=== PATIENT | male | born 1935 | race Hispanic/Latino ===

== ENCOUNTER 2017-02-28 16:13 | Inpatient (IN) | payer MEDICARE, OTHER ==
[2017-02-28 16:24] VITALS: BMI 21.2
[2017-02-28] MEDS ORDERED: Piperacill/Tazo 4.5gm in NS 4.5 GM/100 ML BAG IVPB STA (16:24)
[2017-02-28] MEDS ORDERED: Vancomycin 1gm in NS 250ml 1 GM/250 ML BAG IVPB STA (16:24)
--- NOTE | 2017-02-28 16:33 | ED PDOC ---
Arrival/HPI - General Time Seen by Provider: 02/28/17 16:15 Historian: EMS EM Caveat: Altered Mental Status - History of Present Illness Narrative History of Present Illness (Text): 02/28/17 16:29 81yo male with hx of dementia, presents with altered mental status, decreased PO intake, no urine output since yesterday. PMD: Dr. Newman Past Medical History - Provider Review Nursing Documentation Reviewed: Yes - Infectious Disease Hx of Infectious Diseases: None - Tetanus Immunization Tetanus Immunization: Unknown - Cardiac Hx Cardiac Disorders: Yes Hx Hypertension: Yes - Pulmonary Hx Respiratory Disorders: No - Neurological Hx Neurological Disorder: Yes (Syncope 08/2016, 10/2016) HX Cerebrovascular Accident: Yes (2014) - HEENT Hx Macular Degeneration: Yes - Renal Hx Renal Disorder: No - Endocrine/Metabolic Hx Diabetes Mellitus Type 2: Yes - Hematological/Oncological Hx Blood Disorders: No - Integumentary Hx Dermatological Disorder: No - Musculoskeletal/Rheumatological Hx Falls: No - Gastrointestinal Hx Gastrointestinal Disorders: No Other/Comment: egd for removal of foreigh body - Genitourinary/Gynecological Hx Incontinence: Yes - Psychiatric Hx Psychophysiologic Disorder: No Hx Emotional Abuse: No Hx Physical Abuse: No Hx Substance Use: No - Surgical History Hx Appendectomy: Yes - Anesthesia Hx Anesthesia Reactions: Yes Hx Malignant Hyperthermia: No - Suicidal Assessment Feels Threatened In Home Enviroment: No Family/Social History Family/Social History: Unknown Family HX Smoking Status: Former Smoker Hx Alcohol Use: No Hx Substance Use: No Hx Substance Use Treatment: No Allergies/Home Meds Allergies/Adverse Reactions: Allergies No Known Allergies Allergy (Verified 11/21/16 17:18) Home Medications: Home Meds Medication Instructions Recorded Confirmed QUEtiapine [SEROquel] 0 mg PO 02/28/17 Review of Systems - Review of Systems Systems not reviewed;Unavailable: Altered Mental Status Physical Exam - Physical Exam Narrative Physical Exam (Text): Physical exam cachectic in appearance, protecting his airway, following simple commands - Systems Exam Head: Present: Atraumatic, Normocephalic Pupils: Present: PERRL Extroacular Muscles: Present: EOMI Conjunctiva: Present: Normal Mouth: Present: Dry Mucous Membranes Neck: Present: Normal Range of Motion. No: MIDLINE TENDERNESS, Paraspinal Tenderness Respiratory/Chest: Present: Clear to Auscultation, Good Air Exchange. No: Respiratory Distress, Accessory Muscle Use, Tachypneic Cardiovascular: Present: Regular Rate and Rhythm, Normal S1, S2, Peripheal Pulses Present. No: Murmurs Abdomen: Present: Normal Bowel Sounds. No: Tenderness, Distention, Peritoneal Signs, Rebound, Guarding Back: Present: Normal Inspection. No: Midline Tenderness, Paraspinal Tenderness Upper Extremity: Present: Normal Inspection. No: Cyanosis, Edema Lower Extremity: Present: Normal Inspection. No: Edema Neurological: Present: motor grossly intact, following simple commands Skin: Present: Warm, Dry, Normal Color. No: Rashes Lymphatic: Present: OX3, NI, NC Psychiatric: Present: Abusable to tactile and verbal stimuli, not agitated Vital Signs Temp Pulse Resp BP Pulse Ox 02/28/17 18:04 89 19 134/51 L 95 02/28/17 16:29 99.2 F 72 20 145/66 92 L Medical Decision Making ED Course and Treatment: 02/28/17 16:33 81yo male with failure to thrive, decreased PO intake and no urine output. Appears dry and cachectic on examination. No airway compromise. As per EMS, there is no DNR/DNI order. Prior Visits: Notes and results from previous visits were reviewed. Patient discharged on after being evaluated for syncopal episode. EKG shows NSR at [address] segment elevations. Interpreted by me. 02/28/17 17:51 Chest xray interpreted by ED physician shows no pneumothorax, no cardiomegaly, no infiltrates 02/28/17 18:11 on reeval, pt alert and awake, speaking full sentence with out difficulty, no focal neurological deficits on examination dw Dr. Merly newman in detail, agrees with med/surg admission to his service - Lab Interpretations Lab Results: 02/28/17 16:50 02/28/17 16:50 Lab Results 02/28/17 16:50: Sodium 136, Chloride 105, Potassium 3.6, Carbon Dioxide 26, Anion Gap 9 L, BUN 21, Creatinine 1.2, Est GFR ( Amer) > 60, Est GFR (Non -Af Amer) 58, Random Glucose 96, Calcium 8.3 L, Phosphorus 3.1, Magnesium 1.7, Total Bilirubin 0.5, AST 20, ALT 22, Alkaline Phosphatase 63, Troponin I Pending , Total Protein 5.9, Albumin 2.8 L, Globulin 3.1, Albumin/Globulin Ratio 0.9 L 02/28/17 16:50: pO2 51, VBG pH 7.30 L, VBG pCO2 56.0, VBG HCO3 27.6, VBG Total CO2 29.3 H, VBG O2 Sat (Calc) 89.0 H, VBG Base Excess 0.1, VBG Potassium 3.7, Sodium 138.0, Chloride 110.0 H, Glucose 91, Lactate 1.2, FiO2 21.0, Venous Blood Potassium 3.7 02/28/17 16:50: PT 11.7, INR 1.08, APTT 29.8 02/28/17 16:50: WBC 10.9 D, RBC 3.51, Hgb 10.4 L, Hct 31.2 L, MCV 88.9, MCH 29.6, MCHC 33.3, RDW 13.4, Plt Count 268, MPV 10.1, Gran % 69.8 H, Lymph % (Auto ) 21.4 L, Mcculloch % (Auto) 6.1 H, Eos % (Auto) 1.7, Baso % (Auto) 1.0, Gran # 7.61 H, Lymph # 2.3, Mcculloch # 0.7 H, Eos # 0.2, Baso # 0.11 02/28/17 16:24: POC Glucose (mg/dL) 133 H - RAD Interpretation Radiology Orders: 02/28/17 16:24 CHEST PORTABLE [RAD] Stat - Medication Orders Current Medication Orders: Discontinued Medications Sodium Chloride 2,000 ml/ IV (SUPPLIES) 2,000 mls @ 3,810.18 mls/hr IV ONCE ONE PRN Reason: 60 ML/KG/HR Stop: 02/28/17 16:25 Last Admin: 02/28/17 18:04 Dose: 3,810.18 mls/hr Vancomycin HCl (Vancomycin 1gm) 1 gm in 250 mls @ 167 mls/hr IVPB STAT STA PRN Reason: Protocol Stop: 02/28/17 17:53 Piperacillin Sod/Tazobactam Sod (Zosyn 4.5 Gm In Ns 100ml) 4.5 gm in 100 mls @ 200 mls/hr IVPB STAT STA PRN Reason: Protocol Stop: 02/28/17 16:53 Last Admin: 02/28/17 18:04 Dose: 200 mls/hr Disposition/Present on Arrival - Present on Arrival Any Indicators Present on Arrival: No History of DVT/PE: No History of Uncontrolled Diabetes: Yes Urinary Catheter: No History Surgical Site Infection Following: None - Disposition Have Diagnosis and Disposition been Completed?: Yes Diagnosis: Dehydration Disposition: HOSPITALIZED Disposition Time: 18:15 Patient Plan: Observation Condition: FAIR
[2017-02-28 17:13] LABS: ADD MANUAL DIFF? NO
[2017-02-28 17:22] LABS: VENOUS BLOOD GAS BASE EXCESS 0.1 mmol/L (0.0-2.0)
[2017-02-28 17:23] LABS: BASO # 0.11 K/mm3 (0.0-2.0); EOS # 0.2 (0.0-0.7); EOS % 1.7 % (1.5-5.0); GRAN # 7.61 (1.4-6.5); GRAN % 69.8 % (50.0-68.0); HEMATOCRIT 31.2 % (42.0-52.0); LYMPH # 2.3 (1.2-3.4); LYMPH % 21.4 % (22.0-35.0); MEAN CELL VOLUME 88.9 fL (80.0-105.0); MEAN CORPUSCULAR HEMOGLOBIN 29.6 pg (25.0-35.0); MEAN CORPUSCULAR HGB CONC 33.3 g/dl (31.0-37.0); MEAN PLATELET VOLUME 10.1 fl (7.0-11.0); MONO # 0.7 (0.1-0.6); MONO % 6.1 % (1.0-6.0); PLATELET COUNT 268 10^3/uL (120.0-450.0); RED CELL DISTRIBUTION WIDTH 13.4 % (11.5-14.5); WHITE BLOOD COUNT 10.9 10^3/ul (4.5-11.0)
[2017-02-28 17:32] LABS: INR 1.08 (0.93-1.08); PARTIAL THROMBOPLASTIN TIME 29.8 Seconds (23.7-30.8)
[2017-02-28 17:34] LABS: ALB/GLOB RATIO 0.9 (1.1-1.8); ALKALINE PHOSPHATASE 63 U/L (38-133); ALT/SGPT 22 U/L (7-56); AST/SGOT 20 U/L (15-59); BILIRUBIN,TOTAL 0.5 mg/dL (0.2-1.3); BLOOD UREA NITROGEN 21 mg/dL (7-21); CALCIUM 8.3 mg/dL (8.4-10.5); CARBON DIOXIDE 26 mmol/L (21-33); CHLORIDE 105 mmol/L (98-107); GFR AFRICAN-AMERICAN > 60; GLUCOSE,RANDOM 96 mg/dL (70-110); MAGNESIUM 1.7 mg/dL (1.7-2.2); PHOSPHOROUS 3.1 mg/dL (2.5-4.5); POTASSIUM 3.6 mmol/L (3.6-5.0); SODIUM 136 mmol/L (132-148); TOTAL PROTEIN 5.9 g/dL (5.8-8.3)
[2017-02-28 18:13] LABS: TROPONIN I < 0.01 ng/mL
--- NOTE | 2017-02-28 22:12 | CARD ---
APPROVED REPORT EKG Measurement Heart [id number] <Conclusion> Normal sinus rhythm Nonspecific intraventricular block Nonspecific T wave abnormality Abnormal ECG
[2017-02-28] MEDS ORDERED: Pneumococcal 23-Valent Vaccine IM ONE (22:52)
[2017-03-01 07:20] LABS: PH,URINE 6.5 (4.7-8.0); URINE BILIRUBIN NEGATIVE (NEGATIVE); URINE BLOOD SMALL (NEGATIVE); URINE GLUCOSE (UA) NEGATIVE (NEGATIVE); URINE KETONE NEGATIVE (NEGATIVE); URINE LEUKOCYTE ESTERASE NEGATIVE Leu/uL (NEGATIVE); URINE PROTEIN NEGATIVE mg/dL (<30 mg/dL); URINE UROBILINOGEN 0.2 E.U./dL (<1 E.U./dL)
[2017-03-01 07:26] LABS: URINE APPEARANCE SL CLOUDY (CLEAR); URINE COLOR YELLOW (YELLOW)
[2017-03-01 07:35] LABS: URINE RBC 0 - 2 /hpf (0-2); URINE WBC NEGATIVE /hpf (0-6)
--- NOTE | 2017-03-01 10:07 | RAD ---
HISTORY: Sepsis Patient COMPARISON: 11/04/2016 FINDINGS: LUNGS: lung volumes are increased and fairly radiolucent -an element of emphysema/COPD is possible. Mild interstitial lung disease also is a consideration given the mild prominence of the interstitial lung markings. No significant change with the prior study is perceived. No interval consolidation suggested. PLEURA: No significant pleural effusion identified, no pneumothorax apparent. CARDIOVASCULAR: Normal heart size. Atherosclerotic vascular calcifications and thoracic aortic unfolding OSSEOUS STRUCTURES: Generalized osteopenia mild right shoulder arthrosis VISUALIZED UPPER ABDOMEN: Normal. OTHER FINDINGS: None. IMPRESSION: No interval infiltrate. Other pulmonary findings chronicity inferred are as noted above
--- NOTE | 2017-03-01 10:08 | HP ---
CHIEF COMPLAINT AND HISTORY OF PRESENT ILLNESS: This is a 81-year-old male who is coming into the [facility] with changes in his mental status. The patient lives at home with his . He has been havi ng decreased p.o. intake. The patient was recently discharged from the hospital. He is not able to give much information because of his underlying confusion. He had ripped out 2 IVs and is trying to rip out third IV this morning. He was given Ativan to help with his confusion. SOCIAL HISTORY: No history of smoking, drinking actively. PAST MEDICAL HISTORY: Syncope, fracture of T12, dementia, dyslipidemia, constipation, CVA. ALLERGIES: No known drug allergies. PAST SURGICAL HISTORY: Appendectomy. Past medical history is hypertension, osteoporosis, macular degeneration, diabetes type 2. PHYSICAL EXAMINATION: VITAL SIGNS: The patient has a temperature of 98.6, pulse of 81, blood pressure 132/85, respirations 20, O2 saturation 94%. GENERAL: Patient lying in bed, flat, and in no apparent distress. HEAD AND NECK EXAM: Atraumatic, normocephalic. Conjunctivae are pink. Throat clear and mouth with moist mucosa. Oropharynx benign. EYES: Extraocular movements are intact. PERRLA. NECK: Supple. No JVD, thyromegaly, or adenopathy. No bruits. HEART: S1 and S2 regular rate and rhythm. No murmurs, rubs, or gallops. LUNGS: Clear to auscultation bilaterally. No wheezing rales or rhonchi appreciated. No retraction s on exam. ABDOMEN: Soft, nontender, nondistended. Bowel sounds are positive in all quadrants. No rebound. No hepatosplenomegaly. EXTREMITIES: No cyanosis, clubbing, or edema. NEURO: No facial asymmetry, tongue is midline, no uvula deviation. Power is 5/5 in upper extremity and 5/5 in lower extremity. Sensation is normal in upper extremity and lower extremity. PSYCH: Awake, alert, oriented x 0. The patient has poor insight. He is agitated. : No CVA tenderness VASCULAR: 2+ pulses in carotid and pedal pulses. SKIN: No erythema or abnormal nodules noted. SPINE: Normal curvature. LYMPHADENOPATHY: No anterior cervical or posterior cervical adenopathy. No inguinal adenopathy. LABORATORY DATA: Reviewed. White count of 10.9, hemoglobin of 10.4. Chemistry shows creatinine is 1.2. Urine shows blood that is small, otherwise negative. EKG shows sinus rhythm at 78, no ST-T changes. Chest x-ray shows no infiltrates. ASSESSMENT: 1. Delirium. 2. Dementia. 3. Hypertension. 4. Osteoporosis. 5. Macular degeneration. 6. Diabetes type 2. 7. History of fracture of T12 vertebra. PLAN: The patient is going to be admitted to the hospital. He is going to be on Ativan. I will get psychiatric evaluation. The patient is going to be placed on Seroquel. The patient was given antib iotics. I do not see a need for antibiotics. The patient does not have a fever. Does not have an e levated white count. Urine looks fairly good. The patient will need physical therapy. I will speak to the patient's to give her an update. Jakob Newman MD cc: [id number] TT: 03/01/2017 10:07:59 nj
[2017-03-01] MEDS: POLYETHYLENE GLYCOL 3350 17 GM/Dose PACKET PO SCH (10:40)
--- NOTE | 2017-03-01 18:32 | CON ---
DATE: 03/01/2017 Shortly, patient is 81-year-old male with history of dementia. The patient was admitted on the medical floor for evaluation of altered mental status, decreased p.o. intake, and also no urine output for the past 24 hours. Psych consult was called for evaluation of altered mental status. Thi s production underwriter attempted to speak to this patient on the medical side. The patient was status post medicat ion. The patient got Ativan 0.5 mg IV push at the nighttime and this production underwriter was not able to have rosina ningful conversation. Moreover, patient got Seroquel 50 mg at 10:30 and patient was very sleepy. Co llateral information was obtained from the nursing staff. The patient yesterday presented to be rest less, agitated, was trying to scratch himself. Today, patient is much calmer. VITAL SIGNS: Stable. LABORATORY DATA: Labs reviewed. MEDICATIONS: Reviewed. The patient was on Ativan 0.5 mg q.6 hours p.r.n. for agitation and Seroquel was 50 mg daily. We will decrease the dose of Seroquel to 12.5 mg and move it to the nighttime. This production underwriter reviewed previous history. The patient was seen by Dr. Piña in the past, most recent w as in 06/2016. The patient was on Seroquel 50 mg at bedtime and ____ as well as Ativan. IMPRESSION: Altered mental status, most likely related to the medical issues as well as patient pron e to have delirium because of dementia. PLAN: Continue current management. As per nursing staff, patient had urine output. This production underwriter fallon pollock redistribute Seroquel and decrease the dose to 12.5 mg at the nighttime. Should continue Ativan as needed. We will try to follow up with this patient tomorrow. Thank you very much for letting me participate in care of your patient. Mela Colbert MD cc: [phone] TT: 03/01/2017 18:32:20 Confirmation # [id number] Dictation # [id number] sn
[2017-03-02 07:11] LABS: BLOOD UREA NITROGEN 16 mg/dL (7-21); CARBON DIOXIDE 27 mmol/L (21-33); CHLORIDE 104 mmol/L (98-107); GFR AFRICAN-AMERICAN > 60; GLUCOSE,RANDOM 87 mg/dL (70-110); MAGNESIUM 1.7 mg/dL (1.7-2.2); POTASSIUM 3.8 mmol/L (3.6-5.0); SODIUM 138 mmol/L (132-148)
[2017-03-02] MEDS: POLYETHYLENE GLYCOL 3350 17 GM/Dose PACKET PO SCH (10:19)
--- NOTE | 2017-03-02 10:37 | PN ---
DATE: 03/02/2017 Shortly, the patient is a 81-year-old male with long history of Alzheimer's dementia. The patient was admitted on the medical side for altered mental status. The patient was dehydrated. Als o, patient had decreased urinary output and low p.o. intake. Psych consult was called for evaluation of altered mental status. Yesterday, this lyric writer attempted to speak to the patient, but the patient was deeply sleeping, status post medication. The patient was followed up today. The patient presen anastasiya more alert, oriented to himself. The patient kept repeating that he ____ and was not able to giv e the address, but seems to be confused. The patient does not know that he is in the hospital. The patient was not in acute distress, was calm and cooperative. The patient was having intermittent eye contact. Speech was rambling. The patient was telling random things about previous rehab, about th e fact that he cannot walk. The patient denied being depressed, denied thoughts of harming himself, denied thoughts of harming others. The patient denied hallucinations. The patient does not appear t o be internally preoccupied, but appears to be confused. VITAL SIGNS: Stable. Temperature 97.5, blood pressure 158/98, respirations 20, oxygen saturation is 96. MEDICATIONS: Reviewed. The patient is on Ativan IV push q. 6 hours p.r.n. Last dose was on 02/28. The patient was on Seroquel yesterday 50 mg daily. The patient was very sedated and this lyric writer swit ched Seroquel and decrease the dose to 12.5 mg at the nighttime scheduled. The patient had a good ni ght's sleep. Did not have any behavioral incident. LABORATORIES: Reviewed. Most recent was from 02/28. MENTAL STATUS EXAMINATION: As this lyric writer described above, the patient was alert, confused, oriented in self only. Speech was monotone, low volume, underproductive. Mood described as "I'm not depress ed." Affect was flat. Thought process confabulation and disorganized. Thought content: The patien t denied visual, auditory, tactile hallucinations. Denied paranoid ideations. The patient denied th oughts of harming himself or others, denied intent or plan. The patient has episodes of restless beh avior, trying to climb off the bed, but improving. Insight and judgment are impaired. The patient h as chronic Alzheimer's dementia. Impulses are better controlled. IMPRESSION: Delirium on dementia, dehydration and poor p.o. intake, but patient is improving, had ur ine output. PLAN: This lyric writer is not sure what patient's baseline. Social work evaluation. Case management inv olvement in order to find if the patient is safe to continue to live at home. The patient is improvi ng obviously. The patient is on Seroquel 12.5 mg at the nighttime which could improve sleep and conf usion. At the same time, family needs to be involved in order to make disposition plan. Case will b e discussed with Dr. Newman. Thank you very much for letting me participate in care of your patient. Should you have any question s, give me a call back. Mela Colbert MD cc: [phone] TT: 03/02/2017 10:36:55 Confirmation # [id number] Dictation # [id number] tn
--- NOTE | 2017-03-02 11:47 | PN ---
DATE: 03/02/2017 DATE: 03/02/2017 The patient has no complaints of any chest pain. No shortness of breath, no headaches. He remains c onfused. PHYSICAL EXAMINATION: VITAL SIGNS: Temperature is 97.5, pulse of 80. Blood pressure is 158/98. Respirations 20. GENERAL: The patient comfortable, in no acute distress. HEENT: Anicteric sclerae. Moist mucosa. NECK: No JVD or adenopathy. CARDIAC: S1/S2. No murmurs. No rubs. Regular. RESPIRATORY: Clear to auscultation bilaterally. No wheezes, rales, or rhonchi. Good air entry. ABDOMEN: Bowel sounds are positive, soft, nontender, and nondistended. EXTREMITIES: No edema. Has 1+ pulses. LABS: Creatinine is 1.0. ASSESSMENT: 1. Delirium. 2. Dementia. 3. Hypertension. 4. Osteoporosis. 5. Macular degeneration. 6. Diabetes type 2. PLAN: The patient is comfortable. He is on Seroquel. He will continue. He is going to be on Kiera AX for constipation and Ativan as needed. Jakob Newman MD cc: [id number] TT: 03/02/2017 11:47:03 Confirmation # [id number] Dictation # [id number] jn
--- NOTE | 2017-03-02 15:13 | CP.PCM.CON ---
History of Present Illness - History of Present Illness History of Present Illness: PODIATRY CONSULT NOTE 81 year-old male with hx of dementia, presents with altered mental status seen concerning elongated toenails. Pt is a poor histprian and his recounting of PMH is spotty. Patient denies recent fever/ chills/ chest pain/ sob/ nausea/ vomiting. Past Patient History - Infectious Disease Hx of Infectious Diseases: None - Tetanus Immunizations Tetanus Immunization: Unknown - Past Social History Smoking Status: Former Smoker - CARDIAC Hx Cardiac Disorders: Yes Hx Hypercholesterolemia: Yes Hx Hypertension: Yes - PULMONARY Hx Respiratory Disorders: No - NEUROLOGICAL HX Cerebrovascular Accident: Yes (2014) - HEENT Hx Macular Degeneration: Yes Other/Comment: egd for removal of foreign body 06/08/14 - RENAL Hx Chronic Kidney Disease: No - ENDOCRINE/METABOLIC Hx Diabetes Mellitus Type 2: Yes - HEMATOLOGICAL/ONCOLOGICAL Hx Blood Disorders: No - INTEGUMENTARY Other/Comment: reddened sacrum/ long curled thick toenails both feet/ unable to do proper skin assesment due to agitation - MUSCULOSKELETAL/RHEUMATOLOGICAL Hx Falls: Yes (last one couple weeks ago) Hx Unsteady Gait: Yes (w/ch can't walk/stand) - GASTROINTESTINAL Hx Gastrointestinal Disorders: No Other/Comment: egd for removal of foreigh body - GENITOURINARY/GYNECOLOGICAL Hx Incontinence: Yes Other/Comment: too weak to walk to bathroom/frequent falls - PSYCHIATRIC Hx Psychophysiologic Disorder: No Hx Depression: Yes Hx Emotional Abuse: No Hx Physical Abuse: No Other/Comment: up at night/pushes furniture/ jumps oob/ can become violent - SURGICAL HISTORY Hx Appendectomy: Yes Other/Comment: sebaceous cyst removal - ANESTHESIA Hx Anesthesia Reactions: Yes Hx Malignant Hyperthermia: No Meds Allergies/Adverse Reactions: Allergies Allergy/AdvReac Type Severity Reaction Status Date / Time No Known Allergies Allergy Verified 11/21/16 17:18 - Medications Medications: Current Medications Alprazolam (Xanax) 0.5 mg PO Q6H PRN; Protocol PRN Reason: Anxiety Polyethylene Glycol (Miralax) 17 gm PO DAILY [facility] Last Admin: 03/02/17 10:19 Dose: 17 gm Quetiapine Fumarate (Seroquel) 12.5 mg PO HS [facility] Last Admin: 03/01/17 23:00 Dose: 12.5 mg Physical Exam - Constitutional Appears: Well, Non-toxic, Toxic - Extremities Exam Additional comments: VASC: DP and PT pedal pulses bilaterally were graded 1/4. Capillary refill time to level of digits was <4 seconds. Temperature gradient runs normal. No pedal edema noted. No calf tenderness bilaterally. DERM: Bilateral 4th interspace maceration with mal-odor noted, and skin flaking. No open wounds, lesions, or macerations noted bilaterally. Skin is thin bilaterally, though supple. Elongated, thickened nail plates with subungal debris to all 10 digits NEURO: Protective sensation if grossly diminished bilaterally. Negative Babinski bilaterally. MUSCK: Bilateral foot, leg, and thigh decreased muscle tone, density, and definition noted compared. Knee joints bilateral are unable to fully extend into 180 degree extension. No tenderness to palpations noted bilaterally. Pedal muscle strength weak bilaterally in all medial, lateral, and posterior muscle groups graded 5/5. Pedal muscle strength in anterior muscle groups is graded 4/5. - Neurological Exam Neurological exam: Alert Results - Vital Signs Recent Vital Signs: Last Vital Signs Temp 97.5 F L 03/02/17 07:30 Pulse 80 03/02/17 07:30 Resp 20 03/02/17 07:30 BP 158/98 H 03/02/17 07:30 Pulse Ox 96 03/02/17 07:30 - Labs Result Diagrams: 02/28/17 16:50 03/02/17 06:30 Labs: Laboratory Results - last 24 hr 03/02/17 03/02/17 06:30 06:30 Sodium 138 Potassium 3.8 Chloride 104 Carbon Dioxide 27 Anion Gap 11 BUN 16 Creatinine 1.0 Est GFR ( Amer) > 60 Est GFR (Non-Af Amer) > 60 Random Glucose 87 Calcium 9.0 Magnesium 1.7 TSH 3rd Generation 2.02 Assessment & Plan - Assessment and Plan (Free Text) Assessment: 78 year old male with 1) Onychomycosis and tinea pedis 2) Bilateral lower extremity weakness, left leg muscle atrophy. Plan: Pt was evaluated and treated with attending Dr. Goins present. Chart, labs, and vitals were reviewed. Ordered Lotrisone for used on feet bilaterally. Aseptic onycho-reduction performed to all 10 nail plates using nail nipper without incident down to hygienic length. Podiatry will continue to follow patient while in house. Pt is stable per podiatric standpoint for discharge. Thank you for allowing podiatry service to participate in the care of this patient. - Date & Time Date: 03/02/17 Time: 10:20
[2017-03-02] MEDS: Clotrimazole/Betamethasone Lotion(30 ml) TOP SCH (20:19)
--- NOTE | 2017-03-03 09:17 | PN ---
DATE: 03/03/2017 SUBJECTIVE: The patient has no complaints of any chest pain, no shortness of breath, no headaches or dizziness. PHYSICAL EXAMINATION: VITAL SIGNS: Temperature is 98.7, pulse is 71, blood pressure 130/86, respirations 18. GENERAL: The patient comfortable, in no acute distress. HEENT: Anicteric sclerae. Moist mucosa. NECK: No JVD or adenopathy. CARDIAC: S1/S2. No murmurs. No rubs. Regular. RESPIRATORY: Clear to auscultation bilaterally. No wheezes, rales, or rhonchi. Good air entry. ABDOMEN: Bowel sounds are positive, soft, nontender, and nondistended. EXTREMITIES: No edema. Has 1+ pulses. LABORATORY DATA: White count of 10.9, hemoglobin 10.4, creatinine is 1.0. ASSESSMENT: 1. Delirium. 2. Dementia, Alzheimer's type. 3. Hypertension. 4. Osteoporosis. 5. Macular degeneration. 6. Diabetes type 2. PLAN: The patient is currently comfortable. He is on MiraLax for constipation. He is on Seroquel. He is going continue on Xanax. The patient was seen by Dr. Goins. The patient is also being foll owed by psychiatry. The patient is on a heart healthy diet. His blood cultures have been negative. Behavior is better, improved. Jakob Newman MD cc: [id number] TT: 03/03/2017 09:17:05 Confirmation # [id number] Dictation # [id number] [place]
[2017-03-03] MEDS: POLYETHYLENE GLYCOL 3350 17 GM/Dose PACKET PO SCH (11:37)
[2017-03-03] MEDS: Clotrimazole/Betamethasone Lotion(30 ml) TOP SCH ×2 (11:37→17:52)
--- NOTE | 2017-03-03 14:46 | PN ---
DATE: 03/03/2017 Shortly, the patient is a 81-year-old male with a history of dementia. The patient was adm itted on the medical side for altered mental status as well as decreased urine output. Psych consult was called for evaluation of mental status and change in mental status. This display card writer changed patient 's medications. The patient was started on Seroquel 12.5 mg at the nighttime. The patient was follo wed up today. The patient presented to be sleepy, easily arousable. No behavioral incidents. The p atient has dementia. This display card writer has impression that patient is doing much better. Two days ago, yue ramos was trying to climb off the bed, was restless. Right now, patient is much calmer. This display card writer spoke to the director of social work about advanced directives because we need to discuss treatment options in the future as well as family needs to be involved. VITAL SIGNS: This display card writer reviewed vital signs. Vital signs seem to be stable. Temperature 98.7, pu lse 71, blood pressure 138/86, respirations 18, oxygen saturation is 97. MEDICATIONS: Reviewed. Seroquel 12.5 mg at the nighttime. The patient is on MiraLax, Lotrisone. L ooks much better. Urinalysis was done on the , within normal limits. Notes reviewed from Dr. Newman. MENTAL STATUS EXAMINATION: The patient appeared to be sleepy, easily arousable. No behavioral incid ents. The patient was oriented to self only. Speech is monotonous and underproductive. The patient denied being depressed. At times, thought process confabulation. The patient denied visual, audito ry, or tactile hallucinations. Denied paranoid ideations. No signs of agitation or trying to harm h imself. Insight and judgment are impaired. Impulses are better controlled. IMPRESSION: Delirium on dementia, dehydration which is much better. The patient's urine output is i mproving. PLAN: Continue current management, director of social work. This display card writer spoke to the director of social work and monika fournier. Family should be involved in order to obtain advanced directives. I know that patient li ves with . needs to be involved. Meanwhile, there are no signs of agitation or aggression. The patient is stable on Seroquel 12.5 mg at the nighttime. This display card writer will sign off. Should you have any questions, give me a call back. Thank you very much for letting me participate in the care of your patient. Mela Colbert MD cc: [phone] TT: 03/03/2017 14:45:48 Confirmation # [id number] Dictation # [id number] rn
[2017-03-03 17:01] VITALS: RESP 20
[2017-03-04] MEDS: POLYETHYLENE GLYCOL 3350 17 GM/Dose PACKET PO SCH (10:28)
[2017-03-04] MEDS: Clotrimazole/Betamethasone Lotion(30 ml) TOP SCH (10:29)
[2017-03-04 16:34] VITALS: BP 128/80; PULSE 84; TEMP 98.9; O2SAT 93
--- NOTE | 2017-03-04 19:32 | DS ---
The patient is a 81-year-old, seen and examined, lying in bed, seems to be comfortable. PHYSICAL EXAMINATION: GENERAL: He is lethargic, sleepy, only opens eyes on verbal command. VITAL SIGNS: The patient is afebrile, pulse 86, respirations 20, blood pressure 134/80. LUNGS: Bilateral fair airflow, no rhonchi or crackle. HEART: S1, S2 audible. ABDOMEN: Soft, nontender, no rebound, no guarding. NEUROLOGIC: He is sleepy, but arousable. LABORATORY DATA: No new labs available today. Dr. Plaza and Dr. Newman's notes reviewed and apprec iated. ASSESSMENT: 1. Dementia with dehydration. 2. History of hypertension. 3. History of osteoporosis. 4. Visual impairment. 5. Non-insulin dependent diabetes. PLAN: Plan is for the discharge today. According to nurse, will come and pick him up in the af [place]. Initial plan was for long-term, but apparently because of insurance reason, it did not go t hrough, so the patient will be followed by Dr. Newman as outpatient. Drew Garcia MD cc: [phone] TT: 03/04/2017 19:31:21 ln
== END 2017-03-04 18:16 | disposition home or self-care (01) | DRG 57 ==
LOC: ED 16:13 → ERH 18:15 → 5RNO 21:18 → OBSVTOIN 03-01 15:46
PROVIDERS: ADMIT Internal Medicine Nephrology; ATTEND Internal Medicine Nephrology
DX: G30.9 Alzheimer's disease, unspecified (principal); R64 Cachexia; F02.80 Dementia in other diseases classified elsewhere, unspecified severity, without behavioral disturbance, psychotic disturbance, mood disturbance, and anxiety; E11.9 Type 2 diabetes mellitus without complications; I10 Essential (primary) hypertension; B35.1 Tinea unguium; E86.0 Dehydration; M62.58 Muscle wasting and atrophy, not elsewhere classified, other site; M81.0 Age-related osteoporosis without current pathological fracture; H35.30 Unspecified macular degeneration; H54.7 Unspecified visual loss; E78.5 Hyperlipidemia, unspecified; Z87.81 Personal history of (healed) traumatic fracture; B35.3 Tinea pedis; R53.1 Weakness; E78.00 Pure hypercholesterolemia, unspecified; Z79.84 Long term (current) use of oral hypoglycemic drugs; Z86.73 Personal history of transient ischemic attack (TIA), and cerebral infarction without residual deficits; Z87.891 Personal history of nicotine dependence; Z90.49 Acquired absence of other specified parts of digestive tract; R32 Unspecified urinary incontinence; R62.7 Adult failure to thrive; K59.00 Constipation, unspecified; R41.0 Disorientation, unspecified; R26.81 Unsteadiness on feet; F32.89 Other specified depressive episodes

== ENCOUNTER 2017-03-28 16:21 | Inpatient (IN) | payer MEDICARE, OTHER ==
[2017-03-28] MEDS ORDERED: Sodium Chloride 0.9% 1,000 ML IV STA ×4 (16:28→19:14)
--- NOTE | 2017-03-28 16:30 | ED PDOC ---
Arrival/HPI <Gaurang Mckoy - Last Filed: 03/28/17 19:40> - General Historian: EMS EM Caveat: Dementia - Critical Care Critical Care Time: Excluding Proc Time <Roberto Mejia - Last Filed: 03/28/17 20:50> - General Chief Complaint: Altered Mental Status Time Seen by Provider: 03/28/17 16:26 - History of Present Illness Narrative History of Present Illness (Text): 03/28/17 16:27 The patient is a 81yo male, PMHx of dementia, multiple strokes, is brought to the Emergency department by EMS for evaluation of altered mental status, vomiting and abdominal pain. A full HPI from the patient is limited due to his dementia. Per EMS, pt was found at bedside with brown vomitus on his bed, also the pt had an episode of brown vomit on his way to the Emergency department. Pt currently states he has abdominal pain. No other complaints. PCP: Dr. Orantes (per pt's prior records) (Roberto Mejia) Past Medical History - Provider Review Nursing Documentation Reviewed: Yes - Infectious Disease Hx of Infectious Diseases: None - Tetanus Immunization Tetanus Immunization: Unknown - Cardiac Hx Cardiac Disorders: Yes Hx Hypertension: Yes - Pulmonary Hx Respiratory Disorders: No - Neurological HX Cerebrovascular Accident: Yes (2014) Hx Dementia: Yes - HEENT Hx Macular Degeneration: Yes Other/Comment: egd for removal of foreign body 06/08/14 - Renal Hx Renal Disorder: No - Endocrine/Metabolic Hx Diabetes Mellitus Type 2: Yes - Hematological/Oncological Hx Blood Disorders: No - Integumentary Other/Comment: reddened sacrum/ long curled thick toenails both feet/ unable to do proper skin assesment due to agitation - Musculoskeletal/Rheumatological Hx Falls: Yes (last one couple weeks ago) Hx Unsteady Gait: Yes (w/ch can't walk/stand) - Gastrointestinal Hx Gastrointestinal Disorders: No Other/Comment: egd for removal of foreigh body - Genitourinary/Gynecological Hx Incontinence: Yes Other/Comment: too weak to walk to bathroom/frequent falls - Psychiatric Hx Psychophysiologic Disorder: No Hx Depression: Yes Hx Emotional Abuse: No Hx Physical Abuse: No Hx Substance Use: No Other/Comment: up at night/pushes furniture/ jumps oob/ can become violent - Surgical History Hx Appendectomy: Yes Other/Comment: sebaceous cyst removal - Anesthesia Hx Anesthesia Reactions: Yes Hx Malignant Hyperthermia: No - Suicidal Assessment Feels Threatened In Home Enviroment: No <Roberto Mejia - Last Filed: 03/28/17 20:50> Family/Social History - Physician Review Nursing Documentation Reviewed: Yes Family/Social History: Unknown Family HX Smoking Status: Former Smoker Hx Alcohol Use: No Hx Substance Use: No Hx Substance Use Treatment: No <Roberto Mejia - Last Filed: 03/28/17 20:50> Allergies/Home Meds <BrayancharGaurang richardson - Last Filed: 03/28/17 19:40> <Roberto Mejia - Last Filed: 03/28/17 20:50> Allergies/Adverse Reactions: Allergies No Known Allergies Allergy (Verified 11/21/16 17:18) Review of Systems - Review of Systems Systems not reviewed;Unavailable: Dementia Gastrointestinal: Abdominal Pain (diffuse), Vomiting (x2 ) <Roberto Mejia - Last Filed: 03/28/17 20:50> Physical Exam Vital Signs Reviewed: Yes Appearance: Positive for: Other (pallor, diaphoretic) - Systems Exam Head: Present: Atraumatic, Normocephalic Pupils: Present: PERRL Extroacular Muscles: Present: Other (left eye deviation) Conjunctiva: Present: Other (pale) Cardiovascular: Present: Bradycardic Abdomen: Present: Tenderness (diffuse) Rectal: Present: Other (Stool brown; ) Upper Extremity: Present: Neurovascularly Intact, Other (weakness noted bilaterally) Lower Extremity: Present: Neurovascularly Intact, Other (weakness noted bilaterally) Neurological: Present: Other (left eye deviation, facial asymmetry) Psychiatric: Present: Alert (AO x2) <Roberto Mejia - Last Filed: 03/28/17 20:50> Vital Signs Temp Pulse Resp BP Pulse Ox 03/28/17 19:28 72 19 130/71 93 L 03/28/17 19:03 64 19 88/43 L 95 03/28/17 18:32 61 24 101/51 L 93 L 03/28/17 18:10 70 20 98/62 L 95 03/28/17 17:47 73 24 88/40 L 92 L 03/28/17 17:26 76 18 114/75 97 03/28/17 17:03 91 H 20 132/66 95 03/28/17 16:54 67 19 103/53 L 96 03/28/17 16:30 59 L 74/32 L 03/28/17 16:22 97 F L 59 L 20 81/48 L 96 Medical Decision Making <Gaurang Mckoy - Last Filed: 03/28/17 19:40> - Critical Care Critical Care Minutes: 60 minutes - RAD Interpretation [employer] Layout: ED Physician - EKG Interpretation Interpreted by ED Physician: Yes <Willian Mejiao Delores - Last Filed: 03/28/17 20:50> ED Course and Treatment: R femoral triple lumen central line was placed by Resident under the supervision of the Attending Physician. CXR was ordered after procedure because R IJ was attempted. Repeat CXR in 2 hours. (LeeleeKarlay) 03/28/17 16:37 Impression: 81 yo male presents with altered mental status, vomiting and abdominal pain. Differential Diagnosis included but are not limited to: Altered Mental Status, r /o GI Bleed vs Anemia, Abdominal Pain r/o Diverticulitis, diverticulosis Plan: -- EKG -- CT AP w/o PO or IV contrast -- CT Head w/o contrast -- IV fluids -- Protonix 80 mg IVP -- Type and screen -- Labs -- Blood culture -- Urinalysis -- Reassess and disposition Prior Visits: Notes and results from previous visits were reviewed. Patient was last seen in the Emergency department on 11/21/16. Progress Notes: 03/28/17 16:45 Called blood bank to prepare 2 units of blood since patient looked pale, was hypotensive and reported to have coffee ground emesis. Repeat vitals after bolus of fluids show: Blood pressure of 103/53; HR of 70 bpm 03/28/17 17:01 Pt's labs indicate hemoglobin levels of 11.5; blood bank order cancelled. 03/28/17 17:03 Pt with an episode of vomiting in ER; Zofran 4mg IV ordered. Guaiac test of vomit is negative. Pt w/ repeat BP of 132/88 HR of 82 s/p completion of 1.5 liter of fluids. 03/28/17 18:30 Dr. Magallanes called regarding CT AP who states the study will be read soon. I was able to reach again after second call. She states that patient was not doing well for a couple of days. He was not acting like himself and slowly decompensating. After PT therapy today at 4pm patient was very week so she called EMS. 03/28/17 19:49 Right femoral central line placed by surgical garment fitter with my supervision. Attempt made with right IJ with no success but we were able to get right femoral. CXR ordered. Pt started on levophed secondary to hypotension despite fluid resuscitations. Patient complaining of abdominal pain. Abd soft but tender diffusely with guarding. CT AP still pending results. Case discussed with ICU Dr. Woodward who accepts the case. Case discussed with Dr. Sanchez who knows patient well. He will place under his service. 03/28/17 19:[address] Mccormack. Surgical Attending who I reviewed CT results with. She recommended calling surgical garment fitter and she will see patient on admission. I discussed case with Dr. Dill, surgical garment fitter who will come see patient in ED in 30 minutes. It was reported patient had a bowel movement and pain improved. Blood pressure improved with levophed IV and IVF. CXR reviewed with no PTX s/p attempt of right IJ. (Roberto Mejia) - Lab Interpretations Lab Results: 03/28/17 16:35 03/28/17 16:35 Lab Results 03/28/17 16:35: Blood Type A POSITIVE, Antibody Screen Negative, Crossmatch See Detail, BBK History Checked Patient has bt 03/28/17 16:35: pO2 74 H, VBG pH 7.37, VBG pCO2 41.0, VBG HCO3 23.7, VBG Total CO2 25.0, VBG O2 Sat (Calc) 97.6 H, VBG Base Excess -1.5 L, VBG Potassium 3.9, Sodium 139.0, Chloride 106.0, Glucose 146 H, Lactate 3.1 H, FiO2 21.0, Venous Blood Potassium 3.9 03/28/17 16:35: Sodium 137, Chloride 105, Potassium 3.8, Carbon Dioxide 24, Anion Gap 12, BUN 21, Creatinine 1.2, Est GFR ( Amer) > 60, Est GFR (Non- Af Amer) 58, Random Glucose 133 H, Calcium 9.2, Total Bilirubin 0.6, AST 23, ALT 11, Alkaline Phosphatase 61, Lactate Dehydrogenase 379, Total Creatine Kinase 28 L, Troponin I < 0.01, Total Protein 6.3, Albumin 3.2, Globulin 3.2, Albumin/Globulin Ratio 1.0 L, Amylase 84, Lipase 48 03/28/17 16:35: PT 11.5, INR 1.06, APTT 27.5 03/28/17 16:35: WBC 10.6, RBC 3.80, Hgb 11.5 L, Hct 33.7 L, MCV 88.7, MCH 30.3, MCHC 34.1, RDW 13.4, Plt Count 346, MPV 10.4, Gran % 32.6 L, Lymph % (Auto) 54.8 H, Chase % (Auto) 4.8, Eos % (Auto) 5.1 H, Baso % (Auto) 2.7, Gran # 3.44, Lymph # 5.8 H, Chase # 0.5, Eos # 0.5, Baso # 0.29 03/28/17 16:26: Blood Type Pending, Antibody Screen Pending, BBK History Checked Patient has bt - RAD Interpretation Narrative RAD Interpretations (Text): 03/28/17 16:59 Chest X-ray reviewed, no acute disease. No infiltrates noted. No free air in diaphragm noted. (Roberto Mejia) Radiology Orders: 03/28/17 16:26 CHEST PORTABLE [RAD] Stat 03/28/17 16:28 ABD & PELVIS W/O PO OR IV CONT [CT] Stat 03/28/17 16:29 HEAD W/O CONTRAST [CT] Stat - EKG Interpretation EKG Interpretation (Text): 03/28/17 16:41 Sinus bradycardia 1st degree AV block ST changes noted in anterolateral leads (Roberto Mejia) - Medication Orders Current Medication Orders: Heparin Sodium (Porcine) (Heparin) 5,000 units SC Q12 OMAR PRN Reason: Protocol NOREPINEPHRINE BIT/0.9 % NACL (Levophed 4 Mg/ 250 Ml Ns Premixed) 4 mg in 250 mls @ 15 mls/hr IV .[id number] PRN; Protocol; 4 MCG/MIN PRN Reason: TITRATE PER MD ORDER Last Admin: 03/28/17 19:24 Dose: 3.8 mls/hr Sodium Chloride (Sodium Chloride 0.9%) 1,000 mls @ 125 mls/hr IV .Q8H OMAR Vancomycin HCl (Vancomycin 1gm) 1 gm in 250 mls @ 167 mls/hr IVPB Q12H OMAR PRN Reason: Protocol Piperacillin Sod/Tazobactam Sod (Zosyn 3.375 In Ns 100ml) 100 mls @ 200 mls/hr IVPB Q6 OMAR PRN Reason: Protocol Stop: 03/29/17 06:29 Morphine Sulfate (Morphine) 2 mg IVP Q4H PRN PRN Reason: Pain, severe (8-10) Ondansetron HCl (Zofran Inj) 4 mg IVP Q6H PRN PRN Reason: Nausea/Vomiting Pantoprazole Sodium (Protonix Inj) 40 mg IVP DAILY OMAR Discontinued Medications Sodium Chloride (Sodium Chloride 0.9%) 1,000 mls @ 999 mls/hr IV .Q1H1M STA Stop: 03/28/17 17:28 Last Admin: 03/28/17 17:00 Dose: 999 mls/hr Sodium Chloride (Sodium Chloride 0.9%) 1,000 mls @ 999 mls/hr IV .Q1H1M STA Stop: 03/28/17 17:34 Last Admin: 03/28/17 17:01 Dose: 999 mls/hr Piperacillin Sod/Tazobactam Sod (Zosyn 4.5 Gm In Ns 100ml) 4.5 gm in 100 mls @ 200 mls/hr IVPB STAT STA PRN Reason: Protocol Stop: 03/28/17 18:06 Last Admin: 03/28/17 18:08 Dose: 200 mls/hr Sodium Chloride (Sodium Chloride 0.9%) 1,000 mls @ 999 mls/hr IV .Q1H1M STA Stop: 03/28/17 19:03 Last Admin: 03/28/17 18:18 Dose: 999 mls/hr NOREPINEPHRINE BIT/0.9 % NACL (Levophed 4 Mg/ 250 Ml Ns Premixed) Confirm Administered Dose 4 mg in 250 mls @ ud IV .STK-MED ONE Stop: 03/28/17 19:11 Last Admin: 03/28/17 19:21 Dose: 1 mg Sodium Chloride (Sodium Chloride 0.9%) 1,000 mls @ 999 mls/hr IV .Q1H1M STA Stop: 03/28/17 20:14 Last Admin: 03/28/17 19:21 Dose: 999 mls/hr Lidocaine HCl (Lidocaine 1% (20ml)) Confirm Administered Dose 20 ml .ROUTE .STK- MED ONE Stop: 03/28/17 18:37 Ondansetron HCl (Zofran Inj) 4 mg IVP STAT STA Stop: 03/28/17 17:04 Last Admin: 03/28/17 17:09 Dose: 4 mg Pantoprazole Sodium (Protonix Inj) 80 mg IVP STAT STA Stop: 03/28/17 16:27 Last Admin: 03/28/17 17:02 Dose: 80 mg Procedures - Time-Out Type of Procedure: Femoral Central Line Site of Procedure: R femoral vein Correct Patient (with visual ID + MR# on ID Band): Yes Correct Procedure: Yes Correct Site Marked: Yes X-Ray Marked: NA Medication Reconciliation / Bloodwork / Allergies Checked: Yes Physician Name: Gaurang Mckoy PGY1, Dr. Mejia RN Name: Leila - Central Line Central Line Lumen: triple Central Line Procedure: betadine prep, sterile drapes applied, sterile dressing applied Central Line Postion: femoral (R) Anesthesia: Lidocaine cc's of anesthesia: 5 Complications: none Central Line Post Position: sutured, good blood return, position confirmed w/ CXR <Gaurang Mckoy - Last Filed: 03/28/17 19:40> <Roberto Mejia - Last Filed: 03/28/17 20:50> - Central Line Progress: Procedure was done by the Resident under the supervision of the ED attending ( Gaurang Mckoy) Disposition/Present on Arrival <Gaurang Mckoy - Last Filed: 03/28/17 19:40> - Present on Arrival Any Indicators Present on Arrival: No History of DVT/PE: No History of Uncontrolled Diabetes: No Urinary Catheter: No History of Decub. Ulcer: No History Surgical Site Infection Following: None - Disposition Have Diagnosis and Disposition been Completed?: Yes Disposition Time: 20:49 Patient Plan: ICU <Roberto Mejia - Last Filed: 03/28/17 20:50> - Disposition Diagnosis: Dehydration, Hypotension, Abdominal pain, Vomiting, Altered mental status Disposition: HOSPITALIZED Patient Problems: Current Active Problems Problem Status Onset Abdominal pain Acute Altered mental status Acute Dehydration Acute Hypotension Acute Vomiting Acute Condition: CRITICAL
[2017-03-28 16:55] LABS: BASO # 0.29 K/mm3 (0.0-2.0); BASO % 2.7 % (0.0-3.0); EOS # 0.5 (0.0-0.7); EOS % 5.1 % (1.5-5.0); GRAN # 3.44 (1.4-6.5); GRAN % 32.6 % (50.0-68.0); HEMOGLOBIN 11.5 gm/dL (14.0-18.0); LYMPH # 5.8 (1.2-3.4); LYMPH % 54.8 % (22.0-35.0); MEAN CELL VOLUME 88.7 fL (80.0-105.0); MEAN CORPUSCULAR HEMOGLOBIN 30.3 pg (25.0-35.0); MEAN CORPUSCULAR HGB CONC 34.1 g/dl (31.0-37.0); MEAN PLATELET VOLUME 10.4 fl (7.0-11.0); MONO # 0.5 (0.1-0.6); MONO % 4.8 % (1.0-6.0); PLATELET COUNT 346 10^3/uL (120.0-450.0); RED CELL DISTRIBUTION WIDTH 13.4 % (11.5-14.5); WHITE BLOOD COUNT 10.6 10^3/ul (4.5-11.0)
[2017-03-28 16:56] LABS: VENOUS BLOOD GAS BASE EXCESS -1.5 mmol/L (0.0-2.0); VENOUS BLOOD GAS PO2 74 mm/Hg (30-55); VENOUS BLOOD PH 7.37 (7.32-7.43)
[2017-03-28 17:04] LABS: ALBUMIN 3.2 g/dL (3.0-4.8); ALT/SGPT 11 U/L (7-56); AMYLASE 84 U/L (35-125); AST/SGOT 23 U/L (15-59); BLOOD UREA NITROGEN 21 mg/dL (7-21); CALCIUM 9.2 mg/dL (8.4-10.5); GFR AFRICAN-AMERICAN > 60; GFR NON-AFRICAN AMERICAN 58; LIPASE 48 U/L (23-300)
[2017-03-28 17:07] LABS: INR 1.06 (0.93-1.08); PARTIAL THROMBOPLASTIN TIME 27.5 Seconds (23.7-30.8); PROTHROMBIN TIME 11.5 Seconds (9.9-11.8)
[2017-03-28] MEDS ORDERED: Piperacill/Tazo 4.5gm in NS 4.5 GM/100 ML BAG IVPB STA (17:37)
--- NOTE | 2017-03-28 17:48 | CT ---
PROCEDURE: CT HEAD WITHOUT CONTRAST. HISTORY: Altered mental status h/o dementia h/o cva COMPARISON: 11/21/2016 TECHNIQUE: Axial computed tomography images were obtained through the head/brain without intravenous contrast. Radiation dose: Total exam DLP = 774.23 mGy-cm. This CT exam was performed using one or more of the following dose reduction techniques: Automated exposure control, adjustment of the mA and/or kV according to patient size, and/or use of iterative reconstruction technique. FINDINGS: HEMORRHAGE: No intracranial hemorrhage. BRAIN: No mass effect or edema. Cortical atrophy, periventricular small vessel disease old lacune or infarcts, right cerebellar infarct. Evidence of old brainstem infarction on the right. VENTRICLES: Unremarkable. No hydrocephalus. CALVARIUM: Unremarkable. PARANASAL SINUSES: Unremarkable as visualized. No significant inflammatory changes. MASTOID AIR CELLS: Unremarkable as visualized. No inflammatory changes. OTHER FINDINGS: None. IMPRESSION: No acute intracranial abnormalities. No significant findings to account for the clinical presentation. No significant interval change compared to the prior examination(s).
[2017-03-28 17:55] LABS: TROPONIN I < 0.01 ng/mL
[2017-03-28] MEDS ORDERED: Lidocaine 1% Inj (20ml) ONE (18:36)
[2017-03-28] MEDS ORDERED: NOREPINEPHRINE BIT/0.9 % NACL 4 MG/250 ML BAG IV ONE (19:10)
[2017-03-28] MEDS: NOREPINEPHRINE BIT/0.9 % NACL 4 MG/250 ML BAG IV PRN (19:24)
--- NOTE | 2017-03-28 20:01 | CT ---
EXAM: CT Abdomen and Pelvis Without Intravenous Contrast CLINICAL HISTORY: The patient age is 81 years old and is male; Pain; Abdominal pain; Generalized; Additional info: Abd pain R/O diverticulitis/osis Facility exam id and description: Ct [id number] abd pelvis w/o po or iv cont TECHNIQUE: Axial computed tomography images of the abdomen and pelvis without intravenous contrast. This CT exam was performed using one or more of the following dose reduction techniques: automated exposure control, adjustment of the mA and/or kV according to patient size, and/or use of iterative reconstruction technique. Coronal and sagittal reformatted images were created and reviewed. EXAM DATE/TIME: 03/28/2017 4:28 PM COMPARISON: CT - ABD PELVIS W/O PO OR IV CONT 11/04/2016 6:01:33 PM FINDINGS: Lower thorax: Small bilateral pleural effusions are identified, right side greater than left. Atelectatic changes are visualized at the lung bases. There is coronary artery calcification. Fluid is calcifications are visualized at the lung bases. ABDOMEN: Liver: There is heterogeneous density of the liver, without a well-defined mass. Gallbladder and bile ducts: A small calcified gallstone is visualized. Pancreas: Atrophic changes are noted of the pancreas. Spleen: No splenomegaly. Adrenals: No mass. Kidneys and ureters: Nonspecific perinephric stranding is identified bilaterally. There is no hydronephrosis bilaterally. Stomach and bowel: There is fecal distention of the rectum with rectal wall thickening. This wall thickening may be inflammatory or malignant in etiology. The degree of wall thickening has progressed compared to the prior study. There is fecal distention of the sigmoid colon as well, but to a lesser degree. Fecal distention was visualized on the prior study as well. No significant diverticular disease of the colon. Appendix: The appendix is not visualized. PELVIS: Bladder: There is mild enlargement of the prostate gland with elevation of the bladder floor. Bands of hyperdensity are seen within the dependent portion of the bladder, likely representing bladder calculi. This has mildly progressed. Within the right posterior bladder, this measures 1.9 x 0.2 cm. Reproductive: See above. Subperitoneal space: There is mild stranding of the posterior perirectal fat, similar to the prior study. ABDOMEN and PELVIS: Intraperitoneal space: No free air. Bones/joints: There is a stable compression fracture of the T12 vertebral body. Hypertrophic degenerative changes are noted within the spine. Osteopenia. A stable small nonspecific sclerotic lesion is identified within the right iliac bone. Soft tissues: See above. Vasculature: There is atherosclerotic calcification of the abdominal aorta. No abdominal aortic aneurysm. Lymph nodes: No enlarged lymph nodes. IMPRESSION: 1. There is fecal distention of the rectum with rectal wall thickening. This wall thickening may be inflammatory or malignant in etiology. The degree of wall thickening has progressed compared to the prior study. There is fecal distention of the sigmoid colon as well, but to a lesser degree. Fecal distention was visualized on the prior study as well. Due to progression of rectal wall thickening, colonoscopy is recommended. 2. There is mild stranding of the posterior perirectal fat, similar to the prior study. Stercoral ulceration cannot be excluded. 3. There is mild enlargement of the prostate gland with elevation of the bladder floor. 4. Small bilateral pleural effusions are identified, right side greater than left. Atelectatic changes are visualized at the lung bases. 5. Cholelithiasis. 6. Additional CT findings described above.
[2017-03-28 21:35] LABS: VENOUS BLOOD GAS PO2 33 mm/Hg (30-55); VENOUS BLOOD PH 7.21 (7.32-7.43)
--- NOTE | 2017-03-28 21:41 | CP.PCM.CON ---
<DYLON RAMOS - Last Filed: 03/29/17 05:09> History of Present Illness - History of Present Illness History of Present Illness: 81 year old male PMH dementia s/p stroke 2004, presented to the [facility] ED on 2016. With complaints of an episode of vomiting while laying as per family members. Patient also complained of abdominal pain in the ED. According to history provided by family members, patient is disabled due to previous episodes of stroke and his taken care of by his . Patient is known to have episodes of orthostasis when being elevated after laying down. Full HPI is limited due to patients incapacity to communicate well in conjunction with dementia. PMD: Dr. 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 absent: Acrocyanosis, Chest Pain, Edema - Respiratory Respiratory: absent: Cough, Dyspnea, Wheezing - Gastrointestinal Gastrointestinal: Abdominal Pain, Constipation, Diarrhea. absent: Bloating - Genitourinary Genitourinary: Change in Urinary Stream, Other. absent: Hx /Renal Surgery - Integumentary Integumentary: absent: Bleeding Lesions, Change in Nails - Neurological Neurological: Confusion Past Patient History - Infectious Disease Hx of Infectious Diseases: None - Tetanus Immunizations Tetanus Immunization: Unknown - Past Social History Smoking Status: Former Smoker - CARDIAC Hx Cardiac Disorders: Yes Hx Hypertension: Yes - PULMONARY Hx Respiratory Disorders: No - NEUROLOGICAL HX Cerebrovascular Accident: Yes (2014) Hx Dementia: Yes - HEENT Hx Macular Degeneration: Yes Other/Comment: egd for removal of foreign body 06/08/14 - RENAL Hx Chronic Kidney Disease: No - ENDOCRINE/METABOLIC Hx Diabetes Mellitus Type 2: Yes - HEMATOLOGICAL/ONCOLOGICAL Hx Blood Disorders: No - INTEGUMENTARY Other/Comment: reddened sacrum/ long curled thick toenails both feet/ unable to do proper skin assesment due to agitation - MUSCULOSKELETAL/RHEUMATOLOGICAL Hx Falls: Yes (last one couple weeks ago) Hx Unsteady Gait: Yes (w/ch can't walk/stand) - GASTROINTESTINAL Hx Gastrointestinal Disorders: No Other/Comment: egd for removal of foreigh body - GENITOURINARY/GYNECOLOGICAL Hx Incontinence: Yes Other/Comment: too weak to walk to bathroom/frequent falls - PSYCHIATRIC Hx Psychophysiologic Disorder: No Hx Depression: Yes Hx Emotional Abuse: No Hx Physical Abuse: No Hx Substance Use: No Other/Comment: up at night/pushes furniture/ jumps oob/ can become violent - SURGICAL HISTORY Hx Appendectomy: Yes Other/Comment: sebaceous cyst removal - ANESTHESIA Hx Anesthesia Reactions: Yes Hx Malignant Hyperthermia: No Meds Allergies/Adverse Reactions: Allergies Allergy/AdvReac Type Severity Reaction Status Date / Time No Known Allergies Allergy Verified 11/21/16 17:18 - Medications Medications: Current Medications Heparin Sodium (Porcine) (Heparin) 5,000 units SC Q12H OMAR PRN Reason: Protocol NOREPINEPHRINE BIT/0.9 % NACL (Levophed 4 Mg/ 250 Ml Ns Premixed) 4 mg in 250 mls @ 15 mls/hr IV .[id number] PRN; Protocol; 4 MCG/MIN PRN Reason: TITRATE PER MD ORDER Last Admin: 03/28/17 19:24 Dose: 3.8 mls/hr Sodium Chloride (Sodium Chloride 0.9%) 1,000 mls @ 125 mls/hr IV .Q8H [facility] Vancomycin HCl (Vancomycin 1gm) 1 gm in 250 mls @ 167 mls/hr IVPB Q12H OMAR PRN Reason: Protocol Piperacillin Sod/Tazobactam Sod (Zosyn 3.375 In Ns 100ml) 100 mls @ 200 mls/hr IVPB Q6 OMAR PRN Reason: Protocol Stop: 03/29/17 06:29 Morphine Sulfate (Morphine) 2 mg IVP Q4H PRN PRN Reason: Pain, severe (8-10) Ondansetron HCl (Zofran Inj) 4 mg IVP Q6H PRN PRN Reason: Nausea/Vomiting Pantoprazole Sodium (Protonix Inj) 40 mg IVP DAILY [facility] Results - Vital Signs Recent Vital Signs: Last Vital Signs Temp 97 F L 03/28/17 16:22 Pulse 74 03/28/17 20:30 Resp 24 03/28/17 20:30 BP 97/58 L 03/28/17 20:30 Pulse Ox 92 L 03/28/17 20:30 - Labs Result Diagrams: 03/28/17 16:35 03/28/17 16:35 Assessment & Plan - Assessment and Plan (Free Text) Assessment: 81 year old patient with PMH of strokes and dementia with colitis possible being source of shock. Plan: Neuro: patient presented to ED with altered mental status, non-communicative. After fluids and ICU transfer, patient is now communicative. Neuro checks q 4 hours, resuscitation full code in effect. CV: BP remains stable since admission. Vital signs q 1 hour. rn endoscopy. Monitor troponin I q8. Pulmonary: Patient was suspected to have vomited while laying down. Keep head of bed elevated. Aspiration precautions will be continued. Oxygen provided via nasal cannula. GI: Vomiting has resolved since being admitted. Continue with NPO diet. 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 IV heparin started as means of therapy as recommended by Gen Surg as patient might not be stable enough to recover from surgical correction. Gastroenterology also on board. Protonix 40 mg IV ordered for ulcer prophylaxis. Zofran 4 mg q6 hours for nausea. C diff toxin and antigen ordered for possible source of infection. Enema ordered to help reduce constipation and impacted bowels. Renal: Urine culture results pending. Urology: Wong catheter placement unsuccessful, Urology consulted. Endocrine: TSH ordered, results pending. HgbA1c ordered, results pending. ID: Urine cultures ordered. Blood cultures ordered. Stool cultures ordered. C diff toxin and antigen rodered. Type and screen and type and crossmatch ordered in case of need to transfuse. Hematology: Continue to monitor with CBC results. Blood cultures ordered. <Crissy MCCORMACK,Aiden - Last Filed: 03/29/17 07:57> Meds - Medications Medications: Current Medications NOREPINEPHRINE BIT/0.9 % NACL (Levophed 4 Mg/ 250 Ml Ns Premixed) 4 mg in 250 mls @ 15 mls/hr IV .[id number] PRN; Protocol; 4 MCG/MIN PRN Reason: TITRATE PER MD ORDER Last Titration: 03/29/17 07:35 Dose: 4 mcg/min, 15 mls/hr Sodium Chloride (Sodium Chloride 0.9%) 1,000 mls @ 125 mls/hr IV .Q8H [facility] Last Admin: 03/29/17 05:00 Dose: 125 mls/hr Vancomycin HCl (Vancomycin 1gm) 1 gm in 250 mls @ 167 mls/hr IVPB Q12H O[facility] PRN Reason: Protocol Last Admin: 03/28/17 22:00 Dose: 167 mls/hr Piperacillin Sod/Tazobactam Sod (Zosyn 3.375 In Ns 100ml) 100 mls @ 200 mls/hr IVPB Q6 OMAR PRN Reason: Protocol Stop: 04/06/17 00:01 Last Admin: 03/29/17 05:48 Dose: 200 mls/hr Heparin Sodium/Dextrose (Heparin 25,000 Units/250ml In D5w) 25,000 units in 250 mls @ 10.475 mls/hr IV .[id number] PRN; Protocol; 18 UNITS/KG/HR PRN Reason: ADJUST RATE PER PROTOCOL Last Admin: 03/29/17 01:47 Dose: 18 units/kg/hr, 10.475 mls/hr Morphine Sulfate (Morphine) 2 mg IVP Q4H PRN PRN Reason: Pain, severe (8-10) Last Admin: 03/29/17 02:21 Dose: 2 mg Ondansetron HCl (Zofran Inj) 4 mg IVP Q6H PRN PRN Reason: Nausea/Vomiting Pantoprazole Sodium (Protonix Inj) 40 mg IVP DAILY [facility] Quetiapine Fumarate (Seroquel) 12.5 mg PO HS OMAR PRN Reason: Protocol Last Admin: 03/28/17 22:00 Dose: Not Given Results - Vital Signs Recent Vital Signs: Last Vital Signs Temp 98 F 03/29/17 04:00 Pulse 98 H 03/29/17 04:00 Resp 18 03/29/17 04:00 BP 130/65 03/29/17 01:00 Pulse Ox 94 L 03/29/17 04:00 - Labs Result Diagrams: 03/29/17 05:00 03/29/17 05:00 Labs: Laboratory Results - last 24 hr 03/28/17 03/28/17 03/28/17 21:30 21:30 22:43 WBC RBC Hgb Hct MCV MCH MCHC RDW Plt Count MPV Gran % Lymph % (Auto) Preston % (Auto) Eos % (Auto) Baso % (Auto) Gran # Lymph # Preston # Eos # Baso # pO2 33 VBG pH 7.21 L VBG pCO2 44.0 VBG HCO3 17.6 L VBG Total CO2 19.0 L VBG O2 Sat (Calc) 73.2 H VBG Base Excess -10.0 L VBG Potassium 4.0 Sodium 139.0 Chloride 109.0 H Glucose 234 H Lactate 5.2 H* FiO2 21.0 Potassium Carbon Dioxide Anion Gap BUN Creatinine Est GFR ( Amer) Est GFR (Non-Af Amer) Random Glucose Lactic Acid 5.0 H* Calcium Phosphorus Magnesium Total Bilirubin AST ALT Alkaline Phosphatase Total Creatine Kinase 39 Troponin I < 0.01 Total Protein Albumin Globulin Albumin/Globulin Ratio TSH 3rd Generation Venous Blood Potassium 4.0 Urine Color Urine Appearance Urine pH Ur Specific [place] Urine Protein Urine Glucose (UA) Urine Ketones Urine Blood Urine Nitrate Urine Bilirubin Urine Urobilinogen Ur Leukocyte Esterase Urine RBC Urine WBC Ur Epithelial Cells Urine Bacteria 03/29/17 03/29/17 03/29/17 05:00 05:00 05:00 WBC 17.6 H D RBC 4.05 Hgb 12.0 L Hct 35.9 L MCV 88.6 MCH 29.6 MCHC 33.4 RDW 13.8 Plt Count 327 MPV 10.3 Gran % 89.7 H Lymph % (Auto) 6.3 L Preston % (Auto) 3.9 Eos % (Auto) 0.0 L Baso % (Auto) 0.1 Gran # 15.76 H Lymph # 1.1 L Preston # 0.7 H Eos # 0.0 Baso # 0.02 pO2 VBG pH VBG pCO2 VBG HCO3 VBG Total CO2 VBG O2 Sat (Calc) VBG Base Excess VBG Potassium Sodium 142 Chloride 114 H Glucose Lactate FiO2 Potassium 3.6 Carbon Dioxide 18 L Anion Gap 14 BUN 24 H Creatinine 1.1 Est GFR ( Amer) > 60 Est GFR (Non-Af Amer) > 60 Random Glucose 133 H Lactic Acid Calcium 7.8 L Phosphorus 3.0 Magnesium 2.5 H Total Bilirubin 0.8 AST 31 ALT 18 Alkaline Phosphatase 51 Total Creatine Kinase 25 L Troponin I < 0.01 Total Protein 5.0 L Albumin 2.3 L Globulin 2.7 Albumin/Globulin Ratio 0.9 L TSH 3rd Generation 1.4 Venous Blood Potassium Urine Color Urine Appearance Urine pH Ur Specific [place] Urine Protein Urine Glucose (UA) Urine Ketones Urine Blood Urine Nitrate Urine Bilirubin Urine Urobilinogen Ur Leukocyte Esterase Urine RBC Urine WBC Ur Epithelial Cells Urine Bacteria 03/29/17 03/29/17 05:00 06:00 WBC RBC Hgb Hct MCV MCH MCHC RDW Plt Count MPV Gran % Lymph % (Auto) Preston % (Auto) Eos % (Auto) Baso % (Auto) Gran # Lymph # Preston # Eos # Baso # pO2 36 VBG pH 7.24 L VBG pCO2 42.0 VBG HCO3 18.0 L VBG Total CO2 19.3 L VBG O2 Sat (Calc) 71.7 H VBG Base Excess -9.0 L VBG Potassium 3.8 Sodium 138.0 Chloride 114.0 H Glucose 141 H Lactate 4.2 H* FiO2 21.0 Potassium Carbon Dioxide Anion Gap BUN Creatinine Est GFR ( Amer) Est GFR (Non-Af Amer) Random Glucose Lactic Acid Calcium Phosphorus Magnesium Total Bilirubin AST ALT Alkaline Phosphatase Total Creatine Kinase Troponin I Total Protein Albumin Globulin Albumin/Globulin Ratio TSH 3rd Generation Venous Blood Potassium 3.8 Urine Color Dark yellow Urine Appearance Clear Urine pH 6.0 Ur Specific [place] 1.020 Urine Protein 30 H Urine Glucose (UA) Negative Urine Ketones Negative Urine Blood Negative Urine Nitrate Positive H Urine Bilirubin Small H Urine Urobilinogen 4.0 H Ur Leukocyte Esterase Negative Urine RBC 0 - 2 Urine WBC 0 - 2 Ur Epithelial Cells 0 - 2 Urine Bacteria Few Attending/Attestation - Attestation I have personally seen and examined this patient.: Yes I have fully participated in the care of the patient.: Yes I have reviewed all pertinent clinical information: Yes Notes (Text): 03/29/17 07:49 -I agree with the above consult note with the following changes: Patient is a 81 year old man with a history of dementia and CVA who is admitted with with septic shock due to colitis. Since arrival to the ICU overnight, clinically the patient appeared worse, with a rising lactic acid and more tender abdomen. Therefore, a CT-AP with IV contrast was done (since initial CT- AP done in the ED was without contrast). The repeat CT showed rapid progressive bowel dilation and wall thickening compared to the initial CT scan as well as SMA thrombus (with questionable dissection). As a result, general surgery was consulted and they didn't feel that urgent surgical was warranted overnight. The patient was started on Heparin drip after new findings of thrombus noted in CT scan. In addition, the patient is also on Levophed drip (via femoral TLC) and empiric IV antibiotics. Of note, placement of a Wong catheter was unsuccessfully attempted multiple times overnight (including by assembler surgical garment). Therefore, in addition to ID and surgery consults, a urology consult has also been placed. Stool studies and a echo have also been ordered.
[2017-03-28] MEDS: Vancomycin 1gm in NS 250ml 1 GM/250 ML BAG IVPB SCH (22:00)
--- NOTE | 2017-03-28 22:12 | CP.PCM.CON ---
History of Present Illness - History of Present Illness History of Present Illness: SURGERY CONSULT NOTE FOR DR. HERNANDEZ 81M with hx of dementia presents with abdominal pain and vomiting. Patient s called EMS after she saw the patient vomiting over the bed side and she also states patient was not behaving like himself. The pain came on suddenly and he has not had symptoms to this extreme before. Family at bedside, state patient has not been having fevers, chills. Patient has a long history of constipation and his last BM was in the ED. BM was watery diarrhea. Patient soiled himself. Upon arrival to ED patient was hypotensive and not responding to multiple boluses. Right femoral line was placed and Levophed started, bringing patient BP up. Patient transferred to ICU. PMH: Dementia, CVA, (HTN/DM not requiring meds) PSH: Appendectomy, Sebaceous cyst Social: family denies tobacco, alcohol, illicit drugs Allergies: NKDA Past Patient History - Infectious Disease Hx of Infectious Diseases: None - Tetanus Immunizations Tetanus Immunization: Unknown - Past Social History Smoking Status: Former Smoker - CARDIAC Hx Cardiac Disorders: Yes Hx Hypertension: Yes - PULMONARY Hx Respiratory Disorders: No - NEUROLOGICAL HX Cerebrovascular Accident: Yes (2014) Hx Dementia: Yes - HEENT Hx Macular Degeneration: Yes Other/Comment: egd for removal of foreign body 06/08/14 - RENAL Hx Chronic Kidney Disease: No - ENDOCRINE/METABOLIC Hx Diabetes Mellitus Type 2: Yes - HEMATOLOGICAL/ONCOLOGICAL Hx Blood Disorders: No - INTEGUMENTARY Other/Comment: reddened sacrum/ long curled thick toenails both feet/ unable to do proper skin assesment due to agitation - MUSCULOSKELETAL/RHEUMATOLOGICAL Hx Falls: Yes (last one couple weeks ago) Hx Unsteady Gait: Yes (w/ch can't walk/stand) - GASTROINTESTINAL Hx Gastrointestinal Disorders: No Other/Comment: egd for removal of foreigh body - GENITOURINARY/GYNECOLOGICAL Hx Incontinence: Yes Other/Comment: too weak to walk to bathroom/frequent falls - PSYCHIATRIC Hx Psychophysiologic Disorder: No Hx Depression: Yes Hx Emotional Abuse: No Hx Physical Abuse: No Hx Substance Use: No Other/Comment: up at night/pushes furniture/ jumps oob/ can become violent - SURGICAL HISTORY Hx Appendectomy: Yes Other/Comment: sebaceous cyst removal - ANESTHESIA Hx Anesthesia Reactions: Yes Hx Malignant Hyperthermia: No Meds Allergies/Adverse Reactions: Allergies Allergy/AdvReac Type Severity Reaction Status Date / Time No Known Allergies Allergy Verified 11/21/16 17:18 - Medications Medications: Current Medications Heparin Sodium (Porcine) (Heparin) 5,000 units SC Q12H OMAR PRN Reason: Protocol NOREPINEPHRINE BIT/0.9 % NACL (Levophed 4 Mg/ 250 Ml Ns Premixed) 4 mg in 250 mls @ 15 mls/hr IV .[id number] PRN; Protocol; 4 MCG/MIN PRN Reason: TITRATE PER MD ORDER Last Admin: 03/28/17 19:24 Dose: 3.8 mls/hr Sodium Chloride (Sodium Chloride 0.9%) 1,000 mls @ 125 mls/hr IV .Q8H [facility] Vancomycin HCl (Vancomycin 1gm) 1 gm in 250 mls @ 167 mls/hr IVPB Q12H OMAR PRN Reason: Protocol Piperacillin Sod/Tazobactam Sod (Zosyn 3.375 In Ns 100ml) 100 mls @ 200 mls/hr IVPB Q6 OMAR PRN Reason: Protocol Stop: 03/29/17 06:29 Morphine Sulfate (Morphine) 2 mg IVP Q4H PRN PRN Reason: Pain, severe (8-10) Last Admin: 03/28/17 21:00 Dose: 2 mg Ondansetron HCl (Zofran Inj) 4 mg IVP Q6H PRN PRN Reason: Nausea/Vomiting Pantoprazole Sodium (Protonix Inj) 40 mg IVP DAILY [facility] Quetiapine Fumarate (Seroquel) 12.5 mg PO HS OMAR PRN Reason: Protocol Physical Exam - Constitutional Appears: Other (uncomfortable) - Head Exam Head Exam: ATRAUMATIC - Eye Exam Eye Exam: EOMI, PERRL - ENT Exam ENT Exam: Mucous Membranes Moist - Respiratory Exam Respiratory Exam: Clear to Auscultation Bilateral, NORMAL BREATHING PATTERN - Cardiovascular Exam Cardiovascular Exam: REGULAR RHYTHM, +S1, +S2 - GI/Abdominal Exam GI & Abdominal Exam: Firm, Guarding, Rigid, Tenderness (severe diffused tenderness). absent: Distended, Soft - Rectal Exam Additional comments: patient leaking liquid stool from rectum - Extremities Exam Extremities exam: Negative for: pedal edema, tenderness - Neurological Exam Neurological exam: Alert, Oriented x3 - Psychiatric Exam Psychiatric exam: Normal Affect, Normal Mood - Skin Skin Exam: Dry, Intact, Normal Color, Warm Results - Vital Signs Recent Vital Signs: Last Vital Signs Temp 97 F L 03/28/17 16:22 Pulse 74 03/28/17 21:30 Resp 24 03/28/17 21:30 BP 90/54 L 03/28/17 21:30 Pulse Ox 94 L 03/28/17 21:30 - Labs Result Diagrams: 03/28/17 16:35 03/28/17 16:35 Labs: Laboratory Results - last 24 hr 03/28/17 03/28/17 21:30 21:30 pO2 33 VBG pH 7.21 L VBG pCO2 44.0 VBG HCO3 17.6 L VBG Total CO2 19.0 L VBG O2 Sat (Calc) 73.2 H VBG Base Excess -10.0 L VBG Potassium 4.0 Sodium 139.0 Chloride 109.0 H Glucose 234 H Lactate 5.2 H* FiO2 21.0 Lactic Acid 5.0 H* Venous Blood Potassium 4.0 Assessment & Plan - Assessment and Plan (Free Text) Assessment: 81M with abdominal pain 2/2 severe fecal distension of the rectum and distal colon CT: fecal distention of the rectum/ descending/sigmoid colon, rectal wall thickening progressed since prior image, mild debby-rectal fat stranding Repeat CT w/ IV: rapid progression of bowel wall thickening in descending colon. Thrombus of RAINA severe stenosis, thrombus vs dissection of SMA Plan: - NPO, IVF - Pain control, enemas - Currently on levophed - Serial abdominal exams - Patient started on Heparin drip - CBC/CMP/Coags/VBG repeat in couple hours. Discussed with Dr. Easton Turner, PGY2
[2017-03-28] MEDS: Sodium Chloride 0.9% 1,000 ML IV SCH (22:27)
[2017-03-28] MEDS ORDERED: Iohexol 350 MG/100 ML VIAL ONE (23:18)
[2017-03-28 23:21] LABS: TROPONIN I < 0.01 ng/mL
--- NOTE | 2017-03-29 00:21 | CT ---
EXAM: CT Abdomen and Pelvis With Intravenous Contrast CLINICAL HISTORY: The patient age is 81 years old and is male; Pain; Abdominal pain; Generalized; Additional info: Severe abd pain, rigid Facility exam id and description: Ct abdpelciv abd pelvis iv contrast only TECHNIQUE: Axial computed tomography images of the abdomen and pelvis with intravenous contrast. This CT exam was performed using one or more of the following dose reduction techniques: automated exposure control, adjustment of the mA and/or kV according to patient size, and/or use of iterative reconstruction technique. CONTRAST: 100 mL of omni 350 administered intravenously. EXAM DATE/TIME: 03/28/2017 10:46 PM COMPARISON: CT - ABD PELVIS W/O PO OR IV CONT 03/28/2017 5:25:06 PM FINDINGS: Lower thorax: Small bilateral pleural effusions are identified, right side greater than left. Atelectatic changes are visualized at the lung bases. There is coronary artery calcification. ABDOMEN: Liver: Periportal hypodensity is visualized, consistent with periportal edema. Gallbladder and bile ducts: A small gallstone is visualized. Pancreas: Atrophic changes are noted of the pancreas. Spleen: Multiple hypodense lesions are identified within the spleen. The largest measures 1.0 x 1.0 cm. The differential for these findings includes both benign and malignant etiologies. Adrenals: No mass. Kidneys and ureters: A few small hypodense probable left renal cysts are visualized. There is no hydronephrosis bilaterally. Nonspecific perinephric changes identified bilaterally. Stomach and bowel: There is stable fecal distention of the rectum with rectal wall thickening. This wall thickening may be inflammatory or malignant in etiology. There is fecal distention of the sigmoid colon as well, but to a lesser degree. Pericolonic stranding and fluid are visualized adjacent to the sigmoid colon, which is a progression compared to prior study. There is progressive wall thickening of the sigmoid colon as well, suggestive of colitis. These findings may be infectious, inflammatory or ischemic in etiology. There is significant wall thickening of the antrum of the stomach and proximal duodenum, suggestive of gastroenteritis. Moderate fecal material is visualized within the remaining colon. Appendix: The appendix is not visualized. PELVIS: Bladder: There are small foci of hyperdensity again visualized within the bladder, consistent with bladder stones. The prostate is mildly enlarged causing elevation of the bladder floor. Reproductive: See above. Subperitoneal space: There is mild stranding of the posterior perirectal fat, similar to the prior study. Stercoral ulceration cannot be excluded. ABDOMEN and PELVIS: Intraperitoneal space: There is a hypodense collection of fluid within the right anterior pelvis measuring 3.7 x 2.8 cm. This may be postoperative or infectious in etiology. Bones/joints: There is a stable compression fracture of the T12 vertebral body. Hypertrophic degenerative changes are noted within the spine. Osteopenia. A stable small nonspecific sclerotic lesion is identified within the right iliac bone. Soft tissues: See above. Vasculature: Atherosclerotic changes are visualized. No abdominal aortic aneurysm. Lymph nodes: No enlarged lymph nodes. Tubes, lines and devices: A central venous catheter is identified within the right groin, with the tip within the right iliac vein. IMPRESSION: 1. There is stable fecal distention of the rectum with rectal wall thickening. There is fecal distention of the sigmoid colon as well, but to a lesser degree. 2. Pericolonic stranding and fluid are visualized adjacent to the sigmoid colon, which is a progression compared to prior study. There is progressive wall thickening of the sigmoid colon as well, suggestive of colitis. These findings may be infectious, inflammatory or ischemic in etiology. 3. There is mild stranding of the posterior perirectal fat, similar to the prior study. Stercoral ulceration cannot be excluded. 4. There is a hypodense collection of fluid within the right anterior pelvis measuring 3.7 x 2.8 cm. This may be postoperative or infectious in etiology. 5. Periportal edema is visualized within the liver. 6. There is significant wall thickening of the antrum of the stomach and proximal duodenum, suggestive of gastroenteritis. 7. Multiple hypodense lesions are identified within the spleen. The differential for these findings includes both benign and malignant etiologies. 8. There are small bladder stones again visualized. 9. The prostate is mildly enlarged causing elevation of the bladder floor. 10. Additional CT findings described above.
[2017-03-29] MEDS: Piperacillin/Tazobact 3.375 gm 100 ML IVPB SCH ×5 (01:00→23:20)
[2017-03-29] MEDS ORDERED: Sodium Bicarbonate (8.4%) 50 Meq Syringe IVP ONE (01:18)
[2017-03-29] MEDS: Heparin 25,000units in D5W 25,000 UNITS/250 ML BAG IV PRN (01:47)
[2017-03-29] MEDS: Morphine 2 mg/ml ISec IVP PRN ×3 (02:21→18:56)
[2017-03-29 02:24] VITALS: BMI 17.5
[2017-03-29] MEDS: Sodium Chloride 0.9% 1,000 ML IV SCH ×2 (05:00→16:24)
[2017-03-29 05:50] LABS: BASO # 0.02 K/mm3 (0.0-2.0); BASO % 0.1 % (0.0-3.0); GRAN # 15.76 (1.4-6.5); GRAN % 89.7 % (50.0-68.0); LYMPH # 1.1 (1.2-3.4); LYMPH % 6.3 % (22.0-35.0); MEAN CELL VOLUME 88.6 fL (80.0-105.0); MEAN CORPUSCULAR HEMOGLOBIN 29.6 pg (25.0-35.0); MEAN CORPUSCULAR HGB CONC 33.4 g/dl (31.0-37.0); MEAN PLATELET VOLUME 10.3 fl (7.0-11.0); MONO # 0.7 (0.1-0.6); MONO % 3.9 % (1.0-6.0); PLATELET COUNT 327 10^3/uL (120.0-450.0); RBC 4.05 10^6/uL (3.5-6.1); RED CELL DISTRIBUTION WIDTH 13.8 % (11.5-14.5); WHITE BLOOD COUNT 17.6 10^3/ul (4.5-11.0)
[2017-03-29 06:01] LABS: VENOUS BLOOD GAS PO2 36 mm/Hg (30-55); VENOUS BLOOD PH 7.24 (7.32-7.43)
[2017-03-29 06:28] LABS: ALB/GLOB RATIO 0.9 (1.1-1.8); ALBUMIN 2.3 g/dL (3.0-4.8); ALT/SGPT 18 U/L (7-56); AST/SGOT 31 U/L (15-59); BLOOD UREA NITROGEN 24 mg/dL (7-21); CALCIUM 7.8 mg/dL (8.4-10.5); GFR AFRICAN-AMERICAN > 60; GFR NON-AFRICAN AMERICAN > 60; MAGNESIUM 2.5 mg/dL (1.7-2.2)
[2017-03-29 06:43] LABS: TROPONIN I < 0.01 ng/mL
[2017-03-29 07:22] LABS: URINE BILIRUBIN SMALL (NEGATIVE); URINE BLOOD NEGATIVE (NEGATIVE); URINE GLUCOSE (UA) NEGATIVE (NEGATIVE); URINE LEUKOCYTE ESTERASE NEGATIVE Leu/uL (NEGATIVE); URINE NITRATE POSITIVE (NEGATIVE); URINE PROTEIN 30 mg/dL (<30 mg/dL)
[2017-03-29 07:25] LABS: URINE APPEARANCE CLEAR (CLEAR); URINE COLOR DARK YELLOW (YELLOW)
[2017-03-29 07:37] LABS: URINE BACTERIA FEW (NEG); URINE EPITHELIAL CELLS 0 - 2 /hpf (0-5); URINE RBC 0 - 2 /hpf (0-2); URINE WBC 0 - 2 /hpf (0-6)
--- NOTE | 2017-03-29 07:51 | RAD ---
HISTORY: s/p central line COMPARISON: 03/28/2017 FINDINGS: LUNGS: No consolidation seen. On the current study 2 cm medial right infrahilar nodular density is seen. This is not seen on the very recent exam - reason for its non appearance is unclear also not noted on a 06/29/2016 study. Low-normal lung volumes Chronic interstitial lung marking prominence. Left infrahilar peribronchial thickening increased nonspecific peribronchial thickening/ inflammatory changes inferred. PLEURA: No significant pleural effusion identified, no pneumothorax apparent. CARDIOVASCULAR: Minimal cardiomegaly.Possible superimposed minimal pulmonary venous congestion aortic knob atherosclerotic vascular calcification OSSEOUS STRUCTURES: No significant abnormalities. VISUALIZED UPPER ABDOMEN: Normal. OTHER FINDINGS: None. IMPRESSION: 2 cm medial right infrahilar nodular opacity not seen on the same day earlier exam and not appreciated on and 2016. Significance (if any) and etiology indeterminate -consider CT chest noncontrast. Left infrahilar peribronchial thickening/inflammatory changes - mild Chronic interstitial lung disease. Next number possible minimal pulmonary venous congestion.
[2017-03-29] MEDS: Vancomycin 1gm in NS 250ml 1 GM/250 ML BAG IVPB SCH ×2 (08:01→21:01)
--- NOTE | 2017-03-29 09:00 | RAD ---
HISTORY: gi bleed COMPARISON: 02/28/2017 patient's subsequent 02/26/2017 study at 8 o (after this 4:37 p.m. exam) is also available FINDINGS: LUNGS: The nodular opacity projecting of the left lung apex is is most consistent with summation effects ; not seen on the very recent02/28/2017 or the subsequent 02/26/2017 study at 8 o'clock p.m - available now. The patchy areas of hyperlucency probably relating to emphysematous changes is renoted the mild interstitial lung marking prominence, probable mild chronic interstitial lung disease status, is also similar-appearing . PLEURA: No significant pleural effusion identified, no pneumothorax apparent. CARDIOVASCULAR: Normal heart size .Atherosclerotic vascular calcifications and thoracic aortic. Unfolding OSSEOUS STRUCTURES: Generalized osteopenia. Rightward convexity lumbar spine -more conspicuous on this exam. Thoracic spondylosis. Bilateral shoulder arthrosis VISUALIZED UPPER ABDOMEN: Normal. OTHER FINDINGS: None. IMPRESSION: No interval pathology noted.
--- NOTE | 2017-03-29 09:21 | CP.PCM.HP ---
History of Present Illness - History of Present Illness History of Present Illness: 81 year old male Hx of dementia- Alzh type s/p stroke with episode of vomiting and abdominal pain in the ED. Pt not able to give hx due to underlying condition. He is awake but not able to give much of hx. Pt is in the ICU due to hypotension. Present on Admission - Present on Admission Any Indicators Present on Admission: No Review of Systems - Review of Systems Systems not reviewed;Unavailable: Altered Mental Status (unable to get ROS from pt) Past Patient History - Infectious Disease Hx of Infectious Diseases: None - Tetanus Immunizations Tetanus Immunization: Unknown - Past Social History Smoking Status: Former Smoker - CARDIAC Hx Cardiac Disorders: Yes Hx Hypertension: Yes - PULMONARY Hx Respiratory Disorders: No - NEUROLOGICAL HX Cerebrovascular Accident: Yes (2014) Hx Dementia: Yes - HEENT Hx Macular Degeneration: Yes Other/Comment: egd for removal of foreign body 06/08/14 - RENAL Hx Chronic Kidney Disease: No - ENDOCRINE/METABOLIC Hx Diabetes Mellitus Type 2: Yes - HEMATOLOGICAL/ONCOLOGICAL Hx Blood Disorders: No - INTEGUMENTARY Other/Comment: reddened sacrum/ long curled thick toenails both feet/ unable to do proper skin assesment due to agitation - MUSCULOSKELETAL/RHEUMATOLOGICAL Hx Falls: Yes (last one couple weeks ago) Hx Unsteady Gait: Yes (w/ch can't walk/stand) - GASTROINTESTINAL Hx Gastrointestinal Disorders: No Other/Comment: egd for removal of foreigh body - GENITOURINARY/GYNECOLOGICAL Hx Incontinence: Yes Other/Comment: too weak to walk to bathroom/frequent falls - PSYCHIATRIC Hx Psychophysiologic Disorder: No Hx Depression: Yes Hx Emotional Abuse: No Hx Physical Abuse: No Hx Substance Use: No Other/Comment: up at night/pushes furniture/ jumps oob/ can become violent - SURGICAL HISTORY Hx Appendectomy: Yes Other/Comment: sebaceous cyst removal - ANESTHESIA Hx Anesthesia Reactions: Yes Hx Malignant Hyperthermia: No Meds Allergies/Adverse Reactions: Allergies Allergy/AdvReac Type Severity Reaction Status Date / Time No Known Allergies Allergy Verified 11/21/16 17:18 Physical Exam - Constitutional Appears: Well - Head Exam Head Exam: ATRAUMATIC - Eye Exam Eye Exam: EOMI, Normal appearance, PERRL Pupil Exam: NORMAL ACCOMODATION, PERRL - ENT Exam ENT Exam: Mucous Membranes Dry, Normal Exam - Neck Exam Neck exam: Positive for: Normal Inspection - Respiratory Exam Respiratory Exam: Clear to Auscultation Bilateral, NORMAL BREATHING PATTERN. absent: Rales, Rhonchi, Wheezes - Cardiovascular Exam Cardiovascular Exam: REGULAR RHYTHM, RRR, +S1, +S2 - GI/Abdominal Exam GI & Abdominal Exam: Normal Bowel Sounds, Soft. absent: Pulsatile Mass, Rebound , Tenderness - Neurological Exam Neurological exam: Altered, CN II-XII Intact, Reflexes Normal - Skin Skin Exam: Dry, Normal Color, Warm Results - Vital Signs Recent Vital Signs: Last Vital Signs Temp 98 F 03/29/17 04:00 Pulse 98 H 03/29/17 04:00 Resp 18 03/29/17 04:00 BP 130/65 03/29/17 01:00 Pulse Ox 94 L 03/29/17 04:00 - Labs Result Diagrams: 03/29/17 05:00 03/29/17 05:00 Labs: Laboratory Results - last 24 hr 03/28/17 03/28/17 03/28/17 21:30 21:30 22:43 WBC RBC Hgb Hct MCV MCH MCHC RDW Plt Count MPV Gran % Lymph % (Auto) Jew[place] % (Auto) Eos % (Auto) Baso % (Auto) Gran # Lymph # Jewell # Eos # Baso # pO2 33 VBG pH 7.21 L VBG pCO2 44.0 VBG HCO3 17.6 L VBG Total CO2 19.0 L VBG O2 Sat (Calc) 73.2 H VBG Base Excess -10.0 L VBG Potassium 4.0 Sodium 139.0 Chloride 109.0 H Glucose 234 H Lactate 5.2 H* FiO2 21.0 Potassium Carbon Dioxide Anion Gap BUN Creatinine Est GFR ( Amer) Est GFR (Non-Af Amer) Random Glucose Lactic Acid 5.0 H* Calcium Phosphorus Magnesium Total Bilirubin AST ALT Alkaline Phosphatase Total Creatine Kinase 39 Troponin I < 0.01 Total Protein Albumin Globulin Albumin/Globulin Ratio TSH 3rd Generation Venous Blood Potassium 4.0 Urine Color Urine Appearance Urine pH Ur Specific [place] Urine Protein Urine Glucose (UA) Urine Ketones Urine Blood Urine Nitrate Urine Bilirubin Urine Urobilinogen Ur Leukocyte Esterase Urine RBC Urine WBC Ur Epithelial Cells Urine Bacteria 03/29/17 03/29/17 03/29/17 05:00 05:00 05:00 WBC 17.6 H D RBC 4.05 Hgb 12.0 L Hct 35.9 L MCV 88.6 MCH 29.6 MCHC 33.4 RDW 13.8 Plt Count 327 MPV 10.3 Gran % 89.7 H Lymph % (Auto) 6.3 L Jewell % (Auto) 3.9 Eos % (Auto) 0.0 L Baso % (Auto) 0.1 Gran # 15.76 H Lymph # 1.1 L Jewell # 0.7 H Eos # 0.0 Baso # 0.02 pO2 VBG pH VBG pCO2 VBG HCO3 VBG Total CO2 VBG O2 Sat (Calc) VBG Base Excess VBG Potassium Sodium 142 Chloride 114 H Glucose Lactate FiO2 Potassium 3.6 Carbon Dioxide 18 L Anion Gap 14 BUN 24 H Creatinine 1.1 Est GFR ( Amer) > 60 Est GFR (Non-Af Amer) > 60 Random Glucose 133 H Lactic Acid Calcium 7.8 L Phosphorus 3.0 Magnesium 2.5 H Total Bilirubin 0.8 AST 31 ALT 18 Alkaline Phosphatase 51 Total Creatine Kinase 25 L Troponin I < 0.01 Total Protein 5.0 L Albumin 2.3 L Globulin 2.7 Albumin/Globulin Ratio 0.9 L TSH 3rd Generation 1.4 Venous Blood Potassium Urine Color Urine Appearance Urine pH Ur Specific [place] Urine Protein Urine Glucose (UA) Urine Ketones Urine Blood Urine Nitrate Urine Bilirubin Urine Urobilinogen Ur Leukocyte Esterase Urine RBC Urine WBC Ur Epithelial Cells Urine Bacteria 03/29/17 03/29/17 05:00 06:00 WBC RBC Hgb Hct MCV MCH MCHC RDW Plt Count MPV Gran % Lymph % (Auto) Jewell % (Auto) Eos % (Auto) Baso % (Auto) Gran # Lymph # [place] # Eos # Baso # pO2 36 VBG pH 7.24 L VBG pCO2 42.0 VBG HCO3 18.0 L VBG Total CO2 19.3 L VBG O2 Sat (Calc) 71.7 H VBG Base Excess -9.0 L VBG Potassium 3.8 Sodium 138.0 Chloride 114.0 H Glucose 141 H Lactate 4.2 H* FiO2 21.0 Potassium Carbon Dioxide Anion Gap BUN Creatinine Est GFR ( Amer) Est GFR (Non-Af Amer) Random Glucose Lactic Acid Calcium Phosphorus Magnesium Total Bilirubin AST ALT Alkaline Phosphatase Total Creatine Kinase Troponin I Total Protein Albumin Globulin Albumin/Globulin Ratio TSH 3rd Generation Venous Blood Potassium 3.8 Urine Color Dark yellow Urine Appearance Clear Urine pH 6.0 Ur Specific [place] 1.020 Urine Protein 30 H Urine Glucose (UA) Negative Urine Ketones Negative Urine Blood Negative Urine Nitrate Positive H Urine Bilirubin Small H Urine Urobilinogen 4.0 H Ur Leukocyte Esterase Negative Urine RBC 0 - 2 Urine WBC 0 - 2 Ur Epithelial Cells 0 - 2 Urine Bacteria Few Assessment & Plan - Assessment and Plan (Free Text) Assessment: Septic Shock Dementia- ALzh Delerium Constipation Spleen lesions Fluid collection in R pelvis Plan: Pt's hx reviewed from chart and spoke to ER. Admit to ICU to septic shock. CT of Abd/Pelvis reviewed. IV Abs. Bcx and Ucx. Hold Seroquel. GI and ID evaluation. follow labs. Meds reviewed. - Date & Time Date: 03/29/17 Time: 09:20
[2017-03-29] MEDS: NOREPINEPHRINE BIT/0.9 % NACL 4 MG/250 ML BAG IV PRN (09:43)
[2017-03-29 09:51] LABS: VENOUS BLOOD GAS PO2 107 mm/Hg (30-55); VENOUS BLOOD PH 7.23 (7.32-7.43)
[2017-03-29 09:52] LABS: VENOUS BLOOD GAS BASE EXCESS -10.9 mmol/L (0.0-2.0)
[2017-03-29 10:03] LABS: INR 1.35 (0.93-1.08); PROTHROMBIN TIME 14.6 Seconds (9.9-11.8)
[2017-03-29 10:05] LABS: PARTIAL THROMBOPLASTIN TIME > 180.0 Seconds (23.7-30.8)
--- NOTE | 2017-03-29 10:10 | CP.PCM.CON ---
<Caesar Ladd - Last Filed: 03/29/17 12:24> History of Present Illness - History of Present Illness History of Present Illness: Holden Ennis is a 81M w/ hx of CVA, dementia, chronic constipation who presented to the ED with complaints of vomiting and abd pain. Pt is demented and could not obtain any information from him. All information was taken from pt 's chart and staff. Pt had a reported bout of emesis x1 with brown emesis, though hgb stable. Initial CT abd/pelv showed significant stool burden and in the rectum and sigmoid with wall thickening. Pt eventually started to become hypotensive with worsening LA and abd exam in the ER. He was started on fluids, abx, and pressors and sent to the ICU for further eval. Pt had another CT abd/ Pelv w/ IV contrast with showed further worsening of bowel wall thickening of the sigmoid and how showed additional findings of gastric, small bowel wall thickening. 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 Pt was started on heparin drip. PMH: Dementia, CVA, Chronic constipation, HTN, DM PSH: Appendectomy, Sebaceous cyst Social: family denies tobacco, alcohol, illicit drugs Allergies: NKDA ROS: Could not obtain due to mental status Past Patient History - Infectious Disease Hx of Infectious Diseases: None - Tetanus Immunizations Tetanus Immunization: Unknown - Past Social History Smoking Status: Former Smoker - CARDIAC Hx Cardiac Disorders: Yes Hx Hypertension: Yes - PULMONARY Hx Respiratory Disorders: No - NEUROLOGICAL HX Cerebrovascular Accident: Yes (2014) Hx Dementia: Yes - HEENT Hx Macular Degeneration: Yes Other/Comment: egd for removal of foreign body 06/08/14 - RENAL Hx Chronic Kidney Disease: No - ENDOCRINE/METABOLIC Hx Diabetes Mellitus Type 2: Yes - HEMATOLOGICAL/ONCOLOGICAL Hx Blood Disorders: No - INTEGUMENTARY Other/Comment: reddened sacrum/ long curled thick toenails both feet/ unable to do proper skin assesment due to agitation - MUSCULOSKELETAL/RHEUMATOLOGICAL Hx Falls: Yes (last one couple weeks ago) Hx Unsteady Gait: Yes (w/ch can't walk/stand) - GASTROINTESTINAL Hx Gastrointestinal Disorders: No Other/Comment: egd for removal of foreigh body - GENITOURINARY/GYNECOLOGICAL Hx Incontinence: Yes Other/Comment: too weak to walk to bathroom/frequent falls - PSYCHIATRIC Hx Psychophysiologic Disorder: No Hx Depression: Yes Hx Emotional Abuse: No Hx Physical Abuse: No Hx Substance Use: No Other/Comment: up at night/pushes furniture/ jumps oob/ can become violent - SURGICAL HISTORY Hx Appendectomy: Yes Other/Comment: sebaceous cyst removal - ANESTHESIA Hx Anesthesia Reactions: Yes Hx Malignant Hyperthermia: No Meds Allergies/Adverse Reactions: Allergies Allergy/AdvReac Type Severity Reaction Status Date / Time No Known Allergies Allergy Verified 11/21/16 17:18 - Medications Medications: Current Medications NOREPINEPHRINE BIT/0.9 % NACL (Levophed 4 Mg/ 250 Ml Ns Premixed) 4 mg in 250 mls @ 15 mls/hr IV .[id number] PRN; Protocol; 4 MCG/MIN PRN Reason: TITRATE PER MD ORDER Last Admin: 03/29/17 09:43 Dose: 3 mcg/min, 11.25 mls/hr Sodium Chloride (Sodium Chloride 0.9%) 1,000 mls @ 125 mls/hr IV .Q8H OMAR Last Admin: 03/29/17 05:00 Dose: 125 mls/hr Vancomycin HCl (Vancomycin 1gm) 1 gm in 250 mls @ 167 mls/hr IVPB Q12H OMAR PRN Reason: Protocol Last Admin: 03/29/17 08:01 Dose: 167 mls/hr Piperacillin Sod/Tazobactam Sod (Zosyn 3.375 In Ns 100ml) 100 mls @ 200 mls/hr IVPB Q6 OMAR PRN Reason: Protocol Stop: 04/06/17 00:01 Last Admin: 03/29/17 05:48 Dose: 200 mls/hr Heparin Sodium/Dextrose (Heparin 25,000 Units/250ml In D5w) 25,000 units in 250 mls @ 10.475 mls/hr IV .[id number] PRN; Protocol; 18 UNITS/KG/HR PRN Reason: ADJUST RATE PER PROTOCOL Last Admin: 03/29/17 01:47 Dose: 18 units/kg/hr, 10.475 mls/hr Morphine Sulfate (Morphine) 2 mg IVP Q4H PRN PRN Reason: Pain, severe (8-10) Last Admin: 03/29/17 02:21 Dose: 2 mg Ondansetron HCl (Zofran Inj) 4 mg IVP Q6H PRN PRN Reason: Nausea/Vomiting Pantoprazole Sodium (Protonix Inj) 40 mg IVP DAILY PENDING SALE TO [facility] Last Admin: 03/29/17 09:13 Dose: 40 mg Quetiapine Fumarate (Seroquel) 12.5 mg PO HS PENDING SALE TO [facility] PRN Reason: Protocol Last Admin: 03/28/17 22:00 Dose: Not Given Physical Exam - Constitutional Appears: In Acute Distress, Confused, Cachectic, Chronically Ill - Head Exam Head Exam: ATRAUMATIC, NORMOCEPHALIC - Eye Exam Eye Exam: Normal appearance - ENT Exam ENT Exam: Mucous Membranes Dry - Respiratory Exam Respiratory Exam: Clear to Auscultation Bilateral, NORMAL BREATHING PATTERN - Cardiovascular Exam Cardiovascular Exam: REGULAR RHYTHM, +S1, +S2. absent: Gallop, Irregular Rhythm , JVD - GI/Abdominal Exam GI & Abdominal Exam: Diminished Bowel Sounds, Soft, Tenderness. absent: Distended, Guarding, Mass, Organomegaly, Rigid - Rectal Exam Additional comments: liquid stool, and impaction, brown/dodge - Extremities Exam Extremities exam: Negative for: joint swelling, pedal edema, tenderness Additional comments: cold ext, dimished dorsal and tibial pulses in both LE - Neurological Exam Additional comments: could not assess - Psychiatric Exam Psychiatric exam: Agitated - Skin Skin Exam: Dry, Intact, Pallor Results - Vital Signs Recent Vital Signs: Last Vital Signs Temp 98 F 03/29/17 04:00 Pulse 98 H 03/29/17 04:00 Resp 18 03/29/17 04:00 BP 130/65 03/29/17 01:00 Pulse Ox 94 L 03/29/17 04:00 - Labs Result Diagrams: 03/29/17 05:00 03/29/17 05:00 Labs: Laboratory Results - last 24 hr 03/28/17 03/28/17 03/28/17 21:30 21:30 22:43 WBC RBC Hgb Hct MCV MCH MCHC RDW Plt Count MPV Gran % Lymph % (Auto) [place] % (Auto) Eos % (Auto) Baso % (Auto) Gran # Lymph # [place] # Eos # Baso # PT INR APTT pO2 33 VBG pH 7.21 L VBG pCO2 44.0 VBG HCO3 17.6 L VBG Total CO2 19.0 L VBG O2 Sat (Calc) 73.2 H VBG Base Excess -10.0 L VBG Potassium 4.0 Sodium 139.0 Chloride 109.0 H Glucose 234 H Lactate 5.2 H* FiO2 21.0 Potassium Carbon Dioxide Anion Gap BUN Creatinine Est GFR ( Amer) Est GFR (Non-Af Amer) Random Glucose Lactic Acid 5.0 H* Calcium Phosphorus Magnesium Total Bilirubin AST ALT Alkaline Phosphatase Total Creatine Kinase 39 Troponin I < 0.01 Total Protein Albumin Globulin Albumin/Globulin Ratio TSH 3rd Generation Venous Blood Potassium 4.0 Urine Color Urine Appearance Urine pH Ur Specific [place] Urine Protein Urine Glucose (UA) Urine Ketones Urine Blood Urine Nitrate Urine Bilirubin Urine Urobilinogen Ur Leukocyte Esterase Urine RBC Urine WBC Ur Epithelial Cells Urine Bacteria 03/29/17 03/29/17 03/29/17 05:00 05:00 05:00 WBC 17.6 H D RBC 4.05 Hgb 12.0 L Hct 35.9 L MCV 88.6 MCH 29.6 MCHC 33.4 RDW 13.8 Plt Count 327 MPV 10.3 Gran % 89.7 H Lymph % (Auto) 6.3 L [place] % (Auto) 3.9 Eos % (Auto) 0.0 L Baso % (Auto) 0.1 Gran # 15.76 H Lymph # 1.1 L [place] # 0.7 H Eos # 0.0 Baso # 0.02 PT INR APTT pO2 VBG pH VBG pCO2 VBG HCO3 VBG Total CO2 VBG O2 Sat (Calc) VBG Base Excess VBG Potassium Sodium 142 Chloride 114 H Glucose Lactate FiO2 Potassium 3.6 Carbon Dioxide 18 L Anion Gap 14 BUN 24 H Creatinine 1.1 Est GFR ( Amer) > 60 Est GFR (Non-Af Amer) > 60 Random Glucose 133 H Lactic Acid Calcium 7.8 L Phosphorus 3.0 Magnesium 2.5 H Total Bilirubin 0.8 AST 31 ALT 18 Alkaline Phosphatase 51 Total Creatine Kinase 25 L Troponin I < 0.01 Total Protein 5.0 L Albumin 2.3 L Globulin 2.7 Albumin/Globulin Ratio 0.9 L TSH 3rd Generation 1.4 Venous Blood Potassium Urine Color Urine Appearance Urine pH Ur Specific [place] Urine Protein Urine Glucose (UA) Urine Ketones Urine Blood Urine Nitrate Urine Bilirubin Urine Urobilinogen Ur Leukocyte Esterase Urine RBC Urine WBC Ur Epithelial Cells Urine Bacteria 03/29/17 03/29/17 03/29/17 05:00 06:00 08:40 WBC RBC Hgb Hct MCV MCH MCHC RDW Plt Count MPV Gran % Lymph % (Auto) [place] % (Auto) Eos % (Auto) Baso % (Auto) Gran # Lymph # [place] # Eos # Baso # PT 14.6 H INR 1.35 H APTT > 180.0 H* pO2 36 VBG pH 7.24 L VBG pCO2 42.0 VBG HCO3 18.0 L VBG Total CO2 19.3 L VBG O2 Sat (Calc) 71.7 H VBG Base Excess -9.0 L VBG Potassium 3.8 Sodium 138.0 Chloride 114.0 H Glucose 141 H Lactate 4.2 H* FiO2 21.0 Potassium Carbon Dioxide Anion Gap BUN Creatinine Est GFR ( Amer) Est GFR (Non-Af Amer) Random Glucose Lactic Acid Calcium Phosphorus Magnesium Total Bilirubin AST ALT Alkaline Phosphatase Total Creatine Kinase Troponin I Total Protein Albumin Globulin Albumin/Globulin Ratio TSH 3rd Generation Venous Blood Potassium 3.8 Urine Color Dark yellow Urine Appearance Clear Urine pH 6.0 Ur Specific [place] 1.020 Urine Protein 30 H Urine Glucose (UA) Negative Urine Ketones Negative Urine Blood Negative Urine Nitrate Positive H Urine Bilirubin Small H Urine Urobilinogen 4.0 H Ur Leukocyte Esterase Negative Urine RBC 0 - 2 Urine WBC 0 - 2 Ur Epithelial Cells 0 - 2 Urine Bacteria Few 03/29/17 09:40 WBC RBC Hgb Hct MCV MCH MCHC RDW Plt Count MPV Gran % Lymph % (Auto) [place] % (Auto) Eos % (Auto) Baso % (Auto) Gran # Lymph # [place] # Eos # Baso # PT INR APTT pO2 107 H VBG pH 7.23 L VBG pCO2 38.0 L VBG HCO3 15.9 L VBG Total CO2 17.1 L VBG O2 Sat (Calc) 98.8 H VBG Base Excess -10.9 L VBG Potassium 4.2 Sodium 141.0 Chloride 119.0 H Glucose 129 H Lactate 4.5 H* FiO2 21.0 Potassium Carbon Dioxide Anion Gap BUN Creatinine Est GFR ( Amer) Est GFR (Non-Af Amer) Random Glucose Lactic Acid Calcium Phosphorus Magnesium Total Bilirubin AST ALT Alkaline Phosphatase Total Creatine Kinase Troponin I Total Protein Albumin Globulin Albumin/Globulin Ratio TSH 3rd Generation Venous Blood Potassium 4.2 Urine Color Urine Appearance Urine pH Ur Specific [place] Urine Protein Urine Glucose (UA) Urine Ketones Urine Blood Urine Nitrate Urine Bilirubin Urine Urobilinogen Ur Leukocyte Esterase Urine RBC Urine WBC Ur Epithelial Cells Urine Bacteria Assessment & Plan - Assessment and Plan (Free Text) Assessment: Holden Ennis is a 81M w/ hx of CVA, Dementia, chronic constipation who presented with abd pain and vomiting. Pt was found to have colitis with DDx including ischemic vs infectious. His CT findings suggest a more ischemic etiology due to RAINA and SMA thrombus w/ dissection. Pt was initially hemodynamicaly unstable and required Levophed. 1. 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 Fecal impaction -continue water enema or fleet until adequate BM -Spoke with house staff about possible disimpaction D/W Dr. Anthony <[facility] Last Filed: 03/29/17 12:47> Meds - Medications Medications: Current Medications NOREPINEPHRINE BIT/0.9 % NACL (Levophed 4 Mg/ 250 Ml Ns Premixed) 4 mg in 250 mls @ 15 mls/hr IV .[id number] PRN; Protocol; 4 MCG/MIN PRN Reason: TITRATE PER MD ORDER Last Admin: 03/29/17 09:43 Dose: 3 mcg/min, 11.25 mls/hr Sodium Chloride (Sodium Chloride 0.9%) 1,000 mls @ 125 mls/hr IV .Q8H OMAR Last Admin: 03/29/17 05:00 Dose: 125 mls/hr Vancomycin HCl (Vancomycin 1gm) 1 gm in 250 mls @ 167 mls/hr IVPB Q12H OMAR PRN Reason: Protocol Last Admin: 03/29/17 08:01 Dose: 167 mls/hr Piperacillin Sod/Tazobactam Sod (Zosyn 3.375 In Ns 100ml) 100 mls @ 200 mls/hr IVPB Q6 OMAR PRN Reason: Protocol Stop: 04/06/17 00:01 Last Admin: 03/29/17 12:12 Dose: 200 mls/hr Heparin Sodium/Dextrose (Heparin 25,000 Units/250ml In D5w) 25,000 units in 250 mls @ 10.475 mls/hr IV .[id number] PRN; Protocol; 18 UNITS/KG/HR PRN Reason: ADJUST RATE PER PROTOCOL Last Titration: 03/29/17 12:13 Dose: 15 units/kg/hr, 8.729 mls/hr Lactated Ringer's (Lactated Ringer's) 1,000 mls @ 999 mls/hr IV .Q1H1M OMAR Last Admin: 03/29/17 10:42 Dose: 999 mls/hr Morphine Sulfate (Morphine) 2 mg IVP Q4H PRN PRN Reason: Pain, severe (8-10) Last Admin: 03/29/17 09:51 Dose: 2 mg Ondansetron HCl (Zofran Inj) 4 mg IVP Q6H PRN PRN Reason: Nausea/Vomiting Pantoprazole Sodium (Protonix Inj) 40 mg IVP DAILY PENDING SALE TO [facility] Last Admin: 03/29/17 09:13 Dose: 40 mg Quetiapine Fumarate (Seroquel) 12.5 mg PO HS OMAR PRN Reason: Protocol Last Admin: 03/28/17 22:00 Dose: Not Given Results - Vital Signs Recent Vital Signs: Last Vital Signs Temp 98 F 03/29/17 04:00 Pulse 103 H 03/29/17 12:10 Resp 20 03/29/17 12:10 BP 115/68 03/29/17 12:00 Pulse Ox 93 L 03/29/17 12:10 - Labs Result Diagrams: 03/29/17 05:00 03/29/17 05:00 Labs: Laboratory Results - last 24 hr 03/28/17 03/28/17 03/28/17 21:30 21:30 22:43 WBC RBC Hgb Hct MCV MCH MCHC RDW Plt Count MPV Gran % Lymph % (Auto) [place] % (Auto) Eos % (Auto) Baso % (Auto) Gran # Lymph # [place] # Eos # Baso # PT INR APTT pO2 33 VBG pH 7.21 L VBG pCO2 44.0 VBG HCO3 17.6 L VBG Total CO2 19.0 L VBG O2 Sat (Calc) 73.2 H VBG Base Excess -10.0 L VBG Potassium 4.0 Sodium 139.0 Chloride 109.0 H Glucose 234 H Lactate 5.2 H* FiO2 21.0 Potassium Carbon Dioxide Anion Gap BUN Creatinine Est GFR ( Amer) Est GFR (Non-Af Amer) POC Glucose (mg/dL) Random Glucose Hemoglobin A1c Lactic Acid 5.0 H* Calcium Phosphorus Magnesium Total Bilirubin AST ALT Alkaline Phosphatase Total Creatine Kinase 39 Troponin I < 0.01 Total Protein Albumin Globulin Albumin/Globulin Ratio TSH 3rd Generation Venous Blood Potassium 4.0 Urine Color Urine Appearance Urine pH Ur Specific [place] Urine Protein Urine Glucose (UA) Urine Ketones Urine Blood Urine Nitrate Urine Bilirubin Urine Urobilinogen Ur Leukocyte Esterase Urine RBC Urine WBC Ur Epithelial Cells Urine Bacteria 03/29/17 03/29/17 03/29/17 05:00 05:00 05:00 WBC 17.6 H D RBC 4.05 Hgb 12.0 L Hct 35.9 L MCV 88.6 MCH 29.6 MCHC 33.4 RDW 13.8 Plt Count 327 MPV 10.3 Gran % 89.7 H Lymph % (Auto) 6.3 L [place] % (Auto) 3.9 Eos % (Auto) 0.0 L Baso % (Auto) 0.1 Gran # 15.76 H Lymph # 1.1 L [place] # 0.7 H Eos # 0.0 Baso # 0.02 PT INR APTT pO2 VBG pH VBG pCO2 VBG HCO3 VBG Total CO2 VBG O2 Sat (Calc) VBG Base Excess VBG Potassium Sodium 142 Chloride 114 H Glucose Lactate FiO2 Potassium 3.6 Carbon Dioxide 18 L Anion Gap 14 BUN 24 H Creatinine 1.1 Est GFR ( Amer) > 60 Est GFR (Non-Af Amer) > 60 POC Glucose (mg/dL) Random Glucose 133 H Hemoglobin A1c Lactic Acid Calcium 7.8 L Phosphorus 3.0 Magnesium 2.5 H Total Bilirubin 0.8 AST 31 ALT 18 Alkaline Phosphatase 51 Total Creatine Kinase 25 L Troponin I < 0.01 Total Protein 5.0 L Albumin 2.3 L Globulin 2.7 Albumin/Globulin Ratio 0.9 L TSH 3rd Generation 1.4 Venous Blood Potassium Urine Color Urine Appearance Urine pH Ur Specific [place] Urine Protein Urine Glucose (UA) Urine Ketones Urine Blood Urine Nitrate Urine Bilirubin Urine Urobilinogen Ur Leukocyte Esterase Urine RBC Urine WBC Ur Epithelial Cells Urine Bacteria 03/29/17 03/29/17 03/29/17 05:00 05:00 06:00 WBC RBC Hgb Hct MCV MCH MCHC RDW Plt Count MPV Gran % Lymph % (Auto) [place] % (Auto) Eos % (Auto) Baso % (Auto) Gran # Lymph # [place] # Eos # Baso # PT INR APTT pO2 36 VBG pH 7.24 L VBG pCO2 42.0 VBG HCO3 18.0 L VBG Total CO2 19.3 L VBG O2 Sat (Calc) 71.7 H VBG Base Excess -9.0 L VBG Potassium 3.8 Sodium 138.0 Chloride 114.0 H Glucose 141 H Lactate 4.2 H* FiO2 21.0 Potassium Carbon Dioxide Anion Gap BUN Creatinine Est GFR ( Amer) Est GFR (Non-Af Amer) POC Glucose (mg/dL) Random Glucose Hemoglobin A1c 5.4 Lactic Acid Calcium Phosphorus Magnesium Total Bilirubin AST ALT Alkaline Phosphatase Total Creatine Kinase Troponin I Total Protein Albumin Globulin Albumin/Globulin Ratio TSH 3rd Generation Venous Blood Potassium 3.8 Urine Color Dark yellow Urine Appearance Clear Urine pH 6.0 Ur Specific [place] 1.020 Urine Protein 30 H Urine Glucose (UA) Negative Urine Ketones Negative Urine Blood Negative Urine Nitrate Positive H Urine Bilirubin Small H Urine Urobilinogen 4.0 H Ur Leukocyte Esterase Negative Urine RBC 0 - 2 Urine WBC 0 - 2 Ur Epithelial Cells 0 - 2 Urine Bacteria Few 03/29/17 03/29/17 03/29/17 07:40 08:40 09:40 WBC RBC Hgb Hct MCV MCH MCHC RDW Plt Count MPV Gran % Lymph % (Auto) [place] % (Auto) Eos % (Auto) Baso % (Auto) Gran # Lymph # [place] # Eos # Baso # PT 14.6 H INR 1.35 H APTT > 180.0 H* pO2 107 H VBG pH 7.23 L VBG pCO2 38.0 L VBG HCO3 15.9 L VBG Total CO2 17.1 L VBG O2 Sat (Calc) 98.8 H VBG Base Excess -10.9 L VBG Potassium 4.2 Sodium 141.0 Chloride 119.0 H Glucose 129 H Lactate 4.5 H* FiO2 21.0 Potassium Carbon Dioxide Anion Gap BUN Creatinine Est GFR ( Amer) Est GFR (Non-Af Amer) POC Glucose (mg/dL) 128 H Random Glucose Hemoglobin A1c Lactic Acid Calcium Phosphorus Magnesium Total Bilirubin AST ALT Alkaline Phosphatase Total Creatine Kinase Troponin I Total Protein Albumin Globulin Albumin/Globulin Ratio TSH 3rd Generation Venous Blood Potassium 4.2 Urine Color Urine Appearance Urine pH Ur Specific [place] Urine Protein Urine Glucose (UA) Urine Ketones Urine Blood Urine Nitrate Urine Bilirubin Urine Urobilinogen Ur Leukocyte Esterase Urine RBC Urine WBC Ur Epithelial Cells Urine Bacteria 03/29/17 11:31 WBC RBC Hgb Hct MCV MCH MCHC RDW Plt Count MPV Gran % Lymph % (Auto) [place] % (Auto) Eos % (Auto) Baso % (Auto) Gran # Lymph # [place] # Eos # Baso # PT INR APTT pO2 VBG pH VBG pCO2 VBG HCO3 VBG Total CO2 VBG O2 Sat (Calc) VBG Base Excess VBG Potassium Sodium Chloride Glucose Lactate FiO2 Potassium Carbon Dioxide Anion Gap BUN Creatinine Est GFR ( Amer) Est GFR (Non-Af Amer) POC Glucose (mg/dL) 100 Random Glucose Hemoglobin A1c Lactic Acid Calcium Phosphorus Magnesium Total Bilirubin AST ALT Alkaline Phosphatase Total Creatine Kinase Troponin I Total Protein Albumin Globulin Albumin/Globulin Ratio TSH 3rd Generation Venous Blood Potassium Urine Color Urine Appearance Urine pH Ur Specific [place] Urine Protein Urine Glucose (UA) Urine Ketones Urine Blood Urine Nitrate Urine Bilirubin Urine Urobilinogen Ur Leukocyte Esterase Urine RBC Urine WBC Ur Epithelial Cells Urine Bacteria Attending/Attestation - Attestation I have personally seen and examined this patient.: Yes I have fully participated in the care of the patient.: Yes I have reviewed all pertinent clinical information: Yes Notes (Text): 03/29/17 12:41 81 yr old M w/ hx of CVA, Dementia, chronic constipation who presented with abd pain and vomiting found to have colitis with DDx including ischemic vs infectious. His CT findings suggest a more ischemic etiology due to RAINA and SMA thrombus w/ dissection. Pt was initially hemodynamicaly unstable and required Levophed. Will continue antibiotics and get vascular surgery involved. General surgery has recommended conservative management. GI endoscopic intervention will not pain management nurse which is either surgical or endovascular approach. Unknown if this is acute vs chronic. Recent CT shows worsening thrombus.
[2017-03-29] MEDS ORDERED: Mineral Oil Enema 135 ml RC ONE (10:11)
--- NOTE | 2017-03-29 10:11 | CP.PCM.CON ---
History of Present Illness - History of Present Illness History of Present Illness: 81 year old male with PMH of CVA, HTN, DM, dementia, chronic renal failure, macular degeneration, history of urinary retention was brought in to [facility] because the patient was noted to be having abdominal pain and vomiting since yesterday. The patient has a history of chronic constipation and the patient has not had BM's in the past several days. In the ED, the patient had some watery bowel movement and the patient was noted to have hypotension. He was then sent to the ICU and put on vasopressors. CT scan of the abdomen and pelvis showed colitis and questionable fluid collection. Infectious Diseases consult is requested to further evaluate and manage. Review of Systems - Review of Systems Systems not reviewed;Unavailable: Dementia Past Patient History - Infectious Disease Hx of Infectious Diseases: None - Tetanus Immunizations Tetanus Immunization: Unknown - Past Social History Smoking Status: Former Smoker - CARDIAC Hx Cardiac Disorders: Yes Hx Hypertension: Yes - PULMONARY Hx Respiratory Disorders: No - NEUROLOGICAL HX Cerebrovascular Accident: Yes (2014) Hx Dementia: Yes - HEENT Hx Macular Degeneration: Yes Other/Comment: egd for removal of foreign body 06/08/14 - RENAL Hx Chronic Kidney Disease: No - ENDOCRINE/METABOLIC Hx Diabetes Mellitus Type 2: Yes - HEMATOLOGICAL/ONCOLOGICAL Hx Blood Disorders: No - INTEGUMENTARY Other/Comment: reddened sacrum/ long curled thick toenails both feet/ unable to do proper skin assesment due to agitation - MUSCULOSKELETAL/RHEUMATOLOGICAL Hx Falls: Yes (last one couple weeks ago) Hx Unsteady Gait: Yes (w/ch can't walk/stand) - GASTROINTESTINAL Hx Gastrointestinal Disorders: No Other/Comment: egd for removal of foreigh body - GENITOURINARY/GYNECOLOGICAL Hx Incontinence: Yes Other/Comment: too weak to walk to bathroom/frequent falls - PSYCHIATRIC Hx Psychophysiologic Disorder: No Hx Depression: Yes Hx Emotional Abuse: No Hx Physical Abuse: No Hx Substance Use: No Other/Comment: up at night/pushes furniture/ jumps oob/ can become violent - SURGICAL HISTORY Hx Appendectomy: Yes Other/Comment: sebaceous cyst removal - ANESTHESIA Hx Anesthesia Reactions: Yes Hx Malignant Hyperthermia: No Meds Allergies/Adverse Reactions: Allergies Allergy/AdvReac Type Severity Reaction Status Date / Time No Known Allergies Allergy Verified 11/21/16 17:18 - Medications Medications: Current Medications Heparin Sodium (Porcine) (Heparin) 5,000 units SC Q12H OMAR PRN Reason: Protocol NOREPINEPHRINE BIT/0.9 % NACL (Levophed 4 Mg/ 250 Ml Ns Premixed) 4 mg in 250 mls @ 15 mls/hr IV .[id number] PRN; Protocol; 4 MCG/MIN PRN Reason: TITRATE PER MD ORDER Last Admin: 03/28/17 19:24 Dose: 3.8 mls/hr Sodium Chloride (Sodium Chloride 0.9%) 1,000 mls @ 125 mls/hr IV .Q8H OMAR Last Admin: 03/28/17 22:27 Dose: 125 mls/hr Vancomycin HCl (Vancomycin 1gm) 1 gm in 250 mls @ 167 mls/hr IVPB Q12H OMAR PRN Reason: Protocol Last Admin: 03/28/17 22:00 Dose: 167 mls/hr Piperacillin Sod/Tazobactam Sod (Zosyn 3.375 In Ns 100ml) 100 mls @ 200 mls/hr IVPB Q6 OMAR PRN Reason: Protocol Stop: 03/29/17 06:29 Morphine Sulfate (Morphine) 2 mg IVP Q4H PRN PRN Reason: Pain, severe (8-10) Last Admin: 03/28/17 21:00 Dose: 2 mg Ondansetron HCl (Zofran Inj) 4 mg IVP Q6H PRN PRN Reason: Nausea/Vomiting Pantoprazole Sodium (Protonix Inj) 40 mg IVP DAILY [facility] Quetiapine Fumarate (Seroquel) 12.5 mg PO HS OMAR PRN Reason: Protocol Physical Exam - Constitutional Appears: Non-toxic, No Acute Distress - Head Exam Head Exam: NORMAL INSPECTION - ENT Exam ENT Exam: Mucous Membranes Moist - Neck Exam Neck exam: Negative for: Lymphadenopathy, Meningismus - Respiratory Exam Respiratory Exam: Decreased Breath Sounds - Cardiovascular Exam Cardiovascular Exam: +S1, +S2 - GI/Abdominal Exam GI & Abdominal Exam: Soft, Tenderness (some tenderness noted on the lower quadrants). absent: Distended, Guarding, Rebound, Rigid Results - Vital Signs Recent Vital Signs: Last Vital Signs Temp 97 F L 03/28/17 16:22 Pulse 74 03/28/17 21:30 Resp 24 03/28/17 21:30 BP 90/54 L 03/28/17 21:30 Pulse Ox 94 L 03/28/17 21:30 - Labs Result Diagrams: 03/29/17 05:00 03/29/17 05:00 Labs: Laboratory Results - last 24 hr 03/28/17 03/28/17 03/28/17 21:30 21:30 22:43 pO2 33 VBG pH 7.21 L VBG pCO2 44.0 VBG HCO3 17.6 L VBG Total CO2 19.0 L VBG O2 Sat (Calc) 73.2 H VBG Base Excess -10.0 L VBG Potassium 4.0 Sodium 139.0 Chloride 109.0 H Glucose 234 H Lactate 5.2 H* FiO2 21.0 Lactic Acid 5.0 H* Total Creatine Kinase 39 Venous Blood Potassium 4.0 Assessment & Plan - Assessment and Plan (Free Text) Plan: Assessment Consider sepsis due to acute colitis with associated thickening of the amaya of the rectum, R/O intra-abdominal abscess; patient also has signs on fecal impaction on CT scan of the abdomen and pelvis CVA chronic renal failure HTN macular degeneration DM history of urinary retention Plan started patient on Vancomycin and Zosyn pending blood cx; will follow up GI and possibly surgery evaluation will monitor clinically Discussed with Dr. Sanchez
[2017-03-29] MEDS ORDERED: Lactated Ringer's 1,000 ML IV SCH (10:12)
--- NOTE | 2017-03-29 12:33 | CP.PCM.PN ---
Subjective - Date & Time of Evaluation Date of Evaluation: 03/29/17 Time of Evaluation: 12:30 - Subjective Subjective: Patient seen and examined at bedside. Patient is a poor historian due to dementia. Nurse mentioned CHELLY. 7 loose, nonbloody BM overnight. Enema administered before time of visit. Patient responded to name and when asked location of pain, but was not able to answer any more questions. Patient was administered morphine prior to visit at bedside. Objective - Vital Signs/Intake and Output Vital Signs (last 24 hours): Temp Pulse Resp BP Pulse Ox 98 F 103 H 20 115/68 93 L 03/29/17 04:00 03/29/17 12:10 03/29/17 12:10 03/29/17 12:00 03/29/17 12:10 Intake and Output: 03/29/17 03/29/17 06:59 18:59 Intake Total 925 362.6 Output Total 100 Balance 825 362.6 - Medications Medications: Current Medications NOREPINEPHRINE BIT/0.9 % NACL (Levophed 4 Mg/ 250 Ml Ns Premixed) 4 mg in 250 mls @ 15 mls/hr IV .[id number] PRN; Protocol; 4 MCG/MIN PRN Reason: TITRATE PER MD ORDER Last Admin: 03/29/17 09:43 Dose: 3 mcg/min, 11.25 mls/hr Sodium Chloride (Sodium Chloride 0.9%) 1,000 mls @ 125 mls/hr IV .Q8H OMAR Last Admin: 03/29/17 05:00 Dose: 125 mls/hr Vancomycin HCl (Vancomycin 1gm) 1 gm in 250 mls @ 167 mls/hr IVPB Q12H OMAR PRN Reason: Protocol Last Admin: 03/29/17 08:01 Dose: 167 mls/hr Piperacillin Sod/Tazobactam Sod (Zosyn 3.375 In Ns 100ml) 100 mls @ 200 mls/hr IVPB Q6 OMAR PRN Reason: Protocol Stop: 04/06/17 00:01 Last Admin: 03/29/17 12:12 Dose: 200 mls/hr Heparin Sodium/Dextrose (Heparin 25,000 Units/250ml In D5w) 25,000 units in 250 mls @ 10.475 mls/hr IV .[id number] PRN; Protocol; 18 UNITS/KG/HR PRN Reason: ADJUST RATE PER PROTOCOL Last Titration: 03/29/17 12:13 Dose: 15 units/kg/hr, 8.729 mls/hr Lactated Ringer's (Lactated Ringer's) 1,000 mls @ 999 mls/hr IV .Q1H1M [facility] Last Admin: 03/29/17 10:42 Dose: 999 mls/hr Morphine Sulfate (Morphine) 2 mg IVP Q4H PRN PRN Reason: Pain, severe (8-10) Last Admin: 03/29/17 09:51 Dose: 2 mg Ondansetron HCl (Zofran Inj) 4 mg IVP Q6H PRN PRN Reason: Nausea/Vomiting Pantoprazole Sodium (Protonix Inj) 40 mg IVP DAILY [facility] Last Admin: 03/29/17 09:13 Dose: 40 mg Quetiapine Fumarate (Seroquel) 12.5 mg PO HS OMAR PRN Reason: Protocol Last Admin: 03/28/17 22:00 Dose: Not Given - Labs Labs: 03/29/17 05:00 03/29/17 05:00 PT 14.6 Seconds (9.9-11.8) H 03/29/17 08:40 INR 1.35 (0.93-1.08) H 03/29/17 08:40 APTT > 180.0 Seconds (23.7-30.8) H* 03/29/17 08:40 - Constitutional Appears: Chronically Ill - Head Exam Head Exam: NORMAL INSPECTION - Eye Exam Eye Exam: EOMI, Normal appearance - ENT Exam ENT Exam: Mucous Membranes Moist, Normal Exam - Respiratory Exam Respiratory Exam: NORMAL BREATHING PATTERN. absent: Accessory Muscle Use, Rhonchi, Wheezes, Respiratory Distress - Cardiovascular Exam Cardiovascular Exam: REGULAR RHYTHM. absent: Bradycardia, Tachycardia - GI/Abdominal Exam GI & Abdominal Exam: Rigid, Tenderness. absent: Diminished Bowel Sounds - Rectal Exam Rectal Exam: absent: Black Stool, Bloody Stool - Neurological Exam Neurological Exam: absent: Alert, Awake, Normal Gait - Psychiatric Exam Psychiatric exam: Normal Affect - Skin Skin Exam: Pallor
--- NOTE | 2017-03-29 13:29 | CP.PCM.CON ---
History of Present Illness - History of Present Illness History of Present Illness: Palliative consult requested by Dr Nilson Dixon copied to Dr. Andrew Newman Goals of Care:Advance care planning 81 year old male who presented with abdominal pain and vomiting. Initial CT of abdomen showed fecal impaction,rectal and sigmoid wall thickening. 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 Subsequently the patient became hypotensive requiring fluids and pressers. He is currently being managed in the ICU. PMHx: Advanced dementia, CVA, chronic constipation, HHTN, DM, s/p appendectomy. Social History: Former smoker,no alcohol or drug. , lives with spouse. Family History: Non contributory. Advance Care Planning: The patient does not have an Advance Directive: He is currently a full code status. Review of Systems: As per HPI, history of constipation. Patient altered mental status unable to obtain complete ROS Past Patient History - Infectious Disease Hx of Infectious Diseases: None - Tetanus Immunizations Tetanus Immunization: Unknown - Past Social History Smoking Status: Former Smoker - CARDIAC Hx Cardiac Disorders: Yes Hx Hypertension: Yes - PULMONARY Hx Respiratory Disorders: No - NEUROLOGICAL HX Cerebrovascular Accident: Yes (2014) Hx Dementia: Yes - HEENT Hx Macular Degeneration: Yes Other/Comment: egd for removal of foreign body 06/08/14 - RENAL Hx Chronic Kidney Disease: No - ENDOCRINE/METABOLIC Hx Diabetes Mellitus Type 2: Yes - HEMATOLOGICAL/ONCOLOGICAL Hx Blood Disorders: No - INTEGUMENTARY Other/Comment: reddened sacrum/ long curled thick toenails both feet/ unable to do proper skin assesment due to agitation - MUSCULOSKELETAL/RHEUMATOLOGICAL Hx Falls: Yes (last one couple weeks ago) Hx Unsteady Gait: Yes (w/ch can't walk/stand) - GASTROINTESTINAL Hx Gastrointestinal Disorders: No Other/Comment: egd for removal of foreigh body - GENITOURINARY/GYNECOLOGICAL Hx Incontinence: Yes Other/Comment: too weak to walk to bathroom/frequent falls - PSYCHIATRIC Hx Psychophysiologic Disorder: No Hx Depression: Yes Hx Emotional Abuse: No Hx Physical Abuse: No Hx Substance Use: No Other/Comment: up at night/pushes furniture/ jumps oob/ can become violent - SURGICAL HISTORY Hx Appendectomy: Yes Other/Comment: sebaceous cyst removal - ANESTHESIA Hx Anesthesia Reactions: Yes Hx Malignant Hyperthermia: No Meds Allergies/Adverse Reactions: Allergies Allergy/AdvReac Type Severity Reaction Status Date / Time No Known Allergies Allergy Verified 11/21/16 17:18 - Medications Medications: Current Medications NOREPINEPHRINE BIT/0.9 % NACL (Levophed 4 Mg/ 250 Ml Ns Premixed) 4 mg in 250 mls @ 15 mls/hr IV .[id number] PRN; Protocol; 4 MCG/MIN PRN Reason: TITRATE PER MD ORDER Last Admin: 03/29/17 09:43 Dose: 3 mcg/min, 11.25 mls/hr Sodium Chloride (Sodium Chloride 0.9%) 1,000 mls @ 125 mls/hr IV .Q8H OMAR Last Admin: 03/29/17 05:00 Dose: 125 mls/hr Vancomycin HCl (Vancomycin 1gm) 1 gm in 250 mls @ 167 mls/hr IVPB Q12H OMAR PRN Reason: Protocol Last Admin: 03/29/17 08:01 Dose: 167 mls/hr Piperacillin Sod/Tazobactam Sod (Zosyn 3.375 In Ns 100ml) 100 mls @ 200 mls/hr IVPB Q6 OMAR PRN Reason: Protocol Stop: 04/06/17 00:01 Last Admin: 03/29/17 12:12 Dose: 200 mls/hr Heparin Sodium/Dextrose (Heparin 25,000 Units/250ml In D5w) 25,000 units in 250 mls @ 10.475 mls/hr IV .[id number] PRN; Protocol; 18 UNITS/KG/HR PRN Reason: ADJUST RATE PER PROTOCOL Last Titration: 03/29/17 12:13 Dose: 15 units/kg/hr, 8.729 mls/hr Lactated Ringer's (Lactated Ringer's) 1,000 mls @ 999 mls/hr IV .Q1H1M OMAR Last Admin: 03/29/17 10:42 Dose: 999 mls/hr Morphine Sulfate (Morphine) 2 mg IVP Q4H PRN PRN Reason: Pain, severe (8-10) Last Admin: 03/29/17 09:51 Dose: 2 mg Ondansetron HCl (Zofran Inj) 4 mg IVP Q6H PRN PRN Reason: Nausea/Vomiting Pantoprazole Sodium (Protonix Inj) 40 mg IVP DAILY [facility] Last Admin: 03/29/17 09:13 Dose: 40 mg Quetiapine Fumarate (Seroquel) 12.5 mg PO HS [facility] PRN Reason: Protocol Last Admin: 03/28/17 22:00 Dose: Not Given Physical Exam - Constitutional Appears: No Acute Distress, Chronically Ill - Head Exam Head Exam: NORMAL INSPECTION - Eye Exam Eye Exam: Normal appearance, PERRL - ENT Exam ENT Exam: Mucous Membranes Moist, Normal Oropharynx - Neck Exam Neck exam: Positive for: Normal Inspection - Respiratory Exam Respiratory Exam: Decreased Breath Sounds, NORMAL BREATHING PATTERN - Cardiovascular Exam Cardiovascular Exam: REGULAR RHYTHM, +S1, +S2 - GI/Abdominal Exam GI & Abdominal Exam: Diminished Bowel Sounds, Soft - Skin Skin Exam: Dry, Pallor - Additional Findings Additional findings: Palliative performance scale rating 40 % Results - Vital Signs Recent Vital Signs: Last Vital Signs Temp 98 F 03/29/17 04:00 Pulse 103 H 03/29/17 12:10 Resp 20 03/29/17 12:10 BP 115/68 03/29/17 12:00 Pulse Ox 93 L 03/29/17 12:10 - Labs Result Diagrams: 03/29/17 05:00 03/29/17 05:00 Labs: Laboratory Results - last 24 hr 03/28/17 03/28/17 03/28/17 21:30 21:30 22:43 WBC RBC Hgb Hct MCV MCH MCHC RDW Plt Count MPV Gran % Lymph % (Auto) [place] % (Auto) Eos % (Auto) Baso % (Auto) Gran # Lymph # [place] # Eos # Baso # PT INR APTT pO2 33 VBG pH 7.21 L VBG pCO2 44.0 VBG HCO3 17.6 L VBG Total CO2 19.0 L VBG O2 Sat (Calc) 73.2 H VBG Base Excess -10.0 L VBG Potassium 4.0 Sodium 139.0 Chloride 109.0 H Glucose 234 H Lactate 5.2 H* FiO2 21.0 Potassium Carbon Dioxide Anion Gap BUN Creatinine Est GFR ( Amer) Est GFR (Non-Af Amer) POC Glucose (mg/dL) Random Glucose Hemoglobin A1c Lactic Acid 5.0 H* Calcium Phosphorus Magnesium Total Bilirubin AST ALT Alkaline Phosphatase Total Creatine Kinase 39 Troponin I < 0.01 Total Protein Albumin Globulin Albumin/Globulin Ratio TSH 3rd Generation Venous Blood Potassium 4.0 Urine Color Urine Appearance Urine pH Ur Specific [place] Urine Protein Urine Glucose (UA) Urine Ketones Urine Blood Urine Nitrate Urine Bilirubin Urine Urobilinogen Ur Leukocyte Esterase Urine RBC Urine WBC Ur Epithelial Cells Urine Bacteria 03/29/17 03/29/17 03/29/17 05:00 05:00 05:00 WBC 17.6 H D RBC 4.05 Hgb 12.0 L Hct 35.9 L MCV 88.6 MCH 29.6 MCHC 33.4 RDW 13.8 Plt Count 327 MPV 10.3 Gran % 89.7 H Lymph % (Auto) 6.3 L [place] % (Auto) 3.9 Eos % (Auto) 0.0 L Baso % (Auto) 0.1 Gran # 15.76 H Lymph # 1.1 L [place] # 0.7 H Eos # 0.0 Baso # 0.02 PT INR APTT pO2 VBG pH VBG pCO2 VBG HCO3 VBG Total CO2 VBG O2 Sat (Calc) VBG Base Excess VBG Potassium Sodium 142 Chloride 114 H Glucose Lactate FiO2 Potassium 3.6 Carbon Dioxide 18 L Anion Gap 14 BUN 24 H Creatinine 1.1 Est GFR ( Amer) > 60 Est GFR (Non-Af Amer) > 60 POC Glucose (mg/dL) Random Glucose 133 H Hemoglobin A1c Lactic Acid Calcium 7.8 L Phosphorus 3.0 Magnesium 2.5 H Total Bilirubin 0.8 AST 31 ALT 18 Alkaline Phosphatase 51 Total Creatine Kinase 25 L Troponin I < 0.01 Total Protein 5.0 L Albumin 2.3 L Globulin 2.7 Albumin/Globulin Ratio 0.9 L TSH 3rd Generation 1.4 Venous Blood Potassium Urine Color Urine Appearance Urine pH Ur Specific [place] Urine Protein Urine Glucose (UA) Urine Ketones Urine Blood Urine Nitrate Urine Bilirubin Urine Urobilinogen Ur Leukocyte Esterase Urine RBC Urine WBC Ur Epithelial Cells Urine Bacteria 03/29/17 03/29/17 03/29/17 05:00 05:00 06:00 WBC RBC Hgb Hct MCV MCH MCHC RDW Plt Count MPV Gran % Lymph % (Auto) [place] % (Auto) Eos % (Auto) Baso % (Auto) Gran # Lymph # [place] # Eos # Baso # PT INR APTT pO2 36 VBG pH 7.24 L VBG pCO2 42.0 VBG HCO3 18.0 L VBG Total CO2 19.3 L VBG O2 Sat (Calc) 71.7 H VBG Base Excess -9.0 L VBG Potassium 3.8 Sodium 138.0 Chloride 114.0 H Glucose 141 H Lactate 4.2 H* FiO2 21.0 Potassium Carbon Dioxide Anion Gap BUN Creatinine Est GFR ( Amer) Est GFR (Non-Af Amer) POC Glucose (mg/dL) Random Glucose Hemoglobin A1c 5.4 Lactic Acid Calcium Phosphorus Magnesium Total Bilirubin AST ALT Alkaline Phosphatase Total Creatine Kinase Troponin I Total Protein Albumin Globulin Albumin/Globulin Ratio TSH 3rd Generation Venous Blood Potassium 3.8 Urine Color Dark yellow Urine Appearance Clear Urine pH 6.0 Ur Specific [place] 1.020 Urine Protein 30 H Urine Glucose (UA) Negative Urine Ketones Negative Urine Blood Negative Urine Nitrate Positive H Urine Bilirubin Small H Urine Urobilinogen 4.0 H Ur Leukocyte Esterase Negative Urine RBC 0 - 2 Urine WBC 0 - 2 Ur Epithelial Cells 0 - 2 Urine Bacteria Few 03/29/17 03/29/17 03/29/17 07:40 08:40 09:40 WBC RBC Hgb Hct MCV MCH MCHC RDW Plt Count MPV Gran % Lymph % (Auto) [place] % (Auto) Eos % (Auto) Baso % (Auto) Gran # Lymph # [place] # Eos # Baso # PT 14.6 H INR 1.35 H APTT > 180.0 H* pO2 107 H VBG pH 7.23 L VBG pCO2 38.0 L VBG HCO3 15.9 L VBG Total CO2 17.1 L VBG O2 Sat (Calc) 98.8 H VBG Base Excess -10.9 L VBG Potassium 4.2 Sodium 141.0 Chloride 119.0 H Glucose 129 H Lactate 4.5 H* FiO2 21.0 Potassium Carbon Dioxide Anion Gap BUN Creatinine Est GFR ( Amer) Est GFR (Non-Af Amer) POC Glucose (mg/dL) 128 H Random Glucose Hemoglobin A1c Lactic Acid Calcium Phosphorus Magnesium Total Bilirubin AST ALT Alkaline Phosphatase Total Creatine Kinase Troponin I Total Protein Albumin Globulin Albumin/Globulin Ratio TSH 3rd Generation Venous Blood Potassium 4.2 Urine Color Urine Appearance Urine pH Ur Specific [place] Urine Protein Urine Glucose (UA) Urine Ketones Urine Blood Urine Nitrate Urine Bilirubin Urine Urobilinogen Ur Leukocyte Esterase Urine RBC Urine WBC Ur Epithelial Cells Urine Bacteria 03/29/17 11:31 WBC RBC Hgb Hct MCV MCH MCHC RDW Plt Count MPV Gran % Lymph % (Auto) [place] % (Auto) Eos % (Auto) Baso % (Auto) Gran # Lymph # [place] # Eos # Baso # PT INR APTT pO2 VBG pH VBG pCO2 VBG HCO3 VBG Total CO2 VBG O2 Sat (Calc) VBG Base Excess VBG Potassium Sodium Chloride Glucose Lactate FiO2 Potassium Carbon Dioxide Anion Gap BUN Creatinine Est GFR ( Amer) Est GFR (Non-Af Amer) POC Glucose (mg/dL) 100 Random Glucose Hemoglobin A1c Lactic Acid Calcium Phosphorus Magnesium Total Bilirubin AST ALT Alkaline Phosphatase Total Creatine Kinase Troponin I Total Protein Albumin Globulin Albumin/Globulin Ratio TSH 3rd Generation Venous Blood Potassium Urine Color Urine Appearance Urine pH Ur Specific [place] Urine Protein Urine Glucose (UA) Urine Ketones Urine Blood Urine Nitrate Urine Bilirubin Urine Urobilinogen Ur Leukocyte Esterase Urine RBC Urine WBC Ur Epithelial Cells Urine Bacteria Assessment & Plan - Assessment and Plan (Free Text) Assessment: 81 year old male with history of dementia, constipation and DM who was admitted with fecal impaction, thickening of the amaya of small bowel, sigmoid and rectum, 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 I spoke with patient's via phone. Mrs. Ennis states that her has advanced dementia with occasional behavioral disturbance. reports that he needs assistance with ADL's. reports that the patient has chronic constipation, but did not see any significant changes in health/behavior over the last few days. I specifically asked about her 's resuscitation wishes. states they have never discussed resuscitation wishes or advance care planning. Benefits and burdens of resuscitation with CPR/intubation explained. Mrs. Ennis indicated that she would not make decision regarding resuscitation status until speaking with her daughters. I also met with patient's daughter Mari who was at bedside.We spoke of her understanding of patient's medical condition and the seriousness of his condition. I explained that I had an earlier conversation with her mother regarding resuscitation status. We discussed benefits and burdens of resuscitation. Encouraged daughter to have further discussion with her mother regarding goals of care and resuscitation status. Psychosocial support given. Time spent in conversation with and daughter regarding goals of care and advance care planning. Plan: Advance care planning
--- NOTE | 2017-03-29 14:43 | CP.PCM.PN ---
<MARINAKIRSTIN MAJANO - Last Filed: 03/29/17 15:08> Subjective - Date & Time of Evaluation Date of Evaluation: 03/29/17 Time of Evaluation: 11:00 - Subjective Subjective: PGY1 ICU Progress Note: Pt seen and examined at bedside. Pt admitted to ICU overnight for septic shock 2 /2 likely colitis. Pt on levophed drip, pt more awake, alert, oriented to place and person, not time (baseline mental status not well known, has dementia). Denies headache, sob, abdominal pain, n/v/d, fever, chills. Objective - Vital Signs/Intake and Output Vital Signs (last 24 hours): Temp Pulse Resp BP Pulse Ox 98 F 97 H 17 115/67 96 03/29/17 04:00 03/29/17 14:00 03/29/17 14:00 03/29/17 14:00 03/29/17 14:00 Intake and Output: 03/29/17 03/29/17 06:59 18:59 Intake Total 925 362.6 Output Total 100 Balance 825 362.6 - Medications Medications: Current Medications NOREPINEPHRINE BIT/0.9 % NACL (Levophed 4 Mg/ 250 Ml Ns Premixed) 4 mg in 250 mls @ 15 mls/hr IV .[id number] PRN; Protocol; 4 MCG/MIN PRN Reason: TITRATE PER MD ORDER Last Admin: 03/29/17 09:43 Dose: 3 mcg/min, 11.25 mls/hr Sodium Chloride (Sodium Chloride 0.9%) 1,000 mls @ 125 mls/hr IV .Q8H OMAR Last Admin: 03/29/17 05:00 Dose: 125 mls/hr Vancomycin HCl (Vancomycin 1gm) 1 gm in 250 mls @ 167 mls/hr IVPB Q12H OMAR PRN Reason: Protocol Last Admin: 03/29/17 08:01 Dose: 167 mls/hr Piperacillin Sod/Tazobactam Sod (Zosyn 3.375 In Ns 100ml) 100 mls @ 200 mls/hr IVPB Q6 OMAR PRN Reason: Protocol Stop: 04/06/17 00:01 Last Admin: 03/29/17 12:12 Dose: 200 mls/hr Heparin Sodium/Dextrose (Heparin 25,000 Units/250ml In D5w) 25,000 units in 250 mls @ 10.475 mls/hr IV .[id number] PRN; Protocol; 18 UNITS/KG/HR PRN Reason: ADJUST RATE PER PROTOCOL Last Titration: 03/29/17 12:13 Dose: 15 units/kg/hr, 8.729 mls/hr Lactated Ringer's (Lactated Ringer's) 1,000 mls @ 999 mls/hr IV .Q1H1M OMAR Last Admin: 03/29/17 10:42 Dose: 999 mls/hr Morphine Sulfate (Morphine) 2 mg IVP Q4H PRN PRN Reason: Pain, severe (8-10) Last Admin: 03/29/17 09:51 Dose: 2 mg Ondansetron HCl (Zofran Inj) 4 mg IVP Q6H PRN PRN Reason: Nausea/Vomiting Pantoprazole Sodium (Protonix Inj) 40 mg IVP DAILY [facility] Last Admin: 03/29/17 09:13 Dose: 40 mg Quetiapine Fumarate (Seroquel) 12.5 mg PO HS OMAR PRN Reason: Protocol Last Admin: 03/28/17 22:00 Dose: Not Given - Labs Labs: 03/29/17 05:00 03/29/17 05:00 PT 14.6 Seconds (9.9-11.8) H 03/29/17 08:40 INR 1.35 (0.93-1.08) H 03/29/17 08:40 APTT > 180.0 Seconds (23.7-30.8) H* 03/29/17 08:40 - Constitutional Appears: No Acute Distress - Head Exam Head Exam: ATRAUMATIC, NORMOCEPHALIC - Eye Exam Eye Exam: PERRL - ENT Exam ENT Exam: Mucous Membranes Moist - Respiratory Exam Respiratory Exam: Clear to Ausculation Bilateral - Cardiovascular Exam Cardiovascular Exam: Tachycardia, RRR, +S1, +S2 - GI/Abdominal Exam GI & Abdominal Exam: Distended, Hypoactive Bowel Sounds. absent: Guarding, Rigid Additional comments: TTP throughout abdomen. - Extremities Exam Extremities Exam: absent: Calf Tenderness, Pedal Edema - Neurological Exam Neurological Exam: Awake - Psychiatric Exam Psychiatric exam: Normal Mood - Skin Skin Exam: Dry, Intact, Warm Assessment and Plan - Assessment and Plan (Free Text) Assessment: 81M with hx dementia, several CVAs, admitted to ICU for septic shock 2/2 likely colitis, also found to have SMA and RAINA thrombosis. Plan: Neuro: baseline dementia. More awake, oriented to person and place, not time. Cont to monitor. Hold home med seroquel. CV: intiially, pt hypotensive BP 70's/30's, started on levophed, s/p 5L IVF bolus, BP stable now 130's/80's, not requiring levophed. Mild tachycardia, HR 97-110, Cont to monitor. Pulmonary: On NC, saturating well. Cont to monitor. Keep head of bed elevated. Aspiration precautions will be continued. GI: Colitis with SMA and RAINA thrombosis, as seen on CT. C/w IV abx, NPO, Heparin drip, protonix. GI and surgery c/s appreciated. No inpatient colonoscopy per GI fellow. - Zofran prn nausea Renal: Urine culture results pending. Urology: Urology consulted, bernabe cath draining urine. Monitor UO. Endocrine: BorX5w6.5. maintain euglycemia. TSH 1.4. ID: afebrile, leukocytosis 10.6->17.6 today, On Vanc and Zosyn. Blood cultures show gr+ cocci, Urine cultures pending. C diff toxin and antigen negative. ID c/ s appreciated. will f/u. Hematology: H/H stable. DVT PPX: on hep drip GI PPX: Protonix Case discussed and reviewed with PGY2 and attending, Dr. Shen. Kirstin Herrera, PGY1 <Hermelinda MCCORMACK,[facility] - Last Filed: 03/29/17 16:17> Objective - Vital Signs/Intake and Output Vital Signs (last 24 hours): Temp Pulse Resp BP Pulse Ox 98 F 97 H 17 115/67 96 03/29/17 04:00 03/29/17 14:00 03/29/17 14:00 03/29/17 14:00 03/29/17 14:00 Intake and Output: 03/29/17 03/29/17 06:59 18:59 Intake Total 925 362.6 Output Total 100 Balance 825 362.6 - Medications Medications: Current Medications NOREPINEPHRINE BIT/0.9 % NACL (Levophed 4 Mg/ 250 Ml Ns Premixed) 4 mg in 250 mls @ 15 mls/hr IV .[id number] PRN; Protocol; 4 MCG/MIN PRN Reason: TITRATE PER MD ORDER Last Admin: 03/29/17 09:43 Dose: 3 mcg/min, 11.25 mls/hr Sodium Chloride (Sodium Chloride 0.9%) 1,000 mls @ 125 mls/hr IV .Q8H [facility] Last Admin: 03/29/17 05:00 Dose: 125 mls/hr Vancomycin HCl (Vancomycin 1gm) 1 gm in 250 mls @ 167 mls/hr IVPB Q12H OMAR PRN Reason: Protocol Last Admin: 03/29/17 08:01 Dose: 167 mls/hr Piperacillin Sod/Tazobactam Sod (Zosyn 3.375 In Ns 100ml) 100 mls @ 200 mls/hr IVPB Q6 OMAR PRN Reason: Protocol Stop: 04/06/17 00:01 Last Admin: 03/29/17 12:12 Dose: 200 mls/hr Heparin Sodium/Dextrose (Heparin 25,000 Units/250ml In D5w) 25,000 units in 250 mls @ 10.475 mls/hr IV .[id number] PRN; Protocol; 18 UNITS/KG/HR PRN Reason: ADJUST RATE PER PROTOCOL Last Titration: 03/29/17 12:13 Dose: 15 units/kg/hr, 8.729 mls/hr Lactated Ringer's (Lactated Ringer's) 1,000 mls @ 999 mls/hr IV .Q1H1M [facility] Last Admin: 03/29/17 10:42 Dose: 999 mls/hr Morphine Sulfate (Morphine) 2 mg IVP Q4H PRN PRN Reason: Pain, severe (8-10) Last Admin: 03/29/17 09:51 Dose: 2 mg Ondansetron HCl (Zofran Inj) 4 mg IVP Q6H PRN PRN Reason: Nausea/Vomiting Pantoprazole Sodium (Protonix Inj) 40 mg IVP DAILY [facility] Last Admin: 03/29/17 09:13 Dose: 40 mg Quetiapine Fumarate (Seroquel) 12.5 mg PO HS OMAR PRN Reason: Protocol Last Admin: 03/28/17 22:00 Dose: Not Given - Labs Labs: 03/29/17 05:00 07/12/17 05:00 PT 14.6 Seconds (9.9-11.8) H 03/29/17 08:40 INR 1.35 (0.93-1.08) H 03/29/17 08:40 APTT > 180.0 Seconds (23.7-30.8) H* 03/29/17 08:40 Attending/Attestation - Attestation I have personally seen and examined this patient.: Yes I have fully participated in the care of the patient.: Yes I have reviewed all pertinent clinical information, including history, physical exam and plan: Yes Notes (Text): 03/29/17 16:15 81 y/o M w/ dementia admitted for Abd pain Found to have collitis and/or sma/RAINA thrombus/ desection. On Heparin drip for anticoagulation. Surgery consulted in the event any further ischemic changes in the gut. BP improved w/ IV fluids , off all vasopressors. R groin TLC placed by ER. On broad spectrum abx w/ cx pending. Needs paliative care consult. poor prognosis ppi dvt p w/ Heparin cc time 65 min
--- NOTE | 2017-03-29 16:44 | CARD ---
APPROVED REPORT EKG Measurement Heart [id number] <Conclusion> Sinus bradycardia with 1st degree AV block Low voltage QRS Nonspecific T wave abnormality Abnormal ECG
[2017-03-29] MEDS ORDERED: Vitamins A & D Oint UD Foilpak TOP ONE (17:13)
--- NOTE | 2017-03-29 18:32 | CARD ---
APPROVED REPORT EXAM: Two-dimensional and M-mode echocardiogram with Doppler and color Doppler. INDICATION EF 2D DIMENSIONS LVOT Diameter2.0 (1.8-2.4cm) Aortic Valve AoV Peak Ieyqlbma429.0cm/sAoV VTI36.3cmAO Peak GR.20mmHg LVOT Peak Ywkmyezo11.0cm/sLVOT VTI13.30cmAO Mean GR.12mmHg MAINE (VMAX)1.42cm0HDM (VTI)1.15cm2 Mitral Valve MV E Jaeabbce46.4cm/sMV A Rgfwctaz862.0cm/sE/A ratio0.7 TDI E/Lateral E'0.0E/Medial E'0.0 Tricuspid Valve TR Peak Mpxodtol530ec/sRAP [id number] Peak Gr.18mmHg [id number] LEFT VENTRICLE The left ventricle is normal size. There is mild concentric left ventricular hypertrophy. The left ventricular function is normal.EF-55-60% There is normal LV segmental wall motion. Transmitral Doppler flow pattern is Grade III-reversible restrictive diastolic dysfunction. No left ventricle thrombus noted on this study. There is no ventricular septal defect visualized. There is no left ventricular aneurysm. There is no mass noted in the left ventricle. RIGHT VENTRICLE The right ventricle is normal size. There is normal right ventricular wall thickness. The right ventricular systolic function is normal. ATRIA The left atrium is borderline dilated. The right atrium size is normal. The interatrial septum is intact with no evidence for an atrial septal defect. AORTIC VALVE The aortic valve is calcified and displays decreased opening. The aortic valve is not well visualized. There is mild aortic regurgitation. Possible mild to moderte MITRAL VALVE The mitral valve is thickened but opens well. Mitral regurgitation is trace. There is no mitral valve stenosis. There is no evidence of mitral valve prolapse. TRICUSPID VALVE The tricuspid valve leaflets are thickened , but open well. There is mild tricuspid regurgitation.RVSP-28 mmof Hg. There is no tricuspid valve stenosis. There is no tricuspid valve prolapse or vegetation. PULMONIC VALVE The pulmonic valve is not well visualized. GREAT VESSELS The aortic root is normal in size. The ascending aorta is normal in size. The pulmonary artery is normal. The IVC is normal in size and collapses >50% with inspiration. PERICARDIAL EFFUSION There is no pleural effusion. There is no pericardial effusion. <Conclusion> The left ventricle is normal size. There is mild concentric left ventricular hypertrophy. The left ventricular function is normal.EF-55-60% The aortic valve is calcified and displays decreased opening. The aortic valve is not well visualized. There is mild aortic regurgitation. Possible mild to moderte Mitral regurgitation is trace. There is mild tricuspid regurgitation.RVSP-28 mmof Hg. TDS; pt was supine during study Suggest to repeat Study when pt is stable to assess Aortic Valce Stenosis. No vegetation or thrombus noted.
[2017-03-30] MEDS: Sodium Chloride 0.9% 1,000 ML IV SCH ×2 (03:49→22:14)
[2017-03-30 06:20] LABS: HEMOGLOBIN 9.9 gm/dL (14.0-18.0); MEAN CELL VOLUME 86.7 fL (80.0-105.0); MEAN CORPUSCULAR HEMOGLOBIN 28.7 pg (25.0-35.0); MEAN CORPUSCULAR HGB CONC 33.1 g/dl (31.0-37.0); MEAN PLATELET VOLUME 10.4 fl (7.0-11.0); PLATELET COUNT 263 10^3/uL (120.0-450.0); RBC 3.45 10^6/uL (3.5-6.1); RED CELL DISTRIBUTION WIDTH 14.2 % (11.5-14.5); WHITE BLOOD COUNT 16.7 10^3/ul (4.5-11.0)
[2017-03-30] MEDS: Piperacillin/Tazobact 3.375 gm 100 ML IVPB SCH ×2 (06:28→12:29)
[2017-03-30 06:49] LABS: NEUTROPHIL 73 % (50.0-70.0)
[2017-03-30 06:50] LABS: BAND 14 % (0-2); LYMPHOCYTE 7 % (22.0-35.0); MONOCYTE 4 % (1.0-6.0); PLATELET ESTIMATE NORMAL (NORMAL)
--- NOTE | 2017-03-30 07:05 | CP.PCM.PN ---
Subjective - Date & Time of Evaluation Date of Evaluation: 03/30/17 Time of Evaluation: 07:01 - Subjective Subjective: General Surgery Progress Note Resident: Roberto Attending: [place] HPI: Pt seen and examined at bedside. Patient demented and unable to clearly answer questions. Objective - Vital Signs/Intake and Output Vital Signs (last 24 hours): Temp Pulse Resp BP Pulse Ox 98.9 F 98 H 14 138/71 99 03/30/17 04:00 03/30/17 06:30 03/30/17 06:30 03/30/17 06:30 03/30/17 06:30 Intake and Output: 03/30/17 03/30/17 06:59 18:59 Intake Total 2063.4 Output Total 750 Balance 1313.4 - Medications Medications: Current Medications NOREPINEPHRINE BIT/0.9 % NACL (Levophed 4 Mg/ 250 Ml Ns Premixed) 4 mg in 250 mls @ 15 mls/hr IV .[id number] PRN; Protocol; 4 MCG/MIN PRN Reason: TITRATE PER MD ORDER Last Titration: 03/29/17 09:45 Dose: 0 mcg/min, 0 mls/hr Sodium Chloride (Sodium Chloride 0.9%) 1,000 mls @ 125 mls/hr IV .Q8H OMAR Last Admin: 03/30/17 03:49 Dose: 125 mls/hr Vancomycin HCl (Vancomycin 1gm) 1 gm in 250 mls @ 167 mls/hr IVPB Q12H OMAR PRN Reason: Protocol Last Admin: 03/29/17 21:01 Dose: 167 mls/hr Piperacillin Sod/Tazobactam Sod (Zosyn 3.375 In Ns 100ml) 100 mls @ 200 mls/hr IVPB Q6 OMAR PRN Reason: Protocol Stop: 04/06/17 00:01 Last Admin: 03/30/17 06:28 Dose: 200 mls/hr Heparin Sodium/Dextrose (Heparin 25,000 Units/250ml In D5w) 25,000 units in 250 mls @ 10.475 mls/hr IV .[id number] PRN; Protocol; 18 UNITS/KG/HR PRN Reason: ADJUST RATE PER PROTOCOL Last Titration: 03/30/17 03:22 Dose: 0 units/kg/hr, 0 mls/hr Lactated Ringer's (Lactated Ringer's) 1,000 mls @ 999 mls/hr IV .Q1H1M [facility] Last Admin: 03/29/17 10:42 Dose: 999 mls/hr Morphine Sulfate (Morphine) 2 mg IVP Q4H PRN PRN Reason: Pain, severe (8-10) Last Admin: 03/29/17 18:56 Dose: 2 mg Ondansetron HCl (Zofran Inj) 4 mg IVP Q6H PRN PRN Reason: Nausea/Vomiting Pantoprazole Sodium (Protonix Inj) 40 mg IVP DAILY [facility] Last Admin: 03/29/17 09:13 Dose: 40 mg Quetiapine Fumarate (Seroquel) 12.5 mg PO HS OMAR PRN Reason: Protocol Last Admin: 03/28/17 22:00 Dose: Not Given - Labs Labs: 03/30/17 05:45 03/29/17 05:00 PT 14.6 Seconds (9.9-11.8) H 03/29/17 08:40 INR 1.35 (0.93-1.08) H 03/29/17 08:40 APTT > 180.0 Seconds (23.7-30.8) H* 03/30/17 03:30 - Constitutional Appears: No Acute Distress - Head Exam Head Exam: ATRAUMATIC - Eye Exam Eye Exam: EOMI - ENT Exam ENT Exam: Mucous Membranes Moist - Respiratory Exam Respiratory Exam: Clear to Ausculation Bilateral - Cardiovascular Exam Cardiovascular Exam: REGULAR RHYTHM - GI/Abdominal Exam GI & Abdominal Exam: Firm, Tenderness. absent: Distended - Neurological Exam Neurological Exam: Altered. 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
--- NOTE | 2017-03-30 07:37 | CP.PCM.PN ---
<KIRSTIN GRAY - Last Filed: 03/30/17 10:41> Subjective - Date & Time of Evaluation Date of Evaluation: 03/30/17 Time of Evaluation: 07:27 - Subjective Subjective: Pt seen and examined at bedside. Pt's PTT elevated, heparin drip held, will recheck the next PTT. No other acute events overnight. Pt awake, at baseline mental status (pt has dementia). Denies abdominal pain, sob, cp. Objective - Vital Signs/Intake and Output Vital Signs (last 24 hours): Temp Pulse Resp BP Pulse Ox 98.9 F 98 H 14 138/71 99 03/30/17 04:00 03/30/17 06:30 03/30/17 06:30 03/30/17 06:30 03/30/17 06:30 Intake and Output: 03/30/17 03/30/17 06:59 18:59 Intake Total 2063.4 Output Total 750 Balance 1313.4 - Medications Medications: Current Medications NOREPINEPHRINE BIT/0.9 % NACL (Levophed 4 Mg/ 250 Ml Ns Premixed) 4 mg in 250 mls @ 15 mls/hr IV .[id number] PRN; Protocol; 4 MCG/MIN PRN Reason: TITRATE PER MD ORDER Last Titration: 03/29/17 09:45 Dose: 0 mcg/min, 0 mls/hr Sodium Chloride (Sodium Chloride 0.9%) 1,000 mls @ 125 mls/hr IV .Q8H OMAR Last Admin: 03/30/17 03:49 Dose: 125 mls/hr Vancomycin HCl (Vancomycin 1gm) 1 gm in 250 mls @ 167 mls/hr IVPB Q12H OMAR PRN Reason: Protocol Last Admin: 03/29/17 21:01 Dose: 167 mls/hr Piperacillin Sod/Tazobactam Sod (Zosyn 3.375 In Ns 100ml) 100 mls @ 200 mls/hr IVPB Q6 OMAR PRN Reason: Protocol Stop: 04/06/17 00:01 Last Admin: 03/30/17 06:28 Dose: 200 mls/hr Heparin Sodium/Dextrose (Heparin 25,000 Units/250ml In D5w) 25,000 units in 250 mls @ 10.475 mls/hr IV .[id number] PRN; Protocol; 18 UNITS/KG/HR PRN Reason: ADJUST RATE PER PROTOCOL Last Titration: 03/30/17 03:22 Dose: 0 units/kg/hr, 0 mls/hr Lactated Ringer's (Lactated Ringer's) 1,000 mls @ 999 mls/hr IV .Q1H1M OMAR Last Admin: 03/29/17 10:42 Dose: 999 mls/hr Morphine Sulfate (Morphine) 2 mg IVP Q4H PRN PRN Reason: Pain, severe (8-10) Last Admin: 03/29/17 18:56 Dose: 2 mg Ondansetron HCl (Zofran Inj) 4 mg IVP Q6H PRN PRN Reason: Nausea/Vomiting Pantoprazole Sodium (Protonix Inj) 40 mg IVP DAILY [facility] Last Admin: 03/29/17 09:13 Dose: 40 mg Quetiapine Fumarate (Seroquel) 12.5 mg PO HS OMAR PRN Reason: Protocol Last Admin: 03/28/17 22:00 Dose: Not Given - Labs Labs: 03/30/17 05:45 03/29/17 05:00 PT 14.6 Seconds (9.9-11.8) H 03/29/17 08:40 INR 1.35 (0.93-1.08) H 03/29/17 08:40 APTT > 180.0 Seconds (23.7-30.8) H* 03/30/17 03:30 - Constitutional Appears: No Acute Distress - Head Exam Head Exam: ATRAUMATIC, NORMOCEPHALIC - Eye Exam Eye Exam: PERRL - ENT Exam ENT Exam: Mucous Membranes Moist - Respiratory Exam Respiratory Exam: Decreased Breath Sounds - Cardiovascular Exam Cardiovascular Exam: Tachycardia, RRR, +S1, +S2. absent: Gallop, Rubs, Murmur - GI/Abdominal Exam GI & Abdominal Exam: Soft, Hypoactive Bowel Sounds. absent: Distended, Guarding , Rigid, Rebound - Neurological Exam Neurological Exam: Awake. 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 Off pressors , BP improved with IVF, on heparin drip, Hgb trending down 12->9.9, no melena or overt signs of bleeding, will cont to monitor. Septic encephalopathy improving, pt returned to baseline mentation status. Leukocytosis, bandemia, elevated LA, c/w Vanc and Zosyn per ID. Per surgery, no resection of SMA/RAINA, will consult Dr. Pardo for endovascular IR intervention. Palliative on board, full code currently, will f/u with daughter and . Plan: Neuro: Septic encephalopathy improving, currently baseline mentation status. Awake, not oriented to person, place and time. Cont to monitor. Hold home med seroquel. CV: initially, pt hypotensive BP 70's/30's, started on levophed, s/p 5L IVF bolus, BP stable now 130's/80's, off pressors. R fem TLC discontinued. Mild tachycardia, HR 90's-100's, Cont to monitor. Pulmonary: On 5L NC, saturating well. Cont to monitor. Keep head of bed elevated. Aspiration precautions will be continued. GI: Colitis with SMA and RAINA thrombosis, as seen on CT. C/w IV abx, NPO, Heparin drip, protonix. GI and surgery c/s appreciated. No inpatient colonoscopy per GI. Surgery to not perform resection. Zofran prn nausea Renal: ELISEO, Elevated Cr 1.6, Urine culture results pending. Maintain euvolemia, replace lytes. UO 750 ml/12h. Urology: Urology consulted due to difficult bernabe insertion on admission, bernabe cath draining urine. Endocrine: HgbA1c 5.5. BG 100-128. maintain euglycemia. TSH 1.4. ID: afebrile, leukocytosis 16.7, bandemia, LA 4.5 today. Blood cultures show Streptococci (not yet finalized), will repeat Blood cultures, f/u ESR. CRP. Urine cultures pending. C diff toxin and antigen negative. ID c/s appreciated. C /w Vanc and Zosyn. Hematology: Hgb 12->>9.9 today. No melena or overt signs of bleeding. Cont to trend. DVT PPX: hep drip GI PPX: Protonix Case discussed and reviewed with PGY2 and attending, Dr. Calderón. Kirstin Gray, PGY1 <Daniel Calderón - Last Filed: 03/30/17 12:58> Objective - Vital Signs/Intake and Output Vital Signs (last 24 hours): Temp Pulse Resp BP Pulse Ox 99.3 F 106 H 22 135/72 92 L 03/30/17 12:00 03/30/17 12:10 03/30/17 12:10 03/30/17 12:00 03/30/17 12:10 Intake and Output: 03/30/17 03/30/17 06:59 18:59 Intake Total 2063.4 0 Output Total 750 Balance 1313.4 0 - Medications Medications: Current Medications NOREPINEPHRINE BIT/0.9 % NACL (Levophed 4 Mg/ 250 Ml Ns Premixed) 4 mg in 250 mls @ 15 mls/hr IV .[id number] PRN; Protocol; 4 MCG/MIN PRN Reason: TITRATE PER MD ORDER Last Titration: 03/29/17 09:45 Dose: 0 mcg/min, 0 mls/hr Piperacillin Sod/Tazobactam Sod (Zosyn 3.375 In Ns 100ml) 100 mls @ 200 mls/hr IVPB Q6 OMAR PRN Reason: Protocol Stop: 04/06/17 00:01 Last Admin: 03/30/17 12:29 Dose: 200 mls/hr Heparin Sodium/Dextrose (Heparin 25,000 Units/250ml In D5w) 25,000 units in 250 mls @ 10.475 mls/hr IV .[id number] PRN; Protocol; 18 UNITS/KG/HR PRN Reason: ADJUST RATE PER PROTOCOL Last Titration: 03/30/17 09:52 Dose: 12 units/kg/hr, 6.984 mls/hr Sodium Chloride (Sodium Chloride 0.9%) 100 mls @ 125 mls/hr IV .Q48M [facility] Morphine Sulfate (Morphine) 2 mg IVP Q4H PRN PRN Reason: Pain, severe (8-10) Last Admin: 03/29/17 18:56 Dose: 2 mg Ondansetron HCl (Zofran Inj) 4 mg IVP Q6H PRN PRN Reason: Nausea/Vomiting Pantoprazole Sodium (Protonix Inj) 40 mg IVP DAILY [facility] Last Admin: 03/30/17 09:27 Dose: 40 mg Quetiapine Fumarate (Seroquel) 12.5 mg PO HS OMAR PRN Reason: Protocol Last Admin: 03/28/17 22:00 Dose: Not Given - Labs Labs: 03/30/17 05:45 03/30/17 05:45 PT 14.6 Seconds (9.9-11.8) H 03/29/17 08:40 INR 1.35 (0.93-1.08) H 03/29/17 08:40 APTT 58.1 Seconds (23.7-30.8) H 03/30/17 07:00 Attending/Attestation - Attestation I have personally seen and examined this patient.: Yes I have fully participated in the care of the patient.: Yes I have reviewed all pertinent clinical information, including history, physical exam and plan: Yes Notes (Text): 03/30/17 12:52 81 yo male with cardovascilar risk factors, presented with distributive shock due to ischemic colitis. While clinically improved and off of pressors, still lactic metabolic acidosis is present. Spoke with Dr. Mccormack-surgery--no resection or laparatomy at present time. Will touch base with IR--Dr. Pardo if patient will be a candidate for endovascular procedure. Meanwhile patient is on TAC with heparin. Abx are ongoing. awaiting speciation of strep in blood--? contamination?, femoral CVL removed. Will speak with family about advanced directives as well ccm time 40 min
[2017-03-30 07:58] LABS: CALCIUM 6.9 mg/dL (8.4-10.5)
[2017-03-30] MEDS ORDERED: Sodium Chloride 0.9% 1,000 ML IV SCH (08:34)
--- NOTE | 2017-03-30 09:09 | CP.PCM.PN ---
<Cristobal Carolina - Last Filed: 03/30/17 09:06> Subjective - Date & Time of Evaluation Date of Evaluation: 03/30/17 Time of Evaluation: 07:30 - Subjective Subjective: PGY5 GI Fellow Progress Note Patient seen and examined bedside this morning. The patient does not respond to any questions but does open his eyes when name called loudly. Has obvious grimacing with abdominal palpation. No events overnight. 12 system ROS limited by clinical condition/mentation. Objective - Vital Signs/Intake and Output Vital Signs (last 24 hours): Temp Pulse Resp BP Pulse Ox 99 F 93 H 14 143/78 99 03/30/17 08:00 03/30/17 09:00 03/30/17 09:00 03/30/17 09:00 03/30/17 09:00 Intake and Output: 03/30/17 03/30/17 06:59 18:59 Intake Total 2063.4 Output Total 750 Balance 1313.4 - Medications Medications: Current Medications NOREPINEPHRINE BIT/0.9 % NACL (Levophed 4 Mg/ 250 Ml Ns Premixed) 4 mg in 250 mls @ 15 mls/hr IV .[id number] PRN; Protocol; 4 MCG/MIN PRN Reason: TITRATE PER MD ORDER Last Titration: 03/29/17 09:45 Dose: 0 mcg/min, 0 mls/hr Vancomycin HCl (Vancomycin 1gm) 1 gm in 250 mls @ 167 mls/hr IVPB Q12H OMAR PRN Reason: Protocol Last Admin: 03/29/17 21:01 Dose: 167 mls/hr Piperacillin Sod/Tazobactam Sod (Zosyn 3.375 In Ns 100ml) 100 mls @ 200 mls/hr IVPB Q6 OMAR PRN Reason: Protocol Stop: 04/06/17 00:01 Last Admin: 03/30/17 06:28 Dose: 200 mls/hr Heparin Sodium/Dextrose (Heparin 25,000 Units/250ml In D5w) 25,000 units in 250 mls @ 10.475 mls/hr IV .[id number] PRN; Protocol; 18 UNITS/KG/HR PRN Reason: ADJUST RATE PER PROTOCOL Last Titration: 03/30/17 03:22 Dose: 0 units/kg/hr, 0 mls/hr Sodium Chloride (Sodium Chloride 0.9%) 1,000 mls @ 75 mls/hr IV .[id number] [facility] Morphine Sulfate (Morphine) 2 mg IVP Q4H PRN PRN Reason: Pain, severe (8-10) Last Admin: 03/29/17 18:56 Dose: 2 mg Ondansetron HCl (Zofran Inj) 4 mg IVP Q6H PRN PRN Reason: Nausea/Vomiting Pantoprazole Sodium (Protonix Inj) 40 mg IVP DAILY [facility] Last Admin: 03/29/17 09:13 Dose: 40 mg Quetiapine Fumarate (Seroquel) 12.5 mg PO HS OMAR PRN Reason: Protocol Last Admin: 03/28/17 22:00 Dose: Not Given - Labs Labs: 03/30/17 05:45 03/30/17 05:45 PT 14.6 Seconds (9.9-11.8) H 03/29/17 08:40 INR 1.35 (0.93-1.08) H 03/29/17 08:40 APTT 58.1 Seconds (23.7-30.8) H 03/30/17 07:00 - Constitutional Appears: No Acute Distress, Chronically Ill - Eye Exam Eye Exam: PERRL - ENT Exam ENT Exam: Mucous Membranes Dry - Respiratory Exam Respiratory Exam: Clear to Ausculation Bilateral. absent: Rales, Rhonchi, Wheezes - Cardiovascular Exam Cardiovascular Exam: Tachycardia, REGULAR RHYTHM, +S1, +S2 - GI/Abdominal Exam GI & Abdominal Exam: Soft, Tenderness (diffusely, grimaces with palpation), Diminished Bowel Sounds. absent: Distended, Firm, Guarding, Rigid, Organomegaly - Extremities Exam Extremities Exam: Normal Inspection. absent: Pedal Edema - Neurological Exam Neurological Exam: Altered - Skin Skin Exam: Dry, Warm Assessment and Plan - Assessment and Plan (Free Text) Assessment: Patient is a 81yo male with PMHx significant for CVA, vascular dementia, HTN, DM , chronic constipation who presented to the ED from [place] for worsening mentation, abdominal pain, nausea and vomiting. -Ischemic colitis, compromised SMA/RAINA -Constipation, likely a result of above -Dementia -HTN -DM Plan: -Patient would benefit from vascular surgery and/or IR evaluation given SMA/RAINA occlusion and possible dissection of SMA -On Heparin gtt; PTT elevated thus currently held and will be resumed later -General surgery with no intent for intervention at this juncture -No plans for endoscopic evaluation at this time -Awaiting repeat lactic acid -Pt off pressor support -Hospice/palliative care have evaluated pt/discussed with family - goals of care to be clarified <Hany Mccormick - Last Filed: 03/30/17 09:24> Objective - Vital Signs/Intake and Output Vital Signs (last 24 hours): Temp Pulse Resp BP Pulse Ox 99 F 93 H 14 143/78 99 03/30/17 08:00 03/30/17 09:00 03/30/17 09:00 03/30/17 09:00 03/30/17 09:00 Intake and Output: 03/30/17 03/30/17 06:59 18:59 Intake Total 2063.4 Output Total 750 Balance 1313.4 - Medications Medications: Current Medications NOREPINEPHRINE BIT/0.9 % NACL (Levophed 4 Mg/ 250 Ml Ns Premixed) 4 mg in 250 mls @ 15 mls/hr IV .[id number] PRN; Protocol; 4 MCG/MIN PRN Reason: TITRATE PER MD ORDER Last Titration: 03/29/17 09:45 Dose: 0 mcg/min, 0 mls/hr Vancomycin HCl (Vancomycin 1gm) 1 gm in 250 mls @ 167 mls/hr IVPB Q12H OMAR PRN Reason: Protocol Last Admin: 03/29/17 21:01 Dose: 167 mls/hr Piperacillin Sod/Tazobactam Sod (Zosyn 3.375 In Ns 100ml) 100 mls @ 200 mls/hr IVPB Q6 OMAR PRN Reason: Protocol Stop: 04/06/17 00:01 Last Admin: 03/30/17 06:28 Dose: 200 mls/hr Heparin Sodium/Dextrose (Heparin 25,000 Units/250ml In D5w) 25,000 units in 250 mls @ 10.475 mls/hr IV .[id number] PRN; Protocol; 18 UNITS/KG/HR PRN Reason: ADJUST RATE PER PROTOCOL Last Titration: 03/30/17 03:22 Dose: 0 units/kg/hr, 0 mls/hr Sodium Chloride (Sodium Chloride 0.9%) 1,000 mls @ 75 mls/hr IV .[id number] [facility] Morphine Sulfate (Morphine) 2 mg IVP Q4H PRN PRN Reason: Pain, severe (8-10) Last Admin: 03/29/17 18:56 Dose: 2 mg Ondansetron HCl (Zofran Inj) 4 mg IVP Q6H PRN PRN Reason: Nausea/Vomiting Pantoprazole Sodium (Protonix Inj) 40 mg IVP DAILY [facility] Last Admin: 03/29/17 09:13 Dose: 40 mg Quetiapine Fumarate (Seroquel) 12.5 mg PO HS OMAR PRN Reason: Protocol Last Admin: 03/28/17 22:00 Dose: Not Given - Labs Labs: 03/30/17 05:45 03/30/17 05:45 PT 14.6 Seconds (9.9-11.8) H 03/29/17 08:40 INR 1.35 (0.93-1.08) H 03/29/17 08:40 APTT 58.1 Seconds (23.7-30.8) H 03/30/17 07:00 Attending/Attestation - Attestation I have personally seen and examined this patient.: Yes I have fully participated in the care of the patient.: Yes I have reviewed all pertinent clinical information, including history, physical exam and plan: Yes Notes (Text): 03/30/17 09:20 81 year old male with h/o Dementia, chronic constipation, h/o CVA admitted with abdominal pain and vomiting, found to have evidence of acute mesenteric ischemia. 1. Acute mesenteric ischemia Plan: -patient has both SMA and RAINA compromised blood flow -CT Scan reviewed -RAINA appears stenosed/thrombosed and SMA appears to be dissecting -recommend vascular surgery evaluation and IR evaluation to see if there is any options for revascularization or need for bowel resection, otherwise risk of mortality for this condition is very high -agree with anticoagulation and broad spectrum antibiotics -aggressive supportive measures, monitor serial abdominal exams, monitor lactic acid -he is clinically slightly improved with no need for vasopressor support, but remains critically ill with high risk of mortality -NPO
[2017-03-30] MEDS: Vancomycin 1gm in NS 250ml 1 GM/250 ML BAG IVPB SCH (09:27)
[2017-03-30] MEDS ORDERED: Sodium Chloride 0.9% 100 ML IV SCH (10:35)
[2017-03-30] MEDS ORDERED: Sodium Chloride 0.9% 1,000 ML IV STA ×2 (12:58→21:04)
[2017-03-30] MEDS ORDERED: Lidocaine 2% Inj (20ml) ONE (16:50)
[2017-03-30] MEDS ORDERED: Midazolam 2 MG/2 ML VIAL ONE ×2 (16:51→17:48)
[2017-03-30] MEDS ORDERED: Iodixanol 320 MG/ML 100 ML BOTTLE IV ONE ×3 (16:52→18:34)
[2017-03-30] MEDS ORDERED: Iodixanol 320 MG/ML 200 ML BOTTLE IV ONE (16:52)
[2017-03-30] MEDS ORDERED: Labetalol 5 mg/ml Inj 20ML ONE (18:36)
[2017-03-30] MEDS ORDERED: Heparin 25,000units in D5W 25,000 UNITS/250 ML BAG IV ONE (18:48)
[2017-03-30] MEDS: Heparin 25,000units in D5W 25,000 UNITS/250 ML BAG IV PRN (19:10)
--- NOTE | 2017-03-30 20:01 | VASCULAR ---
PROCEDURE: 1. SMA and RAINA selective arteriograms. 2. SMA origin angioplasty. 3. Proximal RAINA angioplasty. HISTORY: Acute bowel ischemia. Septic. SMA and RAINA occlusive disease on CT. Attempt revascularization PHYSICIAN(S): Kevin Pardo M.D. TECHNIQUE: The relative risks and indications of the procedure were explained to the patient's daughters and consent obtained. The patient was brought emergently to the angiography suite. The patient was placed supine on the arteriogram table and the right groin prepped and draped in the usual sterile fashion. Conscious sedation and monitoring were provided throughout the procedure by a nurse. Via a right common femoral artery approach, a 5 Israeli sheath was placed in the right groin. Through the sheath and over a guidewire, a 5 Israeli flush catheter was placed in the abdominal aorta at the level of the celiac axis and a lateral DSA abdominal aortogram performed. A selective catheter was placed in the proximal SMA and selective DSA SMA arteriogram performed. A 0.035 support wire was placed in the proximal SMA. A 6 Israeli sheath was advanced the proximal SMA. Pull-back pressures were obtained across the proximal SMA. This revealed a 15 mm gradient across the proximal SMA corresponding to the stenosis seen on CTA. The proximal SMA was dilated with an 8 millimeter by 4 cm balloon. A good angiographic result was obtained with elimination of the systolic gradient. No stent was placed due to the possibility of thrombotic debris. The sheath was exchanged for an 8 Israeli hockey stick guide catheter. The origin of the RAINA was found with a Sos 3 catheter. There are tandem stenoses at the origin of the RAINA and 3 cm from the origin. Exchange is made for 0.014 support wire. The proximal RAINA was dilated with 5 and 6 mm balloons. A good angiographic result was obtained. Once again stents were not placed in the proximal RAINA. The guide catheter was removed hemostasis obtained with a Perclose device. The patient tolerated the procedure well. FINDINGS: The celiac axis is patent on lateral view. There is not a significant angiographic stenosis of the proximal SMA on the lateral view. However this corresponds the significant stenosis seen on CTA. A 15 millimeter gradient was demonstrated in this area with pull-back pressures and subsequently the area was successfully treated. Tandem moderate to severe stenoses are seen in the proximal RAINA. The RAINA is large and was successfully dilated with 5 and 6 mm balloons. The visualized abdominal aorta and iliac vessels are patent. IMPRESSION: 1.Proximal SMA stenosis which is not well demonstrated on lateral angiography. However, a 15 millimeter systolic gradient was demonstrated in the area was successfully dilated with an 8 mm balloon. 2. Tandem stenoses in the large proximal RAINA. These were successfully dilated with 5 and 6 mm balloons. 3. The patient should remain anticoagulated for 24-72 hours. 4. Patient will be carefully observed for contrast-induced nephropathy.
[2017-03-30] MEDS: Acetylcysteine 20% Inhal Soln (4ml) PO SCH (21:59)
[2017-03-31] MEDS: Piperacillin/Tazobact 3.375 gm 100 ML IVPB SCH ×5 (00:02→17:44)
[2017-03-31] MEDS: Sodium Chloride 0.9% 1,000 ML IV SCH (01:10)
[2017-03-31] MEDS ORDERED: Sodium Chloride 0.9% 1,000 ML IV SCH (03:03)
[2017-03-31 06:18] LABS: BASO # 0.01 K/mm3 (0.0-2.0); BASO % 0.1 % (0.0-3.0); EOS % 0.1 % (1.5-5.0); GRAN # 7.07 (1.4-6.5); GRAN % 81.1 % (50.0-68.0); LYMPH # 0.8 (1.2-3.4); LYMPH % 9.6 % (22.0-35.0); MEAN CELL VOLUME 85.2 fL (80.0-105.0); MEAN CORPUSCULAR HGB CONC 34.1 g/dl (31.0-37.0); MEAN PLATELET VOLUME 10.5 fl (7.0-11.0); MONO # 0.8 (0.1-0.6); MONO % 9.1 % (1.0-6.0); PLATELET COUNT 212 10^3/uL (120.0-450.0); RED CELL DISTRIBUTION WIDTH 14.3 % (11.5-14.5); WHITE BLOOD COUNT 8.7 10^3/ul (4.5-11.0)
--- NOTE | 2017-03-31 09:07 | CP.PCM.PN ---
<Cristobal Carolina - Last Filed: 03/31/17 11:52> Subjective - Date & Time of Evaluation Date of Evaluation: 03/31/17 Time of Evaluation: 07:20 - Subjective Subjective: PGY5 GI Fellow Progress Note Patient seen and examined bedside this morning. The patient opened his eyes and stated he was "feeling fine" when asked today. Denies any pain. Minimally conversant but not a change from baseline. 12 system ROS limited given mentation/clinical condition. Objective - Vital Signs/Intake and Output Vital Signs (last 24 hours): Temp Pulse Resp BP Pulse Ox 98.7 F 80 17 143/81 97 03/31/17 04:00 03/31/17 05:00 03/31/17 05:00 03/31/17 05:00 03/31/17 05:00 Intake and Output: 03/31/17 03/31/17 06:59 18:59 Intake Total 1901 0 Output Total 4200 Balance -2299 0 - Medications Medications: Current Medications Acetylcysteine (Acetylcysteine 20%) 3 ml PO BID OMAR Last Admin: 03/30/17 21:59 Dose: 3 ml NOREPINEPHRINE BIT/0.9 % NACL (Levophed 4 Mg/ 250 Ml Ns Premixed) 4 mg in 250 mls @ 15 mls/hr IV .[id number] PRN; Protocol; 4 MCG/MIN PRN Reason: TITRATE PER MD ORDER Last Titration: 03/29/17 09:45 Dose: 0 mcg/min, 0 mls/hr Piperacillin Sod/Tazobactam Sod (Zosyn 3.375 In Ns 100ml) 100 mls @ 200 mls/hr IVPB Q6 OMAR PRN Reason: Protocol Stop: 04/06/17 00:01 Last Admin: 03/31/17 05:42 Dose: 200 mls/hr Heparin Sodium/Dextrose (Heparin 25,000 Units/250ml In D5w) 25,000 units in 250 mls @ 10.475 mls/hr IV .[id number] PRN; Protocol; 18 UNITS/KG/HR PRN Reason: ADJUST RATE PER PROTOCOL Last Titration: 03/31/17 08:46 Dose: 12 units/kg/hr, 6.984 mls/hr Sodium Chloride (Sodium Chloride 0.9%) 1,000 mls @ 100 mls/hr IV .Q10H [facility] Morphine Sulfate (Morphine) 2 mg IVP Q4H PRN PRN Reason: Pain, severe (8-10) Last Admin: 03/29/17 18:56 Dose: 2 mg Ondansetron HCl (Zofran Inj) 4 mg IVP Q6H PRN PRN Reason: Nausea/Vomiting Pantoprazole Sodium (Protonix Inj) 40 mg IVP DAILY [facility] Last Admin: 03/30/17 09:27 Dose: 40 mg Quetiapine Fumarate (Seroquel) 12.5 mg PO HS OMAR PRN Reason: Protocol Last Admin: 03/28/17 22:00 Dose: Not Given - Labs Labs: 03/31/17 05:20 03/31/17 05:20 PT 14.6 Seconds (9.9-11.8) H 03/29/17 08:40 INR 1.35 (0.93-1.08) H 03/29/17 08:40 APTT > 180.0 Seconds (23.7-30.8) H* 03/31/17 05:20 - Constitutional Appears: Non-toxic, No Acute Distress, Confused, Chronically Ill - Eye Exam Eye Exam: PERRL - ENT Exam ENT Exam: Mucous Membranes Dry - Respiratory Exam Respiratory Exam: Decreased Breath Sounds. absent: Rales, Rhonchi, Wheezes - Cardiovascular Exam Cardiovascular Exam: RRR, +S1, +S2 - GI/Abdominal Exam GI & Abdominal Exam: Soft, Tenderness (improved, minimal), Normal Bowel Sounds. absent: Distended, Firm, Guarding, Rigid, Organomegaly - Extremities Exam Extremities Exam: Normal Inspection. absent: Pedal Edema - Neurological Exam Neurological Exam: Altered, Awake - Psychiatric Exam Psychiatric exam: Anxious - Skin Skin Exam: Dry, Warm Assessment and Plan - Assessment and Plan (Free Text) Assessment: Patient is a 81yo male with PMHx significant for CVA, vascular dementia, HTN, DM , chronic constipation who presented to the ED from [place] for worsening mentation, abdominal pain, nausea and vomiting. -Ischemic colitis, compromised SMA/RAINA s/p balloon angioplasty POD#1 -Constipation, likely a result of above -Dementia -HTN -DM Plan: -S/P balloon angioplasty with IR yesterday afternoon -Monitor right groin access site -Continue anticoagulation as ordered - heparin gtt -General surgery with no intent for intervention at this juncture -No plans for endoscopic evaluation at this time -No further recommendations at this time, will sign off. Thank you for allowing us to participate in the care of your patient. <Go Colvin - Last Filed: 03/31/17 14:05> Objective - Vital Signs/Intake and Output Vital Signs (last 24 hours): Temp Pulse Resp BP Pulse Ox 97.7 F 90 22 146/83 99 03/31/17 12:00 03/31/17 13:00 03/31/17 13:00 03/31/17 13:00 03/31/17 13:00 Intake and Output: 03/31/17 03/31/17 06:59 18:59 Intake Total 1901 0 Output Total 4200 Balance -2299 0 - Medications Medications: Current Medications Acetylcysteine (Acetylcysteine 20%) 3 ml PO BID OMAR Last Admin: 03/31/17 11:00 Dose: 3 ml NOREPINEPHRINE BIT/0.9 % NACL (Levophed 4 Mg/ 250 Ml Ns Premixed) 4 mg in 250 mls @ 15 mls/hr IV .[id number] PRN; Protocol; 4 MCG/MIN PRN Reason: TITRATE PER MD ORDER Last Titration: 03/29/17 09:45 Dose: 0 mcg/min, 0 mls/hr Piperacillin Sod/Tazobactam Sod (Zosyn 3.375 In Ns 100ml) 100 mls @ 200 mls/hr IVPB Q6 OMAR PRN Reason: Protocol Stop: 04/06/17 00:01 Last Admin: 03/31/17 13:20 Dose: 200 mls/hr Heparin Sodium/Dextrose (Heparin 25,000 Units/250ml In D5w) 25,000 units in 250 mls @ 10.475 mls/hr IV .[id number] PRN; Protocol; 18 UNITS/KG/HR PRN Reason: ADJUST RATE PER PROTOCOL Last Titration: 03/31/17 12:08 Dose: 9 units/kg/hr, 5.238 mls/hr Sodium Chloride (Sodium Chloride 0.9%) 1,000 mls @ 100 mls/hr IV .Q10H [facility] Morphine Sulfate (Morphine) 2 mg IVP Q4H PRN PRN Reason: Pain, severe (8-10) Last Admin: 03/29/17 18:56 Dose: 2 mg Ondansetron HCl (Zofran Inj) 4 mg IVP Q6H PRN PRN Reason: Nausea/Vomiting Pantoprazole Sodium (Protonix Inj) 40 mg IVP DAILY [facility] Last Admin: 03/31/17 09:19 Dose: 40 mg Quetiapine Fumarate (Seroquel) 12.5 mg PO HS OMAR PRN Reason: Protocol Last Admin: 03/28/17 22:00 Dose: Not Given - Labs Labs: 03/31/17 05:20 03/31/17 05:20 PT 14.6 Seconds (9.9-11.8) H 03/29/17 08:40 INR 1.35 (0.93-1.08) H 03/29/17 08:40 APTT 108.8 Seconds (23.7-30.8) H* 03/31/17 10:26 Attending/Attestation - Attestation I have personally seen and examined this patient.: Yes I have fully participated in the care of the patient.: Yes I have reviewed all pertinent clinical information, including history, physical exam and plan: Yes Notes (Text): 03/31/17 14:03 I have seen and examined patient with GI fellow. No acute events overnight. His abdominal discomfort has significantly improved following IR intervention. He denies abdominal pain, nausea, vomiting, fever/chills. Review of vitals from today are normal. CVA Dementia HTN / DM Mesenteric ischemia s/p IR guided angioplasty of RAINA/SMA Ischemic colitis - Advance diet slowly as tolerated - Continue with antibiotic therapy - Follow up vascular surgery recommendations regarding heparin infusion - No ongoing GI issues at this time, will sign off case. Please reconsult as necessary, thank you.
--- NOTE | 2017-03-31 09:28 | CP.PCM.PN ---
Subjective - Date & Time of Evaluation Date of Evaluation: 03/31/17 Time of Evaluation: 08:50 - Subjective Subjective: Comfortable in bed, afebrile, not in distress. Objective - Vital Signs/Intake and Output Vital Signs (last 24 hours): Temp Pulse Resp BP Pulse Ox 98.7 F 115 H 22 126/71 96 03/29/17 23:54 03/30/17 01:20 03/30/17 01:20 03/30/17 01:00 03/30/17 01:20 Intake and Output: 03/29/17 03/30/17 18:59 06:59 Intake Total 362.6 57.4 Output Total 400 Balance 362.6 -342.6 - Medications Medications: Current Medications NOREPINEPHRINE BIT/0.9 % NACL (Levophed 4 Mg/ 250 Ml Ns Premixed) 4 mg in 250 mls @ 15 mls/hr IV .[id number] PRN; Protocol; 4 MCG/MIN PRN Reason: TITRATE PER MD ORDER Last Titration: 03/29/17 09:45 Dose: 0 mcg/min, 0 mls/hr Sodium Chloride (Sodium Chloride 0.9%) 1,000 mls @ 125 mls/hr IV .Q8H OMAR Last Admin: 03/30/17 03:49 Dose: 125 mls/hr Vancomycin HCl (Vancomycin 1gm) 1 gm in 250 mls @ 167 mls/hr IVPB Q12H [facility] PRN Reason: Protocol Last Admin: 03/29/17 21:01 Dose: 167 mls/hr Piperacillin Sod/Tazobactam Sod (Zosyn 3.375 In Ns 100ml) 100 mls @ 200 mls/hr IVPB Q6 OMAR PRN Reason: Protocol Stop: 04/06/17 00:01 Last Admin: 03/29/17 23:20 Dose: 200 mls/hr Heparin Sodium/Dextrose (Heparin 25,000 Units/250ml In D5w) 25,000 units in 250 mls @ 10.475 mls/hr IV .[id number] PRN; Protocol; 18 UNITS/KG/HR PRN Reason: ADJUST RATE PER PROTOCOL Last Titration: 03/30/17 03:22 Dose: 0 units/kg/hr, 0 mls/hr Lactated Ringer's (Lactated Ringer's) 1,000 mls @ 999 mls/hr IV .Q1H1M [facility] Last Admin: 03/29/17 10:42 Dose: 999 mls/hr Morphine Sulfate (Morphine) 2 mg IVP Q4H PRN PRN Reason: Pain, severe (8-10) Last Admin: 03/29/17 18:56 Dose: 2 mg Ondansetron HCl (Zofran Inj) 4 mg IVP Q6H PRN PRN Reason: Nausea/Vomiting Pantoprazole Sodium (Protonix Inj) 40 mg IVP DAILY [facility] Last Admin: 03/29/17 09:13 Dose: 40 mg Quetiapine Fumarate (Seroquel) 12.5 mg PO HS [facility] PRN Reason: Protocol Last Admin: 03/28/17 22:00 Dose: Not Given - Labs Labs: 03/29/17 05:00 03/29/17 05:00 PT 14.6 Seconds (9.9-11.8) H 03/29/17 08:40 INR 1.35 (0.93-1.08) H 03/29/17 08:40 APTT > 180.0 Seconds (23.7-30.8) H* 03/30/17 03:30 - Constitutional Appears: Non-toxic, No Acute Distress - Head Exam Head Exam: NORMAL INSPECTION - Neck Exam Neck Exam: absent: Meningismus - Respiratory Exam Respiratory Exam: Decreased Breath Sounds - Cardiovascular Exam Cardiovascular Exam: +S1, +S2 - GI/Abdominal Exam GI & Abdominal Exam: Soft, Tenderness (mild, diffuse). absent: Distended, Guarding, Rigid, Rebound Assessment and Plan - Assessment and Plan (Free Text) Plan: Assessment Consider sepsis due to acute colitis with associated thickening of the amaya of the rectum, R/O intra-abdominal abscess; patient also has signs on fecal impaction on CT scan of the abdomen and pelvis and also has acute mesenteric ischemia associated with the superior and inferior mesenteric arteries; patient also has Strep bacteremia CVA chronic renal failure HTN macular degeneration DM history of urinary retention Plan continue Zosyn pending identification and sensitivities of the gram positive cocci in the blood cx - follow up repeat blood cx as well; will follow up GI and surgery evaluation will check 2D echo will continue to monitor clinically
--- NOTE | 2017-03-31 09:43 | RAD ---
HISTORY: Crackles in lungs/low SpO2 COMPARISON: 03/28/2017 FINDINGS: LUNGS: New bibasilar infiltrates and small effusions PLEURA: No significant pleural effusion identified, no pneumothorax apparent. CARDIOVASCULAR: Normal. OSSEOUS STRUCTURES: No significant abnormalities. VISUALIZED UPPER ABDOMEN: Normal. OTHER FINDINGS: None. IMPRESSION: New bibasilar infiltrates and small effusions
--- NOTE | 2017-03-31 09:43 | CP.PCM.PN ---
Subjective - Date & Time of Evaluation Date of Evaluation: 03/31/17 Time of Evaluation: 09:40 - Subjective Subjective: SURGERY NOTE FOR DR. HERNANDEZ 81M seen and examined at bedside. Patient slightly more awake this morning. CHELLY. Objective - Vital Signs/Intake and Output Vital Signs (last 24 hours): Temp Pulse Resp BP Pulse Ox 98.7 F 80 17 143/81 97 03/31/17 04:00 03/31/17 05:00 03/31/17 05:00 03/31/17 05:00 03/31/17 05:00 Intake and Output: 03/31/17 03/31/17 06:59 18:59 Intake Total 1901 0 Output Total 4200 Balance -2299 0 - Medications Medications: Current Medications Acetylcysteine (Acetylcysteine 20%) 3 ml PO BID O[facility] Last Admin: 03/30/17 21:59 Dose: 3 ml NOREPINEPHRINE BIT/0.9 % NACL (Levophed 4 Mg/ 250 Ml Ns Premixed) 4 mg in 250 mls @ 15 mls/hr IV .[id number] PRN; Protocol; 4 MCG/MIN PRN Reason: TITRATE PER MD ORDER Last Titration: 03/29/17 09:45 Dose: 0 mcg/min, 0 mls/hr Piperacillin Sod/Tazobactam Sod (Zosyn 3.375 In Ns 100ml) 100 mls @ 200 mls/hr IVPB Q6 O[facility] PRN Reason: Protocol Stop: 04/06/17 00:01 Last Admin: 03/31/17 05:42 Dose: 200 mls/hr Heparin Sodium/Dextrose (Heparin 25,000 Units/250ml In D5w) 25,000 units in 250 mls @ 10.475 mls/hr IV .[id number] PRN; Protocol; 18 UNITS/KG/HR PRN Reason: ADJUST RATE PER PROTOCOL Last Titration: 03/31/17 08:46 Dose: 12 units/kg/hr, 6.984 mls/hr Sodium Chloride (Sodium Chloride 0.9%) 1,000 mls @ 100 mls/hr IV .Q10H [facility] Morphine Sulfate (Morphine) 2 mg IVP Q4H PRN PRN Reason: Pain, severe (8-10) Last Admin: 03/29/17 18:56 Dose: 2 mg Ondansetron HCl (Zofran Inj) 4 mg IVP Q6H PRN PRN Reason: Nausea/Vomiting Pantoprazole Sodium (Protonix Inj) 40 mg IVP DAILY [facility] Last Admin: 03/31/17 09:19 Dose: 40 mg Quetiapine Fumarate (Seroquel) 12.5 mg PO HS O[facility] PRN Reason: Protocol Last Admin: 03/28/17 22:00 Dose: Not Given - Labs Labs: 03/31/17 05:20 03/31/17 05:20 PT 14.6 Seconds (9.9-11.8) H 03/29/17 08:40 INR 1.35 (0.93-1.08) H 03/29/17 08:40 APTT > 180.0 Seconds (23.7-30.8) H* 03/31/17 05:20 - Respiratory Exam Respiratory Exam: Rhonchi, NORMAL BREATHING PATTERN - Cardiovascular Exam Cardiovascular Exam: REGULAR RHYTHM, +S1, +S2 - GI/Abdominal Exam GI & Abdominal Exam: Tenderness Additional comments: abdominal exam- abdomen less firm and rigid, patient continues to complain of moderate tenderness on palpation. states "dont push" during physical exam - Extremities Exam Extremities Exam: absent: Pedal Edema, Tenderness - Neurological Exam Additional comments: less altered, will respond if spoken to loudly - Skin Skin Exam: Dry, Intact, Normal Color, Warm Assessment and Plan - Assessment and Plan (Free Text) Assessment: 81M presents with ischemic colitis 2/2 SMS/RAINA occlusion. s/p SMA/RAINA angioplasty POD1 Plan: - Serial abdominal exams - continue heparin as per IR 24-72hrs post intervention - monitor labs/vitals (WBC/Cr/Lactate) - No surgical intervention at this time. Further recs discuss with Dr. Easton Turner, PGY2
[2017-03-31] MEDS: Acetylcysteine 20% Inhal Soln (4ml) PO SCH ×2 (11:00→18:00)
--- NOTE | 2017-03-31 16:33 | CP.PCM.PN ---
<KIRSTIN GRAY - Last Filed: 03/31/17 17:37> Subjective - Date & Time of Evaluation Date of Evaluation: 03/31/17 Time of Evaluation: 10:00 - Subjective Subjective: PGY1 ICU Progress Note: Pt seen and examined at bedside. S/p SMA/RAINA angioplasty with balloon dilation yesterday. Overnight, pt was on NS @200/h, developed crackles and low Spo2 80%, stopped IVF. This AM, pt is awake, at baseline mentation status, denies pain. Objective - Vital Signs/Intake and Output Vital Signs (last 24 hours): Temp Pulse Resp BP Pulse Ox 97.7 F 79 15 137/79 99 03/31/17 12:00 03/31/17 15:00 03/31/17 15:00 03/31/17 15:00 03/31/17 15:00 Intake and Output: 03/31/17 03/31/17 06:59 18:59 Intake Total 1901 0 Output Total 4200 Balance -2299 0 - Medications Medications: Current Medications Acetylcysteine (Acetylcysteine 20%) 3 ml PO BID OMAR Last Admin: 03/31/17 11:00 Dose: 3 ml NOREPINEPHRINE BIT/0.9 % NACL (Levophed 4 Mg/ 250 Ml Ns Premixed) 4 mg in 250 mls @ 15 mls/hr IV .[id number] PRN; Protocol; 4 MCG/MIN PRN Reason: TITRATE PER MD ORDER Last Titration: 03/29/17 09:45 Dose: 0 mcg/min, 0 mls/hr Piperacillin Sod/Tazobactam Sod (Zosyn 3.375 In Ns 100ml) 100 mls @ 200 mls/hr IVPB Q6 OMAR PRN Reason: Protocol Stop: 04/06/17 00:01 Last Admin: 03/31/17 13:20 Dose: 200 mls/hr Heparin Sodium/Dextrose (Heparin 25,000 Units/250ml In D5w) 25,000 units in 250 mls @ 10.475 mls/hr IV .[id number] PRN; Protocol; 18 UNITS/KG/HR PRN Reason: ADJUST RATE PER PROTOCOL Last Titration: 03/31/17 12:08 Dose: 9 units/kg/hr, 5.238 mls/hr Sodium Chloride (Sodium Chloride 0.9%) 1,000 mls @ 100 mls/hr IV .Q10H OMAR Morphine Sulfate (Morphine) 2 mg IVP Q4H PRN PRN Reason: Pain, severe (8-10) Last Admin: 03/29/17 18:56 Dose: 2 mg Ondansetron HCl (Zofran Inj) 4 mg IVP Q6H PRN PRN Reason: Nausea/Vomiting Pantoprazole Sodium (Protonix Inj) 40 mg IVP DAILY [facility] Last Admin: 03/31/17 09:19 Dose: 40 mg Quetiapine Fumarate (Seroquel) 12.5 mg PO HS OMAR PRN Reason: Protocol Last Admin: 03/28/17 22:00 Dose: Not Given - Labs Labs: 03/31/17 05:20 03/31/17 05:20 PT 14.6 Seconds (9.9-11.8) H 03/29/17 08:40 INR 1.35 (0.93-1.08) H 03/29/17 08:40 APTT 108.8 Seconds (23.7-30.8) H* 03/31/17 10:26 - Constitutional Appears: No Acute Distress - Head Exam Head Exam: ATRAUMATIC, NORMOCEPHALIC - Eye Exam Eye Exam: PERRL - ENT Exam ENT Exam: Mucous Membranes Moist - Respiratory Exam Additional comments: Crackles RUL, bilateral lower lobes. - Cardiovascular Exam Cardiovascular Exam: RRR, +S1, +S2. absent: Gallop, Rubs, Murmur - GI/Abdominal Exam GI & Abdominal Exam: Soft, Normal Bowel Sounds. absent: Distended, Guarding, Rigid, Tenderness - Extremities Exam Extremities Exam: absent: Pedal Edema, Tenderness - Neurological Exam Neurological Exam: Alert, Awake - Skin Skin Exam: Dry, Intact, Pallor, Warm Assessment and Plan - Assessment and Plan (Free Text) Assessment: 81M with hx dementia, several CVAs, admitted to ICU for distributive shock 2/2 likely ischemic colitis and Strep mitis bacteremia, s/p SMA/RAINA angioplasty with balloon dilation, on heparin drip. Palliative on board, full code currently , will f/u with daughter and . Plan: Neuro: Septic encephalopathy improving, currently baseline mentation status. Awake, not oriented to person, place and time. Cont to monitor. Hold home med seroquel. CV: initially, pt hypotensive BP 70's/30's, started on levophed, s/p 5L IVF bolus, off pressors, BP stable. NSR, Cont to monitor. Pulmonary: On 5L NC, saturating well. Cont to monitor. Keep head of bed elevated. Aspiration precautions will be continued. GI: s/p SMA and RAINA angioplasty with balloon dilation by Dr. Pardo. Colitis. +BS, abdominal exam benign today, Bedside swallow. May start soft diet. C/w IV abx, Heparin drip, protonix. Zofran prn nausea Cont to monitor. Renal: ELISEO, Elevated Cr 1.5, Urine culture results pending. Maintain euvolemia, replace lytes. UO 4500 ml/12h. Urology: Urology consulted due to difficult bernabe insertion on admission, bernabe cath draining urine. Endocrine: HgbA1c 5.5. BG 62-133. maintain euglycemia. TSH 1.4. ID: afebrile, leukocytosis imrpoving 16.7->8.7 today. Blood cultures 1/2 shows Strep mitis, c/w Vanc and Zosyn. Echo shows no vegetation or thrombus. F/u repeat Blood cultures ESR, CRP elevated. Urine cultures ntd. C diff toxin and antigen negative. ID on board. will f/u recs. Hematology: Hgb 12->>9.0 today. No melena or overt signs of bleeding. Cont to trend. DVT PPX: hep drip GI PPX: Protonix Case discussed and reviewed with PGY2 and attending, Dr. Shen. Kirstin Gray, PGY1 <Hermelinda MCCORMACK,Jenifermaris H - Last Filed: 03/31/17 17:48> Objective - Vital Signs/Intake and Output Vital Signs (last 24 hours): Temp Pulse Resp BP Pulse Ox 98.8 F 87 12 138/84 99 03/31/17 16:00 03/31/17 17:02 03/31/17 17:02 03/31/17 17:00 03/31/17 15:00 Intake and Output: 03/31/17 03/31/17 06:59 18:59 Intake Total 1901 0 Output Total 4200 Balance -2299 0 - Medications Medications: Current Medications Acetylcysteine (Acetylcysteine 20%) 3 ml PO BID [facility] Last Admin: 03/31/17 11:00 Dose: 3 ml NOREPINEPHRINE BIT/0.9 % NACL (Levophed 4 Mg/ 250 Ml Ns Premixed) 4 mg in 250 mls @ 15 mls/hr IV .[id number] PRN; Protocol; 4 MCG/MIN PRN Reason: TITRATE PER MD ORDER Last Titration: 03/29/17 09:45 Dose: 0 mcg/min, 0 mls/hr Piperacillin Sod/Tazobactam Sod (Zosyn 3.375 In Ns 100ml) 100 mls @ 200 mls/hr IVPB Q6 OMAR PRN Reason: Protocol Stop: 04/06/17 00:01 Last Admin: 03/31/17 17:44 Dose: 200 mls/hr Heparin Sodium/Dextrose (Heparin 25,000 Units/250ml In D5w) 25,000 units in 250 mls @ 10.475 mls/hr IV .[id number] PRN; Protocol; 18 UNITS/KG/HR PRN Reason: ADJUST RATE PER PROTOCOL Last Titration: 03/31/17 12:08 Dose: 9 units/kg/hr, 5.238 mls/hr Sodium Chloride (Sodium Chloride 0.9%) 1,000 mls @ 100 mls/hr IV .Q10H OMAR Morphine Sulfate (Morphine) 2 mg IVP Q4H PRN PRN Reason: Pain, severe (8-10) Last Admin: 03/29/17 18:56 Dose: 2 mg Ondansetron HCl (Zofran Inj) 4 mg IVP Q6H PRN PRN Reason: Nausea/Vomiting Pantoprazole Sodium (Protonix Inj) 40 mg IVP DAILY [facility] Last Admin: 03/31/17 09:19 Dose: 40 mg Quetiapine Fumarate (Seroquel) 12.5 mg PO HS OMAR PRN Reason: Protocol Last Admin: 03/28/17 22:00 Dose: Not Given - Labs Labs: 03/31/17 05:20 03/31/17 05:20 PT 14.6 Seconds (9.9-11.8) H 03/29/17 08:40 INR 1.35 (0.93-1.08) H 03/29/17 08:40 APTT 108.8 Seconds (23.7-30.8) H* 03/31/17 10:26 Attending/Attestation - Attestation I have personally seen and examined this patient.: Yes I have fully participated in the care of the patient.: Yes I have reviewed all pertinent clinical information, including history, physical exam and plan: Yes Notes (Text): 03/31/17 17:46 81 y/o M s/p SMA vascular angio on heparin drip currently. Pt's abd pain has improved, Mental status has returned to his baseline dementia. Pt also is being treated with ABX for his colitis. Blood cx x 1 bottle Strep, on empiric treatment. Repeat cx negative. Blood pressure WNL. No acute intervention planned. Palliative care consulted . cc time 54 min
--- NOTE | 2017-03-31 19:16 | PN ---
DATE: 03/31/2017SUBJECTIVE: The patient is confused. He denies any pain. He is able to open his eyes. Follows simple commands. PHYSICAL EXAMINATION: VITAL SIGNS: Temperature is 98.8, pulse of 80, blood pressure is 143/81, respirations 17. HEENT: Atraumatic and normocephalic. Anicteric sclerae. Moist mucosa. NECK: No JVD, adenopathy, or thyromegaly. CARDIOVASCULAR: S1, S2 is regular. No murmur, rubs, or gallops. RESPIRATIONS: Clear to auscultation bilaterally. No wheezes or rales. ABDOMEN: Bowel sounds are positive, is soft and mild tenderness to palpation. No rebound. No guarding. LABS: White count of 8.7, hemoglobin 9. Creatinine 1.5, bicarbonate is 15. ASSESSMENT: 1. Abdominal pain, secondary to mesenteric ischemia status post angioplasty of superior mesenteric artery and inferior mesenteric artery. 2. Septic shock. 3. Dementia, Alzheimer's type. 4. Delirium. 5. Constipation. 6. Spleen lesions. 7. Right pelvic fluid collection. 8. Remove of right femoral TLC. 9. Acute kidney injury. 10. FULL CODE. PLAN: The patient is currently on acetylcysteine. The patient is on heparin for anticoagulation. He is getting morphine for pain. The patient is off his Levophed. He is on Seroquel. He is on antibiotics Zosyn. I did call the patient's this morning to give an update. We will repeat the patient's labs. Jakob Newman MD
[2017-04-01] MEDS: Piperacillin/Tazobact 3.375 gm 100 ML IVPB SCH ×5 (00:30→23:09)
[2017-04-01] MEDS: Heparin 25,000units in D5W 25,000 UNITS/250 ML BAG IV PRN (02:35)
[2017-04-01 06:02] LABS: CALCIUM 7.2 mg/dL (8.4-10.5)
[2017-04-01 06:09] LABS: BASO # 0.02 K/mm3 (0.0-2.0); BASO % 0.2 % (0.0-3.0); EOS # 0.1 (0.0-0.7); EOS % 0.7 % (1.5-5.0); GRAN # 6.89 (1.4-6.5); GRAN % 77.4 % (50.0-68.0); HEMOGLOBIN 8.6 gm/dL (14.0-18.0); LYMPH # 1.1 (1.2-3.4); LYMPH % 12.7 % (22.0-35.0); MEAN CELL VOLUME 84.5 fL (80.0-105.0); MEAN CORPUSCULAR HGB CONC 34.3 g/dl (31.0-37.0); MEAN PLATELET VOLUME 10.1 fl (7.0-11.0); MONO # 0.8 (0.1-0.6); PLATELET COUNT 186 10^3/uL (120.0-450.0); RBC 2.97 10^6/uL (3.5-6.1); RED CELL DISTRIBUTION WIDTH 14.1 % (11.5-14.5); WHITE BLOOD COUNT 8.9 10^3/ul (4.5-11.0)
[2017-04-01] MEDS: Acetylcysteine 20% Inhal Soln (4ml) PO SCH ×2 (09:46→17:54)
--- NOTE | 2017-04-01 10:08 | CP.PCM.PN ---
Subjective - Date & Time of Evaluation Date of Evaluation: 04/01/17 Time of Evaluation: 09:50 - Subjective Subjective: Comfortable in bed, more alert today, afebrile overnight. Objective - Vital Signs/Intake and Output Vital Signs (last 24 hours): Temp Pulse Resp BP Pulse Ox 98.8 F 77 16 138/74 91 L 03/31/17 16:00 04/01/17 06:00 04/01/17 06:00 04/01/17 06:00 04/01/17 06:00 Intake and Output: 04/01/17 04/01/17 06:59 18:59 Intake Total 420 Output Total 1000 Balance -580 - Medications Medications: Current Medications Acetylcysteine (Acetylcysteine 20%) 3 ml PO BID OMAR Last Admin: 03/31/17 18:00 Dose: Not Given NOREPINEPHRINE BIT/0.9 % NACL (Levophed 4 Mg/ 250 Ml Ns Premixed) 4 mg in 250 mls @ 15 mls/hr IV .[id number] PRN; Protocol; 4 MCG/MIN PRN Reason: TITRATE PER MD ORDER Last Titration: 03/29/17 09:45 Dose: 0 mcg/min, 0 mls/hr Piperacillin Sod/Tazobactam Sod (Zosyn 3.375 In Ns 100ml) 100 mls @ 200 mls/hr IVPB Q6 OMAR PRN Reason: Protocol Stop: 04/06/17 00:01 Last Admin: 04/01/17 00:30 Dose: 200 mls/hr Heparin Sodium/Dextrose (Heparin 25,000 Units/250ml In D5w) 25,000 units in 250 mls @ 10.475 mls/hr IV .[id number] PRN; Protocol; 18 UNITS/KG/HR PRN Reason: ADJUST RATE PER PROTOCOL Last Admin: 04/01/17 02:35 Dose: 9 units/kg/hr, 5.238 mls/hr Sodium Chloride (Sodium Chloride 0.9%) 1,000 mls @ 100 mls/hr IV .Q10H OMAR Morphine Sulfate (Morphine) 2 mg IVP Q4H PRN PRN Reason: Pain, severe (8-10) Last Admin: 03/29/17 18:56 Dose: 2 mg Ondansetron HCl (Zofran Inj) 4 mg IVP Q6H PRN PRN Reason: Nausea/Vomiting Pantoprazole Sodium (Protonix Inj) 40 mg IVP DAILY [facility] Last Admin: 03/31/17 09:19 Dose: 40 mg Quetiapine Fumarate (Seroquel) 12.5 mg PO HS OMAR PRN Reason: Protocol Last Admin: 03/28/17 22:00 Dose: Not Given - Labs Labs: 04/01/17 05:30 04/01/17 05:30 PT 14.6 Seconds (9.9-11.8) H 03/29/17 08:40 INR 1.35 (0.93-1.08) H 03/29/17 08:40 APTT 54.7 Seconds (23.7-30.8) H 04/01/17 00:50 - Constitutional Appears: Non-toxic, No Acute Distress - Head Exam Head Exam: NORMAL INSPECTION - Neck Exam Neck Exam: absent: Meningismus - Respiratory Exam Respiratory Exam: Decreased Breath Sounds - Cardiovascular Exam Cardiovascular Exam: +S1, +S2 - GI/Abdominal Exam GI & Abdominal Exam: Soft. absent: Tenderness Assessment and Plan - Assessment and Plan (Free Text) Plan: Assessment Consider sepsis due to acute colitis with associated thickening of the amaya of the rectum, R/O intra-abdominal abscess; patient also has signs on fecal impaction on CT scan of the abdomen and pelvis and also has acute mesenteric ischemia associated with the superior and inferior mesenteric arteries; patient also has Strep mitis bacteremia which is not persistent and the 2D echo is negative for vegetations CVA chronic renal failure HTN macular degeneration DM history of urinary retention Plan continue Zosyn - repeat blood cx are negative; follow up GI and surgery further recommendations 2D echo does not show vegetations will continue to monitor clinically
--- NOTE | 2017-04-01 10:38 | CP.PCM.PN ---
Subjective - Date & Time of Evaluation Date of Evaluation: 04/01/17 Time of Evaluation: 10:35 - Subjective Subjective: General Surgery Note: Resident: Roberto Attending: [place]on HPI: Patient seen and examined at bedside. He is mentating much better but still hard to communicate with. He is not complaining of any more pain. Ángel diet. Objective - Vital Signs/Intake and Output Vital Signs (last 24 hours): Temp Pulse Resp BP Pulse Ox 98.8 F 77 16 138/74 91 L 03/31/17 16:00 04/01/17 06:00 04/01/17 06:00 04/01/17 06:00 04/01/17 06:00 Intake and Output: 04/01/17 04/01/17 06:59 18:59 Intake Total 420 Output Total 1000 Balance -580 - Medications Medications: Current Medications Acetylcysteine (Acetylcysteine 20%) 3 ml PO BID OMAR Last Admin: 04/01/17 09:46 Dose: 3 ml NOREPINEPHRINE BIT/0.9 % NACL (Levophed 4 Mg/ 250 Ml Ns Premixed) 4 mg in 250 mls @ 15 mls/hr IV .[id number] PRN; Protocol; 4 MCG/MIN PRN Reason: TITRATE PER MD ORDER Last Titration: 03/29/17 09:45 Dose: 0 mcg/min, 0 mls/hr Piperacillin Sod/Tazobactam Sod (Zosyn 3.375 In Ns 100ml) 100 mls @ 200 mls/hr IVPB Q6 OMAR PRN Reason: Protocol Stop: 04/06/17 00:01 Last Admin: 04/01/17 07:00 Dose: 200 mls/hr Heparin Sodium/Dextrose (Heparin 25,000 Units/250ml In D5w) 25,000 units in 250 mls @ 10.475 mls/hr IV .[id number] PRN; Protocol; 18 UNITS/KG/HR PRN Reason: ADJUST RATE PER PROTOCOL Last Admin: 04/01/17 02:35 Dose: 9 units/kg/hr, 5.238 mls/hr Sodium Chloride (Sodium Chloride 0.9%) 1,000 mls @ 100 mls/hr IV .Q10H OMAR Morphine Sulfate (Morphine) 2 mg IVP Q4H PRN PRN Reason: Pain, severe (8-10) Last Admin: 03/29/17 18:56 Dose: 2 mg Ondansetron HCl (Zofran Inj) 4 mg IVP Q6H PRN PRN Reason: Nausea/Vomiting Pantoprazole Sodium (Protonix Inj) 40 mg IVP DAILY [facility] Last Admin: 04/01/17 09:43 Dose: 40 mg Quetiapine Fumarate (Seroquel) 12.5 mg PO HS OMAR PRN Reason: Protocol Last Admin: 03/28/17 22:00 Dose: Not Given - Labs Labs: 04/01/17 05:30 04/01/17 05:30 PT 14.6 Seconds (9.9-11.8) H 03/29/17 08:40 INR 1.35 (0.93-1.08) H 03/29/17 08:40 APTT 54.7 Seconds (23.7-30.8) H 04/01/17 00:50 - Constitutional Appears: Non-toxic - Head Exam Head Exam: ATRAUMATIC - Eye Exam Eye Exam: EOMI - ENT Exam ENT Exam: Mucous Membranes Moist, Normal Exam - GI/Abdominal Exam GI & Abdominal Exam: Soft. absent: Firm, Guarding, Tenderness, Rebound - Neurological Exam Neurological Exam: Alert, Awake Assessment and Plan - Assessment and Plan (Free Text) Assessment: 81 y/o demented WM s/p angioplasty * Medical Management per ICU * Cont heparin dreli Mejia PGY-1
--- NOTE | 2017-04-01 10:55 | PN ---
DATE: 03/30/2017 The patient has no complaints of chest pain. No shortness of breath. He is confused. PHYSICAL EXAMINATION VITAL SIGNS: Temperature is 99, pulse 120, blood pressure is 146/76, respirations 12. HEENT: Anicteric sclerae, moist mucosa. NECK: No JVD. No adenopathy. No bruits. CARDIOVASCULAR: S1, S2, regular. No murmurs, rubs or gallops. *------* tachycardia. RESPIRATORY: Good bilateral air entry. No wheezes or rales. ABDOMEN: Bowel sounds are positive as well as nontender. No rebound. ASSESSMENT: 1. Septic shock. 2. Dementia, Alzheimer's type. 3. Fluid collection in right pelvis. 4. Spleen lesion. 5. Constipation. 6. Delirium. PLAN: The patient is septic. Clinically, the patient is improving. He is on Levophed. The patient is on morphine for pain. He is on heparin, so we continued. The patient has 2.4 L of intake and 1.6 L of output. The patient is on Protonix and Zosyn for antibiotics. The patient is a full code. Jakob Newman MD
--- NOTE | 2017-04-01 17:20 | PN ---
DATE: 04/01/2017 SUBJECTIVE: The patient is resting in bed, very comfortable on O2 via nasal cannula, O2 saturation at 96%. No distress. PHYSICAL EXAMINATION: VITAL SIGNS: His pulse is 77, respirations are 16, BP is 138/74 and patient is afebrile. HEENT: Head is atraumatic, normocephalic. Eyes are reactive to light. Ears, nose and throat seem to be within normal limits. NECK: Supple. No JVD. No thyroid enlargement. No lymph nodes. HEART: Regular rate and rhythm. Normal S1, S2. LUNGS: Reveal mild decreased breath sounds at the bases. ABDOMEN: Soft, nontender, decreased bowel sounds. GENITALIA AND RECTUM: Deferred. MUSCULOSKELETAL: No joint deformities. EXTREMITIES: Reveal trace lower extremity edema. NEUROLOGIC: The patient is very demented but moving all extremities well. LABORATORY DATA: As far as laboratories are concerned, white count is 8.9, hemoglobin is 8.6, hematocrit 25.1 with platelets of 186,000. Sodium is 146, potassium 3.1, chloride 118, CO2 of 19 with a BUN of 31, creatinine of 1.5 and glucose of 72. IMPRESSION: As far as my impression, this patient has history of dementia as well as several cerebrovascular accidents in the past. The patient presented with ischemic colitis with a streptococcal bacteremia as well. The patient is status post superior mesenteric artery/inferior mesenteric artery angioplasty with balloon dilatation. At this time, he is on anticoagulants. It is noted that he has anemia and chest x-ray did show lower lobe possible infiltrates and small pleural effusions. PLAN: As far as our plan, he will continue with heparin and roll changer to Eliquis. The patient is on Zosyn for antibiotics and is getting IV fluids as well. He is getting Protonix and at this time, we will continue to follow closely and treat aggressively along with the other consultants and the primary care doctor. Torey Jean MD
[2017-04-02] MEDS: Piperacillin/Tazobact 3.375 gm 100 ML IVPB SCH ×4 (05:05→23:59)
--- NOTE | 2017-04-02 05:22 | CP.PCM.PCO ---
Physician Communication Note - Physician Communication Note Physician Communication Note: Pt's vitals consistently stable; Thus, order for transfer to tele placed
[2017-04-02 05:57] LABS: BASO # 0.02 K/mm3 (0.0-2.0); BASO % 0.3 % (0.0-3.0); EOS # 0.3 (0.0-0.7); EOS % 4.3 % (1.5-5.0); GRAN # 5.41 (1.4-6.5); HEMOGLOBIN 8.1 gm/dL (14.0-18.0); LYMPH # 1.3 (1.2-3.4); LYMPH % 16.5 % (22.0-35.0); MEAN CELL VOLUME 83.5 fL (80.0-105.0); MEAN CORPUSCULAR HGB CONC 34.8 g/dl (31.0-37.0); MEAN PLATELET VOLUME 10.2 fl (7.0-11.0); MONO # 0.7 (0.1-0.6); MONO % 8.9 % (1.0-6.0); PLATELET COUNT 187 10^3/uL (120.0-450.0); RBC 2.79 10^6/uL (3.5-6.1); RED CELL DISTRIBUTION WIDTH 14.1 % (11.5-14.5); WHITE BLOOD COUNT 7.7 10^3/ul (4.5-11.0)
[2017-04-02 06:32] LABS: CALCIUM 7.2 mg/dL (8.4-10.5)
--- NOTE | 2017-04-02 07:22 | CP.PCM.PN ---
Subjective - Date & Time of Evaluation Date of Evaluation: 04/02/17 Time of Evaluation: 07:19 - Subjective Subjective: General Surgery Progress Note: Resident: Roberto Attending: [place] HPI: Pt seen and examined this morning. Doing well. No complaints at this time. Mentating much better. Able to respond to questions appropriately. Denies any pain. Tolerating diet. Objective - Vital Signs/Intake and Output Vital Signs (last 24 hours): Temp Pulse Resp BP Pulse Ox 98.8 F 80 14 127/67 100 04/02/17 04:00 04/02/17 05:48 04/02/17 05:48 04/02/17 05:00 04/02/17 05:00 Intake and Output: 04/02/17 04/02/17 06:59 18:59 Intake Total 380 Output Total 300 Balance 80 - Medications Medications: Current Medications Acetylcysteine (Acetylcysteine 20%) 3 ml PO BID OMAR Last Admin: 04/01/17 17:54 Dose: Not Given NOREPINEPHRINE BIT/0.9 % NACL (Levophed 4 Mg/ 250 Ml Ns Premixed) 4 mg in 250 mls @ 15 mls/hr IV .[id number] PRN; Protocol; 4 MCG/MIN PRN Reason: TITRATE PER MD ORDER Last Titration: 03/29/17 09:45 Dose: 0 mcg/min, 0 mls/hr Piperacillin Sod/Tazobactam Sod (Zosyn 3.375 In Ns 100ml) 100 mls @ 200 mls/hr IVPB Q6 OMAR PRN Reason: Protocol Stop: 04/06/17 00:01 Last Admin: 04/02/17 05:05 Dose: 200 mls/hr Heparin Sodium/Dextrose (Heparin 25,000 Units/250ml In D5w) 25,000 units in 250 mls @ 10.475 mls/hr IV .[id number] PRN; Protocol; 18 UNITS/KG/HR PRN Reason: ADJUST RATE PER PROTOCOL Last Admin: 04/01/17 02:35 Dose: 9 units/kg/hr, 5.238 mls/hr Sodium Chloride (Sodium Chloride 0.9%) 1,000 mls @ 100 mls/hr IV .Q10H OMAR Morphine Sulfate (Morphine) 2 mg IVP Q4H PRN PRN Reason: Pain, severe (8-10) Last Admin: 03/29/17 18:56 Dose: 2 mg Ondansetron HCl (Zofran Inj) 4 mg IVP Q6H PRN PRN Reason: Nausea/Vomiting Pantoprazole Sodium (Protonix Inj) 40 mg IVP DAILY [facility] Last Admin: 04/01/17 09:43 Dose: 40 mg Quetiapine Fumarate (Seroquel) 12.5 mg PO HS [facility] PRN Reason: Protocol Last Admin: 03/28/17 22:00 Dose: Not Given - Labs Labs: 04/02/17 05:00 04/02/17 05:00 PT 14.6 Seconds (9.9-11.8) H 03/29/17 08:40 INR 1.35 (0.93-1.08) H 03/29/17 08:40 APTT 46.7 Seconds (23.7-30.8) H 04/02/17 05:00 - Constitutional Appears: Well - Head Exam Head Exam: NORMAL INSPECTION - Eye Exam Eye Exam: EOMI - ENT Exam ENT Exam: Mucous Membranes Moist - Respiratory Exam Respiratory Exam: Clear to Ausculation Bilateral - Cardiovascular Exam Cardiovascular Exam: REGULAR RHYTHM - GI/Abdominal Exam GI & Abdominal Exam: Firm (more firm than yesterday). absent: Distended, Guarding, Tenderness - Neurological Exam Neurological Exam: Alert, Awake. absent: Oriented x3 Assessment and Plan - Assessment and Plan (Free Text) Assessment: 81 y/o demented WM s/p angioplasty * Cont Zosyn per ID * Continue serial abdominal exams * Cont. Heparin drip * Pain: Morphine * GI ppx: Protonix * Diet: Dysphagia Diet * Will Discuss plan with Dr. [place]on Mejia DO PGY-1
[2017-04-02] MEDS: Heparin 25,000units in D5W 25,000 UNITS/250 ML BAG IV PRN ×2 (09:15→18:35)
[2017-04-02] MEDS: Acetylcysteine 20% Inhal Soln (4ml) PO SCH ×2 (11:08→18:22)
--- NOTE | 2017-04-02 13:01 | CP.PCM.PN ---
Subjective - Date & Time of Evaluation Date of Evaluation: 04/02/17 Time of Evaluation: 10:15 - Subjective Subjective: Comfortable in bed, not in distress, afebrile. Objective - Vital Signs/Intake and Output Vital Signs (last 24 hours): Temp Pulse Resp BP Pulse Ox 98.8 F 80 14 127/67 100 04/02/17 04:00 04/02/17 05:48 04/02/17 05:48 04/02/17 05:00 04/02/17 05:00 Intake and Output: 04/02/17 04/02/17 06:59 18:59 Intake Total 380 Output Total 300 Balance 80 - Medications Medications: Current Medications Acetylcysteine (Acetylcysteine 20%) 3 ml PO BID [facility] Last Admin: 04/01/17 17:54 Dose: Not Given NOREPINEPHRINE BIT/0.9 % NACL (Levophed 4 Mg/ 250 Ml Ns Premixed) 4 mg in 250 mls @ 15 mls/hr IV .[id number] PRN; Protocol; 4 MCG/MIN PRN Reason: TITRATE PER MD ORDER Last Titration: 03/29/17 09:45 Dose: 0 mcg/min, 0 mls/hr Piperacillin Sod/Tazobactam Sod (Zosyn 3.375 In Ns 100ml) 100 mls @ 200 mls/hr IVPB Q6 OMAR PRN Reason: Protocol Stop: 04/06/17 00:01 Last Admin: 04/02/17 05:05 Dose: 200 mls/hr Heparin Sodium/Dextrose (Heparin 25,000 Units/250ml In D5w) 25,000 units in 250 mls @ 10.475 mls/hr IV .[id number] PRN; Protocol; 18 UNITS/KG/HR PRN Reason: ADJUST RATE PER PROTOCOL Last Admin: 04/01/17 02:35 Dose: 9 units/kg/hr, 5.238 mls/hr Sodium Chloride (Sodium Chloride 0.9%) 1,000 mls @ 100 mls/hr IV .Q10H OMAR Morphine Sulfate (Morphine) 2 mg IVP Q4H PRN PRN Reason: Pain, severe (8-10) Last Admin: 03/29/17 18:56 Dose: 2 mg Ondansetron HCl (Zofran Inj) 4 mg IVP Q6H PRN PRN Reason: Nausea/Vomiting Pantoprazole Sodium (Protonix Inj) 40 mg IVP DAILY [facility] Last Admin: 04/01/17 09:43 Dose: 40 mg Quetiapine Fumarate (Seroquel) 12.5 mg PO HS OMAR PRN Reason: Protocol Last Admin: 03/28/17 22:00 Dose: Not Given - Labs Labs: 04/02/17 05:00 04/02/17 05:00 PT 14.6 Seconds (9.9-11.8) H 03/29/17 08:40 INR 1.35 (0.93-1.08) H 03/29/17 08:40 APTT 46.7 Seconds (23.7-30.8) H 04/02/17 05:00 - Constitutional Appears: Non-toxic, No Acute Distress - Head Exam Head Exam: NORMAL INSPECTION - Neck Exam Neck Exam: absent: Lymphadenopathy, Meningismus - Respiratory Exam Respiratory Exam: Decreased Breath Sounds - Cardiovascular Exam Cardiovascular Exam: +S1, +S2 - GI/Abdominal Exam GI & Abdominal Exam: Soft. absent: Tenderness Assessment and Plan - Assessment and Plan (Free Text) Plan: Assessment Consider sepsis due to acute colitis with associated thickening of the amaya of the rectum, R/O intra-abdominal abscess; patient also has signs on fecal impaction on CT scan of the abdomen and pelvis and also has acute mesenteric ischemia associated with the superior and inferior mesenteric arteries; patient also has Strep mitis bacteremia which is not persistent and the 2D echo is negative for vegetations CVA chronic renal failure HTN macular degeneration DM history of urinary retention Plan continue Zosyn (day 5) - repeat blood cx are negative; follow up GI and surgery further recommendations 2D echo does not show vegetations will continue to monitor clinically
--- NOTE | 2017-04-02 14:48 | PN ---
SUBJECTIVE: The patient is a 81-year-old seen and examined in ICU. He is sleepy and lethargic; however, opened eyes on verbal command. Not in any acute distress. No nausea or vomiting. No diarrhea. His appetite is poor as per nurse. PHYSICAL EXAMINATION: VITAL SIGNS: He is afebrile, pulse 71, respirations 20 and blood pressure 120/65. LUNGS: Bilateral fair air flow. No rhonchi or crackle. HEART: S1 and S2 audible. ABDOMEN: Soft, nontender. No rebound. No guarding. NEUROLOGIC: He is sleepy, but arousable. Has generalized weakness. EXTREMITIES: Bilateral legs, no edema. LABORATORY DATA: WBC 8.9, hemoglobin 8.6, hematocrit 25 and platelets of 186. His PTT is 54.7. Chemistry; sodium 126, potassium 3.1, chloride 118, CO2 of 19, BUN 31, creatinine 1.5 and blood sugar of 175. His blood cultures are positive for Streptococcus mitis; however, repeat cultures are negative. Stool for C. diff is negative. ASSESSMENT: 1. Sepsis with Streptococcus mitis related to gastrointestinal source. 2. Mesenteric ischemia, status post echocardiogram, negative for endocarditis. 3. Acute on chronic renal failure. 4. Hypertension. 5. Ual-zpfozmb-xkjwffeje diabetes. 6. Status post angioplasty for superior mesenteric artery and inferior mesenteric artery, improving septic shock. 7. Status post fecal impaction. PLAN: Currently, the patient is being followed by surgeon, infectious disease specialist, and urologist. He is on IV heparin. He is on IV Protonix, getting Seroquel. He was on IV fluid, but that is on hold because of her chest congestion. He is getting Zosyn. The patient is hypokalemic and he was given 2 *------* of potassium chloride. We will follow up CBC and CMP in a.m. Continue current antibiotics. The patient is full code, and we will follow up CBC and CMP in a.m. Drew Garcia MD
--- NOTE | 2017-04-02 17:54 | PCM.URO ---
Urology Progress Note - Objective Lab Results Last 24 Hours: Laboratory Results - last 24 hr 04/01/17 04/02/17 04/02/17 23:46 05:00 05:00 WBC 7.7 RBC 2.79 L Hgb 8.1 L Hct 23.3 L MCV 83.5 MCH 29.0 MCHC 34.8 RDW 14.1 Plt Count 187 MPV 10.2 Gran % 70.0 H Lymph % (Auto) 16.5 L Gosper % (Auto) 8.9 H Eos % (Auto) 4.3 Baso % (Auto) 0.3 Gran # 5.41 Lymph # 1.3 Gosper # 0.7 H Eos # 0.3 Baso # 0.02 APTT Sodium 144 Potassium 3.0 L Chloride 117 H Carbon Dioxide 22 Anion Gap 8 L BUN 25 H Creatinine 1.4 Est GFR ( Amer) 59 Est GFR (Non-Af Amer) 49 POC Glucose (mg/dL) 103 Random Glucose 88 Calcium 7.2 L 04/02/17 04/02/17 05:00 15:00 WBC RBC Hgb Hct MCV MCH MCHC RDW Plt Count MPV Gran % Lymph % (Auto) Gosper % (Auto) Eos % (Auto) Baso % (Auto) Gran # Lymph # Gosper # Eos # Baso # APTT 46.7 H 79.7 H* Sodium Potassium Chloride Carbon Dioxide Anion Gap BUN Creatinine Est GFR ( Amer) Est GFR (Non-Af Amer) POC Glucose (mg/dL) Random Glucose Calcium Intake & Output: Intake & Output 04/01/17 04/02/17 04/02/17 18:59 06:59 18:59 Intake Total 1232 380 515 Output Total 800 300 400 Balance 432 80 115 Weight 138 lb Intake: IV 512 260 35 Right Antecubital 512 260 Oral 720 120 480 Output: Urine 800 300 400 Urethral (Wong) 800 300 400 Other: Voiding Method Indwelling Catheter Indwelling Catheter # Bowel Movements 3 2 1 Vital Signs: Vital Signs - 24 hr 04/01/17 04/01/17 04/01/17 18:00 18:22 18:38 Temperature Pulse Rate 74 71 78 Respiratory 17 20 21 Rate Blood Pressure 120/65 O2 Sat by Pulse 99 99 99 Oximetry 04/01/17 04/01/17 04/01/17 19:00 20:00 21:00 Temperature 96.1 F L Pulse Rate 66 70 72 Respiratory 12 14 12 Rate Blood Pressure 107/50 L 115/55 L 139/75 O2 Sat by Pulse 100 97 99 Oximetry 04/01/17 04/01/17 04/01/17 22:00 23:00 23:01 Temperature Pulse Rate 66 68 Respiratory 14 14 13 Rate Blood Pressure 125/60 123/58 L O2 Sat by Pulse 98 98 Oximetry 04/02/17 04/02/17 04/02/17 00:00 01:00 01:23 Temperature 98.4 F Pulse Rate 77 62 87 Respiratory 15 15 19 Rate Blood Pressure 133/59 L 123/64 O2 Sat by Pulse 98 95 Oximetry 04/02/17 04/02/17 04/02/17 01:24 01:25 02:00 Temperature Pulse Rate 89 101 H 69 Respiratory 24 21 14 Rate Blood Pressure 126/64 O2 Sat by Pulse 100 Oximetry 04/02/17 04/02/17 04/02/17 03:00 04:00 05:00 Temperature 98.8 F Pulse Rate 65 72 78 Respiratory 16 13 15 Rate Blood Pressure 114/58 L 125/63 127/67 O2 Sat by Pulse 99 99 100 Oximetry 04/02/17 04/02/17 04/02/17 05:24 05:25 05:26 Temperature Pulse Rate 73 75 74 Respiratory 14 13 16 Rate Blood Pressure O2 Sat by Pulse Oximetry 04/02/17 04/02/17 04/02/17 05:27 05:28 05:29 Temperature Pulse Rate 76 74 78 Respiratory 18 14 14 Rate Blood Pressure O2 Sat by Pulse Oximetry 04/02/17 04/02/17 04/02/17 05:30 05:31 05:32 Temperature Pulse Rate 71 70 70 Respiratory 13 15 13 Rate Blood Pressure O2 Sat by Pulse Oximetry 04/02/17 04/02/17 04/02/17 05:33 05:34 05:35 Temperature Pulse Rate 74 67 70 Respiratory 14 14 12 Rate Blood Pressure O2 Sat by Pulse Oximetry 04/02/17 04/02/17 04/02/17 05:36 05:37 05:38 Temperature Pulse Rate 81 76 76 Respiratory 13 13 14 Rate Blood Pressure O2 Sat by Pulse Oximetry 04/02/17 04/02/17 04/02/17 05:39 05:40 05:41 Temperature Pulse Rate 72 71 72 Respiratory 12 14 12 Rate Blood Pressure O2 Sat by Pulse Oximetry 04/02/17 04/02/17 04/02/17 05:42 05:43 05:44 Temperature Pulse Rate 72 72 70 Respiratory 13 14 13 Rate Blood Pressure O2 Sat by Pulse Oximetry 04/02/17 04/02/17 04/02/17 05:45 05:46 05:47 Temperature Pulse Rate 71 73 72 Respiratory 12 12 12 Rate Blood Pressure O2 Sat by Pulse Oximetry 04/02/17 04/02/17 04/02/17 05:48 12:00 17:32 Temperature 98.0 F 97.6 F Pulse Rate 80 75 71 Respiratory 14 16 17 Rate Blood Pressure 140/82 140/77 O2 Sat by Pulse Oximetry
--- NOTE | 2017-04-03 03:13 | PN ---
SUBJECTIVE: The patient is 81 years old, was seen and examined, seems to be lethargic, opens eyes and mumbles a few words upon stimulation. According to nurse, oral intake is not that great, does not look in any distress. PHYSICAL EXAMINATION: VITAL SIGNS: He is afebrile, pulse 75, respirations 16, and blood pressure 140/82. LUNGS: Bilateral fair airflow. No rhonchi or crackles. HEART: S1 and S2 audible. ABDOMEN: Soft and nontender. No rebound. No guarding. NEUROLOGIC: The patient is sleepy and arousable. EXTREMITIES: Bilateral legs +1 edema. LABORATORY DATA: WBC 7.7, hemoglobin 8.1, hematocrit 23, and platelets are 187. PTT 79.7. Chemistry; sodium 134, potassium 3.0, chloride 117, CO2 of 22, BUN 25, creatinine 1.4, blood sugar of 88. Blood culture on 03/28/2017, positive for Streptococcus mitis. ASSESSMENT: 1. Streptococcus mitis bacteremia. 2. Mesenteric ischemia, status post angioplasty for superior mesenteric artery and inferior mesenteric artery. 3. Bov-qcbwybk-njxkqjckw diabetes. 4. Constipation. 5. Hypertension. 6. Deconditioning. PLAN: At this point, the patient is on heparin. Although his hemoglobin is borderline, he is not actively bleeding, we will hold off blood transfusion for today. We will followup his H and H in the a.m., and if it drops below 8, he should be transfused. We will continue him on Zosyn and order for CBC and CMP in the a.m. Drew Garcia MD cc:
[2017-04-03] MEDS: Piperacillin/Tazobact 3.375 gm 100 ML IVPB SCH ×2 (05:48→18:01)
[2017-04-03 06:22] LABS: BASO # 0.04 K/mm3 (0.0-2.0); BASO % 0.5 % (0.0-3.0); EOS # 0.3 (0.0-0.7); EOS % 3.8 % (1.5-5.0); GRAN # 4.94 (1.4-6.5); LYMPH # 1.7 (1.2-3.4); LYMPH % 22.2 % (22.0-35.0); MEAN CELL VOLUME 82.9 fL (80.0-105.0); MEAN CORPUSCULAR HEMOGLOBIN 28.5 pg (25.0-35.0); MEAN CORPUSCULAR HGB CONC 34.3 g/dl (31.0-37.0); MEAN PLATELET VOLUME 10.7 fl (7.0-11.0); MONO # 0.8 (0.1-0.6); MONO % 10.5 % (1.0-6.0); PLATELET COUNT 218 10^3/uL (120.0-450.0); RBC 2.81 10^6/uL (3.5-6.1); RED CELL DISTRIBUTION WIDTH 14.4 % (11.5-14.5); WHITE BLOOD COUNT 7.8 10^3/ul (4.5-11.0)
[2017-04-03 07:02] LABS: ALB/GLOB RATIO 0.9 (1.1-1.8); ALBUMIN 2.3 g/dL (3.0-4.8); CALCIUM 7.3 mg/dL (8.4-10.5)
--- NOTE | 2017-04-03 08:04 | PCM.URO ---
Urology Progress Note - Objective Lab Results Last 24 Hours: Laboratory Results - last 24 hr 04/02/17 04/02/17 04/03/17 15:00 20:50 06:00 WBC 7.8 RBC 2.81 L Hgb 8.0 L Hct 23.3 L MCV 82.9 MCH 28.5 MCHC 34.3 RDW 14.4 Plt Count 218 MPV 10.7 Gran % 63.0 Lymph % (Auto) 22.2 Gregory % (Auto) 10.5 H Eos % (Auto) 3.8 Baso % (Auto) 0.5 Gran # 4.94 Lymph # 1.7 Gregory # 0.8 H Eos # 0.3 Baso # 0.04 APTT 79.7 H* 51.0 H Sodium Potassium Chloride Carbon Dioxide Anion Gap BUN Creatinine Est GFR ( Amer) Est GFR (Non-Af Amer) Random Glucose Calcium Total Bilirubin AST ALT Alkaline Phosphatase Total Protein Albumin Globulin Albumin/Globulin Ratio 04/03/17 04/03/17 06:00 06:00 WBC RBC Hgb Hct MCV MCH MCHC RDW Plt Count MPV Gran % Lymph % (Auto) Gregory % (Auto) Eos % (Auto) Baso % (Auto) Gran # Lymph # Gregory # Eos # Baso # APTT 46.2 H Sodium 143 Potassium 2.5 L* Chloride 114 H Carbon Dioxide 20 L Anion Gap 12 BUN 19 Creatinine 1.4 Est GFR ( Amer) 59 Est GFR (Non-Af Amer) 49 Random Glucose 82 Calcium 7.3 L Total Bilirubin 0.6 AST 33 ALT 22 Alkaline Phosphatase 45 Total Protein 5.0 L Albumin 2.3 L Globulin 2.7 Albumin/Globulin Ratio 0.9 L Intake & Output: Intake & Output 04/02/17 04/03/17 04/03/17 18:59 06:59 18:59 Intake Total 755 1952 Output Total 400 700 Balance 355 1252 Weight 138 lb Intake: IV 275 272 Right Antecubital 272 Oral 480 1680 Output: Urine 400 700 Urethral (Wong) 400 700 Other: # Bowel Movements 1 1 Vital Signs: Vital Signs - 24 hr 04/02/17 04/02/17 04/03/17 12:00 17:32 06:00 Temperature 98.0 F 97.6 F 98.5 F Pulse Rate 75 71 88 Respiratory 16 17 19 Rate Blood Pressure 140/82 140/77 153/86 H O2 Sat by Pulse 97 Oximetry
--- NOTE | 2017-04-03 09:04 | CP.PCM.PN ---
Subjective - Date & Time of Evaluation Date of Evaluation: 04/03/17 Time of Evaluation: 09:00 - Subjective Subjective: SURGERY NOTE FOR DR. HERNANDEZ 81M seen and examined at bedside. Patient doing well, denies pain, nausea, vomiting. Tolerating diet. Objective - Vital Signs/Intake and Output Vital Signs (last 24 hours): Temp Pulse Resp BP Pulse Ox 98.5 F 88 19 153/86 H 97 04/03/17 06:00 04/03/17 06:00 04/03/17 06:00 04/03/17 06:00 04/03/17 06:00 Intake and Output: 04/03/17 04/03/17 06:59 18:59 Intake Total 1952 Output Total 700 Balance 1252 - Medications Medications: Current Medications Acetylcysteine (Acetylcysteine 20%) 3 ml PO BID OMAR Last Admin: 04/02/17 18:22 Dose: 3 ml Piperacillin Sod/Tazobactam Sod (Zosyn 3.375 In Ns 100ml) 100 mls @ 200 mls/hr IVPB Q6 OMAR PRN Reason: Protocol Stop: 04/06/17 00:01 Last Admin: 04/03/17 05:48 Dose: 200 mls/hr Heparin Sodium/Dextrose (Heparin 25,000 Units/250ml In D5w) 25,000 units in 250 mls @ 10.475 mls/hr IV .[id number] PRN; Protocol; 18 UNITS/KG/HR PRN Reason: ADJUST RATE PER PROTOCOL Last Admin: 04/02/17 18:35 Dose: 10.65 units/kg/hr, 6.198 mls/hr Sodium Chloride (Sodium Chloride 0.9%) 1,000 mls @ 100 mls/hr IV .Q10H [facility] Potassium Chloride (Potassium Chloride 20 Meq/100 Ml) 20 meq in 100 mls @ 50 mls/hr IVPB Q2H OMAR Stop: 04/03/17 11:59 Last Admin: 04/03/17 08:25 Dose: 50 mls/hr Potassium Chloride (Potassium Chloride 20 Meq/100 Ml) 20 meq in 100 mls @ 50 mls/hr IVPB Q2H OMAR Stop: 04/03/17 15:59 Morphine Sulfate (Morphine) 2 mg IVP Q4H PRN PRN Reason: Pain, severe (8-10) Last Admin: 03/29/17 18:56 Dose: 2 mg Ondansetron HCl (Zofran Inj) 4 mg IVP Q6H PRN PRN Reason: Nausea/Vomiting Pantoprazole Sodium (Protonix Inj) 40 mg IVP DAILY [facility] Last Admin: 04/02/17 11:08 Dose: 40 mg Quetiapine Fumarate (Seroquel) 12.5 mg PO HS OMAR PRN Reason: Protocol Last Admin: 03/28/17 22:00 Dose: Not Given - Labs Labs: 04/03/17 06:00 04/03/17 06:00 PT 14.6 Seconds (9.9-11.8) H 03/29/17 08:40 INR 1.35 (0.93-1.08) H 03/29/17 08:40 APTT 46.2 Seconds (23.7-30.8) H 04/03/17 06:00 - Constitutional Appears: Non-toxic, No Acute Distress - Head Exam Head Exam: ATRAUMATIC - ENT Exam ENT Exam: Mucous Membranes Moist - Respiratory Exam Respiratory Exam: Clear to Ausculation Bilateral, NORMAL BREATHING PATTERN - Cardiovascular Exam Cardiovascular Exam: REGULAR RHYTHM, +S1, +S2 - GI/Abdominal Exam GI & Abdominal Exam: Soft. absent: Distended, Firm, Guarding, Rigid, Tenderness , Rebound - Neurological Exam Neurological Exam: Alert, Awake - Psychiatric Exam Psychiatric exam: Normal Affect, Normal Mood - Skin Skin Exam: Dry, Intact, Normal Color, Warm Assessment and Plan - Assessment and Plan (Free Text) Assessment: 81M with abdominal 2/2 ischemic colitis, symptoms resolved Plan: - hypokalemia - currently being repleted. - continue medical management - continue anti-coag as per IR/medicine - consider alf anticoag Further recs discuss with Dr. Easton Turner, PGY2
[2017-04-03] MEDS ORDERED: Potassium Chloride 20 mEq ER Tab PO ONE ×3 (09:29→22:00)
--- NOTE | 2017-04-03 10:35 | PN ---
The patient was seen in CCU 129, bed #2. The patient was seen earlier this morning. The patient's mental status is poor. He had an uneventful night. He has had no fevers and there has been no diarrhea reported on exam. PHYSICAL EXAMINATION: VITAL SIGNS: His temperature is 98, blood pressure is 140/70, respiratory rate of 18, heart rate of 98. HEENT: Unremarkable. NECK: Supple. LUNGS: Decreased breath sounds. HEART: Normal S1 and S2. ABDOMEN: Soft, nontender. The patient does have a right groin femoral line in. LABORATORY EXAMINATION: Reveals white count of 16,700, hemoglobin of 9. The patient does have 14% bandemia. Coagulation is noted and the chemistry reveals BUN of 33, creatinine of 1.6 and procalcitonin is less than 0.05. Blood culture, one bottle is positive for gram-positive cocci in chains. It is not Enterococcus by PNA FISH, probable strep cocci in chains and no further identification and sensitivity available. The second bottle is no growth at 24 hours. Gram-stain of that is pending and the stool for C. diff is negative antigen, negative toxins. Review of orders reveals that the patient to be on Zosyn, a dose of vancomycin was given. Now, the patient is on vancomycin and the patient's creatinine is increased to 1.6, it was 1.1. The patient also had a CAT scan of the abdomen and pelvis, which was reviewed. The patient also had an echo, which was done yesterday; read by *------* yesterday. No evidence of vegetations noted on the echo. Dr. Holbrook's progress note from today is reviewed and the patient's EKG from the is reviewed. ASSESSMENT AND PLAN: He is a 81-year-old male with history of cerebrovascular accident, history of dementia, hypertension, diabetes mellitus, renal failure, macular degeneration, history of urinary retention, admitted with severe sepsis with acute colitis and acute kidney injury on top of chronic renal injury in a patient with gram-positive cocci, bacteremia, strep and now with the increasing creatinine, we will discontinue the vancomycin; repeat blood cultures x2; consider endocarditis in this patient who has a history of diabetes, hypertension, macular degeneration. We will order sed rate and C-reactive protein and continue Zosyn for now; pending further identification and sensitivity Gram-positive cocci in the blood from the bacteremia in a patient who has clearly severe sepsis with 14% bandemia and leukocytosis and may need a DARIUSZ, although it is only one bottle, does not meet *------* criteria. The patient does have mesenteric colitis with RAINA thrombus and superior mesenteric artery stenosis. We will discontinue the vancomycin due to increase in creatinine and follow closely with you *------* repeat cultures. [facility] # [id number]
--- NOTE | 2017-04-03 13:27 | CP.PCM.PN ---
Subjective - Date & Time of Evaluation Date of Evaluation: 04/03/17 Time of Evaluation: 10:00 - Subjective Subjective: Comfortable, afebrile, not in distress. Objective - Vital Signs/Intake and Output Vital Signs (last 24 hours): Temp Pulse Resp BP Pulse Ox 98.5 F 88 19 153/86 H 97 04/03/17 06:00 04/03/17 06:00 04/03/17 06:00 04/03/17 06:00 04/03/17 06:00 Intake and Output: 04/02/17 04/03/17 18:59 06:59 Intake Total 755 1952 Output Total 400 700 Balance 355 1252 - Medications Medications: Current Medications Acetylcysteine (Acetylcysteine 20%) 3 ml PO BID [facility] Last Admin: 04/02/17 18:22 Dose: 3 ml Piperacillin Sod/Tazobactam Sod (Zosyn 3.375 In Ns 100ml) 100 mls @ 200 mls/hr IVPB Q6 OMAR PRN Reason: Protocol Stop: 04/06/17 00:01 Last Admin: 04/03/17 05:48 Dose: 200 mls/hr Heparin Sodium/Dextrose (Heparin 25,000 Units/250ml In D5w) 25,000 units in 250 mls @ 10.475 mls/hr IV .[id number] PRN; Protocol; 18 UNITS/KG/HR PRN Reason: ADJUST RATE PER PROTOCOL Last Admin: 04/02/17 18:35 Dose: 10.65 units/kg/hr, 6.198 mls/hr Sodium Chloride (Sodium Chloride 0.9%) 1,000 mls @ 100 mls/hr IV .Q10H [facility] Morphine Sulfate (Morphine) 2 mg IVP Q4H PRN PRN Reason: Pain, severe (8-10) Last Admin: 03/29/17 18:56 Dose: 2 mg Ondansetron HCl (Zofran Inj) 4 mg IVP Q6H PRN PRN Reason: Nausea/Vomiting Pantoprazole Sodium (Protonix Inj) 40 mg IVP DAILY [facility] Last Admin: 04/02/17 11:08 Dose: 40 mg Quetiapine Fumarate (Seroquel) 12.5 mg PO HS OMAR PRN Reason: Protocol Last Admin: 03/28/17 22:00 Dose: Not Given - Labs Labs: 04/02/17 05:00 04/02/17 05:00 PT 14.6 Seconds (9.9-11.8) H 03/29/17 08:40 INR 1.35 (0.93-1.08) H 03/29/17 08:40 APTT 46.2 Seconds (23.7-30.8) H 04/03/17 06:00 - Constitutional Appears: Non-toxic, No Acute Distress - Head Exam Head Exam: NORMAL INSPECTION - Neck Exam Neck Exam: absent: Meningismus - Respiratory Exam Respiratory Exam: Decreased Breath Sounds - Cardiovascular Exam Cardiovascular Exam: +S1, +S2 - GI/Abdominal Exam GI & Abdominal Exam: Soft. absent: Tenderness Assessment and Plan - Assessment and Plan (Free Text) Plan: Assessment Consider sepsis due to acute colitis with associated thickening of the amaya of the rectum, in a patient with fecal impaction on CT scan of the abdomen and pelvis and also has acute mesenteric ischemia associated with the superior and inferior mesenteric arteries now S/P angioplast POD #4; patient also has Strep mitis bacteremia which is not persistent and the 2D echo is negative for vegetations CVA chronic renal failure HTN macular degeneration DM history of urinary retention Plan continue Zosyn (day 6) - repeat blood cx are negative - would target 7-10 days of antibiotics 2D echo does not show vegetations will continue to monitor clinically
[2017-04-03] MEDS ORDERED: Heparin 25,000units in D5W /250 ML BAG IV PRN (17:45)
[2017-04-03] MEDS: Acetylcysteine 20% Inhal Soln (4ml) PO SCH (19:02)
[2017-04-03 22:41] LABS: ALB/GLOB RATIO 0.8 (1.1-1.8); ALBUMIN 2.2 g/dL (3.0-4.8); ALT/SGPT 25 U/L (7-56); AST/SGOT 25 U/L (15-59); BLOOD UREA NITROGEN 16 mg/dL (7-21); CALCIUM 7.2 mg/dL (8.4-10.5); GFR AFRICAN-AMERICAN > 60; GFR NON-AFRICAN AMERICAN 53
[2017-04-04] MEDS: Piperacillin/Tazobact 3.375 gm 100 ML IVPB SCH ×2 (00:41→05:32)
--- NOTE | 2017-04-04 03:17 | PN ---
DATE: 04/03/2017 SUBJECTIVE: The patient has no complaints of any chest pain. No shortness of breath or headache. PHYSICAL EXAMINATION VITAL SIGNS: Temperature is 97.8, pulse is 96, blood pressure 121/69 and respirations are 18. HEENT: Anicteric sclerae, moist mucosa. NECK: No JVD, adenopathy or thyromegaly. CARDIOVASCULAR: S1, S2 heard. No murmurs, rubs or gallop. LUNGS: Clear to auscultation bilaterally. No wheezing, rales or rhonchi. ABDOMEN: Bowel sounds are positive. Soft, nontender, nondistended. EXTREMITIES: Trace edema. LABORATORY DATA: White count is 2.5, hemoglobin 8.0. Creatinine is 1.4. ASSESSMENT: 1. Mesenteric ischemia, resolved. 2. Hypokalemia. 3. Superior mesenteric artery ischemia, status post angioplasty. 4. Septic shock, resolved. 5. Dementia, Alzheimer's type. 6. Delirium. 7. Constipation. 8. Spleen lesion. 9. Right pelvic fluid collection. 10. Acute kidney injury. 11. Full code. 12. Status post removal of right femoral TLC. PLAN: The patient has his potassium replaced. I will discontinue the patient's anticoagulation at this point. The patient had angioplasty with no stents; so, I will place the patient on aspirin. He is on acetylcysteine. He is on morphine for pain. The patient is going to be on Zosyn for antibiotics. Blood cultures have been negative. He is getting physical therapy. Jakob Newman MD
[2017-04-04 05:56] LABS: MEAN CELL VOLUME 83.3 fL (80.0-105.0); MEAN CORPUSCULAR HEMOGLOBIN 29.2 pg (25.0-35.0); MEAN PLATELET VOLUME 10.2 fl (7.0-11.0); RBC 2.64 10^6/uL (3.5-6.1); RED CELL DISTRIBUTION WIDTH 14.4 % (11.5-14.5)
[2017-04-04 06:06] LABS: HEMOGLOBIN 7.7 gm/dL (14.0-18.0)
[2017-04-04 06:11] LABS: ALB/GLOB RATIO 0.8 (1.1-1.8); ALBUMIN 2.2 g/dL (3.0-4.8); ALT/SGPT 26 U/L (7-56); AST/SGOT 24 U/L (15-59); BLOOD UREA NITROGEN 14 mg/dL (7-21); CALCIUM 7.4 mg/dL (8.4-10.5); GFR AFRICAN-AMERICAN > 60; GFR NON-AFRICAN AMERICAN 53; MAGNESIUM 1.8 mg/dL (1.7-2.2)
[2017-04-04 06:15] LABS: % IRON SATURATION 25 % (20-55); IRON 39 ug/dL (45-180); TOTAL IRON BINDING CAPACITY 155 ug/dL (261-462)
[2017-04-04] MEDS ORDERED: Potassium Chloride 20 mEq ER Tab PO ONE ×3 (06:19→18:00)
[2017-04-04 07:17] LABS: MEAN CELL VOLUME 83.3 fL (80.0-105.0); MEAN CORPUSCULAR HGB CONC 34.8 g/dl (31.0-37.0); MEAN PLATELET VOLUME 9.7 fl (7.0-11.0); RBC 2.69 10^6/uL (3.5-6.1); RED CELL DISTRIBUTION WIDTH 14.4 % (11.5-14.5); WHITE BLOOD COUNT 10.5 10^3/ul (4.5-11.0)
[2017-04-04 07:28] LABS: HEMOGLOBIN 7.8 gm/dL (14.0-18.0)
[2017-04-04] MEDS ORDERED: Potassium Phosphate 21 MMOLE in Sodium Chloride 0.9% 250 ML IVPB ONE (07:43)
[2017-04-04 08:05] VITALS: O2SAT 98
--- NOTE | 2017-04-04 08:53 | CP.PCM.PN ---
Subjective - Date & Time of Evaluation Date of Evaluation: 04/04/17 Time of Evaluation: 08:51 - Subjective Subjective: Surgery Progress note- Dr. Mccormack Pt S&E at bedside this am. denies pain n/v tolerating diet Objective - Vital Signs/Intake and Output Vital Signs (last 24 hours): Temp Pulse Resp BP Pulse Ox 98.8 F 84 18 135/81 98 04/04/17 06:00 04/04/17 06:00 04/04/17 06:00 04/04/17 06:00 04/04/17 06:00 Intake and Output: 04/04/17 04/04/17 06:59 18:59 Intake Total 540 Output Total 550 Balance -10 - Medications Medications: Current Medications Aspirin (Ecotrin) 81 mg PO DAILY OMAR Piperacillin Sod/Tazobactam Sod (Zosyn 3.375 In Ns 100ml) 100 mls @ 200 mls/hr IVPB Q6 OMAR PRN Reason: Protocol Stop: 04/06/17 00:01 Last Admin: 04/04/17 05:32 Dose: 200 mls/hr Potassium Phosphate 21 mmole/ (Sodium Chloride) 257 mls @ 42.5 mls/hr IVPB ONCE ONE Stop: 04/04/17 13:45 Potassium Phosphate 15 mmole/ (Sodium Chloride) 255 mls @ 42.5 mls/hr IVPB ONCE ONE Stop: 04/04/17 14:59 Morphine Sulfate (Morphine) 2 mg IVP Q4H PRN PRN Reason: Pain, severe (8-10) Last Admin: 03/29/17 18:56 Dose: 2 mg Ondansetron HCl (Zofran Inj) 4 mg IVP Q6H PRN PRN Reason: Nausea/Vomiting Potassium Chloride (K-Dur 20 Meq Er Tab) 40 meq PO ONCE ONE Stop: 04/04/17 12:01 Potassium Chloride (K-Dur 20 Meq Er Tab) 40 meq PO ONCE ONE Stop: 04/04/17 18:01 - Labs Labs: 04/04/17 07:03 04/04/17 05:30 PT 14.6 Seconds (9.9-11.8) H 03/29/17 08:40 INR 1.35 (0.93-1.08) H 03/29/17 08:40 APTT 119.2 Seconds (23.7-30.8) H* 04/03/17 13:50 - Constitutional Appears: Non-toxic, No Acute Distress - Respiratory Exam Respiratory Exam: Clear to Ausculation Bilateral, NORMAL BREATHING PATTERN - Cardiovascular Exam Cardiovascular Exam: REGULAR RHYTHM, +S1, +S2 - GI/Abdominal Exam GI & Abdominal Exam: Soft. absent: Distended, Firm, Guarding, Rigid, Tenderness , Rebound - Neurological Exam Neurological Exam: Alert, Awake - Skin Skin Exam: Dry, Intact, Normal Color, Warm Assessment and Plan - Assessment and Plan (Free Text) Assessment: 81M with ischemic colitis s/p IR intervention. Symptoms resolved. Plan: - c/w medical managment - D/C florecita - consider long term care administrator anticoagulation - no further surgical intervention needed at this time - further recs d/w Dr. Easton Noonan PGY1
[2017-04-04] MEDS ORDERED: Potassium Phosphate 15 MMOLE in Sodium Chloride 0.9% 250 ML IVPB ONE (09:00)
--- NOTE | 2017-04-04 09:03 | PN ---
DATE: SUBJECTIVE: The patient has no complaints of any chest pain, shortness of breath or headaches. PHYSICAL EXAMINATION: VITAL SIGNS: Temperature is 97.8, pulse of 86, blood pressure is 121/69, respirations 18. HEENT: Anicteric sclerae, moist mucosa. No oral lesions. NECK: No JVD, adenopathy, thyromegaly. CARDIOVASCULAR: S1, S2. No murmurs, rubs or gallops. LUNGS: Clear to auscultation bilaterally. No wheezes, rales or rhonchi. ABDOMEN: Bowel sounds are positive. Soft, nontender, nondistended. EXTREMITIES: No edema, 2+ pulses. NEUROLOGIC: Alert, awake, full range of motion x4. LABORATORY DATA: Reviewed. ASSESSMENT: 1. Mesenteric ischemia, resolved. 2. Hypokalemia, improved. 3. Superior mesenteric artery ischemia, status post angioplasty. 4. Shock, resolved. 5. Dementia, Alzheimer type. 6. Delirium. 7. Constipation. 8. Skin lesion. 9. *------*. 10. Acute kidney injury, improved. 11. Status post removal of right femoral triple-lumen catheter. 12. Full code. PLAN: The patient is currently comfortable, is currently on aspirin. The patient's heparin has been discontinued. The patient did not get a stent, just an angioplasty during his intervention for mesenteric ischemia. The patient is on morphine for pain and is on Zofran, taking Zosyn for antibiotics. The patient is on day #7 of antibiotics. Echo was done that shows no vegetations. Jakob Newman MD
[2017-04-04] MEDS: Potassium & Sodium Phosphate PO SCH ×2 (09:29→18:03)
--- NOTE | 2017-04-04 12:57 | PN ---
DATE: 04/04/2017 SUBJECTIVE: The patient in bed, in no acute distress, was seen early this morning. Mr. Holden Ennis was seen in room 61, bed 1. The patient had an uneventful night. I discussed the case with the nurse caring for the patient last night. There was no fevers. No chills. He was comfortable. PHYSICAL EXAMINATION VITAL SIGNS: Temperature 98, blood pressure is 135/80, respiratory rate 18, hear rate of 76. HEENT: Unremarkable. NECK: Supple. LUNGS: Decreased breath sounds. HEART: Normal S1 and S2. ABDOMEN: Soft and nontender. LABORATORY EXAMINATION: Reveals the patient's white count is 10.5, hemoglobin of 7, platelets of 194. BUN 14 and creatinine of 1.3. Urinalysis is noted and microbiology reveals the patient's one blood culture is positive for strep mitis and the repeat blood cultures are negative. REVIEW OF ORDERS: Reveals the patient to be on Zosyn. The patient also had an echocardiogram on the 12th, was read by Dr. Fried, which was reported to be no vegetations. ASSESSMENT AND PLAN: A 81-year-old male with sepsis due to acute colitis associated with thickening of wall of the rectum in a patient with fecal impaction on CAT scan and pelvic, also acute mesenteric ischemia associated with superior and inferior mesenteric arteries now status post angioplasty, post procedure day #5. Also had streptococcus mitis bacteremia and on day #7 of Zosyn. The patient doing well. We will discontinue the Zosyn. No further antibiotics needed with repeat cultures negative and negative echo. Moe Zamora MD
--- NOTE | 2017-04-05 02:01 | CON ---
DATE: 04/04/2017 TIME OF EVALUATION: 1800 hours. REFERRING PHYSICIAN: Dr. Jakob Newman. REASON FOR CONSULTATION: Anemia. HISTORY OF PRESENT ILLNESS: The patient is a 81-year-old male, admitted with sepsis. He has colitis, fluid collection in the pelvis. He also developed superior mesenteric artery ischemia, status post angioplasty. He was in ICU for hypotension, sepsis is recovering. Blood pressures improved. He is off pressors now. Hemoglobin dropped to 7.7 today. His hemoglobin on admission was 11.5. There is no overt bleeding. He received 2 units of blood transfusion today. He denies any complaints. No abdominal pain. He is comfortable in bed. PAST MEDICAL HISTORY: Coronary artery disease, hypertension, diabetes mellitus type 2, CVA in 2015, dementia, macular degeneration, history of recurrent falls, history of incontinence. ALLERGIES: No known allergies. PAST SURGICAL HISTORY: Appendectomy, sebaceous cyst removal. REVIEW OF SYSTEMS: As per HPI. A full 12-point review of systems reviewed, negative. Family History : reviewed, not significant. PHYSICAL EXAMINATION: GENERAL: Comfortable in bed, in no acute distress. VITAL SIGNS: Temperature 97.1, heart rate 71 per minute, blood pressure 149/89, respiratory rate 20 per minute. Oxygen saturation 98% on room air. HEENT: Normal. Pallor positive. NECK: Supple. CHEST: Air entry present, equal bilateral. No added sounds. CARDIOVASCULAR: S1 and S2 normal. No murmur, no gallop. ABDOMEN: Soft, nontender. No hepatosplenomegaly. EXTREMITIES: No edema. DEBURRER MACHINE: Alert and oriented x3. No focal sensory or motor deficit. No cranial nerve palsy. LABORATORY DATA: White count 10.5, hemoglobin 7.7, hematocrit 22, platelets count 211. Sodium 142, potassium 3.7, iron 39, iron saturation 25%, total protein 4.8, albumin 2.2, globulin 2.7, PTT 119. MEDICATIONS: Aspirin 81 mg daily, morphine 2 mg q. 4 hours p.r.n., Zofran 4 mg q. 6 hours p.r.n. and Neutra-Phos. Zosyn discontinued. ASSESSMENT AND PLAN: 1. Anemia. 2. Superior mesenteric ischemia, status post angioplasty. 3. Colitis. 4. Sepsis, recovering. 5. Coronary artery disease. 6. Diabetes mellitus type 2. PLAN: He is severely anemic. Iron study showed low iron. No obvious source of bleeding. Anemia seems to be multifactorial-anemia of chronic disease. He also was admitted with acute renal failure with elevated creatinine. Renal disease is also contributing to anemia. Received 2 units of blood transfusion. Iron is low at 39, saturation 25%. We will give 1 dose of IV iron tomorrow. We will continue to monitor blood count. White count is 10.5. He is off antibiotics now. Sepsis is recovering. He has fluid collection in the pelvis, likely related to colitis. He has hypodense lesion in the spleen on CAT scan of the abdomen, status post superior mesenteric artery angioplasty. Stool occult blood pending. I would recommend supportive care with continuation of IV iron infusion if needed. No obvious malignancy indicated on CAT scan of abdomen and pelvis. Hypodense lesion in the spleen might be related to infection. He was admitted with sepsis. I will order serum protein electrophoresis and immunofixation. Thank you Dr. Newman for allowing us to participate in this patient's care. We will continue to follow during hospitalization. Discussed with the staff nurse. Judy Harper MD KATERIN
[2017-04-05 06:05] LABS: HEMOGLOBIN 10.9 gm/dL (14.0-18.0); MEAN CELL VOLUME 85.4 fL (80.0-105.0); MEAN CORPUSCULAR HEMOGLOBIN 29.4 pg (25.0-35.0); MEAN CORPUSCULAR HGB CONC 34.4 g/dl (31.0-37.0); MEAN PLATELET VOLUME 10.8 fl (7.0-11.0); RBC 3.71 10^6/uL (3.5-6.1); RED CELL DISTRIBUTION WIDTH 14.8 % (11.5-14.5); WHITE BLOOD COUNT 9.5 10^3/ul (4.5-11.0)
[2017-04-05 06:22] LABS: ALB/GLOB RATIO 0.8 (1.1-1.8); ALBUMIN 2.1 g/dL (3.0-4.8); ALT/SGPT 27 U/L (7-56); AST/SGOT 21 U/L (15-59); BLOOD UREA NITROGEN 11 mg/dL (7-21); CALCIUM 7.4 mg/dL (8.4-10.5); GFR AFRICAN-AMERICAN > 60; GFR NON-AFRICAN AMERICAN 58
--- NOTE | 2017-04-05 11:10 | PN ---
SUBJECTIVE: The patient has no headaches or dizziness. No chest pain. PHYSICAL EXAMINATION: VITAL SIGNS: Temperature is 97.1, pulse of 72, blood pressure of 149/89, and respirations of 20. HEENT: Anicteric sclerae. Moist mucosa. NECK: No JVD, adenopathy, or thyromegaly. CARDIOVASCULAR: S1 and S2 regular. No murmurs, rubs, or gallops. ABDOMEN: Bowel sounds are positive. Soft, nontender, and nondistended. EXTREMITIES: Lower extremity, 2+ pulses, full range of motion. ASSESSMENT: 1. Acute anemia secondary to blood loss. 2. Mesenteric ischemia, resolved. 3. Superior mesenteric artery ischemia, status post angioplasty. 4. Hypokalemia, improved. 5. Shock, resolved. 6. Dementia, Alzheimer type. 7. Delirium. 8. Constipation. 9. Acute kidney injury, improved. 10. Status post removal of right femoral triple-lumen catheter. 11. Full code. 12. Hypophosphatemia. PLAN: The patient had received two units of blood transfusion yesterday. The patient also was given IV iron. The patient is on aspirin. We will renew his morphine for pain. He is currently on phosphorus because of hypophosphatemia. He was seen by Physical Therapy and deemed not a candidate for *------* PT, he has only *------* care at home. I did call the patient's yesterday to give her an update and to tell her that we will evaluate him to see if he qualifies for further rehab, but because of his limited ability to participate and the fact that Physical Therapy did not feel that he would benefit, we will discharge the patient home. Jakob Newman MD
--- NOTE | 2017-04-05 11:20 | CP.PCM.PN ---
Subjective - Date & Time of Evaluation Date of Evaluation: 04/05/17 Time of Evaluation: 08:00 - Subjective Subjective: General Surgery progress note for Dr. Mccormack PT S&E at bedside. CHELLY. Patient is not complaining of pain in abdomen. Denies F/C, N/V. Patient is a poor historian because he has dementia. Objective - Vital Signs/Intake and Output Vital Signs (last 24 hours): Temp Pulse Resp BP Pulse Ox 97.1 F L 72 20 149/89 98 04/04/17 20:05 04/05/17 04:17 04/04/17 20:05 04/04/17 20:05 04/04/17 06:00 Intake and Output: 04/05/17 04/05/17 06:59 18:59 Intake Total 100 Output Total 0 Balance 100 - Medications Medications: Current Medications Aspirin (Ecotrin) 81 mg PO DAILY [facility] Last Admin: 04/04/17 09:29 Dose: 81 mg Morphine Sulfate (Morphine) 2 mg IVP Q4H PRN PRN Reason: Pain, severe (8-10) Last Admin: 03/29/17 18:56 Dose: 2 mg Ondansetron HCl (Zofran Inj) 4 mg IVP Q6H PRN PRN Reason: Nausea/Vomiting Potassium Phos/Sodium Phos (Neutra-Phos) 1 pkt PO BID [facility] Stop: 04/09/17 10:01 Last Admin: 04/04/17 18:03 Dose: 1 pkt - Labs Labs: 04/05/17 05:20 04/05/17 05:20 PT 14.6 Seconds (9.9-11.8) H 03/29/17 08:40 INR 1.35 (0.93-1.08) H 03/29/17 08:40 APTT 119.2 Seconds (23.7-30.8) H* 04/03/17 13:50 - Constitutional Appears: Chronically Ill - Head Exam Head Exam: NORMAL INSPECTION - Eye Exam Eye Exam: EOMI, Normal appearance - ENT Exam ENT Exam: Mucous Membranes Moist - Neck Exam Neck Exam: Full ROM, Normal Inspection - Respiratory Exam Respiratory Exam: NORMAL BREATHING PATTERN. absent: Accessory Muscle Use, Rhonchi, Wheezes, Respiratory Distress - Cardiovascular Exam Cardiovascular Exam: REGULAR RHYTHM. absent: Bradycardia, Tachycardia - GI/Abdominal Exam GI & Abdominal Exam: Soft, Normal Bowel Sounds. absent: Distended, Firm, Guarding, Rigid, Tenderness - Psychiatric Exam Psychiatric exam: Flat Affect, Normal Mood - Skin Skin Exam: Dry, Intact, Normal Color, Warm Assessment and Plan - Assessment and Plan (Free Text) Assessment: 81 M resolved abdominal pain s/p angioplasty Plan: - c/w medical managment - consider custodial anticoagulation - no further surgical intervention needed at this time - continue repleting electrolytes Marlnee Milner DO PGY1
[2017-04-05] MEDS: Potassium & Sodium Phosphate PO SCH ×2 (11:29→18:24)
[2017-04-05 12:35] VITALS: BP 140/70; PULSE 76; RESP 18; TEMP 98.3
--- NOTE | 2017-04-06 00:31 | PN ---
SUBJECTIVE: The patient was seen early this morning in room 267, bed 1. No fevers and no chills. PHYSICAL EXAMINATION: *------*: The patient was seen early this morning with temperature of 98, blood pressure is 140/70, respiratory rate of 18, heart rate of 66. HEENT: Unremarkable. NECK: Supple. LUNGS: Decreased breath sounds. HEART: Normal S1 and S2. ABDOMEN: Soft and nontender. LABORATORY DATA: White count is 9, hemoglobin of 10, platelets of 213. BUN of 11, creatinine of 1.2. Blood culture *------* blood cultures are negative. The echo was negative. Currently, the patient is on no antibiotics. ASSESSMENT AND PLAN: This is a 81-year-old male with sepsis due to acute colitis associated with thickening of the wall of the rectum and fecal impaction. CAT scan of the pelvis and with acute mesenteric ischemia associated with superior mesenteric artery, status post angioplasty, postprocedure day #6. Currently off antibiotic, afebrile. Dr. Newman's note is reviewed and we will follow closely with you. The patient is at risk for developing nosocomial infections. oMe Zamora MD
[2017-04-06 19:31] LABS: ALBUMIN (PEP) 2.2 g/dL (3.8-4.8); ALPHA-1-GLOBULIN (PEP) 0.3 g/dL (0.2-0.3)
== END 2017-04-05 20:15 | disposition home health service (06) | DRG 853 ==
LOC: ED 16:21 → ERH 19:34 → CCU 21:51 → 2RNO 04-02 06:19
PROVIDERS: ADMIT Internal Medicine Nephrology; ATTEND Internal Medicine Nephrology
PROC: 06HM33Z Insertion of Infusion Device into Right Femoral Vein, Percutaneous Approach (ICD-10-PCS; 2017-03-28)
PROC: 3E043XZ Introduction of Vasopressor into Central Vein, Percutaneous Approach (ICD-10-PCS; 2017-03-28)
PROC: 047 Lower Arteries, Dilation (ICD-10-PCS; principal; 2017-03-30)
PROC: 04753ZZ Dilation of Superior Mesenteric Artery, Percutaneous Approach (ICD-10-PCS; 2017-03-30)
PROC: 0T9B70Z Drainage of Bladder with Drainage Device, Via Natural or Artificial Opening (ICD-10-PCS; 2017-03-30)
PROC: 30233N1 Transfusion of Nonautologous Red Blood Cells into Peripheral Vein, Percutaneous Approach (ICD-10-PCS; 2017-04-04)
DX: A40.8 Other streptococcal sepsis (principal); K55.049 Acute infarction of large intestine, extent unspecified; R65.21 Severe sepsis with septic shock; G93.41 Metabolic encephalopathy; N17.9 Acute kidney failure, unspecified; E87.2 Acidosis; D62 Acute posthemorrhagic anemia; F05 Delirium due to known physiological condition; G30.9 Alzheimer's disease, unspecified; F02.80 Dementia in other diseases classified elsewhere, unspecified severity, without behavioral disturbance, psychotic disturbance, mood disturbance, and anxiety; E11.22 Type 2 diabetes mellitus with diabetic chronic kidney disease; E86.0 Dehydration; K56.41 Fecal impaction; H35.30 Unspecified macular degeneration; R33.9 Retention of urine, unspecified; I12.9 Hypertensive chronic kidney disease with stage 1 through stage 4 chronic kidney disease, or unspecified chronic kidney disease; N18.9 Chronic kidney disease, unspecified; D73.89 Other diseases of spleen; E87.6 Hypokalemia; E83.39 Other disorders of phosphorus metabolism; Z86.73 Personal history of transient ischemic attack (TIA), and cerebral infarction without residual deficits; Z87.891 Personal history of nicotine dependence

== ENCOUNTER 2017-04-06 13:26 | Inpatient (IN) | payer MEDICARE, OTHER ==
[2017-04-06] MEDS ORDERED: Sodium Chloride 0.9% 500 ML IV STA (13:45)
--- NOTE | 2017-04-06 13:50 | ED PDOC ---
Arrival/HPI - General Time Seen by Provider: 04/06/17 13:31 Historian: Patient - History of Present Illness Narrative History of Present Illness (Text): 04/06/17 13:46 Holden Ennis is a 81 year old male who was sent to the emergency department by visiting nurse for evaluation of dehydration and loose stool. Symptom Onset: Gradual Activities at Onset: Light Context: Home Past Medical History - Provider Review Nursing Documentation Reviewed: Yes - Infectious Disease Hx of Infectious Diseases: None - Tetanus Immunization Tetanus Immunization: Unknown - Cardiac Hx Cardiac Disorders: Yes Hx Hypertension: Yes - Pulmonary Hx Respiratory Disorders: No - Neurological HX Cerebrovascular Accident: Yes (2014) - HEENT Hx Macular Degeneration: Yes Other/Comment: egd for removal of foreign body 06/08/14 - Renal Hx Renal Disorder: No - Endocrine/Metabolic Hx Diabetes Mellitus Type 2: Yes - Hematological/Oncological Hx Blood Disorders: No - Integumentary Other/Comment: reddened sacrum/ long curled thick toenails both feet/ unable to do proper skin assesment due to agitation - Musculoskeletal/Rheumatological Hx Falls: Yes (last one couple weeks ago) Hx Unsteady Gait: Yes (w/ch can't walk/stand) - Gastrointestinal Hx Gastrointestinal Disorders: No Other/Comment: egd for removal of foreigh body - Genitourinary/Gynecological Hx Incontinence: Yes Other/Comment: too weak to walk to bathroom/frequent falls - Psychiatric Hx Psychophysiologic Disorder: No Hx Depression: Yes Hx Emotional Abuse: No Hx Physical Abuse: No Hx Substance Use: No Other/Comment: up at night/pushes furniture/ jumps oob/ can become violent - Surgical History Hx Appendectomy: Yes Other/Comment: sebaceous cyst removal - Anesthesia Hx Anesthesia Reactions: Yes Hx Malignant Hyperthermia: No - Suicidal Assessment Feels Threatened In Home Enviroment: No Family/Social History - Physician Review Nursing Documentation Reviewed: Yes Family/Social History: No Known Family HX Smoking Status: Former Smoker Hx Alcohol Use: No Hx Substance Use: No Hx Substance Use Treatment: No Allergies/Home Meds Allergies/Adverse Reactions: Allergies No Known Allergies Allergy (Verified 04/06/17 13:53) Physical Exam - Physical Exam Narrative Physical Exam (Text): - Review of Systems Constitutional: Normal. absent: Fatigue, Weight Change, Fevers Eyes: Normal ENT: Normal Respiratory: Normal absent: SOB, Cough, Sputum Cardiovascular: Normal absent: Chest pain, Palpitations, Syncope Gastrointestinal: Loose stool absent: Abdominal pain, Nausea, Vomiting Genitourinary: Normal. absent: Dysuria, Frequency, Hematuria Musculoskeletal: Normal. absent: Arthralgias, Back Pain, Neck Pain Skin: Normal Neurological: Normal absent: Focal Weakness Endocrine: Normal Hemo/Lymphatic: Normal Psychiatric: Normal - Physical exam Patient appears age appropriate, in no resp distress - Systems Exam Head: Present: Atraumatic, Normocephalic Pupils: Present: PERRL Extraocular Muscles: Present: EOMI Conjunctiva: Present: Normal Mouth: Present: Moist Mucous Membranes Neck: Present: Normal Range of Motion. No: MIDLINE TENDERNESS, Paraspinal Tenderness Respiratory/Chest: Present: Clear to Auscultation, Good Air Exchange. No: Respiratory Distress, Accessory Muscle Use, Tachypnic Cardiovascular: Present: Regular Rate and Rhythm, Normal S1, S2, Peripheral Pulses Present. No: Murmurs Abdomen: Present: Normal Bowel Sounds, No: Tenderness, Peritoneal Signs, Rebound, Guarding, Distention Back: Present: Normal Inspection. No: Midline Tenderness, Paraspinal Tenderness Upper Extremity: Present: Normal Inspection. No: Cyanosis, Edema Lower Extremity: Present: Normal Inspection. No: Edema Neurological: Present: GCS=15, neuro-sensory fully intact. No focal neurological deficits. Skin: Present: Warm, Dry, Normal Color. No: Rashes Lymphatic: Present: OX3, NI, NC Psychiatric: Present: Alert, not agitated Vital Signs Reviewed: Yes Vital Signs Temp Pulse Resp BP Pulse Ox 04/06/17 13:49 99.9 F H 87 16 143/88 97 Temperature: Afebrile Blood Pressure: Normal Pulse: Regular Respiratory Rate: Normal Appearance: Positive for: Non-Toxic Pain Distress: None Mental Status: No: Agitated, Comatose Medical Decision Making ED Course and Treatment: 04/06/17 13:51 Impression: A 81 year old male who presents to the emergency department for evaluation of dehydration and loose stool. Differential Diagnosis included but are not limited to: Dehydration vs. c.diff vs. colitis Plan: -- CT abdomen pelvis -- Labs -- Chest X-ray -- Blood culture -- C-diff toxin and antigen -- Stool culture -- IVF -- Reassess and disposition Prior Visits: Notes and results from previous visits were reviewed. Patient was discharged home after an episode of acute mesenteric ischemia associated with SMA s/p angio. Was also treated for sepsis due to acute colitis. Progress Notes: 04/06/17 15:02 Chest X-ray interpreted by me: No cardiomegaly. No obvious infiltrates. Resolving right pleural effusion. 04/06/17 15:[address] ABD/PELVIS IMPRESSION: 1. Persistent or recurrent segmental colitis affecting rectosigmoid including the mid to distal sigmoid colon once again. Prior rectal fecal impaction is significantly improved. Local pericolic and perirectal reaction persists. No definite abscess or free air. 2. Cholelithiasis within a contracted gallbladder. 3. [id number] right psoas hematoma. 4. Gas seen in nondependent urinary bladder as well as dependent calcifications in the wall or urolithiasis. Clinically correlate. 5. Additional details above. 04/06/17 15:[address] Newman, accepted admission to med/surg pt in no distress aware of plan - Lab Interpretations Lab Results: 04/06/17 14:16 04/06/17 14:16 Lab Results 04/06/17 14:16: Sodium 134, Potassium 4.8, Chloride 108 H, Carbon Dioxide 22, Anion Gap 9 L, BUN 10, Creatinine 1.2, Est GFR ( Amer) > 60, Est GFR (Non -Af Amer) 58, Random Glucose 98, Calcium 7.7 L, Total Bilirubin 0.4, AST 18, ALT 22, Alkaline Phosphatase 48, Total Protein 5.5 L, Albumin 2.4 L, Globulin 3.1, Albumin/Globulin Ratio 0.8 L 04/06/17 14:16: PT 11.3, INR 1.05, APTT 30.4 04/06/17 14:16: WBC 16.5 H D, RBC 4.00, Hgb 12.0 L, Hct 34.1 L, MCV 85.3, MCH 30.0, MCHC 35.2, RDW 15.3 H, Plt Count 301, MPV 10.1, Neutrophils % (Manual) 85 H, Lymphocytes % (Manual) 11 L, Monocytes % (Manual) 3, Platelet Evaluation Normal - RAD Interpretation Radiology Orders: 04/06/17 13:44 ABD & PELVIS W/O PO OR IV CONT [CT] Stat 04/06/17 13:45 CHEST PORTABLE [RAD] Stat - Medication Orders Current Medication Orders: Vancomycin HCl (Vancomycin 1gm) 1 gm in 250 mls @ 133.333 mls/hr IVPB STAT STA PRN Reason: Protocol Stop: 04/06/17 16:26 Discontinued Medications Sodium Chloride (Sodium Chloride 0.9%) 500 mls @ 1,000 mls/hr IV .Q30M STA Stop: 04/06/17 14:14 Last Admin: 04/06/17 14:04 Dose: 1,000 mls/hr Piperacillin Sod/Tazobactam Sod (Zosyn 4.5 Gm In Ns 100ml) 4.5 gm in 100 mls @ 200 mls/hr IVPB STAT STA PRN Reason: Protocol Stop: 04/06/17 15:04 Last Admin: 04/06/17 15:34 Dose: 200 mls/hr - Scribe Statement The provider has reviewed the documentation as recorded by the Dorianibmary Cheng Provider Attestation: Provider Scribe Attestation: All medical record entries made by the Scribe were at my direction and personally dictated by me. I have reviewed the chart and agree that the record accurately reflects my personal performance of the history, physical exam, medical decision making, and the department course for this patient. I have also personally directed, reviewed, and agree with the discharge instructions and disposition. Disposition/Present on Arrival - Present on Arrival Any Indicators Present on Arrival: No History of DVT/PE: No History of Uncontrolled Diabetes: No Urinary Catheter: No History Surgical Site Infection Following: None - Disposition Have Diagnosis and Disposition been Completed?: Yes Diagnosis: Colitis Disposition: HOSPITALIZED Disposition Time: 15:47 Patient Plan: Admission Condition: FAIR Referrals: [facility], [Primary Care Provider] - Follow up with primary
[2017-04-06 14:21] LABS: MEAN CELL VOLUME 85.3 fL (80.0-105.0); MEAN CORPUSCULAR HGB CONC 35.2 g/dl (31.0-37.0); MEAN PLATELET VOLUME 10.1 fl (7.0-11.0); PLATELET COUNT 301 10^3/uL (120.0-450.0); RED CELL DISTRIBUTION WIDTH 15.3 % (11.5-14.5); WHITE BLOOD COUNT 16.5 10^3/ul (4.5-11.0)
[2017-04-06 14:31] LABS: ALB/GLOB RATIO 0.8 (1.1-1.8); ALBUMIN 2.4 g/dL (3.0-4.8); ALT/SGPT 22 U/L (7-56); AST/SGOT 18 U/L (15-59); BLOOD UREA NITROGEN 10 mg/dL (7-21); CALCIUM 7.7 mg/dL (8.4-10.5); GFR AFRICAN-AMERICAN > 60; GFR NON-AFRICAN AMERICAN 58; INR 1.05 (0.93-1.08); PARTIAL THROMBOPLASTIN TIME 30.4 Seconds (23.7-30.8); PROTHROMBIN TIME 11.3 Seconds (9.9-11.8)
[2017-04-06] MEDS ORDERED: Vancomycin 1gm in NS 250ml 1 GM/250 ML BAG IVPB STA (14:34)
[2017-04-06] MEDS ORDERED: Piperacill/Tazo 4.5gm in NS 4.5 GM/100 ML BAG IVPB STA (14:35)
[2017-04-06 14:54] LABS: LYMPHOCYTE 11 % (22.0-35.0); MONOCYTE 3 % (1.0-6.0); NEUTROPHIL 85 % (50.0-70.0); PLATELET ESTIMATE NORMAL (NORMAL)
--- NOTE | 2017-04-06 15:25 | RAD ---
HISTORY: Cough COMPARISON: 03/31/2017. FINDINGS: LUNGS: There is mild pulmonary venous congestion. PLEURA: There are bilateral small pleural effusions. CARDIOVASCULAR: There is mild cardiomegaly. Atherosclerotic aortic arch calcifications are present. . OSSEOUS STRUCTURES: No significant abnormalities. VISUALIZED UPPER ABDOMEN: Normal. OTHER FINDINGS: None. IMPRESSION: Small pleural effusions and mild pulmonary venous congestion.
--- NOTE | 2017-04-06 15:34 | CT ---
PROCEDURE: CT Abdomen and Pelvis without intravenous contrast HISTORY: diarrhea COMPARISON: None. TECHNIQUE: Technique. Contrast Dose: None Radiation dose: Total exam DLP = 529 mGy-cm. This CT exam was performed using one or more of the following dose reduction techniques: Automated exposure control, adjustment of the mA and/or kV according to patient size, and/or use of iterative reconstruction technique. FINDINGS: LOWER THORAX: Increased but still mild bilateral pleural effusions with local compressive atelectasis bilaterally at the bases. Underlying pneumonia is not excluded nevertheless. 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 LIVER: Unremarkable. No gross lesion or ductal dilatation. GALLBLADDER AND BILE DUCTS: Cholelithiasis is again appreciated. Gallbladder is contracted. Biliary tree poorly evaluated without intravenous contrast. PANCREAS: Grossly nonfocal appearing. SPLEEN: Unremarkable. ADRENALS: Unremarkable. No mass. KIDNEYS AND URETERS: Unremarkable. No hydronephrosis. No solid mass. [id number] right psoas hematoma is identified measuring 3.1 x 2.8 x 9.3 cm (transverse by anteroposterior by superoinferior dimensions). VASCULATURE: Atherosclerotic abdominal aorta again evident. No aortic aneurysm. BOWEL: Recurrent or chronic thickening of the mid to distal sigmoid colon is appreciate suggestive segmental colitis once again. Prior rectal fecal impaction improved appears significantly improved with liquid fecal material identified at the distal sigmoid and likely sparing the rectum though this is not definite given moderate distention of the rectum. Pericolic and right perirectal reactive changes suggests inflammatory or infectious process. Neoplasm not excluded. Ischemia is unlikely the rectum but is not completely excluded at the sigmoid segment. Plaque images contrast limits the interpretation of this examination significantly. Further clinical correlation is advised. APPENDIX: Unremarkable. Normal appendix. PERITONEUM: Unremarkable. No free fluid. No free air. LYMPH NODES: Unremarkable. No enlarged lymph nodes. BLADDER: Calcifications are seen the inferior urinary bladder which may reflect urolithiasis or mural calcifications. Trace gas seen nondependent urinary bladder suggestive of recent instrumentation. Clinically correlate further. REPRODUCTIVE: Enlarged prostate gland. BONES: No acute fracture. OTHER FINDINGS: Stomach is distended with retained fluid/food. IMPRESSION: 1. Persistent or recurrent segmental colitis affecting rectosigmoid including the mid to distal sigmoid colon once again. Prior rectal fecal impaction is significantly improved. Local pericolic and perirectal reaction persists. No definite abscess or free air. 2. Cholelithiasis within a contracted gallbladder. 3. [id number] right psoas hematoma. 4. Gas seen in nondependent urinary bladder as well as dependent calcifications in the wall or urolithiasis. Clinically correlate. 5. Additional details above.
[2017-04-06] MEDS: Meropenem 1g/NS 100mL IVPB 1 GM/100 ML PIGGYBACK IVPB SCH (21:40)
[2017-04-06 23:07] VITALS: BMI 25.1
[2017-04-07] MEDS: Meropenem 1g/NS 100mL IVPB 1 GM/100 ML PIGGYBACK IVPB SCH ×2 (09:46→22:49)
[2017-04-07] MEDS: Vancomycin 25 MG/ML PO SCH ×4 (09:47→22:47)
--- NOTE | 2017-04-07 13:21 | CP.PCM.CON ---
<Sofie Richardson - Last Filed: 04/07/17 13:06> History of Present Illness - History of Present Illness History of Present Illness: seen and examined at bedside earlier, chart reviewed. Request for consult is for colitis HPI: This is a 81-year-old male with a past medical history of CVA, dementia, chronic constipation, diabetes and sent to the ER by visiting nurse for dehydration and loose stools. This patient was discharged a day ago, for treatment of sepsis secondary to acute colitis and acute mesenteric ischemia associated with SMA status post angio. The patient is a poor historian, he is arousable but unable to answer questions appropriately, history was obtained from the medical chart and nursing staff. He does deny nausea, no vomiting or abdominal pain. The patient is reported to have had one loose p.m.,, no reports of overt GI bleed or acute overnight events. On admission he did have a CT scan of abdomen and pelvis with no contrast and it showed rectosigmoid hiatus, stomach retained food and fluid. Past medical history:uneven CVA, dementia, chronic constipation, hypertension, diabetes mellitus,recent acute mesenteric ischemia associated SMA status post angio Surgical history: Appendectomy, sebaceous cyst Social history: No history of smoking, EtOH, drugs Allergies no known drug allergies Medications: Reviewed as per MAR Family history: Contributory at this time Review of systems: Unable to review with patient , see HPI Past Patient History - Infectious Disease Hx of Infectious Diseases: None - Tetanus Immunizations Tetanus Immunization: Unknown - Past Social History Smoking Status: Former Smoker - CARDIAC Hx Cardiac Disorders: Yes Hx Hypercholesterolemia: Yes Hx Hypertension: Yes Hx Peripheral Edema: Yes (+1 pitting edema feet) - PULMONARY Hx Respiratory Disorders: No - NEUROLOGICAL Hx Neurological Disorder: (syncope) HX Cerebrovascular Accident: Yes (2014) Hx Dementia: Yes - HEENT Hx Macular Degeneration: Yes Other/Comment: egd for removal of foreign body 06/08/14 - RENAL Hx Chronic Kidney Disease: No - ENDOCRINE/METABOLIC Hx Diabetes Mellitus Type 2: Yes - HEMATOLOGICAL/ONCOLOGICAL Hx Blood Disorders: No - INTEGUMENTARY Other/Comment: reddened sacrum/ long curled thick toenails both feet/ unable to do proper skin assesment due to agitationrefusing to turn, has rash b/l groin lower abd and buttocks, left hand eccymotic, redness to left wrist, left 5th toe light purple in color - MUSCULOSKELETAL/RHEUMATOLOGICAL Hx Musculoskeletal Disorders: (b/l leg pain) Hx Falls: Yes (FREQUENT RECENT) Hx Unsteady Gait: Yes (w/ch can't walk/stand) - GASTROINTESTINAL Hx Gastrointestinal Disorders: No Other/Comment: egd for removal of foreigh body - GENITOURINARY/GYNECOLOGICAL Hx Incontinence: Yes Other/Comment: too weak to walk to bathroom/frequent falls - PSYCHIATRIC Hx Psychophysiologic Disorder: No Hx Depression: Yes Hx Emotional Abuse: No Hx Physical Abuse: No Other/Comment: up at night/pushes furniture/ jumps oob/ can become violent - SURGICAL HISTORY Hx Appendectomy: Yes Other/Comment: sebaceous cyst removal - ANESTHESIA Hx Anesthesia Reactions: Yes Hx Malignant Hyperthermia: No Meds Allergies/Adverse Reactions: Allergies Allergy/AdvReac Type Severity Reaction Status Date / Time No Known Allergies Allergy Verified 04/06/17 13:53 - Medications Medications: Current Medications Aspirin (Ecotrin) 81 mg PO DAILY [facility] Last Admin: 04/07/17 09:47 Dose: 81 mg Meropenem 1g/NS 100mL IVPB (Meropenem 1g/Ns 100ml Ivpb) 1 gm in 100 mls @ 100 mls/hr IVPB Q12 OMAR PRN Reason: Protocol Stop: 04/15/17 22:01 Last Admin: 04/07/17 09:46 Dose: 100 mls/hr Quetiapine Fumarate (Seroquel) 12.5 mg PO HS OMAR PRN Reason: Protocol Last Admin: 04/06/17 21:39 Dose: 12.5 mg Vancomycin HCl (Vancocin 25 Mg/Ml (Oral Use)) 125 mg PO QID OMAR PRN Reason: Protocol Last Admin: 04/07/17 09:47 Dose: 125 mg Physical Exam - Constitutional Appears: No Acute Distress - Head Exam Head Exam: NORMAL INSPECTION - Eye Exam Eye Exam: Normal appearance. absent: Scleral icterus - ENT Exam ENT Exam: Mucous Membranes Moist - Neck Exam Neck exam: Positive for: Normal Inspection - Respiratory Exam Respiratory Exam: NORMAL BREATHING PATTERN. absent: Respiratory Distress - Cardiovascular Exam Cardiovascular Exam: +S1, +S2 - GI/Abdominal Exam GI & Abdominal Exam: Normal Bowel Sounds, Soft. absent: Distended, Guarding, Rebound, Tenderness - Extremities Exam Extremities exam: Negative for: calf tenderness, pedal edema - Neurological Exam Additional comments: asleep but arousable, does not follow command, answers limited - Skin Skin Exam: Dry, Warm Results - Vital Signs Recent Vital Signs: Last Vital Signs Temp 98.7 F 04/07/17 06:00 Pulse 83 04/07/17 06:00 Resp 20 04/07/17 06:00 BP 159/90 H 04/07/17 06:00 Pulse Ox 93 L 04/07/17 06:00 - Labs Result Diagrams: 04/06/17 14:16 04/06/17 14:16 Assessment & Plan - Assessment and Plan (Free Text) Assessment: assessment: Dehydration Diarrhea, rule out C. difficile, status post CT scan showing rectosigmoiditis History of CVA Dementia Hypertension Diabetes mellitus H/O acute mesenteric ischemia status post angio Plan: Follow up stool for C. difficile and culture Started on oral vancomycin On IV antibiotics meropenem as per ID On aspirin Continue GI prophylaxis Continue DVT prophylaxis Monitor electrolytes Continue dysphagia diet as tolerated Thank you for this consult and for allowing us to participate in your patient's care will make further recommendations based upon clinical course. Seen and discussed with Dr. Monterroso. <Ivanna Monterroso V - Last Filed: 04/10/17 06:23> Meds - Medications Medications: Current Medications Albuterol/Ipratropium (Duoneb 3 Mg/0.5 Mg (3 Ml) Ud) 3 ml IH [id number] PRN PRN Reason: Cough and congestion Aspirin (Ecotrin) 81 mg PO DAILY [facility] Last Admin: 04/07/17 09:47 Dose: 81 mg Meropenem 1g/NS 100mL IVPB (Meropenem 1g/Ns 100ml Ivpb) 1 gm in 100 mls @ 100 mls/hr IVPB Q12 OMAR PRN Reason: Protocol Stop: 04/15/17 22:01 Last Admin: 04/07/17 22:49 Dose: 100 mls/hr Sodium Chloride (Sodium Chloride 0.9%) 1,000 mls @ 60 mls/hr IV .[id number] [facility] Last Admin: 04/07/17 20:25 Dose: 60 mls/hr Nystatin/Triamcinolone Acetonide (Nystatin/Triamcinolone Cream) 0 ea TOP BID OMAR Quetiapine Fumarate (Seroquel) 12.5 mg PO HS OMAR PRN Reason: Protocol Last Admin: 04/07/17 22:50 Dose: Not Given Vancomycin HCl (Vancocin 25 Mg/Ml (Oral Use)) 125 mg PO QID OMAR PRN Reason: Protocol Last Admin: 04/07/17 22:47 Dose: 125 mg Results - Vital Signs Recent Vital Signs: Last Vital Signs Temp 98.4 F 04/07/17 16:00 Pulse 80 04/07/17 16:00 Resp 20 04/07/17 16:00 BP 160/84 H 04/07/17 16:00 Pulse Ox 94 L 04/07/17 16:00 - Labs Result Diagrams: 04/09/17 16:00 04/09/17 16:00 Attending/Attestation - Attestation I have personally seen and examined this patient.: Yes I have fully participated in the care of the patient.: Yes I have reviewed all pertinent clinical information: Yes Notes (Text): t
--- NOTE | 2017-04-07 13:24 | HP ---
HISTORY OF PRESENT ILLNESS: Mr. Ennis is a 81-year-old male admitted to the hospital for dehydration and loose stools. He was recently discharged from the hospital. He has sigmoid colitis. CAT scan of the abdomen showed persistent colitis. CAT scan also noticed right psoas hematoma. Also has elevated white count of 16,000 and anemia with hemoglobin of 12. He has history of hypertension, blood pressure is stable with current medication; history of CVA in 2015; diabetes mellitus type 2, blood sugar controlled on current medications. He is complaining of weak, unable to walk, history of frequent falls. PAST MEDICAL HISTORY: Hypertension, diabetes mellitus type 2, macular degeneration, history of recurrent fall, gait disorder, incontinence and depression. PAST SURGICAL HISTORY: Appendectomy. FAMILY HISTORY: Noncontributory. No positive history of family in father or mother. PERSONAL HISTORY: Former smoker. No history of alcohol abuse. SOCIAL HISTORY: Lives at home. ALLERGIES: NO KNOWN DRUG ALLERGIES. REVIEW OF SYSTEMS: As per HPI, 12-point review of systems reviewed and negative PHYSICAL EXAMINATION GENERAL: Comfortable in bed, in no acute distress. VITAL SIGNS: Temperature 99.9, heart rate 87, respiratory rate 16 per minute, blood pressure 145/80, pulse ox is 97% on room air. HEENT: Normal. Oral mucosa dry. NECK: No lymphadenopathy. CARDIOVASCULAR: Within normal limits. LUNGS: Air entry present and equal bilaterally. No added sounds. ABDOMEN: Soft, nontender. No hepatosplenomegaly. EXTREMITIES: No edema. SKIN: Normal. No petechiae. No rash. SPINE: Normal. TICKET WRITER: Alert and oriented x3. No focal sensory or motor deficit. LABORATORY DATA: White count 16.5, hemoglobin 12, hematocrit 34.1, platelet count 301. Sodium 134, potassium 4.8, chloride 108, BUN 10, creatinine 1.2, glucose 98. ASSESSMENT: 1. Rectosigmoid colitis, persistent. 2. Cholelithiasis. 3. Psoas hematoma. 4. Hypertension. 5. Diabetes mellitus type 2. 6. Leukocytosis. 7. Anemia. 8. Dehydration PLAN: We will start antibiotics meropenem q. 12 hours, vancomycin 125 mg p.o. q.i.d., Seroquel 12.5 mg at bedtime, aspirin [address] GI consultation Dr. Currie requested. Dysphagia diet. Blood work shows anemia, leukocytosis,. We will continue to monitor blood counts. Coags are normal. Start IVF - normal saline at 60 cc/hr for dehydration. Judy Harper MD MTDD
--- NOTE | 2017-04-07 16:01 | CP.PCM.CON ---
History of Present Illness - History of Present Illness History of Present Illness: 81 year old male with PMH of CVA, HTN, DM, dementia, chronic renal failure, macular degeneration, history of urinary retention was recently in [facility] because of ischemic colitis with angioplasty done on the RAINA and SMA. He was then sent home, but then developed loose stools and is sent here for further evaluation. There is no note of fever, no vomiting, no loss of consciousness, no convulsions. Further review of systems is unobtainable because of the patient's dementia. Infectious Diseases consult is requested to further evaluate and manage. Review of Systems - Review of Systems Systems not reviewed;Unavailable: Dementia Past Patient History - Infectious Disease Hx of Infectious Diseases: None - Tetanus Immunizations Tetanus Immunization: Unknown - Past Social History Smoking Status: Former Smoker - CARDIAC Hx Cardiac Disorders: Yes Hx Hypercholesterolemia: Yes Hx Hypertension: Yes Hx Peripheral Edema: Yes (+1 pitting edema feet) - PULMONARY Hx Respiratory Disorders: No - NEUROLOGICAL Hx Neurological Disorder: (syncope) HX Cerebrovascular Accident: Yes (2014) Hx Dementia: Yes - HEENT Hx Macular Degeneration: Yes Other/Comment: egd for removal of foreign body 06/08/14 - RENAL Hx Chronic Kidney Disease: No - ENDOCRINE/METABOLIC Hx Diabetes Mellitus Type 2: Yes - HEMATOLOGICAL/ONCOLOGICAL Hx Blood Disorders: No - INTEGUMENTARY Other/Comment: reddened sacrum/ long curled thick toenails both feet/ unable to do proper skin assesment due to agitationrefusing to turn, has rash b/l groin lower abd and buttocks, left hand eccymotic, redness to left wrist, left 5th toe light purple in color - MUSCULOSKELETAL/RHEUMATOLOGICAL Hx Musculoskeletal Disorders: (b/l leg pain) Hx Falls: Yes (FREQUENT RECENT) Hx Unsteady Gait: Yes (w/ch can't walk/stand) - GASTROINTESTINAL Hx Gastrointestinal Disorders: No Other/Comment: egd for removal of foreigh body - GENITOURINARY/GYNECOLOGICAL Hx Incontinence: Yes Other/Comment: too weak to walk to bathroom/frequent falls - PSYCHIATRIC Hx Psychophysiologic Disorder: No Hx Depression: Yes Hx Emotional Abuse: No Hx Physical Abuse: No Other/Comment: up at night/pushes furniture/ jumps oob/ can become violent - SURGICAL HISTORY Hx Appendectomy: Yes Other/Comment: sebaceous cyst removal - ANESTHESIA Hx Anesthesia Reactions: Yes Hx Malignant Hyperthermia: No Meds Allergies/Adverse Reactions: Allergies Allergy/AdvReac Type Severity Reaction Status Date / Time No Known Allergies Allergy Verified 04/06/17 13:53 - Medications Medications: Current Medications Aspirin (Ecotrin) 81 mg PO DAILY [facility] Meropenem 1g/NS 100mL IVPB (Meropenem 1g/Ns 100ml Ivpb) 1 gm in 100 mls @ 100 mls/hr IVPB Q12 OMAR PRN Reason: Protocol Stop: 04/15/17 22:01 Last Admin: 04/06/17 21:40 Dose: 100 mls/hr Quetiapine Fumarate (Seroquel) 12.5 mg PO HS OMAR PRN Reason: Protocol Last Admin: 04/06/17 21:39 Dose: 12.5 mg Physical Exam - Constitutional Appears: Non-toxic, No Acute Distress - Head Exam Head Exam: NORMAL INSPECTION - Neck Exam Neck exam: Negative for: Meningismus - Respiratory Exam Respiratory Exam: Decreased Breath Sounds - Cardiovascular Exam Cardiovascular Exam: +S1, +S2 - GI/Abdominal Exam GI & Abdominal Exam: Soft. absent: Tenderness Results - Vital Signs Recent Vital Signs: Last Vital Signs Temp 99.9 F H 04/06/17 22:45 Pulse 81 04/06/17 22:45 Resp 17 04/06/17 22:45 BP 146/90 04/06/17 22:45 Pulse Ox 97 04/06/17 17:23 - Labs Result Diagrams: 04/06/17 14:16 04/06/17 14:16 Assessment & Plan - Assessment and Plan (Free Text) Plan: Assessment Diarrhea with associated rectosigmoid colitis, R/O C. diff. 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 diff. follow up GI evaluation will monitor clinically
--- NOTE | 2017-04-07 16:31 | CARD ---
APPROVED REPORT EKG Measurement Heart [id number] <Conclusion> Sinus rhythm with premature ventricular complexes or fusion complexes Nonspecific intraventricular conduction delay Nonspecific T wave abnormality Abnormal ECG
[2017-04-07] MEDS: Sodium Chloride 0.9% 1,000 ML IV SCH (20:25)
[2017-04-08] MEDS: Albuterol-Ipratrop 3 mg / 0.5 (3 ml) UD IH PRN (09:42)
[2017-04-08] MEDS: Meropenem 1g/NS 100mL IVPB 1 GM/100 ML PIGGYBACK IVPB SCH ×2 (10:07→21:17)
[2017-04-08] MEDS: Nystatin-Triamcinolone Cream(30 gm) TOP SCH ×2 (10:07→17:50)
[2017-04-08 11:14] LABS: BASO # 0.06 K/mm3 (0.0-2.0); BASO % 0.4 % (0.0-3.0); EOS # 0.1 (0.0-0.7); EOS % 0.7 % (1.5-5.0); GRAN # 14.51 (1.4-6.5); GRAN % 86.6 % (50.0-68.0); HEMOGLOBIN 11.6 gm/dL (14.0-18.0); MEAN CORPUSCULAR HEMOGLOBIN 29.5 pg (25.0-35.0); MEAN CORPUSCULAR HGB CONC 33.9 g/dl (31.0-37.0); MEAN PLATELET VOLUME 9.4 fl (7.0-11.0); MONO # 1.1 (0.1-0.6); MONO % 6.3 % (1.0-6.0); PLATELET COUNT 357 10^3/uL (120.0-450.0); RBC 3.93 10^6/uL (3.5-6.1); RED CELL DISTRIBUTION WIDTH 15.4 % (11.5-14.5); WHITE BLOOD COUNT 16.7 10^3/ul (4.5-11.0)
[2017-04-08 11:21] LABS: BLOOD UREA NITROGEN 10 mg/dL (7-21); CALCIUM 7.7 mg/dL (8.4-10.5); GFR AFRICAN-AMERICAN > 60; GFR NON-AFRICAN AMERICAN > 60
--- NOTE | 2017-04-08 12:37 | PN ---
DATE: 04/08/2017 SUBJECTIVE: The patient is in bed, in no acute distress. PHYSICAL EXAMINATION: VITAL SIGNS: Temperature of 98, blood pressure is 160/80, and respiratory rate of 20. HEENT: Examination of HEENT is unremarkable. NECK: Supple. LUNGS: Decreased breath sounds. HEART: Normal S1 and S2. ABDOMEN: Soft and nontender. LABORATORY DATA: Examination reveals a white count of 16,000, hemoglobin of 12, and platelets of 301. Chemistries reveals a BUN of 10 and creatinine of 1.2. Microbiology reveals a blood cultures are negative and stool for C. diff. DIAGNOSTIC DATA: CAT scan of the abdomen and pelvis is noted. Chest x-ray is noted bilateral effusion and mild pulmonary congestion. DATABASE: Microbiology reveals a blood cultures are no growth for 24 hours and stool for C. diff is negative toxin and negative antigen. REVIEW OF ORDERS: Reveals the patient to be on p.o. vancomycin and IV meropenem. ASSESSMENT AND PLAN: This is a 81-year-old male with a history of cerebrovascular accident, hypertension, diabetes, dementia, chronic renal failure,macular degeneration, history of urinary retention with ischemic colitis, angioplasty, with inferior mesenteric artery and superior mesenteric artery with send home and develop loose stools, and now with stools for Clostridium difficile antigen and toxin negative. Speaks against pseudomembranous colitis. The patient does have colitis, currently on meropenem. We will discontinue the p.o. vancomycin since toxin and antigen are both negative. We will check on the final cultures and waiting for stool cultures, I will make further recommendations. Moe Zamora MD
[2017-04-08] MEDS: Sodium Chloride 0.9% 1,000 ML IV SCH (21:18)
[2017-04-09] MEDS: Meropenem 1g/NS 100mL IVPB 1 GM/100 ML PIGGYBACK IVPB SCH ×2 (09:00→21:44)
[2017-04-09] MEDS: Nystatin-Triamcinolone Cream(30 gm) TOP SCH ×2 (09:00→17:02)
--- NOTE | 2017-04-09 10:43 | PN ---
DATE: 04/09/2017 SUBJECTIVE: The patient is in bed in no acute distress. PHYSICAL EXAMINATION: VITAL SIGNS: Temperature is 98, blood pressure is 130/80, respiratory rate of 22. HEENT: Unremarkable. NECK: Supple. LUNGS: Decreased breath sounds. HEART: Normal S1 and S2. ABDOMEN: Soft and nontender. LABORATORY DATA: [place] [address], hemoglobin of 11, platelets of 357. Chemistries reveal BUN of 10, creatinine of 1.1. Microbiology has noted a blood cultures to be negative and stool cultures are pending. The stool for C. diff, antigen and toxin are negative. Review of orders reveals the patient is on meropenem. ASSESSMENT AND PLAN: He is a 81-year-old male with a history of cerebrovascular accident, hypertension, diabetes, dementia, chronic renal failure, macular degeneration, urinary retention, ischemic colitis, angioplasty with an inferior mesenteric artery and superior mesenteric artery *------* home, now developed loose stools with Clostridium diff antigen and toxin negative and colitis currently on meropenem, awaiting for stool culture results. We will follow with you. Moe Zamora MD
[2017-04-09] MEDS: Albuterol-Ipratrop 3 mg / 0.5 (3 ml) UD IH PRN (11:17)
--- NOTE | 2017-04-09 13:37 | CP.PCM.CON ---
<Norma Macdonald - Last Filed: 04/09/17 14:55> History of Present Illness - History of Present Illness History of Present Illness: PGY-2 Neurology consult note for Dr Casey. Reason for consult: AMS. Patient is a 81 y/o with pmh of CVA ( 2014), htn, DM2, macular degeneration, depression, urinary incontinent, recently discharged s/p SMA and RAINA angioplasty sent by [facility] 2nd to loose stool and dehydration. Patient has baseline cognitive impairment while reviewing charts. Neurology is consulted for worsening in his mental status. Patient unable to give any history. Patient appears very drowsy and is hyperventilating. Unable to obtain 12 point ROS due to mental status. PMH: A stated above PSH: Appendectomy, angioplasty of RAINA and SMA. Review of Systems - Review of Systems Systems not reviewed;Unavailable: Altered Mental Status Past Patient History - Infectious Disease Hx of Infectious Diseases: None - Tetanus Immunizations Tetanus Immunization: Unknown - Past Social History Smoking Status: Former Smoker - CARDIAC Hx Cardiac Disorders: Yes Hx Hypercholesterolemia: Yes Hx Hypertension: Yes Hx Peripheral Edema: Yes (+1 pitting edema feet) - PULMONARY Hx Respiratory Disorders: No - NEUROLOGICAL Hx Neurological Disorder: (syncope) HX Cerebrovascular Accident: Yes (2014) Hx Dementia: Yes - HEENT Hx Macular Degeneration: Yes Other/Comment: egd for removal of foreign body 06/08/14 - RENAL Hx Chronic Kidney Disease: No - ENDOCRINE/METABOLIC Hx Diabetes Mellitus Type 2: Yes - HEMATOLOGICAL/ONCOLOGICAL Hx Blood Disorders: No - INTEGUMENTARY Other/Comment: reddened sacrum/ long curled thick toenails both feet/ unable to do proper skin assesment due to agitationrefusing to turn, has rash b/l groin lower abd and buttocks, left hand eccymotic, redness to left wrist, left 5th toe light purple in color - MUSCULOSKELETAL/RHEUMATOLOGICAL Hx Musculoskeletal Disorders: (b/l leg pain) Hx Falls: Yes (FREQUENT RECENT) Hx Unsteady Gait: Yes (w/ch can't walk/stand) - GASTROINTESTINAL Hx Gastrointestinal Disorders: No Other/Comment: egd for removal of foreigh body - GENITOURINARY/GYNECOLOGICAL Hx Incontinence: Yes Other/Comment: too weak to walk to bathroom/frequent falls - PSYCHIATRIC Hx Psychophysiologic Disorder: No Hx Depression: Yes Hx Emotional Abuse: No Hx Physical Abuse: No Other/Comment: up at night/pushes furniture/ jumps oob/ can become violent - SURGICAL HISTORY Hx Appendectomy: Yes Other/Comment: sebaceous cyst removal - ANESTHESIA Hx Anesthesia Reactions: Yes Hx Malignant Hyperthermia: No Meds Allergies/Adverse Reactions: Allergies Allergy/AdvReac Type Severity Reaction Status Date / Time No Known Allergies Allergy Verified 04/06/17 13:53 - Medications Medications: Current Medications Albuterol/Ipratropium (Duoneb 3 Mg/0.5 Mg (3 Ml) Ud) 3 ml IH [id number] PRN PRN Reason: Cough and congestion Last Admin: 04/09/17 11:17 Dose: 3 ml Aspirin (Ecotrin) 81 mg PO DAILY OMAR Last Admin: 04/09/17 09:22 Dose: Not Given Meropenem 1g/NS 100mL IVPB (Meropenem 1g/Ns 100ml Ivpb) 1 gm in 100 mls @ 100 mls/hr IVPB Q12 OMAR PRN Reason: Protocol Stop: 04/15/17 22:01 Last Admin: 04/09/17 09:00 Dose: 100 mls/hr Sodium Chloride (Sodium Chloride 0.9%) 1,000 mls @ 60 mls/hr IV .[id number] OMAR Last Admin: 04/08/17 21:18 Dose: 60 mls/hr Nystatin/Triamcinolone Acetonide (Nystatin/Triamcinolone Cream) 0 ea TOP BID OMAR Last Admin: 04/09/17 09:00 Dose: 1 applic Quetiapine Fumarate (Seroquel) 12.5 mg PO HS OMAR PRN Reason: Protocol Last Admin: 04/08/17 21:45 Dose: Not Given Physical Exam - Constitutional Appears: No Acute Distress, Cachectic, Chronically Ill - Head Exam Head Exam: ATRAUMATIC, NORMAL INSPECTION, NORMOCEPHALIC - Eye Exam Eye Exam: EOMI, Normal appearance, PERRL. absent: Scleral icterus Pupil Exam: NORMAL ACCOMODATION, PERRL - ENT Exam ENT Exam: Mucous Membranes Moist - Neck Exam Neck exam: Positive for: Normal Inspection. Negative for: Meningismus - Respiratory Exam Respiratory Exam: Wheezes. absent: Rales, Rhonchi, Respiratory Distress, Stridor Additional comments: hyperventilation Venti mask in place. - Cardiovascular Exam Cardiovascular Exam: Tachycardia, REGULAR RHYTHM, +S1, +S2 - GI/Abdominal Exam GI & Abdominal Exam: Normal Bowel Sounds, Soft. absent: Distended - Extremities Exam Extremities exam: Positive for: pedal edema - Neurological Exam Additional comments: lethargic and drowsy, aroused to verbal and tactile stimuli. Doesn't follow commands. Eyes were open spontaneously. Pupils reactive to light. Reflexes 2+ throughout in the Achilles tender and patella tendons b/l No nuchal rigidity. Negative babinski No clonus. Patient is able to wiggle his toes spontaneously, not moving his upper extremities even with commands. - Psychiatric Exam Psychiatric exam: Depressed - Skin Skin Exam: Diaphoretic, Warm Results - Vital Signs Recent Vital Signs: Last Vital Signs Temp 100.4 F H 04/09/17 06:00 Pulse 97 H 04/09/17 06:00 Resp 25 H 04/09/17 06:00 BP 160/94 H 04/09/17 06:00 Pulse Ox 88 L 04/09/17 06:00 - Labs Result Diagrams: 04/08/17 11:00 04/08/17 11:00 Assessment & Plan - Assessment and Plan (Free Text) Assessment: 81 y/o with pmh of CVA ( 2015), htn, DM2, macular degeneration, depression, urinary incontinent, recently discharged s/p SMA and RAINA angioplasty sent by [facility] 2nd to loose stool and dehydration, neurology consulted 2nd to worsening in mental status. Patient is currently septic. CT head back on 03/28 with old lacunar infarct, old right cerebellar infarct and old right brainstem infarct. Impression: Transient delirium likely 2nd to toxic metabolic encephalopathy superimposed with baseline cognitive impairment probably worsened by his current status. Plan: - Check and correct electrolytes accordingly - Keep SBP between 130-140s. - Treat the underlying infection - Maintain adequate hydration - c/w medical management - PT/OT eval - Thank you for consulting Dr Casey. Patient seen, examined, and discussed with Dr Casey. - Date & Time Date: 04/09/17 Time: 13:55 <Watson Casey - Last Filed: 04/09/17 20:58> Meds - Medications Medications: Current Medications Albuterol/Ipratropium (Duoneb 3 Mg/0.5 Mg (3 Ml) Ud) 3 ml IH [id number] PRN PRN Reason: Cough and congestion Last Admin: 04/09/17 11:17 Dose: 3 ml Aspirin (Ecotrin) 81 mg PO DAILY [facility] Last Admin: 04/09/17 09:22 Dose: Not Given Meropenem 1g/NS 100mL IVPB (Meropenem 1g/Ns 100ml Ivpb) 1 gm in 100 mls @ 100 mls/hr IVPB Q12 OMAR PRN Reason: Protocol Stop: 04/15/17 22:01 Last Admin: 04/09/17 09:00 Dose: 100 mls/hr Sodium Chloride (Sodium Chloride 0.9%) 1,000 mls @ 60 mls/hr IV .[id number] [facility] Last Admin: 04/08/17 21:18 Dose: 60 mls/hr Nystatin/Triamcinolone Acetonide (Nystatin/Triamcinolone Cream) 0 ea TOP BID OMAR Last Admin: 04/09/17 17:02 Dose: 1 applic Quetiapine Fumarate (Seroquel) 12.5 mg PO HS OMAR PRN Reason: Protocol Last Admin: 04/08/17 21:45 Dose: Not Given Results - Vital Signs Recent Vital Signs: Last Vital Signs Temp 98.4 F 04/09/17 20:30 Pulse 100 H 04/09/17 20:30 Resp 21 04/09/17 20:30 BP 137/84 04/09/17 20:30 Pulse Ox 98 04/09/17 20:30 - Labs Result Diagrams: 04/09/17 16:00 04/09/17 16:00 Labs: Laboratory Results - last 24 hr 04/09/17 04/09/17 16:00 16:00 WBC 17.1 H RBC 3.41 L Hgb 10.1 L Hct 29.4 L MCV 86.2 MCH 29.6 MCHC 34.4 RDW 15.2 H Plt Count 337 MPV 9.2 Gran % 88.3 H Lymph % (Auto) 4.6 L Banks % (Auto) 6.5 H Eos % (Auto) 0.1 L Baso % (Auto) 0.5 Gran # 15.13 H Lymph # 0.8 L Banks # 1.1 H Eos # 0.0 Baso # 0.08 Sodium 131 L Potassium 3.9 Chloride 105 Carbon Dioxide 18 L Anion Gap 12 BUN 13 Creatinine 1.0 Est GFR ( Amer) > 60 Est GFR (Non-Af Amer) > 60 Random Glucose 69 L Calcium 7.3 L Attending/Attestation - Attestation I have personally seen and examined this patient.: Yes I have fully participated in the care of the patient.: Yes I have reviewed all pertinent clinical information: Yes
--- NOTE | 2017-04-09 14:46 | CT ---
PROCEDURE: CT HEAD WITHOUT CONTRAST. HISTORY: AMS COMPARISON: 03/28/2017 TECHNIQUE: Axial computed tomography images were obtained through the head/brain without intravenous contrast. Radiation dose: Total exam DLP = 822.62 mGy-cm. This CT exam was performed using one or more of the following dose reduction techniques: Automated exposure control, adjustment of the mA and/or kV according to patient size, and/or use of iterative reconstruction technique. FINDINGS: HEMORRHAGE: No intracranial hemorrhage. BRAIN: No mass effect or edema. No evidence of acute infarct. Moderate atrophy and moderate chronic periventricular/ deep white matter microvascular ischemic change. Please note that evaluation of the posterior fossa is limited due to patient motion artifact. Old right cerebellar hemispheric infarct noted. Previously evident right pontine lacunae is not visualized on this examination, likely due to patient motion. Old small left lentiform nucleus lacunar infarct. VENTRICLES: Unremarkable. No hydrocephalus. CALVARIUM: Unremarkable. PARANASAL SINUSES: Retention cyst/polyp in the inferior right maxillary antrum. Mild chronic ethmoid sinusitis. MASTOID AIR CELLS: There is trace bilateral mastoid effusion. Small amount of fluid/soft tissue density seen in right antrum and middle ear cavity. OTHER FINDINGS: None. IMPRESSION: No intracranial mass, hemorrhage or evidence of acute infarct. Old right cerebellar hemispheric infarct. Old left basal ganglia lacune. Chronic microvascular white matter ischemic change. Age-appropriate atrophy. Trace bilateral mastoid effusion and fluid in right antrum.
[2017-04-09 16:06] LABS: BASO # 0.08 K/mm3 (0.0-2.0); BASO % 0.5 % (0.0-3.0); EOS % 0.1 % (1.5-5.0); GRAN # 15.13 (1.4-6.5); GRAN % 88.3 % (50.0-68.0); HEMOGLOBIN 10.1 gm/dL (14.0-18.0); LYMPH # 0.8 (1.2-3.4); LYMPH % 4.6 % (22.0-35.0); MEAN CELL VOLUME 86.2 fL (80.0-105.0); MEAN CORPUSCULAR HEMOGLOBIN 29.6 pg (25.0-35.0); MEAN CORPUSCULAR HGB CONC 34.4 g/dl (31.0-37.0); MEAN PLATELET VOLUME 9.2 fl (7.0-11.0); MONO # 1.1 (0.1-0.6); MONO % 6.5 % (1.0-6.0); PLATELET COUNT 337 10^3/uL (120.0-450.0); RBC 3.41 10^6/uL (3.5-6.1); RED CELL DISTRIBUTION WIDTH 15.2 % (11.5-14.5); WHITE BLOOD COUNT 17.1 10^3/ul (4.5-11.0)
[2017-04-09 16:27] LABS: BLOOD UREA NITROGEN 13 mg/dL (7-21); CALCIUM 7.3 mg/dL (8.4-10.5); GFR AFRICAN-AMERICAN > 60; GFR NON-AFRICAN AMERICAN > 60
--- NOTE | 2017-04-09 20:42 | CP.PCM.PN ---
Subjective - Date & Time of Evaluation Date of Evaluation: 04/08/17 Time of Evaluation: 11:00 - Subjective Subjective: 04/08/2017 HISTORY OF PRESENT ILLNESS: Mr. Ennis is a 81-year-old male admitted to the hospital for dehydration and loose stools. He was recently discharged from the hospital. He has sigmoid colitis. CAT scan of the abdomen showed persistent colitis. CAT scan also noticed right psoas hematoma. Also has elevated white count of 16,000 and anemia with hemoglobin of 12. He has history of hypertension, blood pressure is stable with current medication; history of CVA in 2015; diabetes mellitus type 2, blood sugar controlled on current medications. He is complaining of weak, unable to walk, history of frequent falls. he is currently on IV antibiotics. PAST MEDICAL HISTORY: Hypertension, diabetes mellitus type 2, macular degeneration, history of recurrent fall, gait disorder, incontinence and depression. PAST SURGICAL HISTORY: Appendectomy. FAMILY HISTORY: Noncontributory. No positive history of family in father or mother. PERSONAL HISTORY: Former smoker. No history of alcohol abuse. SOCIAL HISTORY: Lives at home. ALLERGIES: NO KNOWN DRUG ALLERGIES. REVIEW OF SYSTEMS: As per HPI, 12-point review of systems reviewed and negative PHYSICAL EXAMINATION GENERAL: Comfortable in bed, in no acute distress. VITAL SIGNS: reviewed. HEENT: Normal. Oral mucosa dry. NECK: No lymphadenopathy. CARDIOVASCULAR: Within normal limits. LUNGS: Air entry present and equal bilaterally. No added sounds. ABDOMEN: Soft, nontender. No hepatosplenomegaly. EXTREMITIES: No edema. SKIN: Normal. No petechiae. No rash. SPINE: Normal. CREATIVE INTERN: drowsy, arousable. No focal sensory or motor deficit. LABORATORY DATA: reviewed. ASSESSMENT: 1. Rectosigmoid colitis, persistent. 2. Cholelithiasis. 3. Psoas hematoma. 4. Hypertension. 5. Diabetes mellitus type 2. 6. Leukocytosis. 7. Anemia. 8. Dehydration PLAN: continue meropenem q. 12 hours, vancomycin 125 mg p.o. q.i.d., c-diff pending. stool culture pending. ID consult Dr. Sherwood appreciated. Seroquel 12.5 mg at bedtime, aspirin 81 mg daily. GI consultation Dr. Currie appreciated. . Dysphagia diet. Blood work shows anemia, leukocytosis,. We will continue to monitor blood counts. Coags are normal. IVF - normal saline at 60 cc/hr to continue. . medical records reviewed. Judy Harper MD Objective - Vital Signs/Intake and Output Vital Signs (last 24 hours): Temp Pulse Resp BP Pulse Ox 99.9 F H 99 H 22 157/83 H 97 04/09/17 16:00 04/09/17 16:00 04/09/17 16:00 04/09/17 16:00 04/09/17 16:00 - Medications Medications: Current Medications Albuterol/Ipratropium (Duoneb 3 Mg/0.5 Mg (3 Ml) Ud) 3 ml IH [id number] PRN PRN Reason: Cough and congestion Last Admin: 04/09/17 11:17 Dose: 3 ml Aspirin (Ecotrin) 81 mg PO DAILY OMAR Last Admin: 04/09/17 09:22 Dose: Not Given Meropenem 1g/NS 100mL IVPB (Meropenem 1g/Ns 100ml Ivpb) 1 gm in 100 mls @ 100 mls/hr IVPB Q12 OMAR PRN Reason: Protocol Stop: 04/15/17 22:01 Last Admin: 04/09/17 09:00 Dose: 100 mls/hr Sodium Chloride (Sodium Chloride 0.9%) 1,000 mls @ 60 mls/hr IV .[id number] OMAR Last Admin: 04/08/17 21:18 Dose: 60 mls/hr Nystatin/Triamcinolone Acetonide (Nystatin/Triamcinolone Cream) 0 ea TOP BID OMAR Last Admin: 04/09/17 17:02 Dose: 1 applic Quetiapine Fumarate (Seroquel) 12.5 mg PO HS OMAR PRN Reason: Protocol Last Admin: 04/08/17 21:45 Dose: Not Given - Labs Labs: 04/09/17 16:00 04/09/17 16:00 PT 11.3 Seconds (9.9-11.8) 04/06/17 14:16 INR 1.05 (0.93-1.08) 04/06/17 14:16 APTT 30.4 Seconds (23.7-30.8) 04/06/17 14:16
--- NOTE | 2017-04-09 20:49 | CP.PCM.PN ---
Subjective - Date & Time of Evaluation Date of Evaluation: 04/09/17 Time of Evaluation: 13:00 - Subjective Subjective: Mr. Ennis is a 81-year-old male admitted to the hospital for dehydration and loose stools. CAT scan of the abdomen showed persistent colitis. CAT scan also noticed right psoas hematoma. Also has elevated white count of 16,000 and anemia with hemoglobin of 12. He has history of hypertension, blood pressure is stable with current medication; history of CVA in 2015; diabetes mellitus type 2, blood sugar controlled on current medications. he is non verbal. Drowsy, more alert today. Poor PO intake. Objective - Vital Signs/Intake and Output Vital Signs (last 24 hours): Temp Pulse Resp BP Pulse Ox 99.9 F H 99 H 22 157/83 H 97 04/09/17 16:00 04/09/17 16:00 04/09/17 16:00 04/09/17 16:00 04/09/17 16:00 - Medications Medications: Current Medications Albuterol/Ipratropium (Duoneb 3 Mg/0.5 Mg (3 Ml) Ud) 3 ml IH [id number] PRN PRN Reason: Cough and congestion Last Admin: 04/09/17 11:17 Dose: 3 ml Aspirin (Ecotrin) 81 mg PO DAILY [facility] Last Admin: 04/09/17 09:22 Dose: Not Given Meropenem 1g/NS 100mL IVPB (Meropenem 1g/Ns 100ml Ivpb) 1 gm in 100 mls @ 100 mls/hr IVPB Q12 OMAR PRN Reason: Protocol Stop: 04/15/17 22:01 Last Admin: 04/09/17 09:00 Dose: 100 mls/hr Sodium Chloride (Sodium Chloride 0.9%) 1,000 mls @ 60 mls/hr IV .[id number] OMAR Last Admin: 04/08/17 21:18 Dose: 60 mls/hr Nystatin/Triamcinolone Acetonide (Nystatin/Triamcinolone Cream) 0 ea TOP BID OMAR Last Admin: 04/09/17 17:02 Dose: 1 applic Quetiapine Fumarate (Seroquel) 12.5 mg PO HS OMAR PRN Reason: Protocol Last Admin: 04/08/17 21:45 Dose: Not Given - Labs Labs: 04/09/17 16:00 04/09/17 16:00 PT 11.3 Seconds (9.9-11.8) 04/06/17 14:16 INR 1.05 (0.93-1.08) 04/06/17 14:16 APTT 30.4 Seconds (23.7-30.8) 04/06/17 14:16 - Constitutional Appears: Confused, Chronically Ill - Head Exam Head Exam: ATRAUMATIC, NORMAL INSPECTION, NORMOCEPHALIC - Eye Exam Eye Exam: Normal appearance Pupil Exam: NORMAL ACCOMODATION - ENT Exam ENT Exam: Mucous Membranes Moist - Neck Exam Neck Exam: Full ROM, Normal Inspection - Respiratory Exam Respiratory Exam: Clear to Ausculation Bilateral, NORMAL BREATHING PATTERN - Cardiovascular Exam Cardiovascular Exam: REGULAR RHYTHM, +S1, +S2 - GI/Abdominal Exam GI & Abdominal Exam: Soft, Normal Bowel Sounds - Extremities Exam Extremities Exam: Normal Capillary Refill, Normal Inspection - Back Exam Back Exam: NORMAL INSPECTION - Neurological Exam Neurological Exam: Alert, Awake, Normal Gait, Oriented x3 - Psychiatric Exam Psychiatric exam: Normal Affect - Skin Skin Exam: Normal Color, Warm Assessment and Plan - Assessment and Plan (Free Text) Assessment: ASSESSMENT: 1. Rectosigmoid colitis, persistent. 2. Cholelithiasis. 3. Psoas hematoma. 4. Hypertension. 5. Diabetes mellitus type 2. 6. Leukocytosis. 7. Anemia. 8. Dehydration 9. Altered mental status PLAN: continue meropenem q. 12 hours, vancomycin 125 mg p.o. q.i.d., c-diff pending. stool cultures negative. . ID consult Dr. Sherwood appreciated. Seroquel 12.5 mg at bedtime, aspirin 81 mg daily. GI consultation Dr. Currie appreciated. . Dysphagia diet. Continue IVF NS at 60 cc/hr. CT head stat for altered mental status. Neuro consult with Dr. Casey requested. Leukocytosis : WC increased to 17,000,. on Iv antibiotics. CT head reviewed. No acute changes. Judy Harper MD
[2017-04-10] MEDS: Sodium Chloride 0.9% 1,000 ML IV SCH (02:10)
--- NOTE | 2017-04-10 06:40 | CP.PCM.PN ---
Subjective - Date & Time of Evaluation Date of Evaluation: 04/09/17 Time of Evaluation: 14:45 - Subjective Subjective: Patient is more responsive today on 100% non-rebreathing mask at the time of examination responsive to verbal commands Objective - Vital Signs/Intake and Output Vital Signs (last 24 hours): Temp Pulse Resp BP Pulse Ox 98.4 F 100 H 21 137/84 98 04/09/17 20:30 04/09/17 20:30 04/09/17 20:30 04/09/17 20:30 04/09/17 20:30 Intake and Output: 04/09/17 04/10/17 18:59 06:59 Intake Total 0 Balance 0 - Medications Medications: Current Medications Albuterol/Ipratropium (Duoneb 3 Mg/0.5 Mg (3 Ml) Ud) 3 ml IH [id number] PRN PRN Reason: Cough and congestion Last Admin: 04/09/17 11:17 Dose: 3 ml Aspirin (Ecotrin) 81 mg PO DAILY OMAR Last Admin: 04/09/17 09:22 Dose: Not Given Meropenem 1g/NS 100mL IVPB (Meropenem 1g/Ns 100ml Ivpb) 1 gm in 100 mls @ 100 mls/hr IVPB Q12 OMAR PRN Reason: Protocol Stop: 04/15/17 22:01 Last Admin: 04/09/17 21:44 Dose: 100 mls/hr Sodium Chloride (Sodium Chloride 0.9%) 1,000 mls @ 60 mls/hr IV .[id number] OMAR Last Admin: 04/08/17 21:18 Dose: 60 mls/hr Nystatin/Triamcinolone Acetonide (Nystatin/Triamcinolone Cream) 0 ea TOP BID OMAR Last Admin: 04/09/17 17:02 Dose: 1 applic Quetiapine Fumarate (Seroquel) 12.5 mg PO HS OMAR PRN Reason: Protocol Last Admin: 04/09/17 21:41 Dose: Not Given - Labs Labs: 04/09/17 16:00 04/09/17 16:00 PT 11.3 Seconds (9.9-11.8) 04/06/17 14:16 INR 1.05 (0.93-1.08) 04/06/17 14:16 APTT 30.4 Seconds (23.7-30.8) 04/06/17 14:16 - Head Exam Head Exam: ATRAUMATIC, NORMOCEPHALIC - Eye Exam Eye Exam: EOMI, PERRL - ENT Exam ENT Exam: Mucous Membranes Moist - Neck Exam Neck Exam: absent: Full ROM, Lymphadenopathy - Respiratory Exam Respiratory Exam: Accessory Muscle Use. absent: Rales, Wheezes Additional comments: On 100% on rebreathing mask surgically reduced air entry at the base few scattered basilar rales - GI/Abdominal Exam GI & Abdominal Exam: Soft, Normal Bowel Sounds. absent: Tenderness - Neurological Exam Neurological Exam: Alert, Awake Assessment and Plan - Assessment and Plan (Free Text) Assessment: This 81-year-old patient was more lethargic and unresponsive to verbal commands yesterday now more alert on 100% on rebreathing mask. Partially responsive to verbal commands. Patient on physical exam has no abdominal tenderness however because real concern is increasing white cell count. The CT done at this time of admission was reviewed. Has significant thickening in the left side of the colon. Stool for C. difficile has been negative patient is been on meropenem Patient is been evaluated by neurology We will discuss with PCP and family regarding flexible sigmoidoscopic examination if the white cell count continues to show up for trend And if his mental status and respiratory status improves His other comorbidities include dementia diabetes mellitus hypertension status post a acute mesenteric ischemia status post angioplasty History reasonable to consider empiric therapy with by mouth vancomycin even though the C. difficile has been negative. Patient also has had bilateral pleural effusion Presently on 100% non-rebreathing mask at the time of examination His other comorbidities include diabetes mellitus dementia status post angioplasty for mesenteric ischemia If his mental status and respiratory status improves and the WBC continues to have upperward trend , it may be reasonable to consider repeat CT and also flexible Sigmoidoscopic examination Prognosis appears guarded Plan: Dehydration Diarrhea, rule out C. difficile, status post CT scan showing rectosigmoiditis History of CVA Dementia Hypertension Diabetes mellitus H/O acute mesenteric ischemia status post angio Plan: Follow up stool for C. difficile and culture Started on oral vancomycin On IV antibiotics meropenem as per ID On aspirin Continue GI prophylaxis Continue DVT prophylaxis Monitor electrolytes Continue dysphagia diet as tolerated Thank you for this consult and for allowing us to participate in your patient's care will make further recommendations based upon clinical course. Seen and discussed with Dr. Monterroso.
[2017-04-10 07:54] LABS: HEMOGLOBIN 9.7 gm/dL (14.0-18.0); MEAN CELL VOLUME 86.4 fL (80.0-105.0); MEAN CORPUSCULAR HEMOGLOBIN 29.2 pg (25.0-35.0); MEAN CORPUSCULAR HGB CONC 33.8 g/dl (31.0-37.0); MEAN PLATELET VOLUME 9.1 fl (7.0-11.0); RBC 3.32 10^6/uL (3.5-6.1); RED CELL DISTRIBUTION WIDTH 15.3 % (11.5-14.5); WHITE BLOOD COUNT 9.7 10^3/ul (4.5-11.0)
[2017-04-10 08:09] LABS: ALB/GLOB RATIO 0.7 (1.1-1.8); ALT/SGPT 17 U/L (7-56); AST/SGOT 23 U/L (15-59); BLOOD UREA NITROGEN 13 mg/dL (7-21); CALCIUM 7.3 mg/dL (8.4-10.5); GFR AFRICAN-AMERICAN > 60; GFR NON-AFRICAN AMERICAN > 60
[2017-04-10] MEDS: Meropenem 1g/NS 100mL IVPB 1 GM/100 ML PIGGYBACK IVPB SCH ×2 (09:47→21:10)
--- NOTE | 2017-04-10 10:32 | CP.PCM.PN ---
<Norma Macdonald - Last Filed: 04/10/17 12:45> Subjective - Date & Time of Evaluation Date of Evaluation: 04/10/17 Time of Evaluation: 10:25 - Subjective Subjective: PGY-2 resident neurology progress note for Dr Casey. Patient is more awake and alert today. Patient is requesting cookie. Patient with sob, however no other complains. Objective - Vital Signs/Intake and Output Vital Signs (last 24 hours): Temp Pulse Resp BP Pulse Ox 98.7 F 84 20 134/84 97 04/10/17 08:33 04/10/17 08:33 04/10/17 08:33 04/10/17 09:50 04/10/17 08:33 Intake and Output: 04/10/17 04/10/17 06:59 18:59 Intake Total 1520 Balance 1520 - Medications Medications: Current Medications Albuterol/Ipratropium (Duoneb 3 Mg/0.5 Mg (3 Ml) Ud) 3 ml IH [id number] PRN PRN Reason: Cough and congestion Last Admin: 04/09/17 11:17 Dose: 3 ml Aspirin (Ecotrin) 81 mg PO DAILY OMAR Last Admin: 04/10/17 09:47 Dose: 81 mg Meropenem 1g/NS 100mL IVPB (Meropenem 1g/Ns 100ml Ivpb) 1 gm in 100 mls @ 100 mls/hr IVPB Q12 OMAR PRN Reason: Protocol Stop: 04/15/17 22:01 Last Admin: 04/10/17 09:47 Dose: 100 mls/hr Nystatin/Triamcinolone Acetonide (Nystatin/Triamcinolone Cream) 0 ea TOP BID OMAR Last Admin: 04/09/17 17:02 Dose: 1 applic Quetiapine Fumarate (Seroquel) 12.5 mg PO HS OMAR PRN Reason: Protocol Last Admin: 04/09/17 21:41 Dose: Not Given - Labs Labs: 04/10/17 07:30 04/10/17 07:30 PT 11.3 Seconds (9.9-11.8) 04/06/17 14:16 INR 1.05 (0.93-1.08) 04/06/17 14:16 APTT 30.4 Seconds (23.7-30.8) 04/06/17 14:16 - Constitutional Appears: No Acute Distress, Chronically Ill - Head Exam Head Exam: ATRAUMATIC, NORMAL INSPECTION, NORMOCEPHALIC - Eye Exam Eye Exam: EOMI, Normal appearance, PERRL. absent: Scleral icterus Pupil Exam: NORMAL ACCOMODATION, PERRL - ENT Exam ENT Exam: Mucous Membranes Moist - Neck Exam Neck Exam: Normal Inspection - Respiratory Exam Respiratory Exam: Wheezes. absent: Rales, Rhonchi, Respiratory Distress, Stridor - Cardiovascular Exam Cardiovascular Exam: REGULAR RHYTHM, +S1, +S2 - GI/Abdominal Exam GI & Abdominal Exam: Soft, Normal Bowel Sounds. absent: Tenderness - Extremities Exam Extremities Exam: Pedal Edema - Neurological Exam Neurological Exam: Alert, Awake, Oriented x3 Additional comments: More awake today, and following commands. Eyes were open spontaneously. Pupils reactive to light. Reflexes 2+ throughout in the Achilles tender and patella tendons b/l No nuchal rigidity. Negative babinski No clonus. Patient is moving all her extremities. - Psychiatric Exam Psychiatric exam: Normal Affect, Normal Mood - Skin Skin Exam: Dry, Warm Assessment and Plan - Assessment and Plan (Free Text) Assessment: 81 y/o with pmh of CVA ( 2015), htn, DM2, macular degeneration, depression, urinary incontinent, recently discharged s/p SMA and RAINA angioplasty sent by [facility] 2nd to loose stool and dehydration, neurology consulted 2nd to worsening in mental status. CT head w/o contrast 04/09: No intracranial mass, hemorrhage or evidence of acute infarct. Old right cerebellar hemispheric infarct. Old left basal ganglia lacune. Chronic microvascular white matter ischemic change. Age-appropriate atrophy. Trace bilateral mastoid effusion and fluid in right antrum. Impression: Transient delirium likely 2nd to toxic metabolic encephalopathy superimposed with baseline cognitive impairment probably worsened by his current status. Patient's mental status improved. Plan: - Continue current medical management - Maintain adequate hydration - PT/OT eval for deconditioned state. - Patient is stable neurologically. - Thank you for consulting Dr Casey. - Please reconsult again as needed. Patient seen, examined, and discussed with Dr Casey. <Watson Casey - Last Filed: 04/10/17 13:21> Objective - Vital Signs/Intake and Output Vital Signs (last 24 hours): Temp Pulse Resp BP Pulse Ox 98.7 F 84 20 134/84 97 04/10/17 08:33 04/10/17 08:33 04/10/17 08:33 04/10/17 09:50 04/10/17 08:33 Intake and Output: 04/10/17 04/10/17 06:59 18:59 Intake Total 1520 Balance 1520 - Medications Medications: Current Medications Albuterol/Ipratropium (Duoneb 3 Mg/0.5 Mg (3 Ml) Ud) 3 ml IH [id number] PRN PRN Reason: Cough and congestion Last Admin: 04/09/17 11:17 Dose: 3 ml Aspirin (Ecotrin) 81 mg PO DAILY OMAR Last Admin: 04/10/17 09:47 Dose: 81 mg Meropenem 1g/NS 100mL IVPB (Meropenem 1g/Ns 100ml Ivpb) 1 gm in 100 mls @ 100 mls/hr IVPB Q12 OMAR PRN Reason: Protocol Stop: 04/15/17 22:01 Last Admin: 04/10/17 09:47 Dose: 100 mls/hr Nystatin/Triamcinolone Acetonide (Nystatin/Triamcinolone Cream) 0 ea TOP BID O[facility] Last Admin: 04/09/17 17:02 Dose: 1 applic Quetiapine Fumarate (Seroquel) 12.5 mg PO HS OMAR PRN Reason: Protocol Last Admin: 04/09/17 21:41 Dose: Not Given - Labs Labs: 04/10/17 07:30 04/10/17 07:30 PT 11.3 Seconds (9.9-11.8) 04/06/17 14:16 INR 1.05 (0.93-1.08) 04/06/17 14:16 APTT 30.4 Seconds (23.7-30.8) 04/06/17 14:16 Attending/Attestation - Attestation I have personally seen and examined this patient.: Yes I have fully participated in the care of the patient.: Yes I have reviewed all pertinent clinical information, including history, physical exam and plan: Yes
[2017-04-10] MEDS: Nystatin-Triamcinolone Cream(30 gm) TOP SCH ×2 (11:00→17:44)
--- NOTE | 2017-04-10 11:03 | CP.PCM.PN ---
<Sofie Richardson - Last Filed: 04/10/17 11:02> Subjective - Date & Time of Evaluation Date of Evaluation: 04/10/17 Time of Evaluation: 09:25 - Subjective Subjective: S&E at bedside, patient is alert, awake and verbal, he states that he is hungry , no acute overnight events. No acute distress. Patient had AMS yesterday, ct scan head old cerebral hemisphere infarct. No reports of overt GI Bleed. Had loose brown BM last night. Objective - Vital Signs/Intake and Output Vital Signs (last 24 hours): Temp Pulse Resp BP Pulse Ox 98.7 F 84 20 134/84 97 04/10/17 08:33 04/10/17 08:33 04/10/17 08:33 04/10/17 09:50 04/10/17 08:33 Intake and Output: 04/10/17 04/10/17 06:59 18:59 Intake Total 1520 Balance 1520 - Medications Medications: Current Medications Albuterol/Ipratropium (Duoneb 3 Mg/0.5 Mg (3 Ml) Ud) 3 ml IH [id number] PRN PRN Reason: Cough and congestion Last Admin: 04/09/17 11:17 Dose: 3 ml Aspirin (Ecotrin) 81 mg PO DAILY OMAR Last Admin: 04/10/17 09:47 Dose: 81 mg Meropenem 1g/NS 100mL IVPB (Meropenem 1g/Ns 100ml Ivpb) 1 gm in 100 mls @ 100 mls/hr IVPB Q12 OMAR PRN Reason: Protocol Stop: 04/15/17 22:01 Last Admin: 04/10/17 09:47 Dose: 100 mls/hr Nystatin/Triamcinolone Acetonide (Nystatin/Triamcinolone Cream) 0 ea TOP BID OMAR Last Admin: 04/09/17 17:02 Dose: 1 applic Quetiapine Fumarate (Seroquel) 12.5 mg PO HS OMAR PRN Reason: Protocol Last Admin: 04/09/17 21:41 Dose: Not Given - Labs Labs: 04/10/17 07:30 04/10/17 07:30 PT 11.3 Seconds (9.9-11.8) 04/06/17 14:16 INR 1.05 (0.93-1.08) 04/06/17 14:16 APTT 30.4 Seconds (23.7-30.8) 04/06/17 14:16 - Constitutional Appears: No Acute Distress, Confused - Eye Exam Eye Exam: Normal appearance. absent: Scleral icterus - ENT Exam ENT Exam: Mucous Membranes Moist - Neck Exam Neck Exam: Normal Inspection - Respiratory Exam Respiratory Exam: Rhonchi, NORMAL BREATHING PATTERN. absent: Respiratory Distress - Cardiovascular Exam Cardiovascular Exam: +S1, +S2 - GI/Abdominal Exam GI & Abdominal Exam: Soft, Normal Bowel Sounds. absent: Guarding, Tenderness, Rebound - Extremities Exam Extremities Exam: Normal Capillary Refill. absent: Calf Tenderness, Pedal Edema - Neurological Exam Neurological Exam: Alert, Altered (confused at times), Awake - Skin Skin Exam: Dry, Warm Assessment and Plan - Assessment and Plan (Free Text) Assessment: Assessment: Dehydration Diarrhea, CDiff, negative, status post CT scan showing rectosigmoiditis History of CVA Dementia Anemia Hypertension Diabetes mellitus H/O acute mesenteric ischemia status post angio Plan: On IV antibiotics meropenem as per ID On aspirin SCD boots Monitor electrolytes monitor H/H restart dysphasia diet aspiration precaution as per neuro, ID Seen and discussed with Dr. Monterroso. <Ivanna Monterroso V - Last Filed: 04/10/17 23:56> Objective - Vital Signs/Intake and Output Vital Signs (last 24 hours): Temp Pulse Resp BP Pulse Ox 102 F H 97 H 19 140/82 98 04/10/17 17:01 04/10/17 16:00 04/10/17 16:00 04/10/17 16:59 04/10/17 16:00 Intake and Output: 04/10/17 04/11/17 18:59 06:59 Intake Total 120 0 Balance 120 0 - Medications Medications: Current Medications Acetaminophen (Tylenol 650 Mg Supp) 650 mg RC Q6H PRN PRN Reason: Fever >100.4 F Last Admin: 04/10/17 17:01 Dose: 650 mg Albuterol/Ipratropium (Duoneb 3 Mg/0.5 Mg (3 Ml) Ud) 3 ml IH [id number] [facility] Last Admin: 04/10/17 19:58 Dose: 3 ml Aspirin (Ecotrin) 81 mg PO DAILY [facility] Last Admin: 04/10/17 09:47 Dose: 81 mg Meropenem 1g/NS 100mL IVPB (Meropenem 1g/Ns 100ml Ivpb) 1 gm in 100 mls @ 100 mls/hr IVPB Q12 OMAR PRN Reason: Protocol Stop: 04/15/17 22:01 Last Admin: 04/10/17 21:10 Dose: 100 mls/hr Nystatin/Triamcinolone Acetonide (Nystatin/Triamcinolone Cream) 0 ea TOP BID OMAR Last Admin: 04/10/17 17:44 Dose: 1 applic Quetiapine Fumarate (Seroquel) 12.5 mg PO HS OMAR PRN Reason: Protocol Last Admin: 04/10/17 21:11 Dose: 12.5 mg - Labs Labs: 04/10/17 07:30 04/10/17 07:30 PT 11.3 Seconds (9.9-11.8) 04/06/17 14:16 INR 1.05 (0.93-1.08) 04/06/17 14:16 APTT 30.4 Seconds (23.7-30.8) 04/06/17 14:16 Attending/Attestation - Attestation I have personally seen and examined this patient.: Yes I have fully participated in the care of the patient.: Yes I have reviewed all pertinent clinical information, including history, physical exam and plan: Yes Notes (Text): th
--- NOTE | 2017-04-10 14:35 | PN ---
DATE: 04/10/2017 SUBJECTIVE: The patient has no complaints of chest pain, or shortness of breath. No headaches, or dizziness. PHYSICAL EXAMINATION VITAL SIGNS: Temperature is 98.7, pulse is 84, blood pressure 134/84, and respirations 20. HEENT: Anicteric sclerae. Moist mucosa. No oral lesions. NECK: No JVD, adenopathy, thyromegaly, or bruits. CARDIOVASCULAR: S1 and S2 regular. No murmurs, rubs, or gallops. LUNGS: Good bilateral air entry. No wheezes, rales, or rhonchi. ABDOMEN: Bowel sounds are positive; soft, nontender, and nondistended. No hepatosplenomegaly. EXTREMITIES: Lower extremity, no edema. Full range of motion LABORATORY DATA: CT scan of the head shows an old left basal ganglia lacunar infarct, no right cerebellar hemispheric infarct. IMPRESSION: 1. Sepsis. 2. History of mesenteric ischemia, status post superior mesenteric artery angioplasty. 3. Dementia, Alzheimer's type. PLAN: The patient is currently on aspirin, she is going to continue. He is on meropenem for antibiotics. The patient is on Seroquel. He is on IV fluids with normal saline. He is currently NPO. I will put him on liquid diet if he tolerates. Jakob Newman MD
--- NOTE | 2017-04-10 15:07 | CP.PCM.PN ---
Subjective - Date & Time of Evaluation Date of Evaluation: 04/10/17 Time of Evaluation: 11:30 - Subjective Subjective: Comfortable, no abdominal pain currently. No fevers overnight, still had 2 LBM' s yesterday but none today. Objective - Vital Signs/Intake and Output Vital Signs (last 24 hours): Temp Pulse Resp BP Pulse Ox 98.7 F 84 20 134/84 97 04/10/17 08:33 04/10/17 08:33 04/10/17 08:33 04/10/17 08:33 04/10/17 08:33 Intake and Output: 04/10/17 04/10/17 06:59 18:59 Intake Total 1520 Balance 1520 - Medications Medications: Current Medications Albuterol/Ipratropium (Duoneb 3 Mg/0.5 Mg (3 Ml) Ud) 3 ml IH [id number] PRN PRN Reason: Cough and congestion Last Admin: 04/09/17 11:17 Dose: 3 ml Aspirin (Ecotrin) 81 mg PO DAILY [facility] Last Admin: 04/09/17 09:22 Dose: Not Given Meropenem 1g/NS 100mL IVPB (Meropenem 1g/Ns 100ml Ivpb) 1 gm in 100 mls @ 100 mls/hr IVPB Q12 OMAR PRN Reason: Protocol Stop: 04/15/17 22:01 Last Admin: 04/09/17 21:44 Dose: 100 mls/hr Nystatin/Triamcinolone Acetonide (Nystatin/Triamcinolone Cream) 0 ea TOP BID [facility] Last Admin: 04/09/17 17:02 Dose: 1 applic Quetiapine Fumarate (Seroquel) 12.5 mg PO HS [facility] PRN Reason: Protocol Last Admin: 04/09/17 21:41 Dose: Not Given - Labs Labs: 04/10/17 07:30 04/10/17 07:30 PT 11.3 Seconds (9.9-11.8) 04/06/17 14:16 INR 1.05 (0.93-1.08) 04/06/17 14:16 APTT 30.4 Seconds (23.7-30.8) 04/06/17 14:16 - Constitutional Appears: Non-toxic, No Acute Distress - Head Exam Head Exam: NORMAL INSPECTION - ENT Exam ENT Exam: Mucous Membranes Moist - Neck Exam Neck Exam: absent: Meningismus - Respiratory Exam Respiratory Exam: Decreased Breath Sounds - Cardiovascular Exam Cardiovascular Exam: +S1, +S2 - GI/Abdominal Exam GI & Abdominal Exam: Soft. absent: Tenderness Assessment and Plan - Assessment and Plan (Free Text) Plan: Assessment Diarrhea with associated rectosigmoid colitis - no evidence of C. diff. colitis history of acute mesenteric ischemia associated with the superior and inferior mesenteric arteries now S/P angioplasty S/P Strep mitis bacteremia with 2D echo negative for vegetations CVA chronic renal failure HTN macular degeneration DM history of urinary retention Plan continue Merrem day 4 - follow up stool studies (stool cx and fecal leukocytes) ; follow up further GI plans will continue to monitor clinically
[2017-04-10] MEDS: Albuterol-Ipratrop 3 mg / 0.5 (3 ml) UD IH SCH (19:58)
[2017-04-11] MEDS: Albuterol-Ipratrop 3 mg / 0.5 (3 ml) UD IH SCH ×7 (00:19→23:46)
--- NOTE | 2017-04-11 09:14 | CP.PCM.PCO ---
Physician Communication Note - Physician Communication Note Physician Communication Note: he was hypoglycemic yesterday. monitor electrolytes. c/w present mx.
[2017-04-11] MEDS: Meropenem 1g/NS 100mL IVPB 1 GM/100 ML PIGGYBACK IVPB SCH (09:52)
[2017-04-11] MEDS: Nystatin-Triamcinolone Cream(30 gm) TOP SCH ×2 (09:53→17:37)
--- NOTE | 2017-04-11 10:32 | CP.PCM.PN ---
<Sofie Richardson - Last Filed: 04/11/17 10:29> Subjective - Date & Time of Evaluation Date of Evaluation: 04/11/17 Time of Evaluation: 09:15 - Subjective Subjective: S&E at bedside this am, chart reviewed. Had fever last night, he is lethargic this morning, arousable but no verbal. NPO , was congested. No acute distress. No report diarrhea or bleeding. Hypoglycemic this am. Objective - Vital Signs/Intake and Output Vital Signs (last 24 hours): Temp Pulse Resp BP Pulse Ox 99 F 100 H 22 140/70 98 04/11/17 08:17 04/11/17 08:17 04/11/17 08:17 04/11/17 08:17 04/11/17 08:17 Intake and Output: 04/11/17 04/11/17 06:59 18:59 Intake Total 0 Balance 0 - Medications Medications: Current Medications Acetaminophen (Tylenol 650 Mg Supp) 650 mg RC Q6H PRN PRN Reason: Fever >100.4 F Last Admin: 04/11/17 05:58 Dose: 650 mg Albuterol/Ipratropium (Duoneb 3 Mg/0.5 Mg (3 Ml) Ud) 3 ml IH [id number] O[facility] Last Admin: 04/11/17 08:02 Dose: 3 ml Aspirin (Ecotrin) 81 mg PO DAILY O[facility] Last Admin: 04/11/17 09:52 Dose: 81 mg Meropenem 1g/NS 100mL IVPB (Meropenem 1g/Ns 100ml Ivpb) 1 gm in 100 mls @ 100 mls/hr IVPB Q12 OMAR PRN Reason: Protocol Stop: 04/15/17 22:01 Last Admin: 04/11/17 09:52 Dose: 100 mls/hr Nystatin/Triamcinolone Acetonide (Nystatin/Triamcinolone Cream) 0 ea TOP BID OMAR Last Admin: 04/11/17 09:53 Dose: 1 applic Quetiapine Fumarate (Seroquel) 12.5 mg PO HS OMAR PRN Reason: Protocol Last Admin: 04/10/17 21:11 Dose: 12.5 mg - Labs Labs: 04/10/17 07:30 04/10/17 07:30 PT 11.3 Seconds (9.9-11.8) 04/06/17 14:16 INR 1.05 (0.93-1.08) 04/06/17 14:16 APTT 30.4 Seconds (23.7-30.8) 04/06/17 14:16 - Constitutional Appears: No Acute Distress - Head Exam Head Exam: NORMOCEPHALIC - Eye Exam Eye Exam: Normal appearance. absent: Scleral icterus - ENT Exam ENT Exam: Mucous Membranes Moist - Neck Exam Neck Exam: Normal Inspection - Respiratory Exam Respiratory Exam: Rales, Rhonchi, NORMAL BREATHING PATTERN. absent: Respiratory Distress - Cardiovascular Exam Cardiovascular Exam: +S1, +S2 - GI/Abdominal Exam GI & Abdominal Exam: Soft, Normal Bowel Sounds. absent: Guarding, Tenderness, Rebound - Extremities Exam Extremities Exam: Normal Capillary Refill. absent: Pedal Edema - Neurological Exam Neurological Exam: Altered Assessment and Plan - Assessment and Plan (Free Text) Assessment: Assessment: Fever Dehydration Diarrhea, CDiff, negative, status post CT scan showing rectosigmoiditis History of CVA Dementia Anemia Hypertension Diabetes mellitus H/O acute mesenteric ischemia status post angio Plan: On IV antibiotics meropenem as per ID On aspirin SCD boots Monitor electrolytes monitor H/H NPO, IVF pending swallow evaluation FU blood culture aspiration precaution as per neuro, ID Seen and discussed with Dr. Monterroso. <Ivanna Monterroso V - Last Filed: 04/11/17 23:48> Objective - Vital Signs/Intake and Output Vital Signs (last 24 hours): Temp Pulse Resp BP Pulse Ox 99.5 F 105 H 22 133/98 H 96 04/11/17 16:00 04/11/17 16:00 04/11/17 16:00 04/11/17 16:00 04/11/17 16:00 Intake and Output: 04/11/17 04/12/17 18:59 06:59 Intake Total 0 Balance 0 - Medications Medications: Current Medications Acetaminophen (Tylenol 650 Mg Supp) 650 mg RC Q6H PRN PRN Reason: Fever >100.4 F Last Admin: 04/11/17 05:58 Dose: 650 mg Albuterol/Ipratropium (Duoneb 3 Mg/0.5 Mg (3 Ml) Ud) 3 ml IH [id number] O[facility] Last Admin: 04/11/17 19:33 Dose: 3 ml Aspirin (Ecotrin) 81 mg PO DAILY [facility] Last Admin: 04/11/17 09:52 Dose: 81 mg Nystatin/Triamcinolone Acetonide (Nystatin/Triamcinolone Cream) 0 ea TOP BID [facility] Last Admin: 04/11/17 17:37 Dose: 1 applic Quetiapine Fumarate (Seroquel) 12.5 mg PO HS OMAR PRN Reason: Protocol Last Admin: 04/11/17 21:29 Dose: Not Given - Labs Labs: 04/10/17 07:30 04/10/17 07:30 PT 11.3 Seconds (9.9-11.8) 04/06/17 14:16 INR 1.05 (0.93-1.08) 04/06/17 14:16 APTT 30.4 Seconds (23.7-30.8) 04/06/17 14:16 Attending/Attestation - Attestation I have personally seen and examined this patient.: Yes I have fully participated in the care of the patient.: Yes I have reviewed all pertinent clinical information, including history, physical exam and plan: Yes Notes (Text): th t
--- NOTE | 2017-04-11 13:27 | CON ---
PULMONARY CONSULTATION DATE: 04/11/2017 REASON FOR CONSULTATION: Shortness of breath. REFERRING PHYSICIAN: Dr. Jakob Newman. HISTORY OF PRESENT ILLNESS: History is obtained via extensive discussion with the night nurse. I have also reviewed the chart at length. The patient does not appear to be an adequate historian at the present time. PAST MEDICAL HISTORY: The patient is a chronically ill 81-year-old male, with past medical history significant for cerebrovascular accident, hypertension, diabetes mellitus, dementia, chronic renal insufficiency, and ischemic colitis, who was admitted to [facility] - originally on 04/06/2017 - with loose stools and dehydration. The patient did have an abdominal CAT scan done in the emergency room. The CAT scan was consistent with acute colitis. The patient was thus admitted for additional evaluation. Again, I discussed the case with the night nurse at length. The night nurse does note that the patient has been mildly short of breath - but in no acute distress. There is no history of significant cough or sputum production. There is no history of chest pain, coughing up of blood, or chest pain - made worse with deep respirations. There have been temperatures noted during his hospital stay. No history of chills or infectious exposure. No history of night sweats, weight loss, or appetite change prior to the above events. No history of leg or calf pains. No history of syncope or diaphoresis. No history of recent travel or trauma. REVIEW OF SYSTEMS: No acute urinary problems. No new musculoskeletal complaints. Rest of review of systems is noncontributory. ALLERGIES: NO KNOWN ALLERGIES. SOCIAL HISTORY: Positive for tobacco. Negative for alcohol. FAMILY HISTORY: No inheritable diseases. HOME MEDICATIONS: Include Seroquel and Ecotrin. PHYSICAL EXAMINATION: GENERAL: The patient is mildly short of breath, but certainly in no acute distress. He is lethargic, but arousable. VITAL SIGNS: Temperature is 100.0, pulse is 88, respirations are 20/22, and blood pressure is 140/82. Oxygen saturation on a nonrebreather mask is 98%. HEENT: Normocephalic and atraumatic. NECK: No JVD. CARDIOVASCULAR: Positive S1 and S2. No S3 or gallop. LUNGS: Decreased breath sounds at the bases. Minimal bilateral rhonchi. No wheezing. EXTREMITIES: Mild edema. No cyanosis. No clubbing. Calves are nontender to palpation. GASTROINTESTINAL: Abdomen is soft, nontender, and nondistended. Bowels sounds are positive. SKIN: No acute rash. NEUROLOGIC: Limited at the present time. CURRENT LABORATORY DATA: CAT scan of the abdomen and pelvis was done on 04/06/2017. Findings are consistent with acute colitis. There are also small bilateral pleural effusions with adjacent atelectasis at the bases. CBC: White count 9.7, hemoglobin 9.7, hematocrit 28.7, and platelets of 354. Complete metabolic profile: Carbon dioxide 19, glucose 56, calcium 7.3, protein 4.9, and albumin 2.0. Rest of the metabolic profile is within normal limits. IMPRESSION: 1. Acute colitis. 2. Mild bronchospasm. 3. Small bilateral pleural effusions. 4. Sepsis syndrome. 5. Encephalopathy. PLAN: Again, I did discuss the case with the night nurse at length. I have also reviewed the chart at length. The patient was originally admitted - on 04/06/2017 - with acute colitis. As above, the CAT scan also revealed small bilateral pleural effusions. The patient has been given several doses of Lasix intravenously. On physical exam, there is mild bronchospasm noted. I will continue with the current nebulizer treatments for now. I will also continue with the aspiration precautions - given his above mental status. On nasal cannula yesterday, the oxygen saturation was 93%. I will try to transition the patient back to nasal cannula this morning. Oxygen saturation will be closely monitored. I would continue the gastrointestinal evaluation and workup. Inputs are noted. I would also continue with the antibiotic coverage - as per infectious disease. The leukocytosis has now completely resolved. Neurologic evaluation has also been ordered. Clinically, the patient is guarded at this point in time. Addition pulmonary intervention will be based on the clinical status of the patient. I will discuss the above with Dr. Newman this morning. Thank you very much for this pulmonary consultation. Tyler Willis MD [facility]PITALMaryana
--- NOTE | 2017-04-11 15:31 | DS ---
DATE: 04/11/2017 HISTORY OF PRESENT ILLNESS: This is a 81-year-old male who had come into the hospital with the patient had blood cultures that is negative, C. diff is negative. He had an elevated white count initially and coming into the hospital that has normalized after getting IV antibiotics, the patient is on meropenem, he is on Seroquel for his agitation. The patient was given Lasix yesterday, he has been followed by GI for his mesenteric ischemia. He does not have any abdominal pain. PHYSICAL EXAMINATION: VITAL SIGNS: Temperature is 102, pulse is 140/82, respiration is 22, O2 saturation is 98%. NECK: No JVD, adenopathy, thyromegaly, or bruits. CARDIOVASCULAR: S1 and S2 is irregular . No murmurs or rubs. ABDOMEN: Bowel sound are positive, soft, nontender and nondistended. LUNGS: Clear to auscultation bilaterally. No wheezes, rales. Few rhonchi bilaterally. EXTREMITIES: Low lower extremity 1+ pulses. ASSESSMENT: 1. Fever. 2. Dementia of Alzheimer's type. 3. Hypertension. 4. Macular degeneration. 5. History of mesenteric ischemia status post superior mesenteric artery angioplasty. PLANT: The patient has a fever. The patient is on meropenem for antibiotics. The patient is going to be on Seroquel and Tylenol as needed, is being followed by ID and GI. We will continue to follow the patient closely, although prognosis overall guarded, he is in failing over the last few months. The patient's does not having difficulty in taking care of the patient. We had discussion about end of life care, she does not wish to makes the patient DNR. She does not wish for the patient to go prison care facility, the patient will continue to decline most likely. Jakob Newman MD
[2017-04-11 18:27] VITALS: O2SAT 96
--- NOTE | 2017-04-11 19:23 | PN ---
DATE: 04/11/2017 SUBJECTIVE: The patient is in bed. Overall, unchanged. Overall, very weak and low grade fevers. PHYSICAL EXAMINATION VITAL SIGNS: Temperature is 101, T-max yesterday was 102, blood pressure is 140/70, respiratory rate of 22, heart rate of 100. HEENT: Unremarkable. NECK: Supple. LUNGS: Decreased breath sounds. HEART: Normal S1 and S2. ABDOMEN: Soft, nontender. LABORATORY DATA: He has a white count of 9.7, and hemoglobin of 9. Chemistries reveals a BUN of 13, creatinine of 0.9, Blood cultures are negative and urine in the office was noted. Stools for C. diff antigen, and toxin is negative. Stool cultures, no salmonella, Campylobacter is isolated, review of the orders reveals the patient to be on meropenem. ASSESSMENT AND PLAN: This is a 81-year-old male with diarrhea associated with rectosigmoid colitis, not Clostridium difficile, antigen is negative, history of acute mesenteric ischemia and superior and inferior mesenteric artery, status post angioplasty with cerebrovascular accident, chronic renal failure, hypertension, macular degeneration, and history of urinary retention. Day #5 of meropenem with a negative stool cultures and white count now of 9.7. We will discontinue meropenem and follow the patient to the etiology of the yesterday's temperature of 102 unclear, must rule out beta-lactam. We will follow closely with you. Moe Zamora MD
[2017-04-12] MEDS: Albuterol-Ipratrop 3 mg / 0.5 (3 ml) UD IH SCH ×2 (07:54→11:22)
[2017-04-12 08:36] VITALS: BP 131/74; PULSE 96; RESP 21; TEMP 99
--- NOTE | 2017-04-12 08:42 | PN ---
DATE: 04/12/2017 PULMONARY NOTE SUBJECTIVE: The patient appears comfortable this morning. He is not short of breath at rest. He remains lethargic, but easily arousable. PHYSICAL EXAMINATION: VITAL SIGNS: Temperature is 99.5, pulse is approximately 100, respiratory rate 20, blood pressure 133/98. Oxygen saturation on nasal cannula is 96%. HEENT: Normocephalic, atraumatic. NECK: No JVD. CARDIOVASCULAR: Positive S1 and S2. No S3 or gallop. LUNGS: Decreased breath sounds at the bases. Less rhonchi. No wheezing. EXTREMITIES: Mild edema. No cyanosis. No clubbing. Calves are nontender to palpation. GASTROINTESTINAL: Abdomen is soft, nontender, and nondistended. Bowels sounds are positive. SKIN: No acute rash. NEUROLOGIC: Limited at the present time. IMPRESSION: 1. Acute colitis. 2. Mild bronchospasm. 3. Small bilateral pleural effusions. 4. Sepsis syndrome. 5. Encephalopathy. PLAN: The patient appears more comfortable this morning. He is not short of breath at rest. Oxygen saturation on nasal cannula is now 96%. As above, the patient remains lethargic, but is easily arousable. I will continue with aspiration precautions for now. On physical exam, his bronchospasm is less. I will continue with the current nebulizer treatments for now. Inputs by GI and Infectious Disease are noted. Clinical status of the patient has somewhat improved. However, the overall status/prognosis for this patient does remain very guarded. All are aware. I will discuss the above with the attending physician. Tyler Willis MD [facility]
[2017-04-12] MEDS: Nystatin-Triamcinolone Cream(30 gm) TOP SCH (10:09)
--- NOTE | 2017-04-12 11:12 | PN ---
DATE: SUBJECTIVE: The patient has no complaints of any chest pain or shortness of breath. PHYSICAL EXAMINATION: VITAL SIGNS: Temperature is 99, pulse of 96, blood pressure of 131/74, and respirations 21. HEENT: Anicteric sclerae. Moist mucosa. NECK: No JVD, adenopathy, thyromegaly. CARDIOVASCULAR: S1 and S2, regular, no murmurs, rubs or gallop. ABDOMEN: Bowel sounds positive. Soft, nontender and nondistended. EXTREMITIES: Lower extremity, no cyanosis, clubbing or edema. ASSESSMENT: 1. Fever. 2. Dementia of Alzheimer's type. 3. Hypertension. 4. Macular degeneration. 5. History of mesenteric ischemia status post superior mesenteric artery angioplasty. 6. The patient has been on five days of antibiotics with negative cultures. She had fevers. She has been afebrile at this point. 7. The patient is currently not on antibiotics. The patient is on pureed diet. He will be discharged to subacute rehab. The patient's does not wish for him to go to long term care administrator care although she is having difficulty managing at home. talked to her multiple times about having a plan placed for long term care administrator care whether its home or a facility, but she has not come out with a plan. I have concerns that the patient will continue due to get readmitted at the hospital. Condition is stable. Activities to increase as tolerated. Jakob Newman MD
--- NOTE | 2017-04-12 12:29 | CP.PCM.PN ---
Subjective - Date & Time of Evaluation Date of Evaluation: 04/12/17 Time of Evaluation: 09:20 - Subjective Subjective: S&E at bedside, patient is more alert today, no acute overnight events reported , no diarrhea reported, just had a smear. No overt GI bleeding reported. Had swallow eval yesterday, back on puree diet w/ nectar thick with assistance. Less congested. Objective - Vital Signs/Intake and Output Vital Signs (last 24 hours): Temp Pulse Resp BP Pulse Ox 99 F 96 H 21 131/74 96 04/12/17 08:36 04/12/17 08:36 04/12/17 08:36 04/12/17 08:36 04/12/17 08:36 Intake and Output: 04/12/17 04/12/17 06:59 18:59 Intake Total 100 0 Balance 100 0 - Medications Medications: Current Medications Acetaminophen (Tylenol 650 Mg Supp) 650 mg RC Q6H PRN PRN Reason: Fever >100.4 F Last Admin: 04/11/17 05:58 Dose: 650 mg Albuterol/Ipratropium (Duoneb 3 Mg/0.5 Mg (3 Ml) Ud) 3 ml IH [id number] [facility] Last Admin: 04/12/17 11:22 Dose: 3 ml Aspirin (Ecotrin) 81 mg PO DAILY [facility] Last Admin: 04/12/17 10:09 Dose: 81 mg Nystatin/Triamcinolone Acetonide (Nystatin/Triamcinolone Cream) 0 ea TOP BID [facility] Last Admin: 04/12/17 10:09 Dose: 1 applic Quetiapine Fumarate (Seroquel) 12.5 mg PO HS [facility] PRN Reason: Protocol Last Admin: 04/11/17 21:29 Dose: Not Given - Labs Labs: 04/10/17 07:30 04/10/17 07:30 PT 11.3 Seconds (9.9-11.8) 04/06/17 14:16 INR 1.05 (0.93-1.08) 04/06/17 14:16 APTT 30.4 Seconds (23.7-30.8) 04/06/17 14:16 - Constitutional Appears: No Acute Distress - Head Exam Head Exam: NORMOCEPHALIC - Eye Exam Eye Exam: Normal appearance. absent: Scleral icterus - ENT Exam ENT Exam: Mucous Membranes Moist - Neck Exam Neck Exam: Normal Inspection - Respiratory Exam Respiratory Exam: NORMAL BREATHING PATTERN. absent: Respiratory Distress - Cardiovascular Exam Cardiovascular Exam: +S1, +S2 - GI/Abdominal Exam GI & Abdominal Exam: Soft, Normal Bowel Sounds. absent: Guarding, Tenderness, Rebound - Extremities Exam Extremities Exam: Normal Capillary Refill. absent: Calf Tenderness, Pedal Edema - Neurological Exam Neurological Exam: Awake, Oriented x3 - Skin Skin Exam: Dry, Warm Assessment and Plan - Assessment and Plan (Free Text) Assessment: Assessment: Fever Dehydration Improved Diarrhea, CDiff, negative, status post CT scan showing rectosigmoiditis History of CVA Dementia Anemia, H/H steady Hypertension Diabetes mellitus H/O acute mesenteric ischemia status post angio Plan: off antibiotics, stool studies negative and blood cultures On aspirin SCD boots Monitor electrolytes monitor H/H on puree diet w/ nectar thick aspiration precaution plan for dc today rehab Seen and discussed with Dr. Monterroso.
--- NOTE | 2017-04-13 01:30 | PN ---
DATE: 04/12/2017 SUBJECTIVE: The patient was seen earlier this morning in room 375, bed 1. No fevers. No chills. Chronically ill, debilitated in state. PHYSICAL EXAMINATION VITAL SIGNS: Temperature 99, blood pressure 130/70, respiratory rate of 21, heart rate of 96. HEENT: Unremarkable. NECK: Supple. LUNGS: Decreased breath sounds. HEART: Normal S1, S2. ABDOMEN: Soft. LABORATORY DATA: Reveals white count of 9000, hemoglobin 9. Chemistries; BUN 13, creatinine of 0.9. Microbiology is noted. ASSESSMENT AND PLAN: This is a 81-year-old with diarrhea associated with rectosigmoid colitis and history of mesenteric ischemia. The patient was seen off of antibiotics earlier, doing well, no fevers. Overall, prognosis is poor for this patient, who appears weak. Moe Zamora MD
--- NOTE | 2017-04-13 12:31 | CP.PCM.CON ---
History of Present Illness - History of Present Illness History of Present Illness: Palliative consult requested by Dr Andrew Newman Reason: Advance care planning 81 year old male who was sent to ED by [facility] because of loose stool and dehydration. He was febrile 99.9F with elevate white count. Ct scna of abdomen showed rectosigmoid colitis. PMHX: CVA ,HTN,DM, macular degeneration, chronic mesenteric ischemia s/p SMA and RAINA angioplasty, delirium Social History: No alcohol or drug use. Lives with spouse Family History: Non contributory Advance Care Planning: The patient does not have an Advance Directive. Review of Systems: As per HPI, the patient is demented, unable to obtain. Past Patient History - Infectious Disease Hx of Infectious Diseases: None - Tetanus Immunizations Tetanus Immunization: Unknown - Past Social History Smoking Status: Former Smoker - CARDIAC Hx Cardiac Disorders: Yes Hx Hypertension: Yes - PULMONARY Hx Respiratory Disorders: No - NEUROLOGICAL HX Cerebrovascular Accident: Yes (2014) - HEENT Hx Macular Degeneration: Yes Other/Comment: egd for removal of foreign body 06/08/14 - RENAL Hx Chronic Kidney Disease: No - ENDOCRINE/METABOLIC Hx Diabetes Mellitus Type 2: Yes - HEMATOLOGICAL/ONCOLOGICAL Hx Blood Disorders: No - INTEGUMENTARY Other/Comment: reddened sacrum/ long curled thick toenails both feet/ unable to do proper skin assesment due to agitationrefusing to turn, has rash b/l groin lower abd and buttocks, left hand eccymotic, redness to left wrist, left 5th toe light purple in color - MUSCULOSKELETAL/RHEUMATOLOGICAL Hx Musculoskeletal Disorders: (b/l leg pain) Hx Falls: Yes (FREQUENT RECENT) Hx Unsteady Gait: Yes (w/ch can't walk/stand) - GASTROINTESTINAL Hx Gastrointestinal Disorders: No Other/Comment: egd for removal of foreigh body - GENITOURINARY/GYNECOLOGICAL Hx Incontinence: Yes Other/Comment: too weak to walk to bathroom/frequent falls - PSYCHIATRIC Hx Psychophysiologic Disorder: No Hx Depression: Yes Hx Emotional Abuse: No Hx Physical Abuse: No Other/Comment: up at night/pushes furniture/ jumps oob/ can become violent - SURGICAL HISTORY Hx Appendectomy: Yes Other/Comment: sebaceous cyst removal - ANESTHESIA Hx Anesthesia Reactions: Yes Hx Malignant Hyperthermia: No Meds Home Medications: Home Medication List Medication Instructions Recorded Confirmed Type Acetaminophen [Tylenol 650 mg Supp] 650 mg RC Q6H PRN sup 04/12/17 Rx Albuterol/Ipratropium [Duoneb 3 3 ml IH [id number] 04/12/17 Rx mg/0.5 mg (3 ml) UD] Nystatin/Triamcinolone 1 applic TOP BID 04/12/17 Rx [Nystatin/Triamcinolone Cream] Allergies/Adverse Reactions: Allergies Allergy/AdvReac Type Severity Reaction Status Date / Time No Known Allergies Allergy Verified 04/06/17 13:53 Physical Exam - Constitutional Appears: Chronically Ill - Head Exam Head Exam: NORMOCEPHALIC - Eye Exam Eye Exam: Normal appearance, PERRL - ENT Exam ENT Exam: Mucous Membranes Moist - Respiratory Exam Respiratory Exam: Clear to Auscultation Bilateral, NORMAL BREATHING PATTERN - Cardiovascular Exam Cardiovascular Exam: REGULAR RHYTHM, +S1, +S2 - GI/Abdominal Exam GI & Abdominal Exam: Normal Bowel Sounds, Soft - Extremities Exam Extremities exam: Positive for: normal inspection, pedal pulses present - Back Exam Back exam: NORMAL INSPECTION - Neurological Exam Neurological exam: Altered - Skin Skin Exam: Dry, Pallor - Additional Findings Additional findings: Palliative performance status 40% Results - Vital Signs Recent Vital Signs: Last Vital Signs Temp 99 F 04/12/17 08:36 Pulse 96 H 04/12/17 08:36 Resp 21 04/12/17 08:36 BP 131/74 04/12/17 08:36 Pulse Ox 96 04/12/17 08:36 - Labs Result Diagrams: 04/10/17 07:30 04/10/17 07:30 Assessment & Plan - Assessment and Plan (Free Text) Assessment: 69 year old male with history of dementia and chronic mesenteric ischemia who as admitted with fever. I have discussed advance care planning and resuscitation status with patients and daughter in the past. The did not want to enact a POLST at that time. I spoke with via phone today and offered to assist with advance care planning. is not interested in completing POLST and does not want to change resuscitation status to DNR/DNI at this time Time spent in advance care planning discussion, 15 minutes Plan: Advance Care Planning - Date & Time Date: 04/12/17 Time: 11:00
== END 2017-04-12 15:08 | DRG 391 ==
LOC: ED 13:26 → ERH 15:47 → 3RSO 17:58
PROVIDERS: ADMIT Internal Medicine Nephrology; ATTEND Internal Medicine Nephrology
DX: K52.9 Noninfective gastroenteritis and colitis, unspecified (principal); A41.9 Sepsis, unspecified organism; G92 Toxic encephalopathy; J90 Pleural effusion, not elsewhere classified; E86.0 Dehydration; G30.9 Alzheimer's disease, unspecified; F02.80 Dementia in other diseases classified elsewhere, unspecified severity, without behavioral disturbance, psychotic disturbance, mood disturbance, and anxiety; E11.22 Type 2 diabetes mellitus with diabetic chronic kidney disease; H35.30 Unspecified macular degeneration; I12.9 Hypertensive chronic kidney disease with stage 1 through stage 4 chronic kidney disease, or unspecified chronic kidney disease; N18.9 Chronic kidney disease, unspecified; F32.9 Major depressive disorder, single episode, unspecified; R26.9 Unspecified abnormalities of gait and mobility; K80.20 Calculus of gallbladder without cholecystitis without obstruction; D64.9 Anemia, unspecified; M79.81 Nontraumatic hematoma of soft tissue; E11.649 Type 2 diabetes mellitus with hypoglycemia without coma; J98.01 Acute bronchospasm; Z86.73 Personal history of transient ischemic attack (TIA), and cerebral infarction without residual deficits; Z87.891 Personal history of nicotine dependence

== ENCOUNTER 2017-06-05 12:03 | Inpatient (IN) | payer MEDICARE, OTHER ==
--- NOTE | 2017-06-05 12:30 | ED PDOC ---
Arrival/HPI - General Chief Complaint: Trauma Time Seen by Provider: 06/05/17 12:20 - History of Present Illness Narrative History of Present Illness (Text): 06/05/17 12:27 Patient is a 81 y/o M with dementia, cva, bed bound, presenting after fall. EMS reports that patient was found next to bed with rails up under a amando. Patient's reports that he "must have slid out the end of the bed." Patient has dementia and reports "I fell down the stairs" but he lives on bottom floor of [facility], is bedbound and history in conflict of EMS and . Patient has no complaints but ROS limited by dementia. Called for collateral and she reports that she is unable to take care of patient, but won' t commit to long term. She reports patient has had decreased po intake over last few days. Past Medical History - Provider Review Nursing Documentation Reviewed: Yes - Infectious Disease Hx of Infectious Diseases: None - Tetanus Immunization Tetanus Immunization: Unknown - Cardiac Hx Cardiac Disorders: Yes Hx Hypertension: Yes - Pulmonary Hx Respiratory Disorders: No - Neurological HX Cerebrovascular Accident: Yes (2014) Hx Dementia: Yes - HEENT Hx Macular Degeneration: Yes Other/Comment: egd for removal of foreign body 06/08/14 - Renal Hx Renal Disorder: No - Endocrine/Metabolic Hx Diabetes Mellitus Type 2: Yes - Hematological/Oncological Hx Blood Disorders: No - Integumentary Other/Comment: reddened sacrum/ long curled thick toenails both feet/ unable to do proper skin assesment due to agitationrefusing to turn, has rash b/l groin lower abd and buttocks, left hand eccymotic, redness to left wrist, left 5th toe light purple in color - Musculoskeletal/Rheumatological Hx Musculoskeletal Disorders: (b/l leg pain) Hx Falls: Yes (FREQUENT RECENT) Hx Unsteady Gait: Yes (w/ch can't walk/stand) - Gastrointestinal Hx Gastrointestinal Disorders: No Other/Comment: egd for removal of foreigh body - Genitourinary/Gynecological Hx Incontinence: Yes Other/Comment: too weak to walk to bathroom/frequent falls - Psychiatric Hx Psychophysiologic Disorder: No Hx Depression: Yes Hx Emotional Abuse: No Hx Physical Abuse: No Hx Substance Use: No Other/Comment: up at night/pushes furniture/ jumps oob/ can become violent - Surgical History Hx Appendectomy: Yes Other/Comment: sebaceous cyst removal - Anesthesia Hx Anesthesia Reactions: Yes Hx Malignant Hyperthermia: No - Suicidal Assessment Feels Threatened In Home Enviroment: No Family/Social History - Physician Review Nursing Documentation Reviewed: Yes Family/Social History: No Known Family HX Smoking Status: Former Smoker Hx Alcohol Use: No Hx Substance Use: No Hx Substance Use Treatment: No Allergies/Home Meds Allergies/Adverse Reactions: Allergies No Known Allergies Allergy (Verified 06/05/17 12:16) Per EMS and which is at home. Pt is confused due to dementia Hx Home Medications: Home Meds Medication Instructions Recorded Confirmed Unobtainable 06/05/17 06/05/17 Review of Systems - Physician Review All systems were reviewed & negative as marked: Yes - Review of Systems Systems not reviewed;Unavailable: Dementia Constitutional: absent: Fevers Respiratory: absent: SOB Cardiovascular: absent: Chest Pain Gastrointestinal: absent: Abdominal Pain Musculoskeletal: Arthralgias (R foot pain) Neurological: absent: Headache Physical Exam Vital Signs Reviewed: Yes Vital Signs Temp Pulse Resp BP Pulse Ox 06/05/17 16:10 87 16 140/87 96 06/05/17 14:20 80 17 144/91 H 98 06/05/17 12:04 97.8 F 120 H 17 139/96 H 97 Temperature: Afebrile Blood Pressure: Normal Pulse: Tachycardic Respiratory Rate: Normal Appearance: Positive for: Well-Appearing, Non-Toxic, Comfortable Pain Distress: None Mental Status: Positive for: other (alert but confused) - Systems Exam Head: Present: Atraumatic, Normocephalic Pupils: Present: PERRL Extroacular Muscles: Present: EOMI Conjunctiva: Present: Normal Mouth: Present: Dry Neck: Present: Normal Range of Motion. No: MIDLINE TENDERNESS Respiratory/Chest: Present: Clear to Auscultation, Good Air Exchange. No: Respiratory Distress, Accessory Muscle Use Cardiovascular: Present: Normal S1, S2, Tachycardic. No: Murmurs Abdomen: No: Tenderness, Distention, Rebound, Guarding Back: Present: Normal Inspection, Other (no bony hip tenderness). No: CVA Tenderness, Midline Tenderness Upper Extremity: Present: Other (moving upper and lower extremities spontaneously) Lower Extremity: Present: Other (R heel ulcer) Psychiatric: Present: Alert Medical Decision Making ED Course and Treatment: Report Date : 06/05/2017 13:26:27 PROCEDURE: CT HEAD WITHOUT CONTRAST. Dictator : Ira Guillen MD IMPRESSION: 1. No acute intracranial abnormality. 2. 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 A dedicated MRI of the brain with pituitary protocol without and with intravenous contrast is recommended for further evaluation. 3. 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 4. Mild chronic microangiopathic changes and moderate age-related global parenchymal volume loss. 06/05/17 12:14 EKG shows sinus tachycardia at 132 BPM, clear p waves. Interpreted by me. 06/05/17 14:08 EKG shows sinus tachycardia at 117 BPM. Interpreted by me. Report Date : 06/05/2017 14:13:39 Procedure: Chest xray Dictator : Ira Guillen MD IMPRESSION: No active pulmonary disease. 06/05/17 14:16 Labs reviewed, lactate of 2.2. Patients only SIRS criteria is tachycardia, which has improved after IV fluid hydration. Patient does not meet code spesis criteria at this time. Report Date : 06/05/2017 14:23:18 PROCEDURE: Radiographs of the pelvis. Dictator : Ira Guillen MD IMPRESSION: No acute displaced fracture or dislocation. Please note occult fractures cannot be excluded on plain radiographs. If there is a persistent clinical concern, an MRI of the hip may be performed for further evaluation. 06/05/17 14:25 EKG shows NSR at 79bpm with pvcs. Inverted t waves in v3-v6, unchanged from prior. HR improved after 500cc IVF 06/05/17 15:32 Labs reviewed. Patient has mildly elevated wbc count and lactate. Elevated bun /creatinine consistent with acute renal failure. IVF infusing. Urinalysis shows leukocytes and WBCs. Urine culture sent and antibiotics started. Will admit to Dr. Newman for fall, dehydration, renal failure, and UTI. 06/05/17 15:[address] Newman, who accepts patient admission - Lab Interpretations Lab Results: 06/05/17 13:23 Lab Results 06/05/17 14:50: PT 11.8, INR 1.09 H, APTT 29.7 06/05/17 14:45: Urine Color Yellow, Urine Appearance Sl cloudy, Urine pH 6.5, Ur Specific [place] 1.020, Urine Protein 100 H, Urine Glucose (UA) Negative, Urine Ketones Negative, Urine Blood Moderate H, Urine Nitrate Negative, Urine Bilirubin Negative, Urine Urobilinogen 0.2, Ur Leukocyte Esterase Large H, Urine RBC 1 - 3, Urine WBC Tntc, Urine Bacteria Few 06/05/17 13:23: pO2 40, VBG pH 7.32, VBG pCO2 55.0, VBG HCO3 28.3 H, VBG Total CO2 30.0 H, VBG O2 Sat (Calc) 77.5 H, VBG Base Excess 1.1, VBG Potassium 4.4, Sodium 137.0, Chloride 103.0, Glucose 130 H, Lactate 2.2 H, FiO2 21.0, Venous Blood Potassium 4.4 06/05/17 13:23: WBC 11.9 H D, RBC 3.81, Hgb 11.3 L, Hct 34.4 L, MCV 90.3, MCH 29.7, MCHC 32.8, RDW 15.3 H, Plt Count 357, MPV 10.1, Gran % 70.6 H, Lymph % ( Auto) 16.0 L, [place] % (Auto) 7.1 H, Eos % (Auto) 4.4, Baso % (Auto) 1.9, Gran # 8.41 H, Lymph # 1.9, [place] # 0.9 H, Eos # 0.5, Baso # 0.23 - RAD Interpretation Radiology Orders: 06/05/17 12:25 HEAD W/O CONTRAST [CT] Stat CHEST PORTABLE [RAD] Stat 06/05/17 12:33 Hip Bi with Pelvis Fall Protocol [HIP MIN 2V W/ PELVIS VERONICA] [RAD] Stat - Medication Orders Current Medication Orders: Sodium Chloride (Sodium Chloride 0.9%) 1,000 mls @ 100 mls/hr IV .Q10H OMAR Last Admin: 06/05/17 12:53 Dose: 100 mls/hr Discontinued Medications Sodium Chloride (Sodium Chloride 0.9%) 500 mls @ 999 mls/hr IV .Q31M STA Stop: 06/05/17 13:01 Last Admin: 06/05/17 12:52 Dose: 999 mls/hr Sodium Chloride (Sodium Chloride 0.9%) 500 mls @ 999 mls/hr IV .Q31M STA Stop: 06/05/17 14:56 Last Admin: 06/05/17 14:43 Dose: 999 mls/hr Ceftriaxone Sodium (Rocephin 1 Gram Ivpb) 1 gm in 100 mls @ 200 mls/hr IVPB STAT STA PRN Reason: Protocol Stop: 06/05/17 16:01 Last Admin: 06/05/17 16:17 Dose: 200 mls/hr Disposition/Present on Arrival - Present on Arrival Any Indicators Present on Arrival: No History of DVT/PE: No History of Uncontrolled Diabetes: No Urinary Catheter: No History of Decub. Ulcer: No History Surgical Site Infection Following: None - Disposition Have Diagnosis and Disposition been Completed?: Yes Diagnosis: Leukocytosis, Renal failure, Fall, UTI (urinary tract infection), Dehydration Disposition: HOSPITALIZED Disposition Time: 15:32 Patient Plan: Admission Condition: FAIR
[2017-06-05] MEDS ORDERED: Sodium Chloride 0.9% 500 ML IV STA ×2 (12:31→14:26)
[2017-06-05] MEDS: Sodium Chloride 0.9% 1,000 ML IV SCH (12:53)
--- NOTE | 2017-06-05 13:27 | CT ---
PROCEDURE: CT HEAD WITHOUT CONTRAST. HISTORY: fall COMPARISON: 04/09/2017. TECHNIQUE: Axial computed tomography images were obtained through the head/brain without intravenous contrast. Radiation dose: Total exam DLP = 822.6 to mGy-cm. This CT exam was performed using one or more of the following dose reduction techniques: Automated exposure control, adjustment of the mA and/or kV according to patient size, and/or use of iterative reconstruction technique. FINDINGS: HEMORRHAGE: No intracranial hemorrhage. BRAIN: There is enlargement of the sella turcica of and enlarged pituitary gland with soft tissue density in the suprasellar cistern. There are moderate chronic microangiopathic changes. There is no mass, mass effect or abnormal extra-axial fluid collection. There is an old infarction in the right basal ganglia and posterior limb of the internal capsule. There are stable senile calcifications in bilateral basal ganglia and thalami. There is cystic encephalomalacia in the right posterior inferior cerebellar hemisphere. VENTRICLES: There is moderate age-related global parenchymal volume loss and proportionate enlargement of the ventricles and cortical sulci. CALVARIUM: Unremarkable. PARANASAL SINUSES: Predominantly clear. MASTOID AIR CELLS: There is cerumen in the right duct stone enlarged with canal and chronic inflammatory changes in the right mastoid air cells. OTHER FINDINGS: None. IMPRESSION: 1. No acute intracranial abnormality. 2. 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 A dedicated MRI of the brain with pituitary protocol without and with intravenous contrast is recommended for further evaluation. 3. 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 4. Mild chronic microangiopathic changes and moderate age-related global parenchymal volume loss.
[2017-06-05 13:31] LABS: BASO # 0.23 K/mm3 (0.0-2.0); BASO % 1.9 % (0.0-3.0); EOS # 0.5 (0.0-0.7); EOS % 4.4 % (1.5-5.0); GRAN # 8.41 (1.4-6.5); GRAN % 70.6 % (50.0-68.0); HEMATOCRIT 34.4 % (42.0-52.0); LYMPH # 1.9 (1.2-3.4); MEAN CELL VOLUME 90.3 fl (80.0-105.0); MEAN CORPUSCULAR HEMOGLOBIN 29.7 pg (25.0-35.0); MEAN CORPUSCULAR HGB CONC 32.8 g/dl (31.0-37.0); MEAN PLATELET VOLUME 10.1 fl (7.0-11.0); MONO # 0.9 (0.1-0.6); MONO % 7.1 % (1.0-6.0); RED CELL DISTRIBUTION WIDTH 15.3 % (11.5-14.5); WHITE BLOOD COUNT 11.9 10^3/ul (4.5-11.0)
[2017-06-05 13:36] LABS: VENOUS BLOOD GAS BASE EXCESS 1.1 mmol/L (0.0-2.0); VENOUS BLOOD PH 7.32 (7.32-7.43)
--- NOTE | 2017-06-05 14:15 | RAD ---
HISTORY: ... COMPARISON: 04/06/2017. FINDINGS: LUNGS: The lungs are hyperinflated and there is peribronchial thickening with chronic changes in both lungs. No focal consolidation. PLEURA: No significant pleural effusion identified, no pneumothorax apparent. CARDIOVASCULAR: Normal. The heart is normal in size. Atherosclerotic aortic arch calcifications are present. OSSEOUS STRUCTURES: No significant abnormalities. VISUALIZED UPPER ABDOMEN: Normal. OTHER FINDINGS: None. IMPRESSION: No active pulmonary disease.
--- NOTE | 2017-06-05 14:25 | RAD ---
PROCEDURE: Radiographs of the pelvis. HISTORY: fall COMPARISON: None. FINDINGS: BONES: The pelvic ring is intact. There is no acute displaced fracture or bone destruction. There is diffuse bone demineralization. JOINTS: Sacroiliac Joints: Unremarkable. Pubic Symphysis: Unremarkable. OTHER FINDINGS: There is a small calcification lateral to the right greater trochanter. IMPRESSION: No acute displaced fracture or dislocation. Please note occult fractures cannot be excluded on plain radiographs. If there is a persistent clinical concern, an MRI of the hip may be performed for further evaluation.
[2017-06-05 15:14] LABS: PH,URINE 6.5 (4.7-8.0); URINE BILIRUBIN NEGATIVE (NEGATIVE); URINE BLOOD MODERATE (NEGATIVE); URINE GLUCOSE (UA) NEGATIVE (NEGATIVE); URINE KETONE NEGATIVE (NEGATIVE); URINE LEUKOCYTE ESTERASE LARGE Leu/uL (NEGATIVE); URINE PROTEIN 100 mg/dL (<30 mg/dL); URINE UROBILINOGEN 0.2 E.U./dL (<1 E.U./dL)
[2017-06-05 15:15] LABS: URINE APPEARANCE SL CLOUDY (CLEAR); URINE COLOR YELLOW (YELLOW)
[2017-06-05 15:20] LABS: URINE BACTERIA FEW (NEG); URINE WBC TNTC /hpf (0-6)
[2017-06-05] MEDS ORDERED: cefTRIAXone 1 gm 1 GM/100 ML BAG IVPB STA (15:32)
[2017-06-05 15:33] LABS: INR 1.09 (0.93-1.08); PARTIAL THROMBOPLASTIN TIME 29.7 Seconds (23.7-30.8)
[2017-06-05 16:42] LABS: ALB/GLOB RATIO 0.9 (1.1-1.8); BILIRUBIN,TOTAL 0.5 mg/dL (0.2-1.3); CALCIUM 8.8 mg/dL (8.4-10.5); MAGNESIUM 1.8 mg/dL (1.7-2.2); PHOSPHOROUS 5.1 mg/dL (2.5-4.5); POTASSIUM 4.3 mmol/L (3.6-5.0); TOTAL PROTEIN 6.6 g/dL (5.8-8.3)
[2017-06-05 17:19] LABS: VENOUS BLOOD GAS BASE EXCESS 1.5 mmol/L (0.0-2.0); VENOUS BLOOD PH 7.33 (7.32-7.43)
--- NOTE | 2017-06-05 20:46 | CARD ---
APPROVED REPORT EKG Measurement Heart [id number] <Conclusion> Sinus rhythm with occasional premature ventricular complexes T wave abnormality, consider anterolateral ischemia Prolonged QT Abnormal ECG
--- NOTE | 2017-06-05 20:50 | CARD ---
APPROVED REPORT EKG Measurement Heart [id number] <Conclusion> Supraventricular tachycardia Nonspecific T wave abnormality Abnormal ECG
[2017-06-06] MEDS ORDERED: Pneumococcal 23-Valent Vaccine IM ONE (02:06)
[2017-06-06 02:07] VITALS: BMI 17.9
[2017-06-06 07:05] LABS: HEMATOCRIT 31.1 % (42.0-52.0); MEAN CELL VOLUME 89.6 fl (80.0-105.0); MEAN CORPUSCULAR HEMOGLOBIN 29.1 pg (25.0-35.0); MEAN CORPUSCULAR HGB CONC 32.5 g/dl (31.0-37.0); MEAN PLATELET VOLUME 9.4 fl (7.0-11.0); RED CELL DISTRIBUTION WIDTH 15.3 % (11.5-14.5); WHITE BLOOD COUNT 8.9 10^3/ul (4.5-11.0)
[2017-06-06 08:04] LABS: ALB/GLOB RATIO 0.9 (1.1-1.8); BILIRUBIN,TOTAL 0.5 mg/dL (0.2-1.3); CALCIUM 8.9 mg/dL (8.4-10.5); MAGNESIUM 1.8 mg/dL (1.7-2.2); PHOSPHOROUS 5.1 mg/dL (2.5-4.5); POTASSIUM 4.3 mmol/L (3.6-5.0); TOTAL PROTEIN 6.9 g/dL (5.8-8.3)
[2017-06-06] MEDS ORDERED: cefTRIAXone 1 gm 1 GM/100 ML BAG IVPB SCH (11:15)
[2017-06-06] MEDS: Sodium Chloride 0.9% 1,000 ML IV SCH (13:47)
[2017-06-06 15:04] LABS: HEMATOCRIT 28.1 % (42.0-52.0); MEAN CELL VOLUME 88.6 fl (80.0-105.0); MEAN CORPUSCULAR HGB CONC 32.7 g/dl (31.0-37.0); MEAN PLATELET VOLUME 9.6 fl (7.0-11.0); WHITE BLOOD COUNT 9.1 10^3/ul (4.5-11.0)
--- NOTE | 2017-06-07 04:12 | HP ---
CHIEF COMPLAINT AND HISTORY OF PRESENT ILLNESS: This is a 81-year-old male who is coming to the hospital with past medical history of dementia, CVA. The patient has been bed-bound. He is confused. The patient's reported to the ER that the patient may have slid out of bed and landed on the floor. Patient's is having a difficult time in managing him at home. The patient is confused, he is not able to give much of the history. Most of the information was taken from the medical records when I have seen him in the past. ALLERGIES: NO KNOWN DRUG ALLERGIES. MEDICATIONS: His medications have been reviewed. 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 PAST SURGICAL HISTORY: Appendectomy. FAMILY HISTORY: Noncontributory. SOCIAL HISTORY: He lives in home. Denies smoking or drinking. PHYSICAL EXAMINATION VITAL SIGNS: Temperature is 97, pulse of 83, blood pressure 130/94, respirations 20, O2 saturation 98%. Height is 5 feet 10 inches, weight is 125 pounds. BMI is 17.9. GENERAL: The patient lying in bed, uncomfortable, and in no acute distress. HEENT: Atraumatic and normocephalic. Anicteric sclerae. Moist mucosa. [place] conjunctivae. No oral lesions. NECK: No JVD, anterior and posterior adenopathy, thyromegaly, or bruits. CARDIOVASCULAR: S1 and S2 regular. No murmur, rubs, or gallop. LUNGS: Clear to auscultation bilaterally. No wheezes, rales, or rhonchi. ABDOMEN: Bowel sounds are positive. Soft, nontender and nondistended. No hepatosplenomegaly. No rebound and no guarding. EXTREMITIES: No cyanosis, clubbing, or edema. NEUROLOGIC: No facial asymmetry. Tongue is midline. No uvula deviation. Power is 5/5 upper extremity and lower extremity. Sensation intact in upper extremity and lower extremity. PSYCHIATRIC: Unable to assess. Patient is awake and alert, but unable to focus on his questions and give proper answers. GENITOURINARY: No CVA tenderness. VASCULAR: 2+ pulses in the carotid pulses and pedal pulses. SKIN: No erythema or nodules. SPINE: Shows normal curvature. EXTREMITIES: No cyanosis and clubbing, no edema. EKG shows sinus rhythm with occasional PVCs, QTc is 502, it is sinus rhythm. Chest X-ray done shows no acute pulmonary disease. CT of the head done shows no acute intracranial abnormalities. There is enlargement of the sella turcica, soft tissue density in the pituitary gland. Hip x-ray done shows no acute displaced fracture or dislocation. LABORATORY DATA: White count of 11.9, hemiglobin 11.2 and platelet count 367. Chemistry shows creatinine is 3.3. Rest of the labs has been reviewed. Patient blood is moderate. Esterase is large. ASSESSMENT: 1. Fall. 2. Kidney injury. 3. Cholelithiasis. 4. Hypertension. 5. Diabetes. 6. Prolonged QTc 551. 7. Possible urinary tract infection. 8. Dementia, Alzheimer's type. 9. Macular degeneration. 10. History of mesenteric ischemia of the superior mesenteric artery, status post angioplasty. PLAN: The patient is going to be admitted in the hospital. Patient is on Protonix daily. He is going to continue with Rocephin for antibiotics. Patient is on Seroquel. Patient is on IV fluids and normal saline, going to be placed on dysphagia diet. I will get consult with psychiatry to better manage the patient's symptoms. We will also get consult with palliative care to see if the patient needs POLST form done or advanced directives. The patient's has had more difficulty in managing the patient at home and patient may require long term care phlebotomist care which she has rejected in the past. Jakob Newman MD
[2017-06-07] MEDS: Pantoprazole 40 mg EC Tab PO SCH (06:00)
--- NOTE | 2017-06-07 07:02 | PN ---
DATE: 06/07/2017 SUBJECTIVE: The patient has no complaints of any chest pain, no shortness of breath, no headache or dizziness. PHYSICAL EXAMINATION: VITAL SIGNS: Temperature is 98.8, pulse is 70, blood pressure is 139/91 and respiration 22. GENERAL: The patient is lying in bed, flat, comfortable. HEENT: No oral lesion. Anicteric sclerae. Moist mucosa. NECK: No JVD, adenopathy, or thyromegaly. CARDIOVASCULAR: S1 and S2, regular. No murmurs, rubs, or gallops. LUNGS: Clear to auscultation bilaterally. No wheeze, rales, or rhonchi. ABDOMEN: Bowel sounds are positive, soft, nontender and nondistended. EXTREMITIES: No cyanosis, clubbing or edema. LABS: The hip x-rays showed no evidence of fracture. ASSESSMENT: 1. Acute kidney injury. 2. Fall. 3. Hypertension. 4. Diabetes type 2. 5. Prolonged QTc of 551. 6. Possible urinary tract infection. 7. Dementia, Alzheimer's type. 8. Macular degeneration. 9. History of mesenteric ischemia with superior mesenteric artery angioplasty. PLAN: The patient is going to continue with his IV fluids. His creatinine remained significantly elevated from his baseline. The baseline creatinine was 0.9. His blood cultures and urine cultures have been negative, unlikely the patient has urinary tract infection. The patient is on Protonix daily. He is going to continue with his IV fluids. I will lower his rate of the IV fluid that he is on. I have asked psychiatry to evaluate the patient for Seroquel. Probable D/C in am if Cr continues to improve. Jakob Newman MD [facility]
[2017-06-07 07:29] LABS: HEMATOCRIT 26.4 % (42.0-52.0); MEAN CELL VOLUME 88.9 fl (80.0-105.0); MEAN CORPUSCULAR HEMOGLOBIN 29.3 pg (25.0-35.0); MEAN PLATELET VOLUME 9.9 fl (7.0-11.0); RED CELL DISTRIBUTION WIDTH 15.2 % (11.5-14.5); WHITE BLOOD COUNT 9.9 10^3/ul (4.5-11.0)
[2017-06-07 07:40] LABS: ALB/GLOB RATIO 0.8 (1.1-1.8); BILIRUBIN,TOTAL 0.3 mg/dL (0.2-1.3); CALCIUM 8.1 mg/dL (8.4-10.5); POTASSIUM 3.9 mmol/L (3.6-5.0); TOTAL PROTEIN 5.6 g/dL (5.8-8.3)
[2017-06-07] MEDS: Sodium Chloride 0.9% 1,000 ML IV SCH (08:00)
--- NOTE | 2017-06-07 16:22 | CP.PCM.PCO ---
Addendum Addendum: 06/07/17 16:21 d/w , no acute distress, pt was not agitated or aggressive, for now will hold seroquel, will give remeron 7.5mg hs for insomnia will f/u on EKG pt will be seen tomorrow
[2017-06-08] MEDS: Pantoprazole 40 mg EC Tab PO SCH (07:01)
[2017-06-08] MEDS: Sodium Chloride 0.9% 1,000 ML IV SCH (07:27)
[2017-06-08 09:16] LABS: BASO # 0.17 K/mm3 (0.0-2.0); BASO % 1.7 % (0.0-3.0); EOS # 0.5 (0.0-0.7); EOS % 4.9 % (1.5-5.0); GRAN # 6.92 (1.4-6.5); GRAN % 68.8 % (50.0-68.0); HEMATOCRIT 30.7 % (42.0-52.0); LYMPH # 1.8 (1.2-3.4); LYMPH % 17.6 % (22.0-35.0); MEAN CELL VOLUME 89.2 fl (80.0-105.0); MEAN CORPUSCULAR HEMOGLOBIN 29.1 pg (25.0-35.0); MEAN CORPUSCULAR HGB CONC 32.6 g/dl (31.0-37.0); MEAN PLATELET VOLUME 9.6 fl (7.0-11.0); MONO # 0.7 (0.1-0.6); RED CELL DISTRIBUTION WIDTH 15.2 % (11.5-14.5); WHITE BLOOD COUNT 10.1 10^3/ul (4.5-11.0)
[2017-06-08 09:24] LABS: CALCIUM 8.5 mg/dL (8.4-10.5); POTASSIUM 3.8 mmol/L (3.6-5.0)
--- NOTE | 2017-06-08 09:32 | PN ---
DATE: 06/08/2017 HISTORY OF PRESENT ILLNESS: The patient is a 81-year-old male with history of CVA, dementia. He is bed-bound. He fell in the house, brought to the ED by . He has a history of chronic kidney disease, Alzheimer's, macular degeneration, history of mesenteric ischemia, status post angioplasty. No events overnight. ALLERGIES: NO KNOWN DRUG ALLERGIES. MEDICATIONS: Reviewed. PAST MEDICAL HISTORY: Hypertension, diabetes mellitus type 2, macular degeneration, urinary incontinence, history of mesenteric ischemia. PAST SURGICAL HISTORY: Appendectomy, mesenteric artery angioplasty. FAMILY HISTORY: Noncontributory. SOCIAL HISTORY: Lives at home with . PHYSICAL EXAMINATION GENERAL: Comfortable in bed, in no acute distress. VITAL SIGNS: Temperature is 98.7, heart rate is 83 per minute, blood pressure 120/90, oxygen saturation 98% on room air. HEENT: Normal. Pallor positive. NECK: Supple. No lymphadenopathy. CHEST: Air entry present and equal bilaterally. No added sounds. CARDIOVASCULAR: S1 and S2 normal. No murmur. No gallop. ABDOMEN: Soft and nontender. No hepatosplenomegaly. EXTREMITIES: No edema. NEUROLOGIC: Alert and oriented x3. No focal sensory or motor deficits. SKIN: No petechiae. No rash. LABORATORY DATA: White count 11.9, hemoglobin 8.7, hematocrit 26.4, and platelet count 278. Sodium 138, potassium 3.9, creatinine 2.6. Urine culture, no growth; blood culture, no growth. MEDICATIONS: , Remeron 7.5 mg h.s., Protonix 40 mg daily, IV fluid at an hour. ASSESSMENT AND PLAN: History of fall at home, acute kidney injury, hypertension, diabetes mellitus type, macular degeneration, history of mesenteric ischemia, anemia, leukocytosis. PLAN: We will continue current medications. No evidence of infection. Urine culture and blood culture negative. Psych consult requested. Recommended to hold Seroquel, Remeron 7.5 mg for insomnia. Hemoglobin declined to 8.7 today, it was 11.3 during admission. We will continue to follow. Electrolytes normal yesterday, creatinine improved. Judy Harper MD [facility]
--- NOTE | 2017-06-08 16:01 | CON ---
HISTORY OF PRESENT ILLNESS: The patient is a 81-year-old male with history of dementia, CVA. The patient is bed-bound, presented to the emergency room after a fall. Psych consult was called for evaluation of medication. The patient was on Seroquel 12.5 mg at the nighttime. The patient was found to have QTC prolongation more than 500 and that is why a psych consultation was initiated. This senior copywriter has called to Dr. Newman yesterday, explained the plan to discontinue Seroquel for now and implement Remeron at the nighttime for insomnia and reviewed EKG. The patient was seen today. The patient presented to be alert, but disoriented in time and place. The patient knows that he lives in [place]. There is no meaningful conversation possible. The patient asked this senior copywriter to if this senior copywriter has a car. When this senior copywriter asked why he is asking so, the patient said "take me with you." Besides that the patient does not have agitation, no aggression. Yesterday, the patient refuse to take Remeron at the nighttime, but based on presentation, the patient does not have any discomfort or restless behavior. This senior copywriter checked the previous history, the patient has history of being seen by psychiatrist before, most likely the patient has history of agitated and delirium stage. This senior copywriter reviewed previous EKGs. Most recent normal EKG was in 04/2017 and it was on 134. The patient started to have QTC prolongation in May. This senior copywriter does not feel that Seroquel could cause QTC prolongation at present moment, but second generation of antipsychotic medication could give increased stroke for demented patient that is why this senior copywriter will put this medication on hold. PHYSICAL EXAMINATION: VITAL SIGNS: Reviewed. Temperature 98, pulse of 97, blood pressure 167/113, respirations 20 and oxygen saturation 98. MEDICATIONS: Reviewed. Remeron 7.5 mg at the nighttime for insomnia as well as for possible depressed mood. LABORATORY DATA: Reviewed. MENTAL STATUS EXAMINATION: There is no option to have meaningful conversation. The patient asking inappropriate questions. For example, if you have a car take me with you. The patient denied thoughts of harming himself or others, but this senior copywriter is not sure about the comprehension. Based on presentation, the patient is not in acute distress. IMPRESSION: The patient has history of Alzheimer's dementia, history of multiple medical issues, history of confusion and delirium. At present moment, the patient has acute kidney injury, status post fall, hypertension, diabetes, prolonged QTC of 551, possible urinary tract infection, macular degeneration. PLAN: This senior copywriter hold Seroquel as of now and Remeron was started at the nighttime. Continue current management. Please repeat EKG to make sure that EKG does not show QTC prolongation. Consider to have cardiology consult. Should they have any questions, give me a call back. We will follow up and advise accordingly. Thank you very much for letting me to participate in the care of your patient. Mela Colbert MD
[2017-06-09] MEDS: Pantoprazole 40 mg EC Tab PO SCH (05:35)
[2017-06-09] MEDS: Sodium Chloride 0.9% 1,000 ML IV SCH (05:35)
[2017-06-09 08:52] VITALS: RESP 20
--- NOTE | 2017-06-09 10:41 | CP.PCM.CON ---
History of Present Illness - History of Present Illness History of Present Illness: Palliative consult requested by Dr Andrew Newman Reason Goals of care/advance care planning 81 year old male with history of dementia,CVA who fell from his bed at home. Xrays of chest, hip, pelvis showed no acute findings. 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 Labs : leukocytosis, UTI. PMHx: dementia, delirium, UTI, TIA,DM, decubiti, bed bound,frequent falls, colitis Social History: No smoker, no alcohol or drug use. , lives with spouse Family History: Noncontributory. Review of Systems: As per HPI, limited review as patent is altered. Past Patient History - Infectious Disease Hx of Infectious Diseases: None - Tetanus Immunizations Tetanus Immunization: Unknown - Past Social History Smoking Status: Unknown If Ever Smoked - CARDIAC Hx Cardiac Disorders: Yes (CAD) Hx Hypertension: Yes - PULMONARY Hx Respiratory Disorders: No - NEUROLOGICAL HX Cerebrovascular Accident: Yes - HEENT Hx Macular Degeneration: Yes Other/Comment: egd for removal of foreign body 06/08/14 - RENAL Hx Chronic Kidney Disease: No - ENDOCRINE/METABOLIC Hx Diabetes Mellitus Type 2: Yes - HEMATOLOGICAL/ONCOLOGICAL Hx Blood Disorders: No - INTEGUMENTARY Other/Comment: reddened sacrum/ long curled thick toenails both feet/ unable to do proper skin assesment due to agitationrefusing to turn, has rash b/l groin lower abd and buttocks, left hand eccymotic, redness to left wrist, left 5th toe light purple in color - MUSCULOSKELETAL/RHEUMATOLOGICAL Hx Musculoskeletal Disorders: (b/l leg pain) Hx Falls: Yes (FREQUENT RECENT) Hx Unsteady Gait: Yes (w/ch can't walk/stand) - GASTROINTESTINAL Hx Gastrointestinal Disorders: No Other/Comment: egd for removal of foreigh body - GENITOURINARY/GYNECOLOGICAL Hx Incontinence: Yes Other/Comment: too weak to walk to bathroom/frequent falls - PSYCHIATRIC Hx Psychophysiologic Disorder: No Hx Depression: Yes Hx Emotional Abuse: No Hx Physical Abuse: No Hx Substance Use: No (Pt unable to comprehend) Other/Comment: up at night/pushes furniture/ jumps oob/ can become violent - SURGICAL HISTORY Hx Appendectomy: Yes Other/Comment: sebaceous cyst removal - ANESTHESIA Hx Anesthesia Reactions: Yes Hx Malignant Hyperthermia: No Meds Allergies/Adverse Reactions: Allergies Allergy/AdvReac Type Severity Reaction Status Date / Time No Known Allergies Allergy Verified 06/05/17 12:16 - Medications Medications: Current Medications Sodium Chloride (Sodium Chloride 0.9%) 1,000 mls @ 50 mls/hr IV .Q20H [facility] Last Admin: 06/09/17 05:35 Dose: 50 mls/hr Mirtazapine (Remeron) 7.5 mg PO HS [facility] Last Admin: 06/08/17 22:10 Dose: 7.5 mg Pantoprazole Sodium (Protonix Ec Tab) 40 mg PO 0600 [facility] Last Admin: 06/09/17 05:35 Dose: 40 mg Physical Exam - Constitutional Appears: No Acute Distress, Chronically Ill - Head Exam Head Exam: NORMAL INSPECTION - Eye Exam Eye Exam: Normal appearance, PERRL - ENT Exam ENT Exam: Mucous Membranes Moist, Normal Oropharynx - Neck Exam Neck exam: Positive for: Normal Inspection - Respiratory Exam Respiratory Exam: Clear to Auscultation Bilateral, NORMAL BREATHING PATTERN - Cardiovascular Exam Cardiovascular Exam: REGULAR RHYTHM, +S1, +S2 - GI/Abdominal Exam GI & Abdominal Exam: Normal Bowel Sounds, Soft - Extremities Exam Extremities exam: Positive for: pedal pulses present Additional comments: right heel ulcer - Back Exam Back exam: NORMAL INSPECTION - Skin Skin Exam: Dry, Warm Additional comments: stage 1 pressure would sacrum - Additional Findings Additional findings: Palliative performance scale rating 40 % Results - Vital Signs Recent Vital Signs: Last Vital Signs Temp 97.1 F L 06/09/17 08:00 Pulse 95 H 06/09/17 08:00 Resp 20 06/09/17 08:00 BP 141/95 H 06/09/17 08:00 Pulse Ox 94 L 06/09/17 08:00 - Labs Result Diagrams: 06/08/17 09:00 06/09/17 11:06 Labs: Laboratory Results - last 24 hr 06/08/17 06/08/17 06/08/17 11:23 16:00 21:16 POC Glucose (mg/dL) 118 H 103 146 H Assessment & Plan - Assessment and Plan (Free Text) Assessment: 81 year old male with history of dementia, CVA, pituitary adenoma admitted s/p fall with UTI, sepsis,delirium. Patient alert, confused.Appears comfortable. States he wants to "leave here." Patient and family known to me from previous admissions in which we discussed goals of care and advanced care planning. I spoke with patient's via phone today. She herself is not feeling well. She states her is difficult to handle and she is thinking of skilled nursing placement. She states that her daughters are busy with their own lives and can not give her additional help. She has been in discussion with Andrew Campoverde regarding transfer to [facility] and possible superintendent terminal placement options. I explained that she may want to consider advance care planning. Resuscitation status discussed. Benefits and burdens of CPR/intubation explained. does not want to make any decisions at this time. prefers to wait until her daughter returns form her honeymoon to have this conversation with her. Time spent in goals of care/advance care planning conversation,15 minutes Plan: Advance care planning Palliative support
[2017-06-09 11:18] LABS: CALCIUM 8.1 mg/dL (8.4-10.5); POTASSIUM 3.7 mmol/L (3.6-5.0)
[2017-06-09 15:58] VITALS: BP 139/85; PULSE 76; TEMP 97.3; O2SAT 98
--- NOTE | 2017-06-09 20:17 | PN ---
SUBJECTIVE: The patient was followed up today. There is no acute changes with the patient presentation. The patient was calm and cooperative during the interview, but there is no option to have meaningful conversation. The patient is saying random things. For example, "I was waiting for you. I want to go home" to all the questions he was asked. Psych consult was called for evaluation of medications, and the patient was on Seroquel small dose. QTC prolongation was more than 500. This quality analyst/technical writer held Seroquel and recommended Remeron. The patient tolerated medications well, slept last night. The patient was evaluated by palliative care and family was involved. PHYSICAL EXAMINATION: VITAL SIGNS: This quality analyst/technical writer reviewed vital signs. Vital signs seemed to be stable. Temperature 97.3, pulse is 76, blood pressure 139/85, respirations 20, oxygen saturation 98. MEDICATIONS: Reviewed. The patient will be on Remeron 7.5 mg at the nighttime, Protonix, and sodium chloride. LABORATORY DATA: Labs reviewed, most recent from yesterday. MENTAL STATUS EXAMINATION: This quality analyst/technical writer described above. There is no meaningful conversation possible at present moment. The patient saying random things, has difficulty to comprehend all the questions. The patient denied thoughts of dying, denied thoughts of killing himself, was not able to comprehend question about visual, auditory, or tactile hallucinations. Insight and judgment impaired. The patient has dementia and impulses are better controlled at the present moment. IMPRESSION: The patient has dementia. The patient has history of delirium and QTC prolongation. PLAN: This quality analyst/technical writer changed Seroquel which was discontinued, Remeron 7.5 mg was started. The patient seems to be at his baseline. The patient presented not to be in any imminent danger to self or other. Family wants to think about placement. support services manager of palliative care involved. This quality analyst/technical writer will sign off. Should they have any questions, they may call back. Thank you very much for letting me participate in the care of your patient. Mela Colbert MD
--- NOTE | 2017-06-10 23:45 | CP.PCM.DIS ---
Provider - Provider Date of Admission: 06/05/17 15:33 Attending physician: Jakob Newman MD Primary care physician: Jakob Newman MD Time Spent in preparation of Discharge (in minutes): 55 Hospital Course - Lab Results Lab Results: Most Recent Lab Values WBC 10.1 10^3/ul (4.5-11.0) 06/08/17 09:00 RBC 3.44 10^6/uL (3.5-6.1) L 06/08/17 09:00 Hgb 10.0 g/dL (14.0-18.0) L 06/08/17 09:00 Hct 30.7 % (42.0-52.0) L 06/08/17 09:00 MCV 89.2 fl (80.0-105.0) 06/08/17 09:00 MCH 29.1 pg (25.0-35.0) 06/08/17 09:00 MCHC 32.6 g/dl (31.0-37.0) 06/08/17 09:00 RDW 15.2 % (11.5-14.5) H 06/08/17 09:00 Plt Count 314 10^3/uL (120.0-450.0) 06/08/17 09:00 MPV 9.6 fl (7.0-11.0) 06/08/17 09:00 Gran % 68.8 % (50.0-68.0) H 06/08/17 09:00 Lymph % (Auto) 17.6 % (22.0-35.0) L 06/08/17 09:00 [place] % (Auto) 7.0 % (1.0-6.0) H 06/08/17 09:00 Eos % (Auto) 4.9 % (1.5-5.0) 06/08/17 09:00 Baso % (Auto) 1.7 % (0.0-3.0) 06/08/17 09:00 Gran # 6.92 (1.4-6.5) H 06/08/17 09:00 Lymph # 1.8 (1.2-3.4) 06/08/17 09:00 [place] # 0.7 (0.1-0.6) H 06/08/17 09:00 Eos # 0.5 (0.0-0.7) 06/08/17 09:00 Baso # 0.17 K/mm3 (0.0-2.0) 06/08/17 09:00 PT 11.8 Seconds (9.9-11.8) 06/05/17 14:50 INR 1.09 (0.93-1.08) H 06/05/17 14:50 APTT 29.7 Seconds (23.7-30.8) 06/05/17 14:50 pO2 39 mm/Hg (30-55) 06/05/17 17:05 VBG pH 7.33 (7.32-7.43) 06/05/17 17:05 VBG pCO2 54.0 (40-60) 06/05/17 17:05 VBG HCO3 28.5 mmol/l (21-28) H 06/05/17 17:05 VBG Total CO2 30.2 mmol.L (22-28) H 06/05/17 17:05 VBG O2 Sat (Calc) 78.6 % (40-65) H 06/05/17 17:05 VBG Base Excess 1.5 mmol/L (0.0-2.0) 06/05/17 17:05 VBG Potassium 4.3 mmol/L (3.6-5.2) 06/05/17 17:05 Sodium 138.0 mmol/L (132-148) 06/05/17 17:05 Chloride 107.0 mmol/L (98-107) 06/05/17 17:05 Glucose 103 mg/dl (75-110) 06/05/17 17:05 Lactate 1.4 mmol/L (0.7-2.1) 06/05/17 17:05 FiO2 21.0 % 06/05/17 17:05 Sodium 138 mmol/L (132-148) 06/09/17 11:06 Potassium 3.7 mmol/L (3.6-5.0) 06/09/17 11:06 Chloride 105 mmol/L (98-107) 06/09/17 11:06 Carbon Dioxide 24 mmol/L (21-33) 06/09/17 11:06 Anion Gap 13 (10-20) 06/09/17 11:06 BUN 28 mg/dL (7-21) H 06/09/17 11:06 Creatinine 2.3 mg/dL (0.5-1.4) H 06/09/17 11:06 Est GFR ( Amer) 33 06/09/17 11:06 Est GFR (Non-Af Amer) 28 06/09/17 11:06 POC Glucose (mg/dL) 138 mg/dL (65-110) H 06/09/17 15:59 Random Glucose 94 mg/dL (70-110) 06/09/17 11:06 Calcium 8.1 mg/dL (8.4-10.5) L 06/09/17 11:06 Phosphorus 5.1 mg/dL (2.5-4.5) H 06/06/17 06:54 Magnesium 1.8 mg/dL (1.7-2.2) 06/06/17 06:54 Total Bilirubin 0.3 mg/dL (0.2-1.3) 06/07/17 06:20 AST 20 U/L (17-59) 06/07/17 06:20 ALT 18 U/L (7-56) 06/07/17 06:20 Alkaline Phosphatase 53 U/L (38-126) 06/07/17 06:20 Total Protein 5.6 g/dL (5.8-8.3) L 06/07/17 06:20 Albumin 2.5 g/dL (3.0-4.8) L 06/07/17 06:20 Globulin 3.1 gm/dL 06/07/17 06:20 Albumin/Globulin Ratio 0.8 (1.1-1.8) L 06/07/17 06:20 Venous Blood Potassium 4.3 mmol/L (3.6-5.2) 06/05/17 17:05 Urine Color Yellow (YELLOW) 06/05/17 14:45 Urine Appearance Sl cloudy (CLEAR) 06/05/17 14:45 Urine pH 6.5 (4.7-8.0) 06/05/17 14:45 Ur Specific [place] 1.020 (1.005-1.035) 06/05/17 14:45 Urine Protein 100 mg/dL (<30 mg/dL) H 06/05/17 14:45 Urine Glucose (UA) Negative mg/dL (NEGATIVE) 06/05/17 14:45 Urine Ketones Negative mg/dL (NEGATIVE) 06/05/17 14:45 Urine Blood Moderate (NEGATIVE) H 06/05/17 14:45 Urine Nitrate Negative (NEGATIVE) 06/05/17 14:45 Urine Bilirubin Negative (NEGATIVE) 06/05/17 14:45 Urine Urobilinogen 0.2 E.U./dL (<1 E.U./dL) 06/05/17 14:45 Ur Leukocyte Esterase Large Addie/uL (NEGATIVE) H 06/05/17 14:45 Urine RBC 1 - 3 /hpf (0-2) 06/05/17 14:45 Urine WBC Tntc /hpf (0-6) 06/05/17 14:45 Urine Bacteria Few (NEG) 06/05/17 14:45 - Hospital Course Hospital Course: History of fall at home, acute kidney injury, hypertension, diabetes mellitus type, macular degeneration, history of mesenteric ischemia, anemia, leukocytosis. Pitutary adenoma The patient is a 81-year-old male with history of CVA, dementia. He is bed-bound. He fell in the house, brought to the ED by . He has a history of chronic kidney disease, Alzheimer's, macular degeneration, history of mesenteric ischemia, status post angioplasty. Psych was consulted. seroquil discontinued. remeron started. for agitation. ALLERGIES: NO KNOWN DRUG ALLERGIES. MEDICATIONS: Reviewed. PAST MEDICAL HISTORY: Hypertension, diabetes mellitus type 2, macular degeneration, urinary incontinence, history of mesenteric ischemia. PAST SURGICAL HISTORY: Appendectomy, mesenteric artery angioplasty. FAMILY HISTORY: Noncontributory. SOCIAL HISTORY: Lives at home with . PHYSICAL EXAMINATION GENERAL: Comfortable in bed, in no acute distress. VITAL SIGNS: reviewed. HEENT: Normal. Pallor positive. NECK: Supple. No lymphadenopathy. CHEST: Air entry present and equal bilaterally. No added sounds. CARDIOVASCULAR: S1 and S2 normal. No murmur. No gallop. ABDOMEN: Soft and nontender. No hepatosplenomegaly. EXTREMITIES: No edema. NEUROLOGIC: Alert and oriented x3. No focal sensory or motor deficits. SKIN: No petechiae. No rash. LABORATORY DATA: White count 11.9, hemoglobin 8.7, hematocrit 26.4, and platelet count 278. Sodium 138, potassium 3.9, creatinine 2.6. Urine culture, no growth; blood culture, no growth. Discharge home. condition stable. MEDICATIONS: Remeron 7.5 mg h.s., Protonix 40 mg daily, continue home meds. Time spent in preparing discharge and coordinating care -60 minutes. Judy Harper MD - Date & Time of H&P Date of H&P: 06/09/17 Time of H&P: 11:00 Discharge Exam - Head Exam Head Exam: NORMAL INSPECTION Discharge Plan - Discharge Medications Prescriptions: RX: Mirtazapine [Remeron] 7.5 mg PO HS #30 tab RX: Pantoprazole [Protonix EC Tab] 40 mg PO 0600 #30 ect - Follow Up Plan Condition: FAIR Disposition: HOME/ ROUTINE Instructions: Dehydration (DC), Urinary Tract Infection in Men (DC) Additional Instructions: Spoke to in regard to follow up and medications. Prescriptions sent with paperwork to be given to . Continue pureed [place] thick liquids diet.
== END 2017-06-09 20:45 | disposition home or self-care (01) | DRG 684 ==
LOC: ED 12:03 → ERH 15:33 → 5RSO 18:50
PROVIDERS: ADMIT Internal Medicine Nephrology; ATTEND Internal Medicine Nephrology
DX: N17.9 Acute kidney failure, unspecified (principal); E86.0 Dehydration; L89.151 Pressure ulcer of sacral region, stage 1; L89.619 Pressure ulcer of right heel, unspecified stage; G30.9 Alzheimer's disease, unspecified; F02.80 Dementia in other diseases classified elsewhere, unspecified severity, without behavioral disturbance, psychotic disturbance, mood disturbance, and anxiety; I12.9 Hypertensive chronic kidney disease with stage 1 through stage 4 chronic kidney disease, or unspecified chronic kidney disease; E11.22 Type 2 diabetes mellitus with diabetic chronic kidney disease; N18.9 Chronic kidney disease, unspecified; D64.9 Anemia, unspecified; H35.30 Unspecified macular degeneration; D35.2 Benign neoplasm of pituitary gland; K80.20 Calculus of gallbladder without cholecystitis without obstruction; I45.81 Long QT syndrome; Z74.01 Bed confinement status; Z86.73 Personal history of transient ischemic attack (TIA), and cerebral infarction without residual deficits

== ENCOUNTER 2017-06-16 10:20 | Inpatient (IN) | payer MEDICARE, OTHER ==
--- NOTE | 2017-06-16 10:53 | ED PDOC ---
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 The patient's told EMS that the patient rolled off of the bed. The patient is a limited historian. He states that he rolled off of the bed. The patient denies fevers, chills, headache, dizziness, chest pain, shortness of breath, dyspnea on exertion, cough, abdominal pain, nausea, vomiting, diarrhea, back pain, neck pain, urinary/bowel changes, or any other complaint. Time/Duration: Prior to Arrival Symptom Onset: Sudden Symptom Course: Unchanged Activities at Onset: Rest, Light Context: Home Past Medical History - Infectious Disease Hx of Infectious Diseases: None - Tetanus Immunization Tetanus Immunization: Unknown - Cardiac Hx Cardiac Disorders: Yes (CAD) Hx Hypertension: Yes - Pulmonary Hx Respiratory Disorders: No - Neurological Hx Neurological Disorder: Yes HX Cerebrovascular Accident: Yes - HEENT Hx HEENT Disorder: Yes Hx Macular Degeneration: Yes Other/Comment: egd for removal of foreign body 06/08/14 - Renal Hx Renal Disorder: No - Endocrine/Metabolic Hx Endocrine Disorders: Yes Hx Diabetes Mellitus Type 2: Yes - Hematological/Oncological Hx Blood Disorders: No - Integumentary Hx Dermatological Disorder: No Hx Basal Cell Carcinoma: No - Musculoskeletal/Rheumatological Hx Musculoskeletal Disorders: Yes (b/l leg pain) Hx Falls: Yes (FREQUENT RECENT) Hx Unsteady Gait: Yes (w/ch can't walk/stand) - Gastrointestinal Hx Gastrointestinal Disorders: No - Genitourinary/Gynecological Hx Genitourinary Disorders: Yes Hx Incontinence: Yes - Psychiatric Hx Psychophysiologic Disorder: Yes Hx Depression: Yes Hx Emotional Abuse: No Hx Physical Abuse: No Hx Substance Use: No (pt denies) - Surgical History Hx Appendectomy: Yes Other/Comment: sebaceous cyst removal - Anesthesia Hx Anesthesia Reactions: Yes Hx Malignant Hyperthermia: No - Suicidal Assessment Feels Threatened In Home Enviroment: No Family/Social History - Physician Review Nursing Documentation Reviewed: Yes Family/Social History: No Known Family HX Smoking Status: Unknown If Ever Smoked Hx Alcohol Use: No (pt denies) Hx Substance Use: No (pt denies) Hx Substance Use Treatment: No Allergies/Home Meds Allergies/Adverse Reactions: Allergies No Known Allergies Allergy (Verified 06/16/17 10:30) Per EMS and which is at home. Pt is confused due to dementia Hx Home Medications: Home Meds Medication Instructions Recorded Confirmed Unobtainable 06/16/17 06/16/17 Review of Systems - Review of Systems Systems not reviewed;Unavailable: Other (Patient is a limited historian. Alert and Oriented x2.) Constitutional: absent: Fevers, Night Sweats ENT: absent: Sore Throat Respiratory: absent: SOB, Cough Cardiovascular: absent: Chest Pain, BENEDICT Gastrointestinal: absent: Abdominal Pain, Diarrhea, Nausea, Vomiting Genitourinary Male: absent: Urinary Output Changes Musculoskeletal: absent: Back Pain, Neck Pain Neurological: absent: Headache, Dizziness Physical Exam Vital Signs Reviewed: Yes Vital Signs Temp Pulse Resp BP Pulse Ox 06/16/17 14:10 100 H 18 130/80 98 06/16/17 12:42 98.9 F 06/16/17 11:52 107 H 18 132/88 99 06/16/17 10:20 97.9 F 111 H 18 143/95 H 99 Temperature: Afebrile Pulse: Tachycardic Respiratory Rate: Normal Appearance: Positive for: Well-Appearing, Non-Toxic, Comfortable Pain Distress: None Mental Status: Positive for: Confused, other (Alert and Oriented x2) - Systems Exam Head: Present: Atraumatic, Normocephalic Pupils: Present: PERRL Extroacular Muscles: Present: EOMI Conjunctiva: Present: Normal Mouth: Present: Moist Mucous Membranes Neck: Present: Normal Range of Motion. No: MIDLINE TENDERNESS Respiratory/Chest: Present: Clear to Auscultation, Good Air Exchange. No: Respiratory Distress, Accessory Muscle Use Cardiovascular: Present: Regular Rate and Rhythm, Normal S1, S2. No: Murmurs Abdomen: Present: Normal Bowel Sounds. No: Tenderness, Distention, Peritoneal Signs Back: Present: Normal Inspection. No: Midline Tenderness Upper Extremity: Present: Normal Inspection. No: Cyanosis, Edema Lower Extremity: Present: Normal Inspection. No: Edema Neurological: Present: GCS=15, CN II-XII Intact, Speech Normal Skin: Present: Warm, Dry, Normal Color. No: Rashes Psychiatric: Present: Alert, Oriented x 3, Normal Insight, Normal Concentration Medical Decision Making ED Course and Treatment: 06/16/17 10:55 Impression: A 81 year old male brought in via EMS for further evaluation after a fall. The patient's reported for EMS that the patient rolled off of his bed. Patient appears very dehydrated. r/o Sepsis Fall r/o fx Plan: -- Head CT -- Chest/ Pelvic X-ray -- Labs -- Reassess and disposition Prior Visits: Notes and results from previous visits were reviewed. Patient was last seen in the emergency department on 06/05/2017. The patient was brought in via EMS for further evaluation after falling off of his bed. The patient was hospitalized. Progress Notes: 06/16/17 11:15: Code sepsis called due to suspected infection, elevated WBC and elevated LA. Patient will be hydrated. Zosyn IV ordered. Pending UA. CXR negative. Pelvis Xray with no fx. 06/16/17 12:45 Sinus tachy at 115bpm with T waves inversion in the lateral leads, no change from previous except now tachy CHEST X-RAY Dictator : Ira Guillen MD Report Date : 06/16/2017 12:25:29 IMPRESSION: No acute findings. COPD. CT HEAD WITHOUT CONTRAST. Dictator : Lokesh Walker Report Date : 06/16/2017 11:58:31 IMPRESSION: No CT evidence of acute intracranial hemorrhage or acute territorial infarction. No significant interval change since the previous exam noted. Re- demonstration of old infarction at the right cerebellum and small lacunar old infarction at the right trung. Re- demonstration of moderate atrophy and moderate chronic microvascular ischemic disease. Again noted is pituitary macro adenoma. 06/16/17 13:12: Discussed case with Dr. Sanchez. Will admit patient for sepsis dehydration . Radiographs of the pelvis Dictator : Misha Gutierrez MD Report Date : 06/16/2017 13:46:19 IMPRESSION: No acute findings related to/accounting for the clinical presentation. Additional benign and/or incidental findings described above. 06/16/17 14:00: Patient has not been able to urinate. Will order more fluids. 06/16/17 15:00 Patient was finally able to urinate 600 cc and the urine was purulent as per THO Sánchez. - Critical Care Critical Care Minutes: 30 minutes - Lab Interpretations Lab Results: 06/16/17 11:15 06/16/17 11:15 Lab Results 06/16/17 13:05: PT 12.0 H, INR 1.11 H, APTT 29.3 06/16/17 11:15: Phosphorus 5.2 H, Magnesium 2.0 06/16/17 11:15: Sodium 142, Chloride 105, Potassium 4.0, Carbon Dioxide 20 L, Anion Gap 21 H, BUN 33 H, Creatinine 3.4 H, Est GFR ( Amer) 21, Est GFR ( Non-Af Amer) 18, Random Glucose 164 H, Calcium 8.9, Magnesium 2.0 06/16/17 11:15: pO2 49, VBG pH 7.22 L, VBG pCO2 51.0, VBG HCO3 20.9 L, VBG Total CO2 22.5, VBG O2 Sat (Calc) 82.5 H, VBG Base Excess -7.1 L, VBG Potassium 4.1, Sodium 140.0, Chloride 106.0, Glucose 170 H, Lactate 6.9 H*, FiO2 21.0, Venous Blood Potassium 4.1 06/16/17 11:15: WBC 22.2 H D, RBC 3.56, Hgb 10.6 L, Hct 32.2 L, MCV 90.4, MCH 29.8, MCHC 32.9, RDW 15.3 H, Plt Count 384, MPV 10.1, Gran % 87.6 H, Lymph % ( Auto) 6.5 L, [place] % (Auto) 5.1, Eos % (Auto) 0.4 L, Baso % (Auto) 0.4, Gran # 19.42 H, Lymph # 1.4, [place] # 1.1 H, Eos # 0.1, Baso # 0.08 I have reviewed the lab results: Yes Interpretation: Abnormal lab values - RAD Interpretation Radiology Orders: 06/16/17 10:47 HEAD W/O CONTRAST [CT] Stat CXR [CHEST TWO VIEWS (PA/LAT)] [RAD] Stat PELVIS ONE VIEW [RAD] Stat - Medication Orders Current Medication Orders: Discontinued Medications Sodium Chloride 1,970 ml/ IV (SUPPLIES) 1,970 mls @ 3,946.26 mls/hr IV ONCE ONE PRN Reason: 60 ML/KG/HR Stop: 06/16/17 11:52 Last Admin: 06/16/17 12:10 Dose: 3,946.26 mls/hr eMAR Start Stop Document 06/16/17 12:10 SF (Rec: 06/16/17 12:25 SF [email or web address]) Intravenous Solution Start Date 06/16/17 Start Time 12:10 End Date 06/16/17 End time 12:40 Total Infusion Time 30 Piperacillin Sod/Tazobactam Sod (Zosyn 4.5 Gm In Ns 100ml) 4.5 gm in 100 mls @ 200 mls/hr IVPB STAT STA PRN Reason: Protocol Stop: 06/16/17 13:36 Last Admin: 06/16/17 13:31 Dose: 200 mls/hr eMAR Start Stop Document 06/16/17 13:31 SF (Rec: 06/16/17 13:32 SF [place] [id number]) Intravenous Solution Start Date 06/16/17 Start Time 13:31 End Date 06/16/17 End time 14:01 Total Infusion Time 30 Sodium Chloride (Sodium Chloride 0.9%) 1,000 mls @ 999 mls/hr IV .Q1H1M STA Stop: 06/16/17 15:01 Last Admin: 06/16/17 14:02 Dose: 999 mls/hr eMAR Start Stop Document 06/16/17 14:02 SF (Rec: 06/16/17 14:40 SF [email or web address]) Intravenous Solution Start Date 06/16/17 Start Time 14:02 End Date 06/16/17 End time 15:03 Total Infusion Time 61 Sodium Chloride (Sodium Chloride 0.9%) 1,000 mls @ 999 mls/hr IV .Q1H1M STA Stop: 06/16/17 15:01 Last Admin: 06/16/17 14:01 Dose: 999 mls/hr eMAR Start Stop Document 06/16/17 14:01 SF (Rec: 06/16/17 14:41 SF [email or web address]) Intravenous Solution Start Date 06/16/17 Start Time 14:01 End Date 06/16/17 End time 15:02 Total Infusion Time 61 - Scribe Statement The provider has reviewed the documentation as recorded by the Justo Hanna Provider Scribe Attestation: All medical record entries made by the Scribe were at my direction and personally dictated by me. I have reviewed the chart and agree that the record accurately reflects my personal performance of the history, physical exam, medical decision making, and the department course for this patient. I have also personally directed, reviewed, and agree with the discharge instructions and disposition. Disposition/Present on Arrival - Present on Arrival Any Indicators Present on Arrival: No History of DVT/PE: No History of Uncontrolled Diabetes: No Urinary Catheter: No History of Decub. Ulcer: No History Surgical Site Infection Following: None - Disposition Have Diagnosis and Disposition been Completed?: Yes Diagnosis: Dehydration, Sepsis Disposition: HOSPITALIZED Disposition Time: 12:49 Patient Plan: Admission Patient Problems: Current Active Problems Problem Status Onset Dehydration Acute Sepsis Acute Condition: GUARDED
[2017-06-16 11:26] LABS: VENOUS BLOOD GAS BASE EXCESS -7.1 mmol/L (0.0-2.0); VENOUS BLOOD PH 7.22 (7.32-7.43)
[2017-06-16 11:37] LABS: CALCIUM 8.9 mg/dL (8.4-10.5)
[2017-06-16 11:38] LABS: BASO # 0.08 K/mm3 (0.0-2.0); BASO % 0.4 % (0.0-3.0); EOS # 0.1 (0.0-0.7); EOS % 0.4 % (1.5-5.0); GRAN # 19.42 (1.4-6.5); GRAN % 87.6 % (50.0-68.0); HEMATOCRIT 32.2 % (42.0-52.0); LYMPH # 1.4 (1.2-3.4); LYMPH % 6.5 % (22.0-35.0); MEAN CELL VOLUME 90.4 fl (80.0-105.0); MEAN CORPUSCULAR HEMOGLOBIN 29.8 pg (25.0-35.0); MEAN CORPUSCULAR HGB CONC 32.9 g/dl (31.0-37.0); MEAN PLATELET VOLUME 10.1 fl (7.0-11.0); MONO # 1.1 (0.1-0.6); MONO % 5.1 % (1.0-6.0); RED CELL DISTRIBUTION WIDTH 15.3 % (11.5-14.5); WHITE BLOOD COUNT 22.2 10^3/ul (4.5-11.0)
--- NOTE | 2017-06-16 12:00 | CT ---
PROCEDURE: CT HEAD WITHOUT CONTRAST. HISTORY: r/o cva COMPARISON: Comparison is made to 06/05/2017 TECHNIQUE: Axial computed tomography images were obtained through the head/brain without intravenous contrast. Radiation dose: Total exam DLP = 814.48 mGy-cm. This CT exam was performed using one or more of the following dose reduction techniques: Automated exposure control, adjustment of the mA and/or kV according to patient size, and/or use of iterative reconstruction technique. FINDINGS: HEMORRHAGE: No intracranial hemorrhage. 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 Again noted is moderate atrophy and moderate chronic microvascular ischemic disease. There is moderate-size encephalomalacia at the right cerebellum suggestive of old infarction. There is a small encephalomalacia seen at the right trung also suggestive of old infarction. VENTRICLES: Unremarkable. No hydrocephalus. CALVARIUM: Unremarkable. PARANASAL SINUSES: Unremarkable as visualized. No significant inflammatory changes. MASTOID AIR CELLS: Unremarkable as visualized. No inflammatory changes. OTHER FINDINGS: None. IMPRESSION: No CT evidence of acute intracranial hemorrhage or acute territorial infarction. No significant interval change since the previous exam noted. Re- demonstration of old infarction at the right cerebellum and small lacunar old infarction at the right trung. Re- demonstration of moderate atrophy and moderate chronic microvascular ischemic disease. Again noted is pituitary macro adenoma.
--- NOTE | 2017-06-16 12:27 | RAD ---
HISTORY: fall r/o fx COMPARISON: 06/05/2017. TECHNIQUE: Chest PA and lateral FINDINGS: LUNGS: The lungs are hyperinflated and there is peribronchial thickening with chronic changes in both lungs. There is linear atelectasis in the left lung base. PLEURA: No significant pleural effusion identified. No pneumothorax apparent. CARDIOVASCULAR: Normal. OSSEOUS STRUCTURES: There is diffuse bone demineralization. There is an old superior endplate compression fracture in the T12 vertebral body. VISUALIZED UPPER ABDOMEN: Normal. OTHER FINDINGS: None. IMPRESSION: No acute findings. COPD.
[2017-06-16] MEDS ORDERED: Piperacill/Tazo 4.5gm in NS 4.5 GM/100 ML BAG IVPB STA (13:07)
[2017-06-16 13:34] LABS: PHOSPHOROUS 5.2 mg/dL (2.5-4.5)
[2017-06-16 13:44] LABS: INR 1.11 (0.93-1.08); PARTIAL THROMBOPLASTIN TIME 29.3 Seconds (23.7-30.8)
--- NOTE | 2017-06-16 13:48 | RAD ---
PROCEDURE: Radiographs of the pelvis. HISTORY: Posttraumatic pain COMPARISON: None. FINDINGS: BONES: Pelvic Bones: No evidence of fracture. Hips: Mild and symmetrical degenerative changes. JOINTS: Sacroiliac Joints: Unremarkable. Pubic Symphysis: Unremarkable. OTHER FINDINGS: None. IMPRESSION: No acute findings related to/accounting for the clinical presentation. Additional benign and/or incidental findings described above.
[2017-06-16] MEDS ORDERED: Sodium Chloride 0.9% 1,000 ML IV STA ×2 (14:01)
[2017-06-16 14:29] LABS: VENOUS BLOOD GAS BASE EXCESS -5.9 mmol/L (0.0-2.0); VENOUS BLOOD PH 7.24 (7.32-7.43)
[2017-06-16 15:45] LABS: URINE BILIRUBIN NEGATIVE (NEGATIVE); URINE BLOOD MODERATE (NEGATIVE); URINE GLUCOSE (UA) NEGATIVE (NEGATIVE); URINE KETONE NEGATIVE (NEGATIVE); URINE LEUKOCYTE ESTERASE LARGE Leu/uL (NEGATIVE); URINE PROTEIN 100 mg/dL (<30 mg/dL); URINE UROBILINOGEN 0.2 E.U./dL (<1 E.U./dL)
[2017-06-16 15:46] LABS: URINE APPEARANCE TURBID (CLEAR); URINE COLOR LIGHT YELLOW (YELLOW)
[2017-06-16 15:51] LABS: URINE WBC TNTC /hpf (0-6)
[2017-06-16 15:52] LABS: URINE BACTERIA MANY (NEG); URINE EPITHELIAL CELLS 0 - 2 /hpf (0-5)
[2017-06-16 17:02] VITALS: BMI 22.7
[2017-06-16] MEDS ORDERED: Pneumococcal 23-Valent Vaccine IM ONE (17:02)
--- NOTE | 2017-06-16 17:58 | PCM.SEPTIC ---
<Norma Macdonald - Last Filed: 06/16/17 17:54> Sepsis Progress Note - Reassessment Type Date of Evaluation: 06/16/17 Time of Evaluation: 17:50 Reassessment Type: Non-invasive reassessment - Non Invasive Reassessment Were the most recent vital sign reviewed: Yes Vital Sign (Latest): Temp Pulse Resp BP Pulse Ox 98.9 F 98 H 16 128/79 96 06/16/17 16:40 06/16/17 16:40 06/16/17 16:40 06/16/17 16:40 06/16/17 15:33 Cardiovascular: Yes: Regular Rate, Rhythm. No: Edema, Bradycardia, Tachycardia Respiratory: Yes: Normal Breath Sounds. No: Crackles, Rales, Rhonchi, Stridor, Wheezing, Respiratory Distress Capillary Refill: Normal (Less than 2 sec) Pulses: Normal Radial, Normal Dorsalis Pedis, Normal Posterior Tibialis Skin: Normal Color - Invasive Reassessment (complete 2 of 4) Was a Central Venous Pressure Measurement obtained within 6 Hours after the presentation of septic shock: No Was a central venous oxygen measurement obtained within 6 hours after the presentation of septic shock: No Was a bedside cardiovascular ultrasound performed within 6 hours after the presentation of septic shock: No Was a passive leg raise performed or was a fluid challenge performed within 6 hrs of the initial fluid bolus: No Fluid Challenge performed: Yes <Jakob Newman - Last Filed: 06/17/17 06:33> Sepsis Progress Note - Non Invasive Reassessment Vital Sign (Latest): Temp Pulse Resp BP Pulse Ox 98.9 F 98 H 16 128/79 96 06/16/17 16:40 06/16/17 16:40 06/16/17 16:40 06/16/17 16:40 06/16/17 15:33
[2017-06-16] MEDS ORDERED: Vancomycin 1gm in NS 250ml 1 GM/250 ML BAG IVPB STA (22:03)
[2017-06-17] MEDS: Piperacillin/Tazobact 2.25gm 2.25 GM/100 ML BAG IVPB SCH ×5 (05:11→23:57)
[2017-06-17] MEDS ORDERED: Vancomycin 1gm in NS 250ml 1 GM/250 ML BAG IVPB STA (05:13)
[2017-06-17 07:49] LABS: MEAN CELL VOLUME 89.6 fl (80.0-105.0); MEAN CORPUSCULAR HEMOGLOBIN 29.7 pg (25.0-35.0); MEAN CORPUSCULAR HGB CONC 33.2 g/dl (31.0-37.0); MEAN PLATELET VOLUME 10.5 fl (7.0-11.0); RED CELL DISTRIBUTION WIDTH 15.3 % (11.5-14.5)
[2017-06-17 08:26] LABS: ALB/GLOB RATIO 0.9 (1.1-1.8); BILIRUBIN,TOTAL 0.4 mg/dL (0.2-1.3); POTASSIUM 4.2 mmol/L (3.6-5.0); TOTAL PROTEIN 5.2 g/dL (5.8-8.3)
--- NOTE | 2017-06-17 08:33 | CARD ---
APPROVED REPORT EKG Measurement Heart [id number] <Conclusion> Sinus rhythm with 1st degree AVB LVH NSSTW changes C/W ECG 06/05/17: the rate is faster
[2017-06-17] MEDS: Pantoprazole 40 mg EC Tab PO SCH (13:38)
--- NOTE | 2017-06-17 20:30 | CON ---
DATE: 06/17/2017 The is seen earlier this morning in 561, bed 1. CHIEF COMPLAINT: Weakness from several days. HISTORY OF PRESENT ILLNESS: This is a 81-year-old male with past medical history significant for diabetes mellitus, hypertension, macular degeration, renal disease, cerebrovascular accident, urinary retention, history of appendicectomy, who is admitted through the emergency room, was seen by Dr. Roberto Mejia. The patient was admitted with chief complaint of trauma, and Dr. Mejia writes that the patient has mesenteric ischemic by history, had a superior mesenteric artery angioplasty in the past, presented to the emergency room. He had told the EMS that he had rolled off the bed. There have been no fevers reported by the emergency room. No chills. No abdominal pain or diarrhea or constipation. The patient was found to have a white count of 22,000 in the emergency room. Infectious disease consultation requested. REVIEW OF SYSTEMS: Reveals the patient has not had any fevers and had no chills, and no abdominal pain. No diarrhea or constipation. Mild shortness of breath. PAST MEDICAL HISTORY: Significant for diabetes, hypertension, macular degeneration, renal disease, cerebrovascular accident, urinary retention, depression and dementia. PAST SURGICAL HISTORY: History is significant for appendectomy. ALLERGIES: THE PATIENT HAS NO KNOWN ALLERGIES. MEDICATIONS AT HOME: Include the patient to be on Seroquel, Protonix, Remeron, Lipitor. PHYSICAL EXAMINATION VITAL SIGNS: The patient's temperature of 98, heart rate of 111, respiratory rate of 18, blood pressure 128/79. HEENT: Unremarkable. NECK: Supple. LUNGS: Decreased breath sounds. HEART: Normal S1 and S2. ABDOMEN: Soft and nontender. No organomegaly, no rebound, no guarding, no masses. LABORATORY EXAMINATION: Reveals a white count of 22,000, hemoglobin of 10, platelets of 384. Coagulation is noted. Chemistries reveal the BUN of 33, creatinine of 3.4, glucose 164, procalcitonin is 0.54. Urinalysis reveals too numerous to count wbc's many bacteria. Chest x-ray reveals the patient to have hyperinflated lungs, some peribronchial thickening, no acute findings, chronic obstructive lung disease. MEDICATIONS: Review of medications reveals the patient's medications are noted. ASSESSMENT AND PLAN: A 81-year-old male with diabetes, hypertension, macular degeneration, renal disease, cerebrovascular accident, urinary retention, dementia, now with sepsis with urine as the source. We will treat with Zosyn pending urine culture. The blood cultures are reported no growth at 24 hours. We will make further recommendations upon availability of initial culture results and we will follow closely with you. In a patient actually with severe sepsis due to acute kidney injury on top of chronic kidney injury, the patient admitted with a creatinine of 3.4 before. Prior to that in earlier March, the patient's creatinine was 0.9, and we will make further recommendations upon availability of initial results. Moe Zamora MD
[2017-06-18] MEDS: Piperacillin/Tazobact 2.25gm 2.25 GM/100 ML BAG IVPB SCH ×4 (06:03→23:21)
--- NOTE | 2017-06-18 10:13 | PN ---
DATE: 06/18/2017 SUBJECTIVE: The patient is in bed, in no acute distress, nontoxic. PHYSICAL EXAMINATION: VITAL SIGNS: Temperature is 98, Blood pressure is 130/80, and respiratory rate of 18. HEENT: Unremarkable. NECK: Supple. LUNGS: Decreased breath sounds. HEART: Normal S1 and S2. ABDOMEN: Soft and nontender. LABORATORY DATA: Reveals a white count 01231, hemoglobin of 8, and platelets of 277. Chemistry reveals a BUN of 32 and creatinine of 2.9. Procalcitonin is 0.54. Urinalysis is noted. Microbiology reveals the blood cultures have no growth. ASSESSMENT AND PLAN: This is a 81-year-old male with past medical history significant for diabetes, hypertension, macular degeneration, renal disease, cerebrovascular accident, and urinary retention, who was admitted to the emergency room with sepsis, his urine as a source, currently awaiting for urine culture. Thus far as the blood cultures are negative and the patient is currently on Zosyn, pending mancera culture results, and initial workup results. [place] [address] [place] [address]. We will follow with you. Moe Zamora MD
[2017-06-18] MEDS: Pantoprazole 40 mg EC Tab PO SCH (10:44)
[2017-06-18 13:32] LABS: BASO # 0.13 K/mm3 (0.0-2.0); BASO % 1.5 % (0.0-3.0); EOS # 0.8 (0.0-0.7); EOS % 8.8 % (1.5-5.0); GRAN # 5.03 (1.4-6.5); GRAN % 58.8 % (50.0-68.0); HEMATOCRIT 24.7 % (42.0-52.0); LYMPH # 1.9 (1.2-3.4); LYMPH % 22.7 % (22.0-35.0); MEAN CELL VOLUME 90.5 fl (80.0-105.0); MEAN CORPUSCULAR HGB CONC 33.2 g/dl (31.0-37.0); MEAN PLATELET VOLUME 9.2 fl (7.0-11.0); MONO # 0.7 (0.1-0.6); MONO % 8.2 % (1.0-6.0); WHITE BLOOD COUNT 8.6 10^3/ul (4.5-11.0)
--- NOTE | 2017-06-19 00:53 | HP ---
DATE: 06/17/2017 HISTORY OF PRESENT ILLNESS: Mr. Ennis is a 81-year-old male admitted to the hospital with the urosepsis. He fell from the bed as per the . He also had fever and high white count of 22,000 in the ED. He has past medical history of hypertension, blood pressure controlled on current medications, diabetes mellitus type 2, macular degeneration and mesenteric ischemia. No abdominal pain, no nausea, no vomiting. No signs suggestive of mesenteric ischemia. PAST MEDICAL HISTORY: Coronary artery disease, hypertension, CVA, diabetes mellitus type 2, recurrent falls at home, and urinary incontinence. PAST SURGICAL HISTORY: Appendectomy. SOCIAL HISTORY: He lives at home. PERSONAL HISTORY: Nonsmoker, no history of alcohol abuse. ALLERGIES: NO KNOWN DRUG ALLERGIES. REVIEW OF SYSTEMS: As per HPI, rest of 12-point review of systems reviewed and negative. PHYSICAL EXAMINATION: GENERAL: Comfortable in bed, confused, responsive, oriented to place, person. VITAL SIGNS: Afebrile, temperature 98.9, heart rate is 100 per minute, respiratory rate 18 per minute, blood pressure 130/80 and pulse ox is 99% room air. HEENT: Except Pallor positive, it is unremarkable. CHEST: Air entry present and equal bilaterally. No added sounds. CARDIOVASCULAR: S1 and S2 normal. No murmur. No gallop. ABDOMEN: Soft and nontender. No hepatosplenomegaly. EXTREMITIES: No edema. SKIN: No petechia, no rash. PSYCHIATRIC: Alert and oriented x3. No focal or sensory motor deficit. LABORATORY DATA: White count is 22,000, hemoglobin 10.6, hematocrit 32.2 and platelet count 384. Sodium 142, potassium 4, BUN 33, creatinine 3.4 and glucose 164. Granulocyte 87%, monocyte 1%, eosinophils 0.4%. UA positive. Chest x ray, no infiltrates. CAT scan of the head; old infarction at a right cerebellum, small lacunar old infarction at a right trung. ASSESSMENT: 1. Altered mental status. 2. Urosepsis. 3. Hypertension. 4. Leukocytosis. 5. Anemia. 6. Chronic kidney disease. PLAN: He will be admitted to the hospital, IV fluids, normal saline at 60 mL an hour, Zosyn 2.25 mg q. 6 hours IV, Protonix 40 mg IV daily, Remeron 2,5 mg p.o. at bedtime, Lipitor 10 mg daily and Seroquel 12.5 mg daily. We will continue to monitor blood count, UA, urine culture to be sent. Labs ordered for the morning, CBC and BMP. Judy Harper MD
--- NOTE | 2017-06-19 01:58 | PN ---
DATE: 06/18/2017 SUBJECTIVE: He is comfortable in the bed, in no acute distress. He is oriented to place and person. Denies any complaints. No chest pain. No shortness of breath. Urine culture showed yeast. He is currently on IV antibiotic, Zosyn. REVIEW OF SYSTEMS: As per HPI. Rest of 12-point review of systems reviewed and negative. PHYSICAL EXAMINATION: GENERAL: Comfortable in bed in no acute distress. VITAL SIGNS: Temperature 98.5, heart rate is 102 per minute, blood pressure 140/80, respiratory rate 18 per minute and oxygen saturation 96% on room air. HEENT: Unremarkable. NECK: No lymphadenopathy. CHEST: Air entry present and equal bilaterally. No added sound. CARDIOVASCULAR: S1 and S2 normal. No murmur. No gallop. ABDOMEN: Soft and nontender. No hepatosplenomegaly. EXTREMITIES: No edema. CENTRAL NERVOUS SYSTEM: No focal sensory or motor deficits. LABORATORY DATA: White count 8.6, hemoglobin 8.2, hematocrit 24.7 and platelet 263. Creatinine 2.9, sodium 138, potassium 4.2, calcium 8 and albumin 2.4. MEDICATIONS: Lipitor 10 mg daily, Remeron 7.5 mg at bedtime, Protonix 40 mg daily, Zosyn q.6 hours and Seroquel 12.5 mg p.o. at bedtime. ASSESSMENT: 1. Urosepsis. 2. Leukocytosis. 3. Anemia. 4. Chronic kidney disease stage III. PLAN: He is currently on Zosyn IV antibiotics. ID consultation Dr. Zamora appreciated and note reviewed. Urine culture showing yeast. Blood culture negative. He is comfortable with Seroquel 12.5 mg p.o. at bedtime. We will continue diet. He is also on Remeron 7.5 mg at bedtime. We will continue that. Continue Lipitor 10 mg daily. Labs ordered for the morning. Renal function improved. White count improved. Hemoglobin declined to 8.2. We will continue to monitor. Anemia, multifactorial iron deficiency. Chronic kidney disease. Judy Harper MD
[2017-06-19] MEDS: Piperacillin/Tazobact 2.25gm 2.25 GM/100 ML BAG IVPB SCH ×2 (05:03→12:13)
[2017-06-19 07:20] VITALS: RESP 20
[2017-06-19] MEDS: Pantoprazole 40 mg EC Tab PO SCH (11:00)
--- NOTE | 2017-06-19 11:27 | CP.PCM.PN ---
<Tabatha Connelly - Last Filed: 06/19/17 13:06> Subjective - Date & Time of Evaluation Date of Evaluation: 06/19/17 Time of Evaluation: 11:25 - Subjective Subjective: PGY-[address] Newman Patient seen and examined at bedside. No acute distress. Patient states that he is feeling better. He states that he is tolerating his diet. He denies fever, chills, n/v/d/c, abd pain, dysuria, chest pain and sob. Objective - Vital Signs/Intake and Output Vital Signs (last 24 hours): Temp Pulse Resp BP Pulse Ox 97.4 F L 80 20 156/93 H 95 06/19/17 07:20 06/19/17 07:20 06/19/17 07:20 06/19/17 07:20 06/19/17 07:20 - Medications Medications: Current Medications Atorvastatin Calcium (Lipitor) 10 mg PO HS [facility] Last Admin: 06/18/17 21:59 Dose: 10 mg Fluconazole (Diflucan) 100 mg PO DAILY [facility] PRN Reason: Protocol Last Admin: 06/19/17 11:00 Dose: 100 mg Piperacillin Sod/Tazobactam Sod (Zosyn 2.25 Gm In 0.9% 100 Ml) 2.25 gm in 100 mls @ 100 mls/hr IVPB Q6 [facility] PRN Reason: Protocol Stop: 06/24/17 00:01 Last Admin: 06/19/17 05:03 Dose: 100 mls/hr Mirtazapine (Remeron) 7.5 mg PO HS [facility] Last Admin: 06/18/17 22:00 Dose: 7.5 mg Pantoprazole Sodium (Protonix Ec Tab) 40 mg PO DAILY [facility] Last Admin: 06/19/17 11:00 Dose: 40 mg Quetiapine Fumarate (Seroquel) 12.5 mg PO HS [facility] PRN Reason: Protocol Last Admin: 06/18/17 22:00 Dose: 12.5 mg - Labs Labs: 06/18/17 13:20 06/17/17 07:00 PT 12.0 Seconds (9.9-11.8) H 06/16/17 13:05 INR 1.11 (0.93-1.08) H 06/16/17 13:05 APTT 29.3 Seconds (23.7-30.8) 06/16/17 13:05 - Constitutional Appears: Well, No Acute Distress - Head Exam Head Exam: ATRAUMATIC, NORMAL INSPECTION, NORMOCEPHALIC - Eye Exam Eye Exam: EOMI, Normal appearance - ENT Exam ENT Exam: Mucous Membranes Moist - Respiratory Exam Respiratory Exam: Decreased Breath Sounds, Clear to Ausculation Bilateral, NORMAL BREATHING PATTERN. absent: Rales, Rhonchi, Wheezes, Respiratory Distress - Cardiovascular Exam Cardiovascular Exam: REGULAR RHYTHM, +S1, +S2. absent: Tachycardia, Murmur - GI/Abdominal Exam GI & Abdominal Exam: Soft, Normal Bowel Sounds. absent: Distended, Firm, Tenderness - Extremities Exam Extremities Exam: Normal Inspection. absent: Pedal Edema - Neurological Exam Neurological Exam: Alert, Awake - Skin Skin Exam: Dry, Intact, Normal Color Assessment and Plan - Assessment and Plan (Free Text) Assessment: 81 yo male with PMH HLD, CAD, HTN, DM, presents with urosepsis. Plan: 1. urosepsis - urine culture grew yeast species - Blood cultures negative - leukocytosis improving - started fluconazole - cont zosyn - ID consulted 2. anemia - stable - multifactorial due to iron deficiency and CKD - cont to monitor 3. CKD - cr and BUN elevated - downtrending <Jakob Newman S - Last Filed: 06/19/17 21:27> Objective - Vital Signs/Intake and Output Vital Signs (last 24 hours): Temp Pulse Resp BP Pulse Ox 97.5 F L 82 20 156/93 H 96 06/19/17 16:00 06/19/17 16:00 06/19/17 16:00 06/19/17 07:20 06/19/17 16:00 Intake and Output: 06/19/17 06/20/17 18:59 06:59 Intake Total 960 240 Balance 960 240 - Medications Medications: Current Medications Atorvastatin Calcium (Lipitor) 10 mg PO HS [facility] Last Admin: 06/18/17 21:59 Dose: 10 mg Fluconazole (Diflucan) 50 mg PO DAILY [facility] PRN Reason: Protocol Mirtazapine (Remeron) 7.5 mg PO HS [facility] Last Admin: 06/18/17 22:00 Dose: 7.5 mg Pantoprazole Sodium (Protonix Ec Tab) 40 mg PO DAILY [facility] Last Admin: 10/02/17 11:00 Dose: 40 mg Quetiapine Fumarate (Seroquel) 12.5 mg PO HS [facility] PRN Reason: Protocol Last Admin: 06/18/17 22:00 Dose: 12.5 mg - Labs Labs: 06/18/17 13:20 06/17/17 07:00 PT 12.0 Seconds (9.9-11.8) H 06/16/17 13:05 INR 1.11 (0.93-1.08) H 06/16/17 13:05 APTT 29.3 Seconds (23.7-30.8) 06/16/17 13:05 Assessment and Plan - Assessment and Plan (Free Text) Plan: Pt seen and examined. Agree with above note and plan of resident. Spoke to today to give update. Will speak to ID about switching to PO Abx to send pt home.
--- NOTE | 2017-06-19 14:11 | CP.PCM.PN ---
Subjective - Date & Time of Evaluation Date of Evaluation: 06/19/17 Time of Evaluation: 12:10 - Subjective Subjective: Comfortable, no fevers, not in distress, no abdominal pain, eating his lunch well. Objective - Vital Signs/Intake and Output Vital Signs (last 24 hours): Temp Pulse Resp BP Pulse Ox 97.4 F L 80 20 156/93 H 95 06/19/17 07:20 06/19/17 07:20 06/19/17 07:20 06/19/17 07:20 06/19/17 07:20 - Medications Medications: Current Medications Atorvastatin Calcium (Lipitor) 10 mg PO HS [facility] Last Admin: 06/18/17 21:59 Dose: 10 mg Fluconazole (Diflucan) 100 mg PO DAILY [facility] PRN Reason: Protocol Last Admin: 06/19/17 11:00 Dose: 100 mg Piperacillin Sod/Tazobactam Sod (Zosyn 2.25 Gm In 0.9% 100 Ml) 2.25 gm in 100 mls @ 100 mls/hr IVPB Q6 [facility] PRN Reason: Protocol Stop: 06/24/17 00:01 Last Admin: 06/19/17 05:03 Dose: 100 mls/hr Mirtazapine (Remeron) 7.5 mg PO HS [facility] Last Admin: 06/18/17 22:00 Dose: 7.5 mg Pantoprazole Sodium (Protonix Ec Tab) 40 mg PO DAILY [facility] Last Admin: 06/19/17 11:00 Dose: 40 mg Quetiapine Fumarate (Seroquel) 12.5 mg PO HS [facility] PRN Reason: Protocol Last Admin: 06/18/17 22:00 Dose: 12.5 mg - Labs Labs: 06/18/17 13:20 06/17/17 07:00 PT 12.0 Seconds (9.9-11.8) H 06/16/17 13:05 INR 1.11 (0.93-1.08) H 06/16/17 13:05 APTT 29.3 Seconds (23.7-30.8) 06/16/17 13:05 - Constitutional Appears: Non-toxic, No Acute Distress - Head Exam Head Exam: NORMAL INSPECTION - ENT Exam ENT Exam: Mucous Membranes Moist - Neck Exam Neck Exam: absent: Meningismus - Respiratory Exam Respiratory Exam: Decreased Breath Sounds - Cardiovascular Exam Cardiovascular Exam: +S1, +S2 - GI/Abdominal Exam GI & Abdominal Exam: Soft. absent: Tenderness Assessment and Plan - Assessment and Plan (Free Text) Plan: Assessment R/O sepsis due to UTI with yeast in the urine Diarrhea with associated rectosigmoid colitis - no evidence of C. diff. colitis history of acute mesenteric ischemia associated with the superior and inferior mesenteric arteries now S/P angioplasty S/P Strep mitis bacteremia with 2D echo negative for vegetations CVA chronic renal failure HTN macular degeneration DM history of urinary retention Plan will discontinue Zosyn, continue Diflucan and repeat urine cx; will also get renal ultrasound to rule out kidney stones will monitor clinically
--- NOTE | 2017-06-19 15:44 | US ---
PROCEDURE: Ultrasound of the Kidneys HISTORY: R/O kidney stones, hydronephrosis COMPARISON: None available. TECHNIQUE: Sonogram of the kidneys. FINDINGS: RIGHT KIDNEY: Measures: 9.4 x 4.4 x 4.4 cm. Mild cortical atrophy is appreciated no definite urolithiasis. No definitive solid renal parenchymal mass. No perinephric fluid collection or hydronephrosis. LEFT KIDNEY: Measures: 10.1 x 5.2 x 4.6 cm. Mild left renal cortical atrophy is appreciated with a questionable 2 mm calculus at the midpole left kidney. A small cortical cyst identified at the midpole laterally, 1.0 cm greatest dimension avascular on color Doppler ultrasound. No solid mass lesion or hydronephrosis visualized. OTHER FINDINGS: None. IMPRESSION: Mild bilateral renal cortical atrophy is identified with questionable 2 mm intrarenal calculus at the midpole left kidney. No obstructive uropathy bilaterally. A small simple cyst seen at the midpole left kidney laterally.
[2017-06-20 07:53] VITALS: BP 142/90; PULSE 85; TEMP 97.9; O2SAT 98
--- NOTE | 2017-06-20 09:07 | CP.PCM.PN ---
Subjective - Date & Time of Evaluation Date of Evaluation: 06/20/17 Time of Evaluation: 09:07 - Subjective Subjective: PGY-[address] Newman Patient seen and examined at bedside. No acute distress. Patient is alert and oriented to person and place. He currently does not complain of any pain, he denies chest pain, sob, fever, chills, dysuria. Patient is tolerating diet. Objective - Vital Signs/Intake and Output Vital Signs (last 24 hours): Temp Pulse Resp BP Pulse Ox 97.9 F 85 20 142/90 98 06/20/17 07:30 06/20/17 07:30 06/20/17 07:30 06/20/17 07:30 06/20/17 07:30 Intake and Output: 06/20/17 06/20/17 06:59 18:59 Intake Total 540 Output Total 1 Balance 539 - Medications Medications: Current Medications Atorvastatin Calcium (Lipitor) 10 mg PO HS [facility] Last Admin: 06/19/17 21:23 Dose: 10 mg Fluconazole (Diflucan) 50 mg PO DAILY [facility] PRN Reason: Protocol Mirtazapine (Remeron) 7.5 mg PO HS [facility] Last Admin: 06/19/17 21:23 Dose: 7.5 mg Pantoprazole Sodium (Protonix Ec Tab) 40 mg PO DAILY [facility] Last Admin: 06/19/17 11:00 Dose: 40 mg Quetiapine Fumarate (Seroquel) 12.5 mg PO HS [facility] PRN Reason: Protocol Last Admin: 06/19/17 21:23 Dose: 12.5 mg - Labs Labs: 06/18/17 13:20 06/17/17 07:00 PT 12.0 Seconds (9.9-11.8) H 06/16/17 13:05 INR 1.11 (0.93-1.08) H 06/16/17 13:05 APTT 29.3 Seconds (23.7-30.8) 06/16/17 13:05
[2017-06-20] MEDS ORDERED: Darbepoetin Alfa 100 mcg/ml Inj SC ONE (10:17)
--- NOTE | 2017-06-20 13:26 | CP.PCM.DIS ---
<Tabatha Connelly - Last Filed: 06/20/17 13:23> Provider - Provider Date of Admission: 06/16/17 13:09 Attending physician: Jakob Newman MD Primary care physician: NO PRIMARY CARE PROVIDER Time Spent in preparation of Discharge (in minutes): 40 Hospital Course - Lab Results Lab Results: Most Recent Lab Values WBC 8.6 10^3/ul (4.5-11.0) D 06/18/17 13:20 RBC 2.73 10^6/uL (3.5-6.1) L 06/18/17 13:20 Hgb 8.2 g/dL (14.0-18.0) L 06/18/17 13:20 Hct 24.7 % (42.0-52.0) L 06/18/17 13:20 MCV 90.5 fl (80.0-105.0) 06/18/17 13:20 MCH 30.0 pg (25.0-35.0) 06/18/17 13:20 MCHC 33.2 g/dl (31.0-37.0) 06/18/17 13:20 RDW 16.0 % (11.5-14.5) H 06/18/17 13:20 Plt Count 263 10^3/uL (120.0-450.0) 06/18/17 13:20 MPV 9.2 fl (7.0-11.0) 06/18/17 13:20 Gran % 58.8 % (50.0-68.0) 06/18/17 13:20 Lymph % (Auto) 22.7 % (22.0-35.0) 06/18/17 13:20 [place] % (Auto) 8.2 % (1.0-6.0) H 06/18/17 13:20 Eos % (Auto) 8.8 % (1.5-5.0) H 06/18/17 13:20 Baso % (Auto) 1.5 % (0.0-3.0) 06/18/17 13:20 Gran # 5.03 (1.4-6.5) 06/18/17 13:20 Lymph # 1.9 (1.2-3.4) 06/18/17 13:20 Pine # 0.7 (0.1-0.6) H 06/18/17 13:20 Eos # 0.8 (0.0-0.7) H 06/18/17 13:20 Baso # 0.13 K/mm3 (0.0-2.0) 06/18/17 13:20 PT 12.0 Seconds (9.9-11.8) H 06/16/17 13:05 INR 1.11 (0.93-1.08) H 06/16/17 13:05 APTT 29.3 Seconds (23.7-30.8) 06/16/17 13:05 pO2 48 mm/Hg (30-55) 06/16/17 14:25 VBG pH 7.24 (7.32-7.43) L 06/16/17 14:25 VBG pCO2 51.0 (40-60) 06/16/17 14:25 VBG HCO3 21.9 mmol/l (21-28) 06/16/17 14:25 VBG Total CO2 23.5 mmol.L (22-28) 06/16/17 14:25 VBG O2 Sat (Calc) 82.2 % (40-65) H 06/16/17 14:25 VBG Base Excess -5.9 mmol/L (0.0-2.0) L 06/16/17 14:25 VBG Potassium 3.8 mmol/L (3.6-5.2) 06/16/17 14:25 Sodium 140.0 mmol/L (132-148) 06/16/17 14:25 Chloride 110.0 mmol/L (98-107) H 06/16/17 14:25 Glucose 99 mg/dl (75-110) 06/16/17 14:25 Lactate 3.5 mmol/L (0.7-2.1) H 06/16/17 14:25 FiO2 21.0 % 06/16/17 14:25 Sodium 138 mmol/L (132-148) 06/17/17 07:00 Potassium 4.2 mmol/L (3.6-5.0) 06/17/17 07:00 Chloride 112 mmol/L (98-107) H 06/17/17 07:00 Carbon Dioxide 19 mmol/L (21-33) L 06/17/17 07:00 Anion Gap 11 (10-20) 06/17/17 07:00 BUN 32 mg/dL (7-21) H 06/17/17 07:00 Creatinine 2.9 mg/dL (0.5-1.4) H 06/17/17 07:00 Est GFR ( Amer) 26 06/17/17 07:00 Est GFR (Non-Af Amer) 21 06/17/17 07:00 POC Glucose (mg/dL) 104 mg/dL (65-110) 06/16/17 19:06 Random Glucose 70 mg/dL (70-110) 06/17/17 07:00 Calcium 8.0 mg/dL (8.4-10.5) L 06/17/17 07:00 Phosphorus 5.2 mg/dL (2.5-4.5) H 06/16/17 11:15 Magnesium 2.0 mg/dL (1.7-2.2) 06/16/17 11:15 Total Bilirubin 0.4 mg/dL (0.2-1.3) 06/17/17 07:00 AST 24 U/L (17-59) 06/17/17 07:00 ALT 20 U/L (7-56) 06/17/17 07:00 Alkaline Phosphatase 46 U/L (38-126) 06/17/17 07:00 Total Protein 5.2 g/dL (5.8-8.3) L 06/17/17 07:00 Albumin 2.4 g/dL (3.0-4.8) L 06/17/17 07:00 Globulin 2.8 gm/dL 06/17/17 07:00 Albumin/Globulin Ratio 0.9 (1.1-1.8) L 06/17/17 07:00 Procalcitonin 0.54 NG/ML (0.19-0.49) H 06/16/17 11:15 Venous Blood Potassium 3.8 mmol/L (3.6-5.2) 06/16/17 14:25 Urine Color Light yellow (YELLOW) 06/16/17 13:05 Urine Appearance Turbid (CLEAR) 06/16/17 13:05 Urine pH 6.0 (4.7-8.0) 06/16/17 13:05 Ur Specific [place] 1.025 (1.005-1.035) 06/16/17 13:05 Urine Protein 100 mg/dL (<30 mg/dL) H 06/16/17 13:05 Urine Glucose (UA) Negative mg/dL (NEGATIVE) 06/16/17 13:05 Urine Ketones Negative mg/dL (NEGATIVE) 06/16/17 13:05 Urine Blood Moderate (NEGATIVE) H 06/16/17 13:05 Urine Nitrate Negative (NEGATIVE) 06/16/17 13:05 Urine Bilirubin Negative (NEGATIVE) 06/16/17 13:05 Urine Urobilinogen 0.2 E.U./dL (<1 E.U./dL) 06/16/17 13:05 Ur Leukocyte Esterase Large Addie/uL (NEGATIVE) H 06/16/17 13:05 Urine RBC 1 - 3 /hpf (0-2) 06/16/17 13:05 Urine WBC Tntc /hpf (0-6) 06/16/17 13:05 Ur Epithelial Cells 0 - 2 /hpf (0-5) 06/16/17 13:05 Urine Bacteria Many (NEG) 06/16/17 13:05 - Hospital Course Hospital Course: 81 yo male with PMH HLD, CAD, HTN, DMII, presented to ED with fever with leukocytosis and fall. He was found to have sepsis secondary to UTI with yeast species on urine cultures. Head CT did not show any acute hemorrhage or infarct. CXR showed no acute findings. Pelvic xray showed no acute findings. Blood cultures were negative. Patient was initially started on zosyn. Once cultures returned he was started on fluconazole and zosyn was discontinued. ID was consulted. Renal ultrasound showed 2mm intrarenal calculus, no obstructive uropathy bilaterally. Throughout hospital course leukocytosis improved. Patient was also monitored for his anemia, multifactorial due to iron deficiency and CKD. His stage IV CKD was also monitored. Patient was in no acute distress. He does not complain of any pain, he denies chest pain, sob, fever, chills, dysuria. Discharge Exam - Head Exam Head Exam: ATRAUMATIC, NORMAL INSPECTION, NORMOCEPHALIC - Eye Exam Eye Exam: EOMI, Normal appearance - ENT Exam ENT Exam: Mucous Membranes Moist - Respiratory Exam Respiratory Exam: Clear to PA & Lateral, NORMAL BREATHING PATTERN, UNREMARKABLE. absent: Decreased Breath Sounds, Rales, Rhonchi, Wheezes, Respiratory Distress - Cardiovascular Exam Cardiovascular Exam: REGULAR RHYTHM, +S1. absent: Tachycardia, Diastolic murmur , Systolic Murmur - GI/Abdominal Exam GI & Abdominal Exam: Normal Bowel Sounds, Soft, Unremarkable. absent: Diminished Bowel Sounds, Distended, Firm, Tenderness - Extremities Exam Extremities exam: normal inspection - Neurological Exam Neurological exam: Alert, CN II-XII Intact - Skin Skin Exam: Dry, Intact, Normal Color, Warm Discharge Plan - Discharge Medications Prescriptions: Fluconazole [Diflucan] 50 mg PO DAILY #6 tab - Follow Up Plan Condition: GUARDED Disposition: HOME/ ROUTINE Instructions: Dehydration (DC), Diabetes Mellitus Type 2 in Adults (DC), Fall Prevention for Older Adults (GEN), Sepsis (GEN), Hyperlipidemia (DC) Additional Instructions: Take medications as directed. Follow up with primary care provider. Return to Local ER if symptoms worsen. Referrals: PCP,NO [Primary Care Provider] - <Jakob Newman - Last Filed: 06/20/17 16:54> Provider - Provider Date of Admission: 06/16/17 13:09 Attending physician: Jakob Newman MD Primary care physician: NO PRIMARY CARE PROVIDER Hospital Course - Lab Results Lab Results: Most Recent Lab Values WBC 8.6 10^3/ul (4.5-11.0) D 06/18/17 13:20 RBC 2.73 10^6/uL (3.5-6.1) L 06/18/17 13:20 Hgb 8.2 g/dL (14.0-18.0) L 06/18/17 13:20 Hct 24.7 % (42.0-52.0) L 06/18/17 13:20 MCV 90.5 fl (80.0-105.0) 06/18/17 13:20 MCH 30.0 pg (25.0-35.0) 06/18/17 13:20 MCHC 33.2 g/dl (31.0-37.0) 06/18/17 13:20 RDW 16.0 % (11.5-14.5) H 06/18/17 13:20 Plt Count 263 10^3/uL (120.0-450.0) 06/18/17 13:20 MPV 9.2 fl (7.0-11.0) 06/18/17 13:20 Gran % 58.8 % (50.0-68.0) 06/18/17 13:20 Lymph % (Auto) 22.7 % (22.0-35.0) 06/18/17 13:20 Pine % (Auto) 8.2 % (1.0-6.0) H 06/18/17 13:20 Eos % (Auto) 8.8 % (1.5-5.0) H 06/18/17 13:20 Baso % (Auto) 1.5 % (0.0-3.0) 06/18/17 13:20 Gran # 5.03 (1.4-6.5) 06/18/17 13:20 Lymph # 1.9 (1.2-3.4) 06/18/17 13:20 Pine # 0.7 (0.1-0.6) H 06/18/17 13:20 Eos # 0.8 (0.0-0.7) H 06/18/17 13:20 Baso # 0.13 K/mm3 (0.0-2.0) 06/18/17 13:20 PT 12.0 Seconds (9.9-11.8) H 06/16/17 13:05 INR 1.11 (0.93-1.08) H 06/16/17 13:05 APTT 29.3 Seconds (23.7-30.8) 06/16/17 13:05 pO2 48 mm/Hg (30-55) 06/16/17 14:25 VBG pH 7.24 (7.32-7.43) L 06/16/17 14:25 VBG pCO2 51.0 (40-60) 06/16/17 14:25 VBG HCO3 21.9 mmol/l (21-28) 06/16/17 14:25 VBG Total CO2 23.5 mmol.L (22-28) 06/16/17 14:25 VBG O2 Sat (Calc) 82.2 % (40-65) H 06/16/17 14:25 VBG Base Excess -5.9 mmol/L (0.0-2.0) L 06/16/17 14:25 VBG Potassium 3.8 mmol/L (3.6-5.2) 06/16/17 14:25 Sodium 140.0 mmol/L (132-148) 06/16/17 14:25 Chloride 110.0 mmol/L (98-107) H 06/16/17 14:25 Glucose 99 mg/dl (75-110) 06/16/17 14:25 Lactate 3.5 mmol/L (0.7-2.1) H 06/16/17 14:25 FiO2 21.0 % 06/16/17 14:25 Sodium 138 mmol/L (132-148) 06/17/17 07:00 Potassium 4.2 mmol/L (3.6-5.0) 06/17/17 07:00 Chloride 112 mmol/L (98-107) H 06/17/17 07:00 Carbon Dioxide 19 mmol/L (21-33) L 06/17/17 07:00 Anion Gap 11 (10-20) 06/17/17 07:00 BUN 32 mg/dL (7-21) H 06/17/17 07:00 Creatinine 2.9 mg/dL (0.5-1.4) H 06/17/17 07:00 Est GFR ( Amer) 26 06/17/17 07:00 Est GFR (Non-Af Amer) 21 06/17/17 07:00 POC Glucose (mg/dL) 104 mg/dL (65-110) 06/16/17 19:06 Random Glucose 70 mg/dL (70-110) 06/17/17 07:00 Calcium 8.0 mg/dL (8.4-10.5) L 06/17/17 07:00 Phosphorus 5.2 mg/dL (2.5-4.5) H 06/16/17 11:15 Magnesium 2.0 mg/dL (1.7-2.2) 06/16/17 11:15 Total Bilirubin 0.4 mg/dL (0.2-1.3) 06/17/17 07:00 AST 24 U/L (17-59) 06/17/17 07:00 ALT 20 U/L (7-56) 06/17/17 07:00 Alkaline Phosphatase 46 U/L (38-126) 06/17/17 07:00 Total Protein 5.2 g/dL (5.8-8.3) L 06/17/17 07:00 Albumin 2.4 g/dL (3.0-4.8) L 06/17/17 07:00 Globulin 2.8 gm/dL 06/17/17 07:00 Albumin/Globulin Ratio 0.9 (1.1-1.8) L 06/17/17 07:00 Procalcitonin 0.54 NG/ML (0.19-0.49) H 06/16/17 11:15 Venous Blood Potassium 3.8 mmol/L (3.6-5.2) 06/16/17 14:25 Urine Color Light yellow (YELLOW) 06/16/17 13:05 Urine Appearance Turbid (CLEAR) 06/16/17 13:05 Urine pH 6.0 (4.7-8.0) 06/16/17 13:05 Ur Specific [place] 1.025 (1.005-1.035) 06/16/17 13:05 Urine Protein 100 mg/dL (<30 mg/dL) H 06/16/17 13:05 Urine Glucose (UA) Negative mg/dL (NEGATIVE) 06/16/17 13:05 Urine Ketones Negative mg/dL (NEGATIVE) 06/16/17 13:05 Urine Blood Moderate (NEGATIVE) H 06/16/17 13:05 Urine Nitrate Negative (NEGATIVE) 06/16/17 13:05 Urine Bilirubin Negative (NEGATIVE) 06/16/17 13:05 Urine Urobilinogen 0.2 E.U./dL (<1 E.U./dL) 06/16/17 13:05 Ur Leukocyte Esterase Large Addie/uL (NEGATIVE) H 06/16/17 13:05 Urine RBC 1 - 3 /hpf (0-2) 06/16/17 13:05 Urine WBC Tntc /hpf (0-6) 06/16/17 13:05 Ur Epithelial Cells 0 - 2 /hpf (0-5) 06/16/17 13:05 Urine Bacteria Many (NEG) 06/16/17 13:05 - Hospital Course Hospital Course: Pt seen and examined. Agree with above note of medical scientist. Meds reviewed. Eating ok. Pt to be discharged home.
--- NOTE | 2017-06-20 13:34 | PN ---
DATE: 06/20/2017 SUBJECTIVE: The patient is in bed, in no acute distress, chronically ill. PHYSICAL EXAMINATION: VITAL SIGNS: Temperature is 97, blood pressure is 140/80 and respiratory rate of 16. HEENT: Unremarkable. NECK: Supple. LUNGS: Decreased breath sounds. HEART EXAM: Reveals normal S1 and S2. ABDOMINAL EXAMINATION: Soft and nontender. LABORATORY EXAMINATION: Reveals a white count of 8.6, hemoglobin of 8 and platelets of 263. Chemistries reveal a BUN of 32, creatinine of 2.9. Procalcitonin of 0.54. Urinalysis is noted and microbiology reveals yeast in the urine. The blood cultures have no growth. REVIEW OF ORDERS: Reveals the patient to be on p.o. Diflucan and atorvastatin. The patient had a renal ultrasound which shows mild bilateral renal cortical atrophy, questionable 2-mm infrarenal calculus at the midpole of left kidney. ASSESSMENT AND PLAN: This is a 81-year-old male with sepsis due to yeast in the urine and diarrhea associated with rectosigmoid colitis. No evidence of pseudomembranous colitis. 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 Diflucan. Continue present course. Long-term prognosis is poor. Moe Zamora MD
== END 2017-06-20 13:47 | disposition home or self-care (01) | DRG 872 ==
LOC: ED 10:20 → ERH 13:09 → 5RNO 16:12
PROVIDERS: ADMIT Internal Medicine Nephrology; ATTEND Internal Medicine Nephrology
DX: A41.9 Sepsis, unspecified organism (principal); B37.49 Other urogenital candidiasis; N17.9 Acute kidney failure, unspecified; N18.4 Chronic kidney disease, stage 4 (severe); K52.9 Noninfective gastroenteritis and colitis, unspecified; R65.20 Severe sepsis without septic shock; F03.90 Unspecified dementia, unspecified severity, without behavioral disturbance, psychotic disturbance, mood disturbance, and anxiety; E86.0 Dehydration; I12.9 Hypertensive chronic kidney disease with stage 1 through stage 4 chronic kidney disease, or unspecified chronic kidney disease; D63.1 Anemia in chronic kidney disease; E11.22 Type 2 diabetes mellitus with diabetic chronic kidney disease; H35.30 Unspecified macular degeneration; D50.9 Iron deficiency anemia, unspecified; R33.9 Retention of urine, unspecified; F32.9 Major depressive disorder, single episode, unspecified; Z86.73 Personal history of transient ischemic attack (TIA), and cerebral infarction without residual deficits

== ENCOUNTER 2017-06-29 08:56 | Inpatient (IN) | payer MEDICARE, OTHER ==
--- NOTE | 2017-06-29 09:58 | ED PDOC ---
Arrival/HPI - General Chief Complaint: Trauma Time Seen by Provider: 06/29/17 09:49 Historian: Patient, Family, EMS - History of Present Illness Narrative History of Present Illness (Text): 06/29/17 09:55 A 81 year old male, whose past medical history includes hypertension, hyperlipidemia and frequent UTI's, brought into the emergency department by EMS accompanied by family after fall this morning. As per family, patient fell out of bed. Patient is mildly confused at baseline and unable to provide any further history. Patient denies any pain or discomfort at this time. HPI and ROS limited. Time/Duration: Prior to Arrival Context: Home Past Medical History - Provider Review Nursing Documentation Reviewed: Yes - Infectious Disease Hx of Infectious Diseases: None - Tetanus Immunization Tetanus Immunization: Unknown - Cardiac Hx Cardiac Disorders: Yes Hx Hypertension: Yes - Pulmonary Hx Respiratory Disorders: No - Neurological Hx Neurological Disorder: Yes HX Cerebrovascular Accident: Yes - HEENT Hx HEENT Disorder: Yes Hx Macular Degeneration: Yes Other/Comment: egd for removal of foreign body 06/08/14 - Renal Hx Renal Disorder: No - Endocrine/Metabolic Hx Diabetes Mellitus Type 2: Yes - Hematological/Oncological Hx Blood Disorders: No - Integumentary Hx Dermatological Disorder: Yes Hx Basal Cell Carcinoma: No Other/Comment: HEALED SCARRED AREA TO SACRAL AND BILATERAL BUTTOCKS AREA. BLANCHABLE AREA. - Musculoskeletal/Rheumatological Hx Musculoskeletal Disorders: Yes (b/l leg pain) Hx Falls: Yes (FREQUENT RECENT) Hx Unsteady Gait: Yes (w/ch can't walk/stand) - Gastrointestinal Hx Gastrointestinal Disorders: Yes (CONSTIPATION.) - Genitourinary/Gynecological Hx Genitourinary Disorders: Yes Hx Incontinence: Yes - Psychiatric Hx Psychophysiologic Disorder: Yes Hx Depression: Yes Hx Emotional Abuse: No Hx Physical Abuse: No Hx Substance Use: No - Surgical History Hx Appendectomy: Yes Other/Comment: sebaceous cyst removal - Anesthesia Hx Anesthesia: Yes Hx Anesthesia Reactions: Yes (unknown; 2017) Hx Malignant Hyperthermia: No - Suicidal Assessment Feels Threatened In Home Enviroment: No Family/Social History - Physician Review Nursing Documentation Reviewed: Yes Family/Social History: No Known Family HX Smoking Status: Unknown If Ever Smoked Hx Alcohol Use: No Hx Substance Use: No Hx Substance Use Treatment: No Allergies/Home Meds Allergies/Adverse Reactions: Allergies No Known Allergies Allergy (Verified 06/16/17 16:30) Per EMS and which is at home. Pt is confused due to dementia Hx Home Medications: Home Meds Medication Instructions Recorded Confirmed Atorvastatin [Lipitor] 10 mg PO HS 06/16/17 06/16/17 Mirtazapine [Remeron] 7.5 mg PO HS 06/16/17 06/16/17 Pantoprazole Sodium [Protonix] 40 mg PO DAILY 06/16/17 06/16/17 QUEtiapine [SEROquel] 12.5 mg PO HS 06/16/17 06/16/17 Review of Systems - Review of Systems Systems not reviewed;Unavailable: Altered Mental Status Physical Exam Vital Signs Temp Pulse Resp BP Pulse Ox 06/29/17 14:00 77 16 131/71 94 L 06/29/17 12:56 72 16 129/71 95 06/29/17 11:00 78 16 100/70 94 L 06/29/17 08:56 97.6 F 82 16 113/73 95 Appearance: Positive for: Other (Contracted) - Systems Exam Head: Present: Atraumatic, Normocephalic Pupils: Present: PERRL Extroacular Muscles: Present: EOMI Conjunctiva: Present: Normal Mouth: Present: Moist Mucous Membranes Respiratory/Chest: Present: Clear to Auscultation, Good Air Exchange. No: Respiratory Distress, Accessory Muscle Use Cardiovascular: Present: Regular Rate and Rhythm, Normal S1, S2. No: Murmurs Abdomen: Present: Normal Bowel Sounds. No: Tenderness, Distention, Peritoneal Signs Upper Extremity: Present: Normal Inspection Lower Extremity: Present: Normal Inspection. No: Edema Skin: Present: Warm, Dry, Normal Color. No: Rashes Psychiatric: Present: Alert. No: Agitated, Lethargic Medical Decision Making ED Course and Treatment: 06/29/17 09:55 Impression: A 81 year old male brought in after fall. Patient denies any pain or discomfort at this time. Plan: -- Head CT -- Pelvis xray -- Chest xray -- EKG -- Urinalysis -- Reassess and disposition Progress Notes: EKG shows NSR at [address]/T wave changes, normal intervals. Interpreted by me. Report Date : 06/29/2017 12:14:52 PROCEDURE: CT HEAD WITHOUT CONTRAST. Dictator : Kevin Barahona MD IMPRESSION: No evidence of acute hemorrhage. Pituitary mass again noted. No evidence of acute infarct. Old infarcts as described. Moderate to severe chronic white matter ischemic change. Nonspecific bilateral mastoid effusion. Fluid/soft tissue density in right middle ear. Please correlate clinically. Report Date : 06/29/2017 12:46:29 Procedure: Chest xray Dictator : Dave Pyle MD IMPRESSION: No active disease. Report Date : 06/29/2017 12:47:52 PROCEDURE: Radiographs of the pelvis. Dictator : Dave Pyle MD IMPRESSION: Unremarkable radiographs of the pelvis. - Lab Interpretations Lab Results: 06/29/17 10:25 06/29/17 10:25 Lab Results 06/29/17 10:25: Sodium 139, Potassium 4.1, Chloride 106, Carbon Dioxide 25, Anion Gap 12, BUN 29 H, Creatinine 2.9 H, Est GFR ( Amer) 26, Est GFR ( Non-Af Amer) 21, Random Glucose 117 H, Calcium 8.8, Total Bilirubin 0.5, AST 18 , ALT 18, Alkaline Phosphatase 70, Troponin I < 0.01, Total Protein 6.7, Albumin 3.1, Globulin 3.6, Albumin/Globulin Ratio 0.9 L 06/29/17 10:25: PT 11.7, INR 1.08, APTT 30.1 06/29/17 10:25: WBC 13.9 H D, RBC 3.51, Hgb 10.4 L D, Hct 32.0 L, MCV 91.2, MCH 29.6, MCHC 32.5, RDW 15.7 H, Plt Count 391, MPV 9.8, Gran % 77.5 H, Lymph % ( Auto) 13.2 L, [place] % (Auto) 5.3, Eos % (Auto) 2.9, Baso % (Auto) 1.1, Gran # 10.78 H, Lymph # 1.8, [place] # 0.7 H, Eos # 0.4, Baso # 0.15 06/29/17 09:54: Urine Color Light yellow, Urine Appearance Cloudy, Urine pH 6.0 , Ur Specific [place] 1.025, Urine Protein 100 H, Urine Glucose (UA) Negative, Urine Ketones Negative, Urine Blood Large H, Urine Nitrate Negative, Urine Bilirubin Negative, Urine Urobilinogen 0.2, Ur Leukocyte Esterase Large H, Urine RBC Tntc, Urine WBC Tntc, Urine Bacteria Many I have reviewed the lab results: Yes - RAD Interpretation Radiology Orders: 06/29/17 09:54 HEAD W/O CONTRAST [CT] Stat CHEST PORTABLE [RAD] Stat PELVIS ONE VIEW [RAD] Stat - Medication Orders Current Medication Orders: Discontinued Medications Ceftriaxone Sodium (Rocephin 1 Gram Ivpb) 1 gm in 100 mls @ 200 mls/hr IVPB STAT STA PRN Reason: Protocol Stop: 06/29/17 13:20 Last Admin: 06/29/17 13:09 Dose: 200 mls/hr eMAR Start Stop Document 06/29/17 13:09 SF (Rec: 06/29/17 13:10 [id number]) Intravenous Solution Start Date 06/29/17 Start Time 13:09 End Date 06/29/17 End time 13:39 Total Infusion Time 30 - Scribe Statement The provider has reviewed the documentation as recorded by the Justo Lester Provider Scribe Attestation: All medical record entries made by the Scribe were at my direction and personally dictated by me. I have reviewed the chart and agree that the record accurately reflects my personal performance of the history, physical exam, medical decision making, and the department course for this patient. I have also personally directed, reviewed, and agree with the discharge instructions and disposition. Disposition/Present on Arrival - Present on Arrival Any Indicators Present on Arrival: No History of DVT/PE: No History of Uncontrolled Diabetes: No Urinary Catheter: Yes History of Decub. Ulcer: No History Surgical Site Infection Following: None - Disposition Have Diagnosis and Disposition been Completed?: Yes Diagnosis: Failure to thrive, UTI (urinary tract infection) Disposition: HOSPITALIZED Disposition Time: 15:00 Condition: FAIR
[2017-06-29 11:07] LABS: BASO # 0.15 K/mm3 (0.0-2.0); BASO % 1.1 % (0.0-3.0); EOS # 0.4 (0.0-0.7); EOS % 2.9 % (1.5-5.0); GRAN # 10.78 (1.4-6.5); GRAN % 77.5 % (50.0-68.0); LYMPH # 1.8 (1.2-3.4); LYMPH % 13.2 % (22.0-35.0); MEAN CELL VOLUME 91.2 fl (80.0-105.0); MEAN CORPUSCULAR HEMOGLOBIN 29.6 pg (25.0-35.0); MEAN CORPUSCULAR HGB CONC 32.5 g/dl (31.0-37.0); MEAN PLATELET VOLUME 9.8 fl (7.0-11.0); MONO # 0.7 (0.1-0.6); MONO % 5.3 % (1.0-6.0); RED CELL DISTRIBUTION WIDTH 15.7 % (11.5-14.5); WHITE BLOOD COUNT 13.9 10^3/ul (4.5-11.0)
[2017-06-29 11:17] LABS: INR 1.08 (0.93-1.08); PARTIAL THROMBOPLASTIN TIME 30.1 Seconds (23.7-30.8)
--- NOTE | 2017-06-29 11:17 | CARD ---
APPROVED REPORT EKG Measurement Heart [id number] <Conclusion> Sinus rhythm with 1st degree AV block T wave abnormality, consider anterolateral ischemia
[2017-06-29 11:19] LABS: ALB/GLOB RATIO 0.9 (1.1-1.8); ALKALINE PHOSPHATASE 70 U/L (38-126); ALT/SGPT 18 U/L (7-56); AST/SGOT 18 U/L (17-59); BILIRUBIN,TOTAL 0.5 mg/dL (0.2-1.3); BLOOD UREA NITROGEN 29 mg/dL (7-21); CALCIUM 8.8 mg/dL (8.4-10.5); CARBON DIOXIDE 25 mmol/L (21-33); CHLORIDE 106 mmol/L (98-107); GFR AFRICAN-AMERICAN 26; GLUCOSE,RANDOM 117 mg/dL (70-110); POTASSIUM 4.1 mmol/L (3.6-5.0); SODIUM 139 mmol/L (132-148); TOTAL PROTEIN 6.7 g/dL (5.8-8.3)
[2017-06-29 11:33] LABS: TROPONIN I < 0.01 ng/mL
--- NOTE | 2017-06-29 12:17 | CT ---
PROCEDURE: CT HEAD WITHOUT CONTRAST. HISTORY: fall COMPARISON: 06/16/2017 TECHNIQUE: Axial computed tomography images were obtained through the head/brain without intravenous contrast. Radiation dose: Total exam DLP = 759.00 mGy-cm. This CT exam was performed using one or more of the following dose reduction techniques: Automated exposure control, adjustment of the mA and/or kV according to patient size, and/or use of iterative reconstruction technique. FINDINGS: HEMORRHAGE: No intracranial hemorrhage. 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 This extends into the suprasellar cistern. There is an old right cerebellar hemispheric infarct with extensive focal encephalomalacia change. There are small old right pontine lacune this. There are old bilateral thalamic lacune nodes. There is no evidence of acute infarct. There is moderate to severe periventricular and deep/ subcortical white matter ischemic change. VENTRICLES: Unremarkable. No hydrocephalus. CALVARIUM: Unremarkable. PARANASAL SINUSES: Unremarkable as visualized. No significant inflammatory changes. MASTOID AIR CELLS: There is nonspecific bilateral mastoid effusion. There is fluid/soft tissue density seen in the right middle ear cavity. Please correlate for possible otitis media. OTHER FINDINGS: None. IMPRESSION: No evidence of acute hemorrhage. Pituitary mass again noted. No evidence of acute infarct. Old infarcts as described. Moderate to severe chronic white matter ischemic change. Nonspecific bilateral mastoid effusion. Fluid/soft tissue density in right middle ear. Please correlate clinically.
--- NOTE | 2017-06-29 12:47 | RAD ---
HISTORY: fall COMPARISON: No prior. FINDINGS: LUNGS: No active pulmonary disease. PLEURA: No significant pleural effusion identified, no pneumothorax apparent. CARDIOVASCULAR: Normal. OSSEOUS STRUCTURES: No significant abnormalities. VISUALIZED UPPER ABDOMEN: Normal. OTHER FINDINGS: None. IMPRESSION: No active disease.
[2017-06-29 12:48] LABS: URINE BILIRUBIN NEGATIVE (NEGATIVE); URINE BLOOD LARGE (NEGATIVE); URINE GLUCOSE (UA) NEGATIVE (NEGATIVE); URINE KETONE NEGATIVE (NEGATIVE); URINE LEUKOCYTE ESTERASE LARGE Leu/uL (NEGATIVE); URINE PROTEIN 100 mg/dL (<30 mg/dL); URINE UROBILINOGEN 0.2 E.U./dL (<1 E.U./dL)
[2017-06-29 12:50] LABS: URINE APPEARANCE CLOUDY (CLEAR); URINE COLOR LIGHT YELLOW (YELLOW)
--- NOTE | 2017-06-29 12:50 | RAD ---
PROCEDURE: Radiographs of the pelvis. HISTORY: fall COMPARISON: 06/16/2017 FINDINGS: BONES: Pelvic Bones: Unremarkable. Hips: Grossly unremarkable. JOINTS: Sacroiliac Joints: Unremarkable. Pubic Symphysis: Unremarkable. OTHER FINDINGS: None. IMPRESSION: Unremarkable radiographs of the pelvis.
[2017-06-29] MEDS ORDERED: cefTRIAXone 1 gm 1 GM/100 ML BAG IVPB STA (12:51)
[2017-06-29 13:00] LABS: URINE BACTERIA MANY (NEG); URINE RBC TNTC /hpf (0-2); URINE WBC TNTC /hpf (0-6)
[2017-06-29] MEDS: Pantoprazole 40 mg EC Tab PO SCH (16:58)
[2017-06-29] MEDS ORDERED: Cefepime 1gm in NS 100ml 1 GM/100 ML BAG IVPB SCH ×2 (19:45→22:00)
[2017-06-29] MEDS: Sodium Chloride 0.9% 1,000 ML IV SCH (21:29)
[2017-06-29 22:47] VITALS: BMI 20.7
[2017-06-29] MEDS ORDERED: Influenza Vaccine 60 mcg/0.5 mL SYR (4YR UP) IM ONE (22:47)
[2017-06-29] MEDS ORDERED: Pneumococcal 23-Valent Vaccine IM ONE (22:47)
--- NOTE | 2017-06-30 06:05 | CON ---
DATE: 06/29/2017 The patient is in room 376 bed 1. CHIEF COMPLAINT: Weakness from several days. HISTORY OF PRESENT ILLNESS: This is a 81-year-old male with diabetes and hypertension, macular degeneration, renal disease, cerebrovascular accident, urinary retention, recent hospitalization, urinary tract infections and history of mesenteric ischemia and with superior mesenteric artery and inferior mesenteric artery angioplasty history of Strep mitis bacteremia now admitted after failure to thrive and multiple falls. REVIEW OF SYSTEMS: Reveals there is no fevers documented and no chills. The patient's weak and there is no shortness of breath or chest pain. There is no abdominal pain reported and no diarrhea or constipation. PAST MEDICAL HISTORY: Significant for hypertension, diabetes, renal disease, cerebrovascular accident, urinary retention and macular degeneration and mesenteric ischemia. PAST SURGICAL HISTORY: Significant for appendectomy. ALLERGIES: THE PATIENT HAS NO KNOWN ALLERGIES. MEDICATIONS: Reveals the patient to be on; Protonix and the patient is also was on Diflucan at home and Lipitor and Seroquel. PHYSICAL EXAMINATION GENERAL: The patient is in bed. VITAL SIGNS: Temperature of 97, heart rate of 82, blood pressure is 120/70 and respiratory rate of 16. HEENT: Unremarkable. NECK: Supple. LUNGS: Have decreased breath sounds. HEART: Normal S1, S2. ABDOMEN: Soft and nontender. LABORATORY EXAMINATION: Reveals a white count of 13,900, hemoglobin of 10, platelets of 391 and 77% granulocytosis. Coagulation is noted. BUN of 29 and creatinine of 2.9. Urinalysis is noted. Too numerous to count wbc's. There is large leukocyte esterase and urine culture in the past has been noted with yeast and the patient had a CT scan of the head which is unremarkable and chest x-ray which is reported to have been negative. The patient also had a pelvic x-ray which is noted. ASSESSMENT AND PLAN: This is a 81-year-old male with diabetes, hypertension, macular degeneration, renal disease, cerebrovascular accident, urinary retention and recent hospitalization. 1. Urinary tract infection. 2. Leukocytosis. The patient does have a large eschar on his heel. We will treat the patient with Maxipime and pending blood cultures, urine cultures and should have Podiatry workup and Vascular consultation regarding large ulcer on the heel and we will make further recommendations. Moe Zamora MD
--- NOTE | 2017-06-30 08:37 | HP ---
HISTORY OF PRESENT ILLNESS: Mr. Antonio is a 81-year-old male, has multiple admissions in the recent past. He has failure to thrive, he falls at home. Brought to ED by the family because he fell out of bed today. He has a history of recurrent UTI. UA is positive in the ER. He is confused. He is unable to provide any history. Blood count shows leukocytosis. He has chronic kidney disease, history of diabetes mellitus, fairly controlled on current medications. Renal functions have been stable in the recent past. He also has anemia; hemoglobin and hematocrit have been stable. PAST MEDICAL HISTORY: Hypertension, coronary artery disease, CVA, recurrent falls, diabetes mellitus type 2, sacral decubitus healed, cannot walk, urinary incontinence, depression. PAST SURGICAL HISTORY: Appendectomy. PERSONAL HISTORY: Never smoked. No history of alcohol abuse. SOCIAL HISTORY: Lives at home with . ALLERGIES: NO KNOWN DRUG ALLERGIES. HOME MEDICATIONS: Lipitor 10 mg at bedtime, Remeron 7.5 mg p.o. at bedtime, Seroquel 12.5 mg p.o. at bedtime, Protonix 40 mg daily. REVIEW OF SYSTEMS: As per HPI, rest of 12-point review of systems reviewed and negative. PHYSICAL EXAMINATION: GENERAL: Comfortable in bed, in no acute distress. VITAL SIGNS: Temperature 97.6, heart rate 82 per minute, respiratory rate 16 per minute, blood pressure 113/73, heart rate is 95 per minute. HEENT: Oral mucosa dry. NECK: No lymphadenopathy. CHEST: Air entry present and equal bilateral. No added sounds. CARDIOVASCULAR: S1 and S2 normal. No murmur. No gallop. ABDOMEN: Soft and nontender. No hepatosplenomegaly. EXTREMITIES: No edema. SKIN: Warm, alessandro, no pallor. PSYCH: Lethargic, agitated. DIAGNOSTIC DATA: CAT scan of the head unremarkable, no evidence of acute hemorrhage. Chest x-ray, no active disease. LABORATORY DATA: White count 13.9, hemoglobin 10.4, hematocrit 32, platelets 329. Sodium 139, potassium 4.1, BUN , creatinine 2.9, glucose 117. ASSESSMENT AND PLAN: 1. Urinary tract infection. 2. Leukocytosis. 3. Anemia. 4. Chronic kidney disease. 5. Recurrent falls. 6. Hypertension. 7. Diabetes mellitus, type 2. 8. Failure to thrive. PLAN: He will be admitted to the hospital. We will give IV hydration 60 mL an hours normal saline. We will continue Lipitor 10 mg daily, Remeron 7.5 mg p.o. at bedtime, Protonix 40 mg daily, one dose of IV ceftriaxone in the ED. We will consult Dr. Zamora for UTI. Leukocyte was likely elevated due to UTI anemia, related chronic kidney disease. Hemoglobin and hematocrit stable. Diabetes mellitus, off any antidiabetic medications. Consult social media community manager. Social issues, elderly too, cannot take care of at home. Judy Harper MD MTDD
[2017-06-30] MEDS: Pantoprazole 40 mg EC Tab PO SCH (09:33)
[2017-06-30] MEDS: Sodium Chloride 0.9% 1,000 ML IV SCH (09:33)
--- NOTE | 2017-06-30 12:31 | PN ---
DATE: 06/30/2017 SUBJECTIVE: The patient is in bed in no acute distress, and nontoxic. PHYSICAL EXAMINATION: VITAL SIGNS: Temperature is 98, blood pressure is 140/80, and respiratory rate of 16. HEENT: Examination of HEENT is unremarkable. NECK: Supple. LUNGS: Decreased breath sounds. CARDIOVASCULAR: Heart exam has normal S1 and S2. GASTROINTESTINAL: Abdominal examination is soft and nontender. LABORATORY DATA: Examination reveals a white count of 13,900, hemoglobin of 10, and platelets of 391. Coagulation is noted. Chemistries reveals a BUN of 29 and creatinine of 2.9. The urinalysis is noted. Microbiology is noted. ASSESSMENT AND PLAN: He is a 81-year-old male with diabetes mellitus, hypertension, macular degeneration, renal disease, cerebrovascular accident, urinary retention and recent hospitalization, urinary tract infections and with recent hospitalization. 1. Urinary tract infection. 2. Leukocytosis. 3. The patient does have a large eschar on his heel. Currently on Maxipime, should have podiatric and vascular consultation. After heal eschar and vascular workup and awaiting for blood cultures and urine cultures which have not been collected, we will reorder unfortunately and the patient has already received antibiotics. We will reorder it again, day number 2 of cefepime. Moe Zamora MD
[2017-06-30] MEDS ORDERED: Cefepime 1gm in NS 100ml 1 GM/100 ML BAG IVPB SCH (17:59)
[2017-06-30] MEDS: Cefepime 1gm in NS 100ml 1 GM/100 ML BAG IVPB SCH (21:37)
--- NOTE | 2017-06-30 21:40 | CP.PCM.PN ---
Subjective - Date & Time of Evaluation Date of Evaluation: 06/30/17 Time of Evaluation: 11:00 - Subjective Subjective: 06/30/2017 HISTORY OF PRESENT ILLNESS: Mr. Antonio is a 81-year-old male, has multiple admissions in the recent past. He has failure to thrive, he falls at home. Brought to ED by the family because he fell out of bed today. He has a history of recurrent UTI. UA is positive in the ER. He is confused. He is unable to provide any history. Blood count shows leukocytosis. He has chronic kidney disease, history of diabetes mellitus, fairly controlled on current medications. Renal functions have been stable in the recent past. He also has anemia; hemoglobin and hematocrit have been stable. he is drowsy today, arousable. denies pain. PAST MEDICAL HISTORY: Hypertension, coronary artery disease, CVA, recurrent falls, diabetes mellitus type 2, sacral decubitus healed, cannot walk, urinary incontinence, depression. PAST SURGICAL HISTORY: Appendectomy. PERSONAL HISTORY: Never smoked. No history of alcohol abuse. SOCIAL HISTORY: Lives at home with . ALLERGIES: NO KNOWN DRUG ALLERGIES. HOME MEDICATIONS: reviewed. REVIEW OF SYSTEMS: As per HPI, rest of 12-point review of systems reviewed and negative. PHYSICAL EXAMINATION: GENERAL: Comfortable in bed, in no acute distress. VITAL SIGNS: reviewed. HEENT: Oral mucosa dry. NECK: No lymphadenopathy. CHEST: Air entry present and equal bilateral. No added sounds. CARDIOVASCULAR: S1 and S2 normal. No murmur. No gallop. ABDOMEN: Soft and nontender. No hepatosplenomegaly. EXTREMITIES: No edema. SKIN: Warm, alessandro, no pallor. PSYCH: Lethargic, agitated. DIAGNOSTIC DATA: CAT scan of the head unremarkable, no evidence of acute hemorrhage. Chest x-ray, no active disease. LABORATORY DATA: reviewed. ASSESSMENT AND PLAN: 1. Urinary tract infection. 2. Leukocytosis. 3. Anemia. 4. Chronic kidney disease. 5. Recurrent falls. 6. Hypertension. 7. Diabetes mellitus, type 2. 8. Failure to thrive. PLAN: 1. Continue Iv hydration. Poor PO intake. tolerating nector thick puree diet. 2. IV cefepime . ct. same. 3. Drowsy, arousable. seroquel, remeron QHS. DC ativan. Has not received the dose yet. 4. Heel ulceration . consult podiatry. Judy Harper MD Objective - Vital Signs/Intake and Output Vital Signs (last 24 hours): Temp Pulse Resp BP Pulse Ox 98.4 F 85 20 148/91 H 99 06/30/17 16:00 06/30/17 16:00 06/30/17 16:00 06/30/17 16:00 06/30/17 16:00 Intake and Output: 06/30/17 07/01/17 18:59 06:59 Intake Total 480 Balance 480 - Medications Medications: Current Medications Atorvastatin Calcium (Lipitor) 10 mg PO HS [facility] Last Admin: 06/29/17 21:57 Dose: 10 mg Sodium Chloride (Sodium Chloride 0.9%) 1,000 mls @ 80 mls/hr IV .[id number] [facility] Last Admin: 06/30/17 09:33 Dose: 80 mls/hr Cefepime HCl (Maxipime 1gm) 1 gm in 100 mls @ 100 mls/hr IVPB 2200 [facility] PRN Reason: Protocol Stop: 07/08/17 22:01 Mirtazapine (Remeron) 7.5 mg PO HS [facility] Last Admin: 06/29/17 21:57 Dose: 7.5 mg Pantoprazole Sodium (Protonix Ec Tab) 40 mg PO DAILY [facility] Last Admin: 06/30/17 09:33 Dose: 40 mg Quetiapine Fumarate (Seroquel) 12.5 mg PO HS [facility] PRN Reason: Protocol Last Admin: 06/29/17 21:57 Dose: 12.5 mg - Labs Labs: PT 11.7 Seconds (9.9-11.8) 06/29/17 10:25 INR 1.08 (0.93-1.08) 06/29/17 10:25 APTT 30.1 Seconds (23.7-30.8) 06/29/17 10:25
[2017-07-01 07:19] LABS: HEMATOCRIT 27.6 % (42.0-52.0); MEAN CELL VOLUME 92.9 fl (80.0-105.0); MEAN CORPUSCULAR HEMOGLOBIN 29.6 pg (25.0-35.0); MEAN CORPUSCULAR HGB CONC 31.9 g/dl (31.0-37.0); MEAN PLATELET VOLUME 9.8 fl (7.0-11.0); RED CELL DISTRIBUTION WIDTH 15.9 % (11.5-14.5); WHITE BLOOD COUNT 8.1 10^3/ul (4.5-11.0)
[2017-07-01 07:53] LABS: ALB/GLOB RATIO 0.8 (1.1-1.8); BILIRUBIN,TOTAL 0.2 mg/dL (0.2-1.3); CALCIUM 8.1 mg/dL (8.4-10.5); POTASSIUM 4.6 mmol/L (3.6-5.0); TOTAL PROTEIN 5.3 g/dL (5.8-8.3)
--- NOTE | 2017-07-01 08:38 | CP.PCM.CON ---
<Mindi Ladd - Last Filed: 07/01/17 08:34> History of Present Illness - History of Present Illness History of Present Illness: 81 y/o male with PMHx of Hypertension, coronary artery disease, CVA, recurrent falls, diabetes mellitus type 2, sacral decubitus healed, urinary incontinence, depression seen and evaluated at bedside with attending Dr. Harmon for right plantar heel necrotic wound. Patient appears to be resting comfortably in his bed and is in NAD. Patient is a poor historian and appears to be sleeping. Patient denies of any recent F/N/V/C/SOB/chest pain today. Patient denies of any other pedal complains at this time, PMHx: Hypertension, coronary artery disease, CVA, recurrent falls, diabetes mellitus type 2, sacral decubitus healed, urinary incontinence, depression PSHx: Appendectomy Allergies: N.K.D.A Review of Systems - Constitutional Constitutional: As Per HPI Past Patient History - Infectious Disease Hx of Infectious Diseases: None - Tetanus Immunizations Tetanus Immunization: Unknown - Past Social History Smoking Status: Former Smoker - CARDIAC Hx Cardiac Disorders: Yes Hx Hypercholesterolemia: Yes Hx Hypertension: Yes Hx Peripheral Edema: Yes (+1 pitting) - PULMONARY Hx Respiratory Disorders: No - NEUROLOGICAL Hx Neurological Disorder: Yes HX Cerebrovascular Accident: Yes Hx Dementia: Yes - HEENT Hx HEENT Problems: Yes Hx Macular Degeneration: Yes Other/Comment: egd for removal of foreign body 06/08/14 - RENAL Hx Chronic Kidney Disease: No - ENDOCRINE/METABOLIC Hx Diabetes Mellitus Type 2: Yes - HEMATOLOGICAL/ONCOLOGICAL Hx Blood Disorders: No - INTEGUMENTARY Hx Dermatological Problems: Yes Hx Basil Cell: No Other/Comment: left 5th toe purple discolored, redness to buttocks/sacrum no openings, redness r hip, 4cm x 3cm necrotic right heel surrounded by red skin dry skin to r ft, thick toenails both feet - MUSCULOSKELETAL/RHEUMATOLOGICAL Hx Falls: Yes - GASTROINTESTINAL Hx Gastrointestinal Disorders: Yes (CONSTIPATION.) - GENITOURINARY/GYNECOLOGICAL Hx Genitourinary Disorders: Yes Hx Incontinence: Yes Hx Urinary Tract Infection: Yes (frequent) - PSYCHIATRIC Hx Psychophysiologic Disorder: Yes Hx Depression: Yes Hx Emotional Abuse: No Hx Physical Abuse: No - SURGICAL HISTORY Hx Appendectomy: Yes Other/Comment: sebaceous cyst removal - ANESTHESIA Hx Anesthesia: Yes Hx Anesthesia Reactions: Yes (unknown; 2017) Hx Malignant Hyperthermia: No Meds Allergies/Adverse Reactions: Allergies Allergy/AdvReac Type Severity Reaction Status Date / Time No Known Allergies Allergy Verified 06/16/17 16:30 - Medications Medications: Current Medications Atorvastatin Calcium (Lipitor) 10 mg PO HS [facility] Last Admin: 06/30/17 21:40 Dose: 10 mg Sodium Chloride (Sodium Chloride 0.9%) 1,000 mls @ 80 mls/hr IV .[id number] [facility] Last Admin: 06/30/17 09:33 Dose: 80 mls/hr Cefepime HCl (Maxipime 1gm) 1 gm in 100 mls @ 100 mls/hr IVPB 2200 [facility] PRN Reason: Protocol Stop: 07/08/17 22:01 Last Admin: 06/30/17 21:37 Dose: 100 mls/hr Mirtazapine (Remeron) 7.5 mg PO HS [facility] Last Admin: 06/30/17 21:42 Dose: 7.5 mg Pantoprazole Sodium (Protonix Ec Tab) 40 mg PO DAILY [facility] Last Admin: 06/30/17 09:33 Dose: 40 mg Quetiapine Fumarate (Seroquel) 12.5 mg PO HS [facility] PRN Reason: Protocol Last Admin: 06/30/17 21:41 Dose: 12.5 mg Physical Exam - Constitutional Appears: Well, Non-toxic, No Acute Distress - Extremities Exam Additional comments: Bilateral lower extremity exam: VASC: DP/PT pulses are faintly palpable 1/4 b/l, CONCRETE PAVEMENT INSTALLER: < 4 sec to all digits, no pitting or non pitting edema noted, Temp gradient: warm to cool from proximal to distal DERM: Dry necrotic eschar noted on the right plantar heel, hyperpigmented skin noted on the heel measuring approximately 2.5 cm x 2.0 cm, no active drainage, no probe to bone, no tunneling, no undermining, no surrounding erythema, no clinical suspicion of infection NEURO: Protective sensation diminished ORTHO: tenderness on palpation of the plantar heel of the right foot - Neurological Exam Neurological exam: Alert, Oriented x3 - Psychiatric Exam Psychiatric exam: Normal Affect, Normal Mood Results - Vital Signs Recent Vital Signs: Last Vital Signs Temp 98.4 F 06/30/17 16:00 Pulse 85 06/30/17 16:00 Resp 20 06/30/17 16:00 BP 148/91 H 06/30/17 16:00 Pulse Ox 99 06/30/17 16:00 - Labs Result Diagrams: 07/01/17 06:30 07/01/17 06:30 Labs: Laboratory Results - last 24 hr 07/01/17 07/01/17 06:30 06:30 WBC 8.1 D RBC 2.97 L Hgb 8.8 L Hct 27.6 L MCV 92.9 MCH 29.6 MCHC 31.9 RDW 15.9 H Plt Count 316 MPV 9.8 Sodium 140 Potassium 4.6 Chloride 111 H Carbon Dioxide 22 Anion Gap 12 BUN 26 H Creatinine 2.5 H Est GFR ( Amer) 30 Est GFR (Non-Af Amer) 25 Random Glucose 98 Calcium 8.1 L Total Bilirubin 0.2 AST 19 ALT 20 Alkaline Phosphatase 53 Total Protein 5.3 L Albumin 2.3 L Globulin 3.0 Albumin/Globulin Ratio 0.8 L Assessment & Plan - Assessment and Plan (Free Text) Assessment: 81 y/o male seen at bedside for right foot plantar heel necrotic pressure ulcer (jimenez grade 4) Plan: Patient seen and evaluated at bedside with attending Dr. Harmon Vitals and labs reviewed (afebrile, WBC @ 8.1) Dressing applied using ABD, 4x4 and kerlix Santyl ordered Multipodus booths ordered Podiatry to follow patient while in house Thank you for the podiatry consult - Date & Time Date: 07/01/17 Time: 08:51 <Jim Harmon - Last Filed: 07/03/17 10:13> Meds - Medications Medications: Current Medications Alprazolam (Xanax) 0.5 mg PO Q6 PRN; Protocol PRN Reason: Agitation Last Admin: 07/02/17 19:18 Dose: 0.5 mg Atorvastatin Calcium (Lipitor) 10 mg PO HS [facility] Last Admin: 07/02/17 21:13 Dose: 10 mg Collagenase (Santyl) 0 gm TOP DAILY [facility] Last Admin: 07/02/17 10:53 Dose: 1 unit Cefepime HCl (Maxipime 1gm) 1 gm in 100 mls @ 100 mls/hr IVPB 2200 [facility] PRN Reason: Protocol Stop: 07/08/17 22:01 Last Admin: 07/02/17 21:14 Dose: Not Given Sodium Chloride (Sodium Chloride 0.9%) 1,000 mls @ 50 mls/hr IV .Q20H [facility] Last Admin: 07/02/17 21:15 Dose: Not Given Mirtazapine (Remeron) 7.5 mg PO HS [facility] Last Admin: 07/02/17 21:14 Dose: 7.5 mg Pantoprazole Sodium (Protonix Ec Tab) 40 mg PO DAILY [facility] Last Admin: 07/03/17 09:16 Dose: 40 mg Quetiapine Fumarate (Seroquel) 12.5 mg PO HS [facility] PRN Reason: Protocol Last Admin: 07/02/17 21:14 Dose: 12.5 mg Results - Vital Signs Recent Vital Signs: Last Vital Signs Temp 97.7 F 07/02/17 06:00 Pulse 80 07/02/17 06:00 Resp 98 H 07/02/17 06:00 BP 126/81 07/02/17 06:00 Pulse Ox 20 L 07/02/17 06:00 - Labs Result Diagrams: 07/02/17 06:30 07/02/17 06:30 Attending/Attestation - Attestation I have personally seen and examined this patient.: Yes I have fully participated in the care of the patient.: Yes I have reviewed all pertinent clinical information: Yes
--- NOTE | 2017-07-01 09:28 | US ---
PROCEDURE: Lower extremity SERVANDO exam HISTORY: Peripheral vascular disease with pain and ulceration. Diabetes PHYSICIAN(S): Kevin Pardo MD. FINDINGS: The resting SERVANDO's are normal: right, 1.25and left, 1.19 The brachial systolic pressures are symmetric. The low thigh pressures and waveforms are relatively normal. The calf PVR waveforms augment normally. The ankle and metatarsal waveforms are relatively normal and symmetric. No significant pressure gradients are noted across the lower legs. IMPRESSION: 1. Relatively normal SERVANDO and PVR examination at rest.
[2017-07-01] MEDS: Collagenase 250 Units/gm Ointment(30 gm) TOP SCH (09:50)
[2017-07-01] MEDS: Pantoprazole 40 mg EC Tab PO SCH (09:50)
[2017-07-01] MEDS ORDERED: Collagenase 250 Units/gm Ointment(30 gm) TOP SCH (10:00)
--- NOTE | 2017-07-01 10:08 | RAD ---
PROCEDURE: Left Foot Radiographs. HISTORY: left heel ulcer COMPARISON: None. FINDINGS: BONES: No evidence of acute displaced fracture nor dislocation. No definitive radiographic evidence of cortical destructive changes. There is a plantar surface calcaneal enthesophyte. . Mild diffuse demineralization JOINTS: Mild hallux valgus deformity with the slight overgrowth of the head of the 1st metatarsal and minor DJD 1st MTP joint. SOFT TISSUES: No subcutaneous emphysema seen. Vascular calcifications are present OTHER FINDINGS: None. IMPRESSION: No evidence of acute displaced fracture nor dislocation. No obvious cortical destructive changes. If cellulitis or early osteomyelitis suspected clinically consider followup MRI of the left foot
[2017-07-01] MEDS: Sodium Chloride 0.9% 1,000 ML IV SCH (10:50)
--- NOTE | 2017-07-01 15:36 | PN ---
DATE: 07/01/2017 SUBJECTIVE: The patient is in no acute distress, had an uneventful night. No fevers, no chills. OBJECTIVE: VITAL SIGNS: On exam, temperature is 98, blood pressure is 140/80, respiratory rate of 20. HEENT: Examination is unremarkable. NECK: Supple. LUNGS: Have decreased breath sounds. HEART: Exam is normal S1, S2. ABDOMEN: Examination is soft, nontender. LABORATORY EXAMINATION: Reveals a white count of 8.1, hemoglobin of 8, platelets of 316. Chemistry reveals a BUN of 26, creatinine of 2.5. Urinalysis is noted in the urine. Blood cultures are no growth. The urine culture is pending, actually was not collected. The patient had an x-ray of the foot and that was read by Dr. Tino Alejandre. Review of medications revealed the patient to be on cefepime. ASSESSMENT AND PLAN: A 81-year-old male with diabetes mellitus, hypertension, macular degeneration, renal disease, cerebrovascular accident, urinary retention, recent hospitalization, urinary tract infection with recent hospitalization. 1. The patient has urinary tract infection. 2. Leukocytosis and a large eschar on the heel. 3. The patient is currently on Maxipime, still awaiting for urine culture, today is day #3 of Maxipime. No urine culture was sent and the patient's white count has improved down to 8.1. Moe Zamora MD
[2017-07-01] MEDS: Cefepime 1gm in NS 100ml 1 GM/100 ML BAG IVPB SCH (21:02)
--- NOTE | 2017-07-02 01:41 | PN ---
DATE: SUBJECTIVE: The patient is a 81-year-old, seen and examined, resting comfortably, not in any distress. PHYSICAL EXAMINATION VITAL SIGNS: Afebrile, pulse 70, respiration 20, blood pressure 140/80. LUNGS: Bilateral fair airflow. No rhonchi or crackles. HEART: S1 and S2 audible. ABDOMEN: Soft, nontender. No rebound. No guarding. NEUROLOGIC: He is awake and alert, confused, disoriented. EXTREMITIES: Bilateral legs no edema. The right foot and ankle is wrapped in the dressing done by the Drywall Mechanic. The patient has right plantar heel necrotic wound, wrapped in the dressing. LABORATORY DATA: WBC is 8.1, hemoglobin 8.8, hematocrit 27.6, platelets 316. Chemistries; sodium 140, potassium 4.6, chloride 111, CO2 22, BUN 26, creatinine 2.5, blood sugar of 98. Blood cultures are negative. Urinalysis shows pyuria with large blood and large leukocyte with too numerous to count wbc and rbc's. ASSESSMENT: 1. Right foot necrotic ulcer. 2. Peripheral vascular disease. 3. Hypertension. 4. Non-insulin dependent diabetes. 5. Chronic kidney disease. 6. History of cerebrovascular accident. 7. Urinary tract infection. 8. Recurrent fall. 9. Chronic anemia. PLAN: The patient is currently on Maxipime 1 g once a day. He is getting local wound care. He is on Remeron and Seroquel. He is on IV fluids. Discussed with the nurse about his oral intake, he seems to be eating decently. I will discontinue IV fluids. Drew Garcia MD
[2017-07-02] MEDS: Sodium Chloride 0.9% 1,000 ML IV SCH ×2 (03:58→21:15)
[2017-07-02 07:24] LABS: BASO # 0.1 K/mm3 (0.0-2.0); BASO % 1.2 % (0.0-3.0); EOS # 0.7 (0.0-0.7); EOS % 7.9 % (1.5-5.0); GRAN # 5.22 (1.4-6.5); GRAN % 60.8 % (50.0-68.0); HEMATOCRIT 27.9 % (42.0-52.0); LYMPH # 1.9 (1.2-3.4); LYMPH % 21.8 % (22.0-35.0); MEAN CELL VOLUME 91.8 fl (80.0-105.0); MEAN CORPUSCULAR HEMOGLOBIN 29.6 pg (25.0-35.0); MEAN CORPUSCULAR HGB CONC 32.3 g/dl (31.0-37.0); MEAN PLATELET VOLUME 9.8 fl (7.0-11.0); MONO # 0.7 (0.1-0.6); MONO % 8.3 % (1.0-6.0); RED CELL DISTRIBUTION WIDTH 15.8 % (11.5-14.5); WHITE BLOOD COUNT 8.6 10^3/ul (4.5-11.0)
[2017-07-02 07:32] LABS: BILIRUBIN,TOTAL 0.3 mg/dL (0.2-1.3); CALCIUM 8.1 mg/dL (8.4-10.5); POTASSIUM 4.7 mmol/L (3.6-5.0); TOTAL PROTEIN 5.4 g/dL (5.8-8.3)
[2017-07-02 07:33] LABS: ALB/GLOB RATIO 0.7 (1.1-1.8)
[2017-07-02] MEDS: Pantoprazole 40 mg EC Tab PO SCH (09:45)
[2017-07-02] MEDS: Collagenase 250 Units/gm Ointment(30 gm) TOP SCH (10:53)
--- NOTE | 2017-07-02 12:26 | CP.PCM.PN ---
<Mindi Ladd - Last Filed: 07/02/17 12:22> Subjective - Date & Time of Evaluation Date of Evaluation: 07/02/17 Time of Evaluation: 12:22 - Subjective Subjective: 81 y/o male seen and evaluated at bedside for right plantar heel ulcer. Patient appears to be resting comfortably in his bed and denies of any acute overnight events. Patient is AAOx3 and is in NAD. Patient denies of any pain over night to his right foot. Patient denies of any F/N/V/C/SOB/chest pain today. Objective - Vital Signs/Intake and Output Vital Signs (last 24 hours): Temp Pulse Resp BP Pulse Ox 97.7 F 80 98 H 126/81 20 L 07/02/17 06:00 07/02/17 06:00 07/02/17 06:00 07/02/17 06:00 07/02/17 06:00 Intake and Output: 07/02/17 07/02/17 06:59 18:59 Intake Total 180 Output Total 0 Balance 180 - Medications Medications: Current Medications Atorvastatin Calcium (Lipitor) 10 mg PO HS [facility] Last Admin: 07/01/17 21:02 Dose: 10 mg Collagenase (Santyl) 0 gm TOP DAILY [facility] Last Admin: 07/02/17 10:53 Dose: 1 unit Sodium Chloride (Sodium Chloride 0.9%) 1,000 mls @ 80 mls/hr IV .[id number] [facility] Last Admin: 07/02/17 03:58 Dose: 80 mls/hr Cefepime HCl (Maxipime 1gm) 1 gm in 100 mls @ 100 mls/hr IVPB 2200 [facility] PRN Reason: Protocol Stop: 07/08/17 22:01 Last Admin: 07/01/17 21:02 Dose: 100 mls/hr Mirtazapine (Remeron) 7.5 mg PO HS [facility] Last Admin: 07/01/17 21:04 Dose: 7.5 mg Pantoprazole Sodium (Protonix Ec Tab) 40 mg PO DAILY [facility] Last Admin: 07/02/17 09:45 Dose: 40 mg Quetiapine Fumarate (Seroquel) 12.5 mg PO HS [facility] PRN Reason: Protocol Last Admin: 07/01/17 21:07 Dose: 12.5 mg - Labs Labs: 07/02/17 06:30 07/02/17 06:30 PT 11.7 Seconds (9.9-11.8) 06/29/17 10:25 INR 1.08 (0.93-1.08) 06/29/17 10:25 APTT 30.1 Seconds (23.7-30.8) 06/29/17 10:25 - Constitutional Appears: Well, Non-toxic, No Acute Distress - Extremities Exam Additional comments: Bilateral lower extremity exam: VASC: DP/PT pulses are faintly palpable 1/4 b/l, MUSEUM OR ZOO DIRECTOR: < 4 sec to all digits, no pitting or non pitting edema noted, Temp gradient: warm to cool from proximal to distal DERM: Dry necrotic eschar noted on the right plantar heel, hyperpigmented skin noted on the heel measuring approximately 2.5 cm x 2.0 cm, no active drainage, no probe to bone, no tunneling, no undermining, no surrounding erythema, no clinical suspicion of infection NEURO: Protective sensation diminished ORTHO: tenderness on palpation of the plantar heel of the right foot - Neurological Exam Neurological Exam: Alert, Awake, Oriented x3 - Psychiatric Exam Psychiatric exam: Normal Affect, Normal Mood Assessment and Plan - Assessment and Plan (Free Text) Assessment: 81 y/o male seen at bedside for right foot plantar heel necrotic pressure ulcer (jimenez grade 4) Plan: Patient seen and evaluated at bedside Patient discussed in details with attending Dr. Harmon Vitals and labs reviewed (afebrile, WBC @ 8.6) Dressing applied using santyl, ABD, 4x4 and kerlix Multipodus boots applied to b/l feet Podiatry to follow patient while in house <Jim Harmon - Last Filed: 07/03/17 10:16> Objective - Vital Signs/Intake and Output Vital Signs (last 24 hours): Temp Pulse Resp BP Pulse Ox 97.7 F 80 98 H 126/81 20 L 07/02/17 06:00 07/02/17 06:00 07/02/17 06:00 07/02/17 06:00 07/02/17 06:00 Intake and Output: 07/03/17 07/03/17 06:59 18:59 Intake Total 180 Balance 180 - Medications Medications: Current Medications Alprazolam (Xanax) 0.5 mg PO Q6 PRN; Protocol PRN Reason: Agitation Last Admin: 07/02/17 19:18 Dose: 0.5 mg Atorvastatin Calcium (Lipitor) 10 mg PO HS [facility] Last Admin: 07/02/17 21:13 Dose: 10 mg Collagenase (Santyl) 0 gm TOP DAILY [facility] Last Admin: 07/02/17 10:53 Dose: 1 unit Cefepime HCl (Maxipime 1gm) 1 gm in 100 mls @ 100 mls/hr IVPB 2200 [facility] PRN Reason: Protocol Stop: 07/08/17 22:01 Last Admin: 07/02/17 21:14 Dose: Not Given Sodium Chloride (Sodium Chloride 0.9%) 1,000 mls @ 50 mls/hr IV .Q20H [facility] Last Admin: 07/02/17 21:15 Dose: Not Given Mirtazapine (Remeron) 7.5 mg PO HS [facility] Last Admin: 07/02/17 21:14 Dose: 7.5 mg Pantoprazole Sodium (Protonix Ec Tab) 40 mg PO DAILY [facility] Last Admin: 07/03/17 09:16 Dose: 40 mg Quetiapine Fumarate (Seroquel) 12.5 mg PO HS [facility] PRN Reason: Protocol Last Admin: 07/02/17 21:14 Dose: 12.5 mg - Labs Labs: 07/02/17 06:30 07/02/17 06:30 PT 11.7 Seconds (9.9-11.8) 06/29/17 10:25 INR 1.08 (0.93-1.08) 06/29/17 10:25 APTT 30.1 Seconds (23.7-30.8) 06/29/17 10:25 Attending/Attestation - Attestation I have personally seen and examined this patient.: Yes I have fully participated in the care of the patient.: Yes I have reviewed all pertinent clinical information, including history, physical exam and plan: Yes
--- NOTE | 2017-07-02 14:13 | PN ---
DATE: 07/02/2017 SUBJECTIVE: The patient is in bed, in no acute distress, nontoxic. PHYSICAL EXAMINATION: VITAL SIGNS: Temperature is 98, blood pressure is 120/80, respiratory rate of 18. HEENT: Unremarkable. NECK: Supple. LUNGS: Have decreased breath sounds. HEART: Normal S1, S2. ABDOMEN: Soft, nontender. No organomegaly. No rebound. No masses. LABORATORY EXAMINATION: Reveals a white count of 8.6, hemoglobin of 9, platelets of 322. Coagulation is noted. Chemistries reveals a BUN of 25, creatinine of 2.3. Urinalysis is noted. Microbiology reveals a Gram-negative kyrie in the right foot.. The identification sensitivity is pending. The blood cultures are no growth. Review of orders reveals the patient to be on cefepime. Dr. Garcia's note is reviewed. The patient had an x-ray of the right foot, results are pending. ASSESSMENT AND PLAN: This is a 81-year-old male with diabetes, hypertension, macular degeneration, renal disease, cerebrovascular accident, urinary retention and recent hospitalization with urinary tract infection. The patient has urinary tract infection and gram-negative kyrie and a foot culture and a large eschar on the heel on Maxipime, awaiting for urine culture, today is day number 4 of Maxipime, also awaiting for urine culture and identification of gram-negative kyrie from the foot and podiatry or vascular consultation and vascular workup. Day number 4 of Maxipime. Should rule out underlying osteomyelitis. Moe Zamora MD
--- NOTE | 2017-07-02 15:23 | RAD ---
PROCEDURE: Right Foot Radiographs. HISTORY: heel ulcer COMPARISON: None. FINDINGS: BONES: No evidence of acute displaced fracture nor dislocation. No definitive evidence of cortical destructive changes. JOINTS: Marked hallux valgus deformity with significant overgrowth of the head of the 1st metatarsal and DJD 1st MTP joint. There is also slight flexion deformity at the level of the 2nd MTP joint. . Prominent plantar surface calcaneal enthesophyte. SOFT TISSUES: No definitive evidence of subcutaneous emphysema. Vascular calcifications are present. If cellulitis or early osteomyelitis suspected clinically recommend followup MRI. OTHER FINDINGS: None. IMPRESSION: No evidence of acute displaced fracture nor dislocation. No definitive cortical destructive changes. No evidence of subcutaneous emphysema. Cellulitis or early osteomyelitis suspected clinically recommend followup MRI. Marked hallux valgus deformity with significant overgrowth head 1st metatarsal and DJD 1st MTP joint
--- NOTE | 2017-07-02 20:15 | PN ---
SUBJECTIVE: The patient is 81 years old, seen and examined, resting comfortable, not in any distress, eating fair. PHYSICAL EXAMINATION: VITAL SIGNS: Afebrile, pulse 80, respiration 20, blood pressure 126/81. LUNGS: Bilateral fair airflow. No rhonchi or crackle. HEART: S1 and S2 audible. ABDOMEN: Soft and nontender. No rebound. No guarding. NEUROLOGIC: He is awake, alert, confusion, disoriented. Right foot is in the dressing. LABORATORY DATA: WBC is 8.6, hemoglobin 9.0, hematocrit 27.9, platelets of 322. Chemistries: Sodium 136, potassium 4.7, chloride 110, CO2 of 23, BUN 25, creatinine 2.3, blood sugar of 80. ASSESSMENT: 1. Mild dementia. 2. Right foot necrotic ulcer. 3. Peripheral vascular disease. 4. History of old cerebrovascular accident. 5. Chronic kidney disease. 6. Izn-rfytqfc-flatqfiar diabetes. 7. Hypertension. 8. Gram-negative wound infection, identification to follow. PLAN: So at this point, the patient is on Maxipime, he is getting local wound care by poultry dressing worker. I will cut down his fluids to 50 mL. Follow up his electrolytes in a.m. Drew Garcia MD
[2017-07-02] MEDS: Cefepime 1gm in NS 100ml 1 GM/100 ML BAG IVPB SCH (21:14)
[2017-07-03] MEDS: Pantoprazole 40 mg EC Tab PO SCH (09:16)
--- NOTE | 2017-07-03 09:36 | CP.PCM.PN ---
<Desmond Eli - Last Filed: 07/03/17 09:32> Subjective - Date & Time of Evaluation Date of Evaluation: 07/03/17 Time of Evaluation: 09:32 - Subjective Subjective: Podiatry Progress note for Dr. Harmon: 81 year old male seen and evaluated at bedside for right plantar heel ulcer. Patient appears to be resting comfortably in his bed, AAOx3 and in NAD. Patient denies of any pain over night to his right foot. Dressing is clean, dry, and intact with no strikethrough noted. Patient denies of any F/N/V/C/SOB/chest pain today. Objective - Vital Signs/Intake and Output Vital Signs (last 24 hours): Temp Pulse Resp BP Pulse Ox 97.7 F 80 98 H 126/81 20 L 07/02/17 06:00 07/02/17 06:00 07/02/17 06:00 07/02/17 06:00 07/02/17 06:00 Intake and Output: 07/03/17 07/03/17 06:59 18:59 Intake Total 180 Balance 180 - Medications Medications: Current Medications Alprazolam (Xanax) 0.5 mg PO Q6 PRN; Protocol PRN Reason: Agitation Last Admin: 07/02/17 19:18 Dose: 0.5 mg Atorvastatin Calcium (Lipitor) 10 mg PO HS OMAR Last Admin: 07/02/17 21:13 Dose: 10 mg Collagenase (Santyl) 0 gm TOP DAILY OMAR Last Admin: 07/02/17 10:53 Dose: 1 unit Cefepime HCl (Maxipime 1gm) 1 gm in 100 mls @ 100 mls/hr IVPB 2200 OMAR PRN Reason: Protocol Stop: 07/08/17 22:01 Last Admin: 07/02/17 21:14 Dose: Not Given Sodium Chloride (Sodium Chloride 0.9%) 1,000 mls @ 50 mls/hr IV .Q20H OMAR Last Admin: 07/02/17 21:15 Dose: Not Given Mirtazapine (Remeron) 7.5 mg PO HS OMAR Last Admin: 07/02/17 21:14 Dose: 7.5 mg Pantoprazole Sodium (Protonix Ec Tab) 40 mg PO DAILY OMAR Last Admin: 07/03/17 09:16 Dose: 40 mg Quetiapine Fumarate (Seroquel) 12.5 mg PO HS OMAR PRN Reason: Protocol Last Admin: 07/02/17 21:14 Dose: 12.5 mg - Labs Labs: 07/02/17 06:30 07/02/17 06:30 PT 11.7 Seconds (9.9-11.8) 06/29/17 10:25 INR 1.08 (0.93-1.08) 06/29/17 10:25 APTT 30.1 Seconds (23.7-30.8) 06/29/17 10:25 - Constitutional Appears: Well, Non-toxic, No Acute Distress - Extremities Exam Additional comments: Bilateral lower extremity exam: VASC: DP/PT pulses are faintly palpable 1/4 b/l, MATERNITY FLOOR SUPERVISOR: < 4 sec to all digits, no pitting or non pitting edema noted, Temp gradient: warm to cool from proximal to distal DERM: Dry necrotic eschar noted on the right plantar heel, hyperpigmented skin noted on the heel measuring approximately 2.5 cm x 2.0 cm, no active drainage, no probe to bone, no tunneling, no undermining, no surrounding erythema, no clinical suspicion of infection NEURO: Protective sensation diminished ORTHO: tenderness on palpation of the plantar heel of the right foot - Neurological Exam Neurological Exam: Alert, Awake, Oriented x3 - Psychiatric Exam Psychiatric exam: Normal Affect, Normal Mood Assessment and Plan - Assessment and Plan (Free Text) Assessment: 81 y/o male seen at bedside for right foot plantar heel necrotic pressure ulcer (Ramos 4) Plan: Patient seen and evaluated at bedside Patient discussed in details with attending Dr. Harmon Vitals and labs reviewed (afebrile, WBC @ 8.6 on 07/02/17) Dressing applied using santyl, ABD, 4x4 and kerlix Wound culture results- pseudomonas aeruginosa C/W abx per team Multipodus boots applied to b/l feet Podiatry to follow patient while in house <Jim Harmon - Last Filed: 07/03/17 10:18> Objective - Vital Signs/Intake and Output Vital Signs (last 24 hours): Temp Pulse Resp BP Pulse Ox 97.7 F 80 98 H 126/81 20 L 07/02/17 06:00 07/02/17 06:00 07/02/17 06:00 07/02/17 06:00 07/02/17 06:00 Intake and Output: 07/03/17 07/03/17 06:59 18:59 Intake Total 180 Balance 180 - Medications Medications: Current Medications Alprazolam (Xanax) 0.5 mg PO Q6 PRN; Protocol PRN Reason: Agitation Last Admin: 07/02/17 19:18 Dose: 0.5 mg Atorvastatin Calcium (Lipitor) 10 mg PO HS OMAR Last Admin: 07/02/17 21:13 Dose: 10 mg Collagenase (Santyl) 0 gm TOP DAILY OMAR Last Admin: 07/02/17 10:53 Dose: 1 unit Cefepime HCl (Maxipime 1gm) 1 gm in 100 mls @ 100 mls/hr IVPB 2200 OMAR PRN Reason: Protocol Stop: 07/08/17 22:01 Last Admin: 07/02/17 21:14 Dose: Not Given Sodium Chloride (Sodium Chloride 0.9%) 1,000 mls @ 50 mls/hr IV .Q20H OMAR Last Admin: 07/02/17 21:15 Dose: Not Given Mirtazapine (Remeron) 7.5 mg PO HS OMAR Last Admin: 07/02/17 21:14 Dose: 7.5 mg Pantoprazole Sodium (Protonix Ec Tab) 40 mg PO DAILY OMAR Last Admin: 07/03/17 09:16 Dose: 40 mg Quetiapine Fumarate (Seroquel) 12.5 mg PO HS OMAR PRN Reason: Protocol Last Admin: 07/02/17 21:14 Dose: 12.5 mg - Labs Labs: 07/02/17 06:30 07/02/17 06:30 PT 11.7 Seconds (9.9-11.8) 06/29/17 10:25 INR 1.08 (0.93-1.08) 06/29/17 10:25 APTT 30.1 Seconds (23.7-30.8) 06/29/17 10:25 Attending/Attestation - Attestation I have personally seen and examined this patient.: Yes I have fully participated in the care of the patient.: Yes I have reviewed all pertinent clinical information, including history, physical exam and plan: Yes
[2017-07-03] MEDS: Collagenase 250 Units/gm Ointment(30 gm) TOP SCH (10:17)
--- NOTE | 2017-07-03 12:13 | CP.PCM.PN ---
<Tabatha Connelly - Last Filed: 07/03/17 13:42> Subjective - Date & Time of Evaluation Date of Evaluation: 07/03/17 Time of Evaluation: 12:13 - Subjective Subjective: PGY-[address] Newman Patient seen and examined at bedside. No acute distress. Patient AxO x1 to person. Patient has no complaints. Patient denies chest pain, sob, fever, chills , abd pain, n/v/d/c. Patient is tolerating diet. Objective - Vital Signs/Intake and Output Vital Signs (last 24 hours): Temp Pulse Resp BP Pulse Ox 98.7 F 90 16 158/99 H 97 07/03/17 06:00 07/03/17 06:00 07/03/17 06:00 07/03/17 06:00 07/03/17 06:00 Intake and Output: 07/03/17 07/03/17 06:59 18:59 Intake Total 180 Balance 180 - Medications Medications: Current Medications Alprazolam (Xanax) 0.5 mg PO Q6 PRN; Protocol PRN Reason: Agitation Last Admin: 07/02/17 19:18 Dose: 0.5 mg Atorvastatin Calcium (Lipitor) 10 mg PO HS OMAR Last Admin: 07/02/17 21:13 Dose: 10 mg Collagenase (Santyl) 0 gm TOP DAILY OMAR Last Admin: 07/03/17 10:17 Dose: 1 applic Sodium Chloride (Sodium Chloride 0.9%) 1,000 mls @ 50 mls/hr IV .Q20H OMAR Last Admin: 07/02/17 21:15 Dose: Not Given Meropenem 1g/NS 100mL IVPB (Meropenem 1g/Ns 100ml Ivpb) 1 gm in 100 mls @ 100 mls/hr IVPB Q12 OMAR PRN Reason: Protocol Stop: 07/10/17 12:01 Mirtazapine (Remeron) 7.5 mg PO HS OMAR Last Admin: 07/02/17 21:14 Dose: 7.5 mg Pantoprazole Sodium (Protonix Ec Tab) 40 mg PO DAILY OMAR Last Admin: 07/03/17 09:16 Dose: 40 mg Quetiapine Fumarate (Seroquel) 12.5 mg PO HS OMAR PRN Reason: Protocol Last Admin: 07/02/17 21:14 Dose: 12.5 mg - Labs Labs: 07/02/17 06:30 07/02/17 06:30 PT 11.7 Seconds (9.9-11.8) 06/29/17 10:25 INR 1.08 (0.93-1.08) 06/29/17 10:25 APTT 30.1 Seconds (23.7-30.8) 06/29/17 10:25 - Constitutional Appears: No Acute Distress - Head Exam Head Exam: ATRAUMATIC, NORMAL INSPECTION, NORMOCEPHALIC - Eye Exam Eye Exam: EOMI, Normal appearance - ENT Exam ENT Exam: Mucous Membranes Moist - Respiratory Exam Respiratory Exam: Clear to Ausculation Bilateral, NORMAL BREATHING PATTERN. absent: Decreased Breath Sounds, Rales, Rhonchi, Wheezes, Respiratory Distress - Cardiovascular Exam Cardiovascular Exam: REGULAR RHYTHM, +S1, +S2. absent: Tachycardia, Murmur - GI/Abdominal Exam GI & Abdominal Exam: Soft, Normal Bowel Sounds. absent: Distended, Firm, Guarding, Tenderness - Extremities Exam Extremities Exam: absent: Pedal Edema Additional comments: right foot dressed, dressing clean, dry and intact - Neurological Exam Neurological Exam: Alert, Awake. absent: Oriented x3 - Skin Skin Exam: Dry, Intact, Normal Color, Warm Assessment and Plan - Assessment and Plan (Free Text) Assessment: 81 yo male with PMH of dementia, PVD, CVA, CKD stage III, DMII, HTN presents with failure to thrive and frequent falls. Plan: 1. right foot necrotic ulcer - wound culture positive for gram neg rods - blood culture negative - cont maxipime - IVF NS @50cc/ho - bone scan r/o osteomyelitis - ID following - baseball hand sewer following - case manger for placement 2. dementia - cont home meds seroquel, remeron - xanax prn 3. h/o HTN - controlled 4. h/o DMII - controlled - not on any medications at home - cont to monitor <Jakob Newman S - Last Filed: 07/03/17 17:15> Objective - Vital Signs/Intake and Output Vital Signs (last 24 hours): Temp Pulse Resp BP Pulse Ox 98.7 F 90 16 158/99 H 97 07/03/17 06:00 07/03/17 06:00 07/03/17 06:00 07/03/17 06:00 07/03/17 06:00 Intake and Output: 07/03/17 07/03/17 06:59 18:59 Intake Total 180 720 Balance 180 720 - Medications Medications: Current Medications Alprazolam (Xanax) 0.5 mg PO Q6 PRN; Protocol PRN Reason: Agitation Last Admin: 07/03/17 13:48 Dose: 0.5 mg Atorvastatin Calcium (Lipitor) 10 mg PO HS OMAR Last Admin: 07/02/17 21:13 Dose: 10 mg Collagenase (Santyl) 0 gm TOP DAILY OMAR Last Admin: 07/03/17 10:17 Dose: 1 applic Sodium Chloride (Sodium Chloride 0.9%) 1,000 mls @ 50 mls/hr IV .Q20H OMAR Last Admin: 07/03/17 13:59 Dose: Not Given Meropenem 1g/NS 100mL IVPB (Meropenem 1g/Ns 100ml Ivpb) 1 gm in 100 mls @ 100 mls/hr IVPB Q12 OMAR PRN Reason: Protocol Stop: 07/10/17 12:01 Last Admin: 07/03/17 13:36 Dose: Not Given Mirtazapine (Remeron) 7.5 mg PO HS OMAR Last Admin: 07/02/17 21:14 Dose: 7.5 mg Pantoprazole Sodium (Protonix Ec Tab) 40 mg PO DAILY [facility] Last Admin: 07/03/17 09:16 Dose: 40 mg Quetiapine Fumarate (Seroquel) 12.5 mg PO HS OMAR PRN Reason: Protocol Last Admin: 07/02/17 21:14 Dose: 12.5 mg - Labs Labs: 07/02/17 06:30 07/02/17 06:30 PT 11.7 Seconds (9.9-11.8) 06/29/17 10:25 INR 1.08 (0.93-1.08) 06/29/17 10:25 APTT 30.1 Seconds (23.7-30.8) 06/29/17 10:25 Assessment and Plan - Assessment and Plan (Free Text) Plan: Pt seen and examined. Agree with above note of resident. Meds and labs reviewed. Pt should be in NH as family not able to take care of his needs. Cx pending. Poor IV access. Podiatry following and plan reviewed. Spoke to PT.
[2017-07-03] MEDS: Meropenem 1g/NS 100mL IVPB 1 GM/100 ML PIGGYBACK IVPB SCH (13:36)
[2017-07-03] MEDS: Sodium Chloride 0.9% 1,000 ML IV SCH (13:59)
--- NOTE | 2017-07-03 14:39 | CP.PCM.PN ---
Subjective - Date & Time of Evaluation Date of Evaluation: 07/03/17 Time of Evaluation: 12:45 - Subjective Subjective: Not in distress, afebrile. Objective - Vital Signs/Intake and Output Vital Signs (last 24 hours): Temp Pulse Resp BP Pulse Ox 98.7 F 90 16 158/99 H 97 07/03/17 06:00 07/03/17 06:00 07/03/17 06:00 07/03/17 06:00 07/03/17 06:00 Intake and Output: 07/03/17 07/03/17 06:59 18:59 Intake Total 180 Balance 180 - Medications Medications: Current Medications Alprazolam (Xanax) 0.5 mg PO Q6 PRN; Protocol PRN Reason: Agitation Last Admin: 07/02/17 19:18 Dose: 0.5 mg Atorvastatin Calcium (Lipitor) 10 mg PO HS OMAR Last Admin: 07/02/17 21:13 Dose: 10 mg Collagenase (Santyl) 0 gm TOP DAILY OMAR Last Admin: 07/03/17 10:17 Dose: 1 applic Sodium Chloride (Sodium Chloride 0.9%) 1,000 mls @ 50 mls/hr IV .Q20H OMAR Last Admin: 07/02/17 21:15 Dose: Not Given Meropenem 1g/NS 100mL IVPB (Meropenem 1g/Ns 100ml Ivpb) 1 gm in 100 mls @ 100 mls/hr IVPB Q12 OMAR PRN Reason: Protocol Stop: 07/10/17 12:01 Mirtazapine (Remeron) 7.5 mg PO HS OMAR Last Admin: 07/02/17 21:14 Dose: 7.5 mg Pantoprazole Sodium (Protonix Ec Tab) 40 mg PO DAILY OMAR Last Admin: 07/03/17 09:16 Dose: 40 mg Quetiapine Fumarate (Seroquel) 12.5 mg PO HS OMAR PRN Reason: Protocol Last Admin: 07/02/17 21:14 Dose: 12.5 mg - Labs Labs: 07/02/17 06:30 07/02/17 06:30 PT 11.7 Seconds (9.9-11.8) 06/29/17 10:25 INR 1.08 (0.93-1.08) 06/29/17 10:25 APTT 30.1 Seconds (23.7-30.8) 06/29/17 10:25 - Constitutional Appears: Non-toxic, No Acute Distress - Head Exam Head Exam: NORMAL INSPECTION - ENT Exam ENT Exam: Mucous Membranes Moist - Neck Exam Neck Exam: absent: Meningismus - Respiratory Exam Respiratory Exam: Decreased Breath Sounds - Cardiovascular Exam Cardiovascular Exam: +S1, +S2 - GI/Abdominal Exam GI & Abdominal Exam: Soft. absent: Tenderness - Extremities Exam Additional comments: right foot with dressings in place Assessment and Plan - Assessment and Plan (Free Text) Plan: Assessment R/O sepsis due to UTI , R/O necrotic pressure ulcer infection R/O osteomyelitis with Pseudomonas history of acute mesenteric ischemia associated with the superior and inferior mesenteric arteries now S/P angioplasty S/P Strep mitis bacteremia with 2D echo negative for vegetations CVA chronic renal failure HTN macular degeneration DM history of urinary retention Plan will change Cefepime to Merrem but it is still intermediate to the Pseudomonas in the foot - hesitant to use aminoglycosides because of the renal failure and unable to use Ciprofloxacin because the QTc is prolonged - will discuss with Podiatry regarding treatment options - will order Bone Scan to rule out osteomyelitis will monitor clinically
[2017-07-03 15:03] LABS: URINE BILIRUBIN NEGATIVE (NEGATIVE); URINE BLOOD MODERATE (NEGATIVE); URINE GLUCOSE (UA) NEGATIVE (NEGATIVE); URINE KETONE NEGATIVE (NEGATIVE); URINE LEUKOCYTE ESTERASE LARGE Leu/uL (NEGATIVE); URINE PROTEIN 30 mg/dL (<30 mg/dL); URINE UROBILINOGEN 0.2 E.U./dL (<1 E.U./dL)
[2017-07-03 15:05] LABS: URINE APPEARANCE TURBID (CLEAR); URINE COLOR YELLOW (YELLOW)
[2017-07-03 15:15] LABS: URINE BACTERIA MANY (NEG); URINE WBC TNTC /hpf (0-6)
[2017-07-04 07:39] LABS: HEMATOCRIT 29.3 % (42.0-52.0); MEAN CELL VOLUME 90.4 fl (80.0-105.0); MEAN CORPUSCULAR HEMOGLOBIN 30.2 pg (25.0-35.0); MEAN CORPUSCULAR HGB CONC 33.4 g/dl (31.0-37.0); MEAN PLATELET VOLUME 9.5 fl (7.0-11.0); RED CELL DISTRIBUTION WIDTH 15.2 % (11.5-14.5); WHITE BLOOD COUNT 8.1 10^3/ul (4.5-11.0)
[2017-07-04 07:55] LABS: ALB/GLOB RATIO 0.8 (1.1-1.8); BILIRUBIN,TOTAL 0.2 mg/dL (0.2-1.3); CALCIUM 8.4 mg/dL (8.4-10.5); POTASSIUM 4.9 mmol/L (3.6-5.0); TOTAL PROTEIN 5.9 g/dL (5.8-8.3)
--- NOTE | 2017-07-04 09:05 | CP.PCM.PN ---
<Tabatha Connelly - Last Filed: 07/04/17 12:20> Subjective - Date & Time of Evaluation Date of Evaluation: 07/04/17 Time of Evaluation: 09:03 - Subjective Subjective: PGY-[address] Newman Patient seen and examined at bedside. No acute distress. Patient is resting comfortably. Patient has no complaints. Patient denies chest pain, sob, abd pain , n/v/d/c. Patient is tolerating diet. Objective - Vital Signs/Intake and Output Vital Signs (last 24 hours): Temp Pulse Resp BP Pulse Ox 97.0 F L 20 L 81 H 140/90 98 07/04/17 08:38 07/04/17 08:38 07/04/17 08:38 07/04/17 08:38 07/04/17 08:38 Intake and Output: 07/04/17 07/04/17 06:59 18:59 Intake Total 420 Balance 420 - Medications Medications: Current Medications Alprazolam (Xanax) 0.5 mg PO Q6 PRN; Protocol PRN Reason: Agitation Last Admin: 07/03/17 13:48 Dose: 0.5 mg Atorvastatin Calcium (Lipitor) 10 mg PO HS OMAR Last Admin: 07/03/17 21:20 Dose: 10 mg Collagenase (Santyl) 0 gm TOP DAILY OMAR Last Admin: 07/03/17 10:17 Dose: 1 applic Sodium Chloride (Sodium Chloride 0.9%) 1,000 mls @ 50 mls/hr IV .Q20H OMAR Last Admin: 07/03/17 13:59 Dose: Not Given Meropenem 1g/NS 100mL IVPB (Meropenem 1g/Ns 100ml Ivpb) 1 gm in 100 mls @ 100 mls/hr IVPB Q12 OMAR PRN Reason: Protocol Stop: 07/10/17 12:01 Last Admin: 07/03/17 13:36 Dose: Not Given Mirtazapine (Remeron) 7.5 mg PO HS OMAR Last Admin: 07/03/17 21:20 Dose: 7.5 mg Pantoprazole Sodium (Protonix Ec Tab) 40 mg PO DAILY OMAR Last Admin: 07/03/17 09:16 Dose: 40 mg Quetiapine Fumarate (Seroquel) 12.5 mg PO HS OMAR PRN Reason: Protocol Last Admin: 07/03/17 21:20 Dose: 12.5 mg - Labs Labs: 07/04/17 07:36 07/04/17 07:36 PT 11.7 Seconds (9.9-11.8) 06/29/17 10:25 INR 1.08 (0.93-1.08) 06/29/17 10:25 APTT 30.1 Seconds (23.7-30.8) 06/29/17 10:25 - Constitutional Appears: No Acute Distress - Head Exam Head Exam: ATRAUMATIC, NORMAL INSPECTION, NORMOCEPHALIC - Eye Exam Eye Exam: EOMI, Normal appearance - ENT Exam ENT Exam: Mucous Membranes Moist - Respiratory Exam Respiratory Exam: Clear to Ausculation Bilateral, NORMAL BREATHING PATTERN. absent: Decreased Breath Sounds, Rales, Rhonchi, Wheezes, Respiratory Distress - Cardiovascular Exam Cardiovascular Exam: REGULAR RHYTHM, +S1, +S2. absent: Tachycardia, Murmur - GI/Abdominal Exam GI & Abdominal Exam: Soft, Normal Bowel Sounds. absent: Distended, Firm, Tenderness - Extremities Exam Extremities Exam: Normal Inspection. absent: Pedal Edema, Tenderness - Neurological Exam Neurological Exam: Alert, Awake, Oriented x3 - Skin Skin Exam: Dry, Intact, Normal Color, Warm Assessment and Plan - Assessment and Plan (Free Text) Assessment: 81 yo male with PMH of dementia, PVD, CVA, CKD stage III, DMII, HTN presents with failure to thrive and frequent falls with right foot ulcer. Plan: 1. right foot necrotic ulcer - wound culture positive for pseudomonas aeruginosa - blood culture negative - abx meropenem - IVF NS @50cc/ho - bone scan r/o osteomyelitis read pending - ID following - artistic director following - case manger for placement 2. dementia - cont home meds seroquel, remeron - xanax prn 3. h/o HTN - controlled 4. h/o DMII - controlled - not on any medications at home - cont to monitor <Jakob Newman S - Last Filed: 07/04/17 18:00> Objective - Vital Signs/Intake and Output Vital Signs (last 24 hours): Temp Pulse Resp BP Pulse Ox 97.0 F L 20 L 81 H 140/90 98 07/04/17 08:38 07/04/17 08:38 07/04/17 08:38 07/04/17 08:38 07/04/17 08:38 Intake and Output: 07/04/17 07/04/17 06:59 18:59 Intake Total 420 840 Balance 420 840 - Medications Medications: Current Medications Alprazolam (Xanax) 0.5 mg PO Q6 PRN; Protocol PRN Reason: Agitation Last Admin: 07/03/17 13:48 Dose: 0.5 mg Atorvastatin Calcium (Lipitor) 10 mg PO HS OMAR Last Admin: 07/03/17 21:20 Dose: 10 mg Collagenase (Santyl) 0 gm TOP DAILY OMAR Last Admin: 07/03/17 10:17 Dose: 1 applic Sodium Chloride (Sodium Chloride 0.9%) 1,000 mls @ 50 mls/hr IV .Q20H OMAR Last Admin: 07/03/17 13:59 Dose: Not Given Meropenem 1g/NS 100mL IVPB (Meropenem 1g/Ns 100ml Ivpb) 1 gm in 100 mls @ 100 mls/hr IVPB Q12 OMAR PRN Reason: Protocol Stop: 07/10/17 12:01 Last Admin: 07/04/17 10:00 Dose: Not Given Mirtazapine (Remeron) 7.5 mg PO HS OMAR Last Admin: 07/03/17 21:20 Dose: 7.5 mg Pantoprazole Sodium (Protonix Ec Tab) 40 mg PO DAILY OMAR Last Admin: 07/04/17 10:39 Dose: 40 mg Quetiapine Fumarate (Seroquel) 12.5 mg PO HS OMAR PRN Reason: Protocol Last Admin: 07/03/17 21:20 Dose: 12.5 mg - Labs Labs: 07/04/17 07:36 07/04/17 07:36 PT 11.7 Seconds (9.9-11.8) 06/29/17 10:25 INR 1.08 (0.93-1.08) 06/29/17 10:25 APTT 30.1 Seconds (23.7-30.8) 06/29/17 10:25 Assessment and Plan - Assessment and Plan (Free Text) Plan: Pt seen and examined. Above note of resident reviewed and agree with above note. Meds and labs reviewed. Bone scan done. Will need joint terminal attack controller placement. Poor IV access
[2017-07-04] MEDS: Meropenem 1g/NS 100mL IVPB 1 GM/100 ML PIGGYBACK IVPB SCH ×2 (10:00→21:31)
[2017-07-04] MEDS: Pantoprazole 40 mg EC Tab PO SCH (10:39)
--- NOTE | 2017-07-04 13:03 | CP.PCM.PN ---
Subjective - Date & Time of Evaluation Date of Evaluation: 07/04/17 Time of Evaluation: 11:25 - Subjective Subjective: Comfortable in bed, no fevers. Objective - Vital Signs/Intake and Output Vital Signs (last 24 hours): Temp Pulse Resp BP Pulse Ox 97.0 F L 20 L 81 H 140/90 98 07/04/17 08:38 07/04/17 08:38 07/04/17 08:38 07/04/17 08:38 07/04/17 08:38 Intake and Output: 07/04/17 07/04/17 06:59 18:59 Intake Total 420 Balance 420 - Medications Medications: Current Medications Alprazolam (Xanax) 0.5 mg PO Q6 PRN; Protocol PRN Reason: Agitation Last Admin: 07/03/17 13:48 Dose: 0.5 mg Atorvastatin Calcium (Lipitor) 10 mg PO HS OMAR Last Admin: 07/03/17 21:20 Dose: 10 mg Collagenase (Santyl) 0 gm TOP DAILY OMAR Last Admin: 07/03/17 10:17 Dose: 1 applic Sodium Chloride (Sodium Chloride 0.9%) 1,000 mls @ 50 mls/hr IV .Q20H OMAR Last Admin: 07/03/17 13:59 Dose: Not Given Meropenem 1g/NS 100mL IVPB (Meropenem 1g/Ns 100ml Ivpb) 1 gm in 100 mls @ 100 mls/hr IVPB Q12 OMAR PRN Reason: Protocol Stop: 07/10/17 12:01 Last Admin: 07/03/17 13:36 Dose: Not Given Mirtazapine (Remeron) 7.5 mg PO HS OMAR Last Admin: 07/03/17 21:20 Dose: 7.5 mg Pantoprazole Sodium (Protonix Ec Tab) 40 mg PO DAILY OMAR Last Admin: 07/03/17 09:16 Dose: 40 mg Quetiapine Fumarate (Seroquel) 12.5 mg PO HS OMAR PRN Reason: Protocol Last Admin: 07/03/17 21:20 Dose: 12.5 mg - Labs Labs: 07/04/17 07:36 07/04/17 07:36 PT 11.7 Seconds (9.9-11.8) 06/29/17 10:25 INR 1.08 (0.93-1.08) 06/29/17 10:25 APTT 30.1 Seconds (23.7-30.8) 06/29/17 10:25 - Constitutional Appears: Non-toxic, No Acute Distress - Head Exam Head Exam: NORMAL INSPECTION - ENT Exam ENT Exam: Mucous Membranes Moist - Neck Exam Neck Exam: absent: Meningismus - Respiratory Exam Respiratory Exam: Decreased Breath Sounds - Cardiovascular Exam Cardiovascular Exam: +S1, +S2 - GI/Abdominal Exam GI & Abdominal Exam: Soft. absent: Tenderness - Extremities Exam Additional comments: right foot with dressings in place Assessment and Plan - Assessment and Plan (Free Text) Plan: Assessment R/O sepsis due to UTI , R/O necrotic pressure ulcer infection R/O osteomyelitis with Pseudomonas history of acute mesenteric ischemia associated with the superior and inferior mesenteric arteries now S/P angioplasty S/P Strep mitis bacteremia with 2D echo negative for vegetations CVA chronic renal failure HTN macular degeneration DM history of urinary retention Plan will change Cefepime to Merrem but it is still intermediate to the Pseudomonas in the foot - hesitant to use aminoglycosides because of the renal failure and unable to use Ciprofloxacin because the QTc is prolonged - will discuss with Podiatry regarding treatment options - follow up Bone Scan to rule out osteomyelitis discussed with Dr. Sanchez will continue to monitor clinically
--- NOTE | 2017-07-04 14:36 | CP.PCM.PN ---
<Christian Chinchilla - Last Filed: 07/04/17 14:31> Subjective - Date & Time of Evaluation Date of Evaluation: 07/04/17 Time of Evaluation: 14:36 - Subjective Subjective: Podiatry Progress note for Dr. Harmon: 81 year old male seen and evaluated at bedside for right plantar heel ulcer. Patient appears to be resting comfortably in his bed, AAOx3 and in NAD. Patient denies of any pain over night to his right foot. Dressing is clean, dry, and intact with no strikethrough noted. Multipodus boots are not being worn by patient at time of evauation. Patient denies of any F/N/V/C/SOB/chest pain today. Objective - Vital Signs/Intake and Output Vital Signs (last 24 hours): Temp Pulse Resp BP Pulse Ox 97.0 F L 20 L 81 H 140/90 98 07/04/17 08:38 07/04/17 08:38 07/04/17 08:38 07/04/17 08:38 07/04/17 08:38 Intake and Output: 07/04/17 07/04/17 06:59 18:59 Intake Total 420 Balance 420 - Medications Medications: Current Medications Alprazolam (Xanax) 0.5 mg PO Q6 PRN; Protocol PRN Reason: Agitation Last Admin: 07/03/17 13:48 Dose: 0.5 mg Atorvastatin Calcium (Lipitor) 10 mg PO HS [facility] Last Admin: 07/03/17 21:20 Dose: 10 mg Collagenase (Santyl) 0 gm TOP DAILY [facility] Last Admin: 07/03/17 10:17 Dose: 1 applic Sodium Chloride (Sodium Chloride 0.9%) 1,000 mls @ 50 mls/hr IV .Q20H [facility] Last Admin: 07/03/17 13:59 Dose: Not Given Meropenem 1g/NS 100mL IVPB (Meropenem 1g/Ns 100ml Ivpb) 1 gm in 100 mls @ 100 mls/hr IVPB Q12 O[facility] PRN Reason: Protocol Stop: 07/10/17 12:01 Last Admin: 07/04/17 10:00 Dose: Not Given Mirtazapine (Remeron) 7.5 mg PO HS [facility] Last Admin: 07/03/17 21:20 Dose: 7.5 mg Pantoprazole Sodium (Protonix Ec Tab) 40 mg PO DAILY [facility] Last Admin: 07/04/17 10:39 Dose: 40 mg Quetiapine Fumarate (Seroquel) 12.5 mg PO HS [facility] PRN Reason: Protocol Last Admin: 07/03/17 21:20 Dose: 12.5 mg - Labs Labs: 07/04/17 07:36 07/04/17 07:36 PT 11.7 Seconds (9.9-11.8) 06/29/17 10:25 INR 1.08 (0.93-1.08) 06/29/17 10:25 APTT 30.1 Seconds (23.7-30.8) 06/29/17 10:25 - Constitutional Appears: Well, Non-toxic, No Acute Distress - Extremities Exam Additional comments: Bilateral lower extremity exam: VASC: DP/PT pulses are faintly palpable 1/4 b/l, SPEEDER WORKER: < 4 sec to all digits, no pitting or non pitting edema noted, Temp gradient: warm to cool from proximal to distal DERM: Dry necrotic eschar noted on the left plantar heel, hyperpigmented skin noted on the heel measuring approximately 2.5 cm x 2.0 cm, no active drainage, no probe to bone, no tunneling, no undermining, no surrounding erythema, no clinical suspicion of infection NEURO: Protective sensation diminished ORTHO: tenderness on palpation of the plantar heel of the left foot - Neurological Exam Neurological Exam: Alert, Awake, Oriented x3 - Psychiatric Exam Psychiatric exam: Normal Affect, Normal Mood Assessment and Plan - Assessment and Plan (Free Text) Assessment: 81 y/o male seen at bedside for right foot plantar heel necrotic pressure ulcer (Ramos 4) Plan: Patient seen and evaluated at beside Plan discussed in detail with attending Dr. Harmon Charts labs and vitals reviewed: afebrile, WBC 8.1 07/01: wound cx pseudomonas aeruginosa 07/01 xray: no evidence of OM but MRI recommended Bone scan taken today, results pending Continue abx per ID Eschar to plantar left heel dressed with Santyl, DSD Multipodus boots applied to b/l LE Podiatry to continue to follow while patient in house <Jim Harmon - Last Filed: 07/05/17 07:27> Objective - Vital Signs/Intake and Output Vital Signs (last 24 hours): Temp Pulse Resp BP Pulse Ox 97.0 F L 20 L 81 H 140/90 98 07/04/17 08:38 07/04/17 08:38 07/04/17 08:38 07/04/17 08:38 07/04/17 08:38 Intake and Output: 07/05/17 07/05/17 06:59 18:59 Intake Total 500 240 Balance 500 240 - Medications Medications: Current Medications Alprazolam (Xanax) 0.5 mg PO Q6 PRN; Protocol PRN Reason: Agitation Last Admin: 07/03/17 13:48 Dose: 0.5 mg Atorvastatin Calcium (Lipitor) 10 mg PO HS [facility] Last Admin: 07/04/17 21:31 Dose: 10 mg Collagenase (Santyl) 0 gm TOP DAILY [facility] Last Admin: 07/03/17 10:17 Dose: 1 applic Sodium Chloride (Sodium Chloride 0.9%) 1,000 mls @ 50 mls/hr IV .Q20H [facility] Last Admin: 07/03/17 13:59 Dose: Not Given Meropenem 1g/NS 100mL IVPB (Meropenem 1g/Ns 100ml Ivpb) 1 gm in 100 mls @ 100 mls/hr IVPB Q12 [facility] PRN Reason: Protocol Stop: 07/10/17 12:01 Last Admin: 07/04/17 21:31 Dose: 100 mls/hr Mirtazapine (Remeron) 7.5 mg PO HS [facility] Last Admin: 07/04/17 21:32 Dose: 7.5 mg Pantoprazole Sodium (Protonix Ec Tab) 40 mg PO DAILY [facility] Last Admin: 07/04/17 10:39 Dose: 40 mg Quetiapine Fumarate (Seroquel) 12.5 mg PO HS [facility] PRN Reason: Protocol Last Admin: 07/04/17 21:32 Dose: 12.5 mg - Labs Labs: 07/04/17 07:36 07/04/17 07:36 PT 11.7 Seconds (9.9-11.8) 06/29/17 10:25 INR 1.08 (0.93-1.08) 06/29/17 10:25 APTT 30.1 Seconds (23.7-30.8) 06/29/17 10:25 Attending/Attestation - Attestation I have personally seen and examined this patient.: Yes I have fully participated in the care of the patient.: Yes I have reviewed all pertinent clinical information, including history, physical exam and plan: Yes
--- NOTE | 2017-07-04 16:37 | NM ---
PROCEDURE: Whole Body Bone Scan caps HISTORY: right foot eval for osteomyelitis COMPARISON: 07/01/2017 right foot radiographs TECHNIQUE: Following administration of 27.3 miCu of Tc MDP multiplanar whole body images were obtained. FINDINGS: Flow component: Increased flow to the right lower extremity an in particular the right os calcis Blood pool component: Accumulation of radionuclide right calcaneus. Delayed images at 3:00: Retention of radionuclide palm are aspect of the calcaneus Other findings: None. IMPRESSION: Positive 3 phase bone scan for acute osseous process affecting the plantar aspect of the calcaneus.
[2017-07-05 09:00] VITALS: BP 134/90; PULSE 99; RESP 22; TEMP 98.4; O2SAT 96
[2017-07-05] MEDS: Meropenem 1g/NS 100mL IVPB 1 GM/100 ML PIGGYBACK IVPB SCH (09:35)
[2017-07-05] MEDS: Pantoprazole 40 mg EC Tab PO SCH (09:38)
[2017-07-05] MEDS: Collagenase 250 Units/gm Ointment(30 gm) TOP SCH (09:39)
[2017-07-05 11:36] LABS: ALB/GLOB RATIO 0.8 (1.1-1.8); BILIRUBIN,TOTAL 0.4 mg/dL (0.2-1.3); CALCIUM 8.3 mg/dL (8.4-10.5); POTASSIUM 4.8 mmol/L (3.6-5.0); TOTAL PROTEIN 5.9 g/dL (5.8-8.3)
--- NOTE | 2017-07-05 12:38 | CP.PCM.PN ---
<Tabatha Connelly - Last Filed: 07/05/17 13:21> Subjective - Date & Time of Evaluation Date of Evaluation: 07/05/17 Time of Evaluation: 12:36 - Subjective Subjective: PGY-[address] Newman Patient seen and examined at bedside. No acute distress. Patient is sleeping comfortably, easily arousable. Patient has no complaints. Patient denies chest pain, sob, abd pain. Patient is tolerating diet. Objective - Vital Signs/Intake and Output Vital Signs (last 24 hours): Temp Pulse Resp BP Pulse Ox 98.4 F 99 H 22 134/90 96 07/05/17 08:58 07/05/17 08:58 07/05/17 08:58 07/05/17 08:58 07/05/17 08:58 Intake and Output: 07/05/17 07/05/17 06:59 18:59 Intake Total 500 240 Balance 500 240 - Medications Medications: Current Medications Alprazolam (Xanax) 0.5 mg PO Q6 PRN; Protocol PRN Reason: Agitation Last Admin: 07/03/17 13:48 Dose: 0.5 mg Atorvastatin Calcium (Lipitor) 10 mg PO HS [facility] Last Admin: 07/04/17 21:31 Dose: 10 mg Collagenase (Santyl) 0 gm TOP DAILY [facility] [place] Last Admin: 07/05/17 09:39 Dose: 1 applic Fluconazole (Diflucan) 100 mg PO DAILY [facility] [place] PRN Reason: Protocol Stop: 07/12/17 11:46 Last Admin: 07/05/17 12:22 Dose: 100 mg Sodium Chloride (Sodium Chloride 0.9%) 1,000 mls @ 50 mls/hr IV .Q20H [facility] [place] Last Admin: 07/03/17 13:59 Dose: Not Given Meropenem 1g/NS 100mL IVPB (Meropenem 1g/Ns 100ml Ivpb) 1 gm in 100 mls @ 100 mls/hr IVPB Q12 [facility] PRN Reason: Protocol Stop: 07/31/17 12:01 Last Admin: 07/05/17 09:35 Dose: 100 mls/hr Mirtazapine (Remeron) 7.5 mg PO HS [facility] [place] Last Admin: 07/04/17 21:32 Dose: 7.5 mg Pantoprazole Sodium (Protonix Ec Tab) 40 mg PO DAILY [facility] [place] Last Admin: 07/05/17 09:38 Dose: Not Given Quetiapine Fumarate (Seroquel) 12.5 mg PO HS [facility] PRN Reason: Protocol Last Admin: 07/04/17 21:32 Dose: 12.5 mg - Labs Labs: 07/04/17 07:36 07/05/17 11:20 PT 11.7 Seconds (9.9-11.8) 06/29/17 10:25 INR 1.08 (0.93-1.08) 06/29/17 10:25 APTT 30.1 Seconds (23.7-30.8) 06/29/17 10:25 - Constitutional Appears: No Acute Distress - Head Exam Head Exam: ATRAUMATIC, NORMAL INSPECTION, NORMOCEPHALIC - Eye Exam Eye Exam: EOMI, Normal appearance - Respiratory Exam Respiratory Exam: Clear to Ausculation Bilateral, NORMAL BREATHING PATTERN. absent: Decreased Breath Sounds, Rales, Rhonchi, Wheezes, Respiratory Distress, Stridor - Cardiovascular Exam Cardiovascular Exam: REGULAR RHYTHM, +S1, +S2. absent: Tachycardia, Murmur - GI/Abdominal Exam GI & Abdominal Exam: Soft, Normal Bowel Sounds. absent: Distended, Firm, Guarding, Tenderness - Extremities Exam Extremities Exam: Normal Inspection. absent: Pedal Edema, Tenderness - Neurological Exam Neurological Exam: Alert, Awake, Oriented x3 - Skin Skin Exam: Dry, Intact, Normal Color, Warm Assessment and Plan - Assessment and Plan (Free Text) Assessment: 81 yo male with PMH of dementia, PVD, CVA, CKD stage IV, DMII, HTN presents with failure to thrive and frequent falls with right foot ulcer. Plan: 1. right foot necrotic ulcer - wound culture positive for pseudomonas aeruginosa - blood culture negative - abx meropenem, intermediate sensitivity however can not use aminoglycosides due to CKD stage IV - IVF NS @50cc/ho - bone scan showed Positive 3 phase bone scan for acute osseous process affecting the plantar aspect of the calcaneus. - ID following, recommendation appreciated - home appliance technician following, recommendation appreciated - case manger for placement 2. dementia - cont home meds seroquel, remeron - xanax prn 3. h/o HTN - controlled 4. h/o DMII - controlled - not on any medications at home - cont to monitor 5. CKD stage IV - cr improving - cont to monitor <Jakob Newman S - Last Filed: 07/05/17 22:26> Objective - Vital Signs/Intake and Output Vital Signs (last 24 hours): Temp Pulse Resp BP Pulse Ox 98.4 F 99 H 22 134/90 96 07/05/17 08:58 07/05/17 08:58 07/05/17 08:58 07/05/17 08:58 07/05/17 08:58 Intake and Output: 07/05/17 07/06/17 18:59 06:59 Intake Total 600 Balance 600 - Labs Labs: 07/04/17 07:36 07/05/17 11:20 PT 11.7 Seconds (9.9-11.8) 06/29/17 10:25 INR 1.08 (0.93-1.08) 06/29/17 10:25 APTT 30.1 Seconds (23.7-30.8) 06/29/17 10:25 Assessment and Plan - Assessment and Plan (Free Text) Plan: Pt seen and examined. Agree with above note of resident. Meds and labs reviewed. Fish Straightener notes reviewed. Pt to go to [facility]. Spoke to ID and Podiatry.Will need IV Abx and conservative management of hell ulcer. Pt with Osteo. Intermediate sensitivity on Wound Cx.
--- NOTE | 2017-07-05 12:39 | CP.PCM.PN ---
Subjective - Date & Time of Evaluation Date of Evaluation: 07/05/17 Time of Evaluation: 11:00 - Subjective Subjective: Comfortable, not in distress, no fevers. Objective - Vital Signs/Intake and Output Vital Signs (last 24 hours): Temp Pulse Resp BP Pulse Ox 98.4 F 99 H 22 134/90 96 07/05/17 08:58 07/05/17 08:58 07/05/17 08:58 07/05/17 08:58 07/05/17 08:58 Intake and Output: 07/05/17 07/05/17 06:59 18:59 Intake Total 500 240 Balance 500 240 - Medications Medications: Current Medications Alprazolam (Xanax) 0.5 mg PO Q6 PRN; Protocol PRN Reason: Agitation Last Admin: 07/03/17 13:48 Dose: 0.5 mg Atorvastatin Calcium (Lipitor) 10 mg PO HS [facility] Last Admin: 07/04/17 21:31 Dose: 10 mg Collagenase (Santyl) 0 gm TOP DAILY [facility] Last Admin: 07/05/17 09:39 Dose: 1 applic Sodium Chloride (Sodium Chloride 0.9%) 1,000 mls @ 50 mls/hr IV .Q20H [facility] Last Admin: 07/03/17 13:59 Dose: Not Given Meropenem 1g/NS 100mL IVPB (Meropenem 1g/Ns 100ml Ivpb) 1 gm in 100 mls @ 100 mls/hr IVPB Q12 [facility] PRN Reason: Protocol Stop: 07/10/17 12:01 Last Admin: 07/05/17 09:35 Dose: 100 mls/hr Mirtazapine (Remeron) 7.5 mg PO HS [facility] Last Admin: 07/04/17 21:32 Dose: 7.5 mg Pantoprazole Sodium (Protonix Ec Tab) 40 mg PO DAILY [facility] Last Admin: 07/05/17 09:38 Dose: Not Given Quetiapine Fumarate (Seroquel) 12.5 mg PO HS [facility] PRN Reason: Protocol Last Admin: 07/04/17 21:32 Dose: 12.5 mg - Labs Labs: 07/04/17 07:36 07/04/17 07:36 PT 11.7 Seconds (9.9-11.8) 06/29/17 10:25 INR 1.08 (0.93-1.08) 06/29/17 10:25 APTT 30.1 Seconds (23.7-30.8) 06/29/17 10:25 - Constitutional Appears: Non-toxic, No Acute Distress - Head Exam Head Exam: NORMAL INSPECTION - Neck Exam Neck Exam: absent: Meningismus - Respiratory Exam Respiratory Exam: Decreased Breath Sounds - Cardiovascular Exam Cardiovascular Exam: +S1, +S2 - GI/Abdominal Exam GI & Abdominal Exam: Soft. 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 Merrem is the best option we have currently) - should get weekly ESR, CRP, CBC, CMP while on antibiotics and would prefer about 6 weeks of antibiotics with follow up with Podiatry discussed with Dr. Sanchez will continue to monitor clinically
--- NOTE | 2017-07-05 14:54 | PN ---
DATE: SUBJECTIVE: A 81-year-old male seen at bedside for continued evaluation and management of a necrotic pressure ulcer on his right heel with osteomyelitis of the calcaneus upon bone scan. The patient is resting comfortably; however, does not answer any questions. PHYSICAL EXAMINATION: VITAL SIGNS: Reveal temperature of 98.4, pulse rate of 99, blood pressure 134/90, respiratory rate of 22. EXTREMITIES: Palpable pedal pulses noted bilaterally. Absent pedal hair growth noted bilaterally. Capillary refilling time is delayed x10. There is a full thickness ulceration located at the right heel that is gangrenous, has demarcated, shows no drainage, no purulence, no signs of underlying abscess formation. The wound does not probe to tendon or bone. LABORATORY DATA: Laboratory findings reveal white count of 8.1, hemoglobin of 9.8, hematocrit of 29.3, platelet count of 309. Microbiology report of the right heel reveals pseudomonal growth. Bone scan, 3-phase, reveals acute osseous process affecting the plantar aspect of the calcaneus highly indicative of osteomyelitis. 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 PLAN: The patient's wound was examined, cleansed with normal sterile saline and application of Betadine solution and a dry sterile dressing was applied. We will continue to offload it at all times with the formal type Podus boots. Dr. Mcghee's note was read and appreciated. Case discussed with Dr. Dia. We are in a conundrum as to how to proceed given the patient's history of renal failure and the contraindications with aminoglycosides as well as his prolonged QT and the use of ciprofloxacin, which is contraindicated. As far as surgical interventions, given the patient's overall status, resection of the calcaneal bone would leave a large wound, which in all likelihood would not heal. Therefore, the only other surgical option would be a below-knee amputation, which is not optimal as well. We would consider 4 to 6 weeks of meropenem, which is not the optimal drug of choice, but nevertheless, it is the better option than a below-knee amputation. I will order an arterial Doppler to ascertain lower extremity perfusion in the event that the patient does need surgery. At this point, we would recommend 4 to 6 weeks of antibiotics and offloading with aggressive local wound care. The patient's is unable to probably care for her in his current state and would recommend alf admission if feasible. The patient will be seen and followed daily. Jim Harmon DPM
== END 2017-07-05 15:43 | DRG 299 ==
LOC: ED 08:56 → ERH 12:52 → 3RSO 17:11
PROVIDERS: ADMIT Internal Medicine Nephrology; ATTEND Internal Medicine Nephrology
PROC: 05H533Z Insertion of Infusion Device into Right Subclavian Vein, Percutaneous Approach (ICD-10-PCS; principal; 2017-07-04)
PROC: B546ZZA Ultrasonography of Right Subclavian Vein, Guidance (ICD-10-PCS; 2017-07-04)
DX: E11.52 Type 2 diabetes mellitus with diabetic peripheral angiopathy with gangrene (principal); L89.614 Pressure ulcer of right heel, stage 4; N18.4 Chronic kidney disease, stage 4 (severe); E11.621 Type 2 diabetes mellitus with foot ulcer; E11.22 Type 2 diabetes mellitus with diabetic chronic kidney disease; E11.69 Type 2 diabetes mellitus with other specified complication; M86.9 Osteomyelitis, unspecified; F03.90 Unspecified dementia, unspecified severity, without behavioral disturbance, psychotic disturbance, mood disturbance, and anxiety; N39.0 Urinary tract infection, site not specified; R62.7 Adult failure to thrive; I25.10 Atherosclerotic heart disease of native coronary artery without angina pectoris; I12.9 Hypertensive chronic kidney disease with stage 1 through stage 4 chronic kidney disease, or unspecified chronic kidney disease; B96.5 Pseudomonas (aeruginosa) (mallei) (pseudomallei) as the cause of diseases classified elsewhere; E78.5 Hyperlipidemia, unspecified; R33.9 Retention of urine, unspecified; D64.9 Anemia, unspecified; H35.30 Unspecified macular degeneration; R29.6 Repeated falls; Z91.81 History of falling; Z79.84 Long term (current) use of oral hypoglycemic drugs; Z86.73 Personal history of transient ischemic attack (TIA), and cerebral infarction without residual deficits; Z87.440 Personal history of urinary (tract) infections; Z87.891 Personal history of nicotine dependence

== ENCOUNTER 2018-01-29 19:41 | Inpatient (IN) | payer MEDICARE, OTHER ==
[2018-01-29] MEDS ORDERED: Sodium Chloride 0.9% 1,000 ML IV ONE (20:13)
[2018-01-29 21:04] LABS: BASO # 0.07 K/mm3 (0.0-2.0); BASO % 0.5 % (0.0-3.0); EOS # 0.4 (0.0-0.7); EOS % 3.1 % (1.5-5.0); GRAN # 10.2 (1.4-6.5); HEMOGLOBIN 10.9 g/dL (14.0-18.0); LYMPH # 1.8 (1.2-3.4); LYMPH % 14.1 % (22.0-35.0); MEAN CELL VOLUME 92.3 fl (80.0-105.0); MEAN CORPUSCULAR HEMOGLOBIN 29.9 pg (25.0-35.0); MEAN CORPUSCULAR HGB CONC 32.4 g/dl (31.0-37.0); MONO # 0.4 (0.1-0.6); MONO % 3.3 % (1.0-6.0); RBC 3.64 10^6/uL (3.5-6.1); RED CELL DISTRIBUTION WIDTH 14.6 % (11.5-14.5); WHITE BLOOD COUNT 12.9 10^3/ul (4.5-11.0)
[2018-01-29 21:05] LABS: ALB/GLOB RATIO 0.9 (1.1-1.8); ALBUMIN 3.6 g/dL (3.0-4.8); CALCIUM 8.9 mg/dL (8.4-10.5)
[2018-01-29 21:16] LABS: TROPONIN I 0.02 ng/mL
[2018-01-29] MEDS ORDERED: Sodium Chloride 0.9% 1,000 ML IV SCH (23:00)
--- NOTE | 2018-01-29 23:08 | CT ---
EXAM: CT Head Without Intravenous Contrast CLINICAL HISTORY: 82 years old, male; Signs and symptoms; Altered mental status/memory loss; Age related cognitive decline; Additional info: R/O ich TECHNIQUE: Axial computed tomography images of the head/brain without intravenous contrast. All CT scans at this facility use one or more dose reduction techniques, viz.: automated exposure control; ma/kV adjustment per patient size (including targeted exams where dose is matched to indication; i.e. head); or iterative reconstruction technique. Coronal and sagittal reformatted images were created and reviewed. COMPARISON: CT - HEAD W/O CONTRAST 2017-06-29 11:23 FINDINGS: Brain: There is mild diffuse cerebral atrophy present, consistent with this patient's age. There is marked diffuse heterogeneity of the white matter attenuation, consistent with severe chronic white matter ischemic changes. Encephalomalacia in the right cerebellar hemisphere consistent with an old infarct. Chronic right thalamic infarct. Stable suprasellar mass. No hemorrhage. Ventricles: The ventricular system demonstrates mild diffuse compensatory enlargement. Bones/joints: Unremarkable. No acute fracture. Soft tissues: Unremarkable. Sinuses: There is diffuse mucoperiosteal thickening in the right maxillary sinus, consistent with chronic sinusitis. Mastoid air cells: Unremarkable as visualized. No mastoid effusion. IMPRESSION: Age-related atrophy and chronic white matter ischemic changes, with no evidence of an acute intracranial abnormality. 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 Chronic sinusitis.
[2018-01-29 23:22] LABS: PH,URINE 6.5 (4.7-8.0); URINE BILIRUBIN NEGATIVE (NEGATIVE); URINE BLOOD LARGE (NEGATIVE); URINE GLUCOSE (UA) NEGATIVE (NEGATIVE); URINE LEUKOCYTE ESTERASE LARGE Leu/uL (NEGATIVE); URINE PROTEIN 100 mg/dL (<30 mg/dL); URINE UROBILINOGEN 0.2 E.U./dL (<1 E.U./dL)
[2018-01-29 23:31] LABS: URINE APPEARANCE SL CLOUDY (CLEAR); URINE COLOR YELLOW (YELLOW)
--- NOTE | 2018-01-29 23:38 | ED PDOC ---
Arrival/HPI - General Chief Complaint: Weakness/Neurological Deficit Time Seen by Provider: 01/29/18 19:58 Historian: Patient, EMS - History of Present Illness Narrative History of Present Illness (Text): Patient is a 82 year old male who was brought to the Emergency department by EMS , who were called because nursing staff at his senior care believed patient wasn't "responsive". EMS staff states that upon arriving on site patient was responsive. Here in the Emergency department, patient was answering questions and only complaining of chronic back pain. Patient denies fevers, chills, chest pain, shortness of breath, dyspnea on exertion, cough, abdominal pain, nausea, vomiting, diarrhea, neck pain, headache, dizziness, or any other complaint. Time/Duration: Prior to Arrival Symptom Onset: Sudden Symptom Course: Improving Activities at Onset: Rest Context: Home Past Medical History - Provider Review Nursing Documentation Reviewed: Yes - Infectious Disease Hx of Infectious Diseases: None - Tetanus Immunization Tetanus Immunization: Unknown - Cardiac Hx Cardiac Disorders: Yes Hx Hypertension: Yes - Pulmonary Hx Respiratory Disorders: No - Neurological HX Cerebrovascular Accident: Yes - HEENT Hx HEENT Disorder: Yes Hx Macular Degeneration: Yes Other/Comment: egd for removal of foreign body 06/08/14 - Renal Hx Renal Disorder: No - Endocrine/Metabolic Hx Diabetes Mellitus Type 2: Yes - Hematological/Oncological Hx Cancer: No - Integumentary Hx Dermatological Disorder: Yes Hx Basal Cell Carcinoma: No Other/Comment: left 5th toe purple discolored, redness to buttocks/sacrum no openings, redness r hip, 4cm x 3cm necrotic right heel surrounded by red skin dry skin to r ft, thick toenails both feet - Musculoskeletal/Rheumatological Hx Falls: Yes - Gastrointestinal Hx Gastrointestinal Disorders: Yes (CONSTIPATION.) - Genitourinary/Gynecological Hx Genitourinary Disorders: Yes Hx Incontinence: Yes Hx Urinary Tract Infection: Yes (frequent) - Psychiatric Hx Psychophysiologic Disorder: Yes Hx Depression: Yes Hx Emotional Abuse: No Hx Physical Abuse: No Hx Substance Use: No - Surgical History Hx Mastectomy: No - Anesthesia Hx Anesthesia: Yes Hx Anesthesia Reactions: Yes (unknown; 2017) Hx Malignant Hyperthermia: No - Suicidal Assessment Feels Threatened In Home Enviroment: No Family/Social History - Physician Review Nursing Documentation Reviewed: Yes Family/Social History: No Known Family HX Smoking Status: Former Smoker Hx Alcohol Use: No Hx Substance Use: No Hx Substance Use Treatment: No Allergies/Home Meds Allergies/Adverse Reactions: Allergies No Known Allergies Allergy (Verified 06/16/17 16:30) Per EMS and which is at home. Pt is confused due to dementia Hx Home Medications: Home Meds Medication Instructions Recorded Confirmed Atorvastatin [Lipitor] 10 mg PO HS 06/16/17 01/30/18 Acetaminophen [Athenol] 325 mg PO Q6 01/30/18 01/30/18 Famotidine [Pepcid] 20 mg PO DAILY 01/30/18 01/30/18 Memantine [Namenda] 10 mg PO DAILY 01/30/18 01/30/18 Mirtazapine [Remeron] 15 mg PO DAILY 01/30/18 01/30/18 Review of Systems - Physician Review All systems were reviewed & negative as marked: Yes - Review of Systems Constitutional: absent: Fevers Respiratory: absent: SOB, Cough Cardiovascular: absent: Chest Pain, BENEDICT Gastrointestinal: absent: Abdominal Pain, Diarrhea, Nausea, Vomiting Musculoskeletal: Back Pain (chronic). absent: Neck Pain Neurological: absent: Headache, Dizziness Physical Exam Vital Signs Reviewed: Yes Vital Signs Temp Pulse Resp BP Pulse Ox 01/30/18 01:27 100.7 F H 99 H 16 108/66 01/29/18 23:38 98 F 98 H 16 140/65 98 01/29/18 22:04 108 H 14 140/65 97 01/29/18 22:02 98.0 F 105 H 20 110/68 97 Temperature: Afebrile Blood Pressure: Normal Pulse: Tachycardic Respiratory Rate: Normal Appearance: Positive for: Well-Appearing, Other (Thin) Mental Status: Positive for: Alert and Oriented X 3 - Systems Exam Head: Present: Atraumatic, Normocephalic Pupils: Present: PERRL Extroacular Muscles: Present: EOMI Conjunctiva: Present: Normal Mouth: Present: Moist Mucous Membranes Neck: Present: Normal Range of Motion Respiratory/Chest: Present: Clear to Auscultation, Good Air Exchange. No: Respiratory Distress, Accessory Muscle Use Cardiovascular: Present: Regular Rate and Rhythm, Normal S1, S2. No: Murmurs Abdomen: No: Tenderness, Distention, Peritoneal Signs Back: Present: Normal Inspection Upper Extremity: Present: Normal Inspection. No: Cyanosis, Edema Lower Extremity: Present: Normal Inspection. No: Edema Neurological: Present: GCS=15, CN II-XII Intact, Speech Normal Skin: Present: Warm, Dry, Normal Color. No: Rashes Psychiatric: Present: Alert, Oriented x 3, Normal Insight, Normal Concentration Medical Decision Making ED Course and Treatment: Impression: Patient is a 82 year old male who was brought to Emergency department by EMS for appearing "unresponsive" at his senior care. Plan: --Tylenol -- Rocephin --EKG --Chest X-ray --IV fluids --Urine culture --O2 via nasal cannula -- Reassess and disposition Prior Visits: Notes and results from previous visits were reviewed. Patient last presented to Emergency department on 06/29/17 for failure to thrive and UTI and was hospitalized. Progress Notes: EKG shows sinus tachycardia at 102 BPM with normal axis and intervals. Interpreted by me. Chest X-ray shows no acute processes. No change from previous. Interpreted by me 01/29/18 23:25 Discussed case with and admitted patient under his service to the medical floor. CT Head Without Intravenous Contrast: COMPARISON: CT - HEAD W/O CONTRAST 2017-06-29 11:23 IMPRESSION: Age-related atrophy and chronic white matter ischemic changes, with no evidence of an acute intracranial abnormality. 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 Chronic sinusitis. Dictated and Authenticated by: Jossy Starkey MD 01/29/2018 11:08 PM Eastern Time ([place] & [place]) - Lab Interpretations Lab Results: 01/29/18 20:46 01/29/18 20:46 Lab Results 01/29/18 23:16: Urine Color Yellow, Urine Appearance Sl cloudy, Urine pH 6.5, Ur Specific [place] 1.020, Urine Protein 100 H, Urine Glucose (UA) Negative, Urine Ketones Negative, Urine Blood Large H, Urine Nitrate Negative, Urine Bilirubin Negative, Urine Urobilinogen 0.2, Ur Leukocyte Esterase Large H, Urine RBC 2 - 5, Urine WBC Tntc, Ur Epithelial Cells 0 - 2, Urine Bacteria Few 01/29/18 20:46: Sodium 145, Potassium 4.6, Chloride 105, Carbon Dioxide 27, Anion Gap 18, BUN 45 H, Creatinine 2.4 H, Est GFR ( Amer) 32, Est GFR ( Non-Af Amer) 26, Random Glucose 140 H, Calcium 8.9, Magnesium 2.0, Total Bilirubin 0.2, AST 43, ALT 39, Alkaline Phosphatase 92, Lactate Dehydrogenase 517, Total Creatine Kinase 24 L, Troponin I 0.02 D, Total Protein 7.5, Albumin 3.6, Globulin 3.9, Albumin/Globulin Ratio 0.9 L 01/29/18 20:46: WBC 12.9 H D, RBC 3.64, Hgb 10.9 L, Hct 33.6 L, MCV 92.3, MCH 29.9, MCHC 32.4, RDW 14.6 H, Plt Count 311, MPV 10.0, Gran % 79.0 H, Lymph % ( Auto) 14.1 L, [place] % (Auto) 3.3, Eos % (Auto) 3.1, Baso % (Auto) 0.5, Gran # 10.20 H, Lymph # (Auto) 1.8, [place] # (Auto) 0.4, Eos # (Auto) 0.4, Baso # (Auto) 0.07 - RAD Interpretation Radiology Orders: 01/29/18 20:13 CHEST PORTABLE [RAD] Stat 01/29/18 21:26 HEAD W/O CONTRAST [CT] Stat Pan Reclaim Processor: ED Physician - EKG Interpretation Interpreted by ED Physician: Yes Type: 12 lead EKG - Medication Orders Current Medication Orders: Acetaminophen (Tylenol 650 Mg Supp) 650 mg RC Q4H PRN PRN Reason: Fever >100.4 F Last Admin: 01/30/18 03:26 Dose: 650 mg ROSETTE Pain/Vitals Document 01/30/18 03:26 (Rec: 01/30/18 03:28 [id number]) Pain Reassessment Is This A Pain ReAssessment? No Presence of Pain Presence of Pain No Vitals Temperature (97.6 F-99.6 F) 100.7 F Re-Assess: ROSETTE Pain/Vitals Document 01/30/18 04:26 FC (Rec: 01/30/18 04:35 [facility]2) Vitals Temperature (97.6 F-99.6 F) 98.3 F Sodium Chloride (Sodium Chloride 0.9%) 1,000 mls @ 75 mls/hr IV .[id number] ONE Stop: 01/30/18 09:32 Last Admin: 01/29/18 23:13 Dose: 75 mls/hr eMAR Start Stop Document 01/29/18 23:13 MS (Rec: 01/29/18 23:14 MS [id number]) Intravenous Solution Start Date 01/29/18 Start Time 20:30 Sodium Chloride (Sodium Chloride 0.9%) 1,000 mls @ 100 mls/hr IV .Q10H OMAR Last Admin: 01/29/18 23:13 Dose: Comments: Changed to from 75 ml/hr to 100 ml/hr as per eMAR Start Stop Document 01/29/18 23:13 MS (Rec: 01/29/18 23:13 MS [id number]) Intravenous Solution Start Date 01/29/18 Start Time 23:13 Discontinued Medications Ceftriaxone Sodium (Rocephin 1 Gram Ivpb) 1 gm in 100 mls @ 100 mls/hr IVPB STAT STA PRN Reason: Protocol Stop: 01/30/18 00:54 Last Admin: 01/30/18 00:18 Dose: 100 mls/hr eMAR Start Stop Document 01/30/18 00:18 MS (Rec: 01/30/18 00:19 MS [id number]) Intravenous Solution Start Date 01/30/18 Start Time 00:18 End Date 01/30/18 End time 01:18 Total Infusion Time 60 - Scribe Statement The provider has reviewed the documentation as recorded by the Scribe Christian Evelyndebbie Provider Scribe Attestation: All medical record entries made by the Scribe were at my direction and personally dictated by me. I have reviewed the chart and agree that the record accurately reflects my personal performance of the history, physical exam, medical decision making, and the department course for this patient. I have also personally directed, reviewed, and agree with the discharge instructions and disposition. Disposition/Present on Arrival - Present on Arrival Any Indicators Present on Arrival: No History of DVT/PE: No History of Uncontrolled Diabetes: No Urinary Catheter: Yes History of Decub. Ulcer: No History Surgical Site Infection Following: None - Disposition Have Diagnosis and Disposition been Completed?: Yes Diagnosis: UTI (urinary tract infection), Dehydration Disposition: HOSPITALIZED Disposition Time: 22:30 Condition: STABLE
[2018-01-29 23:49] LABS: URINE BACTERIA FEW (NEG); URINE EPITHELIAL CELLS 0 - 2 /hpf (0-5); URINE WBC TNTC /hpf (0-6)
[2018-01-29] MEDS ORDERED: cefTRIAXone 1 gm 1 GM/100 ML BAG IVPB STA (23:55)
[2018-01-30 02:40] VITALS: BMI 17.9
--- NOTE | 2018-01-30 03:03 | CP.PCM.PN ---
Subjective - Date & Time of Evaluation Date of Evaluation: 01/30/18 Time of Evaluation: 03:03 - Subjective Subjective: S: Patient was seen as Temp. was 100.7*F. Patient is not responding to any questions. Medical record was reviewed. O: Last Vital Signs 3 Temp 100.7 F H 01/30/18 03:26 Pulse 99 H 01/30/18 01:27 Resp 16 01/30/18 01:47 BP 115/65 01/30/18 01:47 Pulse Ox 97 01/30/18 01:47 LUNGS:Normal breating pattern. A:Fever. UTI. P:Tylenol suppository as ordered. Objective - Vital Signs/Intake and Output Vital Signs (last 24 hours): Temp Pulse Resp BP Pulse Ox 100.7 F H 99 H 16 115/65 97 01/30/18 01:27 01/30/18 01:27 01/30/18 01:47 01/30/18 01:47 01/30/18 01:47 - Medications Medications: Current Medications Sodium Chloride (Sodium Chloride 0.9%) 1,000 mls @ 75 mls/hr IV .[id number] ONE Stop: 01/30/18 09:32 Last Admin: 01/29/18 23:13 Dose: 75 mls/hr Sodium Chloride (Sodium Chloride 0.9%) 1,000 mls @ 100 mls/hr IV .Q10H [facility] Last Admin: 01/29/18 23:13 Dose: Not Given
[2018-01-30 07:14] LABS: HEMOGLOBIN 9.3 g/dL (14.0-18.0); MEAN CELL VOLUME 91.4 fl (80.0-105.0); MEAN CORPUSCULAR HEMOGLOBIN 29.7 pg (25.0-35.0); MEAN CORPUSCULAR HGB CONC 32.5 g/dl (31.0-37.0); MEAN PLATELET VOLUME 9.7 fl (7.0-11.0); RBC 3.13 10^6/uL (3.5-6.1); RED CELL DISTRIBUTION WIDTH 14.6 % (11.5-14.5); WHITE BLOOD COUNT 10.3 10^3/ul (4.5-11.0)
--- NOTE | 2018-01-30 07:17 | CP.PCM.HP ---
<Clary Boothe - Last Filed: 01/30/18 12:56> History of Present Illness - History of Present Illness History of Present Illness: H&P for Stanton David PGY2 This is an 82yo male with past medical history of HTN, CAD, CVA, DM, Alzheimers dementia, CKD IIIb, UTI who was brought in from [place] [facility] for confusion. Patient was evaluated at bedside. He was confused, but follows some commands. Baseline mental status is unknown. ROS could not be obtained. In the ED, patient was found to be febrile with leukocytosis. U/A was positive for UTI. CXR was negative for acute pathology. Head CT did not show any acute intracranial abnormalities. Past medical history: HTN, CAD, CVA, DM, Alzheimers dementia, CKD IIIb, mesenteric ischemia s/p angio, macular degeneration, UTI Past surgical history: appendectomy, SMA angioplasty Home meds: As per MAR Allergies: NKDA Social history: No EtOH, tobacco or drug use. Bed-bound Advanced directive via POLST: DNI Present on Admission - Present on Admission Any Indicators Present on Admission: Yes Decubitus Ulcer Present: Yes Decubitus Ulcer Location: sacral Decubitus Ulcer Stage: I Review of Systems - Review of Systems Systems not reviewed;Unavailable: Dementia, Other (lethargic) Past Patient History - Infectious Disease Hx of Infectious Diseases: None - Tetanus Immunizations Tetanus Immunization: Unknown - Past Social History Smoking Status: Former Smoker - CARDIAC Hx Cardiac Disorders: Yes Hx Hypertension: Yes - PULMONARY Hx Respiratory Disorders: No - NEUROLOGICAL HX Cerebrovascular Accident: Yes - HEENT Hx HEENT Problems: Yes Hx Macular Degeneration: Yes Other/Comment: egd for removal of foreign body 06/08/14 - RENAL Hx Chronic Kidney Disease: No - ENDOCRINE/METABOLIC Hx Diabetes Mellitus Type 2: Yes - HEMATOLOGICAL/ONCOLOGICAL Hx Cancer: No - INTEGUMENTARY Hx Dermatological Problems: Yes Hx Basil Cell: No Other/Comment: left 5th toe purple discolored, redness to buttocks/sacrum no openings, redness r hip, 4cm x 3cm necrotic right heel surrounded by red skin dry skin to r ft, thick toenails both feet - MUSCULOSKELETAL/RHEUMATOLOGICAL Hx Falls: Yes - GASTROINTESTINAL Hx Gastrointestinal Disorders: Yes (CONSTIPATION.) - GENITOURINARY/GYNECOLOGICAL Hx Genitourinary Disorders: Yes Hx Incontinence: Yes Hx Urinary Tract Infection: Yes (frequent) - PSYCHIATRIC Hx Psychophysiologic Disorder: Yes Hx Depression: Yes Hx Emotional Abuse: No Hx Physical Abuse: No Hx Substance Use: No - SURGICAL HISTORY Hx Mastectomy: No - ANESTHESIA Hx Anesthesia: Yes Hx Anesthesia Reactions: Yes (unknown; 2017) Hx Malignant Hyperthermia: No Meds Home Medications: Home Medication List Medication Instructions Recorded Confirmed Type Acetaminophen [Tylenol 650 mg Supp] 650 mg RC Q4H PRN 7 Days #1 sup NS 01/30/18 Rx MDD 6 doses Allergies/Adverse Reactions: Allergies Allergy/AdvReac Type Severity Reaction Status Date / Time No Known Allergies Allergy Verified 06/16/17 16:30 Physical Exam - Constitutional Appears: No Acute Distress, Chronically Ill - Head Exam Head Exam: ATRAUMATIC, NORMAL INSPECTION, NORMOCEPHALIC - Eye Exam Eye Exam: Normal appearance - ENT Exam ENT Exam: Mucous Membranes Dry - Respiratory Exam Respiratory Exam: Clear to Auscultation Bilateral, NORMAL BREATHING PATTERN. absent: Rales, Rhonchi, Wheezes - Cardiovascular Exam Cardiovascular Exam: REGULAR RHYTHM, +S1, +S2. absent: Gallop, Rubs, Systolic Murmur - GI/Abdominal Exam GI & Abdominal Exam: Normal Bowel Sounds, Soft. absent: Rigid, Tenderness - Extremities Exam Extremities exam: Negative for: pedal edema Additional comments: R heel wound- dressing intact last changed yesterday. Clean and dry - Neurological Exam Neurological exam: CN II-XII Intact - Skin Skin Exam: Dry, Warm Results - Vital Signs Recent Vital Signs: Last Vital Signs Temp 98.3 F 01/30/18 04:26 Pulse 99 H 01/30/18 01:27 Resp 16 01/30/18 01:47 BP 115/65 01/30/18 01:47 Pulse Ox 97 01/30/18 01:47 - Labs Result Diagrams: 01/30/18 07:00 01/30/18 07:00 Assessment & Plan - Assessment and Plan (Free Text) Assessment: This is an 82yo male with past medical history of HTN, CAD, CVA, DM, Alzheimers dementia, CKD IIIb, UTI who was brought in from [place] [facility] for confusion and was found to have UTI. Plan: 1. Confusion - most likely secondary to UTI with hx of underlying dementia - Head CT negative for acute pathology - Continue Namenda and Remeron - Continue re-orientation and patient education - Evaluated by speech/swallow who recommended puree diet (baseline diet at [place] [facility]) - aspiration precaution 2. UTI - leukocytosis improving - Blood culture and urine culture pending - Rocephin - Tylenol prn fever 3. CKD stage IIIb - Cr: 2.4. Baseline ~2.2 - D5/NS@75 - Will continue to monitor electrolytes and renal function 4. Hx of CAD - Lipitor 5. Anemia (stable) - Hgb stable and at baseline ~9 - normocytic - no overt signs of bleeding GI ppx: Pepcid DVT ppx: Heparin SC Case seen, discussed and reviewed with Dr. Newman. Stanton Boothe PGY2 - Date & Time Date: 01/30/18 Time: 08:00 <Jakob Newman S - Last Filed: 01/30/18 20:14> Results - Vital Signs Recent Vital Signs: Last Vital Signs Temp 97.6 F 01/30/18 16:55 Pulse 72 01/30/18 16:55 Resp 18 01/30/18 16:55 BP 105/62 01/30/18 16:55 Pulse Ox 96 01/30/18 16:55 - Labs Result Diagrams: 01/30/18 07:00 01/30/18 07:00 Labs: Laboratory Results - last 24 hr 01/30/18 01/30/18 07:00 07:00 WBC 10.3 D RBC 3.13 L Hgb 9.3 L Hct 28.6 L MCV 91.4 MCH 29.7 MCHC 32.5 RDW 14.6 H Plt Count 251 MPV 9.7 Sodium 144 Potassium 5.1 H Chloride 107 Carbon Dioxide 26 Anion Gap 16 BUN 43 H Creatinine 2.4 H Est GFR ( Amer) 32 Est GFR (Non-Af Amer) 26 Random Glucose 96 Calcium 8.5 Assessment & Plan - Assessment and Plan (Free Text) Plan: Pt seen and examined. Agree with the note of the medical collections. Meds and labs reviewed. Pt most likely has UTI. He will bee seen by ID. IVF started. Spoke to daughter to give update. Old records reviewed.
[2018-01-30 07:25] LABS: CALCIUM 8.5 mg/dL (8.4-10.5)
--- NOTE | 2018-01-30 08:59 | RAD ---
HISTORY: r/o infiltrate COMPARISON: 06/29/2017 FINDINGS: LUNGS: No active pulmonary disease. PLEURA: No significant pleural effusion identified, no pneumothorax apparent. CARDIOVASCULAR: Aortic tortuosity. Mild cardiomegaly OSSEOUS STRUCTURES: No significant abnormalities. VISUALIZED UPPER ABDOMEN: Normal. OTHER FINDINGS: None. IMPRESSION: No active disease.
[2018-01-30] MEDS ORDERED: Dextrose 5%/0.9% NS 1,000 ML IV SCH (09:45)
--- NOTE | 2018-01-30 15:02 | CARD ---
APPROVED REPORT EKG Measurement Heart [id number] <Conclusion> Sinus tachycardia Nonspecific ST and T wave abnormality Abnormal ECG
[2018-01-30 16:59] VITALS: O2SAT 96
[2018-01-31 08:01] VITALS: BP 114/55; PULSE 79; RESP 16; TEMP 97.8
--- NOTE | 2018-01-31 09:00 | CP.PCM.DIS ---
<TlClary - Last Filed: 01/31/18 10:21> Provider - Provider Date of Admission: 01/29/18 23:55 Attending physician: Jakob Newman MD Primary care physician: Jakob Newman MD Time Spent in preparation of Discharge (in minutes): 35 Hospital Course - Lab Results Lab Results: Most Recent Lab Values WBC 10.3 10^3/ul (4.5-11.0) D 01/30/18 07:00 RBC 3.13 10^6/uL (3.5-6.1) L 01/30/18 07:00 Hgb 9.3 g/dL (14.0-18.0) L 01/30/18 07:00 Hct 28.6 % (42.0-52.0) L 01/30/18 07:00 MCV 91.4 fl (80.0-105.0) 01/30/18 07:00 MCH 29.7 pg (25.0-35.0) 01/30/18 07:00 MCHC 32.5 g/dl (31.0-37.0) 01/30/18 07:00 RDW 14.6 % (11.5-14.5) H 01/30/18 07:00 Plt Count 251 10^3/uL (120.0-450.0) 01/30/18 07:00 MPV 9.7 fl (7.0-11.0) 01/30/18 07:00 Gran % 79.0 % (50.0-68.0) H 01/29/18 20:46 Lymph % (Auto) 14.1 % (22.0-35.0) L 01/29/18 20:46 Garrett % (Auto) 3.3 % (1.0-6.0) 01/29/18 20:46 Eos % (Auto) 3.1 % (1.5-5.0) 01/29/18 20:46 Baso % (Auto) 0.5 % (0.0-3.0) 01/29/18 20:46 Gran # 10.20 (1.4-6.5) H 01/29/18 20:46 Lymph # (Auto) 1.8 (1.2-3.4) 01/29/18 20:46 Garrett # (Auto) 0.4 (0.1-0.6) 01/29/18 20:46 Eos # (Auto) 0.4 (0.0-0.7) 01/29/18 20:46 Baso # (Auto) 0.07 K/mm3 (0.0-2.0) 01/29/18 20:46 Sodium 144 mmol/L (132-148) 01/30/18 07:00 Potassium 5.1 mmol/L (3.6-5.0) H 01/30/18 07:00 Chloride 107 mmol/L (98-107) 01/30/18 07:00 Carbon Dioxide 26 mmol/L (21-33) 01/30/18 07:00 Anion Gap 16 (10-20) 01/30/18 07:00 BUN 43 mg/dL (7-21) H 01/30/18 07:00 Creatinine 2.4 mg/dl (0.8-1.5) H 01/30/18 07:00 Est GFR ( Amer) 32 01/30/18 07:00 Est GFR (Non-Af Amer) 26 01/30/18 07:00 Random Glucose 96 mg/dL (70-110) 01/30/18 07:00 Calcium 8.5 mg/dL (8.4-10.5) 01/30/18 07:00 Magnesium 2.0 mg/dL (1.7-2.2) 01/29/18 20:46 Total Bilirubin 0.2 mg/dL (0.2-1.3) 01/29/18 20:46 AST 43 U/L (17-59) 01/29/18 20:46 ALT 39 U/L (7-56) 01/29/18 20:46 Alkaline Phosphatase 92 U/L (38-126) 01/29/18 20:46 Lactate Dehydrogenase 517 U/L (333-699) 01/29/18 20:46 Total Creatine Kinase 24 U/L (35-230) L 01/29/18 20:46 Troponin I 0.02 ng/mL D 01/29/18 20:46 Total Protein 7.5 g/dL (5.8-8.3) 01/29/18 20:46 Albumin 3.6 g/dL (3.0-4.8) 01/29/18 20:46 Globulin 3.9 gm/dL 01/29/18 20:46 Albumin/Globulin Ratio 0.9 (1.1-1.8) L 01/29/18 20:46 Urine Color Yellow (YELLOW) 01/29/18 23:16 Urine Appearance Sl cloudy (CLEAR) 01/29/18 23:16 Urine pH 6.5 (4.7-8.0) 01/29/18 23:16 Ur Specific [place] 1.020 (1.005-1.035) 01/29/18 23:16 Urine Protein 100 mg/dL (<30 mg/dL) H 01/29/18 23:16 Urine Glucose (UA) Negative mg/dL (NEGATIVE) 01/29/18 23:16 Urine Ketones Negative mg/dL (NEGATIVE) 01/29/18 23:16 Urine Blood Large (NEGATIVE) H 01/29/18 23:16 Urine Nitrate Negative (NEGATIVE) 01/29/18 23:16 Urine Bilirubin Negative (NEGATIVE) 01/29/18 23:16 Urine Urobilinogen 0.2 E.U./dL (<1 E.U./dL) 01/29/18 23:16 Ur Leukocyte Esterase Large Addie/uL (NEGATIVE) H 01/29/18 23:16 Urine RBC 2 - 5 /hpf (0-2) 01/29/18 23:16 Urine WBC Tntc /hpf (0-6) 01/29/18 23:16 Ur Epithelial Cells 0 - 2 /hpf (0-5) 01/29/18 23:16 Urine Bacteria Few (NEG) 01/29/18 23:16 - Hospital Course Hospital Course: This is an 82yo male with past medical history of HTN, CAD, CVA, DM, Alzheimers dementia, CKD IIIb, UTI who was brought in from half-way for confusion and was found to have UTI. Patient was treated with empiric antibiotics. He was afebrile overnight and leukocytosis resolved. The micro for the urine showed no growth. As for the confusion, head CT was noted to be negative for acute pathology. He was evaluated by speech/swallow who reports he can resume his regular diet. His mental status improved and is awake and alert. Patient denies having any pain, chest pain, shortness of breath, nausea/vomiting/diarrhea, fever/chills, numbness/tingling, dysuria or hematuria. He is hemodynamically stable. Patient will be transferred back to [facility] and his medications will be resumed. He will not need antibiotics since the urine culture did not show any growth. - Date & Time of H&P Date of H&P: 01/30/18 Time of H&P: 10:21 Discharge Exam - Head Exam Head Exam: ATRAUMATIC, NORMAL INSPECTION, NORMOCEPHALIC - Eye Exam Eye Exam: Normal appearance, PERRL Pupil Exam: NORMAL ACCOMODATION - ENT Exam ENT Exam: Mucous Membranes Moist - Respiratory Exam Respiratory Exam: Clear to PA & Lateral, NORMAL BREATHING PATTERN, UNREMARKABLE. absent: Rales, Rhonchi, Wheezes - Cardiovascular Exam Cardiovascular Exam: REGULAR RHYTHM, +S1, +S2. absent: Gallop, Rubs, Systolic Murmur - GI/Abdominal Exam GI & Abdominal Exam: Normal Bowel Sounds, Soft, Unremarkable. absent: Mass, Rebound, Rigid, Tenderness - Extremities Exam Additional comments: R heel ulceration- mild - Back Exam Additional comments: stage I sacral decub - Neurological Exam Neurological exam: CN II-XII Intact - Psychiatric Exam Psychiatric exam: Agitated - Skin Skin Exam: Dry, Warm Discharge Plan - Discharge Medications Prescriptions: Acetaminophen [Tylenol 650 mg Supp] 650 mg RC Q4H PRN 7 Days #1 sup NS MDD 6 doses PRN Reason: temp>100.4*F - Follow Up Plan Condition: STABLE Disposition: TRANSF TO SNF Instructions: Urinary Tract Infection, Adult (DC) Additional Instructions: DR. NEWMAN TO FOLLOW AT [facility]. MONITOR FOR ANY CHANGE IN MENTAL STATUS AND REPORT TO MD. Referrals: Jakob Newman MD [Primary Care Provider] - <Jakob Newman - Last Filed: 01/31/18 16:58> Provider - Provider Date of Admission: 01/29/18 23:55 Attending physician: Jakob Newman MD Primary care physician: Jakob Newman MD Hospital Course - Lab Results Lab Results: Micro Results 01/30/18 14:00 Blood Blood Culture - Preliminary NO GROWTH AFTER 24 HOURS 01/30/18 13:20 Blood Blood Culture - Preliminary NO GROWTH AFTER 24 HOURS Most Recent Lab Values WBC 10.3 10^3/ul (4.5-11.0) D 01/30/18 07:00 RBC 3.13 10^6/uL (3.5-6.1) L 01/30/18 07:00 Hgb 9.3 g/dL (14.0-18.0) L 01/30/18 07:00 Hct 28.6 % (42.0-52.0) L 01/30/18 07:00 MCV 91.4 fl (80.0-105.0) 01/30/18 07:00 MCH 29.7 pg (25.0-35.0) 01/30/18 07:00 MCHC 32.5 g/dl (31.0-37.0) 01/30/18 07:00 RDW 14.6 % (11.5-14.5) H 01/30/18 07:00 Plt Count 251 10^3/uL (120.0-450.0) 01/30/18 07:00 MPV 9.7 fl (7.0-11.0) 01/30/18 07:00 Gran % 79.0 % (50.0-68.0) H 01/29/18 20:46 Lymph % (Auto) 14.1 % (22.0-35.0) L 01/29/18 20:46 Garrett % (Auto) 3.3 % (1.0-6.0) 01/29/18 20:46 Eos % (Auto) 3.1 % (1.5-5.0) 01/29/18 20:46 Baso % (Auto) 0.5 % (0.0-3.0) 01/29/18 20:46 Gran # 10.20 (1.4-6.5) H 01/29/18 20:46 Lymph # (Auto) 1.8 (1.2-3.4) 01/29/18 20:46 Garrett # (Auto) 0.4 (0.1-0.6) 01/29/18 20:46 Eos # (Auto) 0.4 (0.0-0.7) 01/29/18 20:46 Baso # (Auto) 0.07 K/mm3 (0.0-2.0) 01/29/18 20:46 Sodium 144 mmol/L (132-148) 01/30/18 07:00 Potassium 5.1 mmol/L (3.6-5.0) H 01/30/18 07:00 Chloride 107 mmol/L (98-107) 01/30/18 07:00 Carbon Dioxide 26 mmol/L (21-33) 01/30/18 07:00 Anion Gap 16 (10-20) 01/30/18 07:00 BUN 43 mg/dL (7-21) H 01/30/18 07:00 Creatinine 2.4 mg/dl (0.8-1.5) H 01/30/18 07:00 Est GFR ( Amer) 32 01/30/18 07:00 Est GFR (Non-Af Amer) 26 01/30/18 07:00 Random Glucose 96 mg/dL (70-110) 01/30/18 07:00 Calcium 8.5 mg/dL (8.4-10.5) 01/30/18 07:00 Magnesium 2.0 mg/dL (1.7-2.2) 01/29/18 20:46 Total Bilirubin 0.2 mg/dL (0.2-1.3) 01/29/18 20:46 AST 43 U/L (17-59) 01/29/18 20:46 ALT 39 U/L (7-56) 01/29/18 20:46 Alkaline Phosphatase 92 U/L (38-126) 01/29/18 20:46 Lactate Dehydrogenase 517 U/L (333-699) 01/29/18 20:46 Total Creatine Kinase 24 U/L (35-230) L 01/29/18 20:46 Troponin I 0.02 ng/mL D 01/29/18 20:46 Total Protein 7.5 g/dL (5.8-8.3) 01/29/18 20:46 Albumin 3.6 g/dL (3.0-4.8) 01/29/18 20:46 Globulin 3.9 gm/dL 01/29/18 20:46 Albumin/Globulin Ratio 0.9 (1.1-1.8) L 01/29/18 20:46 Urine Color Yellow (YELLOW) 01/29/18 23:16 Urine Appearance Sl cloudy (CLEAR) 01/29/18 23:16 Urine pH 6.5 (4.7-8.0) 01/29/18 23:16 Ur Specific [place] 1.020 (1.005-1.035) 01/29/18 23:16 Urine Protein 100 mg/dL (<30 mg/dL) H 01/29/18 23:16 Urine Glucose (UA) Negative mg/dL (NEGATIVE) 01/29/18 23:16 Urine Ketones Negative mg/dL (NEGATIVE) 01/29/18 23:16 Urine Blood Large (NEGATIVE) H 01/29/18 23:16 Urine Nitrate Negative (NEGATIVE) 01/29/18 23:16 Urine Bilirubin Negative (NEGATIVE) 01/29/18 23:16 Urine Urobilinogen 0.2 E.U./dL (<1 E.U./dL) 01/29/18 23:16 Ur Leukocyte Esterase Large Addie/uL (NEGATIVE) H 01/29/18 23:16 Urine RBC 2 - 5 /hpf (0-2) 01/29/18 23:16 Urine WBC Tntc /hpf (0-6) 01/29/18 23:16 Ur Epithelial Cells 0 - 2 /hpf (0-5) 01/29/18 23:16 Urine Bacteria Few (NEG) 01/29/18 23:16 - Hospital Course Hospital Course: Pt seen and examined. Agree with the note of the medical billing associate. Labs and medications have been reviewed. Will D/C to [facility]. No need for Abx. UCx is negative.
[2018-01-31] MEDS ORDERED: cefTRIAXone 1 gm 1 GM/100 ML BAG IVPB SCH (10:00)
== END 2018-01-31 12:17 | DRG 690 ==
LOC: ED 19:41 → ERH 23:55 → 3RSO 01-30 01:52
PROVIDERS: ADMIT Internal Medicine Nephrology; ATTEND Internal Medicine Nephrology
DX: N39.0 Urinary tract infection, site not specified (principal); L97.419 Non-pressure chronic ulcer of right heel and midfoot with unspecified severity; E11.622 Type 2 diabetes mellitus with other skin ulcer; E86.0 Dehydration; I12.9 Hypertensive chronic kidney disease with stage 1 through stage 4 chronic kidney disease, or unspecified chronic kidney disease; E11.22 Type 2 diabetes mellitus with diabetic chronic kidney disease; N18.3 Chronic kidney disease, stage 3 (moderate); L89.151 Pressure ulcer of sacral region, stage 1; I25.10 Atherosclerotic heart disease of native coronary artery without angina pectoris; G30.9 Alzheimer's disease, unspecified; F02.80 Dementia in other diseases classified elsewhere, unspecified severity, without behavioral disturbance, psychotic disturbance, mood disturbance, and anxiety; H35.30 Unspecified macular degeneration; J32.9 Chronic sinusitis, unspecified; D64.9 Anemia, unspecified; Z86.73 Personal history of transient ischemic attack (TIA), and cerebral infarction without residual deficits; Z74.01 Bed confinement status; Z87.891 Personal history of nicotine dependence

== ENCOUNTER 2018-03-01 17:18 | Inpatient (IN) | payer MEDICARE, OTHER ==
--- NOTE | 2018-03-01 17:35 | ED PDOC ---
Arrival/HPI - General Historian: Patient, EMS - History of Present Illness Time/Duration: 1-3 hours Context: Other (retirement) <Hina Negron - Last Filed: 03/01/18 22:28> <Tavares Turner P - Last Filed: 03/01/18 22:35> - General Time Seen by Provider: 03/01/18 17:20 - History of Present Illness Narrative History of Present Illness (Text): 03/01/18 17:32 This 82 year old male, whose past medical history includes hypertension, hyperlipidemia and frequent UTI's, brought into the emergency department by EMS after fall 2 hours ago. As per EMS, and retirement, patient fell out of bed. Patient is mildly confused at baseline and unable to provide any further history. Patient denies any pain or discomfort at this time. HPI and ROS limited. (Hina Negron) Past Medical History - Provider Review Nursing Documentation Reviewed: Yes - Infectious Disease Hx of Infectious Diseases: None - Tetanus Immunization Tetanus Immunization: Unknown - Cardiac Hx Cardiac Disorders: Yes Hx Hypertension: Yes - Pulmonary Hx Respiratory Disorders: No - Neurological HX Cerebrovascular Accident: Yes - HEENT Hx HEENT Disorder: Yes Hx Macular Degeneration: Yes Other/Comment: egd for removal of foreign body 06/08/14 - Renal Hx Renal Disorder: No - Endocrine/Metabolic Hx Diabetes Mellitus Type 2: Yes - Hematological/Oncological Hx Cancer: No - Integumentary Hx Dermatological Disorder: Yes Hx Basal Cell Carcinoma: No Other/Comment: left 5th toe purple discolored, redness to buttocks/sacrum no openings, redness r hip, 4cm x 3cm necrotic right heel surrounded by red skin dry skin to r ft, thick toenails both feet - Musculoskeletal/Rheumatological Hx Falls: Yes - Gastrointestinal Hx Gastrointestinal Disorders: Yes (CONSTIPATION.) - Genitourinary/Gynecological Hx Genitourinary Disorders: Yes Hx Incontinence: Yes Hx Urinary Tract Infection: Yes (frequent) - Psychiatric Hx Psychophysiologic Disorder: Yes Hx Depression: Yes Hx Emotional Abuse: No Hx Physical Abuse: No Hx Substance Use: No - Surgical History Hx Mastectomy: No - Anesthesia Hx Anesthesia: Yes Hx Anesthesia Reactions: Yes (unknown; 2016) Hx Malignant Hyperthermia: No - Suicidal Assessment Feels Threatened In Home Enviroment: No <Hina Negron - Last Filed: 03/01/18 22:28> Family/Social History - Physician Review Nursing Documentation Reviewed: Yes Family/Social History: Other Smoking Status: Former Smoker Hx Alcohol Use: No Hx Substance Use: No Hx Substance Use Treatment: No <Hina Negron P - Last Filed: 03/01/18 22:28> Allergies/Home Meds <Hina Negron P - Last Filed: 03/01/18 22:28> <Tavares Turner P - Last Filed: 03/01/18 22:35> Allergies/Adverse Reactions: Allergies No Known Allergies Allergy (Verified 03/01/18 17:51) Per EMS and which is at home. Pt is confused due to dementia Hx Home Medications: Home Meds Medication Instructions Recorded Confirmed Atorvastatin [Lipitor] 10 mg PO HS 06/16/17 01/30/18 Acetaminophen [Athenol] 325 mg PO Q6 01/30/18 01/30/18 Famotidine [Pepcid] 20 mg PO DAILY 01/30/18 01/30/18 Memantine [Namenda] 10 mg PO DAILY 01/30/18 01/30/18 Mirtazapine [Remeron] 15 mg PO DAILY 01/30/18 01/30/18 Review of Systems - Review of Systems Systems not reviewed;Unavailable: Other (information taken from BLS, and patient ) Constitutional: Normal Eyes: Normal ENT: Normal Respiratory: Normal Cardiovascular: Normal Gastrointestinal: Normal Genitourinary Male: Normal Musculoskeletal: Other (right forehead bruise, and small abrasion) Skin: Normal Neurological: Normal. absent: Headache Endocrine: Normal Hemo/Lymphatic: Normal Psychiatric: Normal <Hina Negron P - Last Filed: 03/01/18 22:28> Physical Exam Temperature: Afebrile Blood Pressure: Normal Pulse: Regular Respiratory Rate: Normal Appearance: Positive for: Well-Appearing, Non-Toxic, Comfortable Pain Distress: None Mental Status: Positive for: Confused, other (Alert to name and place) - Systems Exam Head: Present: Atraumatic, Normocephalic, Ecchymosis, Abrasion Pupils: Present: PERRL Extroacular Muscles: Present: EOMI Conjunctiva: Present: Normal Mouth: Present: Moist Mucous Membranes Neck: Present: Normal Range of Motion, Trachea Midline. No: Meningeal Signs, MIDLINE TENDERNESS, Paraspinal Tenderness Respiratory/Chest: Present: Clear to Auscultation, Good Air Exchange. No: Respiratory Distress, Accessory Muscle Use, Wheezes, Retracting Cardiovascular: Present: Regular Rate and Rhythm, Normal S1, S2. No: Murmurs Abdomen: No: Tenderness Upper Extremity: Present: Normal Inspection, NORMAL PULSES, Neurovascularly Intact, Capillary Refill < 2s Lower Extremity: Present: Normal Inspection, NORMAL PULSES, Neurovascularly Intact, Capillary Refill < 2 s, Other (baseline: partial position). No: Edema, CALF TENDERNESS Neurological: Present: GCS=15, CN II-XII Intact, Speech Normal Skin: Present: Warm, Dry, Normal Color. No: Rashes Psychiatric: Present: Alert, Normal Insight, Normal Concentration <Hina Negron P - Last Filed: 03/01/18 22:28> Vital Signs Temp Pulse Resp BP Pulse Ox 03/01/18 21:17 99.7 F H 03/01/18 20:56 87 18 109/62 97 03/01/18 20:00 100.5 F H 03/01/18 17:46 100.5 F H 83 20 103/67 99 Medical Decision Making Re-evaluation Time: 21:51 Reassessment Condition: Re-examined, Improving,but remains with symptoms - Critical Care Critical Care Minutes: Other (35 minutes) - Lab Interpretations I have reviewed the lab results: Yes Interpretation: Abnormal lab values - EKG Interpretation Interpreted by ED Physician: Yes (NSR @ 82 bpm. T-wave inversion on III, V2, V3 , V4, V5, V6. No ST changes) Type: 12 lead EKG Comparison: Different from prev. EKG <Hina Negron P - Last Filed: 03/01/18 22:28> <Tavares Turner P - Last Filed: 03/01/18 22:35> ED Course and Treatment: 03/01/18 19:50 Dr. Stein was paged 03/01/18 21:[address] Harper regarding Hx. fall, fever, ams, elevated Troponin, pyelonephritis. I reviewed VS , labs, UA, CT head w/o. CT head was negative for ICH. I told Dr. Harper, that Dr. Turner spoke with Dr. Stein, who recommended medical treatment and to order ASA, Heparin. Dr. Harper agreed with plan for admission. (Hina Negron) - Critical Care Narrative Critical Care (Text): 03/01/18 20:[address] Stein cardiology, no intervention at this time, agrees with plan of heparin gtt and ASA. (Tavares Turner) - Lab Interpretations Lab Results: 03/01/18 19:40 03/01/18 18:54 Lab Results 03/01/18 21:10: Urine Color Yellow, Urine Appearance Cloudy, Urine pH 6.0, Ur Specific [place] 1.020, Urine Protein 100 H, Urine Glucose (UA) Negative, Urine Ketones Negative, Urine Blood Moderate H, Urine Nitrate Negative, Urine Bilirubin Negative, Urine Urobilinogen 0.2, Ur Leukocyte Esterase Large H, Urine RBC 2 - 5, Urine WBC Tntc, Ur Epithelial Cells 0 - 2, Urine Bacteria Many 03/01/18 19:40: pO2 105 H, VBG pH 7.32, VBG pCO2 53.0, VBG HCO3 27.3, VBG Total CO2 28.9 H, VBG O2 Sat (Calc) 98.9 H, VBG Base Excess 0.3, VBG Potassium 4.3, Glucose 111 H, Lactate 1.6, FiO2 21.0, Sodium 141.0, Chloride 109.0 H, Venous Blood Potassium 4.3 03/01/18 19:40: PT 12.9 H, INR 1.13 H, APTT 33.2 03/01/18 19:40: WBC 9.3, RBC 3.35 L, Hgb 10.3 L, Hct 31.3 L, MCV 93.4, MCH 30.7 , MCHC 32.9, RDW 14.1, Plt Count 301, MPV 9.8, Gran % 63.1, Lymph % (Auto) 23.3 , [place] % (Auto) 7.7 H, Eos % (Auto) 4.8, Baso % (Auto) 1.1, Gran # 5.89, Lymph # (Auto) 2.2, [place] # (Auto) 0.7 H, Eos # (Auto) 0.5, Baso # (Auto) 0.10 03/01/18 18:54: Sodium 142, Potassium 4.2, Chloride 107, Carbon Dioxide 24, Anion Gap 15, BUN 48 H, Creatinine 2.1 H, Est GFR ( Amer) 37, Est GFR ( Non-Af Amer) 31, Random Glucose 101, Calcium 8.6, Phosphorus 3.9, Magnesium 1.9 , Total Bilirubin 0.3, AST 90 H D, ALT 60 H, Alkaline Phosphatase 73, Lactate Dehydrogenase 698, Total Creatine Kinase 94, Troponin I 3.87 H* D, Total Protein 7.0, Albumin 3.3, Globulin 3.7, Albumin/Globulin Ratio 0.9 L - RAD Interpretation Narrative RAD Interpretations (Text): 03/01/18 21:16 FINDINGS: Brain: Hypodense changes within the right cerebellum in connection with volume loss consistent with previous ischemic event or insult. Benign bilateral globus pallidus bilateral thalamic calcifications are present. Moderate volume loss is seen in keeping with age, with moderate decrease in attenuation of the periventricular white matter likely related to small vessel ischemic change. The brain otherwise appears unremarkable. There is normal watson-white matter differentiation, demonstrating no edema, mass effect, acute hemorrhage, or additional mass. Ventricles: Unremarkable. No ventriculomegaly. Bones/joints: Unremarkable. No acute fracture. Soft tissues: Unremarkable. Sinuses: Unremarkable as visualized. No acute sinusitis. Mastoid air cells: Unremarkable as visualized. No mastoid effusion. Sella: A sellar mass is seen. His measures approximately 2.2 x 1.9 x 1.9 cm. There slightly larger compared to previous exam. IMPRESSION: Moderate age-appropriate atrophy and associated chronic white matter ischemic changes, with no evidence of an acute intracranial abnormality. 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 This is slightly larger compared to prior exam by a factor of 2 mm. Chronic encephalomalacia right cerebellar hemisphere which appears unchanged. No significant injury is noted to the patient's head. (Hina Negron) Radiology Orders: 03/01/18 17:50 CHEST PORTABLE [RAD] Stat 03/01/18 17:53 HEAD W/O CONTRAST [CT] Stat - Medication Orders Current Medication Orders: Acetaminophen (Tylenol 325mg Tab) 975 mg PO ONCE PRN PRN Reason: Fever >100.4 F Stop: 03/01/18 23:59 Last Admin: 03/01/18 20:00 Dose: 975 mg MAR Pain/Vitals Document 03/01/18 20:00 OCS (Rec: 03/01/18 20:00 OCS [id number]) Pain Reassessment Is This A Pain ReAssessment? No Sleep Is patient sleeping during reassessment? No Presence of Pain Presence of Pain No Vitals Temperature (97.6 F-99.6 F) 100.5 F Temperature Source Rectal Heparin Sodium/Sodium Chloride (Heparin 91258 Units/250ml 1/2 Normal Saline) 25 ,000 units in 250 mls @ 6.085 mls/hr IV .Q24H OMAR; 12 UNITS/KG/HR PRN Reason: Protocol Last Admin: 03/01/18 21:59 Dose: 6.085 mls/hr eMAR Start Stop Document 03/01/18 21:59 OCS (Rec: 03/01/18 21:59 OCS [facility]) Intravenous Solution Start Date 03/01/18 Start Time 21:59 MAR aPTT Document 03/01/18 21:59 OCS (Rec: 03/01/18 21:59 OCS [facility]) aPTT aPTT (secs) 33.2 Sodium Chloride (Sodium Chloride 0.9%) 1,000 mls @ 100 mls/hr IV .Q10H OMAR Last Admin: 03/01/18 21:57 Dose: 100 mls/hr eMAR Start Stop Document 03/01/18 21:57 OCS (Rec: 03/01/18 21:57 OCS [facility]) Intravenous Solution Start Date 03/01/18 Start Time 21:57 Discontinued Medications Aspirin (Aspirin) 325 mg PO STAT STA Stop: 03/01/18 21:18 Last Admin: 03/01/18 21:56 Dose: 325 mg Heparin Sodium (Porcine) (Heparin) 3,500 units 70 units/kg (3500 units) IV ONCE ONE PRN Reason: Protocol Stop: 03/01/18 21:20 Last Admin: 03/01/18 21:55 Dose: 3,500 units eMAR Start Stop Document 03/01/18 21:55 OCS (Rec: 03/01/18 21:56 OCS [facility]) Intravenous Solution Start Date 03/01/18 Start Time 21:55 End Date 03/01/18 End time 21:57 Total Infusion Time 2 MAR aPTT Document 03/01/18 21:55 OCS (Rec: 03/01/18 21:56 OCS [facility]) aPTT aPTT (secs) 33.2 Sodium Chloride (Sodium Chloride 0.9%) 1,000 mls @ 999 mls/hr IV .Q1H1M STA Stop: 03/01/18 18:53 Last Admin: 03/01/18 18:39 Dose: 999 mls/hr eMAR Start Stop Document 03/01/18 18:39 OCS (Rec: 03/01/18 18:39 OCS [id number]) Intravenous Solution Start Date 03/01/18 Start Time 18:39 End Date 03/01/18 End time 19:40 Total Infusion Time 61 Ceftriaxone Sodium (Rocephin 1 Gram Ivpb) 1 gm in 100 mls @ 200 mls/hr IVPB STAT STA PRN Reason: Protocol Stop: 03/01/18 22:01 Last Admin: 03/01/18 21:58 Dose: 200 mls/hr eMAR Start Stop Document 03/01/18 21:58 OCS (Rec: 03/01/18 21:58 [facility] Intravenous Solution Start Date 03/01/18 Start Time 21:58 End Date 03/01/18 End time 22:28 Total Infusion Time 30 Tetanus/Reduced Diphtheria/Acell Pertussis (Boostrix Vaccine Inj) 0.5 ml IM .ONCE ONE Stop: 03/01/18 21:56 - PA / [employer]OTE[employer] FI[employer] TECHNICIAN / Resident Statement / has reviewed & agrees with the documentation as recorded. <Tavares Turner P - Last Filed: 03/01/18 22:35> Disposition/Present on Arrival - Present on Arrival Any Indicators Present on Arrival: No History of DVT/PE: No History of Uncontrolled Diabetes: No Urinary Catheter: Yes History Surgical Site Infection Following: None - Disposition Have Diagnosis and Disposition been Completed?: Yes Disposition Time: 21:54 <Hina Negron P - Last Filed: 03/01/18 22:28> <Tavares Turner P - Last Filed: 03/01/18 22:35> - Disposition Diagnosis: Pyelonephritis, Non-STEMI (non-ST elevated myocardial infarction) Disposition: HOSPITALIZED Patient Problems: Current Active Problems Problem Status Onset Non-STEMI (non-ST elevated myocardial infarction) Acute Pyelonephritis Acute Condition: STABLE
[2018-03-01] MEDS ORDERED: Sodium Chloride 0.9% 1,000 ML IV STA (17:53)
[2018-03-01 19:09] LABS: ALB/GLOB RATIO 0.9 (1.1-1.8); ALBUMIN 3.3 g/dL (3.0-4.8); CALCIUM 8.6 mg/dL (8.4-10.5)
[2018-03-01 19:28] LABS: TROPONIN I 3.87 ng/mL
[2018-03-01 19:56] LABS: BASO # 0.1 K/mm3 (0.0-2.0); BASO % 1.1 % (0.0-3.0); EOS # 0.5 (0.0-0.7); EOS % 4.8 % (1.5-5.0); GRAN # 5.89 (1.4-6.5); GRAN % 63.1 % (50.0-68.0); HEMOGLOBIN 10.3 g/dL (14.0-18.0); LYMPH # 2.2 (1.2-3.4); LYMPH % 23.3 % (22.0-35.0); MEAN CELL VOLUME 93.4 fl (80.0-105.0); MEAN CORPUSCULAR HEMOGLOBIN 30.7 pg (25.0-35.0); MEAN CORPUSCULAR HGB CONC 32.9 g/dl (31.0-37.0); MEAN PLATELET VOLUME 9.8 fl (7.0-11.0); MONO # 0.7 (0.1-0.6); MONO % 7.7 % (1.0-6.0); RBC 3.35 10^6/uL (3.5-6.1); RED CELL DISTRIBUTION WIDTH 14.1 % (11.5-14.5); WHITE BLOOD COUNT 9.3 10^3/ul (4.5-11.0)
[2018-03-01 19:57] LABS: VENOUS BLOOD GAS BASE EXCESS 0.3 mmol/L (0.0-2.0); VENOUS BLOOD GAS PO2 105 mm/Hg (30-55); VENOUS BLOOD PH 7.32 (7.32-7.43)
[2018-03-01 20:04] LABS: INR 1.13 (0.93-1.08); PARTIAL THROMBOPLASTIN TIME 33.2 Seconds (25.1-36.5); PROTHROMBIN TIME 12.9 SECONDS (9.4-12.5)
[2018-03-01 20:20] VITALS: BMI 17.5
[2018-03-01 21:26] LABS: URINE BILIRUBIN NEGATIVE (NEGATIVE); URINE BLOOD MODERATE (NEGATIVE); URINE GLUCOSE (UA) NEGATIVE (NEGATIVE); URINE LEUKOCYTE ESTERASE LARGE Leu/uL (NEGATIVE); URINE PROTEIN 100 mg/dL (<30 mg/dL); URINE UROBILINOGEN 0.2 E.U./dL (<1 E.U./dL)
[2018-03-01 21:27] LABS: URINE APPEARANCE CLOUDY (CLEAR); URINE COLOR YELLOW (YELLOW)
[2018-03-01] MEDS ORDERED: Heparin25000 units/250ml 1/2NS 25,000 UNITS/250 ML BAG IV SCH (21:30)
[2018-03-01 21:31] LABS: URINE WBC TNTC /hpf (0-6)
[2018-03-01 21:32] LABS: URINE BACTERIA MANY (NEG); URINE EPITHELIAL CELLS 0 - 2 /hpf (0-5)
[2018-03-01] MEDS ORDERED: cefTRIAXone 1 gm 1 GM/100 ML BAG IVPB STA (21:32)
[2018-03-01] MEDS ORDERED: TDAP Vaccine 0.5 mL Syr IM ONE (21:55)
[2018-03-01] MEDS: Sodium Chloride 0.9% 1,000 ML IV SCH (21:57)
--- NOTE | 2018-03-02 08:55 | CT ---
PROCEDURE: CT HEAD WITHOUT CONTRAST. HISTORY: head injury s/p fall COMPARISON: 01/29/18 TECHNIQUE: Axial computed tomography images were obtained through the head/brain without intravenous contrast. Radiation dose: Total exam DLP = 936 mGy-cm. This CT exam was performed using one or more of the following dose reduction techniques: Automated exposure control, adjustment of the mA and/or kV according to patient size, and/or use of iterative reconstruction technique. FINDINGS: HEMORRHAGE: No intracranial hemorrhage. BRAIN: No mass effect or edema. Atrophy and chronic periventricular white matter ischemic disease. VENTRICLES: Unremarkable. No hydrocephalus. CALVARIUM: Unremarkable. PARANASAL SINUSES: Unremarkable as visualized. No significant inflammatory changes. MASTOID AIR CELLS: Unremarkable as visualized. No inflammatory changes. OTHER FINDINGS: None. IMPRESSION: Normal CT of the Head.
[2018-03-02 08:59] LABS: BASO # 0.15 K/mm3 (0.0-2.0); EOS # 0.6 (0.0-0.7); EOS % 7.7 % (1.5-5.0); GRAN # 4.07 (1.4-6.5); GRAN % 53.4 % (50.0-68.0); HEMOGLOBIN 9.8 g/dL (14.0-18.0); LYMPH # 2.2 (1.2-3.4); MEAN CELL VOLUME 93.4 fl (80.0-105.0); MEAN CORPUSCULAR HEMOGLOBIN 30.6 pg (25.0-35.0); MEAN CORPUSCULAR HGB CONC 32.8 g/dl (31.0-37.0); MEAN PLATELET VOLUME 9.9 fl (7.0-11.0); MONO # 0.6 (0.1-0.6); MONO % 7.9 % (1.0-6.0); RBC 3.2 10^6/uL (3.5-6.1); RED CELL DISTRIBUTION WIDTH 13.9 % (11.5-14.5); WHITE BLOOD COUNT 7.6 10^3/ul (4.5-11.0)
[2018-03-02 09:10] LABS: IRON 54 ug/dL (45-180)
[2018-03-02 09:12] LABS: CALCIUM 8.3 mg/dL (8.4-10.5)
--- NOTE | 2018-03-02 09:14 | RAD ---
HISTORY: Sepsis Patient COMPARISON: No prior. FINDINGS: LUNGS: No active pulmonary disease. PLEURA: No significant pleural effusion identified, no pneumothorax apparent. CARDIOVASCULAR: Normal. OSSEOUS STRUCTURES: No significant abnormalities. VISUALIZED UPPER ABDOMEN: Normal. OTHER FINDINGS: None. IMPRESSION: No active disease.
[2018-03-02 09:19] LABS: % IRON SATURATION 25 % (20-55); TOTAL IRON BINDING CAPACITY 215 ug/dL (261-462)
--- NOTE | 2018-03-02 09:21 | HP ---
DATE OF EXAM: 03/01/2018. HISTORY OF PRESENT ILLNESS: Mr. Ennis is an 82-year-old male lives at home with . He was found on the floor. EMS was called and he came to ED. He had elevated troponin in the ER at 3.87. He has baseline dementia, history of frequent falls and decubitus ulcer. Denies any chest pain. No shortness of breath. UA positive. Urine culture pending. No history of agitation. CT of head in the ED was negative for bleed or fracture. PAST MEDICAL HISTORY: Hypertension, CVA, frequent falls, diabetes mellitus type 2, frequent UTIs, incontinence. PAST SURGICAL HISTORY: None. PERSONAL HISTORY: Former smoker. No history of substance abuse. SOCIAL HISTORY: Lives at home with . FAMILY HISTORY: Noncontributory. ALLERGIES: NO KNOWN DRUG ALLERGIES. HOME MEDICATIONS: Lipitor 10 mg daily, Tylenol 650 p.r.n., Pepcid 20 mg daily, Namenda 10 mg daily, Remeron 15 mg daily. REVIEW OF SYSTEMS: As per HPI. Rest of 12-point review of system reviewed and negative. PHYSICAL EXAMINATION: GENERAL: Comfortable in bed, afebrile. VITAL SIGNS: Temperature 98.7, heart rate 80 per minute, respiratory rate 18 per minute, blood pressure 109/62, pulse ox is 97% room air. HEENT: Pallor positive. NECK: No lymphadenopathy. CHEST: Air entry present, equal bilateral. No added sounds. CARDIOVASCULAR: S1, S2 normal. No murmur. No gallop. ABDOMEN: Soft, nontender. No hepatosplenomegaly. EXTREMITIES: No edema. CENTRAL NERVOUS SYSTEM: No cranial nerve palsy. Speech normal. Alert. Communicative. SKIN: Multiple sacral decubitus ulcer. LABORATORY DATA: White count 9.3, hemoglobin 10.3, hematocrit 31.3, platelet 301. Sodium 142, potassium 4.2, BUN 48, creatinine 2.1. UA positive, nitrites positive. LFTs within normal limits. Troponin 3.8. IMAGING STUDIES: As per HPI. ASSESSMENT: 1. History of recurrent falls, recent fall at home. 2. Non-ST elevation myocardial infarction. 3. Chronic kidney disease. 4. Anemia. 5. Dementia. 6. Recurrent urinary tract infections. 7. CKD III PLAN: He will be admitted to the hospital tele monitoring. Cardiology consultation with Dr. Stein requested. He was started on heparin drip, Pepcid 10 mg daily, Namenda 10 mg daily, Remeron 15 mg daily, IV fluids at 100 mL an hour, Lipitor 10 mg daily, received a dose of ceftriaxone in the ER. Urine culture pending. We will continue ceftriaxone 1 g daily. ID consultation with Dr. Zamora requested for UTI. Wound care consult requested. Judy Harper MD MTDMaryana
[2018-03-02 09:25] LABS: TROPONIN I 3.39 ng/mL
[2018-03-02] MEDS ORDERED: cefTRIAXone 1 gm 1 GM/100 ML BAG IVPB SCH (10:00)
[2018-03-02] MEDS: Cefepime 1gm in NS 100ml 1 GM/100 ML BAG IVPB SCH (10:30)
[2018-03-02] MEDS: Sodium Chloride 0.9% 1,000 ML IV SCH ×2 (10:32→18:33)
[2018-03-02] MEDS: Heparin25000 units/250ml 1/2NS 25,000 UNITS/250 ML BAG IV PRN ×2 (10:47→18:37)
[2018-03-02 10:48] LABS: HDL CHOLESTEROL 25 mg/dL (29-60)
[2018-03-02 10:59] LABS: LDL CHOLESTEROL 42 mg/dL (0-129)
--- NOTE | 2018-03-02 12:12 | CP.PCM.CON ---
History of Present Illness - History of Present Illness History of Present Illness: 82 year old male with PMH of CVA, HTN, DM, dementia, chronic renal failure, macular degeneration, history of urinary retention, S/P Strep mitis bacteremia was broug[place] in [place] [facility] [place] suffered a fall while in the residential. There was no note of fever, no convulsions, no loss of consciousness, no diarrhea. He denies headache or dizziness, no chest pain or palpitations, no cough or colds, no abdominal pain, no dysuria. In the ED, urinalysis is showing pyuria and patient is complaining of urinary frequency. Infectious Diseases consult is requested to further evaluate and manage. Review of Systems - Review of Systems All systems: reviewed and no additional remarkable complaints except (as per HPI ) Past Patient History - Infectious Disease Hx of Infectious Diseases: None - Tetanus Immunizations Tetanus Immunization: Unknown - Past Social History Smoking Status: unknown - CARDIAC Hx Hypertension: Yes - PULMONARY Hx Respiratory Disorders: No - NEUROLOGICAL HX Cerebrovascular Accident: Yes Hx Dementia: Yes - HEENT Hx Difficulty Chewing: Yes - RENAL Hx Chronic Kidney Disease: No - ENDOCRINE/METABOLIC Hx Diabetes Mellitus Type 2: Yes - HEMATOLOGICAL/ONCOLOGICAL Hx Cancer: No - INTEGUMENTARY Hx Dermatological Problems: Yes Hx Basil Cell: No Other/Comment: left 5th toe purple discolored, redness to buttocks/sacrum no openings, redness r hip, 4cm x 3cm necrotic right heel surrounded by red skin dry skin to r ft, thick toenails both feet - MUSCULOSKELETAL/RHEUMATOLOGICAL Hx Falls: Yes - GASTROINTESTINAL HX Swallowing Problems: Yes - GENITOURINARY/GYNECOLOGICAL Hx Urinary Tract Infection: Yes - PSYCHIATRIC Hx Depression: Yes - SURGICAL HISTORY Hx Surgeries: No - ANESTHESIA Hx Anesthesia: Yes Hx Anesthesia Reactions: Yes (unknown; 2017) Hx Malignant Hyperthermia: No Meds Allergies/Adverse Reactions: Allergies Allergy/AdvReac Type Severity Reaction Status Date / Time No Known Allergies Allergy Verified 03/01/18 17:51 - Medications Medications: Current Medications Acetaminophen (Tylenol 325mg Tab) 325 mg PO Q6 [facility] Last Admin: 03/02/18 06:11 Dose: 325 mg Atorvastatin Calcium (Lipitor) 10 mg PO HS [facility] Famotidine (Pepcid) 10 mg PO DAILY [facility] Heparin Sodium/Sodium Chloride (Heparin 80258 Units/250ml 1/2 Normal Saline) 25 ,000 units in 250 mls @ 6.085 mls/hr IV .Q24H OMAR; 12 UNITS/KG/HR PRN Reason: Protocol Last Admin: 03/01/18 21:59 Dose: 6.085 mls/hr Sodium Chloride (Sodium Chloride 0.9%) 1,000 mls @ 100 mls/hr IV .Q10H [facility] Last Admin: 03/01/18 21:57 Dose: 100 mls/hr Ceftriaxone Sodium (Rocephin 1 Gram Ivpb) 1 gm in 100 mls @ 100 mls/hr IVPB DAILY [facility] PRN Reason: Protocol Memantine (Namenda) 10 mg PO DAILY [facility] Mirtazapine (Remeron) 15 mg PO DAILY [facility] Physical Exam - Constitutional Appears: Non-toxic, Chronically Ill - Head Exam Head Exam: NORMAL INSPECTION - ENT Exam ENT Exam: Mucous Membranes Moist - Neck Exam Neck exam: Negative for: Lymphadenopathy, Meningismus - Respiratory Exam Respiratory Exam: Decreased Breath Sounds - Cardiovascular Exam Cardiovascular Exam: +S1, +S2 - GI/Abdominal Exam GI & Abdominal Exam: Soft. absent: Tenderness - Back Exam Back exam: absent: CVA tenderness (L), CVA tenderness (R) Results - Vital Signs Recent Vital Signs: Last Vital Signs Temp 97.9 F 03/02/18 06:00 Pulse 72 03/02/18 06:00 Resp 19 03/02/18 06:00 BP 120/78 03/02/18 06:00 Pulse Ox 96 03/02/18 06:00 - Labs Result Diagrams: 03/02/18 08:30 03/02/18 08:30 Labs: Laboratory Results - last 24 hr 03/02/18 03/02/18 08:00 08:30 WBC 7.6 RBC 3.20 L Hgb 9.8 L Hct 29.9 L MCV 93.4 MCH 30.6 MCHC 32.8 RDW 13.9 Plt Count 291 MPV 9.9 Gran % 53.4 Lymph % (Auto) 29.0 Jennings % (Auto) 7.9 H Eos % (Auto) 7.7 H Baso % (Auto) 2.0 Gran # 4.07 Lymph # (Auto) 2.2 Jennings # (Auto) 0.6 Eos # (Auto) 0.6 Baso # (Auto) 0.15 APTT 108.2 H* Assessment & Plan - Assessment and Plan (Free Text) Plan: Assessment R/O UTI in this patient with history of UTI's syncope, etiology to be determined history of necrotic pressure ulcer infection with probable osteomyelitis with Pseudomonas history of acute mesenteric ischemia associated with the superior and inferior mesenteric arteries now S/P angioplasty S/P Strep mitis bacteremia with 2D echo negative for vegetations CVA chronic renal failure HTN macular degeneration DM history of urinary retention Plan started Cefepime pending urine cx and PSA levels will monitor clinically
--- NOTE | 2018-03-02 13:53 | PQF RENAL ---
This form is a permanent part of the medical record Dr. Harper, Your H&P includes the diagnosis of CKD. Patient was admitted with BUN 48, creatinine 2.1. Please provide specificity as to stage of CKD. Clarification of your documentation is requested to better reflect the severity of illness and intensity of treatment of your patient. Indicators present [] Oliguria/anuria [] Edema/weight gain [] Hyponatremia [] Confusion/mental status changes [] Increased Blood Urea Nitrogen/Creatinine [] Increased Potassium/Decreased potassium [] Anemia (male <13.5, female <12.0) [] Proteinuria [] Metabolic Acidosis OR Alkalosis [] Hypotension/shock [] Decreased GFR [] Other: [] Location in the medical record that reflects the above clinical findings: PHYSICIAN'S RESPONSE Based on your medical judgment of the clinical indicators outlined above, are you treating this patient for a known or suspected: [] Acute Renal Failure [] Acute Kidney Injury [] Azotemia/prerenal azotemia [x] Chronic kidney disease Stage I [] Stage II [] Stage III [x] Stage IV [] [] Other condition/diagnosis:[] [] If Unable to Determine, please check the box, sign and date. Present On Admission (POA) Indicator: [x] Present at the time of admission [] Not present at the time of admission [] Clinically Undetermined In responding to this query, please exercise your independent professional judgment. The fact that a question is asked does not imply that any particular answer is desired or expected. Thank you for your clarification on this documentation. If you have any questions please call:[ ] * Thank you, [ ]Homero Poole [facility] #[id number] [place] Chronic Kidney Disease Stages *[employer]* Stage I GFR >90 Stage II GFR 60-89 Stage III GFR 30-59 Stage IV GFR 15-29 Stage V~~~~~~~~~~ GFR <15~~~~~~~~~~~~~ MTDD
--- NOTE | 2018-03-02 15:51 | PN ---
DATE: 03/02/2018 SUBJECTIVE: He is comfortable in bed in no acute distress. Denies any chest pain. Currently on heparin drip for elevated troponin. No shortness of breath. REVIEW OF SYSTEMS: As per HPI. Rest of 12-point review of systems reviewed and negative. PHYSICAL EXAMINATION: GENERAL: Comfortable in bed in no acute distress. VITAL SIGNS: Temperature 97.9, heart rate is 70 per minute, blood pressure 120/78, respiratory rate 18 per minute, oxygen saturation 96% room air. HEENT: Pallor positive. NECK: No lymphadenopathy. CHEST: Air entry present, equal bilateral. No added sounds. CARDIOVASCULAR: S1, S2 normal. No murmur. No gallop. ABDOMEN: Soft, nontender. No hepatosplenomegaly. EXTREMITIES: No edema. CENTRAL NERVOUS SYSTEM: No focal sensory motor deficit. Dementia present. LABORATORY DATA: From 03/01/2018, white count 9.3, hemoglobin 10.3, platelet count 301. Creatinine 2.1, troponin 3.87. MEDICATIONS: Heparin drip, Tylenol, Lipitor 10 mg daily, Pepcid 10 mg daily, Namenda 10 mg daily, IV fluids 80mL an hour, Remeron 15 mg daily. ASSESSMENT: 1. Non-ST elevation myocardial infarction. 2. Dementia. 3. Chronic anemia. 4. Sacral decubitus ulcer. 5. Urinary tract infection. PLAN: Continue ceftriaxone 1 g daily. ID consultation with Dr. Zamora requested. Continue heparin drip. Cardiology consultation with Dr. Stein requested. We will continue Lipitor 10 daily, Namenda 10 daily. Labs showed mild anemia. Workup for anemia, iron studies, B12, folate level. Troponin ordered stat to be done today. Urine culture pending. Judy aHrper MD MTDMaryana
--- NOTE | 2018-03-02 21:06 | CON ---
DATE: 03/02/2018 CARDIOLOGY CONSULTATION HISTORY OF PRESENT ILLNESS: The patient is an 82-year-old male with chronic dementia who presented to the emergency room from a detention after a fall. He was found to be confused with marked renal insufficiency with BUN and creatinine of 43 and 2.4. His troponin was noted to be 3.87. The hemoglobin is 9.8. PAST MEDICAL HISTORY: Includes severe dementia and hypercholesterolemia. No previous cardiac history is noted. SOCIAL HISTORY: Unavailable. REVIEW OF SYSTEMS: Unavailable. PHYSICAL EXAMINATION: VITAL SIGNS: Blood pressure is 120/78, heart rate is in the 70s. NECK: Negative JVD. LUNGS: Without rales. HEART: With S1, S2. EXTREMITIES: Without edema. NEUROLOGIC: The patient is confused and mildly contracted. He is chest pain free. LABORATORY DATA: EKG shows normal sinus rhythm with diffuse ST-T changes. Hemoglobin is 9.8. Chemistries, troponins of 3.39, BUN and creatinine is 41 and 1.9. IMPRESSION: 1. Non-ST elevation myocardial infarction. 2. Coronary artery disease. 3. Renal insufficiency. 4. Dementia. PLAN: Given these findings, the patient has been treated medically given his multiple comorbidities with no plans for catheterization especially given his high risk of renal toxicity. He is on IV heparin, aspirin and we will add beta-blockers. Kevin Stein MD
--- NOTE | 2018-03-02 21:26 | CARD ---
APPROVED REPORT EKG Measurement Heart [id number] <Conclusion> Normal sinus rhythm Left axis deviation T wave abnormality, consider anterolateral ischemia Prolonged QT Abnormal ECG
--- NOTE | 2018-03-02 21:41 | CARD ---
APPROVED REPORT EKG Measurement Heart [id number] <Conclusion> Normal sinus rhythm T wave abnormality, consider anterolateral ischemia Prolonged QT Abnormal ECG
--- NOTE | 2018-03-03 08:36 | PN ---
DATE: 03/03/2018 FOLLOWUP NOTE SUBJECTIVE: He is comfortable in bed, in no acute distress. Denies any chest pain. He has underlying dementia, currently on heparin drip for non-STEMI with elevated troponin. Cardiology consulted. Consultation of Dr. Stein appreciated. His note reviewed. Recommended conservative management. ID consultation, Dr. Mcghee, requested. Currently, on cefepime for multiple decubitus ulcer and positive UA. Urine culture pending. UA was positive. REVIEW OF SYSTEMS: As per HPI. Rest of 12-point review of systems reviewed negative. PHYSICAL EXAMINATION: VITAL SIGNS: Temperature 98.3, heart rate is 62 per minute, blood pressure 120/70, oxygen saturation 98% on room air. HEENT: Pallor positive. NECK: No lymphadenopathy. Chest: Air entry present and equal bilateral. No added sound. CARDIOVASCULAR: S1 and S2 normal. No murmur. No gallop. ABDOMEN: Soft, nontender. No hepatosplenomegaly. EXTREMITY: No edema. SAMPLER TESTER: Noncommunicative, arousable, not oriented. Not alert. Underlying dementia. SPINE: Nontender. SKIN: No petechiae. No rash. LABORATORY DATA: Pending from today. Hemoglobin 7.6, hematocrit 98, platelet count 291, labs from 03/02/2018. Creatinine of 1.9. Troponin 3.3. MEDICATIONS: Tylenol 650 every 6 hours p.r.n., aspirin 81 mg daily, Lipitor 10 mg daily, cefepime, Pepcid 10 mg daily heparin drip, Namenda 10 mg daily, Lopressor 25 mg p.o. b.i.d., Remeron 15 mg daily, IV fluid was 100 mL an hour. ASSESSMENT 1. [id number] myocardial infarction. 2. Chronic anemia. 3. Chronic kidney disease. 3. Advanced dementia. 4. Possible urinary tract infection. 5. Multiple sacral decubitus ulcer. PLAN: We will continue cefepime. ID consultation appreciated. We will follow the recommendation. Wound care for sacral decubitus. Labs ordered for today to be done stat, CBC, CMP, troponins. He has chronic anemia, hemoglobin 9.8, stable. Might be related to chronic kidney disease. Iron studies are normal. Iron is 54, saturation 25. LFTs within normal limits. B12, folate levels are normal. Chronic kidney disease stage 3 stable. Currently, he is on IV fluid at 100 mL an hour. Poor p.o. intake. Swallow eval requested. Judy Harper MD
[2018-03-03 09:14] LABS: INR 1.19 (0.93-1.08); PROTHROMBIN TIME 13.7 SECONDS (9.4-12.5)
[2018-03-03] MEDS: Cefepime 1gm in NS 100ml 1 GM/100 ML BAG IVPB SCH (10:38)
--- NOTE | 2018-03-03 13:11 | PN ---
DATE: 03/03/2018 SUBJECTIVE: Patient is in bed, in no acute distress, nontoxic. PHYSICAL EXAMINATION: VITAL SIGNS: On exam, temperature is 98, blood pressure is 115/60, respiratory rate of 20. HEENT: Unremarkable. NECK: Supple. LUNGS: Have decreased breath sounds. HEART: Normal S1, S2. ABDOMEN: Soft, nontender. LABORATORY EXAMINATION: Reveals a white count is 7.6, hemoglobin of 9, platelets of 291. Coagulation is noted. Chemistries are noted. Creatinine is 1.9. Microbiology reveals the blood cultures are negative. Review of orders reveals the patient is on cefepime and the urine culture is pending. ASSESSMENT AND PLAN: This is an 82-year-old male seen earlier today in room 267, bed 1, with urinary tract infection in a patient with a history of urinary tract infections and syncope, history of necrotic pressure ulcers with probable osteomyelitis and Pseudomonas, history of Streptococcus mitis bacteremia with negative echo for vegetations in a patient with renal disease, cerebrovascular accident, hypertension, diabetes, day #2 of cefepime. Awaiting for the urine culture and patient did have a fever of 100.5 on admission, which is improved and this patient is waiting for urine culture, on cefepime. Patient's PSA is less than 0.01. Moe Zamora MD
--- NOTE | 2018-03-03 15:14 | PN ---
DATE: 03/03/2018 CARDIOLOGY FOLLOWUP SUBJECTIVE: The patient is without symptoms. PHYSICAL EXAMINATION: VITAL SIGNS: Blood pressure is 127/70, heart rate is in the 70s. NECK: Negative JVD. LUNGS: Without rales. HEART: Reveals S1, S2. EXTREMITIES: Without edema. LABORATORY DATA: The troponin is on a descending trend. IMPRESSION: 1. [id number] myocardial infarction. 2. Coronary artery disease. 3. Renal insufficiency. 4. Dementia. PLAN: Given these findings, the patient's non-STEMI is being treated medically. We will discontinue the heparin today. We will continue on the aspirin, beta-blockers and statin therapy. The patient is scheduled for transfer back to the snf in the morning. I have discussed this with the family in detail. Kevin Stein MD
[2018-03-03] MEDS: Sodium Chloride 0.9% 1,000 ML IV SCH (17:29)
[2018-03-04] MEDS: Sodium Chloride 0.9% 1,000 ML IV SCH ×2 (00:56→09:54)
[2018-03-04 06:19] VITALS: O2SAT 97
[2018-03-04 08:11] LABS: INR 1.2 (0.93-1.08); PROTHROMBIN TIME 13.8 SECONDS (9.4-12.5)
[2018-03-04] MEDS: Cefepime 1gm in NS 100ml 1 GM/100 ML BAG IVPB SCH (09:54)
[2018-03-04 12:41] VITALS: BP 121/80; PULSE 65; RESP 21; TEMP 98.1
--- NOTE | 2018-03-04 14:37 | PN ---
DATE: 03/04/2018 CARDIOLOGY FOLLOWUP SUBJECTIVE: The patient is asymptomatic, lethargic in bed. PHYSICAL EXAMINATION: VITAL SIGNS: Blood pressure is 117/80, the heart rates in the 60s. NECK: Negative JVD. LUNGS: Without rales. HEART: With S1, S2. EXTREMITIES: Without edema. LABORATORY DATA: Troponin continues to be descending. IMPRESSION: 1. Status post non-ST elevation myocardial infarction. 2. Coronary artery disease. 3. Renal insufficiency. 4. Dementia. PLAN: Given these findings, the patient's heparin has been turned off, he is currently on medical therapy for his non-STEMI. The patient is scheduled for discharge today. Kevin Stein MD
--- NOTE | 2018-03-04 16:22 | PN ---
DATE: 03/04/2018 SUBJECTIVE: The patient is in room 267, bed 1. No fevers and no chills. PHYSICAL EXAMINATION: VITAL SIGNS: Temperature is 98, blood pressure is 106/60, respiratory rate of 18, heart rate is noted. HEENT: Examination of HEENT is unremarkable. NECK: Supple. LUNGS: Have decreased breath sounds. HEART: Normal S1, S2. ABDOMEN: Soft, nontender. LABORATORY DATA: Laboratory examination reveals a white count of 7.6, hemoglobin of 9, platelets of 291. Chemistries reveals a BUN of 41, creatinine of 1.9. Urinalysis is noted and microbiology reveals the blood cultures are negative. Urine cultures are negative. Review of orders reveals the patient to be on cefepime. Dr. Kevin Stein's note from yesterday is reviewed. ASSESSMENT AND PLAN: An 82-year-old male, was seen earlier today with urinary tract infection, history of urinary tract infections, syncope, history of necrotic pressure ulcers and probable osteomyelitis and Pseudomonas, history of Streptococcus mitis bacteremia with a negative echocardiogram for vegetation in a patient with renal disease, cerebrovascular accident, hypertension, diabetes, day #3 of cefepime. On admission, the patient did have a fever of 100.5, which is improved. Thus far, negative cultures. He may be able to switch to p.o., entire therapy upon discharge. Moe Zamora MD
--- NOTE | 2018-03-07 16:45 | PQF DECUBI ---
03/06/18 Dr. Harper, Sacral decubitus is documented on progress notes. Please indicate stage. Thank you. Clarification of your documentation is requested to better reflect the severity of illness and intensity of treatment of your patient. Indicators present [X] Documented diagnosis of decubitus/pressure ulcer Location in the medical record that reflects the above clinical findings: [] Treatment Provided: PHYSICIAN'S RESPONSE Based on your medical judgment can you define the stage of the decubitus/ pressure ulcer as: Present On Admission [] Stage 1 Pressure Ulcer: Specify Location: [] Yes [] No Intact Skin with non-blanching erhythema (reddened area on skin) Painful or Itchy When compared to adjacent tissue may be firmer/softer or warmer/cooler [] Stage 2 Pressure Ulcer: Specify Location: []Yes []No Partial thickness loss of dermis Abrasion, blister or shallow open crater Red/pink wound bed without slough [] Stage 3 Pressure Ulcer: Specify Location: []Yes [] No Full thickness skin loss (bone, tendon, muscle are not exposed) Damage or necrosis into subcutaneous soft tissues Slough present but does not obscure the depth of tissue loss Undermining and/or tunneling [] Stage 4 Pressure Ulcer: Specify Location: []Yes [] No Full thickness skin loss with exposed bone, tendon or muscle Slough Undermining and/or tunneling Extend into muscle and/or supporting structure (e.g. fascia, tendon, or joint capsule) [X] Unstageable: Specify Location: [sacral ] []Yes [] No In responding to this query, please exercise your independent professional judgment. The fact that a question is asked does not imply that any particular answer is desired or expected. Thank you for your clarification on this documentation. If you have any questions please call:[ ] * Thank you, [ ] manager style KATERIN
== END 2018-03-04 15:23 | DRG 281 ==
LOC: ED 17:18 → ERH 22:20 → 2RNO 23:39
PROVIDERS: ADMIT Internal Medicine Medical Oncology; ATTEND Internal Medicine Medical Oncology
DX: I21.4 Non-ST elevation (NSTEMI) myocardial infarction (principal); N12 Tubulo-interstitial nephritis, not specified as acute or chronic; M86.9 Osteomyelitis, unspecified; N18.4 Chronic kidney disease, stage 4 (severe); D64.9 Anemia, unspecified; E11.22 Type 2 diabetes mellitus with diabetic chronic kidney disease; E78.00 Pure hypercholesterolemia, unspecified; E78.5 Hyperlipidemia, unspecified; F03.90 Unspecified dementia, unspecified severity, without behavioral disturbance, psychotic disturbance, mood disturbance, and anxiety; H35.30 Unspecified macular degeneration; I12.9 Hypertensive chronic kidney disease with stage 1 through stage 4 chronic kidney disease, or unspecified chronic kidney disease; I25.10 Atherosclerotic heart disease of native coronary artery without angina pectoris; W06.XXXA Fall from bed, initial encounter; Z79.899 Other long term (current) drug therapy; Z86.73 Personal history of transient ischemic attack (TIA), and cerebral infarction without residual deficits; Z87.440 Personal history of urinary (tract) infections; Z87.891 Personal history of nicotine dependence; Z91.81 History of falling; E11.69 Type 2 diabetes mellitus with other specified complication; L89.150 Pressure ulcer of sacral region, unstageable

== ENCOUNTER 2018-07-15 10:07 | Inpatient (IN) | payer MEDICARE, OTHER ==
[2018-07-15] MEDS ORDERED: Piperacillin/Tazobact 3.375 gm 100 ML IVPB STA (10:11)
[2018-07-15] MEDS ORDERED: Vancomycin 1gm in NS 250ml 1 GM/250 ML BAG IVPB STA (10:11)
[2018-07-15] MEDS ORDERED: Albuterol-Ipratrop 3 mg / 0.5 (3 ml) UD ONE (10:17)
[2018-07-15] MEDS ORDERED: Albuterol-Ipratrop 3 mg / 0.5 (3 ml) UD IH STA (10:19)
[2018-07-15] MEDS ORDERED: Sodium Chloride 0.9% 1,000 ML IV STA (10:19)
[2018-07-15] MEDS: Albuterol-Ipratrop 3 mg / 0.5 (3 ml) UD IH STA ×2 (10:19→11:21)
[2018-07-15 10:29] LABS: VENOUS BLOOD GAS BASE EXCESS 0.6 mmol/L (0.0-2.0); VENOUS BLOOD GAS PO2 34 mm/Hg (30-55); VENOUS BLOOD PH 7.33 (7.32-7.43)
--- NOTE | 2018-07-15 10:35 | ED PDOC ---
Arrival/HPI - General Chief Complaint: Shortness Of Breath Time Seen by Provider: 07/15/18 10:09 Historian: EMS - History of Present Illness Narrative History of Present Illness (Text): 07/15/18 10:25 A 82 year old male, whose past medical history includes hypertension, hyperlipidemia and frequent UTI's, brought in by EMS from intermediate to the emergency department for shortness of breath. Per EMS, patient was febrile and hypoxic prior to arrival. It is mentioned patient has advanced dementia. Patient has been here for multiple admissions of sepsis. Upon arrival patient is AMS. Limited HPI and ROS due to patient's advanced dementia and AMS. Patient is DNI. Past Medical History - Provider Review Nursing Documentation Reviewed: Yes - Infectious Disease Hx of Infectious Diseases: None - Tetanus Immunization Tetanus Immunization: Unknown - Cardiac Hx [place]: Yes Hx Hypertension: Yes - Pulmonary Hx Respiratory Disorders: No - Neurological HX Cerebrovascular Accident: Yes Hx Dementia: Yes - HEENT Hx Difficulty Chewing: Yes - Renal Hx Renal Disorder: No - Endocrine/Metabolic Hx Diabetes Mellitus Type 2: Yes - Hematological/Oncological Hx Cancer: No - Integumentary Hx Dermatological Disorder: Yes Hx Basal Cell Carcinoma: No Other/Comment: left 5th toe purple discolored, redness to buttocks/sacrum no openings, redness r hip, 4cm x 3cm necrotic right heel surrounded by red skin dry skin to r ft, thick toenails both feet - Musculoskeletal/Rheumatological Hx Falls: Yes - Gastrointestinal HX Swallowing Problems: Yes - Genitourinary/Gynecological Hx Urinary Tract Infection: Yes - Psychiatric Hx Depression: Yes Hx Substance Use: No - Surgical History Hx Mastectomy: No - Anesthesia Hx Anesthesia: Yes Hx Anesthesia Reactions: Yes (unknown; 2016) Hx Malignant Hyperthermia: No - Suicidal Assessment Feels Threatened In Home Enviroment: No Family/Social History - Physician Review Nursing Documentation Reviewed: Yes Family/Social History: No Known Family HX Smoking Status: Never Smoked Hx Alcohol Use: No Hx Substance Use: No Hx Substance Use Treatment: No Allergies/Home Meds Allergies/Adverse Reactions: Allergies No Known Allergies Allergy (Verified 07/15/18 10:15) Per EMS and which is at home. Pt is confused due to dementia Hx Home Medications: Home Meds Medication Instructions Recorded Confirmed Memantine [Namenda] 10 mg PO DAILY 01/30/18 07/15/18 ALPRAZolam [Xanax] 0.25 mg PO Q8 07/15/18 07/15/18 Aspirin [Aspirin Chewable] 81 mg PO DAILY 07/15/18 07/15/18 Metoprolol Tartrate [Lopressor] 25 mg PO BID 07/15/18 07/15/18 Mirtazapine [Remeron] 15 mg PO HS 07/15/18 07/15/18 Review of Systems - Review of Systems Systems not reviewed;Unavailable: Dementia Physical Exam Vital Signs Reviewed: Yes Vital Signs Temp Pulse Resp BP Pulse Ox 07/15/18 10:08 102 F H 112 H 26 H 95/50 L 100 Temperature: Febrile Blood Pressure: Hypotensive Pulse: Regular Respiratory Rate: Normal Appearance: Positive for: Ill-Appearing, Cachectic Mental Status: Positive for: other (advanced dementia, ams) - Systems Exam Head: Present: Atraumatic Mouth: Present: Moist Mucous Membranes Respiratory/Chest: Present: Decreased Breath Sounds (b/l), Other (contractions) Cardiovascular: Present: Regular Rate and Rhythm, Normal S1, S2. No: Murmurs Abdomen: No: Tenderness, Distention, Peritoneal Signs Upper Extremity: Present: Normal Inspection. No: Cyanosis, Edema Lower Extremity: Present: Normal Inspection. No: Edema Skin: Present: Warm, Dry, Normal Color. No: Rashes Psychiatric: Present: Other (advanced dementia, ams). No: Alert, Oriented x 3, Normal Insight, Normal Concentration Medical Decision Making ED Course and Treatment: 07/15/18 10:30 Impression: 82 year old male with shortness of breath. Physical exam shows patient appears cachectic, ill-appearing, decreased breath sounds b/l. Plan: -- EKG -- Chest X-ray -- Duoneb -- Venous Blood Gas -- IV Fluids -- Vancomycin -- Piperacillin -- Urinalysis -- Reassess and disposition Prior Visits: Notes and results from previous visits were reviewed. Patient was last seen in the emergency department on 03/01/2018 for fall. Patient was admitted for pyelonephritis, non-STEMI. Progress Notes: EKG: Ordered, reviewed, and independently interpreted the EKG. Rate : 111 BPM Rhythm : Sinus tachycardia Interpretation : No ST-segment elevations or depressions, no T-wave inversions, normal intervals. Comparison : No previous EKG for comparison. 07/15/2018 11:36 Chest X-ray IMPRESSION: No active pulmonary disease. Dictator: Ira Guillen MD 07/17/18 11:20 upon arrival pt placed on bipap as pt dni. urine positive. bp stable for tele. pt with advance dementia.l more awake arousable in er. accepted by dr gaines. - Lab Interpretations I have reviewed the lab results: Yes - RAD Interpretation Radiology Orders: 07/15/18 10:10 CHEST PORTABLE [RAD] Stat - Medication Orders Current Medication Orders: Vancomycin HCl (Vancomycin 1gm) 1 gm in 250 mls @ 167 mls/hr IVPB STAT STA; Protocol Stop: 07/15/18 11:40 Piperacillin Sod/Tazobactam Sod (Zosyn 3.375 In Ns 100ml) 100 mls @ 200 mls/hr IVPB STAT STA; Protocol Stop: 07/15/18 10:40 Sodium Chloride (Sodium Chloride 0.9%) 1,000 mls @ 999 mls/hr IV .Q1H1M STA Stop: 07/15/18 11:19 Discontinued Medications Albuterol/Ipratropium (Duoneb 3 Mg/0.5 Mg (3 Ml) Ud) 3 ml IH STAT STA Stop: 07/15/18 10:20 Albuterol/Ipratropium (Duoneb 3 Mg/0.5 Mg (3 Ml) Ud) 3 ml IH STAT STA Stop: 07/15/18 10:20 - Scribe Statement The provider has reviewed the documentation as recorded by the Justo Perez Provider Scribe Attestation: All medical record entries made by the Dorianibmary were at my direction and personally dictated by me. I have reviewed the chart and agree that the record accurately reflects my personal performance of the history, physical exam, medical decision making, and the department course for this patient. I have also personally directed, reviewed, and agree with the discharge instructions and disposition. Disposition/Present on Arrival - Present on Arrival Any Indicators Present on Arrival: No History of DVT/PE: No History of Uncontrolled Diabetes: No Urinary Catheter: No History of Decub. Ulcer: No History Surgical Site Infection Following: None - Disposition Have Diagnosis and Disposition been Completed?: Yes Diagnosis: UTI (urinary tract infection), Sepsis, CHF (congestive heart failure) Disposition: HOSPITALIZED Disposition Time: 09:00 Condition: GUARDED
[2018-07-15 10:36] LABS: BASO # 0.15 K/mm3 (0.0-2.0); BASO % 0.9 % (0.0-3.0); EOS # 0.3 (0.0-0.7); EOS % 1.9 % (1.5-5.0); GRAN # 11.2 (1.4-6.5); GRAN % 70.4 % (50.0-68.0); HEMOGLOBIN 11.3 g/dL (14.0-18.0); LYMPH # 3.4 (1.2-3.4); LYMPH % 21.3 % (22.0-35.0); MEAN CELL VOLUME 98.1 fl (80.0-105.0); MEAN CORPUSCULAR HEMOGLOBIN 30.7 pg (25.0-35.0); MEAN CORPUSCULAR HGB CONC 31.3 g/dl (31.0-37.0); MEAN PLATELET VOLUME 9.9 fl (7.0-11.0); MONO # 0.9 (0.1-0.6); MONO % 5.5 % (1.0-6.0); RBC 3.68 10^6/uL (3.5-6.1); WHITE BLOOD COUNT 15.9 10^3/uL (4.5-11.0)
[2018-07-15 10:45] LABS: INR 1.2; PARTIAL THROMBOPLASTIN TIME 32.1 Seconds (25.1-36.5); PROTHROMBIN TIME 13.8 SECONDS (9.4-12.5)
[2018-07-15 10:55] LABS: B-TYPE NATRIURETIC PEPTIDE 16600 pg/mL (0-450); TROPONIN I < 0.01 ng/mL
--- NOTE | 2018-07-15 11:40 | RAD ---
Date of service: 07/15/2018 HISTORY: sob COMPARISON: 03/01/2018. FINDINGS: LUNGS: The lungs are well inflated and clear. PLEURA: No pleural effusions or pneumothorax. CARDIOVASCULAR: The heart is normal in size. Aortic atherosclerotic calcifications are present. OSSEOUS STRUCTURES: Within normal limits for the patient's age. VISUALIZED UPPER ABDOMEN: Normal. OTHER FINDINGS: None. IMPRESSION: No active pulmonary disease.
[2018-07-15 11:47] LABS: URINE BILIRUBIN NEGATIVE (NEGATIVE); URINE BLOOD MODERATE (NEGATIVE); URINE GLUCOSE (UA) NEGATIVE (NEGATIVE); URINE LEUKOCYTE ESTERASE LARGE Leu/uL (NEGATIVE); URINE PROTEIN 100 mg/dL (<30 mg/dL); URINE UROBILINOGEN 0.2 E.U./dL (<1 E.U./dL)
[2018-07-15 11:48] LABS: URINE APPEARANCE CLOUDY (CLEAR); URINE COLOR YELLOW (YELLOW)
[2018-07-15 11:54] LABS: URINE WBC TNTC /hpf (0-6)
[2018-07-15 11:55] LABS: URINE BACTERIA MANY (NEG); URINE EPITHELIAL CELLS 0 - 2 /hpf (0-5); URINE RBC 0 - 2 /hpf (0-2)
[2018-07-15 12:02] LABS: ALB/GLOB RATIO 0.8 (1.1-1.8); ALT/SGPT 23 U/L (7-56); AST/SGOT 24 U/L (17-59); BLOOD UREA NITROGEN 58 mg/dL (7-21); GFR NON-AFRICAN AMERICAN 17
[2018-07-15] MEDS ORDERED: Sod Polystyrene Sulf 15 gm/60 ml Susp PR STA (12:13)
[2018-07-15 13:37] VITALS: BMI 28.4
[2018-07-15 13:41] LABS: VENOUS BLOOD GAS BASE EXCESS -6.1 mmol/L (0.0-2.0); VENOUS BLOOD GAS PO2 78 mm/Hg (30-55); VENOUS BLOOD PH 7.21 (7.32-7.43)
[2018-07-15] MEDS: MEROPENEM 500 MG in NS 500 MG/50 ML BAG IVPB SCH ×2 (14:31→21:16)
--- NOTE | 2018-07-15 15:39 | PCM.SEPTIC ---
Addendum entered and electronically signed by Holden Cannon DO 07/15/18 15:49: assign note to Dr Newman Original Note: Sepsis Progress Note - Reassessment Type Date of Evaluation: 07/15/18 Time of Evaluation: 15:39 Reassessment Type: Non-invasive reassessment - Non Invasive Reassessment Were the most recent vital sign reviewed: Yes Vital Sign (Latest): Temp Pulse Resp BP Pulse Ox 98.7 F 93 H 20 112/69 97 07/15/18 14:01 07/15/18 14:01 07/15/18 14:01 07/15/18 14:01 07/15/18 14:01 Cardiovascular: Yes: Regular Rate, Rhythm. No: Irregularly Irregular Respiratory: Yes: Normal Breath Sounds. No: Accessory Muscle Use Capillary Refill: Normal (Less than 2 sec) Pulses: Normal Radial, Normal Dorsalis Pedis, Normal Posterior Tibialis Skin: Warm, Dry - Invasive Reassessment (complete 2 of 4) Was a Central Venous Pressure Measurement obtained within 6 Hours after the presentation of septic shock: No Was a central venous oxygen measurement obtained within 6 hours after the presentation of septic shock: No Was a bedside cardiovascular ultrasound performed within 6 hours after the presentation of septic shock: No Fluid Challenge performed: Yes
[2018-07-16 06:52] LABS: MEAN CELL VOLUME 98.7 fl (80.0-105.0); MEAN CORPUSCULAR HGB CONC 30.4 g/dl (31.0-37.0); MEAN PLATELET VOLUME 9.9 fl (7.0-11.0); RED CELL DISTRIBUTION WIDTH 14.1 % (11.5-14.5)
--- NOTE | 2018-07-16 07:33 | CP.PCM.HP ---
<Bibiana Wall - Last Filed: 07/16/18 11:40> History of Present Illness - History of Present Illness History of Present Illness: Bibiana Wall DO, PGY-2: HPI for Dr. Newman 82 year old male with a past medical history of Alzheimer's dementia, CAD, CVA, CKD III/IV, and UTIs who [place] [facility] [place] nursing for shortness of breath and altered mental status. In the ED he was found to be febrile with a leukocytosis and elevated lactic acid. Chest X -ray showed no pneumonia and UA was suggestive of UTI. At the time of my examination the patient is off BIPAP, speaking in full sentences. He denies any pain, visual changes, shortness of breath, or chest pain. He is not hallucinating or showing any signs of delirium. 12 point ROS was negative. PMH: Alzheimer disease, CAD- as patient had NSTEMI in February of this year, CVA, CKD III, macular degeneration and recurrent UTI Past surgical history: appendectomy, SMA angioplasty Home meds: As per ROSETTE Allergies: NKDA Social history: No EtOH, tobacco or drug use. Bed-bound Advanced directive via POLST: DNI Present on Admission - Present on Admission Any Indicators Present on Admission: No Review of Systems - Review of Systems Systems not reviewed;Unavailable: Dementia Review of Systems: ROS is limited in utility as patient has advanced dementia Past Patient History - Infectious Disease Hx of Infectious Diseases: None - Tetanus Immunizations Tetanus Immunization: Unknown - Past Social History Smoking Status: Never Smoked - CARDIAC Hx Hypertension: Yes - PULMONARY Hx Respiratory Disorders: No - NEUROLOGICAL HX Cerebrovascular Accident: Yes Hx Dementia: Yes - HEENT Hx Difficulty Chewing: Yes - RENAL Hx Chronic Kidney Disease: No - ENDOCRINE/METABOLIC Hx Diabetes Mellitus Type 2: Yes - HEMATOLOGICAL/ONCOLOGICAL Hx Cancer: No - INTEGUMENTARY Hx Dermatological Problems: Yes Hx Basil Cell: No Other/Comment: left 5th toe purple discolored, redness to buttocks/sacrum no openings, redness r hip, 4cm x 3cm necrotic right heel surrounded by red skin dry skin to r ft, thick toenails both feet - MUSCULOSKELETAL/RHEUMATOLOGICAL Hx Falls: Yes - GASTROINTESTINAL HX Swallowing Problems: Yes - GENITOURINARY/GYNECOLOGICAL Hx Urinary Tract Infection: Yes - PSYCHIATRIC Hx Depression: Yes - SURGICAL HISTORY Hx Mastectomy: No - ANESTHESIA Hx Anesthesia: Yes Hx Anesthesia Reactions: Yes (unknown; 2017) Hx Malignant Hyperthermia: No Meds Allergies/Adverse Reactions: Allergies Allergy/AdvReac Type Severity Reaction Status Date / Time No Known Allergies Allergy Verified 07/15/18 10:15 Physical Exam - Constitutional Appears: Non-toxic, No Acute Distress - Head Exam Head Exam: ATRAUMATIC, NORMOCEPHALIC - Eye Exam Eye Exam: EOMI, Normal appearance - ENT Exam ENT Exam: Mucous Membranes Moist - Neck Exam Neck exam: Positive for: Normal Inspection - Respiratory Exam Respiratory Exam: Clear to Auscultation Bilateral, NORMAL BREATHING PATTERN. absent: Accessory Muscle Use - Cardiovascular Exam Cardiovascular Exam: RRR, +S1, +S2 - GI/Abdominal Exam GI & Abdominal Exam: Normal Bowel Sounds, Soft. absent: Guarding, Rebound - Extremities Exam Extremities exam: Positive for: normal inspection. Negative for: calf tend erness - Neurological Exam Neurological exam: Alert - Psychiatric Exam Psychiatric exam: Normal Affect, Normal Mood - Skin Skin Exam: Dry, Intact, Normal Color, Warm Results - Vital Signs Recent Vital Signs: Last Vital Signs Temp 98.4 F 07/16/18 06:00 Pulse 68 07/16/18 06:00 Resp 18 07/16/18 06:00 BP 111/64 07/16/18 06:00 Pulse Ox 96 07/16/18 06:00 - Labs Result Diagrams: 07/16/18 05:45 07/16/18 05:45 Labs: Laboratory Results - last 24 hr 07/15/18 07/15/18 07/15/18 10:15 10:15 10:15 WBC 15.9 H D RBC 3.68 Hgb 11.3 L Hct 36.1 L MCV 98.1 D MCH 30.7 MCHC 31.3 RDW 14.0 Plt Count 360 MPV 9.9 Gran % 70.4 H Lymph % (Auto) 21.3 L [place] % (Auto) 5.5 Eos % (Auto) 1.9 Baso % (Auto) 0.9 Gran # 11.20 H Lymph # (Auto) 3.4 Grayson # (Auto) 0.9 H Eos # (Auto) 0.3 Baso # (Auto) 0.15 PT 13.8 H INR 1.20 APTT 32.1 pO2 34 VBG pH 7.33 VBG pCO2 52.0 VBG HCO3 27.4 VBG Total CO2 29.0 H VBG O2 Sat (Calc) 65.0 VBG Base Excess 0.6 VBG Potassium 5.6 H Sodium 144.0 Chloride 110.0 H Glucose 112 H Lactate 2.3 H FiO2 21.0 Potassium Carbon Dioxide Anion Gap BUN Creatinine Est GFR ( Amer) Est GFR (Non-Af Amer) Random Glucose Calcium Magnesium Total Bilirubin AST ALT Alkaline Phosphatase Lactate Dehydrogenase Total Creatine Kinase Troponin I NT-Pro-B Natriuret Pep Total Protein Albumin Globulin Albumin/Globulin Ratio Venous Blood Potassium 5.6 H Urine Color Urine Appearance Urine pH Ur Specific [place] Urine Protein Urine Glucose (UA) Urine Ketones Urine Blood Urine Nitrate Urine Bilirubin Urine Urobilinogen Ur Leukocyte Esterase Urine RBC Urine WBC Ur Epithelial Cells Urine Bacteria Influenza Typ A,B (EIA) 07/15/18 07/15/18 07/15/18 10:15 10:15 11:35 WBC RBC Hgb Hct MCV MCH MCHC RDW Plt Count MPV Gran % Lymph % (Auto) [place] % (Auto) Eos % (Auto) Baso % (Auto) Gran # Lymph # (Auto) [place] # (Auto) Eos # (Auto) Baso # (Auto) PT INR APTT pO2 VBG pH VBG pCO2 VBG HCO3 VBG Total CO2 VBG O2 Sat (Calc) VBG Base Excess VBG Potassium Sodium 144 Chloride 110 H Glucose Lactate FiO2 Potassium 5.6 H* D Carbon Dioxide 26 Anion Gap 14 BUN 58 H Creatinine 3.5 H Est GFR ( Amer) 20 Est GFR (Non-Af Amer) 17 Random Glucose 111 H Calcium 9.0 Magnesium 2.1 Total Bilirubin 0.4 AST 24 ALT 23 Alkaline Phosphatase 85 Lactate Dehydrogenase 536 Total Creatine Kinase < 20 L Troponin I < 0.01 D NT-Pro-B Natriuret Pep 62158 H Total Protein 7.0 Albumin 3.0 Globulin 4.0 Albumin/Globulin Ratio 0.8 L Venous Blood Potassium Urine Color Yellow Urine Appearance Cloudy Urine pH 7.0 Ur Specific [place] 1.020 Urine Protein 100 H Urine Glucose (UA) Negative Urine Ketones Negative Urine Blood Moderate H Urine Nitrate Negative Urine Bilirubin Negative Urine Urobilinogen 0.2 Ur Leukocyte Esterase Large H Urine RBC 0 - 2 Urine WBC Tntc Ur Epithelial Cells 0 - 2 Urine Bacteria Many Influenza Typ A,B (EIA) Negative for flu a/b 07/15/18 07/16/18 13:30 05:45 WBC 11.0 D RBC 3.00 L Hgb 9.0 L D Hct 29.6 L MCV 98.7 MCH 30.0 MCHC 30.4 L RDW 14.1 Plt Count 279 MPV 9.9 Gran % Lymph % (Auto) [place] % (Auto) Eos % (Auto) Baso % (Auto) Gran # Lymph # (Auto) [place] # (Auto) Eos # (Auto) Baso # (Auto) PT INR APTT pO2 78 H VBG pH 7.21 L VBG pCO2 56.0 VBG HCO3 22.4 VBG Total CO2 24.1 VBG O2 Sat (Calc) 94.6 H VBG Base Excess -6.1 L VBG Potassium 4.5 Sodium 147.0 Chloride 114.0 H Glucose 96 Lactate 3.3 H FiO2 21.0 Potassium Carbon Dioxide Anion Gap BUN Creatinine Est GFR ( Amer) Est GFR (Non-Af Amer) Random Glucose Calcium Magnesium Total Bilirubin AST ALT Alkaline Phosphatase Lactate Dehydrogenase Total Creatine Kinase Troponin I NT-Pro-B Natriuret Pep Total Protein Albumin Globulin Albumin/Globulin Ratio Venous Blood Potassium 4.5 Urine Color Urine Appearance Urine pH Ur Specific [place] Urine Protein Urine Glucose (UA) Urine Ketones Urine Blood Urine Nitrate Urine Bilirubin Urine Urobilinogen Ur Leukocyte Esterase Urine RBC Urine WBC Ur Epithelial Cells Urine Bacteria Influenza Typ A,B (EIA) - EKG Data EKG Interpreted by: Myself EKG shows normal: Sinus rhythm (with prolonged QT interval of 0.201) Assessment & Plan - Assessment and Plan (Free Text) Assessment: 82 year old male with a past medical history of Alzheimer's dementia, CAD, CVA, CKD III/IV, and UTIs who presented [place] [facility] [place] nursing for shortness of breath, altered mental status, and was found to have sepsis likely secondary to UTI. Plan: 1) Sepsis likely secondary to UTI - UA positive for Leukocyte esterase and numerous WBC - Leukocytosis and elevated lactic acid - Chest X-ray showed no infiltrate - 1 L of NS given in the ED with Vancomycin and Zosyn - ID consulted, agree with Meropenem, appreciate recommendations 2) ELISEO on CKD - Creatinine on admission 3.5; baseline is Creatinine is 2.5. This morning Cr is 2.9 - Gentle Hydration with 60 mls/hr of NS - Strict I/O - Patient had over one L of urine output noted in Wong this morning - PTH, 25- Hydroxyvitamin D order - Avoid nephrotoxins and dose antibiotics renally 3) Hyperkalemia - Initial K was 5.6 yesterday with 15 g of Kayexelate given; today K is 4.8 this morning 4) Elevated BNP - 16,000 on admisison; likely elevated secondary to sepsis versus CHF; last echo on 03/2017 showed EF between 55-60% and mild to moderate Aortic stenosis - Chest x-ray shows no vascular congestion; no rales or crackles on lung exam or lower extremity edema 5) Hyperphosphatemia - Phosphorus elevated at 5.3 - Sevelamer 800 mg TID with meals 6) Anemia with MCV of 98 - Vitamin B12 and Folate ordered given the MCV is close to 100 without reticucytosis - Iron 41, TIBC normal, % saturation is 23; iron deficiency not likely the etiology 7) Dementia - Continue Memantine 10 mg 8) CAD - Aspirin 81 - Metoprolol 25 mg BID - Atorvastatin 40 mg DIN: this was increased from 10 mg 9) History of Depression and anxiety disorder, unspecified - Mirtazipine 15 mg HS - Alprazolam 0.25 mg q8h PRN 10) DVT prophylaxis - SCD Resuscitation status: DNI Case reviewed and discussed with attending physician, Dr. Newman - Date & Time Date: 07/16/18 Time: 11:27 <Jakob Newman - Last Filed: 07/16/18 20:53> Results - Vital Signs Recent Vital Signs: Last Vital Signs Temp 98 F 07/16/18 18:46 Pulse 57 L 07/16/18 18:46 Resp 18 07/16/18 18:46 BP 112/59 L 07/16/18 18:46 Pulse Ox 100 07/16/18 18:46 - Labs Result Diagrams: 07/16/18 05:45 07/16/18 05:45 Labs: Laboratory Results - last 24 hr 07/16/18 07/16/18 07/16/18 05:45 05:45 05:45 WBC 11.0 D RBC 3.00 L Hgb 9.0 L D Hct 29.6 L MCV 98.7 MCH 30.0 MCHC 30.4 L RDW 14.1 Plt Count 279 MPV 9.9 Retic Count 1.35 pCO2 pO2 HCO3 ABG pH ABG Total CO2 ABG O2 Saturation ABG O2 Content ABG Base Excess ABG Hemoglobin ABG Carboxyhemoglobin POC ABG HHb (Measured) ABG Methemoglobin ABG O2 Capacity Hgb O2 Saturation FiO2 Sodium 148 Potassium 4.8 Chloride 117 H Carbon Dioxide 23 Anion Gap 13 BUN 54 H Creatinine 3.1 H Est GFR ( Amer) 24 Est GFR (Non-Af Amer) 19 Random Glucose 90 Lactic Acid Calcium 8.0 L Phosphorus 5.3 H Magnesium 2.0 Iron TIBC % Saturation Transferrin Ferritin Total Bilirubin 0.5 AST 28 ALT 13 Alkaline Phosphatase 62 Troponin I Total Protein 6.7 Albumin 2.7 L Globulin 3.9 Albumin/Globulin Ratio 0.7 L Vitamin B12 25-OH Vitamin D Total Folate 07/16/18 07/16/18 07/16/18 06:55 09:05 09:05 WBC RBC Hgb Hct MCV MCH MCHC RDW Plt Count MPV Retic Count pCO2 36 pO2 194.0 H HCO3 23.4 ABG pH 7.42 ABG Total CO2 24.5 ABG O2 Saturation 98.1 H ABG O2 Content 13.1 L ABG Base Excess -0.9 ABG Hemoglobin 9.3 L ABG Carboxyhemoglobin 0.3 L POC ABG HHb (Measured) 1.9 ABG Methemoglobin 0.7 ABG O2 Capacity 13.4 L Hgb O2 Saturation 97.0 FiO2 50.0 Sodium Potassium Chloride Carbon Dioxide Anion Gap BUN Creatinine Est GFR ( Amer) Est GFR (Non-Af Amer) Random Glucose Lactic Acid Calcium Phosphorus Magnesium Iron 41 L TIBC 176 L % Saturation 23 Transferrin Ferritin 885.0 Total Bilirubin AST ALT Alkaline Phosphatase Troponin I < 0.01 Total Protein Albumin Globulin Albumin/Globulin Ratio Vitamin B12 444 25-OH Vitamin D Total Folate 12.6 07/16/18 07/16/18 07/16/18 09:05 09:05 14:00 WBC RBC Hgb Hct MCV MCH MCHC RDW Plt Count MPV Retic Count pCO2 pO2 HCO3 ABG pH ABG Total CO2 ABG O2 Saturation ABG O2 Content ABG Base Excess ABG Hemoglobin ABG Carboxyhemoglobin POC ABG HHb (Measured) ABG Methemoglobin ABG O2 Capacity Hgb O2 Saturation FiO2 Sodium Potassium Chloride Carbon Dioxide Anion Gap BUN Creatinine Est GFR ( Amer) Est GFR (Non-Af Amer) Random Glucose Lactic Acid 1.4 Calcium Phosphorus Magnesium Iron TIBC % Saturation Transferrin 108.39 L Ferritin Total Bilirubin AST ALT Alkaline Phosphatase Troponin I Total Protein Albumin Globulin Albumin/Globulin Ratio Vitamin B12 25-OH Vitamin D Total 49.0 Folate Assessment & Plan - Assessment and Plan (Free Text) Plan: Pt seen and examined by me. I have reviewed the note by the program medical director. The case was discussed and reviewed with the resident. I reviewed the medications and labs. Pt with ELISEO and UTI. He on IV Abx. Will continue with DNI status. Cr is improving. Will need to evaluate for the cause of the anemia. Most likely has secondary hyperparathyroidism. Increase Lipitor.
--- NOTE | 2018-07-16 08:01 | PN ---
DATE: 07/16/2018 SUBJECTIVE: The patient is in bed, in no acute distress, was seen earlier this morning. PHYSICAL EXAMINATION: Temperature is 98, blood pressure is 111/60, respiratory rate of 18. HEENT: Examination of HEENT is unremarkable. NECK: Supple. LUNGS: Have decreased breath sounds. HEART: Normal S1, S2. ABDOMEN: Soft, nontender. LABORATORY DATA: Laboratory examination reveals the white count is down to 11,000, hemoglobin of 9. Chemistries reveals a BUN of 58, creatinine of 3.5. Urinalysis is noted. Serology is noted. Microbiology is pending. Review of orders reveals the patient is on meropenem. ASSESSMENT AND PLAN: An 82-year-old male who was seen earlier this morning with past medical history significant for Alzheimer's dementia, hypertension, coronary artery disease, cerebrovascular accident, diabetes mellitus, kidney disease, urinary tract infections, who was admitted from a longterm, shortness of breath, change in mental status, fevers and white count and severe sepsis with acute kidney involvement, kidney injury and renal function has changed from 1.9 to 3.5. Currently, on meropenem. Waiting for pancultures, blood and urine cultures. We will follow with you. Moe Zamora MD
[2018-07-16 08:09] LABS: ALB/GLOB RATIO 0.7 (1.1-1.8); ALBUMIN 2.7 g/dL (3.0-4.8)
[2018-07-16 08:25] LABS: ARTERIAL BLOOD GAS HCO3 23.4 mmol/L (21-28); ARTERIAL BLOOD GAS HEMOGLOBIN 9.3 g/dL (11.7-17.4); ARTERIAL BLOOD GAS O2 CAPACITY 13.4 mL/dl (16-24); ARTERIAL BLOOD GAS O2 CONTENT 13.1 ML/dl (15-23); ARTERIAL BLOOD GAS O2 SAT 98.1 % (95-98); ARTERIAL BLOOD GAS PCO2 36 mm/Hg (35-45); ARTERIAL BLOOD GAS PH 7.42 (7.35-7.45); ARTERIAL BLOOD GAS TCO2 24.5 mmol.L (22-28)
--- NOTE | 2018-07-16 08:25 | CON ---
DATE: 07/15/2018 The patient seen in the emergency room. CHIEF COMPLAINT: Shortness of breath and temperature of 102 times 1 day duration. HISTORY OF PRESENT ILLNESS: This is an 82-year-old male known to me from previous admission with a history of cerebrovascular accident, hypertension, diabetes, dementia, urinary retention, renal failure, macular degeneration, mesenteric ischemia and Strep mitis bacteremia, who was admitted through the emergency room because of shortness of breath and the patient has had a temperature of 102. The patient is a poor historian. REVIEW OF SYSTEMS: Reveals there are fevers and chills and shortness of breath. No abdominal pain. There is mild cough. No headaches or blurred vision. No rash. The patient is unable to give an accurate history and information is gathered from the chart. Twelve-point review of systems is performed. PAST MEDICAL HISTORY: Significant for cerebrovascular accident, hypertension, dementia, diabetes, urinary retention, renal failure, macular degeneration, mesenteric ischemia, Strep mitis bacteremia. PAST SURGICAL HISTORY: Significant for appendectomy. ALLERGIES: THE PATIENT HAS NO KNOWN ALLERGIES TO ANY ANTIBIOTICS. MEDICATIONS AT HOME: Reviewed. PHYSICAL EXAMINATION GENERAL: The patient is in bed, appearing chronically ill, cachectic. VITAL SIGNS: Temperature of 102, heart rate of 112, blood pressure is 95/60, respiratory rate of 26, O2 saturation is 100% on BiPAP. BMI is 28. HEENT: Unremarkable. NECK: Supple. LUNGS: Have decreased breath sounds. HEART: Normal S1, S2. ABDOMEN: Soft, nontender. SKIN: Examination of the patient's foot, on the heel, the patient has an ulcer. Left fifth toe is purplish and discolored. There is mild redness in the sacrum and right hip. There is also a right heel necrotic ulcer. LABORATORY DATA: Reveals a white count of 15,900 and hemoglobin of 11. Coagulation is noted. Chemistry reveals a BUN of 58, creatinine of 3.5. The BNP is 16,000. Albumin is 3. Glucose is 111. Urinalysis is noted, too numerous to count wbc's, many bacteria. Influenza is negative. Microbiology from previous admissions reveals Pseudomonas from the foot and intermediate to meropenem, resistant to cefepime, sensitive to Cipro, and yeast in the urine in the past. The patient had blood culture in 2017, one bottle for Strep mitis. Chest x-ray is negative. ASSESSMENT AND PLAN: This is an 82-year-old male with cerebrovascular accident, dementia, hypertension, diabetes mellitus, renal disease, multiple macular degeneration, and urinary retention, now with temperature of 102, tachycardia, dyspnea, hypotension, leukocytosis and positive urinalysis and with a creatinine which has gone up to 3.5, but number one is severe sepsis with urine as a source and with acute kidney injury with a creatinine change from 1.9 to 3.5. We will treat the patient with meropenem at 500 mg every 12 hours, pending blood culture, urine culture. Overall prognosis poor for this patient who appears chronically ill and debilitated. Urine cultures have been ordered. We will order blood culture since the patient also has a temperature of 102. No blood cultures have been ordered thus far. We will follow with you. Unfortunately, the antibiotics have been given already prior to his blood cultures being done. Moe Zamora MD
[2018-07-16 09:29] LABS: IRON 41 ug/dL (45-180)
[2018-07-16 09:34] LABS: TROPONIN I < 0.01 ng/mL
[2018-07-16 09:38] LABS: % IRON SATURATION 23 % (20-55); TOTAL IRON BINDING CAPACITY 176 ug/dL (261-462)
--- NOTE | 2018-07-16 10:00 | CARD ---
APPROVED REPORT Date of service: 07/15/2018 EKG Measurement Heart [id number] <Conclusion> Sinus tachycardia Nonspecific ST and T wave abnormality prolonged QTc Inverted T waves V 2 - 6 no longer present.
[2018-07-16] MEDS ORDERED: Sodium Chloride 0.9% 1,000 ML IV SCH (10:45)
[2018-07-16] MEDS: MEROPENEM 500 MG in NS 500 MG/50 ML BAG IVPB SCH ×2 (10:56→22:39)
--- NOTE | 2018-07-16 11:12 | CARD ---
APPROVED REPORT Date of service: 07/16/2018 EKG Measurement Heart [id number] <Conclusion> Normal sinus rhythm Nonspecific T wave abnormality Prolonged QT Abnormal ECG
[2018-07-16 17:33] VITALS: RESP 18
[2018-07-16 18:23] LABS: FOLATE 12.6 ng/mL
[2018-07-16 18:47] VITALS: O2SAT 100
--- NOTE | 2018-07-17 04:37 | CON ---
DATE: 07/16/2018 REFERRING PHYSICIAN: . REASON FOR CONSULTATION: Sepsis and respiratory failure. HISTORY OF PRESENT ILLNESS: This is an 82-year-old gentleman with a past medical history significant for history of coronary artery disease, dementia, stroke, renal failure and Alzheimer-type dementia; brought into emergency room because of fever, leukocytosis and elevated lactic acid. Has a respiratory failure requiring noninvasive ventilation. Presently much more awake and alert. Received antibiotics.. No hematuria, no diarrhea, no leg swelling reported. PAST MEDICAL HISTORY: As per history of present illness. SOCIAL HISTORY: There is no history of smoking. ALLERGIES: NONE KNOWN. FAMILY HISTORY: No significant cardiopulmonary disease reported. MEDICATIONS: Aspirin 81 mg daily, Lipitor 40 mg daily, metoprolol tartrate 25 mg twice a day, meropenem 500 mg every 12 hours, Namenda 10 mg daily, Remeron 15 mg at bedtime, Renagel 800 mg three times a day, IV fluid normal saline 60 mL per hour, Tylenol p.r.n., Xanax 0.25 mg every 8 hours. REVIEW OF SYSTEMS: Denies any headache. No rhinitis, no significant cough, no sputum production, no hemoptysis, no emesis, no hematuria, no leg swelling reported. PHYSICAL EXAMINATION: VITAL SIGNS: On noninvasive ventilation, temperature is 98, heart rate 67, respiratory rate 18, blood pressure 116/69, pulse ox 98% on 2 L on BiPAP. HEENT: Moist mucous membranes. Crowded airway. NECK: Supple. No JVD. LUNGS: Fair airflow with few rhonchi. HEART: S1 and S2. ABDOMEN: Soft, nontender. No organomegaly. EXTREMITIES: No edema. NEUROLOGIC: Awake, alert. Does follow simple commands. LABORATORY DATA: Shows hemoglobin 9.7, hematocrit 29.6, WBC 11, platelets 279. ABG showed pH of 7.42, pCO2 of 36, O2 of 94, this is on BiPAP with 50% oxygen. Sodium 148, potassium 4.8, chloride 117, bicarbonate 23, BUN 54, creatinine 3.1, glucose 90, lactic acid is 1.4, calcium is 8, phosphorus 5.3, magnesium 2. Iron 41, TIBC 176, transferrin 108. Ferritin is pending. AST 28, ALT 13, alk phos 62. Troponin less than 0.01. Albumin 2.7. Vitamin D is 49. Microbiology, blood cultures have been negative. IMPRESSION AND PLAN: Sepsis with respiratory failure, history of Alzheimer-type dementia, coronary artery disease, history of stroke, history of renal failure in the past. The patient is being treated with broad-spectrum antibiotics for healthcare-associated organism, seen by Infectious Disease. He is also placed on noninvasive ventilation; has anemia, depression, cardiomyopathy and valvular heart disease. I agree with the present management. Continue antibiotics, bronchodilator. Keep head at 45 degrees. I spoke with nursing staff, suggested to change his noninvasive ventilation to nasal cannula and titrate FiO2 to pulse ox above 90%. Pressure ulcer precaution. Follow up labs in the morning. We will get arterial blood gas in the morning. Thank you and we will follow with you. Nat Olvera MD
[2018-07-17 06:37] LABS: BASO # 0.09 K/mm3 (0.0-2.0); BASO % 1.1 % (0.0-3.0); EOS # 0.7 (0.0-0.7); EOS % 7.8 % (1.5-5.0); GRAN # 5.36 (1.4-6.5); GRAN % 64.6 % (50.0-68.0); HEMOGLOBIN 9.8 g/dL (14.0-18.0); LYMPH # 1.6 (1.2-3.4); LYMPH % 18.8 % (22.0-35.0); MEAN CELL VOLUME 98.5 fl (80.0-105.0); MEAN CORPUSCULAR HGB CONC 30.4 g/dl (31.0-37.0); MEAN PLATELET VOLUME 9.8 fl (7.0-11.0); MONO # 0.6 (0.1-0.6); MONO % 7.7 % (1.0-6.0); RBC 3.27 10^6/uL (3.5-6.1); RED CELL DISTRIBUTION WIDTH 14.2 % (11.5-14.5); WHITE BLOOD COUNT 8.3 10^3/uL (4.5-11.0)
[2018-07-17 06:47] LABS: ALB/GLOB RATIO 0.7 (1.1-1.8); ALBUMIN 2.7 g/dL (3.0-4.8); CALCIUM 8.3 mg/dL (8.4-10.5)
[2018-07-17 07:57] VITALS: TEMP 97.4
[2018-07-17] MEDS ORDERED: Darbepoetin Alfa 100 mcg/ml Inj SC ONE (08:42)
[2018-07-17] MEDS: MEROPENEM 500 MG in NS 500 MG/50 ML BAG IVPB SCH (09:40)
[2018-07-17 09:56] VITALS: BP 109/75; PULSE 71
[2018-07-17] MEDS ORDERED: Amoxicillin-Clav 875-125 mg Tab PO SCH (12:15)
--- NOTE | 2018-07-17 12:31 | CP.PCM.DIS ---
<Bibiana Wall - Last Filed: 07/17/18 16:10> Provider - Provider Date of Admission: 07/15/18 12:11 Attending physician: Jakob Newman MD Consults: Dr. Moe Zamora Time Spent in preparation of Discharge (in minutes): 35 Hospital Course - Lab Results Lab Results: Micro Results 07/15/18 11:35 Urine,Clean Catch Urine Culture - Final No Growth (<1,000 CFU/ML) 07/15/18 14:15 Blood Blood Culture - Preliminary NO GROWTH AFTER 24 HOURS 07/15/18 10:15 Blood Blood Culture - Preliminary NO GROWTH AFTER 24 HOURS Most Recent Lab Values WBC 8.3 10^3/uL (4.5-11.0) D 07/17/18 05:30 RBC 3.27 10^6/uL (3.5-6.1) L 07/17/18 05:30 Hgb 9.8 g/dL (14.0-18.0) L 07/17/18 05:30 Hct 32.2 % (42.0-52.0) L 07/17/18 05:30 MCV 98.5 fl (80.0-105.0) 07/17/18 05:30 MCH 30.0 pg (25.0-35.0) 07/17/18 05:30 MCHC 30.4 g/dl (31.0-37.0) L 07/17/18 05:30 RDW 14.2 % (11.5-14.5) 07/17/18 05:30 Plt Count 277 10^3/uL (120.0-450.0) 07/17/18 05:30 MPV 9.8 fl (7.0-11.0) 07/17/18 05:30 Gran % 64.6 % (50.0-68.0) 07/17/18 05:30 Lymph % (Auto) 18.8 % (22.0-35.0) L 07/17/18 05:30 [place] % (Auto) 7.7 % (1.0-6.0) H 07/17/18 05:30 Eos % (Auto) 7.8 % (1.5-5.0) H 07/17/18 05:30 Baso % (Auto) 1.1 % (0.0-3.0) 07/17/18 05:30 Gran # 5.36 (1.4-6.5) 07/17/18 05:30 Lymph # (Auto) 1.6 (1.2-3.4) 07/17/18 05:30 [place] # (Auto) 0.6 (0.1-0.6) 07/17/18 05:30 Eos # (Auto) 0.7 (0.0-0.7) 07/17/18 05:30 Baso # (Auto) 0.09 K/mm3 (0.0-2.0) 07/17/18 05:30 Retic Count 1.35 % (0.5-1.5) 07/16/18 05:45 PT 13.8 SECONDS (9.4-12.5) H 07/15/18 10:15 INR 1.20 07/15/18 10:15 APTT 32.1 Seconds (25.1-36.5) 07/15/18 10:15 pCO2 36 mm/Hg (35-45) 07/16/18 06:55 pO2 194.0 mm/Hg (80-100) H 07/16/18 06:55 HCO3 23.4 mmol/L (21-28) 07/16/18 06:55 ABG pH 7.42 (7.35-7.45) 07/16/18 06:55 ABG Total CO2 24.5 mmol.L (22-28) 07/16/18 06:55 ABG O2 Saturation 98.1 % (95-98) H 07/16/18 06:55 ABG O2 Content 13.1 ML/dl (15-23) L 07/16/18 06:55 ABG Base Excess -0.9 mmol/L (-2.0-3.0) 07/16/18 06:55 ABG Hemoglobin 9.3 g/dL (11.7-17.4) L 07/16/18 06:55 ABG Carboxyhemoglobin 0.3 % (0.5-1.5) L 07/16/18 06:55 POC ABG HHb (Measured) 1.9 % (0-5) 07/16/18 06:55 ABG Methemoglobin 0.7 % (0.0-3.0) 07/16/18 06:55 ABG O2 Capacity 13.4 mL/dl (16-24) L 07/16/18 06:55 VBG pH 7.21 (7.32-7.43) L 07/15/18 13:30 VBG pCO2 56.0 (40-60) 07/15/18 13:30 VBG HCO3 22.4 mmol/l (21-28) 07/15/18 13:30 VBG Total CO2 24.1 mmol.L (22-28) 07/15/18 13:30 VBG O2 Sat (Calc) 94.6 % (40-65) H 07/15/18 13:30 VBG Base Excess -6.1 mmol/L (0.0-2.0) L 07/15/18 13:30 VBG Potassium 4.5 mmol/L (3.6-5.2) 07/15/18 13:30 Hgb O2 Saturation 97.0 % (95.0-98.0) 07/16/18 06:55 Sodium 147.0 mmol/L (132-148) 07/15/18 13:30 Chloride 114.0 mmol/L (98-107) H 07/15/18 13:30 Glucose 96 mg/dl (75-110) 07/15/18 13:30 Lactate 3.3 mmol/L (0.7-2.1) H 07/15/18 13:30 FiO2 50.0 % 07/16/18 06:55 Sodium 148 mmol/L (132-148) 07/17/18 05:30 Potassium 4.0 mmol/L (3.6-5.0) 07/17/18 05:30 Chloride 119 mmol/L (98-107) H 07/17/18 05:30 Carbon Dioxide 22 mmol/L (21-33) 07/17/18 05:30 Anion Gap 11 (10-20) 07/17/18 05:30 BUN 53 mg/dL (7-21) H 07/17/18 05:30 Creatinine 2.8 mg/dl (0.8-1.5) H 07/17/18 05:30 Est GFR ( Amer) 27 07/17/18 05:30 Est GFR (Non-Af Amer) 22 07/17/18 05:30 Random Glucose 67 mg/dL (70-110) L 07/17/18 05:30 Lactic Acid 1.4 mmol/L (0.7-2.1) 07/16/18 14:00 Calcium 8.3 mg/dL (8.4-10.5) L 07/17/18 05:30 Phosphorus 3.7 mg/dL (2.5-4.5) 07/17/18 05:30 Magnesium 2.1 mg/dL (1.7-2.2) 07/17/18 05:30 Iron 41 ug/dL (45-180) L 07/16/18 09:05 TIBC 176 ug/dL (261-462) L 07/16/18 09:05 % Saturation 23 % (20-55) 07/16/18 09:05 Transferrin 108.39 mg/dL (206-381) L 07/16/18 09:05 Ferritin 885.0 ng/mL 07/16/18 09:05 Total Bilirubin 0.4 mg/dL (0.2-1.3) 07/17/18 05:30 AST 45 U/L (17-59) 07/17/18 05:30 ALT 19 U/L (7-56) 07/17/18 05:30 Alkaline Phosphatase 74 U/L (38-126) 07/17/18 05:30 Lactate Dehydrogenase 536 U/L (333-699) 07/15/18 10:15 Total Creatine Kinase < 20 U/L (35-230) L 07/15/18 10:15 Troponin I < 0.01 ng/mL 07/16/18 09:05 NT-Pro-B Natriuret Pep 07404 pg/mL (0-450) H 07/15/18 10:15 Total Protein 6.5 g/dL (5.8-8.3) 07/17/18 05:30 Albumin 2.7 g/dL (3.0-4.8) L 07/17/18 05:30 Globulin 3.8 gm/dL 07/17/18 05:30 Albumin/Globulin Ratio 0.7 (1.1-1.8) L 07/17/18 05:30 Vitamin B12 444 pg/mL (239-931) 07/16/18 09:05 25-OH Vitamin D Total 49.0 NG/ML (30.0-100.0) 07/16/18 09:05 Folate 12.6 ng/mL 07/16/18 09:05 Venous Blood Potassium 4.5 mmol/L (3.6-5.2) 07/15/18 13:30 Urine Color Yellow (YELLOW) 07/15/18 11:35 Urine Appearance Cloudy (CLEAR) 07/15/18 11:35 Urine pH 7.0 (4.7-8.0) 07/15/18 11:35 Ur Specific [place] 1.020 (1.005-1.035) 07/15/18 11:35 Urine Protein 100 mg/dL (<30 mg/dL) H 07/15/18 11:35 Urine Glucose (UA) Negative mg/dL (NEGATIVE) 07/15/18 11:35 Urine Ketones Negative mg/dL (NEGATIVE) 07/15/18 11:35 Urine Blood Moderate (NEGATIVE) H 07/15/18 11:35 Urine Nitrate Negative (NEGATIVE) 07/15/18 11:35 Urine Bilirubin Negative (NEGATIVE) 07/15/18 11:35 Urine Urobilinogen 0.2 E.U./dL (<1 E.U./dL) 07/15/18 11:35 Ur Leukocyte Esterase Large Addie/uL (NEGATIVE) H 07/15/18 11:35 Urine RBC 0 - 2 /hpf (0-2) 07/15/18 11:35 Urine WBC Tntc /hpf (0-6) 07/15/18 11:35 Ur Epithelial Cells 0 - 2 /hpf (0-5) 07/15/18 11:35 Urine Bacteria Many (NEG) 07/15/18 11:35 Influenza Typ A,B (EIA) Negative for flu a/b (NEGATIVE) 07/15/18 10:15 - Hospital Course Hospital Course: Bibiana Wall DO, PGY-2: HPI for Dr. Newman 82 year old male with a past medical history of Alzheimer's dementia, CAD, CVA, CKD III/IV, and UTIs who presented to [facility] from a fdc for shortness of breath and altered mental status. In the ED he was found to be febrile with a l eukocytosis and elevated lactic acid. Chest X -ray showed no pneumonia, influezae swab was negative, while UA was suggestive of UTI. Patient was treated with IV Meropenem, with initial urine culture showing no growth. urine. His respiratory distress was managed with BIPAP and the help of Gas Controller, Dr. Olvera. He was discharged with IV antibiotics and the duration of therapy will be followed based on ID recommendations Discharge Exam - Head Exam Head Exam: ATRAUMATIC, NORMOCEPHALIC - Eye Exam Eye Exam: EOMI, Normal appearance - ENT Exam ENT Exam: Mucous Membranes Moist - Neck Exam Neck exam: Normal Inspection - Respiratory Exam Respiratory Exam: Clear to PA & Lateral, NORMAL BREATHING PATTERN - Cardiovascular Exam Cardiovascular Exam: RRR, +S1, +S2 - Extremities Exam Extremities exam: normal inspection - Neurological Exam Neurological exam: Alert - Psychiatric Exam Psychiatric exam: Normal Affect, Normal Mood - Skin Skin Exam: Dry, Intact, Normal Color, Warm Discharge Plan - Follow Up Plan Condition: GUARDED Disposition: NURSING FACILITY MEDICAID CERT Instructions: Heart Failure, Adult (DC), Sepsis, Adult (DC), Pulmonary Edema (DC), Urinary Tract Infection in Men (DC), Dysuria (GEN) Additional Instructions: 1) Patient to be transferred to [facility] 2) Continue medications as prescribed 3) Complete antibiotic therapy as prescribed 4) Follow-up with PMD within 1-2weeks 5) Return to ER if experiencing worsening of symptoms <Jakob Newman - Last Filed: 07/17/18 21:03> Provider - Provider Date of Admission: 07/15/18 12:11 Attending physician: Jakob Newman MD Hospital Course - Lab Results Lab Results: Micro Results 07/15/18 14:15 Blood Blood Culture - Preliminary NO GROWTH AFTER 48 HOURS 07/15/18 10:15 Blood Blood Culture - Preliminary NO GROWTH AFTER 48 HOURS 07/15/18 11:35 Urine,Clean Catch Urine Culture - Final No Growth (<1,000 CFU/ML) Most Recent Lab Values WBC 8.3 10^3/uL (4.5-11.0) D 07/17/18 05:30 RBC 3.27 10^6/uL (3.5-6.1) L 07/17/18 05:30 Hgb 9.8 g/dL (14.0-18.0) L 07/17/18 05:30 Hct 32.2 % (42.0-52.0) L 07/17/18 05:30 MCV 98.5 fl (80.0-105.0) 07/17/18 05:30 MCH 30.0 pg (25.0-35.0) 07/17/18 05:30 MCHC 30.4 g/dl (31.0-37.0) L 07/17/18 05:30 RDW 14.2 % (11.5-14.5) 07/17/18 05:30 Plt Count 277 10^3/uL (120.0-450.0) 07/17/18 05:30 MPV 9.8 fl (7.0-11.0) 07/17/18 05:30 Gran % 64.6 % (50.0-68.0) 07/17/18 05:30 Lymph % (Auto) 18.8 % (22.0-35.0) L 07/17/18 05:30 [place] % (Auto) 7.7 % (1.0-6.0) H 07/17/18 05:30 Eos % (Auto) 7.8 % (1.5-5.0) H 07/17/18 05:30 Baso % (Auto) 1.1 % (0.0-3.0) 07/17/18 05:30 Gran # 5.36 (1.4-6.5) 07/17/18 05:30 Lymph # (Auto) 1.6 (1.2-3.4) 07/17/18 05:30 [place] # (Auto) 0.6 (0.1-0.6) 07/17/18 05:30 Eos # (Auto) 0.7 (0.0-0.7) 07/17/18 05:30 Baso # (Auto) 0.09 K/mm3 (0.0-2.0) 07/17/18 05:30 Retic Count 1.35 % (0.5-1.5) 07/16/18 05:45 PT 13.8 SECONDS (9.4-12.5) H 07/15/18 10:15 INR 1.20 07/15/18 10:15 APTT 32.1 Seconds (25.1-36.5) 07/15/18 10:15 pCO2 36 mm/Hg (35-45) 07/16/18 06:55 pO2 194.0 mm/Hg (80-100) H 07/16/18 06:55 HCO3 23.4 mmol/L (21-28) 07/16/18 06:55 ABG pH 7.42 (7.35-7.45) 07/16/18 06:55 ABG Total CO2 24.5 mmol.L (22-28) 07/16/18 06:55 ABG O2 Saturation 98.1 % (95-98) H 07/16/18 06:55 ABG O2 Content 13.1 ML/dl (15-23) L 07/16/18 06:55 ABG Base Excess -0.9 mmol/L (-2.0-3.0) 07/16/18 06:55 ABG Hemoglobin 9.3 g/dL (11.7-17.4) L 07/16/18 06:55 ABG Carboxyhemoglobin 0.3 % (0.5-1.5) L 07/16/18 06:55 POC ABG HHb (Measured) 1.9 % (0-5) 07/16/18 06:55 ABG Methemoglobin 0.7 % (0.0-3.0) 07/16/18 06:55 ABG O2 Capacity 13.4 mL/dl (16-24) L 07/16/18 06:55 VBG pH 7.21 (7.32-7.43) L 07/15/18 13:30 VBG pCO2 56.0 (40-60) 07/15/18 13:30 VBG HCO3 22.4 mmol/l (21-28) 07/15/18 13:30 VBG Total CO2 24.1 mmol.L (22-28) 07/15/18 13:30 VBG O2 Sat (Calc) 94.6 % (40-65) H 07/15/18 13:30 VBG Base Excess -6.1 mmol/L (0.0-2.0) L 07/15/18 13:30 VBG Potassium 4.5 mmol/L (3.6-5.2) 07/15/18 13:30 Hgb O2 Saturation 97.0 % (95.0-98.0) 07/16/18 06:55 Sodium 147.0 mmol/L (132-148) 07/15/18 13:30 Chloride 114.0 mmol/L (98-107) H 07/15/18 13:30 Glucose 96 mg/dl (75-110) 07/15/18 13:30 Lactate 3.3 mmol/L (0.7-2.1) H 07/15/18 13:30 FiO2 50.0 % 07/16/18 06:55 Sodium 148 mmol/L (132-148) 07/17/18 05:30 Potassium 4.0 mmol/L (3.6-5.0) 07/17/18 05:30 Chloride 119 mmol/L (98-107) H 07/17/18 05:30 Carbon Dioxide 22 mmol/L (21-33) 07/17/18 05:30 Anion Gap 11 (10-20) 07/17/18 05:30 BUN 53 mg/dL (7-21) H 07/17/18 05:30 Creatinine 2.8 mg/dl (0.8-1.5) H 07/17/18 05:30 Est GFR ( Amer) 27 07/17/18 05:30 Est GFR (Non-Af Amer) 22 07/17/18 05:30 Random Glucose 67 mg/dL (70-110) L 07/17/18 05:30 Lactic Acid 1.4 mmol/L (0.7-2.1) 07/16/18 14:00 Calcium 8.3 mg/dL (8.4-10.5) L 07/17/18 05:30 Phosphorus 3.7 mg/dL (2.5-4.5) 07/17/18 05:30 Magnesium 2.1 mg/dL (1.7-2.2) 07/17/18 05:30 Iron 41 ug/dL (45-180) L 07/16/18 09:05 TIBC 176 ug/dL (261-462) L 07/16/18 09:05 % Saturation 23 % (20-55) 07/16/18 09:05 Transferrin 108.39 mg/dL (206-381) L 07/16/18 09:05 Ferritin 885.0 ng/mL 07/16/18 09:05 Total Bilirubin 0.4 mg/dL (0.2-1.3) 07/17/18 05:30 AST 45 U/L (17-59) 07/17/18 05:30 ALT 19 U/L (7-56) 07/17/18 05:30 Alkaline Phosphatase 74 U/L (38-126) 07/17/18 05:30 Lactate Dehydrogenase 536 U/L (333-699) 07/15/18 10:15 Total Creatine Kinase < 20 U/L (35-230) L 07/15/18 10:15 Troponin I < 0.01 ng/mL 07/16/18 09:05 NT-Pro-B Natriuret Pep 13181 pg/mL (0-450) H 07/15/18 10:15 Total Protein 6.5 g/dL (5.8-8.3) 07/17/18 05:30 Albumin 2.7 g/dL (3.0-4.8) L 07/17/18 05:30 Globulin 3.8 gm/dL 07/17/18 05:30 Albumin/Globulin Ratio 0.7 (1.1-1.8) L 07/17/18 05:30 Vitamin B12 444 pg/mL (239-931) 07/16/18 09:05 25-OH Vitamin D Total 49.0 NG/ML (30.0-100.0) 07/16/18 09:05 Folate 12.6 ng/mL 07/16/18 09:05 PTH Intact Whole Molec 56 pg/mL (14-64) 07/16/18 09:05 Venous Blood Potassium 4.5 mmol/L (3.6-5.2) 07/15/18 13:30 Urine Color Yellow (YELLOW) 07/15/18 11:35 Urine Appearance Cloudy (CLEAR) 07/15/18 11:35 Urine pH 7.0 (4.7-8.0) 07/15/18 11:35 Ur Specific [place] 1.020 (1.005-1.035) 07/15/18 11:35 Urine Protein 100 mg/dL (<30 mg/dL) H 07/15/18 11:35 Urine Glucose (UA) Negative mg/dL (NEGATIVE) 07/15/18 11:35 Urine Ketones Negative mg/dL (NEGATIVE) 07/15/18 11:35 Urine Blood Moderate (NEGATIVE) H 07/15/18 11:35 Urine Nitrate Negative (NEGATIVE) 07/15/18 11:35 Urine Bilirubin Negative (NEGATIVE) 07/15/18 11:35 Urine Urobilinogen 0.2 E.U./dL (<1 E.U./dL) 07/15/18 11:35 Ur Leukocyte Esterase Large Addie/uL (NEGATIVE) H 07/15/18 11:35 Urine RBC 0 - 2 /hpf (0-2) 07/15/18 11:35 Urine WBC Tntc /hpf (0-6) 07/15/18 11:35 Ur Epithelial Cells 0 - 2 /hpf (0-5) 07/15/18 11:35 Urine Bacteria Many (NEG) 07/15/18 11:35 Influenza Typ A,B (EIA) Negative for flu a/b (NEGATIVE) 07/15/18 10:15 - Hospital Course Hospital Course: Pt seen and examined. I have reviewed the note of the medical reviewer and agree with it. I have discussed the assessment and plan with the resident. I have reviewed the patient's labs and medications. Pt with UTI and on IV Abx. He has improved. He will finish [facility]x at [facility] where [facility]. I spoke to pt's family to give update.
--- NOTE | 2018-07-17 18:03 | PN ---
DATE: 07/17/2018 LOCATION: The patient seen earlier today in [facility], bed 1. SUBJECTIVE: No fevers, no chills. The patient is comfortable on exam. PHYSICAL EXAMINATION VITAL SIGNS: Temperature is 97. He did come in with a temperature of 102. Heart rate is 66, blood pressure is 112/60, and respiratory rate is 18. HEENT: Unremarkable. NECK: Supple. LUNGS: Decreased breath sounds. HEART: Normal S1 and S2. ABDOMEN: Soft. LABORATORY DATA: White count of 15,900 down to 8300, hemoglobin of 9. Chemistries are noted and creatinine is 2.8. Microbiology reveals the blood cultures are negative. Urine cultures are negative. Urinalysis is noted to have too numerous to count wbc's, many bacteria. Microbiology reveals the blood cultures have no growth from 07/15/2018. Urine cultures have no growth. Blood cultures have no growth. Review of emergency room chart is noted. ASSESSMENT AND PLAN: An 82-year-old male, seen in 364, bed 1, who has past medical history significant for Alzheimer's dementia, hypertension, coronary artery disease, cerebrovascular accident, diabetes, kidney disease, urinary tract infection, admitted with shortness of breath, change in mental status, fever with severe sepsis with acute kidney involvement with negative blood cultures, negative urine cultures; however, chest x-ray is noted to be clear and fortunately urine cultures are negative and currently on meropenem day #3. We will discontinue meropenem and go to p.o. Augmentin 875 p.o. b.i.d. x5 days. Moe Zamora MD
--- NOTE | 2018-07-19 17:42 | PQF ---
PROVIDER RESPONSE TEXT: Acute respiratory failure with hypercapnea REVIEWER QUERY TEXT: Respiratory Failure Acuity and Type Respiratory Failure is documented in the Medical Record. Please specify the type and acuity (includes suspected or probable) Such as: -- Acute respiratory failure - With hypoxia - With hypercapnia -- Chronic respiratory failure - With hypoxia - With hypercapnia -- Acute on chronic respiratory failure - With hypoxia - With hypercapnia -- Other, please specify The patient's Clinical Indicators include: Query created by: Leila Duckworth on 07/17/2018 9:53 AM Electronically signed by: Nat Olvera MD 07/19/2018 5:39 PM
== END 2018-07-17 15:50 | DRG 871 ==
LOC: ED 10:07 → ERH 12:11 → 2RNO 13:52 → 3RNO 07-16 18:16
PROVIDERS: ADMIT Internal Medicine Nephrology; ATTEND Internal Medicine Nephrology
PROC: 5A09457 Assistance with Respiratory Ventilation, 24-96 Consecutive Hours, Continuous Positive Airway Pressure (ICD-10-PCS; principal; 2018-07-15)
DX: A41.9 Sepsis, unspecified organism (principal); J96.02 Acute respiratory failure with hypercapnia; R64 Cachexia; N18.4 Chronic kidney disease, stage 4 (severe); N17.9 Acute kidney failure, unspecified; N39.0 Urinary tract infection, site not specified; I13.0 Hypertensive heart and chronic kidney disease with heart failure and stage 1 through stage 4 chronic kidney disease, or unspecified chronic kidney disease; I42.9 Cardiomyopathy, unspecified; R65.20 Severe sepsis without septic shock; I50.9 Heart failure, unspecified; E11.22 Type 2 diabetes mellitus with diabetic chronic kidney disease; G30.9 Alzheimer's disease, unspecified; F02.80 Dementia in other diseases classified elsewhere, unspecified severity, without behavioral disturbance, psychotic disturbance, mood disturbance, and anxiety; H35.30 Unspecified macular degeneration; R33.9 Retention of urine, unspecified; I25.10 Atherosclerotic heart disease of native coronary artery without angina pectoris; E78.5 Hyperlipidemia, unspecified; D64.9 Anemia, unspecified; F32.9 Major depressive disorder, single episode, unspecified; I25.2 Old myocardial infarction; Z86.73 Personal history of transient ischemic attack (TIA), and cerebral infarction without residual deficits; Z74.01 Bed confinement status

== ENCOUNTER 2018-07-29 18:43 | Inpatient (IN) | payer MEDICARE, OTHER ==
[2018-07-29 18:49] VITALS: BMI 17.2
[2018-07-29] MEDS ORDERED: Naloxone 0.4 mg/ml Inj (Adult) IV ONE ×2 (19:09→19:15)
[2018-07-29] MEDS ORDERED: Naloxone 0.4 mg/ml Inj (Adult) IVP STA (19:12)
[2018-07-29 19:25] LABS: BASO # 0.08 K/mm3 (0.0-2.0); BASO % 0.7 % (0.0-3.0); EOS % 0.2 % (1.5-5.0); GRAN # 7.94 (1.4-6.5); GRAN % 73.7 % (50.0-68.0); HEMOGLOBIN 10.3 g/dL (14.0-18.0); LYMPH # 1.7 (1.2-3.4); LYMPH % 15.6 % (22.0-35.0); MEAN CELL VOLUME 96.5 fl (80.0-105.0); MEAN CORPUSCULAR HEMOGLOBIN 30.4 pg (25.0-35.0); MEAN CORPUSCULAR HGB CONC 31.5 g/dl (31.0-37.0); MEAN PLATELET VOLUME 9.8 fl (7.0-11.0); MONO # 1.1 (0.1-0.6); MONO % 9.8 % (1.0-6.0); RBC 3.39 10^6/uL (3.5-6.1); RED CELL DISTRIBUTION WIDTH 15.1 % (11.5-14.5); WHITE BLOOD COUNT 10.8 10^3/uL (4.5-11.0)
--- NOTE | 2018-07-29 19:27 | ED PDOC ---
Arrival/HPI - General Chief Complaint: Weakness/Neurological Deficit Time Seen by Provider: 07/29/18 18:47 Historian: Custodial - History of Present Illness Narrative History of Present Illness (Text): 07/29/18 19:25 82 year old male, whose past medical history includes Alzheimer, dementia, CAD, CVA, and CKD, who presents to the ED complaining of drowsiness s/p medication, as per halfway. Patient is non-verbal in the ED and only responsive to painful stimuli. Full HPI and ROS limited due to patient's condition. Time/Duration: Prior to Arrival Symptom Onset: Gradual Symptom Course: Unchanged Activities at Onset: Light Context: Home Past Medical History - Provider Review Nursing Documentation Reviewed: Yes - Infectious Disease Hx of Infectious Diseases: None - Tetanus Immunization Tetanus Immunization: Unknown - Cardiac Hx IA: Yes Hx Hypertension: Yes - Pulmonary Hx Respiratory Disorders: No - Neurological HX Cerebrovascular Accident: Yes Hx Dementia: Yes - HEENT Hx Difficulty Chewing: Yes - Renal Hx Renal Disorder: No - Endocrine/Metabolic Hx Diabetes Mellitus Type 2: Yes - Hematological/Oncological Hx Cancer: No - Integumentary Hx Dermatological Disorder: Yes Hx Basal Cell Carcinoma: No Other/Comment: left 5th toe purple discolored, redness to buttocks/sacrum no openings, redness r hip, 4cm x 3cm necrotic right heel surrounded by red skin dry skin to r ft, thick toenails both feet - Musculoskeletal/Rheumatological Hx Falls: Yes - Gastrointestinal HX Swallowing Problems: Yes - Genitourinary/Gynecological Hx Urinary Tract Infection: Yes - Psychiatric Hx Depression: Yes Hx Substance Use: No - Surgical History Hx Mastectomy: No - Anesthesia Hx Anesthesia: Yes Hx Anesthesia Reactions: Yes (unknown; 2016) Hx Malignant Hyperthermia: No - Suicidal Assessment Feels Threatened In Home Enviroment: No Family/Social History - Physician Review Nursing Documentation Reviewed: Yes Family/Social History: Unknown Family HX Smoking Status: unknown Hx Alcohol Use: No Hx Substance Use: No Hx Substance Use Treatment: No Allergies/Home Meds Allergies/Adverse Reactions: Allergies No Known Allergies Allergy (Verified 07/15/18 10:15) Per EMS and which is at home. Pt is confused due to dementia Hx Home Medications: Home Meds Medication Instructions Recorded Confirmed Memantine [Namenda] 10 mg PO DAILY 01/30/18 07/15/18 ALPRAZolam [Xanax] 0.25 mg PO Q8 07/15/18 07/15/18 Aspirin [Aspirin Chewable] 81 mg PO DAILY 07/15/18 07/15/18 Metoprolol Tartrate [Lopressor] 25 mg PO BID 07/15/18 07/15/18 Mirtazapine [Remeron] 15 mg PO HS 07/15/18 07/15/18 Review of Systems - Review of Systems Systems not reviewed;Unavailable: Acuity of Condition Skin: Normal Physical Exam Vital Signs Reviewed: Yes Vital Signs Temp Pulse Resp BP Pulse Ox 07/29/18 18:43 96.1 F L 76 18 103/61 99 Temperature: Afebrile Blood Pressure: Normal Pulse: Regular Respiratory Rate: Normal Appearance: Positive for: Well-Appearing, Non-Toxic, Comfortable Pain Distress: None Mental Status: Positive for: Alert and Oriented X 3 - Systems Exam Head: Present: Atraumatic, Normocephalic Pupils: No: PERRL (pupuls 2-3mm reactive to light) Extroacular Muscles: Present: EOMI Conjunctiva: Present: Normal Mouth: Present: Moist Mucous Membranes Neck: Present: Normal Range of Motion Respiratory/Chest: Present: Clear to Auscultation, Good Air Exchange. No: Respiratory Distress, Accessory Muscle Use Cardiovascular: Present: Regular Rate and Rhythm, Normal S1, S2. No: Murmurs Abdomen: No: Tenderness, Distention, Peritoneal Signs Back: Present: Normal Inspection Upper Extremity: Present: Normal Inspection. No: Cyanosis, Edema Lower Extremity: Present: Other (contracted bilateral LE). No: Edema Neurological: Present: GCS=15, CN II-XII Intact, Speech Normal Skin: Present: Warm, Dry, Normal Color. 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 Plan: -- Labs -- Troponin -- CXR -- CT Head -- EKG -- Narcan -- Blood Culture -- UA -- Urine Culture Progress Note Sign out to Dr Diego to f/u labs, cxr, ct head and possible admision. - RAD Interpretation Radiology Orders: 07/29/18 19:07 CHEST PORTABLE [RAD] Stat 07/29/18 19:10 HEAD W/O CONTRAST [CT] Stat - Medication Orders Current Medication Orders: Discontinued Medications Naloxone HCl (Narcan) 0.4 mg IV ONCE ONE Stop: 07/29/18 19:16 Last Admin: 07/29/18 19:22 Dose: 0.4 mg eMAR Start Stop Document 07/29/18 19:22 SRE (Rec: 07/29/18 19:23 SRE [id number]) Intravenous Solution Start Date 07/29/18 Start Time 19:20 End Date 07/29/18 End time 19:21 Total Infusion Time 1 Naloxone HCl (Narcan) 0.4 mg IVP STAT STA Stop: 07/29/18 19:13 - Scribe Statement The provider has reviewed the documentation as recorded by the Scribe Gali Bui All medical record entries made by the Scribe were at my direction and personally dictated by me. I have reviewed the chart and agree that the record accurately reflects my personal performance of the history, physical exam, medical decision making, and the department course for this patient. I have also personally directed, reviewed, and agree with the discharge instructions and disposition. Disposition/Present on Arrival - Present on Arrival Any Indicators Present on Arrival: No History of DVT/PE: No History of Uncontrolled Diabetes: No Urinary Catheter: No History of Decub. Ulcer: No History Surgical Site Infection Following: None - Disposition Have Diagnosis and Disposition been Completed?: No Diagnosis: Altered mental status, unspecified Disposition: HOSPITALIZED Disposition Time: 20:00 Condition: FAIR Forms: T[employer] (Malagasy)
[2018-07-29 19:34] LABS: INR 1.29; PARTIAL THROMBOPLASTIN TIME 35.8 Seconds (25.1-36.5); PROTHROMBIN TIME 14.8 SECONDS (9.4-12.5)
[2018-07-29 19:48] LABS: TROPONIN I 0.01 ng/mL
[2018-07-29 20:02] LABS: ALB/GLOB RATIO 0.7 (1.1-1.8); ALT/SGPT 22 U/L (7-56); AST/SGOT 19 U/L (17-59); BLOOD UREA NITROGEN 49 mg/dL (7-21); CALCIUM 8.5 mg/dL (8.4-10.5); GFR NON-AFRICAN AMERICAN 19
[2018-07-29 20:02] LABS: URINE BILIRUBIN NEGATIVE (NEGATIVE); URINE BLOOD LARGE (NEGATIVE); URINE GLUCOSE (UA) NEGATIVE (NEGATIVE); URINE LEUKOCYTE ESTERASE LARGE Leu/uL (NEGATIVE); URINE PROTEIN 100 mg/dL (<30 mg/dL); URINE UROBILINOGEN 0.2 E.U./dL (<1 E.U./dL)
[2018-07-29 20:11] LABS: URINE APPEARANCE CLOUDY (CLEAR); URINE COLOR YELLOW (YELLOW)
--- NOTE | 2018-07-29 20:14 | ED PDOC ---
Physical Exam Vital Signs Reviewed: Yes Vital Signs Temp Pulse Resp BP Pulse Ox 07/29/18 19:55 73 18 103/51 L 97 07/29/18 18:43 96.1 F L 76 18 103/61 99 Temperature: Afebrile Blood Pressure: Normal Pulse: Regular Respiratory Rate: Normal Appearance: Positive for: Well-Appearing, Non-Toxic, Comfortable Pain Distress: None Mental Status: Positive for: Alert and Oriented X 3 - Systems Exam Head: Present: Atraumatic, Normocephalic Pupils: No: PERRL (2-3mm reaction to light. ) Extroacular Muscles: Present: EOMI Conjunctiva: Present: Normal Mouth: Present: Moist Mucous Membranes Neck: Present: Normal Range of Motion Respiratory/Chest: Present: Clear to Auscultation, Good Air Exchange. No: Respiratory Distress, Accessory Muscle Use Cardiovascular: Present: Regular Rate and Rhythm, Normal S1, S2. No: Murmurs Abdomen: No: Tenderness, Distention, Peritoneal Signs Back: Present: Normal Inspection Upper Extremity: Present: Normal Inspection. No: Cyanosis, Edema Lower Extremity: Present: Other (Bialteral LE contraction). No: Edema Neurological: Present: GCS=15, CN II-XII Intact, Speech Normal Skin: Present: Warm, Dry, Normal Color. No: Rashes Psychiatric: Present: Alert, Oriented x 3, Normal Insight, Normal Concentration Medical Decision Making ED Course and Treatment: 07/29/18 20:13 Case endorsed to me by Dr. Alexander pending labs, cxr, ct head and possible admission. 07/29/18 20:58 Chest X-ray reviewed, shows no acute processes. Case discussed with Dr. Newman, who is aware and agrees with plan. Accepts pt in to his service. Pt will be admitted to Telemetry for UTI and AMS. 07/29/18 21:02 CT Head: BRAIN There is brain atrophy and ventricular dilatation as well as periventricular white matter ischemic changes which appear chronic in nature. There is no acute parenchymal abnormality. Note is made of the suspected soft tissue mass at the pituitary gland with expansion of the pituitary fossa. Pituitary adenoma suspected with other etiologies less likely. Basal ganglia calcifications noted. VENTRICLES: No hydrocephalus. ORBITS: The orbits are unremarkable. SINUSES AND MASTOIDS: The paranasal sinuses and mastoid air cells are clear. BONES: No fracture. SOFT TISSUES: Unremarkable. IMPRESSION: Brain atrophy and ventricle dilatation. Periventricular white matter ischemic changes which appear chronic in nature. Pituitary mass suspected. Clinical correlation and correlation with MRI examination of the brain may be considered. Electronically signed on Jul 29, 2018 9:02:06 PM EST by: Christian Nayak M.D., Certified by [facility], Diagnostic Radiology case d/w dr newman will admit for uti and ams 07/30/18 02:05 - Lab Interpretations Lab Results: 07/29/18 19:15 07/29/18 19:15 Lab Results 07/29/18 19:46: Urine Color Yellow, Urine Appearance Cloudy, Urine pH 6.0, Ur Specific [place] 1.025, Urine Protein 100 H, Urine Glucose (UA) Negative, Urine Ketones Negative, Urine Blood Large H, Urine Nitrate Negative, Urine Bilirubin Negative, Urine Urobilinogen 0.2, Ur Leukocyte Esterase Large H, Urine RBC Pending, Urine WBC Pending 07/29/18 19:15: Ammonia < 9 L 07/29/18 19:15: Alcohol, Quantitative < 10 07/29/18 19:15: Sodium 139, Potassium 5.2 H, Chloride 106, Carbon Dioxide 25, Anion Gap 13, BUN 49 H, Creatinine 3.1 H, Est GFR ( Amer) 24, Est GFR (Non-Af Amer) 19, Random Glucose 151 H, Calcium 8.5, Phosphorus 4.3, Magnesium 2.1, Total Bilirubin 0.4, AST 19, ALT 22, Alkaline Phosphatase 74, Lactate Dehydrogenase 410, Total Creatine Kinase < 20 L, Troponin I 0.01, Total Protein 7.1, Albumin 3.0, Globulin 4.1, Albumin/Globulin Ratio 0.7 L 07/29/18 19:15: PT 14.8 H, INR 1.29, APTT 35.8 07/29/18 19:15: WBC 10.8, RBC 3.39 L, Hgb 10.3 L, Hct 32.7 L, MCV 96.5, MCH 30.4, MCHC 31.5, RDW 15.1 H, Plt Count 336, MPV 9.8, Gran % 73.7 H, Lymph % (Auto) 15.6 L, [place] % (Auto) 9.8 H, Eos % (Auto) 0.2 L, Baso % (Auto) 0.7, Gran # 7.94 H, Lymph # (Auto) 1.7, [place] # (Auto) 1.1 H, Eos # (Auto) 0.0, Baso # (Auto) 0.08 I have reviewed the lab results: Yes - RAD Interpretation Radiology Orders: 07/29/18 19:07 CHEST PORTABLE [RAD] Stat 07/29/18 19:10 HEAD W/O CONTRAST [CT] Stat Sludge Control Attendant: ED Physician, Radiologist - Medication Orders Current Medication Orders: Discontinued Medications Naloxone HCl (Narcan) 0.4 mg IV ONCE ONE Stop: 07/29/18 19:16 Last Admin: 07/29/18 19:22 Dose: 0.4 mg eMAR Start Stop Document 07/29/18 19:22 SRE (Rec: 07/29/18 19:23 SRE [id number]) Intravenous Solution Start Date 07/29/18 Start Time 19:20 End Date 07/29/18 End time 19:21 Total Infusion Time 1 - Scribe Statement The provider has reviewed the documentation as recorded by the Scribe Gali Bui All medical record entries made by the Scribe were at my direction and personally dictated by me. I have reviewed the chart and agree that the record accurately reflects my personal performance of the history, physical exam, [facility] decision making, and the department course for this patient. I have also personally directed, reviewed, and agree with the discharge instructions and disposition. Disposition/Present on Arrival - Present on Arrival Any Indicators Present on Arrival: No History of DVT/PE: No History of Uncontrolled Diabetes: No Urinary Catheter: No History of Decub. Ulcer: No History Surgical Site Infection Following: None - Disposition Have Diagnosis and Disposition been Completed?: Yes Diagnosis: Altered mental status, unspecified Disposition: HOSPITALIZED Disposition Time: 22:00 Patient Problems: Current Active Problems Problem Status Onset Altered mental status Acute Condition: FAIR
[2018-07-29 20:17] LABS: URINE RBC 20 - 25 /hpf (0-2)
[2018-07-29 20:18] LABS: URINE BACTERIA MANY (NEG); URINE WBC TNTC /hpf (0-6)
[2018-07-29] MEDS ORDERED: Cefepime 1gm in NS 100ml 1 GM/100 ML BAG IVPB STA (20:24)
[2018-07-29 20:39] LABS: BARBITURATES, UR NEGATIVE (NEGATIVE); BENZODIAZEPINES, UR POSITIVE (NEGATIVE); OPIATES, UR NEGATIVE (NEGATIVE); PHENCYCLIDINE, UR NEGATIVE (NEGATIVE)
[2018-07-29] MEDS ORDERED: Sodium Chloride 0.9% 1,000 ML IV STA (21:35)
--- NOTE | 2018-07-30 08:48 | CT ---
Date of service: 07/29/2018 PROCEDURE: CT HEAD WITHOUT CONTRAST. HISTORY: AMS COMPARISON: 03/01/2018 TECHNIQUE: Axial computed tomography images were obtained through the head/brain without intravenous contrast. Radiation dose: Total exam DLP = 1110.98 mGy-cm. This CT exam was performed using one or more of the following dose reduction techniques: Automated exposure control, adjustment of the mA and/or kV according to patient size, and/or use of iterative reconstruction technique. FINDINGS: HEMORRHAGE: No intracranial hemorrhage. BRAIN: No mass effect or edema. Severe atrophy and chronic infarcts, unchanged. VENTRICLES: Unremarkable. No hydrocephalus. CALVARIUM: Unremarkable. PARANASAL SINUSES: Unremarkable as visualized. No significant inflammatory changes. MASTOID AIR CELLS: Unremarkable as visualized. No inflammatory changes. OTHER FINDINGS: None. IMPRESSION: No acute hemorrhage.
--- NOTE | 2018-07-30 09:15 | CARD ---
APPROVED REPORT Date of service: 07/29/2018 EKG Measurement Heart [id number] <Conclusion> Normal sinus rhythm Nonspecific ST and T wave abnormality Prolonged QT Abnormal ECG
--- NOTE | 2018-07-30 09:16 | RAD ---
Date of service: 07/29/2018 HISTORY: altered mental status COMPARISON: 07/15/2018 FINDINGS: LUNGS: No active pulmonary disease. PLEURA: No significant pleural effusion identified, no pneumothorax apparent. CARDIOVASCULAR: Aortic calcification Normal cardiac size. No pulmonary vascular congestion. OSSEOUS STRUCTURES: No significant abnormalities. VISUALIZED UPPER ABDOMEN: Normal. OTHER FINDINGS: None. IMPRESSION: No active disease.
[2018-07-30] MEDS: Cefepime 1gm in NS 100ml 1 GM/100 ML BAG IVPB SCH (09:23)
--- NOTE | 2018-07-30 09:46 | CP.PCM.HP ---
<Bibiana Wall - Last Filed: 07/30/18 10:05> History of Present Illness - History of Present Illness History of Present Illness: Bibiana Wall DO, PGY-2: HPI for Dr. Newman 82 year old male with a past medical history of Alzheimer's dementia, CAD, CVA, CKD III/IV, and recurrent UTIs who [place] [facility] [place] for altered mental status. In the ED, he was found to afebrile with a white count of 10,000. Chest X -ray showed no pneumonia while head CT showed no acute changes. Urinalysis was positive for leukocyte esterase. At the time of my examination, the patient was resting comfortably. He denies any pain, visual changes, shortness of breath, or chest pain. He is not hallucinating or showing any signs of delirium. 12 point ROS was negative, although limited secondary to the patient's dementia. PMH: Alzheimer disease, CAD- as patient had NSTEMI in February of this year, CVA, CKD III, macular degeneration and recurrent UTI Past surgical history: appendectomy, SMA angioplasty Home meds: As per MAR Allergies: NKDA Social history: No EtOH, tobacco or drug use. Bed-bound Advanced directive via POLST: DNI Present on Admission - Present on Admission Any Indicators Present on Admission: No Review of Systems - Review of Systems All systems: reviewed and no additional remarkable complaints except (as per HPI) Past Patient History - Infectious Disease Hx of Infectious Diseases: None - Tetanus Immunizations Tetanus Immunization: Unknown - Past Social History Smoking Status: Never Smoked - CARDIAC Hx Hypertension: Yes - PULMONARY Hx Respiratory Disorders: No - NEUROLOGICAL HX Cerebrovascular Accident: Yes Hx Dementia: Yes - HEENT Hx Difficulty Chewing: Yes - RENAL Hx Chronic Kidney Disease: No - ENDOCRINE/METABOLIC Hx Diabetes Mellitus Type 2: Yes - HEMATOLOGICAL/ONCOLOGICAL Hx Cancer: No - INTEGUMENTARY Hx Dermatological Problems: Yes Hx Basil Cell: No Other/Comment: left 5th toe purple discolored, redness to buttocks/sacrum no openings, redness r hip, 4cm x 3cm necrotic right heel surrounded by red skin dry skin to r ft, thick toenails both feet - MUSCULOSKELETAL/RHEUMATOLOGICAL Hx Falls: Yes - GASTROINTESTINAL HX Swallowing Problems: Yes - GENITOURINARY/GYNECOLOGICAL Hx Urinary Tract Infection: Yes - PSYCHIATRIC Hx Depression: Yes - SURGICAL HISTORY Hx Mastectomy: No - ANESTHESIA Hx Anesthesia: Yes Hx Anesthesia Reactions: Yes (unknown; 2017) Hx Malignant Hyperthermia: No Meds Allergies/Adverse Reactions: Allergies Allergy/AdvReac Type Severity Reaction Status Date / Time No Known Allergies Allergy Verified 07/15/18 10:15 Physical Exam - Constitutional Appears: Non-toxic, No Acute Distress - Head Exam Head Exam: ATRAUMATIC, NORMOCEPHALIC - Eye Exam Eye Exam: EOMI, Normal appearance - ENT Exam ENT Exam: Mucous Membranes Moist - Neck Exam Neck exam: Positive for: Normal Inspection - Respiratory Exam Respiratory Exam: Clear to Auscultation Bilateral, NORMAL BREATHING PATTERN. ab sent: Accessory Muscle Use - Cardiovascular Exam Cardiovascular Exam: RRR, +S1, +S2 - GI/Abdominal Exam GI & Abdominal Exam: Normal Bowel Sounds, Soft - Extremities Exam Extremities exam: Positive for: normal inspection. Negative for: calf tenderness - Back Exam Back exam: NORMAL INSPECTION. absent: CVA tenderness (L), CVA tenderness (R) - Neurological Exam Neurological exam: Alert, CN II-XII Intact, Oriented x3 - Psychiatric Exam Psychiatric exam: Normal Affect, Normal Mood - Skin Skin Exam: Dry, Intact, Normal Color, Warm Results - Vital Signs Recent Vital Signs: Last Vital Signs Temp 97.3 F L 07/30/18 06:00 Pulse 865 H 07/30/18 06:00 Resp 16 07/30/18 06:00 BP 122/72 07/30/18 06:00 Pulse Ox 99 07/30/18 06:00 - Labs Result Diagrams: 07/30/18 09:40 07/30/18 09:40 Labs: Laboratory Results - last 24 hr 07/29/18 07/29/18 07/29/18 19:15 19:15 19:15 WBC 10.8 RBC 3.39 L Hgb 10.3 L Hct 32.7 L MCV 96.5 MCH 30.4 MCHC 31.5 RDW 15.1 H Plt Count 336 MPV 9.8 Gran % 73.7 H Lymph % (Auto) 15.6 L [place] % (Auto) 9.8 H Eos % (Auto) 0.2 L Baso % (Auto) 0.7 Gran # 7.94 H Lymph # (Auto) 1.7 [place] # (Auto) 1.1 H Eos # (Auto) 0.0 Baso # (Auto) 0.08 PT 14.8 H INR 1.29 APTT 35.8 Sodium 139 Potassium 5.2 H Chloride 106 Carbon Dioxide 25 Anion Gap 13 BUN 49 H Creatinine 3.1 H Est GFR ( Amer) 24 Est GFR (Non-Af Amer) 19 Random Glucose 151 H Calcium 8.5 Phosphorus 4.3 Magnesium 2.1 Total Bilirubin 0.4 AST 19 ALT 22 Alkaline Phosphatase 74 Ammonia Lactate Dehydrogenase 410 Total Creatine Kinase < 20 L Troponin I 0.01 Total Protein 7.1 Albumin 3.0 Globulin 4.1 Albumin/Globulin Ratio 0.7 L Urine Color Urine Appearance Urine pH Ur Specific [place] Urine Protein Urine Glucose (UA) Urine Ketones Urine Blood Urine Nitrate Urine Bilirubin Urine Urobilinogen Ur Leukocyte Esterase Urine RBC Urine WBC Ur Epithelial Cells Urine Bacteria Urine Opiates Screen Urine Methadone Screen Ur Barbiturates Screen Ur Phencyclidine Scrn Ur Amphetamines Screen U Benzodiazepines Scrn U Oth Cocaine Metabols U Cannabinoids Screen Alcohol, Quantitative 07/29/18 07/29/18 07/29/18 19:15 19:15 19:46 WBC RBC Hgb Hct MCV MCH MCHC RDW Plt Count MPV Gran % Lymph % (Auto) [place] % (Auto) Eos % (Auto) Baso % (Auto) Gran # Lymph # (Auto) [place] # (Auto) Eos # (Auto) Baso # (Auto) PT INR APTT Sodium Potassium Chloride Carbon Dioxide Anion Gap BUN Creatinine Est GFR ( Amer) Est GFR (Non-Af Amer) Random Glucose Calcium Phosphorus Magnesium Total Bilirubin AST ALT Alkaline Phosphatase Ammonia < 9 L Lactate Dehydrogenase Total Creatine Kinase Troponin I Total Protein Albumin Globulin Albumin/Globulin Ratio Urine Color Yellow Urine Appearance Cloudy Urine pH 6.0 Ur Specific [place] 1.025 Urine Protein 100 H Urine Glucose (UA) Negative Urine Ketones Negative Urine Blood Large H Urine Nitrate Negative Urine Bilirubin Negative Urine Urobilinogen 0.2 Ur Leukocyte Esterase Large H Urine RBC 20 - 25 Urine WBC Tntc Ur Epithelial Cells 10 - 12 Urine Bacteria Many Urine Opiates Screen Urine Methadone Screen Ur Barbiturates Screen Ur Phencyclidine Scrn Ur Amphetamines Screen U Benzodiazepines Scrn U Oth Cocaine Metabols U Cannabinoids Screen Alcohol, Quantitative < 10 07/29/18 19:46 WBC RBC Hgb Hct MCV MCH MCHC RDW Plt Count MPV Gran % Lymph % (Auto) [place] % (Auto) Eos % (Auto) Baso % (Auto) Gran # Lymph # (Auto) [place] # (Auto) Eos # (Auto) Baso # (Auto) PT INR APTT Sodium Potassium Chloride Carbon Dioxide Anion Gap BUN Creatinine Est GFR ( Amer) Est GFR (Non-Af Amer) Random Glucose Calcium Phosphorus Magnesium Total Bilirubin AST ALT Alkaline Phosphatase Ammonia Lactate Dehydrogenase Total Creatine Kinase Troponin I Total Protein Albumin Globulin Albumin/Globulin Ratio Urine Color Urine Appearance Urine pH Ur Specific [place] Urine Protein Urine Glucose (UA) Urine Ketones Urine Blood Urine Nitrate Urine Bilirubin Urine Urobilinogen Ur Leukocyte Esterase Urine RBC Urine WBC Ur Epithelial Cells Urine Bacteria Urine Opiates Screen Negative Urine Methadone Screen Negative Ur Barbiturates Screen Negative Ur Phencyclidine Scrn Negative Ur Amphetamines Screen Negative U Benzodiazepines Scrn Positive H U Oth Cocaine Metabols Negative U Cannabinoids Screen Negative Alcohol, Quantitative Assessment & Plan - Assessment and Plan (Free Text) Assessment: 82 year old male with a past medical history of Alzheimer's dementia, CAD, CVA, CKD III/IV, and UTIs who [place] [facility] [place] nursing for altered mental status. Plan: 1) UTI - UA positive for Leukocyte esterase and numerous WBC - Leukocytosis. improved - Cefepime 1 gram q24h 2) ELIESO on CKD - Creatinine on admission 3.2; baseline is Creatinine is 2.5. - Gentle Hydration with 60 mls/hr of NS - Strict I/O - Avoid nephrotoxins and dose antibiotics renally 3) Hyperkalemia - Initial K was 5.2 yesterday, repeat this morning was within normal limits 4) History of CHF - Chest x-ray shows no vascular congestion; no rales or crackles on lung exam or lower extremity edema 5) Hyperphosphatemia - Phosphorus elevated at 4.5 - Sevelamer 800 mg TID with meals 6) Dementia - Continue Memantine 10 mg 7) CAD - Aspirin 81 - Metoprolol 25 mg BID - Atorvastatin 40 mg DIN: this was increased from 10 mg 8) History of Depression and anxiety disorder, unspecified - Mirtazipine 15 mg HS - Alprazolam 0.25 mg q8h (held) 9) DVT prophylaxis - SCD Resuscitation status: DNI Case reviewed and discussed with attending physician, Dr. Newman - Date & Time Date: 07/30/18 Time: 10:15 <Jakob Newman S - Last Filed: 07/30/18 20:33> Results - Vital Signs Recent Vital Signs: Last Vital Signs Temp 97.2 F L 07/30/18 14:00 Pulse 66 07/30/18 14:00 Resp 20 07/30/18 14:00 BP 125/74 07/30/18 14:00 Pulse Ox 100 07/30/18 14:00 - Labs Result Diagrams: 07/30/18 09:40 07/30/18 09:40 Labs: Laboratory Results - last 24 hr 07/29/18 07/30/18 07/30/18 19:46 09:40 09:40 WBC 8.9 RBC 3.21 L Hgb 9.8 L Hct 31.3 L MCV 97.5 MCH 30.5 MCHC 31.3 RDW 15.1 H Plt Count 324 MPV 9.7 Gran % 67.3 Lymph % (Auto) 19.9 L [place] % (Auto) 8.5 H Eos % (Auto) 3.1 Baso % (Auto) 1.2 Gran # 6.01 Lymph # (Auto) 1.8 [place] # (Auto) 0.8 H Eos # (Auto) 0.3 Baso # (Auto) 0.11 Sodium 141 Potassium 5.0 Chloride 110 H Carbon Dioxide 26 Anion Gap 10 BUN 52 H Creatinine 3.2 H Est GFR ( Amer) 23 Est GFR (Non-Af Amer) 19 Random Glucose 75 Calcium 8.4 Phosphorus 4.9 H Magnesium 2.1 Total Bilirubin 0.4 AST 21 ALT 24 Alkaline Phosphatase 69 Total Protein 6.7 Albumin 2.7 L Globulin 4.0 Albumin/Globulin Ratio 0.7 L Urine Opiates Screen Negative Urine Methadone Screen Negative Ur Barbiturates Screen Negative Ur Phencyclidine Scrn Negative Ur Amphetamines Screen Negative U Benzodiazepines Scrn Positive H U Oth Cocaine Metabols Negative U Cannabinoids Screen Negative Assessment & Plan - Assessment and Plan (Free Text) Assessment: Pt seen and examined. I have reviewed the note of the medical insurance verifier and agree with it. I have discussed the assessment and plan with the resident. I have reviewed the patient's labs and medications. Pt with confusion and Delirium. He may have a UTI. He also has dysphagia according to [facility] nurse. I spoke with the nurse today. Pt with CAD is on ASA and Metoprolol. Hold Alprazolam for now. Swallowing evaluation ordered.
[2018-07-30 09:59] LABS: BASO # 0.11 K/mm3 (0.0-2.0); BASO % 1.2 % (0.0-3.0); EOS # 0.3 (0.0-0.7); EOS % 3.1 % (1.5-5.0); GRAN # 6.01 (1.4-6.5); GRAN % 67.3 % (50.0-68.0); HEMOGLOBIN 9.8 g/dL (14.0-18.0); LYMPH # 1.8 (1.2-3.4); LYMPH % 19.9 % (22.0-35.0); MEAN CELL VOLUME 97.5 fl (80.0-105.0); MEAN CORPUSCULAR HEMOGLOBIN 30.5 pg (25.0-35.0); MEAN CORPUSCULAR HGB CONC 31.3 g/dl (31.0-37.0); MEAN PLATELET VOLUME 9.7 fl (7.0-11.0); MONO # 0.8 (0.1-0.6); MONO % 8.5 % (1.0-6.0); RBC 3.21 10^6/uL (3.5-6.1); RED CELL DISTRIBUTION WIDTH 15.1 % (11.5-14.5); WHITE BLOOD COUNT 8.9 10^3/uL (4.5-11.0)
[2018-07-30 10:03] LABS: ALB/GLOB RATIO 0.7 (1.1-1.8); ALBUMIN 2.7 g/dL (3.0-4.8); CALCIUM 8.4 mg/dL (8.4-10.5)
[2018-07-30] MEDS ORDERED: Sodium Chloride 0.9% 1,000 ML IV SCH (10:15)
[2018-07-30] MEDS: Dextrose 5%/0.45% NS 1,000 ML IV SCH (12:35)
--- NOTE | 2018-07-30 16:57 | CP.PCM.CON ---
History of Present Illness - History of Present Illness History of Present Illness: 82 year old male with PMH of CVA, HTN, DM, dementia, chronic renal failure, macular degeneration, history of urinary retention, S/P Strep mitis bacteremia [place] [facility] [place] and not eating well. There was no note of fevers, no vomiting, no diarrhea, no loss of consciousness. Full ROS is unobtainable because of the patient's dementia. Infectious Diseases consult is requested to further evaluate and manage. Review of Systems - Review of Systems All systems: reviewed and no additional remarkable complaints except (as per HPI) Past Patient History - Infectious Disease Hx of Infectious Diseases: None - Tetanus Immunizations Tetanus Immunization: Unknown - Past Social History Smoking Status: Never Smoked - CARDIAC Hx Hypertension: Yes - PULMONARY Hx Respiratory Disorders: No - NEUROLOGICAL HX Cerebrovascular Accident: Yes Hx Dementia: Yes - HEENT Hx Difficulty Chewing: Yes - RENAL Hx Chronic Kidney Disease: No - ENDOCRINE/METABOLIC Hx Diabetes Mellitus Type 2: Yes - HEMATOLOGICAL/ONCOLOGICAL Hx Cancer: No - INTEGUMENTARY Hx Dermatological Problems: Yes Hx Basil Cell: No Other/Comment: left 5th toe purple discolored, redness to buttocks/sacrum no openings, redness r hip, 4cm x 3cm necrotic right heel surrounded by red skin dry skin to r ft, thick toenails both feet - MUSCULOSKELETAL/RHEUMATOLOGICAL Hx Falls: Yes - GASTROINTESTINAL HX Swallowing Problems: Yes - GENITOURINARY/GYNECOLOGICAL Hx Urinary Tract Infection: Yes - PSYCHIATRIC Hx Depression: Yes - SURGICAL HISTORY Hx Mastectomy: No - ANESTHESIA Hx Anesthesia: Yes Hx Anesthesia Reactions: Yes (unknown; 2016) Hx Malignant Hyperthermia: No Meds Allergies/Adverse Reactions: Allergies Allergy/AdvReac Type Severity Reaction Status Date / Time No Known Allergies Allergy Verified 07/15/18 10:15 - Medications Medications: Current Medications Acetaminophen (Tylenol 325mg Tab) 650 mg PO Q4H PRN PRN Reason: Pain, Mild (1-3) Aspirin (Aspirin Chewable) 81 mg PO DAILY [facility] Atorvastatin Calcium (Lipitor) 40 mg PO DIN [facility] Memantine (Namenda) 10 mg PO DAILY [facility] Metoprolol Tartrate (Lopressor) 25 mg PO BID [facility] Mirtazapine (Remeron) 15 mg PO HS [facility] Physical Exam - Constitutional Appears: No Acute Distress, Chronically Ill - Head Exam Head Exam: NORMAL INSPECTION - Neck Exam Neck exam: Negative for: Meningismus - Respiratory Exam Respiratory Exam: Decreased Breath Sounds - Cardiovascular Exam Cardiovascular Exam: +S1, +S2 - GI/Abdominal Exam GI & Abdominal Exam: Soft. absent: Tenderness Results - Vital Signs Recent Vital Signs: Last Vital Signs Temp 97.8 F 07/29/18 22:32 Pulse 77 07/29/18 22:32 Resp 18 07/29/18 22:35 BP 130/76 07/29/18 22:32 Pulse Ox 98 07/29/18 22:32 - Labs Result Diagrams: 07/30/18 09:40 07/30/18 09:40 Labs: Laboratory Results - last 24 hr 07/29/18 07/29/18 07/29/18 19:15 19:15 19:15 WBC 10.8 RBC 3.39 L Hgb 10.3 L Hct 32.7 L MCV 96.5 MCH 30.4 MCHC 31.5 RDW 15.1 H Plt Count 336 MPV 9.8 Gran % 73.7 H Lymph % (Auto) 15.6 L [place] % (Auto) 9.8 H Eos % (Auto) 0.2 L Baso % (Auto) 0.7 Gran # 7.94 H Lymph # (Auto) 1.7 [place] # (Auto) 1.1 H Eos # (Auto) 0.0 Baso # (Auto) 0.08 PT 14.8 H INR 1.29 APTT 35.8 Sodium 139 Potassium 5.2 H Chloride 106 Carbon Dioxide 25 Anion Gap 13 BUN 49 H Creatinine 3.1 H Est GFR ( Amer) 24 Est GFR (Non-Af Amer) 19 Random Glucose 151 H Calcium 8.5 Phosphorus 4.3 Magnesium 2.1 Total Bilirubin 0.4 AST 19 ALT 22 Alkaline Phosphatase 74 Ammonia Lactate Dehydrogenase 410 Total Creatine Kinase < 20 L Troponin I 0.01 Total Protein 7.1 Albumin 3.0 Globulin 4.1 Albumin/Globulin Ratio 0.7 L Urine Color Urine Appearance Urine pH Ur Specific [place] Urine Protein Urine Glucose (UA) Urine Ketones Urine Blood Urine Nitrate Urine Bilirubin Urine Urobilinogen Ur Leukocyte Esterase Urine RBC Urine WBC Ur Epithelial Cells Urine Bacteria Urine Opiates Screen Urine Methadone Screen Ur Barbiturates Screen Ur Phencyclidine Scrn Ur Amphetamines Screen U Benzodiazepines Scrn U Oth Cocaine Metabols U Cannabinoids Screen Alcohol, Quantitative 07/29/18 07/29/18 07/29/18 19:15 19:15 19:46 WBC RBC Hgb Hct MCV MCH MCHC RDW Plt Count MPV Gran % Lymph % (Auto) [place] % (Auto) Eos % (Auto) Baso % (Auto) Gran # Lymph # (Auto) [place] # (Auto) Eos # (Auto) Baso # (Auto) PT INR APTT Sodium Potassium Chloride Carbon Dioxide Anion Gap BUN Creatinine Est GFR ( Amer) Est GFR (Non-Af Amer) Random Glucose Calcium Phosphorus Magnesium Total Bilirubin AST ALT Alkaline Phosphatase Ammonia < 9 L Lactate Dehydrogenase Total Creatine Kinase Troponin I Total Protein Albumin Globulin Albumin/Globulin Ratio Urine Color Yellow Urine Appearance Cloudy Urine pH 6.0 Ur Specific [place] 1.025 Urine Protein 100 H Urine Glucose (UA) Negative Urine Ketones Negative Urine Blood Large H Urine Nitrate Negative Urine Bilirubin Negative Urine Urobilinogen 0.2 Ur Leukocyte Esterase Large H Urine RBC 20 - 25 Urine WBC Tntc Ur Epithelial Cells 10 - 12 Urine Bacteria Many Urine Opiates Screen Urine Methadone Screen Ur Barbiturates Screen Ur Phencyclidine Scrn Ur Amphetamines Screen U Benzodiazepines Scrn U Oth Cocaine Metabols U Cannabinoids Screen Alcohol, Quantitative < 10 07/29/18 19:46 WBC RBC Hgb Hct MCV MCH MCHC RDW Plt Count MPV Gran % Lymph % (Auto) [place] % (Auto) Eos % (Auto) Baso % (Auto) Gran # Lymph # (Auto) [place] # (Auto) Eos # (Auto) Baso # (Auto) PT INR APTT Sodium Potassium Chloride Carbon Dioxide Anion Gap BUN Creatinine Est GFR ( Amer) Est GFR (Non-Af Amer) Random Glucose Calcium Phosphorus Magnesium Total Bilirubin AST ALT Alkaline Phosphatase Ammonia Lactate Dehydrogenase Total Creatine Kinase Troponin I Total Protein Albumin Globulin Albumin/Globulin Ratio Urine Color Urine Appearance Urine pH Ur Specific [place] Urine Protein Urine Glucose (UA) Urine Ketones Urine Blood Urine Nitrate Urine Bilirubin Urine Urobilinogen Ur Leukocyte Esterase Urine RBC Urine WBC Ur Epithelial Cells Urine Bacteria Urine Opiates Screen Negative Urine Methadone Screen Negative Ur Barbiturates Screen Negative Ur Phencyclidine Scrn Negative Ur Amphetamines Screen Negative U Benzodiazepines Scrn Positive H U Oth Cocaine Metabols Negative U Cannabinoids Screen Negative Alcohol, Quantitative Assessment & Plan - Assessment and Plan (Free Text) Plan: Assessment R/O UTI in this patient with history of UTI's syncope, etiology to be determined history of necrotic pressure ulcer infection with probable osteomyelitis with Pseudomonas history of acute mesenteric ischemia associated with the superior and inferior m esenteric arteries now S/P angioplasty S/P Strep mitis bacteremia with 2D echo negative for vegetations CVA chronic renal failure HTN macular degeneration DM history of urinary retention Plan started Cefepime pending urine cx and PSA levels will monitor clinically
[2018-07-31 08:38] LABS: ALB/GLOB RATIO 0.7 (1.1-1.8); ALBUMIN 2.3 g/dL (3.0-4.8); CALCIUM 8.5 mg/dL (8.4-10.5)
[2018-07-31 08:58] VITALS: RESP 16
[2018-07-31] MEDS: Dextrose 5%/0.45% NS 1,000 ML IV SCH (09:56)
[2018-07-31] MEDS: Cefepime 1gm in NS 100ml 1 GM/100 ML BAG IVPB SCH (09:56)
[2018-07-31 15:25] VITALS: BP 115/74; PULSE 64; TEMP 98.9; O2SAT 98
--- NOTE | 2018-07-31 16:04 | CP.PCM.PN ---
Subjective - Date & Time of Evaluation Date of Evaluation: 07/31/18 Time of Evaluation: 08:15 - Subjective Subjective: Afebrile, not in distress. Objective - Vital Signs/Intake and Output Vital Signs (last 24 hours): Temp Pulse Resp BP Pulse Ox 97.2 F L 66 20 125/74 100 07/30/18 14:00 07/30/18 14:00 07/30/18 14:00 07/30/18 14:00 07/30/18 14:00 - Medications Medications: Current Medications Acetaminophen (Tylenol 325mg Tab) 650 mg PO Q4H PRN PRN Reason: Pain, Mild (1-3) Aspirin (Aspirin Chewable) 81 mg PO DAILY [facility] Last Admin: 07/30/18 09:23 Dose: Not Given Atorvastatin Calcium (Lipitor) 40 mg PO DIN [facility] Cefepime HCl (Maxipime 1gm) 1 gm in 100 mls @ 100 mls/hr IVPB Q24H [facility]; Protocol Last Admin: 07/30/18 09:23 Dose: 100 mls/hr Dextrose/Sodium Chloride (Dextrose 5%/0.45% Ns 1000 Ml) 1,000 mls @ 50 mls/hr IV .Q20H [facility] Memantine (Namenda) 10 mg PO DAILY [facility] Last Admin: 07/30/18 09:23 Dose: Not Given Metoprolol Tartrate (Lopressor) 25 mg PO BID [facility] Last Admin: 07/30/18 09:23 Dose: Not Given Mirtazapine (Remeron) 15 mg PO HS [facility] Sevelamer HCl (Renagel) 800 mg PO TID [facility] Last Admin: 07/30/18 16:45 Dose: Not Given - Labs Labs: 07/30/18 09:40 07/30/18 09:40 PT 14.8 SECONDS (9.4-12.5) H 07/29/18 19:15 INR 1.29 07/29/18 19:15 APTT 35.8 Seconds (25.1-36.5) 07/29/18 19:15 - Constitutional Appears: Chronically Ill - Head Exam Head Exam: NORMAL INSPECTION - Respiratory Exam Respiratory Exam: Decreased Breath Sounds - Cardiovascular Exam Cardiovascular Exam: +S1, +S2 - GI/Abdominal Exam GI & Abdominal Exam: Soft. absent: Tenderness Assessment and Plan - Assessment and Plan (Free Text) Plan: Assessment R/O UTI in this patient with history of UTI's syncope, etiology to be determined history of necrotic pressure ulcer infection with probable osteomyelitis with Pseudomonas history of acute mesenteric ischemia associated with the superior and inferior mesenteric arteries now S/P angioplasty S/P Strep mitis bacteremia with 2D echo negative for vegetations CVA chronic renal failure HTN macular degeneration DM history of urinary retention Plan continue Cefepime day 2 pending urine cx and PSA levels; blood cx are negative will continue to monitor clinically discussed with Dr. Sanchez
--- NOTE | 2018-07-31 16:19 | CP.PCM.DIS ---
<Bibiana Wall - Last Filed: 07/31/18 18:34> Provider - Provider Date of Admission: 07/29/18 20:58 Attending physician: Jakob Newman MD Consults: Dr. Mcghee Time Spent in preparation of Discharge (in minutes): 35 Hospital Course - Lab Results Lab Results: Micro Results 07/29/18 19:15 Blood-Venous Blood Culture - Preliminary NO GROWTH AFTER 24 HOURS 07/29/18 19:00 Blood-Venous Blood Culture - Preliminary NO GROWTH AFTER 24 HOURS Most Recent Lab Values WBC 8.9 10^3/uL (4.5-11.0) 07/30/18 09:40 RBC 3.21 10^6/uL (3.5-6.1) L 07/30/18 09:40 Hgb 9.8 g/dL (14.0-18.0) L 07/30/18 09:40 Hct 31.3 % (42.0-52.0) L 07/30/18 09:40 MCV 97.5 fl (80.0-105.0) 07/30/18 09:40 MCH 30.5 pg (25.0-35.0) 07/30/18 09:40 MCHC 31.3 g/dl (31.0-37.0) 07/30/18 09:40 RDW 15.1 % (11.5-14.5) H 07/30/18 09:40 Plt Count 324 10^3/uL (120.0-450.0) 07/30/18 09:40 MPV 9.7 fl (7.0-11.0) 07/30/18 09:40 Gran % 67.3 % (50.0-68.0) 07/30/18 09:40 Lymph % (Auto) 19.9 % (22.0-35.0) L 07/30/18 09:40 [place] % (Auto) 8.5 % (1.0-6.0) H 07/30/18 09:40 Eos % (Auto) 3.1 % (1.5-5.0) 07/30/18 09:40 Baso % (Auto) 1.2 % (0.0-3.0) 07/30/18 09:40 Gran # 6.01 (1.4-6.5) 07/30/18 09:40 Lymph # (Auto) 1.8 (1.2-3.4) 07/30/18 09:40 [place] # (Auto) 0.8 (0.1-0.6) H 07/30/18 09:40 Eos # (Auto) 0.3 (0.0-0.7) 07/30/18 09:40 Baso # (Auto) 0.11 K/mm3 (0.0-2.0) 07/30/18 09:40 PT 14.8 SECONDS (9.4-12.5) H 07/29/18 19:15 INR 1.29 07/29/18 19:15 APTT 35.8 Seconds (25.1-36.5) 07/29/18 19:15 Sodium 146 mmol/L (132-148) 07/31/18 08:20 Potassium 4.6 mmol/L (3.6-5.0) 07/31/18 08:20 Chloride 114 mmol/L (98-107) H 07/31/18 08:20 Carbon Dioxide 23 mmol/L (21-33) 07/31/18 08:20 Anion Gap 14 (10-20) 07/31/18 08:20 BUN 47 mg/dL (7-21) H 07/31/18 08:20 Creatinine 2.8 mg/dl (0.8-1.5) H 07/31/18 08:20 Est GFR ( Amer) 27 07/31/18 08:20 Est GFR (Non-Af Amer) 22 07/31/18 08:20 Random Glucose 83 mg/dL (70-110) 07/31/18 08:20 Calcium 8.5 mg/dL (8.4-10.5) 07/31/18 08:20 Phosphorus 4.1 mg/dL (2.5-4.5) 07/31/18 08:20 Magnesium 2.1 mg/dL (1.7-2.2) 07/30/18 09:40 Total Bilirubin 0.3 mg/dL (0.2-1.3) 07/31/18 08:20 AST 16 U/L (17-59) L D 07/31/18 08:20 ALT 17 U/L (7-56) 07/31/18 08:20 Alkaline Phosphatase 64 U/L (38-126) 07/31/18 08:20 Ammonia < 9 umol/L (9-33) L 07/29/18 19:15 Lactate Dehydrogenase 410 U/L (333-699) 07/29/18 19:15 Total Creatine Kinase < 20 U/L (35-230) L 07/29/18 19:15 Troponin I 0.01 ng/mL 07/29/18 19:15 Total Protein 5.8 g/dL (5.8-8.3) 07/31/18 08:20 Albumin 2.3 g/dL (3.0-4.8) L 07/31/18 08:20 Globulin 3.5 gm/dL 07/31/18 08:20 Albumin/Globulin Ratio 0.7 (1.1-1.8) L 07/31/18 08:20 Prostate Specific Ag < 0.1 ng/mL (0.00-2.5) 07/31/18 06:30 Urine Color Yellow (YELLOW) 07/29/18 19:46 Urine Appearance Cloudy (CLEAR) 07/29/18 19:46 Urine pH 6.0 (4.7-8.0) 07/29/18 19:46 Ur Specific [place] 1.025 (1.005-1.035) 07/29/18 19:46 Urine Protein 100 mg/dL (<30 mg/dL) H 07/29/18 19:46 Urine Glucose (UA) Negative mg/dL (NEGATIVE) 07/29/18 19:46 Urine Ketones Negative mg/dL (NEGATIVE) 07/29/18 19:46 Urine Blood Large (NEGATIVE) H 07/29/18 19:46 Urine Nitrate Negative (NEGATIVE) 07/29/18 19:46 Urine Bilirubin Negative (NEGATIVE) 07/29/18 19:46 Urine Urobilinogen 0.2 E.U./dL (<1 E.U./dL) 07/29/18 19:46 Ur Leukocyte Esterase Large Addie/uL (NEGATIVE) H 07/29/18 19:46 Urine RBC 20 - 25 /hpf (0-2) 07/29/18 19:46 Urine WBC Tntc /hpf (0-6) 07/29/18 19:46 Ur Epithelial Cells 10 - 12 /hpf (0-5) 07/29/18 19:46 Urine Bacteria Many (NEG) 07/29/18 19:46 Urine Opiates Screen Negative (NEGATIVE) 07/29/18 19:46 Urine Methadone Screen Negative (NEGATIVE) 07/29/18 19:46 Ur Barbiturates Screen Negative (NEGATIVE) 07/29/18 19:46 Ur Phencyclidine Scrn Negative (NEGATIVE) 07/29/18 19:46 Ur Amphetamines Screen Negative (NEGATIVE) 07/29/18 19:46 U Benzodiazepines Scrn Positive (NEGATIVE) H 07/29/18 19:46 U Oth Cocaine Metabols Negative (NEGATIVE) 07/29/18 19:46 U Cannabinoids Screen Negative (NEGATIVE) 07/29/18 19:46 Alcohol, Quantitative < 10 mg/dL (0-10) 07/29/18 19:15 - Hospital Course Hospital Course: 82 year old male with a past medical history of Alzheimer's dementia, CAD, CVA, CKD III/IV, and recurrent UTIs who presented [place] [facility] [place] for altered mental status. In the ED, he was found to afebrile with a white count of 10,000. Chest X -ray showed no pneumonia while head CT showed no acute changes. Urinalysis was positive for leukocyte esterase. At the time of my examination, the patient was resting comfortably. He denies any pain, visual changes, shortness of breath, or chest pain. He is not hallucinating or showing any signs of delirium. 12 point ROS was negative, although limited secondary to the patient's dementia. Infectious disease was consulted and empircally kept the patient on Cefepime. Blood cultures and urine cultures turned out to be be negative while the patient remained afebrile without leukocytosis . He was discharged with aspiration and dysphagia precautions to his care home residence with the below written instructions and recommendations. - Date & Time of H&P Date of H&P: 07/31/18 Time of H&P: 16:19 Discharge Exam - Head Exam Head Exam: NORMAL INSPECTION - Eye Exam Eye Exam: EOMI, Normal appearance - ENT Exam ENT Exam: Mucous Membranes Moist - Neck Exam Neck exam: Normal Inspection - Respiratory Exam Respiratory Exam: Clear to PA & Lateral, NORMAL BREATHING PATTERN - Cardiovascular Exam Cardiovascular Exam: RRR, +S1, +S2 - GI/Abdominal Exam GI & Abdominal Exam: Normal Bowel Sounds. absent: Distended - Extremities Exam Extremities exam: normal inspection - Neurological Exam Neurological exam: Alert, CN II-XII Intact, Oriented x3 - Psychiatric Exam Psychiatric exam: Normal Affect, Normal Mood - Skin Skin Exam: Dry, Intact, Normal Color, Warm Discharge Plan - Follow Up Plan Condition: FAIR Disposition: NURSING FACILITY MEDICAID CERT Instructions: Urinary Tract Infection, Adult (DC), Preventing Falls, Pneumococcal Polysaccharide Vaccine (23-Valent), Flu Vaccine, Altered Mental Status (GEN) Additional Instructions: 1) Patient to follow up with PMD within one week of discharge. 2) Patient to continue home medications as before, except patient is not to take Augmentin. 3) Patient is to stay on a pureed with honey thickened liquids diet for aspiration precautions and dysphagia. <Jakob Newman - Last Filed: 07/31/18 20:28> Provider - Provider Date of Admission: 07/29/18 20:58 Attending physician: Jakob Newman MD Hospital Course - Lab Results Lab Results: Micro Results 07/29/18 19:15 Blood-Venous Blood Culture - Preliminary NO GROWTH AFTER 48 HOURS 07/29/18 19:00 Blood-Venous Blood Culture - Preliminary NO GROWTH AFTER 48 HOURS 07/29/18 19:46 Urine Urine Culture - Final No Growth (<1,000 CFU/ML) Most Recent Lab Values WBC 8.9 10^3/uL (4.5-11.0) 07/30/18 09:40 RBC 3.21 10^6/uL (3.5-6.1) L 07/30/18 09:40 Hgb 9.8 g/dL (14.0-18.0) L 07/30/18 09:40 Hct 31.3 % (42.0-52.0) L 07/30/18 09:40 MCV 97.5 fl (80.0-105.0) 07/30/18 09:40 MCH 30.5 pg (25.0-35.0) 07/30/18 09:40 MCHC 31.3 g/dl (31.0-37.0) 07/30/18 09:40 RDW 15.1 % (11.5-14.5) H 07/30/18 09:40 Plt Count 324 10^3/uL (120.0-450.0) 07/30/18 09:40 MPV 9.7 fl (7.0-11.0) 07/30/18 09:40 Gran % 67.3 % (50.0-68.0) 07/30/18 09:40 Lymph % (Auto) 19.9 % (22.0-35.0) L 07/30/18 09:40 [place] % (Auto) 8.5 % (1.0-6.0) H 07/30/18 09:40 Eos % (Auto) 3.1 % (1.5-5.0) 07/30/18 09:40 Baso % (Auto) 1.2 % (0.0-3.0) 07/30/18 09:40 Gran # 6.01 (1.4-6.5) 07/30/18 09:40 Lymph # (Auto) 1.8 (1.2-3.4) 07/30/18 09:40 [place] # (Auto) 0.8 (0.1-0.6) H 07/30/18 09:40 Eos # (Auto) 0.3 (0.0-0.7) 07/30/18 09:40 Baso # (Auto) 0.11 K/mm3 (0.0-2.0) 07/30/18 09:40 PT 14.8 SECONDS (9.4-12.5) H 07/29/18 19:15 INR 1.29 07/29/18 19:15 APTT 35.8 Seconds (25.1-36.5) 07/29/18 19:15 Sodium 146 mmol/L (132-148) 07/31/18 08:20 Potassium 4.6 mmol/L (3.6-5.0) 07/31/18 08:20 Chloride 114 mmol/L (98-107) H 07/31/18 08:20 Carbon Dioxide 23 mmol/L (21-33) 07/31/18 08:20 Anion Gap 14 (10-20) 07/31/18 08:20 BUN 47 mg/dL (7-21) H 07/31/18 08:20 Creatinine 2.8 mg/dl (0.8-1.5) H 07/31/18 08:20 Est GFR ( Amer) 27 07/31/18 08:20 Est GFR (Non-Af Amer) 22 07/31/18 08:20 Random Glucose 83 mg/dL (70-110) 07/31/18 08:20 Calcium 8.5 mg/dL (8.4-10.5) 07/31/18 08:20 Phosphorus 4.1 mg/dL (2.5-4.5) 07/31/18 08:20 Magnesium 2.1 mg/dL (1.7-2.2) 07/30/18 09:40 Total Bilirubin 0.3 mg/dL (0.2-1.3) 07/31/18 08:20 AST 16 U/L (17-59) L D 07/31/18 08:20 ALT 17 U/L (7-56) 07/31/18 08:20 Alkaline Phosphatase 64 U/L (38-126) 07/31/18 08:20 Ammonia < 9 umol/L (9-33) L 07/29/18 19:15 Lactate Dehydrogenase 410 U/L (333-699) 07/29/18 19:15 Total Creatine Kinase < 20 U/L (35-230) L 07/29/18 19:15 Troponin I 0.01 ng/mL 07/29/18 19:15 Total Protein 5.8 g/dL (5.8-8.3) 07/31/18 08:20 Albumin 2.3 g/dL (3.0-4.8) L 07/31/18 08:20 Globulin 3.5 gm/dL 07/31/18 08:20 Albumin/Globulin Ratio 0.7 (1.1-1.8) L 07/31/18 08:20 Prostate Specific Ag < 0.1 ng/mL (0.00-2.5) 07/31/18 06:30 Urine Color Yellow (YELLOW) 07/29/18 19:46 Urine Appearance Cloudy (CLEAR) 07/29/18 19:46 Urine pH 6.0 (4.7-8.0) 07/29/18 19:46 Ur Specific [place] 1.025 (1.005-1.035) 07/29/18 19:46 Urine Protein 100 mg/dL (<30 mg/dL) H 07/29/18 19:46 Urine Glucose (UA) Negative mg/dL (NEGATIVE) 07/29/18 19:46 Urine Ketones Negative mg/dL (NEGATIVE) 07/29/18 19:46 Urine Blood Large (NEGATIVE) H 07/29/18 19:46 Urine Nitrate Negative (NEGATIVE) 07/29/18 19:46 Urine Bilirubin Negative (NEGATIVE) 07/29/18 19:46 Urine Urobilinogen 0.2 E.U./dL (<1 E.U./dL) 07/29/18 19:46 Ur Leukocyte Esterase Large Addie/uL (NEGATIVE) H 07/29/18 19:46 Urine RBC 20 - 25 /hpf (0-2) 07/29/18 19:46 Urine WBC Tntc /hpf (0-6) 07/29/18 19:46 Ur Epithelial Cells 10 - 12 /hpf (0-5) 07/29/18 19:46 Urine Bacteria Many (NEG) 07/29/18 19:46 Urine Opiates Screen Negative (NEGATIVE) 07/29/18 19:46 Urine Methadone Screen Negative (NEGATIVE) 07/29/18 19:46 Ur Barbiturates Screen Negative (NEGATIVE) 07/29/18 19:46 Ur Phencyclidine Scrn Negative (NEGATIVE) 07/29/18 19:46 Ur Amphetamines Screen Negative (NEGATIVE) 07/29/18 19:46 U Benzodiazepines Scrn Positive (NEGATIVE) H 07/29/18 19:46 U Oth Cocaine Metabols Negative (NEGATIVE) 07/29/18 19:46 U Cannabinoids Screen Negative (NEGATIVE) 07/29/18 19:46 Alcohol, Quantitative < 10 mg/dL (0-10) 07/29/18 19:15 - Hospital Course Hospital Course: Pt seen and examined. I have reviewed the note of the site medical director and agree with it. I have discussed the assessment and plan with the resident. I have reviewed the patient's labs and medications. Pt with swallowing evaluation that was done and reviewed. Dementia- Alz type adn stable. He is more awake then before. Will go back to [facility]. No pain. Able to eat. CAD stable.
== END 2018-07-31 18:29 | DRG 690 ==
LOC: ED 18:43 → ERH 20:58 → 5RNO 23:16
PROVIDERS: ADMIT Internal Medicine Nephrology; ATTEND Internal Medicine Nephrology
DX: N39.0 Urinary tract infection, site not specified (principal); I25.10 Atherosclerotic heart disease of native coronary artery without angina pectoris; G30.9 Alzheimer's disease, unspecified; F02.80 Dementia in other diseases classified elsewhere, unspecified severity, without behavioral disturbance, psychotic disturbance, mood disturbance, and anxiety; E11.22 Type 2 diabetes mellitus with diabetic chronic kidney disease; I12.9 Hypertensive chronic kidney disease with stage 1 through stage 4 chronic kidney disease, or unspecified chronic kidney disease; N18.3 Chronic kidney disease, stage 3 (moderate); R13.10 Dysphagia, unspecified; I25.2 Old myocardial infarction; H35.30 Unspecified macular degeneration; Z87.440 Personal history of urinary (tract) infections; Z86.73 Personal history of transient ischemic attack (TIA), and cerebral infarction without residual deficits